=== PATIENT | male | born 1975 | race American Indian/Alaskan Native ===

== ENCOUNTER 2021-01-12 18:04 | Emergency (ER) | payer OTHER, SELFPAY ==
[2021-01-12 18:12] VITALS: BP 150/101; PULSE 81; RESP 16; TEMP 37.2; BMI 26.7
--- NOTE | 2021-01-12 18:26 | ED.GENADULT ---
HPI - General Adult General Chief complaint: Psychiatric Symptoms Stated complaint: crisis Time Seen by Provider: 01/12/21 18:09 Source: patient Mode of arrival: ambulatory Limitations: no limitations History of Present Illness HPI narrative: Patient presents to ED for alcohol intoxication and acting aggressive toward family. Patient brought in under police custody. Family called because of a concern because patient self become erratic and makes being homicidal statements toward staff. deck officer and behavior health network evaluation also states this morning patient told his mother that he want to kill himself and also last Tuesday he was found wandering in the street. Patient himself presently denies any homicidal or suicidal ideation. Related Data Allergies Allergy/AdvReac Type Severity Reaction Status Date / Time duloxetine [From CYMBALTA] Allergy Unknown RASH Verified 01/12/21 18:21 SEAFOOD Allergy Unknown ANAPHYLAXIS Uncoded 08/07/20 15:05 Review of Systems Review of Systems: Yes all other systems are reviewed and are negative Constitutional: Constitutional: Reports as per HPI and Reports no additional constitutional complaints Eyes: Eyes: Reports as per HPI and Reports no additional eye complaints ENT: Reports system reviewed and no additional complaints, except as documented and Reports as per HPI Cardiovascular: Cardiovascular: Reports as per HPI and Reports no additional cardiovascular complaints Respiratory: Respiratory: Reports as per HPI and Reports no additional respiratory complaints Gastrointestinal: Gastrointestinal: Reports as per HPI and Reports no additional gastrointestinal complaints Genitourinary: Genitourinary: Reports as per HPI Musculoskeletal: Musculoskeletal: Reports no additional musculoskeletal complaints and Reports as per HPI Neurologic: Reports system reviewed and no additional complaints, except as documented and Reports as per HPI Psychiatric: Psychiatric: Reports no additional psychiatric complaints and Reports as per HPI [facility] Past Medical History Medical History (Updated 01/12/21 @ 18:15 by Nancy Mathis) Anxiety Depression Social History Social History Advance Directives: No Advance Directives Information Provided: Yes Physical Exam Vital Signs: Vital Signs: Last Vital Signs Temp 98.9 F 01/12/21 22:29 Pulse 66 01/12/21 22:29 Resp 16 01/12/21 22:29 BP 155/93 H 01/12/21 22:29 Pulse Ox 98 01/12/21 22:29 Body Mass Index 26.7 Const: Other: Alcohol on breath General: cooperative, healthy appearing, comfortable, no acute distress, well developed, alert, awake and Physically active Orientation/consciousness: patient oriented x3 HENMT: Head: Yes normal to inspection, Yes No palpable skull fracture present, Yes normocephalic, Yes atraumatic, No abrasion, No Holder's sign, No contusion, No cranial bruits, No hematoma, No laceration, No occipital foramen tenderness, No palpable skull fracture, No raccoon eyes, No scalp tenderness, No Temporal artery tenderness present and No periorbital ecchymosis Eyes: General: appearance normal, both eyes and all related structures Neck: Neck: Yes normal visual inspection, Yes full ROM, Yes no lymphadenopathy, Yes no meningeal signs, Yes trachea midline, Yes supple and No tender Chest: Chest palpation & inspection: normal inspection of the chest and normal palpation of entire chest wall Resp: Effort & Inspection: normal respiratory effort and able to speak in complete sentences Auscultation: clear to auscultation bilaterally Cardio: Jugular venous distension: no JVD Heart sounds: S1 normal heart sound present and S2 normal heart sound present GI: Inspection: Yes normal to inspection and No abdominal wall ecchymosis Palpation (GI): Soft to palpation, not firm, nontender, no guarding and not rigid : General: No CVA tenderness and Yes no CVA tenderness Back/Spine/Pelvis: Back: no CVA tenderness, No CVA tenderness and No back tenderness Skin: General skin exam: no rashes or lesions noted and elasticity normal Neuro: General: patient oriented x3, no meningeal signs and CN's II-XI intact bilaterally Cranial nerves: Yes CN's II-XII intact bilaterally Extrem: General: Yes normal to inspection and Yes full ROM Psych: Appearance: grossly normal, well kempt and not disheveled Course Course Course Narrative: Patient will have lab work done and S evaluation. Reevaluation(s) Reevaluation #1: Pending N evaluation. cASE SIGNED OUT TO kavon Braden Time: 22:10 Medical Decision Making Lab Data Result diagrams: 01/12/21 19:32 01/12/21 19:32 Labs: Lab Results 01/12/21 01/12/21 01/12/21 Range/Units 19:30 19:32 19:32 WBC 12.0 H (4.8-10.8) X10*3/uL RBC 4.66 (4.60-5.80) X10*6/uL Hgb 14.4 (14.0-18.0) g/dl Hct 43.3 (42-52) % MCV 92.9 (80-98) fL MCH 30.9 (27.0-33.0) pg MCHC 33.3 (31.0-36.0) g/dl RDW 12.5 (11.0-16.0) % Plt Count 308 (160-400) X10*3/uL MPV 9.0 L (9.4-12.4) fL Immature Gran % (Auto) 0.3 (0.0-0.4) % Neut % (Auto) 55.5 (45-73) % Lymph % (Auto) 36.2 (20-40) % [place] % (Auto) 5.3 (2-11) % Eos % (Auto) 2.2 (0-4) % Baso % (Auto) 0.5 (0-2) % Lymph # (Auto) 4.3 (1.2-4.9) X10*3/uL [place] # (Auto) 0.6 (0.1-1.2) X10*3/uL Eos # (Auto) 0.3 (0.0-0.4) X10*3/uL Baso # (Auto) 0.1 (0.0-0.2) X10*3/uL Abs Immat Gran (auto) 0.04 H (0.00-0.03) X10*3/uL Absolute Neuts (auto) 6.6 (2.0-8.3) X10*3/uL Absolute Nucleated RBC 0.000 (0.0-0.012) X10*3/uL Nucleated RBC % (auto) 0.0 (0.0-0.2) /100WBC Sodium 139 (135-145) mmol/L Potassium 3.9 (3.3-5.1) mmol/L Chloride 106 (96-108) mmol/L Carbon Dioxide 25 (22-29) mmol/L Anion Gap 12 (12-20) BUN 11 (9-16) mg/dL Creatinine 0.85 (0.5-1.4) mg/dL Estim Creat Clear Calc 116.8 Estimated GFR > 60 Random Glucose 83 (60-115) mg/dL Calcium 8.9 (8.4-10.2) mg/dL Total Bilirubin 0.6 (0.0-1.0) mg/dL Direct Bilirubin 0.3 (0.0-0.5) mg/dL AST 23 (5-37) U/L ALT 26 (0-40) U/L Alkaline Phosphatase 77 (39-117) U/L Total Protein 7.0 (6.5-8.0) g/dL Albumin 4.0 (3.5-5.0) g/dL Urine Opiates Screen Not Detected (Not Detect) Ur Barbiturates Screen Not Detected (Not Detect) Ur Phencyclidine Scrn Not Detected (Not Detect) Ur Amphetamines Screen Not Detected (Not Detect) U Benzodiazepines Scrn Not Detected (Not Detect) Urine Cocaine Screen Not Detected (Not Detect) U Marijuana (THC) Screen POSITIVE H (Not Detect) Ethyl Alcohol mg/dL COVID-19 (RAF) (Negative) COVID-19 Clin Com 01/12/21 01/12/21 Range/Units 19:32 20:16 WBC (4.8-10.8) X10*3/uL RBC (4.60-5.80) X10*6/uL Hgb (14.0-18.0) g/dl Hct (42-52) % MCV (80-98) fL MCH (27.0-33.0) pg MCHC (31.0-36.0) g/dl RDW (11.0-16.0) % Plt Count (160-400) X10*3/uL MPV (9.4-12.4) fL Immature Gran % (Auto) (0.0-0.4) % Neut % (Auto) (45-73) % Lymph % (Auto) (20-40) % [place] % (Auto) (2-11) % Eos % (Auto) (0-4) % Baso % (Auto) (0-2) % Lymph # (Auto) (1.2-4.9) X10*3/uL [place] # (Auto) (0.1-1.2) X10*3/uL Eos # (Auto) (0.0-0.4) X10*3/uL Baso # (Auto) (0.0-0.2) X10*3/uL Abs Immat Gran (auto) (0.00-0.03) X10*3/uL Absolute Neuts (auto) (2.0-8.3) X10*3/uL Absolute Nucleated RBC (0.0-0.012) X10*3/uL Nucleated RBC % (auto) (0.0-0.2) /100WBC Sodium (135-145) mmol/L Potassium (3.3-5.1) mmol/L Chloride (96-108) mmol/L Carbon Dioxide (22-29) mmol/L Anion Gap (12-20) BUN (9-16) mg/dL Creatinine (0.5-1.4) mg/dL Estim Creat Clear Calc Estimated GFR Random Glucose (60-115) mg/dL Calcium (8.4-10.2) mg/dL Total Bilirubin (0.0-1.0) mg/dL Direct Bilirubin (0.0-0.5) mg/dL AST (5-37) U/L ALT (0-40) U/L Alkaline Phosphatase (39-117) U/L Total Protein (6.5-8.0) g/dL Albumin (3.5-5.0) g/dL Urine Opiates Screen (Not Detect) Ur Barbiturates Screen (Not Detect) Ur Phencyclidine Scrn (Not Detect) Ur Amphetamines Screen (Not Detect) U Benzodiazepines Scrn (Not Detect) Urine Cocaine Screen (Not Detect) U Marijuana (THC) Screen (Not Detect) Ethyl Alcohol 170 mg/dL COVID-19 (RAF) Negative (Negative) COVID-19 Clin Com See Note
[2021-01-12 19:46] LABS: MANUAL DIFF FLAG NO
[2021-01-12 19:48] LABS: Basophils Absolute Auto 0.1 X10*3/uL (0.0-0.2); Basophils Percent Auto 0.5 % (0-2); Eosinophils Absolute Auto 0.3 X10*3/uL (0.0-0.4); Eosinophils Percent Auto 2.2 % (0-4); Hematocrit 43.3 % (42-52); Hemoglobin 14.4 g/dl (14.0-18.0); Imm Gran Abs Auto 0.04 X10*3/uL (0.00-0.03); Imm Gran Pct Auto 0.3 % (0.0-0.4); Lymphocytes Absolute Auto 4.3 X10*3/uL (1.2-4.9); Lymphocytes Percent Auto 36.2 % (20-40); Mean Corpuscular HGB Conc 33.3 g/dl (31.0-36.0); Mean Corpuscular Hemoglobin 30.9 pg (27.0-33.0); Mean Corpuscular Volume 92.9 fL (80-98); Monocytes Absolute Auto 0.6 X10*3/uL (0.1-1.2); Monocytes Percent Auto 5.3 % (2-11); Neutrophils Absolute Auto 6.6 X10*3/uL (2.0-8.3); Neutrophils Percent Auto 55.5 % (45-73); Platelet Count 308 X10*3/uL (160-400); Red Blood Count 4.66 X10*6/uL (4.60-5.80); Red Cell Distribution Width 12.5 % (11.0-16.0)
[2021-01-12 20:03] LABS: Amphetamine Screen Urine Not Detected (Not Detect); Barbiturates, Urine Not Detected (Not Detect); Cannabinoid Screen Urine POSITIVE (Not Detect); Cocaine Screen Urine Not Detected (Not Detect); Opiate Screen Urine Not Detected (Not Detect); Phencyclidine Screen Urine Not Detected (Not Detect)
--- NOTE | 2021-01-12 20:03 | PC.NURSE ---
Pt resting on recliner in NAD, breathing with ease on RA. Pt aaox4, calm cooperative at this time, agreeable and pleasant to pt care at this time. Pt offers no immediate concerns. Sitter at recliner's side.
[2021-01-12 20:11] LABS: Benzodiazepines Screen Urine Not Detected (Not Detect)
[2021-01-12 20:12] LABS: Ethanol 170 mg/dL
[2021-01-12 20:15] LABS: Alanine Aminotransferase 26 U/L (0-40); Alkaline Phosphatase 77 U/L (39-117); Anion Gap 12 (12-20); Aspartate Amino Transferase 23 U/L (5-37); Bilirubin Direct 0.3 mg/dL (0.0-0.5); Bilirubin Total 0.6 mg/dL (0.0-1.0); Blood Urea Nitrogen 11 mg/dL (9-16); Calcium 8.9 mg/dL (8.4-10.2); Carbon Dioxide 25 mmol/L (22-29); Chloride 106 mmol/L (96-108); Creatinine Clr Calc Pharmacy 116.8; Estimated Glomerular Filt Rate > 60; Glucose Random 83 mg/dL (60-115); Potassium 3.9 mmol/L (3.3-5.1); Sodium 139 mmol/L (135-145)
[2021-01-12 20:39] LABS: COVID-19 Test Negative (Negative)
[2021-01-12 22:29] VITALS: BP 155/93; PULSE 66; RESP 16; TEMP 37.2; O2SAT 98
--- NOTE | 2021-01-12 22:53 | MHC.CARE ---
Late entry-- referral faxed to [facility] for crisis evaluation, called to confirm, ETA after 11:30pm
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
[2021-01-13] VITALS (9 sets, daily range): BP systolic 143–155; BP diastolic 84–94; PULSE 59–78; RESP 14–20; TEMP 36.5–37.1; O2SAT 97–99
--- NOTE | 2021-01-13 00:13 | PC.NURSE ---
Pt awaiting crisis eval, is aware of plan. Pt is agreeable to plan but states they need to hurry up or I'm leaving. Pt refusing nighttime meds. Pt is calm in conversation. Sitter at recliner's side.
--- NOTE | 2021-01-13 01:54 | PC.NURSE ---
Pt resting in recliner in NAD, breathing with ease on RA. Pt quiet, minimally conversational with staff. Pt compliant with pt care but easily agitated with questioning. Sitter at recliner's side.
--- NOTE | 2021-01-13 02:57 | PC.NURSE ---
Per Jackie, pt is bedsearch for inpatient psych care
--- NOTE | 2021-01-13 04:57 | PC.NURSE ---
PT EVALUATED BY N, AWARE THAT HE WILL NEED TO STAY AND WILL BE CONSIDERED A BED SEARCH. PT REMAINS A SECTION 12.
[2021-01-13] MEDS: LORazepam 1 MG TABLET 2 MG PO ×2 (09:23→21:41)
[2021-01-13] MEDS: FLUoxetine HCl 20 MG CAPSULE 40 MG PO (09:23)
[2021-01-13] MEDS: Lithium Carbonate 300 MG CAPSULE 600 MG PO ×2 (09:23→21:05)
--- NOTE | 2021-01-13 09:25 | PC.NURSE ---
Pt calm/cooperative. Accepted AM meds and given PRN ativan for c/o increased anxiety. Pt denies SI/HI at this time but reports being upset over family calling police and sending him to ED. Pt observer in place for safety. Vitals stable.
--- NOTE | 2021-01-13 09:27 | PC.NURSE ---
Section 12 bedsearch
--- NOTE | 2021-01-13 14:01 | PC.NURSE ---
S/P Ativan pt slept most of morning. Calm/cooperative. Spoke with Socorro (childcare director from [facility]-contact [phone]) and updated with verbal permission of pt. Pt observer at bedside for monitoring/safety
--- NOTE | 2021-01-13 14:50 | PC.NURSE ---
Pt requesting to use phone, per report pt threatening to family members on phone last night. This RN informing pt he will be unable to use phone d/t threats made. Pt agreeable to not make any further threatening statements and wants to apologize. Pt spoke to brothraad Du on phone and remained calm/cooperative. Pt ate lunch, pt observer remains by side
--- NOTE | 2021-01-13 18:13 | PC.NURSE ---
Pt transferred from main ED- pt cooperative, affect even- pt familiar w/ pod and w/ psych inpatient process. states he has been to [facility] and hopes to be able to go again. pt denies si, reports only anxiety at this time.
--- NOTE | 2021-01-13 19:45 | PC.NURSE ---
Patient in bed appears sleeping, no distress observed/reported at this time, will continue to monitor.
[2021-01-13] MEDS: traZODone HCL 50 MG TABLET 150 MG PO (21:05)
--- NOTE | 2021-01-14 07:17 | PC.NURSE ---
REPORT FROM TAI, PT PROVIDED BREAKFAST TRAY, SLEEPING AT THIS TIME
[2021-01-14 09:36] VITALS: BP 117/76; PULSE 66; RESP 16; TEMP 37.2; O2SAT 98
[2021-01-14] MEDS: Lithium Carbonate 300 MG CAPSULE 600 MG PO ×2 (09:39→20:20)
[2021-01-14] MEDS: FLUoxetine HCl 20 MG CAPSULE 40 MG PO (09:39)
[2021-01-14] MEDS: LORazepam 1 MG TABLET 2 MG PO ×2 (09:40→21:45)
--- NOTE | 2021-01-14 15:41 | PC.NURSE ---
Patient in no distress. Patient resting.
[2021-01-14 17:05] VITALS: BP 147/83; PULSE 60; RESP 16; TEMP 37.2; O2SAT 99
--- NOTE | 2021-01-14 19:36 | PC.NURSE ---
Patient is on phone talking to family member and is being supervised due to homicidal statements that he makes when he gets agitated. Patient presents with irritable behavior. No distress reported, will continue to monitor.
[2021-01-14] MEDS: traZODone HCL 50 MG TABLET 150 MG PO (20:20)
[2021-01-14 21:04] VITALS: BP 154/110; PULSE 57; RESP 18; TEMP 37.2; O2SAT 99
[2021-01-15 06:00] VITALS: BP 125/78; PULSE 60; RESP 16; TEMP 36.7; O2SAT 99
--- NOTE | 2021-01-15 06:59 | PC.NURSE ---
Report recieved Pt currently sleeping, respirations even and unlabored, in no apparent distress. Pt is inpatient bedsearch.
[2021-01-15] MEDS: FLUoxetine HCl 20 MG CAPSULE 40 MG PO (09:03)
[2021-01-15] MEDS: Lithium Carbonate 300 MG CAPSULE 600 MG PO (09:04)
[2021-01-15] MEDS: LORazepam 1 MG TABLET 2 MG PO ×2 (09:07→16:07)
[2021-01-15 09:17] VITALS: BP 136/76; PULSE 59; RESP 16; TEMP 37.2; O2SAT 99
--- NOTE | 2021-01-15 10:07 | PC.NURSE ---
PT sleeping, wakes easily to verbal stimuli. PT calm and cooperative, denies complaints.
== END 2021-01-15 16:23 ==
PROVIDERS: Physician Assistant; Emergency Provider Emergency Medicine
DX: F31.9 Bipolar disorder, unspecified (principal); F10.920 Alcohol use, unspecified with intoxication, uncomplicated; Y90.6 Blood alcohol level of 120-199 mg/100 ml; F12.90 Cannabis use, unspecified, uncomplicated; R45.850 Homicidal ideations; F41.9 Anxiety disorder, unspecified; F32.9 Major depressive disorder, single episode, unspecified; Z20.822 Contact with and (suspected) exposure to COVID-19
CPT/HCPCS: 36415; 80053; 80076; 80307; 80320; 82248; 85025; 87635; 99285

== ENCOUNTER 2021-01-29 15:19 | Emergency (ER) | payer OTHER, SELFPAY ==
[2021-01-29 15:30] VITALS: BP 141/74; PULSE 66; RESP 16; TEMP 36.7; O2SAT 97; BMI 27.8
[2021-01-29 15:50] LABS: Glucose Urine UA NEG (NEG); Leukocyte Esterase Urine NEG (NEG); Nitrite Urine NEG (NEG); PH 6.5 (5.0-8.0); Specific Gravity - Urine <= 1.005 (1.005-1.025); Urine Blood NEG (NEG); Urine Ketones NEG (NEG); Urine Protein NEG (NEG-TRACE)
[2021-01-29 15:53] LABS: Appearance Urine CLEAR; Color Urine YELLOW
[2021-01-29 16:18] LABS: Amphetamine Screen Urine Not Detected (Not Detect); Barbiturates, Urine Not Detected (Not Detect); Benzodiazepines Screen Urine Not Detected (Not Detect); Cannabinoid Screen Urine POSITIVE (Not Detect); Cocaine Screen Urine POSITIVE (Not Detect); Opiate Screen Urine Not Detected (Not Detect); Phencyclidine Screen Urine Not Detected (Not Detect)
--- NOTE | 2021-01-29 17:40 | ED_ITS ---
HPI - Psych General Chief Complaint: Psychiatric Symptoms Stated Complaint: SI Time Seen by Provider: 01/29/21 17:40 Source: patient Mode of arrival: ambulatory Limitations: no limitations History of Present Illness HPI Narrative: 45-year-old male with psych history, patient under lot of stress because he is taking care of his mother and his brother who both sick with COVID-19, patient fear anxious under lot of stress feeling depressed and feeling suicidal. Patient had a recent psych admission last week for similar presentation. Patient had a history of suicidal attempt in the past. Related Data Home Medications Medication Instructions Recorded Confirmed fluoxetine 1 cap PO QAM 01/12/21 01/12/21 lithium carbonate 2 cap PO BID 01/12/21 01/12/21 lorazepam 1 tab PO BID PRN 01/12/21 01/12/21 trazodone 1 tab PO BEDTIME 01/12/21 01/12/21 Allergies Allergy/AdvReac Type Severity Reaction Status Date / Time duloxetine [From CYMBALTA] Allergy Unknown RASH Verified 01/12/21 18:21 SEAFOOD Allergy Unknown ANAPHYLAXIS Uncoded 08/07/20 15:05 Review of Systems 2 Review of Systems: Yes all other systems are reviewed and are negative [facility] Past Medical History Medical History Anxiety Depression Social History Social History Advance Directives: No Advance Directives Information Provided: No Physical Exam Vital Signs: Vital Signs: Last Vital Signs Temp 98.1 F 01/29/21 15:30 Pulse 66 01/29/21 15:30 Resp 16 01/29/21 15:30 BP 141/74 H 01/29/21 15:30 Pulse Ox 97 01/29/21 15:30 Body Mass Index 27.8 MDM - Psych Lab Data Labs: Lab Results 01/29/21 01/29/21 Range/Units 15:37 15:37 Urine Color YELLOW Urine Appearance CLEAR Urine pH 6.5 (5.0-8.0) Ur Specific [place] <= 1.005 (1.005-1.025) Urine Protein NEG (NEG-TRACE) MG/DL Urine Glucose (UA) NEG (NEG) MG/DL Urine Ketones NEG (NEG) MG/DL Urine Blood NEG (NEG) Urine Nitrite NEG (NEG) Ur Leukocyte Esterase NEG (NEG) Urine Opiates Screen Not Detected (Not Detect) Ur Barbiturates Screen Not Detected (Not Detect) Ur Phencyclidine Scrn Not Detected (Not Detect) Ur Amphetamines Screen Not Detected (Not Detect) U Benzodiazepines Scrn Not Detected (Not Detect) Urine Cocaine Screen POSITIVE H (Not Detect) U Marijuana (THC) Screen POSITIVE H (Not Detect) Discharge Plan Discharge Prescriptions: No Action fluoxetine 40 mg capsule 1 cap PO QAM RF: 0 lorazepam 2 mg tablet 1 tab PO BID PRN (Reason: Anxiety) RF: 0 lithium carbonate 300 mg capsule 2 cap PO BID RF: 0 trazodone 150 mg tablet 1 tab PO BEDTIME RF: 0
[2021-01-29 18:00] VITALS: BP 139/77; PULSE 65; RESP 18; TEMP 37.1; O2SAT 97
--- NOTE | 2021-01-29 18:42 | PC.NURSE ---
[facility] faxed and called. Confirmed with Jasbir
[2021-01-29 21:26] VITALS: BP 140/87; PULSE 55; RESP 18; TEMP 36.8; O2SAT 99
--- NOTE | 2021-01-29 21:49 | PC.NURSE ---
pharmacy present and pt med reconciliation is being done at this time. pt states he has been weaned off of his lithium and now is on a new mood stabalizer unknown at this time.
[2021-01-29 22:00] VITALS: BP 119/68; RESP 18; TEMP 36.8; O2SAT 97
[2021-01-30] MEDS: LORazepam 1 MG TABLET PO ×3 (01:28→15:43)
[2021-01-30] MEDS: traZODone HCL 100 MG TABLET PO (01:28)
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
--- NOTE | 2021-01-30 07:04 | PC.NURSE ---
Report received. PT currently sleeping, respirations even and unlabored, in no apparent distress. Pt waiting to be seen by N.
--- NOTE | 2021-01-30 08:55 | ECG_ITS ---
Test Reason : [employer] Blood Pressure : / mmHG Vent. Rate : 045 BPM Atrial Rate : 045 BPM P-R Int : 142 ms QRS Dur : 086 ms QT Int : 454 ms P-R-T Axes : 040 049 047 degrees QTc Int : 392 ms Sinus bradycardia with sinus arrhythmia Voltage criteria for left ventricular hypertrophy ST elevation, consider early repolarization Abnormal ECG When compared with ECG of 27-MAY-2020 17:28, QT has shortened Referred By: Mumtaz Ambrosio Electronically Signed By:CLOVIS MONCADA MD
[2021-01-30 09:56] VITALS: BP 114/68; PULSE 55; RESP 16; TEMP 36.6; O2SAT 98
[2021-01-30 13:13] LABS: MANUAL DIFF FLAG NO
[2021-01-30 13:15] LABS: Basophils Percent Auto 0.6 % (0-2); Eosinophils Absolute Auto 0.4 X10*3/uL (0.0-0.4); Eosinophils Percent Auto 5.5 % (0-4); Hematocrit 45.6 % (42-52); Imm Gran Abs Auto 0.01 X10*3/uL (0.00-0.03); Imm Gran Pct Auto 0.1 % (0.0-0.4); Lymphocytes Absolute Auto 2.6 X10*3/uL (1.2-4.9); Lymphocytes Percent Auto 39.1 % (20-40); Mean Corpuscular HGB Conc 32.9 g/dl (31.0-36.0); Mean Corpuscular Hemoglobin 30.8 pg (27.0-33.0); Mean Corpuscular Volume 93.6 fL (80-98); Mean Platelet Volume 8.8 fL (9.4-12.4); Monocytes Absolute Auto 0.4 X10*3/uL (0.1-1.2); Monocytes Percent Auto 5.9 % (2-11); Neutrophils Absolute Auto 3.3 X10*3/uL (2.0-8.3); Neutrophils Percent Auto 48.8 % (45-73); Platelet Count 299 X10*3/uL (160-400); Red Blood Count 4.87 X10*6/uL (4.60-5.80); Red Cell Distribution Width 11.8 % (11.0-16.0); White Blood Count 6.7 X10*3/uL (4.8-10.8)
[2021-01-30 13:20] VITALS: BP 152/82; PULSE 43; RESP 18; TEMP 37; O2SAT 98
[2021-01-30 13:37] LABS: COVID-19 Test Negative (Negative)
[2021-01-30 13:56] LABS: Alanine Aminotransferase 24 U/L (0-40); Alkaline Phosphatase 81 U/L (39-117); Anion Gap 9 (12-20); Aspartate Amino Transferase 20 U/L (5-37); Bilirubin Total 0.5 mg/dL (0.0-1.0); Blood Urea Nitrogen 15 mg/dL (9-16); Calcium 8.8 mg/dL (8.4-10.2); Carbon Dioxide 33 mmol/L (22-29); Chloride 102 mmol/L (96-108); Creatinine Clr Calc Pharmacy 115.5; Estimated Glomerular Filt Rate > 60; Glucose Random 101 mg/dL (60-115); Potassium 4.6 mmol/L (3.3-5.1); Sodium 139 mmol/L (135-145); Total Protein 6.7 g/dL (6.5-8.0)
--- NOTE | 2021-01-30 17:42 | PC.NURSE ---
Pt resting, calm and cooperative. PT waiting to be seen by [facility]. Pt continues to endorse increased depression with SI, no plan or intent at this time.
[2021-01-30 17:56] VITALS: BP 131/70; PULSE 58; RESP 18; TEMP 37
--- NOTE | 2021-01-30 17:59 | PC.NURSE ---
[facility] at bedside for eval.
--- NOTE | 2021-01-30 19:22 | PC.NURSE ---
Patient in bed resting, no distress reported, N assessed the patient disposition updated, section 12 inpatient bed search, will continue to monitor.
[2021-01-30 22:01] VITALS: BP 144/93; PULSE 54; RESP 16; TEMP 37.1; O2SAT 98
[2021-01-30 22:03] VITALS: BP 144/93; PULSE 54
[2021-01-30] MEDS: Propranolol HCL 20 MG TABLET PO (22:03)
[2021-01-30] MEDS: traZODone HCL 100 MG TABLET 200 MG PO (22:03)
[2021-01-30] MEDS: carBAMazepine 200 MG TABLET PO (22:03)
[2021-01-30] MEDS: LORazepam 1 MG TABLET 2 MG PO (22:03)
--- NOTE | 2021-01-30 22:09 | PC.NURSE ---
Patient got agitated and anxious due to unit commotion, med rec completed, medication administered patient compliant, no distress reported at this time, will continue to monitor.
[2021-01-31 02:39] VITALS: BP 104/50; PULSE 52; RESP 17; TEMP 36.6; O2SAT 99
--- NOTE | 2021-01-31 07:40 | PC.NURSE ---
Report received from JOHN Goode. Pt resting, resp unlabored.
[2021-01-31] MEDS: carBAMazepine 200 MG TABLET PO ×2 (08:54→20:28)
[2021-01-31] MEDS: LORazepam 1 MG TABLET 2 MG PO ×2 (08:54→21:14)
[2021-01-31] MEDS: FLUoxetine HCl 20 MG CAPSULE 60 MG PO (08:54)
[2021-01-31 08:59] VITALS: BP 141/78; PULSE 61
[2021-01-31] MEDS: Propranolol HCL 20 MG TABLET PO ×3 (08:59→20:26)
[2021-01-31 09:00] VITALS: BP 141/78; PULSE 61; RESP 20; TEMP 36.8; O2SAT 99
--- NOTE | 2021-01-31 09:16 | PC.NURSE ---
Pt awoke, reported some anxiety, requesting ativan. Pt aware that he is awaiting inpatient bed, states that he continues to be very depressed.
--- NOTE | 2021-01-31 10:47 | PC.NURSE ---
Pt awake, showered, no concerns reported at this time.
--- NOTE | 2021-01-31 11:12 | PC.NURSE ---
Report received from JOHN العراقي. Pt asleep at current. No signs of distress. Respirations even and unlabored. Continues to be an inpatient bed search.
--- NOTE | 2021-01-31 11:25 | PC.NURSE ---
[facility] called to confirm psychiatry consult
--- NOTE | 2021-01-31 11:43 | PC.NURSE ---
Dr. Cardenas meeting with pt at bedside.
--- NOTE | 2021-01-31 12:02 | PM.PSYCN ---
History of Present Illness Date of Service: 01/31/2021 Chief Complaint: SI Reason for Consult: medication management Discussed with referring provider: Yes Sources of Information: patient interviewed and chart reviewed Additional Sources of Information: past medical records. Patient known to this technical writer HPI Narrative: patient presented to the emergency room with worsening depression and stress. Also relapsed on cocaine and marijuana. Patient has a well-known history of bipolar disorder and often presents similarly. Relapse on cocaine is usually a trigger. On this occasion patient states that he has been stressed by taking care of his mother and older brother who have COVID. Also lithium was discontinued at a recent hospitalization in the [facility]. Patient is now on Tegretol but has only been on that for 2 weeks. Patient now presents with helplessness hopelessness and Madelyn and profound depression. he also reports suicidality but no specific plan Past Psychiatric History: Extensively documented in H&P records. Patient had recent hospitalization in the [facility]. He does not remember where. Prior to that he was a [facility]. Medical Evaluation Reviewed: No Personal & Social History: no change. Patient lives with his mother and older brother [facility] Medical History Anxiety Depression Family History: none Social History: patient lives with brother and mother. patient is disabled. He is single and . He is estranged from his daughter was not spoken to him as his ex- does not allow her to speak to him Substance History: . Regular use of cocaine and marijuana. Patient minimizes use Trauma History: patient states he was traumatized by his divorce and inability to see his daughter. Diagnostics Vital Signs (24Hr): Vital Signs - 24 hr 01/30/21 13:20 01/30/21 17:56 01/30/21 22:01 Temperature 98.6 F 98.6 F 98.8 F Pulse Rate 43 L 58 54 Respiratory Rate 18 18 16 Blood Pressure 152/82 H 131/70 144/93 H Pulse Oximetry 98 98 01/30/21 22:03 01/31/21 02:39 01/31/21 08:59 Temperature 97.9 F Pulse Rate 54 52 61 Respiratory Rate 17 Blood Pressure 144/93 H 104/50 L 141/78 H Pulse Oximetry 99 Body Mass Index 27.8 Labs Results: 01/30/21 13:07 01/30/21 13:07 Labs: Laboratory Results - last 48 hr 01/29/21 01/29/21 01/30/21 15:37 15:37 13:07 WBC 6.7 RBC 4.87 Hgb 15.0 Hct 45.6 MCV 93.6 MCH 30.8 MCHC 32.9 RDW 11.8 Plt Count 299 MPV 8.8 L Immature Gran % (Auto) 0.1 Neut % (Auto) 48.8 Lymph % (Auto) 39.1 Wells % (Auto) 5.9 Eos % (Auto) 5.5 H Baso % (Auto) 0.6 Lymph # (Auto) 2.6 Wells # (Auto) 0.4 Eos # (Auto) 0.4 Baso # (Auto) 0.0 Abs Immat Gran (auto) 0.01 Absolute Neuts (auto) 3.3 Absolute Nucleated RBC 0.000 Nucleated RBC % (auto) 0.0 Sodium Potassium Chloride Carbon Dioxide Anion Gap BUN Creatinine Estim Creat Clear Calc Estimated GFR Random Glucose Calcium Total Bilirubin AST ALT Alkaline Phosphatase Total Protein Albumin Urine Color YELLOW Urine Appearance CLEAR Urine pH 6.5 Ur Specific Brownell <= 1.005 Urine Protein NEG Urine Glucose (UA) NEG Urine Ketones NEG Urine Blood NEG Urine Nitrite NEG Ur Leukocyte Esterase NEG Urine Opiates Screen Not Detected Ur Barbiturates Screen Not Detected Ur Phencyclidine Scrn Not Detected Ur Amphetamines Screen Not Detected U Benzodiazepines Scrn Not Detected Urine Cocaine Screen POSITIVE H U Marijuana (THC) Screen POSITIVE H COVID-19 (RAF) COVID-19 Clin Com 01/30/21 01/30/21 13:07 13:07 WBC RBC Hgb Hct MCV MCH MCHC RDW Plt Count MPV Immature Gran % (Auto) Neut % (Auto) Lymph % (Auto) Wells % (Auto) Eos % (Auto) Baso % (Auto) Lymph # (Auto) Wells # (Auto) Eos # (Auto) Baso # (Auto) Abs Immat Gran (auto) Absolute Neuts (auto) Absolute Nucleated RBC Nucleated RBC % (auto) Sodium 139 Potassium 4.6 Chloride 102 Carbon Dioxide 33 H Anion Gap 9 L BUN 15 Creatinine 0.93 Estim Creat Clear Calc 115.5 Estimated GFR > 60 Random Glucose 101 Calcium 8.8 Total Bilirubin 0.5 AST 20 ALT 24 Alkaline Phosphatase 81 Total Protein 6.7 Albumin 4.0 Urine Color Urine Appearance Urine pH Ur Specific Brownell Urine Protein Urine Glucose (UA) Urine Ketones Urine Blood Urine Nitrite Ur Leukocyte Esterase Urine Opiates Screen Ur Barbiturates Screen Ur Phencyclidine Scrn Ur Amphetamines Screen U Benzodiazepines Scrn Urine Cocaine Screen U Marijuana (THC) Screen COVID-19 (RAF) Negative COVID-19 Clin Com See Note Mental Status Exam Mental Status Exam Patient Appearance: Fatigued Patient Orientation: Person, Place, Time and Situation Level of Consciousness: Awake Patient Behavior: Cooperative, Passive, Fatigued and Poor Eye Contact Mood Description: Depressed Patient Cognition Impaired: No Ability to Follow Directions: Excellent Speech Pattern: Clear and Mumbled Memory Description: Intact Hallucinations: None Delusions: Not Present Thought Process: Intact Thought Content: positive for Suicidal Ideation Depressive Symptoms: Increased Anxiety, Crying Spells, Hopelessness and Thoughts of /Suicide Judgement: Poor Medications Medications Current Medications Generic Name Dose Route Start Last Admin Trade Name Freq PRN Reason Stop Dose Admin Carbamazepine 200 mg 01/30/21 22:00 01/31/21 08:54 Carbamazepine 200 Mg Tablet PO 200 mg BID YOBANI Administration Fluoxetine HCl 60 mg 01/31/21 09:00 01/31/21 08:54 Fluoxetine Hcl 20 Mg Capsule PO 60 mg DAILY YOBANI Administration Lorazepam 2 mg 01/30/21 21:45 01/31/21 08:54 Lorazepam 1 Mg Tablet PO 2 mg BID PRN Administration Anxiety Propranolol HCl 20 mg 01/30/21 22:00 01/31/21 08:59 Propranolol Hcl 20 Mg Tablet PO 20 mg TID YOBANI Administration Protocol Trazodone HCl 200 mg 01/30/21 21:45 01/30/21 22:03 Trazodone Hcl 100 Mg Tablet PO 200 mg BEDTIME PRN Administration Anxiety Allergies Allergies Allergy/AdvReac Type Severity Reaction Status Date / Time duloxetine [From CYMBALTA] Allergy Unknown RASH Verified 01/12/21 18:21 SEAFOOD Allergy Unknown ANAPHYLAXIS Uncoded 08/07/20 15:05 Assessment & Plan Assessment & Plan (1) Bipolar disorder, now depressed: Status: Acute Code(s): F31.30 - Bipolar disorder, current episode depressed, mild or moderate severity, unspecified (2) Cocaine use disorder, moderate, dependence: Status: Acute Code(s): F14.20 - Cocaine dependence, uncomplicated (3) Suicidal ideation: Status: Acute Code(s): R45.168 - Suicidal ideations Recommendations: we had a discussion about medication choices. Continue current medications. Patient should give new medications longer time before deciding they were not effective. Patient has a tendency to prematurely state medication failure. Patient is a bed search Greater than 50% of the session was spent on counseling and/or coordination of care
--- NOTE | 2021-01-31 13:08 | PC.NURSE ---
Pt sleeping at current. No signs of distress. Respirations even and unlabored.
--- NOTE | 2021-01-31 13:25 | PC.NURSE ---
[facility] at bedside for MHU. Remains a section 12 bed search
[2021-01-31 15:28] VITALS: BP 133/72; PULSE 62
[2021-01-31] MEDS: HaloperidoL 1 MG TABLET 2 MG PO (15:29)
--- NOTE | 2021-01-31 15:34 | PC.NURSE ---
Pt reporting increasing anxiety. Requesting ativan. RN explained to pt that this would be the last dose pt could receive today (ordered as BID PRN, first dose administered at 0854). Became agitated, You don't want to see what I can do if I don't have ativan , offered several other PRN mediation options, pt declined them all, I don't want to fall asleep, I am withdrawing from alcohol . Pt not endorsing or displaying any ETOH withdrawal symptoms other than anxiety. Continuing to escalate, security called. RN spoke with PHOENIX Tolbert. Haldol 5 MG PO x1 ordered. Pt took haldol and scheduled propanolol with much encouragement. Went to his room on his own without further issue. Pt currently laying in bed at current, calm. Will continue to monitor for needs.
--- NOTE | 2021-01-31 16:36 | PC.NURSE ---
Pt asleep at current. No signs of distress. Respirations even and unlabored.
[2021-01-31 19:38] VITALS: BP 153/88; PULSE 49; RESP 17; TEMP 36.9; O2SAT 99
--- NOTE | 2021-01-31 19:58 | PC.NURSE ---
Patient in bed resting quietly, no distress reported at this time, compliant VS assessment, will continue to monitor.
[2021-01-31 20:26] VITALS: BP 153/88; PULSE 54
[2021-01-31] MEDS: traZODone HCL 100 MG TABLET 200 MG PO (20:26)
--- NOTE | 2021-02-01 07:09 | PC.NURSE ---
Report received from JOHN Goode. Pt awake, affect even, no concerns reported.
[2021-02-01 07:30] VITALS: BP 130/73; PULSE 45; RESP 20; TEMP 36.6; O2SAT 98
--- NOTE | 2021-02-01 08:48 | PC.NURSE ---
pt resting- provider aware of current heart rate- AM propranolol to be held.
[2021-02-01] MEDS: carBAMazepine 200 MG TABLET PO ×2 (09:45→20:49)
[2021-02-01] MEDS: FLUoxetine HCl 20 MG CAPSULE 60 MG PO (09:45)
[2021-02-01] MEDS: LORazepam 1 MG TABLET 2 MG PO ×2 (09:48→21:51)
[2021-02-01 09:50] VITALS: BP 130/73; PULSE 45
--- NOTE | 2021-02-01 10:19 | PC.NURSE ---
Pt awoken for mewdications. Continues to be highly focused on receiving ativan, but aware that he can receive BID only. No other concerns reported, affect even. Prpranolol held per discussion w/ A Daniel.
--- NOTE | 2021-02-01 12:32 | PC.NURSE ---
Pt resting, resp unlabored.
[2021-02-01 14:00] VITALS: RESP 20
--- NOTE | 2021-02-01 14:23 | PC.NURSE ---
Pt resting, resp unlabored
[2021-02-01] MEDS: QUEtiapine Fumarate 50 MG TABLET PO (15:39)
--- NOTE | 2021-02-01 17:06 | PC.NURSE ---
Late entry: pt approached RN, stating that he was feeling 'agitated' as if 'I might punch the TV.' Pt states he is willing to take seroquel at this time for agitation. Reviewed w/ A Daniel, pt medicated as ordered, currently resting, resp unlabored.
[2021-02-01 17:30] VITALS: BP 127/79; PULSE 64; RESP 20; TEMP 36.7; O2SAT 98
--- NOTE | 2021-02-01 17:37 | PC.NURSE ---
pt repoorts good effect from seroquel given- reduced agitation, pt was able to rest.
--- NOTE | 2021-02-01 18:44 | PC.NURSE ---
pt restying, resp unlabored
--- NOTE | 2021-02-01 19:09 | PC.NURSE ---
Patient in bed appears sleeping, no distress observed/reported, per report patient continuos to present medication seeking behavior, will continue to monitor.
[2021-02-01 20:49] VITALS: BP 131/74; PULSE 56
[2021-02-01] MEDS: traZODone HCL 100 MG TABLET 200 MG PO (20:49)
[2021-02-01] MEDS: Propranolol HCL 20 MG TABLET 10 MG PO (20:49)
[2021-02-01 20:54] VITALS: BP 131/74; PULSE 56; RESP 16; TEMP 36.3; O2SAT 96
--- NOTE | 2021-02-01 21:13 | PC.NURSE ---
Patient just woke up, out of room for bathroom use and back, spoke with his brother Florian briefly, compliant with HS PO medication, will continue to monitor.
[2021-02-02 06:00] VITALS: BP 129/77; PULSE 52; RESP 16; TEMP 36.7; O2SAT 100
--- NOTE | 2021-02-02 06:57 | PC.NURSE ---
Report recieved. PT currently resting, calm and cooperative. Pt is inpatient bedsearch.
[2021-02-02 09:50] VITALS: BP 122/81; PULSE 50; RESP 18; TEMP 36.6; O2SAT 99
[2021-02-02 10:13] VITALS: BP 122/81; PULSE 50
[2021-02-02] MEDS: Propranolol HCL 10 MG TABLET PO (10:13)
[2021-02-02] MEDS: FLUoxetine HCl 20 MG CAPSULE 60 MG PO (10:13)
[2021-02-02] MEDS: carBAMazepine 200 MG TABLET PO (10:13)
[2021-02-02] MEDS: LORazepam 1 MG TABLET 2 MG PO (10:13)
--- NOTE | 2021-02-02 14:28 | PC.NURSE ---
Per provider, okay to discontinue CIWA
--- NOTE | 2021-02-02 15:17 | PC.NURSE ---
PT reports frustration over long wait for placement. PT states he is getting agitated, can be seen pacing in his room. Offered PRN medication, PT declined at this time.
[2021-02-02 16:58] VITALS: BP 124/92; PULSE 54; RESP 16; TEMP 37.2; O2SAT 97
[2021-02-02 19:35] VITALS: BP 170/100; PULSE 61; RESP 18; TEMP 36.9; O2SAT 97
--- NOTE | 2021-02-02 19:54 | PC.NURSE ---
per lost charge card clerk and [facility] called cab for patietn. patient had no questions regarding d/c intruction.
== END 2021-02-02 20:02 | disposition home or self-care (01) ==
PROVIDERS: Nurse Practitioner Primary Care; Emergency Provider Emergency Medicine
DX: F31.30 Bipolar disorder, current episode depressed, mild or moderate severity, unspecified (principal); F41.9 Anxiety disorder, unspecified; R45.851 Suicidal ideations; F14.20 Cocaine dependence, uncomplicated; Z20.822 Contact with and (suspected) exposure to COVID-19; Z91.5 Personal history of self-harm; Z76.5 Malingerer [conscious simulation]
CPT/HCPCS: 36415; 80053; 80307; 81003; 85025; 87635; 93005; 99285

== ENCOUNTER 2021-03-20 13:01 | Emergency (ER) | payer OTHER, SELFPAY ==
[2021-03-20] VITALS (7 sets, daily range): BP systolic 133–137; BP diastolic 76–79; PULSE 61–72; RESP 16–20; TEMP 36.7–36.8; O2SAT 97–98; BMI 25.7
--- NOTE | 2021-03-20 14:11 | ECG_ITS ---
Test Reason : MEDICAL CLEARANCE Blood Pressure : / mmHG Vent. Rate : 048 BPM Atrial Rate : 048 BPM P-R Int : 000 ms QRS Dur : 088 ms QT Int : 466 ms P-R-T Axes : 040 048 031 degrees QTc Int : 416 ms Sinus bradycardia Voltage criteria for left ventricular hypertrophy Early repolarization Abnormal ECG When compared with ECG of 30-JAN-2021 13:12, No significant changes seen Referred By: Radha Braswell Electronically Signed By:CLOVIS MONCADA MD
--- NOTE | 2021-03-20 14:30 | PC.NURSE ---
Pt resting, resp unlabored. Cooperative w/ changeover on arrival, familiar with unit and crisis process. Reviewed PRN medications w/ pt w/ provider.
[2021-03-20 15:10] LABS: MANUAL DIFF FLAG NO
[2021-03-20 15:15] LABS: Glucose Urine UA NEG (NEG); Leukocyte Esterase Urine NEG (NEG); Nitrite Urine NEG (NEG); PH 6.5 (5.0-8.0); Urine Blood NEG (NEG); Urine Ketones NEG (NEG); Urine Protein NEG (NEG-TRACE)
[2021-03-20 15:17] LABS: Appearance Urine CLEAR; Color Urine YELLOW
[2021-03-20 15:20] LABS: INTERNATIONAL NORM RATIO 1.1 (0.9-1.1); Prothrombin Time 13.1 SEC (10.8-13.0)
[2021-03-20 15:21] LABS: Basophils Percent Auto 0.3 % (0-2); Eosinophils Absolute Auto 0.2 X10*3/uL (0.0-0.4); Eosinophils Percent Auto 3.4 % (0-4); Hematocrit 42.1 % (42-52); Hemoglobin 14.2 g/dl (14.0-18.0); Imm Gran Abs Auto 0.01 X10*3/uL (0.00-0.03); Imm Gran Pct Auto 0.1 % (0.0-0.4); Lymphocytes Absolute Auto 2.5 X10*3/uL (1.2-4.9); Lymphocytes Percent Auto 35.5 % (20-40); Mean Corpuscular HGB Conc 33.7 g/dl (31.0-36.0); Mean Corpuscular Hemoglobin 30.5 pg (27.0-33.0); Mean Corpuscular Volume 90.5 fL (80-98); Mean Platelet Volume 9.3 fL (9.4-12.4); Monocytes Absolute Auto 0.6 X10*3/uL (0.1-1.2); Neutrophils Absolute Auto 3.7 X10*3/uL (2.0-8.3); Neutrophils Percent Auto 52.7 % (45-73); Platelet Count 270 X10*3/uL (160-400); Red Blood Count 4.65 X10*6/uL (4.60-5.80)
[2021-03-20 15:31] LABS: COVID-19 Test Negative (Negative); IDNOW Serial# 9DD0AD1C
[2021-03-20 15:39] LABS: Magnesium 1.8 mg/dL (1.6-2.6)
[2021-03-20 15:40] LABS: Ethanol < 10 mg/dL
[2021-03-20 15:42] LABS: Alanine Aminotransferase 14 U/L (0-40); Alkaline Phosphatase 96 U/L (39-117); Anion Gap 11 (12-20); Aspartate Amino Transferase 13 U/L (5-37); Bilirubin Direct 0.2 mg/dL (0.0-0.5); Bilirubin Total 0.4 mg/dL (0.0-1.0); Blood Urea Nitrogen 16 mg/dL (9-16); Calcium 9.5 mg/dL (8.4-10.2); Carbon Dioxide 30 mmol/L (22-29); Chloride 104 mmol/L (96-108); Creatinine Clr Calc Pharmacy 112.9; Estimated Glomerular Filt Rate > 60; Glucose Random 116 mg/dL (60-115); Lipase 16 U/L (8-78); Potassium 4.6 mmol/L (3.3-5.1); Sodium 140 mmol/L (135-145)
[2021-03-20 15:43] LABS: Amphetamine Screen Urine Not Detected (Not Detect); Barbiturates, Urine Not Detected (Not Detect); Benzodiazepines Screen Urine Not Detected (Not Detect); Cannabinoid Screen Urine POSITIVE (Not Detect); Cocaine Screen Urine Not Detected (Not Detect); Opiate Screen Urine Not Detected (Not Detect); Phencyclidine Screen Urine Not Detected (Not Detect)
[2021-03-20] MEDS: LORazepam 1 MG TABLET PO (15:46)
--- NOTE | 2021-03-20 16:06 | PC.NURSE ---
Pt requesting Ativan for anxiety. Pt states that during last hospitalization, providers did not prescribe Ativan- pt states Vistaril is not helpful for anxiety and that he is hopeful that a medication change will alleviate the depression and anxiety he experiences.
--- NOTE | 2021-03-20 16:36 | ED_ITS ---
HPI - Psych General Chief Complaint: Psychiatric Symptoms Stated Complaint: crisis, si Time Seen by Provider: 03/20/21 13:54 Source: patient Mode of arrival: ambulatory Limitations: no limitations History of Present Illness HPI Narrative: 45-year-old male with a past medical history of hypertension, anxiety disorder, depression, bipolar disorder and past use use of cocaine currently drinks alcohol occasionally every other day and smokes marijuana daily presenting to the ED with complaints of increased anxiety/ depression with SI thoughts to overdose on pills. patient reports that he was recently admitted at [facility] approximately a month ago and was discontinued from his lithium and was started on Carbamezapine and since then he has had increased depression and SI thoughts. He reports that he is currently renting a room although he has been helping his mother due to she was recently diagnosed with COVID. He also reports that his nephew name Ed Leong was also just found in his apartment after a possible overdose and he had to carry his casket due to his brother was unable to carry his own son's casket. He reports that this is when heavy on him. He denies any homicidal ideation/auditory or visual hallucinations. He reports he smokes marijuana daily otherwise he denies any other recent drug usage. Reports that he drank vodka approximately 2 days ago. MD complaint: suicidal ideation, feels depressed, anxiety and alcohol abuse Onset (ago): day(s) Duration: constant and getting worse History of same: Yes Relieving factors: none Exacerbating factors: medication, alcohol and other ( social issues) Context: recent alcohol abuse, new medication(s) and significant life stressor Associated psychiatric symptoms: depression, suicidal ideation and racing thoughts Associated symptoms: denies other symptoms Treatments prior to arrival: none If self harm: admits thoughts of self harm and has plan Related Data Home Medications Medication Instructions Recorded Confirmed propranolol 20 mg PO TID 01/29/21 03/20/21 trazodone 2 tab PO BEDTIME PRN 01/29/21 03/20/21 benztropine 0.5 mg PO BID 03/20/21 03/20/21 carbamazepine 400 mg PO BID 03/20/21 03/20/21 cholecalciferol (vitamin D3) 1 tab PO DAILY 03/20/21 03/20/21 [Vitamin D3] fluoxetine 40 mg PO DAILY 03/20/21 03/20/21 nicotine 1 patch TRANSDERMAL DAILY 03/20/21 03/20/21 olanzapine 5 mg PO BID PRN 03/20/21 03/20/21 olanzapine 10 mg PO BID 03/20/21 03/20/21 pantoprazole 20 mg PO DAILY@0630 03/20/21 03/20/21 Allergies Allergy/AdvReac Type Severity Reaction Status Date / Time duloxetine [From CYMBALTA] Allergy Unknown RASH Verified 01/12/21 18:21 SEAFOOD Allergy Unknown ANAPHYLAXIS Uncoded 08/07/20 15:05 Review of Systems Review of Systems: Constitutional : No Fever, No Chills ENT/Mouth : No Ear Pain, No Nasal Congestion, No sore throat Eyes: No Eye Pain, No Swelling, No Redness Cardiovascular : No Chest Pain, No SOB Respiratory : No Cough, No Sputum, No Dyspnea Gastrointestinal : No ingestions, No Nausea, No Vomiting, No Diarrhea, No Hematochezia, No Melena Genitourinary : No Dysuria, No Urinary Frequency, No Hematuria Musculoskeletal : No Myalgias Skin : No Skin Lesions, No rash Neuro : No Weakness, No Numbness, No Paresthesias, No Dizziness, No Headache Psych : + Anxiety, + Depression, + SI, + No thoughts of self injury, No HI, No AVH, Heme/Lymph: No Lymphadenopathy Endocrine : No Polyuria, No Polydipsia Yes all other systems are reviewed and are negative [facility] Past Medical History Attestation statement: The following information was validated with the patient. Medical History Anxiety Depression Hypertension Social History Social History Alcohol intake: current Smoking Status: Current every day smoker Use of substances other than those prescribed or required for medical reasons: Yes Substance Use Type: Marijuana Advance Directives: No Advance Directives Information Provided: Yes Physical Exam Vital Signs: Vital Signs: Last Vital Signs Temp 98.0 F 03/20/21 13:46 Pulse 72 03/20/21 13:46 Resp 20 03/20/21 16:00 BP 137/79 03/20/21 13:46 Pulse Ox 97 03/20/21 13:46 Body Mass Index 25.7 vital signs have been reviewed as normal and appeared to be correct. Blood pressure normal. Heart rate normal. Respiration rate normal. Temperature normal. Oxygen saturation normal. Appearance: Alert. Oriented X3. No acute distress. Head: Normal external exam. Normocephalic. Atraumatic. No Holder signs noted. No raccoon eyes noted Eyes: PERRLA. EOMI. Conjunctiva and sclera normal. Eyelids normal. ENT: EAC normal. TM's Normal. Pharynx normal. Uvula midline. Moist mucous membranes. No trismus noted. No drooling noted. No muffled voice noted. Neck: Normal inspection. Neck supple. FROM. No adenopathy. Thyroid Normal. No meningeal signs. No neck mass noted. CVS: Normal heart rate and rhythm. Heart sound normal. No murmurs noted. Pulses normal throughout. Respiratory: No respiratory distress. Painless inspiration. Breath sounds normal. No wheezes/rales/rhonchi noted. Chest nontender. No accessory muscle usage noted or decreased air movement noted. Abdomen: Soft and nontender. Bowel sounds normal in all 4 quadrants. No distention noted. No organomegaly noted. No visible injury noted. Back: No CVA tenderness. Full range of motion noted. Skin: Skin warm and dry. Normal skin color. Normal skin turgor. No rashes/lesions/lacerations noted. Extremities: No lower extremity edema. Extremities exhibit normal range of motion. Extremities nontender. Neuro: Oriented X 3. No motor deficit. No sensory deficit. Reflexes normal. Psych: Appearance grossly normal, well-kept, mental status normal, speech and movement normal, speech clear, patient appears very sad and anxious along with depressed. Is cooperative. Normal thought process. Normal thought content. Normal good insight. Judgment good. Course Course Course Narrative: 15:50pm - Labs reviewed and patient with mild elevation and random glucose at 116 otherwise all other labs are within normal limits. Patient negative for UTI. Drugs abuse screen is positive only for marijuana negative for all other drugs. Patient negative for EtOH. Negative for COVID. - Patient medically cleared at this time. Patient was placed in position observation at this time. Patient is placed in physician observation because th e patient needs more time to be evaluated by N for the need for psychiatric admission. At the time of the patient was started the patient's vitals remained stable within normal limits. He is alert and oriented x3. Not in any acute distress. No focal neuro deficits are noted. Lungs clear to auscultation. CV RRR. Abdomen is soft nontender. Will continue to monitor as patient is waiting [facility] evaluation. MDM - Psych MDM Narrative Medical decision making narrative: 45-year-old male with a past medical history of hypertension, anxiety disorder, depression, bipolar disorder and past use use of cocaine currently drinks alcohol occasionally every other day and smokes marijuana daily presenting to the ED with complaints of increased anxiety/ depression with SI thoughts to overdose on pills. Recent admission at [facility] and was started on Carbamezapine and discontinued on lithium. Since then has had increased depression/ SI thoughts to overdose on pills. Also social issues. - Plan: Labs, CXR, EKG for medical clearance, drugs of abuse screen, COVID swab. Provide 1 mg of Ativan every 4 hours/p.r.n. then re-evaluate. Medical Records Attestation: I reviewed the patient's medical records. Lab Data Attestation: I reviewed the patient's lab results. Result diagrams: 03/20/21 15:04 03/20/21 15:04 Labs: Lab Results 03/20/21 03/20/21 03/20/21 Range/Units 15:01 15:01 15:01 WBC (4.8-10.8) X10*3/uL RBC (4.60-5.80) X10*6/uL Hgb (14.0-18.0) g/dl Hct (42-52) % MCV (80-98) fL MCH (27.0-33.0) pg MCHC (31.0-36.0) g/dl RDW (11.0-16.0) % Plt Count (160-400) X10*3/uL MPV (9.4-12.4) fL Immature Gran % (Auto) (0.0-0.4) % Neut % (Auto) (45-73) % Lymph % (Auto) (20-40) % Dane % (Auto) (2-11) % Eos % (Auto) (0-4) % Baso % (Auto) (0-2) % Lymph # (Auto) (1.2-4.9) X10*3/uL Dane # (Auto) (0.1-1.2) X10*3/uL Eos # (Auto) (0.0-0.4) X10*3/uL Baso # (Auto) (0.0-0.2) X10*3/uL Abs Immat Gran (auto) (0.00-0.03) X10*3/uL Absolute Neuts (auto) (2.0-8.3) X10*3/uL Absolute Nucleated RBC (0.0-0.012) X10*3/uL Nucleated RBC % (auto) (0.0-0.2) /100WBC Hold Purple Top PT (10.8-13.0) SEC INR (0.9-1.1) Sodium (135-145) mmol/L Potassium (3.3-5.1) mmol/L Chloride (96-108) mmol/L Carbon Dioxide (22-29) mmol/L Anion Gap (12-20) BUN (9-16) mg/dL Creatinine (0.5-1.4) mg/dL Estim Creat Clear Calc Estimated GFR Random Glucose (60-115) mg/dL Calcium (8.4-10.2) mg/dL Magnesium (1.6-2.6) mg/dL Total Bilirubin (0.0-1.0) mg/dL Direct Bilirubin (0.0-0.5) mg/dL AST (5-37) U/L ALT (0-40) U/L Alkaline Phosphatase (39-117) U/L Total Protein (6.5-8.0) g/dL Albumin (3.5-5.0) g/dL Lipase (8-78) U/L Urine Color YELLOW Urine Appearance CLEAR Urine pH 6.5 (5.0-8.0) Ur Specific [place] 1.020 (1.005-1.025) Urine Protein NEG (NEG-TRACE) MG/DL Urine Glucose (UA) NEG (NEG) MG/DL Urine Ketones NEG (NEG) MG/DL Urine Blood NEG (NEG) Urine Nitrite NEG (NEG) Ur Leukocyte Esterase NEG (NEG) Urine Opiates Screen Not Detected (Not Detect) Ur Barbiturates Screen Not Detected (Not Detect) Ur Phencyclidine Scrn Not Detected (Not Detect) Ur Amphetamines Screen Not Detected (Not Detect) U Benzodiazepines Scrn Not Detected (Not Detect) Urine Cocaine Screen Not Detected (Not Detect) U Marijuana (THC) Screen POSITIVE H (Not Detect) Ethyl Alcohol mg/dL COVID-19 (RAF) Negative (Negative) COVID-19 Clin Com See Note 03/20/21 03/20/21 03/20/21 Range/Units 15:04 15:04 15:04 WBC 7.0 (4.8-10.8) X10*3/uL RBC 4.65 (4.60-5.80) X10*6/uL Hgb 14.2 (14.0-18.0) g/dl Hct 42.1 (42-52) % MCV 90.5 (80-98) fL MCH 30.5 (27.0-33.0) pg MCHC 33.7 (31.0-36.0) g/dl RDW 12.0 (11.0-16.0) % Plt Count 270 (160-400) X10*3/uL MPV 9.3 L (9.4-12.4) fL Immature Gran % (Auto) 0.1 (0.0-0.4) % Neut % (Auto) 52.7 (45-73) % Lymph % (Auto) 35.5 (20-40) % Dane % (Auto) 8.0 (2-11) % Eos % (Auto) 3.4 (0-4) % Baso % (Auto) 0.3 (0-2) % Lymph # (Auto) 2.5 (1.2-4.9) X10*3/uL Dane # (Auto) 0.6 (0.1-1.2) X10*3/uL Eos # (Auto) 0.2 (0.0-0.4) X10*3/uL Baso # (Auto) 0.0 (0.0-0.2) X10*3/uL Abs Immat Gran (auto) 0.01 (0.00-0.03) X10*3/uL Absolute Neuts (auto) 3.7 (2.0-8.3) X10*3/uL Absolute Nucleated RBC 0.000 (0.0-0.012) X10*3/uL Nucleated RBC % (auto) 0.0 (0.0-0.2) /100WBC Hold Purple Top SEE NOTE PT (10.8-13.0) SEC INR (0.9-1.1) Sodium (135-145) mmol/L Potassium (3.3-5.1) mmol/L Chloride (96-108) mmol/L Carbon Dioxide (22-29) mmol/L Anion Gap (12-20) BUN (9-16) mg/dL Creatinine (0.5-1.4) mg/dL Estim Creat Clear Calc Estimated GFR Random Glucose (60-115) mg/dL Calcium (8.4-10.2) mg/dL Magnesium 1.8 (1.6-2.6) mg/dL Total Bilirubin (0.0-1.0) mg/dL Direct Bilirubin (0.0-0.5) mg/dL AST (5-37) U/L ALT (0-40) U/L Alkaline Phosphatase (39-117) U/L Total Protein (6.5-8.0) g/dL Albumin (3.5-5.0) g/dL Lipase (8-78) U/L Urine Color Urine Appearance Urine pH (5.0-8.0) Ur Specific [place] (1.005-1.025) Urine Protein (NEG-TRACE) MG/DL Urine Glucose (UA) (NEG) MG/DL Urine Ketones (NEG) MG/DL Urine Blood (NEG) Urine Nitrite (NEG) Ur Leukocyte Esterase (NEG) Urine Opiates Screen (Not Detect) Ur Barbiturates Screen (Not Detect) Ur Phencyclidine Scrn (Not Detect) Ur Amphetamines Screen (Not Detect) U Benzodiazepines Scrn (Not Detect) Urine Cocaine Screen (Not Detect) U Marijuana (THC) Screen (Not Detect) Ethyl Alcohol mg/dL COVID-19 (RAF) (Negative) COVID-19 Clin Com 03/20/21 03/20/21 03/20/21 Range/Units 15:04 15:04 15:04 WBC (4.8-10.8) X10*3/uL RBC (4.60-5.80) X10*6/uL Hgb (14.0-18.0) g/dl Hct (42-52) % MCV (80-98) fL MCH (27.0-33.0) pg MCHC (31.0-36.0) g/dl RDW (11.0-16.0) % Plt Count (160-400) X10*3/uL MPV (9.4-12.4) fL Immature Gran % (Auto) (0.0-0.4) % Neut % (Auto) (45-73) % Lymph % (Auto) (20-40) % Dane % (Auto) (2-11) % Eos % (Auto) (0-4) % Baso % (Auto) (0-2) % Lymph # (Auto) (1.2-4.9) X10*3/uL Dane # (Auto) (0.1-1.2) X10*3/uL Eos # (Auto) (0.0-0.4) X10*3/uL Baso # (Auto) (0.0-0.2) X10*3/uL Abs Immat Gran (auto) (0.00-0.03) X10*3/uL Absolute Neuts (auto) (2.0-8.3) X10*3/uL Absolute Nucleated RBC (0.0-0.012) X10*3/uL Nucleated RBC % (auto) (0.0-0.2) /100WBC Hold Purple Top PT 13.1 H (10.8-13.0) SEC INR 1.1 (0.9-1.1) Sodium 140 (135-145) mmol/L Potassium 4.6 (3.3-5.1) mmol/L Chloride 104 (96-108) mmol/L Carbon Dioxide 30 H (22-29) mmol/L Anion Gap 11 L (12-20) BUN 16 (9-16) mg/dL Creatinine 0.88 (0.5-1.4) mg/dL Estim Creat Clear Calc 112.9 Estimated GFR > 60 Random Glucose 116 H (60-115) mg/dL Calcium 9.5 D (8.4-10.2) mg/dL Magnesium (1.6-2.6) mg/dL Total Bilirubin 0.4 (0.0-1.0) mg/dL Direct Bilirubin 0.2 (0.0-0.5) mg/dL AST 13 (5-37) U/L ALT 14 (0-40) U/L Alkaline Phosphatase 96 (39-117) U/L Total Protein 7.0 (6.5-8.0) g/dL Albumin 4.0 (3.5-5.0) g/dL Lipase 16 (8-78) U/L Urine Color Urine Appearance Urine pH (5.0-8.0) Ur Specific [place] (1.005-1.025) Urine Protein (NEG-TRACE) MG/DL Urine Glucose (UA) (NEG) MG/DL Urine Ketones (NEG) MG/DL Urine Blood (NEG) Urine Nitrite (NEG) Ur Leukocyte Esterase (NEG) Urine Opiates Screen (Not Detect) Ur Barbiturates Screen (Not Detect) Ur Phencyclidine Scrn (Not Detect) Ur Amphetamines Screen (Not Detect) U Benzodiazepines Scrn (Not Detect) Urine Cocaine Screen (Not Detect) U Marijuana (THC) Screen (Not Detect) Ethyl Alcohol < 10 mg/dL COVID-19 (RAF) (Negative) COVID-19 Clin Com Discharge Plan Discharge Clinical Impression: Anxiety, Depression, Suicidal ideation Prescriptions: No Action benztropine 0.5 mg tablet 0.5 mg PO BID RF: 0 olanzapine 5 mg tablet 5 mg PO BID PRN (Reason: Agitation) RF: 0 olanzapine 10 mg tablet 10 mg PO BID RF: 0 pantoprazole 20 mg tablet,delayed release (DR/EC) 20 mg PO DAILY@0630 RF: 0 cholecalciferol (vitamin D3) [Vitamin D3] 10 mcg (400 unit) tablet 1 tab PO DAILY RF: 0 carbamazepine 400 mg Tablet Extended Release 12 Hr 400 mg PO BID RF: 0 fluoxetine 40 mg Capsule 40 mg PO DAILY RF: 0 nicotine 21 mg/24 hr Patch 24 Hour 1 patch TRANSDERMAL DAILY RF: 0 trazodone 100 mg tablet 2 tab PO BEDTIME PRN (Reason: Anxiety) RF: 0 propranolol 20 mg tablet 20 mg PO TID RF: 0
--- NOTE | 2021-03-20 17:10 | PC.NURSE ---
Pt resting, resp unlabored.
--- NOTE | 2021-03-20 18:02 | PC.NURSE ---
Pt ate dinner, up briefly to use the telephone.
--- NOTE | 2021-03-20 19:16 | PC.NURSE ---
Report received. PT is sleeping in bed. Respirations even and unlabored. PT is waiting to be seen.
--- NOTE | 2021-03-20 19:55 | PC.NURSE ---
Zoya faxed and called.
--- NOTE | 2021-03-20 21:37 | PC.NURSE ---
[facility]N at bed side.
[2021-03-20] MEDS: Propranolol HCL 20 MG TABLET PO (21:53)
[2021-03-20] MEDS: Benztropine Mesylate 0.5 MG TABLET PO (21:54)
[2021-03-20] MEDS: OLANZapine 10 MG TABLET PO (21:54)
[2021-03-20] MEDS: carBAMazepine ER 200 MG TAB.ER.12H 400 MG PO (21:55)
[2021-03-20] MEDS: traZODone HCL 100 MG TABLET 200 MG PO (22:03)
[2021-03-21 06:00] VITALS: BP 102/63; PULSE 54; RESP 18; TEMP 36.7; O2SAT 98
--- NOTE | 2021-03-21 07:11 | PC.NURSE ---
report received from night RN, patient remains asleep at present, patient presents with even unlabored respirations patient has inpatient bed search
[2021-03-21] MEDS: Nicotine 21 MG PATCH.TD24 TRANSDERMA (09:12)
[2021-03-21] MEDS: carBAMazepine ER 200 MG TAB.ER.12H 400 MG PO ×2 (09:13→21:06)
[2021-03-21] MEDS: Cholecalciferol (Vitamin D3) 10 MCG TABLET PO (09:13)
[2021-03-21] MEDS: OLANZapine 10 MG TABLET PO ×2 (09:14→21:05)
[2021-03-21] MEDS: FLUoxetine HCl 20 MG CAPSULE 40 MG PO (09:15)
[2021-03-21] MEDS: Benztropine Mesylate 0.5 MG TABLET PO ×2 (09:15→21:06)
[2021-03-21] MEDS: Omeprazole 20 MG CAPSULE.DR PO (09:16)
[2021-03-21 09:20] VITALS: BP 135/70; PULSE 49; RESP 14; TEMP 36.6; O2SAT 100
[2021-03-21] MEDS: LORazepam 1 MG TABLET PO ×2 (09:23→17:44)
[2021-03-21 09:48] VITALS: PULSE 49
[2021-03-21 15:10] VITALS: BP 139/73; PULSE 53; RESP 14; TEMP 36.8; O2SAT 98
[2021-03-21 15:14] VITALS: PULSE 53
--- NOTE | 2021-03-21 19:03 | PC.NURSE ---
Report received. PT is sleeping in bed. Respirations even and unlabored. PT is inpatient bed search.
[2021-03-21] MEDS: traZODone HCL 100 MG TABLET 200 MG PO (21:05)
[2021-03-21 21:11] VITALS: BP 138/89; PULSE 51
[2021-03-22] VITALS (7 sets, daily range): BP systolic 117–142; BP diastolic 73–87; PULSE 44–64; RESP 16–20; TEMP 36.3–36.8; O2SAT 96–99
--- NOTE | 2021-03-22 06:58 | PC.NURSE ---
report received from previous shift nurse, patient appears to be sleeping with even unlabored breaths. patient appears in no distress.
[2021-03-22] MEDS: carBAMazepine ER 200 MG TAB.ER.12H 400 MG PO ×2 (08:38→20:55)
[2021-03-22] MEDS: OLANZapine 10 MG TABLET PO ×2 (08:38→20:55)
[2021-03-22] MEDS: Cholecalciferol (Vitamin D3) 10 MCG TABLET PO (08:38)
[2021-03-22] MEDS: FLUoxetine HCl 20 MG CAPSULE 40 MG PO (08:38)
[2021-03-22] MEDS: Omeprazole 20 MG CAPSULE.DR PO (08:38)
[2021-03-22] MEDS: Benztropine Mesylate 0.5 MG TABLET PO ×2 (08:38→20:55)
[2021-03-22] MEDS: Nicotine 21 MG PATCH.TD24 TRANSDERMA (08:39)
[2021-03-22] MEDS: LORazepam 1 MG TABLET PO ×2 (08:47→18:05)
[2021-03-22] MEDS: Propranolol HCL 20 MG TABLET PO ×2 (16:13→20:55)
--- NOTE | 2021-03-22 19:07 | PC.NURSE ---
Report received. PT is using the bathroom. Calm and cooperative. PT is inpatient bed search.
[2021-03-22] MEDS: traZODone HCL 100 MG TABLET 200 MG PO (20:54)
[2021-03-23] VITALS (8 sets, daily range): BP systolic 112–150; BP diastolic 64–93; PULSE 58–65; RESP 17–20; TEMP 36.4–36.9; O2SAT 96–99
--- NOTE | 2021-03-23 07:15 | PC.NURSE ---
Report received from JOHN Sorenson. Pt awake, affect even, resp unlabored, eating breakfast. No concerns reported.
[2021-03-23] MEDS: Omeprazole 20 MG CAPSULE.DR PO (08:07)
[2021-03-23] MEDS: carBAMazepine ER 200 MG TAB.ER.12H 400 MG PO ×2 (08:47→20:46)
[2021-03-23] MEDS: Cholecalciferol (Vitamin D3) 10 MCG TABLET PO (08:47)
[2021-03-23] MEDS: FLUoxetine HCl 20 MG CAPSULE 40 MG PO (08:47)
[2021-03-23] MEDS: Nicotine 21 MG PATCH.TD24 TRANSDERMA (08:48)
[2021-03-23] MEDS: Benztropine Mesylate 0.5 MG TABLET PO ×2 (08:48→20:46)
[2021-03-23] MEDS: OLANZapine 10 MG TABLET PO ×2 (08:48→20:46)
--- NOTE | 2021-03-23 10:30 | PC.NURSE ---
Pt resting in room, reported wishing to go to [facility] today. Pt aware that bed search is ongoing, will update as information arrives.
[2021-03-23] MEDS: LORazepam 1 MG TABLET PO ×2 (10:44→20:46)
--- NOTE | 2021-03-23 14:36 | PC.NURSE ---
Pt resting, resp unlabored
[2021-03-23] MEDS: Propranolol HCL 20 MG TABLET PO ×2 (15:01→20:48)
--- NOTE | 2021-03-23 18:22 | PC.NURSE ---
Pt ate dinner, currently resting in room, no concerns reported.
[2021-03-23] MEDS: traZODone HCL 100 MG TABLET 200 MG PO (20:46)
--- NOTE | 2021-03-23 21:15 | PC.NURSE ---
Patient calm and quiet, denied distress at this time, compliant with HS PO medication, VSS, will continue to monitor.
[2021-03-24 04:22] VITALS: BP 108/62; PULSE 55; RESP 17; TEMP 36.6; O2SAT 95
[2021-03-24] MEDS: LORazepam 1 MG TABLET PO ×2 (05:40→17:50)
[2021-03-24] MEDS: Omeprazole 20 MG CAPSULE.DR PO (05:40)
--- NOTE | 2021-03-24 07:30 | PC.NURSE ---
PATIENT AWAKE. ASKED STAFF TO SHOWER. CALM AND COOPERATIVE AT THIS TIME.
[2021-03-24 08:30] VITALS: BP 145/95; PULSE 66; RESP 16; TEMP 36.4; O2SAT 98
[2021-03-24] MEDS: Nicotine 21 MG PATCH.TD24 TRANSDERMA (08:39)
[2021-03-24] MEDS: Cholecalciferol (Vitamin D3) 10 MCG TABLET PO (08:40)
[2021-03-24] MEDS: carBAMazepine ER 200 MG TAB.ER.12H 400 MG PO ×2 (08:40→20:45)
[2021-03-24] MEDS: Propranolol HCL 20 MG TABLET PO ×3 (08:40→20:46)
[2021-03-24] MEDS: FLUoxetine HCl 20 MG CAPSULE 40 MG PO (08:40)
[2021-03-24] MEDS: Benztropine Mesylate 0.5 MG TABLET PO ×2 (08:40→20:45)
[2021-03-24] MEDS: OLANZapine 10 MG TABLET PO ×2 (08:40→20:46)
[2021-03-24 16:30] VITALS: BP 139/94; PULSE 70; RESP 16; TEMP 36.6; O2SAT 96
[2021-03-24 16:33] VITALS: BP 139/94; PULSE 70
--- NOTE | 2021-03-24 17:29 | PC.NURSE ---
Addendum entered by Marissa Han 03/24/21 17:57: ELECT[employer]CH[employer] INSPECTOR in to speak with patient regarding DC plan. pt on section 12, has to go to bed at [facility]. patient not happy about decision. medicated with PO ativan. transport to be set up for midnight tonight per n. will pass on number for nurse to nurse to oncoming RN, to be done at 1130pm tonight. Original Note: pt came to RN at nurses station. patient expressing concern because another patient told him that [facility] facility he may be dc too is like a intermediate and has a lot of fights . patient concerned about this because he wants to be sure he goes to a facility that helps him get better and feels he will have to be aggressive in that type of environment. called to [facility] and informed them of patients concerns and possible unsafe dc for patient. [facility] stated they would relay information to supervisor [employer] and get back to rn. patient does not have definite plan for dc as of this time.
[2021-03-24 20:46] VITALS: BP 154/93; PULSE 68
== END 2021-03-24 23:13 | disposition short-term general hospital (02) ==
PROVIDERS: Physician Assistant Medical; Emergency Provider Emergency Medicine
DX: F32.9 Major depressive disorder, single episode, unspecified (principal); R45.851 Suicidal ideations; F41.9 Anxiety disorder, unspecified; F10.10 Alcohol abuse, uncomplicated; Y90.0 Blood alcohol level of less than 20 mg/100 ml; F12.90 Cannabis use, unspecified, uncomplicated; F17.200 Nicotine dependence, unspecified, uncomplicated; I10 Essential (primary) hypertension; Z20.822 Contact with and (suspected) exposure to COVID-19; Z72.89 Other problems related to lifestyle; Z63.4 Disappearance and death of family member
CPT/HCPCS: 36415; 80053; 80076; 80307; 80320; 81003; 82248; 83690; 83735; 85025; 85610; 87635; 93005; 99285

== ENCOUNTER 2021-06-29 11:58 | Emergency (ER) | payer OTHER, SELFPAY ==
--- NOTE | 2021-06-29 12:29 | PC.NURSE ---
Pt called from waiting room again at this time. No response.
== END 2021-06-29 13:20 | disposition left against medical advice (07) ==
PROVIDERS: Emergency Provider Emergency Medicine
DX: Z91.14 Patient's other noncompliance with medication regimen (principal)

== ENCOUNTER 2021-06-29 14:48 | Emergency (ER) | payer OTHER, SELFPAY | END 2021-06-29 16:25 | disposition left against medical advice (07) | PROVIDERS: Emergency Provider Emergency Medicine | DX: Z04.9 Encounter for examination and observation for unspecified reason (principal) ==

== ENCOUNTER 2021-07-06 01:53 | Emergency (ER) | payer OTHER, SELFPAY ==
[2021-07-06 02:27] VITALS: BP 153/95; PULSE 82; RESP 18; TEMP 36.7; O2SAT 99; BMI 25.7
--- NOTE | 2021-07-06 03:28 | ED_ITS ---
HPI - General Adult General Chief complaint: General Medical Stated complaint: swollen hand and foot Time Seen by Provider: 07/06/21 03:28 Source: patient Mode of arrival: ambulatory History of Present Illness HPI narrative: 45-year-old male presents with complaints of hand and foot swelling/pain without associated fever, chills and states that he has been walking ?quite a bit today? and denies any shortness of breath/chest pain/palpitations. 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 Patient states he has received the [facility] COVID-19 vaccine. Related Data Home Medications Medication Instructions Recorded Confirmed propranolol 20 mg tablet 20 mg PO TID 01/29/21 03/20/21 trazodone 100 mg tablet 2 tab PO BEDTIME PRN 01/29/21 03/20/21 benztropine 0.5 mg tablet 0.5 mg PO BID 03/20/21 03/20/21 carbamazepine 400 mg 400 mg PO BID 03/20/21 03/20/21 tablet,extended release,12 hr cholecalciferol (vitamin D3) 10 1 tab PO DAILY 03/20/21 03/20/21 mcg (400 unit) tablet (Vitamin D3) fluoxetine 40 mg capsule 40 mg PO DAILY 03/20/21 03/20/21 nicotine 21 mg/24 hr daily 1 patch TRANSDERMAL DAILY 03/20/21 03/20/21 transdermal patch olanzapine 10 mg tablet 10 mg PO BID 03/20/21 03/20/21 olanzapine 5 mg tablet 5 mg PO BID PRN 03/20/21 03/20/21 pantoprazole 20 mg tablet,delayed 20 mg PO DAILY@0630 03/20/21 03/20/21 release Allergies Allergy/AdvReac Type Severity Reaction Status Date / Time duloxetine [From CYMBALTA] Allergy Unknown RASH Verified 01/12/21 18:21 SEAFOOD Allergy Unknown ANAPHYLAXIS Uncoded 08/07/20 15:05 Review of Systems Review of Systems: Pertinent positives and negatives as stated in HPI 10 point review of systems is otherwise negative. [facility] Past Medical History Source: nursing notes reviewed Medical History Anxiety Depression Hypertension Social History Social History Alcohol intake: current Substance Use Type: Marijuana Advance Directives: No Advance Directives Information Provided: Yes Physical Exam Vital Signs: Vital Signs: Last Vital Signs Temp 98.0 F 07/06/21 02:27 Pulse 82 07/06/21 02:27 Resp 18 07/06/21 02:27 BP 153/95 H 07/06/21 02:27 Pulse Ox 99 07/06/21 02:27 Body Mass Index 25.7 VITAL SIGNS: Reviewed. GENERAL: Well developed, well nourished, in no acute distress. HEAD: Normocephalic/atraumatic EYES: PERRLA, EOMI LUNGS: Normal breath sounds. SpO2<99> CARDIOVASCULAR: Regular rate and rhythm without noted murmurs ABDOMEN: Soft, non-tender, non-distended with bowel sounds. MUSCULOSKELETAL: No tenderness, deformities, or effusions noted on gross inspection. EXTREMITIES: No cyanosis, clubbing or edema, bilateral feet without swelling/erythema and symmetrical bilateral-palpable DP/PT with sensation intact and capillary refill less than 3 seconds, no deformities noted SKIN: Inspection of the skin reveals no rashes NEUROLOGIC: Alert and oriented x 4. Strength and sensation to light touch were grossly intact x 4. Course Course Course Narrative: 45-year-old male with history and clinical presentation consistent with arthritis type pain without evidence of infection, trauma. Patient was provided with combination analgesics and on re-evaluation was noted to be asymptomatic and was discharged in stable condition. All prior records were reviewed and although lab work was most recently completed 03/20 there is no evidence of underlying electrolyte/protein dysfunction. Discharge Plan Discharge Clinical Impression: Hand and foot pain, Arthritis Patient Disposition: Home, Self-Care Instructions: Arthritis (ED) Additional Instructions: 1. Tylenol 1000 mg, orally, every 6 hours as needed for pain control. Do not exceed 4000 mg within 24 hours. 2. Ibuprofen 400 mg, orally with milk or food, every 6 hours as needed for pain control. Return to the ER for acute worsening of your symptoms. Prescriptions: No Action benztropine 0.5 mg tablet 0.5 mg PO BID RF: 0 olanzapine 5 mg tablet 5 mg PO BID PRN (Reason: Agitation) RF: 0 olanzapine 10 mg tablet 10 mg PO BID RF: 0 pantoprazole 20 mg tablet,delayed release (DR/EC) 20 mg PO DAILY@0630 RF: 0 cholecalciferol (vitamin D3) [Vitamin D3] 10 mcg (400 unit) tablet 1 tab PO DAILY RF: 0 carbamazepine 400 mg Tablet Extended Release 12 Hr 400 mg PO BID RF: 0 fluoxetine 40 mg Capsule 40 mg PO DAILY RF: 0 nicotine 21 mg/24 hr Patch 24 Hour 1 patch TRANSDERMAL DAILY RF: 0 trazodone 100 mg tablet 2 tab PO BEDTIME PRN (Reason: Anxiety) RF: 0 propranolol 20 mg tablet 20 mg PO TID RF: 0 Referrals: [facility] [Primary Care Provider] - 2 days
[2021-07-06] MEDS: Acetaminophen 325 MG TABLET 975 MG PO (03:29)
[2021-07-06] MEDS: Ibuprofen 400 MG TABLET PO (03:29)
== END 2021-07-06 03:46 | disposition home or self-care (01) ==
PROVIDERS: Emergency Provider Student in an Organized Health Care Education/Training Program
DX: M19.072 Primary osteoarthritis, left ankle and foot (principal); M19.071 Primary osteoarthritis, right ankle and foot; M19.042 Primary osteoarthritis, left hand; M19.041 Primary osteoarthritis, right hand; M79.642 Pain in left hand; M79.641 Pain in right hand; M79.672 Pain in left foot; M79.671 Pain in right foot; I10 Essential (primary) hypertension; F41.9 Anxiety disorder, unspecified; F12.90 Cannabis use, unspecified, uncomplicated; Z79.899 Other long term (current) drug therapy
CPT/HCPCS: 99283

== ENCOUNTER 2021-07-08 02:17 | Emergency (ER) | payer OTHER, SELFPAY ==
[2021-07-08 02:23] VITALS: BP 138/94; PULSE 63; O2SAT 98
== END 2021-07-08 03:34 | disposition left against medical advice (07) ==
LOC: HO.ED 03:33
PROVIDERS: Emergency Provider Emergency Medicine
DX: M79.673 Pain in unspecified foot (principal)

== ENCOUNTER 2021-07-16 00:25 | Emergency (ER) | payer OTHER, SELFPAY ==
[2021-07-16 00:48] VITALS: BP 132/77; PULSE 80; RESP 18; TEMP 36.6; O2SAT 99; BMI 27.8
--- NOTE | 2021-07-16 01:16 | ED.GENADULT ---
HPI - General Adult General Chief complaint: General Medical Stated complaint: refill meds Time Seen by Provider: 07/16/21 01:00 Source: patient Mode of arrival: EMS Limitations: no limitations History of Present Illness HPI narrative: Patient is a 45-year-old male with a past medical history of insomnia disorder, bipolar disorder, HTN, depression anxiety and cocaine use disorder was brought in by ambulance for refills on his bipolar medication per EMS. The patient states he would like a 90 day prescription for trazodone because it helps him sleep. He states he is unable to go to his primary care doctor because he is homeless however he does state he can sleep at his mother's house. He states he did see a doctor at [facility] for a while but he has not seen him lately so he ran out of his medication. He states he would also need a refill on his bipolar meds. Related Data Home Medications Medication Instructions Recorded Confirmed propranolol 20 mg tablet 20 mg PO TID 01/29/21 03/20/21 trazodone 100 mg tablet 2 tab PO BEDTIME PRN 01/29/21 03/20/21 benztropine 0.5 mg tablet 0.5 mg PO BID 03/20/21 03/20/21 carbamazepine 400 mg 400 mg PO BID 03/20/21 03/20/21 tablet,extended release,12 hr cholecalciferol (vitamin D3) 10 1 tab PO DAILY 03/20/21 03/20/21 mcg (400 unit) tablet (Vitamin D3) fluoxetine 40 mg capsule 40 mg PO DAILY 03/20/21 03/20/21 nicotine 21 mg/24 hr daily 1 patch TRANSDERMAL DAILY 03/20/21 03/20/21 transdermal patch olanzapine 10 mg tablet 10 mg PO BID 03/20/21 03/20/21 olanzapine 5 mg tablet 5 mg PO BID PRN 03/20/21 03/20/21 pantoprazole 20 mg tablet,delayed 20 mg PO DAILY@0630 03/20/21 03/20/21 release Previous Rx's Medication Instructions Recorded carbamazepine 200 mg tablet 400 mg PO DAILY #14 tab 07/16/21 trazodone 100 mg tablet 100 mg PO BEDTIME PRN #7 tab 07/16/21 Allergies Allergy/AdvReac Type Severity Reaction Status Date / Time duloxetine [From CYMBALTA] Allergy Unknown RASH Verified 01/12/21 18:21 SEAFOOD Allergy Unknown ANAPHYLAXIS Uncoded 08/07/20 15:05 Review of Systems Review of Systems: Yes all other systems are reviewed and are negative [facility] Past Medical History Medical History Anxiety Depression Hypertension Social History Social History Alcohol intake: current Substance Use Type: Marijuana Physical Exam Vital Signs: Vital Signs: Last Vital Signs Temp 98 F 07/16/21 00:48 Pulse 80 07/16/21 00:48 Resp 18 07/16/21 00:48 BP 132/77 07/16/21 00:48 Pulse Ox 99 07/16/21 00:48 Body Mass Index 27.8 Const: Other: Patient was sleeping upon my arrival for the physical exam, woke up easily. General: cooperative, healthy appearing, comfortable, no acute distress and well developed Nutritional Appearance: average body habitus Orientation/consciousness: patient oriented x3 Limitations: no limitations HENMT: Head: Yes normal to inspection Eyes: General: appearance normal, both eyes and all related structures Neck: Neck: Yes normal visual inspection and Yes full ROM Resp: Effort & Inspection: normal respiratory effort and able to speak in complete sentences Skin: General skin exam: no rashes or lesions noted Neuro: General: patient oriented x3 Extrem: General: Yes normal to inspection Psych: Appearance: grossly normal and well kempt Speech and movement: Normal speech and movement present Affect: normal affect Attitude: cooperative Thought process: Normal thought process present Thought content: suicidality, no homicidality, no hallucinations and No Depressive thoughts present Insight: Good insight present (Psych) Judgement: Good judgement present (Psych) Course Course Course Narrative: Smashed fat only shows to prescriptions for lorazepam, both short-term courses. Records indicate patient went to [facility] and was given a 7 day prescription for trazodone. I explained this to patient and explained that I can give him the same but this would be the 1 and only time we were able to do this for him and that he needs to follow up with his primary care doctor for further prescriptions of this medication. I also told him I would be happy to refill his carbamazepine. Both prescription sent to pharmacy. Discharge Plan Discharge Clinical Impression: Insomnia disorder Qualifiers: Insomnia type: unspecified Qualified Code(s): G47.00 - Insomnia, unspecified Bipolar disorder, now depressed Qualifiers: Current episode severity: unspecified Qualified Code(s): F31.30 - Bipolar disorder, current episode depressed, mild or moderate severity, unspecified Patient Disposition: Home, Self-Care Additional Instructions: As discussed, it is imperative he follow-up with your primary care doctor to get your chronic medications refilled. As a courtesy, I am refilling your trazodone for you for 1 week, we are unable to keep refilling this medication for you. Only your primary care doctor should be filling this medication for you. I have also refilled your bipolar medication for you for 2 weeks, please see her primary care doctor about future refills on this as well. Prescriptions: New carbamazepine 200 mg tablet 400 mg PO DAILY Qty: 14 RF: 0 trazodone 100 mg tablet 100 mg PO BEDTIME PRN (Reason: insomnia) Qty: 7 RF: 0 No Action benztropine 0.5 mg tablet 0.5 mg PO BID RF: 0 olanzapine 5 mg tablet 5 mg PO BID PRN (Reason: Agitation) RF: 0 olanzapine 10 mg tablet 10 mg PO BID RF: 0 pantoprazole 20 mg tablet,delayed release (DR/EC) 20 mg PO DAILY@0630 RF: 0 cholecalciferol (vitamin D3) [Vitamin D3] 10 mcg (400 unit) tablet 1 tab PO DAILY RF: 0 carbamazepine 400 mg Tablet Extended Release 12 Hr 400 mg PO BID RF: 0 fluoxetine 40 mg Capsule 40 mg PO DAILY RF: 0 nicotine 21 mg/24 hr Patch 24 Hour 1 patch TRANSDERMAL DAILY RF: 0 trazodone 100 mg tablet 2 tab PO BEDTIME PRN (Reason: Anxiety) RF: 0 propranolol 20 mg tablet 20 mg PO TID RF: 0 Referrals: Clement Dorsey MD [Physician] - 2 days (Patient needs appointment so he can get refills for his medications)
== END 2021-07-16 01:57 | disposition home or self-care (01) ==
PROVIDERS: Emergency Provider Student in an Organized Health Care Education/Training Program
DX: G47.00 Insomnia, unspecified (principal); F31.30 Bipolar disorder, current episode depressed, mild or moderate severity, unspecified; I10 Essential (primary) hypertension; F14.20 Cocaine dependence, uncomplicated
CPT/HCPCS: 99282; 99283; 99284

== ENCOUNTER 2022-01-26 12:04 | Outpatient (REF) | payer OTHER, SELFPAY ==
[2022-01-26 12:56] LABS: Lithium 0.99 mmol/L (0.60-1.20)
[2022-01-26 13:06] LABS: Alanine Aminotransferase 28 U/L (0-40); Albumin Level 4.4 g/dL (3.5-5.0); Alkaline Phosphatase 83 U/L (39-117); Anion Gap 8 (12-20); Aspartate Amino Transferase 18 U/L (5-37); Blood Urea Nitrogen 16 mg/dL (9-16); Calcium 10.4 mg/dL (8.4-10.2); Carbon Dioxide 28 mmol/L (22-29); Chloride 108 mmol/L (96-108); Estimated Glomerular Filt Rate > 60; Glucose Fasting 105 mg/dL (60-99); Potassium 4.9 mmol/L (3.3-5.1); Sodium 139 mmol/L (135-145); Total Protein 7.6 g/dL (6.5-8.0)
[2022-01-26 13:26] LABS: Vitamin D 25-OH Total 26.8 ng/mL (>30)
== END 2022-01-26 12:05 | disposition home or self-care (01) ==
LOC: HO.LAB 12:04
PROVIDERS: Visit Provider Nurse Practitioner Psychiatric/Mental Health
DX: F31.9 Bipolar disorder, unspecified (principal); Z79.899 Other long term (current) drug therapy
CPT/HCPCS: 36415; 80053; 80178; 82306

== ENCOUNTER 2022-03-17 11:14 | Outpatient (REF) | payer OTHER, SELFPAY ==
[2022-03-17 13:40] LABS: Lithium 0.79 mmol/L (0.60-1.20)
== END 2022-03-17 11:15 | disposition home or self-care (01) ==
LOC: HO.LAB 11:14
PROVIDERS: Visit Provider Nurse Practitioner Psychiatric/Mental Health
DX: Z51.81 Encounter for therapeutic drug level monitoring (principal); Z79.899 Other long term (current) drug therapy
CPT/HCPCS: 36415; 80178

== ENCOUNTER 2023-10-27 08:06 | Emergency (ER) | payer MEDICARE, MEDICAID, SELFPAY ==
--- NOTE | ~2023-10-27 | XR_ITS ---
EXAMINATION: XR SHOULDER, RIGHT CLINICAL INFORMATION: Right shoulder pain. COMPARISON: 07/14/2019 TECHNIQUE: AP external rotation, Grashey, scapular Y views of the right shoulder. FINDINGS: Glenohumeral alignment is anatomic with normal joint space. Hypertrophic changes of the acromioclavicular joint. The acromioclavicular joint space measures up to 5 mm. No displaced fracture or dislocation. No abnormal soft tissue calcifications. XR/XR shoulder RT min 2V IMPRESSION: No acute abnormality.
--- NOTE | ~2023-10-27 | XR_ITS ---
EXAMINATION: XR LUMBOSACRAL SPINE CLINICAL INFORMATION: Low back pain. COMPARISON: None available. TECHNIQUE: Three views of the lumbosacral spine. FINDINGS: There are 5 nonrib-bearing lumbar vertebral bodies. 2 mm retrolisthesis of L5 on S1. Vertebral body heights and intervertebral disc spaces are maintained. There are syndesmophytes at T12-L1 and at L3-L4. Facet hypertrophy at L5-S1. Sacroiliac joints are intact. XR/XR lumbar spine 2-3V IMPRESSION: Facet osteoarthritis at L5-S1.
[2023-10-27 08:17] VITALS: BP 142/86; PULSE 88; RESP 16; TEMP 36.5; O2SAT 99; BMI 30.7
--- NOTE | 2023-10-27 09:23 | ED_ITS ---
HPI - Extremity Problem General Chief complaint: Extremity Injury, Upper Stated complaint: Right shoulder injury Time Seen by Provider: 10/27/23 09:23 Source: patient, RN notes reviewed and old records reviewed Mode of arrival: ambulatory History of Present Illness HPI Narrative: 48-year-old male with past medical history of hypertension, anxiety, depression, presenting to the ED complaining of right shoulder and right-sided low back pain s/p mechanical slip and fall on wet floor 3 months ago. Patient states he was incarcerated and slipped and fell on wet/waxed floor landing on head/shoulder. States was briefly evaluated after incident. Reports decreased shoulder ROM secondary to pain. Denies numbness, tingling, weakness, urinary incontinence/retention, fever, abdominal pain, more recent injury/trauma or fall. MD Complaint: extremity pain Related Data Home Medications Medication Instructions Recorded Confirmed propranolol 20 mg tablet 20 mg PO TID 01/29/21 03/20/21 trazodone 100 mg tablet 2 tab PO BEDTIME PRN Anxiety 01/29/21 03/20/21 benztropine 0.5 mg tablet 0.5 mg PO BID 03/20/21 03/20/21 carbamazepine 400 mg 400 mg PO BID 03/20/21 03/20/21 tablet,extended release,12 hr cholecalciferol (vitamin D3) 10 1 tab PO DAILY 03/20/21 03/20/21 mcg (400 unit) tablet (Vitamin D3) fluoxetine 40 mg capsule 40 mg PO DAILY 03/20/21 03/20/21 nicotine 21 mg/24 hr daily 1 patch transdermal DAILY 03/20/21 03/20/21 transdermal patch olanzapine 10 mg tablet 10 mg PO BID 03/20/21 03/20/21 olanzapine 5 mg tablet 5 mg PO BID PRN Agitation 03/20/21 03/20/21 pantoprazole 20 mg tablet,delayed 20 mg PO DAILY@0630 03/20/21 03/20/21 release Previous Rx's Medication Instructions Recorded carbamazepine 200 mg tablet 400 mg (2 x 200 mg) PO DAILY #14 07/16/21 tabs trazodone 100 mg tablet 100 mg PO BEDTIME PRN insomnia #7 07/16/21 tabs acetaminophen 500 mg tablet 500 mg PO Q6H PRN fever or pain 10/27/23 (Tylenol Extra Strength) #14 tabs cyclobenzaprine 5 mg tablet 5 mg PO Q8H PRN pain (scale score 10/27/23 7-10) 5 days #14 tabs lidocaine 5 % topical patch 1 patch topical DAILY PRN pain #30 10/27/23 (Lidoderm) ea naproxen 500 mg tablet 500 mg PO BID PRN pain 10 days #20 10/27/23 tabs Allergies Allergy/AdvReac Type Severity Reaction Status Date / Time duloxetine [From CYMBALTA] Allergy Unknown RASH Verified 10/27/23 08:20 shrimp Allergy Anaphylaxis Verified 10/27/23 08:20 Review of Systems Review of Systems: Constitutional: No Fever, No Chills ENT/Mouth: No Ear Pain, No Nasal Congestion, No sore throat, No Rhinorrhea, No Swallowing Difficulty Cardiovascular: No Chest Pain, No SOB Respiratory: No Cough Gastrointestinal: No Nausea, No Vomiting, No Abdominal pain Genitourinary: No Dysuria, No Urinary Frequency, No Hematuria, No Urinary Incontinence/retention, No Flank Pain Musculoskeletal: +joint pain, No Myalgias, No Joint Swelling Skin: No Skin Lesions, No rash Neuro: No Weakness, No Numbness, No Paresthesias Yes all other systems are reviewed and are negative Constitutional: Constitutional: Reports as per HPI Neurologic: Denies Sensory deficit (Neuro) [facility] Past Medical History Attestation statement: The following information was validated with the patient. Source: old records reviewed Medical History Hypertension Anxiety Depression Social History Social History Alcohol intake: current Comment: sleeping Substance Use Type: Marijuana Advance Directives: No Physical Exam Vital Signs: Vital Signs: Last Vital Signs Temp 97.7 F 10/27/23 08:17 Pulse 88 10/27/23 08:17 Resp 16 10/27/23 08:17 BP 142/86 H 10/27/23 08:17 Pulse Ox 99 10/27/23 08:17 O2 Del Method Room Air 10/27/23 08:17 BMI result Body Mass Index 30.7 Const: General: cooperative, healthy appearing and no acute distress Orientation/consciousness: patient oriented x3 Limitations: no limitations HEENT: Head: Yes normal to inspection and Yes atraumatic Ears: hearing grossly normal bilaterally General nose exam: Normal external nose present Face and sinus: Yes normal facial exam Eyes: General: appearance normal, both eyes and all related structures EOM: EOMs intact bilaterally Neck: Neck: Yes normal visual inspection and Yes no meningeal signs Resp: Effort & Inspection: normal respiratory effort and no respiratory distress Auscultation: clear to auscultation bilaterally Cardio: Rate: regular rate Heart sounds: S1 normal heart sound present and S2 normal heart sound present GI: Inspection: Yes normal to inspection Palpation (GI): Soft to palpation, nontender, no guarding and not rigid : General: Yes no CVA tenderness Back/Spine/Pelvis: Other: No midline cervical/thoracic/lumbar spinous tenderness/step-off or deformity. + right-sided lower lumbar MSK tenderness to palpation reproducing subjective complaint. No erythema/rash Back: no CVA tenderness Skin: Rashes: no rashes Wounds: no wounds Neuro: Other: Strength intact throughout. No saddle anesthesia. Sensation intact to light touch. Neurovascular intact distally General: patient oriented x3, gait normal, tone normal, moves all extremities and no meningeal signs Cranial nerves: Yes CN's II-XII intact bilaterally Gait exam (Neuro): Normal gait present Sensory Exam: No Sensory deficit (Neuro) Extrem: Other: Right shoulder without noted deformity. + tenderness greatest to AC joint/anterior aspect. Limited ROM secondary to pain. Neurovascular intact distally. General: Yes normal to inspection Course Course Course Narrative: XR shoulder RT min 2V IMPRESSION: No acute abnormality. XR lumbar spine 2-3V IMPRESSION: Facet osteoarthritis at L5-S1. Results discussed with patient including worrisome signs and symptoms and strict return precautions, and when to return to the emergency department. They verbalized understanding and feel safe for discharge at this time. Medications Administered Discontinued Medications Generic Name Dose Route Start Last Admin Trade Name Freq PRN Reason Stop Dose Admin Ketorolac Tromethamine 30 mg 10/27/23 09:43 10/27/23 10:02 Ketorolac Tromethamine 30 Mg/Ml Vial IM 10/27/23 09:44 30 mg ONCE ONE Administration Lidocaine 1 patch 10/27/23 09:43 10/27/23 10:03 Lidocaine 4 % Patch Adh..Patch TRANSDERMA 10/27/23 09:44 1 patch ONCE ONE Administration Protocol Medical Decision Making Medical Decision Making MDM Narrative: 48-year-old male with past medical history of hypertension, anxiety, depression, presenting to the ED complaining of right shoulder and right-sided low back pain s/p mechanical slip and fall on wet floor 3 months ago. On exam vital signs stable, NAD, nontoxic appearing, physical exam as noted above. No midline spinous tenderness throughout or red flag symptoms. Concerned for MSK pain/str ain vs soft tissue/tendon/ligamental or rotator cuff injury. Low suspicion for cauda equina/cord compression, epidural abscess, fracture, or renal stone Plan: X-rays, pain control, orthopedic/PCP follow-up Please refer to course for remaining clinical decision making, interpretation of labs/imaging results, and discussions with consultants and/or family members. Differential Diagnosis Differential Diagnoses: The differential diagnosis associated with the presentation includes As above Independent Interpretation I performed an independent interpretation of an: Plain X-Ray Radiology Impression Discussion of test interpretation with radiology: I have reviewed the radiologist's reading. External Record Review External record reviewed: Inpatient record, Office record, Outpatient record, Prior outpatient labs, Prior outpatient radiology, Primary care record and Outside ED record Tests considered The following testing was considered but not selected: As above Prescription Management I considered prescription management with: Pain Medication Discharge Plan Discharge Clinical Impression: Pain in right shoulder, Low back pain Patient Disposition: Home, Self-Care Instructions: Acute Low Back Pain (ED), Shoulder Pain (ED) Additional Instructions: Your x-rays are unremarkable You need to follow-up with orthopedics in your doctor. He may need an MRI of your shoulder Flexeril is a muscle relaxer, take at night as it makes you drowsy, do not drive, drink alcohol, or operate machinery while taking it Naproxen as an anti-inflammatory / pain medication, take with food Lidoderm patches are numbing patches, apply to painful area In addition take Tylenol at home If symptoms persist or worsen, pain becomes unbearable, you developed urinary retention or incontinence, or weakness return to the ED Prescriptions: New acetaminophen [Tylenol Extra Strength] 500 mg tablet 500 mg PO Q6H PRN (Reason: fever or pain) Qty: 14 0RF lidocaine [Lidoderm] 5 % adhesive patch,medicated 1 patch topical DAILY MDD remove after 12 hours PRN (Reason: pain) Qty: 30 0RF Rx Instructions: leave on most painful area for up to 12 hrs naproxen 500 mg tablet 500 mg PO BID PRN (Reason: pain) 10 Days Qty: 20 0RF cyclobenzaprine 5 mg tablet 5 mg PO Q8H PRN (Reason: pain (scale score 7-10)) 5 Days Qty: 14 0RF No Action benztropine 0.5 mg tablet 0.5 mg PO BID olanzapine 5 mg tablet 5 mg PO BID PRN (Reason: Agitation) olanzapine 10 mg tablet 10 mg PO BID pantoprazole 20 mg tablet,delayed release (DR/EC) 20 mg PO DAILY@0630 cholecalciferol (vitamin D3) [Vitamin D3] 10 mcg (400 unit) tablet 1 tab PO DAILY carbamazepine 400 mg Tablet Extended Release 12 Hr 400 mg PO BID fluoxetine 40 mg Capsule 40 mg PO DAILY nicotine 21 mg/24 hr Patch 24 Hour 1 patch TRANSDERMAL DAILY carbamazepine 200 mg tablet 400 mg PO DAILY Qty: 14 0RF trazodone 100 mg tablet 100 mg PO BEDTIME PRN (Reason: insomnia) Qty: 7 0RF trazodone 100 mg tablet 2 tab PO BEDTIME PRN (Reason: Anxiety) propranolol 20 mg tablet 20 mg PO TID Referrals: [facility] [Provider Group]
[2023-10-27] MEDS: Ketorolac Tromethamine 30 MG/ML VIAL IM (10:02)
[2023-10-27] MEDS: Lidocaine 4 % Patch ADH..PATCH 1 PATCH TRANSDERMA (10:03)
== END 2023-10-27 12:06 | disposition home or self-care (01) ==
PROVIDERS: Emergency Provider Emergency Medicine Emergency Medical Services
DX: M25.511 Pain in right shoulder (principal); M54.50 Low back pain, unspecified
CPT/HCPCS: 72100; 73030; 96372; 99283; 99284; J1885

== ENCOUNTER 2023-11-10 09:42 | Emergency (ER) | payer MEDICARE, MEDICAID, SELFPAY ==
--- NOTE | ~2023-11-10 | XR_ITS ---
EXAMINATION: XR SHOULDER, RIGHT CLINICAL INFORMATION: Fall, pain COMPARISON: 10/27/2023 TECHNIQUE: Three views of the right shoulder. FINDINGS: No acute fracture or malalignment. Mild acromioclavicular and glenohumeral osteoarthritis. Laterally downsloping acromion with small subacromial spur. XR/XR shoulder RT min 2V IMPRESSION: No acute fracture or malalignment. Mild acromioclavicular and glenohumeral osteoarthritis.
--- NOTE | ~2023-11-10 | XR_ITS ---
EXAMINATION: XR LUMBOSACRAL SPINE CLINICAL INFORMATION: Fall with pain COMPARISON: 10/27/2023 TECHNIQUE: Three views of the lumbosacral spine. FINDINGS: Normal alignment and lumbar lordosis. No fracture. Mild multilevel degenerative disc disease with anterior endplate osteophytes, unchanged. No new abnormality. XR/XR lumbar spine 2-3V IMPRESSION: Mild multilevel degenerative disc disease. No fracture or malalignment.
[2023-11-10 09:52] VITALS: BP 150/96; PULSE 83; RESP 18; TEMP 37.2; O2SAT 98; BMI 30.9
--- NOTE | 2023-11-10 10:27 | ED.BACK ---
HPI - Back Pain/Injury General Chief Complaint: Back Pain/Injury Stated Complaint: Back pain Time Seen by Provider: 11/10/23 10:08 Source: patient Mode of arrival: ambulatory Limitations: no limitations History of Present Illness HPI Narrative: 48 yr old male with a history of anxiety, depression, hypertension, bipolar disorder presents the ER with complaints right lower back pain and right shoulder pain for the last 4-5 months. Patient reports while he was incarcerated he had a slip and fall on waxy floors year landing backwards hitting his lower back. At that point there was no head injury or loss of consciousness. He is unsure if he hit his shoulder during that fall as well. He was seen by the nurse [facility] he was in [facility] and he had x-rays which the patient tells me he believes were normal. He has had intermittent pain since then. Patient reports today he found out that his nephew had . He tells me that he ran a distance and since the run he has had increasing pain in his lower back and his right shoulder. He reports the pain radiates from his right lower back down his right leg. There is no associated weakness, numbness or tingling of the extremity. No associated numbness in the groin. No associated bowel or bladder incontinence. No associated fevers or chills. He is right-hand dominant. He does report pain in his right shoulder with no associated weakness, numbness or tingling of the extremity. Related Data Home Medications Medication Instructions Recorded Confirmed propranolol 20 mg tablet 20 mg PO TID 01/29/21 03/20/21 trazodone 100 mg tablet 2 tab PO BEDTIME PRN Anxiety 01/29/21 03/20/21 benztropine 0.5 mg tablet 0.5 mg PO BID 03/20/21 03/20/21 carbamazepine 400 mg 400 mg PO BID 03/20/21 03/20/21 tablet,extended release,12 hr cholecalciferol (vitamin D3) 10 1 tab PO DAILY 03/20/21 03/20/21 mcg (400 unit) tablet (Vitamin D3) fluoxetine 40 mg capsule 40 mg PO DAILY 03/20/21 03/20/21 nicotine 21 mg/24 hr daily 1 patch transdermal DAILY 03/20/21 03/20/21 transdermal patch olanzapine 10 mg tablet 10 mg PO BID 03/20/21 03/20/21 olanzapine 5 mg tablet 5 mg PO BID PRN Agitation 03/20/21 03/20/21 pantoprazole 20 mg tablet,delayed 20 mg PO DAILY@0630 03/20/21 03/20/21 release Previous Rx's Medication Instructions Recorded carbamazepine 200 mg tablet 400 mg (2 x 200 mg) PO DAILY #14 07/16/21 tabs trazodone 100 mg tablet 100 mg PO BEDTIME PRN insomnia #7 07/16/21 tabs acetaminophen 500 mg tablet 500 mg PO Q6H PRN fever or pain 10/27/23 (Tylenol Extra Strength) #14 tabs cyclobenzaprine 5 mg tablet 5 mg PO Q8H PRN pain (scale score 10/27/23 7-10) 5 days #14 tabs lidocaine 5 % topical patch 1 patch topical DAILY PRN pain #30 10/27/23 (Lidoderm) ea naproxen 500 mg tablet 500 mg PO BID PRN pain 10 days #20 10/27/23 tabs Allergies Allergy/AdvReac Type Severity Reaction Status Date / Time duloxetine [From CYMBALTA] Allergy Unknown RASH Verified 11/10/23 09:54 shrimp Allergy Anaphylaxis Verified 11/10/23 09:54 Review of Systems Review of Systems: Yes all other systems are reviewed and are negative Constitutional: Constitutional: Reports no additional constitutional complaints, Denies body ache(s), Denies chills, Denies fever(s), Denies headache(s) and Denies weakness Eyes: Eyes: Reports no additional eye complaints and Denies change in vision ENT: Reports system reviewed and no additional complaints, except as documented, Denies dizziness, Denies headache(s), Denies nasal congestion, Denies nasal discharge and Denies neck pain Cardiovascular: Cardiovascular: Reports no additional cardiovascular complaints, Denies chest pain, Denies leg edema and Denies dyspnea Respiratory: Respiratory: Reports no additional respiratory complaints, Denies cough and Denies dyspnea Gastrointestinal: Gastrointestinal: Reports no additional gastrointestinal complaints, Denies abdominal pain, Denies diarrhea, Denies nausea and Denies vomiting Genitourinary: Genitourinary: Denies urinary incontinence Musculoskeletal: Musculoskeletal: Reports no additional musculoskeletal complaints, Reports back pain, Reports arthralgias, Denies joint swelling, Denies limited range of motion, Denies neck pain, Denies numbness, Reports radiating pain into limb and Denies tingling Integumentary/Breasts: Skin/Breast: Reports system reviewed and no additional complaints, except as docu and Denies rash Neurologic: Reports system reviewed and no additional complaints, except as documented, Denies Abnormal speech present, Denies dizziness, Denies headache(s), Denies numbness, Denies tingling and Denies weakness PMFSH Past Medical History Attestation statement: The following information was validated with the patient. Source: old records reviewed and nursing notes reviewed Medical History Hypertension Anxiety Depression Social History Social History Alcohol intake: current Comment: sleeping Substance Use Type: Marijuana Advance Directives: No Physical Exam Vital Signs: Vital Signs: Last Vital Signs Temp 98.9 F 11/10/23 09:52 Pulse 83 11/10/23 09:52 Resp 18 11/10/23 09:52 BP 150/96 H 11/10/23 09:52 Pulse Ox 98 11/10/23 09:52 O2 Del Method Room Air 11/10/23 09:52 BMI result Body Mass Index 30.9 Const: General: cooperative, healthy appearing, comfortable and no acute distress Orientation/consciousness: patient oriented x3 Limitations: no limitations HEENT: Head: Yes normal to inspection Ears: hearing grossly normal bilaterally General nose exam: Normal external nose present Face and sinus: Yes normal facial exam Mouth: Normal oral and palatal mucosa present Throat: Yes posterior oropharynx normal Eyes: General: appearance normal, both eyes and all related structures Pupils: Equal, round and reactive pupils present Neck: Neck: Yes normal visual inspection Chest: Chest palpation & inspection: normal inspection of the chest Resp: Effort & Inspection: normal respiratory effort Auscultation: clear to auscultation bilaterally Cardio: Rate: regular rate Rhythm: regular rhythm Peripheral pulses: Peripheral pulses 2+ throughout GI: Inspection: Yes normal to inspection Palpation (GI): Soft to palpation and nontender Auscultation: normal bowel sounds Back/Spine/Pelvis: Other: Pain on palpation to the right lumbar soft tissue with no midline tenderness, step-offs deformities. Pain is worsened with right straight leg raise. Thoracic/Lumbar Spine: thoracic and lumbar spine normal to inspection Skin: General skin exam: no rashes or lesions noted Neuro: General: patient oriented x3, no focal motor deficits and normal sensation to monofilament Cranial nerves: Yes Equal, round and reactive pupils present Cognition (Neuro): normal cognition Speech: No Abnormal speech present Gait exam (Neuro): Normal gait present Motor exam (neuro): 5/5 motor strength present throughout Sensory Exam: Normal double simultaneous stimulation for sensation Deep tendon reflexes (DTR's): Right patellar reflex intensity grade: 2+ and Left patellar reflex intensity grade: 2+ Extrem: Other: Pain on palpation to the anterior right shoulder which is worsened with abduction of the extremity. No weakness. Normal sensation distally. Normal radial normal pulses. General: Yes normal to inspection Course Course Course Narrative: 1250-could not wait for x-rays, walked out of the ER department Medications Administered Discontinued Medications Generic Name Dose Route Start Last Admin Trade Name Freq PRN Reason Stop Dose Admin Ketorolac Tromethamine 30 mg 11/10/23 10:26 11/10/23 10:34 Ketorolac Tromethamine 30 Mg/Ml Vial IM 11/10/23 10:27 30 mg ONCE ONE Administration Medical Decision Making Medical Decision Making [facility] Narrative: 48 yr old male with a history of anxiety, depression, hypertension, bipolar disorder presents the ER with complaints right lower back pain and right shoulder pain for the last 4-5 months. Patient reports while he was incarcerated he had a slip and fall on [place]axy floors year landing backwards hitting his lower back. At that point there was no head injury or loss of consciousness. He is unsure if he hit his shoulder during that fall as well. He was seen by the nurse [facility] he was in [facility] and he had x-rays which the patient tells me he believes were normal. He has had intermittent pain since then. Patient reports today he found out that his nephew had . He tells me that he ran a distance and since the run he has had increasing pain in his lower back and his right shoulder. He reports the pain radiates from his right lower back down his right leg. There is no associated weakness, numbness or tingling of the extremity. No associated numbness in the groin. No associated bowel or bladder incontinence. No associated fevers or chills. He is right-hand dominant. He does report pain in his right shoulder with no associated weakness, numbness or tingling of the extremity. Pain on palpation to the right lumbar soft tissue with no focal neurological deficits or red flag symptoms. Will check x-rays. Tenderness on palpation to the right anterior shoulder which is worsened with abduction of the extremity. Will check x-rays. Will provide analgesia. Differential Diagnosis Differential Diagnoses: The differential diagnosis associated with the presentation includes Contusion, sprain, strain, lumbar radiculopathy, sciatic low concern for cord compression, cauda equina, epidural abscess, AAA, renal colic, pyelonephritis, ACS- gradual onset of symptoms, no neurological deficits or red flag symptoms. No history of immunocompromise state. No history of IV drug abuse. No reports of fevers or chills. Admission/Observation Consideration of admission/observation: Escalation of care including admission/observation considered no neurological deficits or red flag symptoms suggest need for emergent MRI, neurosurgery consultation or transfer to tertiary care center. Independent Interpretation I performed an independent interpretation of an: Plain X-Ray Radiology Impression Discussion of test interpretation with radiology: I have reviewed the radiologist's reading. Tests considered The following testing was considered but not selected: No neurological deficits or red flag symptoms suggest need for emergent MRI Prescription Management I considered prescription management with: Pain Medication Discharge Plan Discharge Clinical Impression: Back pain, Shoulder pain Patient Disposition: Left W/O Completing Treatment Prescriptions: No Action benztropine 0.5 mg tablet 0.5 mg PO BID olanzapine 5 mg tablet 5 mg PO BID PRN (Reason: Agitation) olanzapine 10 mg tablet 10 mg PO BID pantoprazole 20 mg tablet,delayed release (DR/EC) 20 mg PO DAILY@0630 cholecalciferol (vitamin D3) [Vitamin D3] 10 mcg (400 unit) tablet 1 tab PO DAILY carbamazepine 400 mg Tablet Extended Release 12 Hr 400 mg PO BID fluoxetine 40 mg Capsule 40 mg PO DAILY nicotine 21 mg/24 hr Patch 24 Hour 1 patch TRANSDERMAL DAILY carbamazepine 200 mg tablet 400 mg PO DAILY Qty: 14 0RF trazodone 100 mg tablet 100 mg PO BEDTIME PRN (Reason: insomnia) Qty: 7 0RF trazodone 100 mg tablet 2 tab PO BEDTIME PRN (Reason: Anxiety) propranolol 20 mg tablet 20 mg PO TID acetaminophen [Tylenol Extra Strength] 500 mg tablet 500 mg PO Q6H PRN (Reason: fever or pain) Qty: 14 0RF lidocaine [Lidoderm] 5 % adhesive patch,medicated 1 patch topical DAILY MDD remove after 12 hours PRN (Reason: pain) Qty: 30 0RF Rx Instructions: leave on most painful area for up to 12 hrs naproxen 500 mg tablet 500 mg PO BID PRN (Reason: pain) 10 Days Qty: 20 0RF cyclobenzaprine 5 mg tablet 5 mg PO Q8H PRN (Reason: pain (scale score 7-10)) 5 Days Qty: 14 0RF Discharge Date/Time: 11/10/23 12:50
[2023-11-10] MEDS: Ketorolac Tromethamine 30 MG/ML VIAL IM (10:34)
--- NOTE | 2023-11-10 12:47 | PC.NURSE ---
Patient ambulatory to nursing station with a steady gait, patient states I have to elope, I can't stay any longer. I've been here forever waiting on my xrays. Patient made aware by KRISH Cunningham that we do not have any control over how quickly the xrays are read, as they are read by a radiologist. Patient verbalized understanding, patient stated he still would like to leave. Patient A&Ox3, shown the exit per request.
== END 2023-11-10 12:50 | disposition left against medical advice (07) ==
PROVIDERS: Emergency Provider Emergency Medicine Emergency Medical Services
DX: M54.50 Low back pain, unspecified (principal); M25.511 Pain in right shoulder; Z79.899 Other long term (current) drug therapy
CPT/HCPCS: 72100; 73030; 96372; 99282; 99284; J1885

== ENCOUNTER 2023-12-18 09:27 | Emergency (ER) | payer MEDICARE, MEDICAID, SELFPAY ==
[2023-12-18 09:34] VITALS: BP 162/100; PULSE 99; RESP 18; TEMP 36; O2SAT 98; BMI 29.4
--- NOTE | 2023-12-18 10:01 | ED.BACK ---
HPI - Back Pain/Injury General Chief Complaint: Back Pain/Injury Stated Complaint: Bilateral foot/knee pain/lower back pain Time Seen by Provider: 12/18/23 09:57 Source: patient Mode of arrival: ambulatory Limitations: no limitations History of Present Illness HPI Narrative: patient is a 48-year-old male who presents to the emergency department for evaluation of diffuse lower back pain and right shoulder pain, these both began approximately 5 months ago after a fall while incarcerated. He states that he was seen by a doctor, had x-rays already was advised that they were normal in referred for physical therapy which he states has overall not been helpful. Also he states he is having pain to the soles of his bilateral feet and knees, this has been going on for 2 months. 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 He does endorse a mild cough as well with rhinorrhea. Denies fevers, chills, Chest pain, shortness of breath, difficulty breathing, nausea vomiting, abdominal pain, burning with micturition, urinary frequency/urgency/hesitancy, bladder or bowel dysfunction, numbness or tingling of the perineum or bilateral legs. Denies any recent surgical procedures, any known immune compromising conditions, personal history of cancer, or IV drug usage. MD elicited complaint: back pain Related Data Home Medications Medication Instructions Recorded Confirmed propranolol 20 mg tablet 20 mg PO TID 01/29/21 03/20/21 trazodone 100 mg tablet 2 tab PO BEDTIME PRN Anxiety 01/29/21 03/20/21 benztropine 0.5 mg tablet 0.5 mg PO BID 03/20/21 03/20/21 carbamazepine 400 mg 400 mg PO BID 03/20/21 03/20/21 tablet,extended release,12 hr cholecalciferol (vitamin D3) 10 1 tab PO DAILY 03/20/21 03/20/21 mcg (400 unit) tablet (Vitamin D3) fluoxetine 40 mg capsule 40 mg PO DAILY 03/20/21 03/20/21 nicotine 21 mg/24 hr daily 1 patch transdermal DAILY 03/20/21 03/20/21 transdermal patch olanzapine 10 mg tablet 10 mg PO BID 03/20/21 03/20/21 olanzapine 5 mg tablet 5 mg PO BID PRN Agitation 03/20/21 03/20/21 pantoprazole 20 mg tablet,delayed 20 mg PO DAILY@0630 03/20/21 03/20/21 release Previous Rx's Medication Instructions Recorded carbamazepine 200 mg tablet 400 mg (2 x 200 mg) PO DAILY #14 07/16/21 tabs trazodone 100 mg tablet 100 mg PO BEDTIME PRN insomnia #7 07/16/21 tabs acetaminophen 500 mg tablet 500 mg PO Q6H PRN fever or pain 10/27/23 (Tylenol Extra Strength) #14 tabs cyclobenzaprine 5 mg tablet 5 mg PO Q8H PRN pain (scale score 10/27/23 7-10) 5 days #14 tabs lidocaine 5 % topical patch 1 patch topical DAILY PRN pain #30 10/27/23 (Lidoderm) ea naproxen 500 mg tablet 500 mg PO BID PRN pain 10 days #20 10/27/23 tabs Allergies Allergy/AdvReac Type Severity Reaction Status Date / Time duloxetine [From CYMBALTA] Allergy Unknown RASH Verified 12/18/23 09:35 shrimp Allergy Anaphylaxis Verified 12/18/23 09:35 Review of Systems Review of Systems: Yes all other systems are reviewed and are negative PMFSH Past Medical History Attestation statement: The following information was validated with the patient. Source: old records reviewed Medical History Hypertension Anxiety Depression Social History Social History Alcohol intake: current Comment: sleeping Substance Use Type: Marijuana Advance Directives: Yes Advance Directives on File: Yes Advance Directives Date on File: 01/13/21 Physical Exam Vital Signs: Vital Signs: Last Vital Signs Temp 96.8 F 12/18/23 09:34 Pulse 99 12/18/23 09:34 Resp 18 12/18/23 09:34 BP 162/100 H 12/18/23 09:34 Pulse Ox 98 12/18/23 09:34 O2 Del Method Room Air 12/18/23 09:34 BMI result Body Mass Index 29.4 Appearance: Alert.?Oriented to person, place and time. No acute distress.?Normal affect. Eyes: Pupils equal, round and reactive to light.? ENT: Pharynx normal.?? TM normal bilaterally. Neck: Normal inspection.? Neck supple.?? No cervical lymphadenopathy CVS: Heart sounds normal. Normal heart rate and rhythm.? Pulses normal; bilateral radial pulses 2+, bilateral posterior tibial/dorsalis pedis pulses 2+.? Respiratory: No respiratory distress.? Lung sounds clear to auscultation bilaterally?? Abdomen: Soft and non-tender. Normoactive bowel sounds. No pulsatile mass.?? Skin: Skin warm and dry.? Normal skin color.? Normal skin turgor.?? Extremities: No lower extremity edema.? No calf ttp? Back: + mild diffuse lumbar soft tissue and muscular tenderness upon palpation.No CVA tenderness. No midline spinal tenderness, step-off's, or deformity. Full ROM intact in bilateral lower extremities. Straight leg test Negative on right; Straight leg test negative on left. No rashes, lesions, areas of induration or fluctuance, or signs of infection noted., Neuro: Moves all extremities spontaneously. 5/5 strength in hip extension/flexion, abduction, adduction. Sensation to light touch intact bilaterally. Patellar and Achilles reflex 2+ bilaterally. No ataxia, gait normal and steady.. No focal neuro deficits. Medications Administered Discontinued Medications Generic Name Dose Route Start Last Admin Trade Name Freq PRN Reason Stop Dose Admin Ketorolac Tromethamine 30 mg 12/18/23 10:08 12/18/23 10:15 Ketorolac Tromethamine 30 Mg/Ml Vial IM 12/18/23 10:09 30 mg ONCE ONE Administration Medical Decision Making Medical Decision Making [facility] Narrative: patient is a 48-year-old male with past medical history hypertension, depression, anxiety, bipolar, substance use disorder who presents to the emergency department for evaluation of chronic shoulder and low back pain in addition to bilateral knee and bilateral foot pain for the past 2 months. Upon inquiring shoulder and back or no worse than usual but he states just not getting better. When asked whether he has followed up with his primary care doctor he states that he needs to schedule an appointment to do so. I suspect that the pain to his feet and knees are due to overuse with extensive walking as he reports daily. However given he is also having mild cough and rhinorrhea tested for COVID- 19/influenza Negative. Improvement in pain with Toradol IM. discussed with patient differential including muscular strain, arthritis, conservative treatment including rest, ice, compression, acetaminophen/NSAID. Examination is not consistent with any septic joint, no lesions or wounds to the bilateral feet, back pain appears most consistent with muscular etiology, no focal neurological deficits. Lower suspicion for spinal infection, epidural abscess, AAA, dissection, no high-risk past medical history, No evidence of cauda equina syndrome no indication for emergent MRI/ CT. No genitourinary symptoms less likely UTI/pyelonephritis. Differential Diagnosis Differential Diagnoses: The differential diagnosis associated with the presentation includes ( see narrative above) Admission/Observation Consideration of admission/observation: Escalation of care including admission/observation considered ( see narrative above) Lab Data MDM Lab Attestation statement: I reviewed the patient's lab results. ( see narrative above) Labs: Lab Results 12/18/23 Range/Units 10:17 COVID-19 (RAF) Negative (Negative) COVID-19 Clin Com See Note Influenza Type A (BRIGITTE) Negative (Negative) Influenza Type B (BRIGITTE) Negative (Negative) Influenza A & B Note See Note External Record Review External record reviewed: Outpatient record Tests considered The following testing was considered but not selected: see narrative above, CT / MRI deferred. Prescription Management I considered prescription management with: Pain Medication ( acetaminophen/ibuprofen) Discharge Plan Discharge Clinical Impression: Arthralgia, Strain of lumbar region Patient Disposition: Home, Self-Care Instructions: Back Pain (ED), R.I.C.E. Treatment (ED), Lower Back Exercises (ED) Additional Instructions: As discussed, you will need to follow-up with your primary care provider for further management of your chronic pain. Testing for COVID and flu were negative today. You can take ibuprofen 200 mg, 3 tablets (600mg) every 6-8 hours as needed for pain, in addition to Tylenol 500 mg, 2 tablets (1,000mg) every 4-6 hours as needed for pain, but not to exceed 3 doses daily (3,000mg).? Prescriptions: No Action benztropine 0.5 mg tablet 0.5 mg PO BID olanzapine 5 mg tablet 5 mg PO BID PRN (Reason: Agitation) olanzapine 10 mg tablet 10 mg PO BID pantoprazole 20 mg tablet,delayed release (DR/EC) 20 mg PO DAILY@0630 cholecalciferol (vitamin D3) [Vitamin D3] 10 mcg (400 unit) tablet 1 tab PO DAILY carbamazepine 400 mg Tablet Extended Release 12 Hr 400 mg PO BID fluoxetine 40 mg Capsule 40 mg PO DAILY nicotine 21 mg/24 hr Patch 24 Hour 1 patch TRANSDERMAL DAILY carbamazepine 200 mg tablet 400 mg PO DAILY Qty: 14 0RF trazodone 100 mg tablet 100 mg PO BEDTIME PRN (Reason: insomnia) Qty: 7 0RF trazodone 100 mg tablet 2 tab PO BEDTIME PRN (Reason: Anxiety) propranolol 20 mg tablet 20 mg PO TID acetaminophen [Tylenol Extra Strength] 500 mg tablet 500 mg PO Q6H PRN (Reason: fever or pain) Qty: 14 0RF lidocaine [Lidoderm] 5 % adhesive patch,medicated 1 patch topical DAILY MDD remove after 12 hours PRN (Reason: pain) Qty: 30 0RF Rx Instructions: leave on most painful area for up to 12 hrs naproxen 500 mg tablet 500 mg PO BID PRN (Reason: pain) 10 Days Qty: 20 0RF cyclobenzaprine 5 mg tablet 5 mg PO Q8H PRN (Reason: pain (scale score 7-10)) 5 Days Qty: 14 0RF Referrals: Physician,None [Primary Care Provider] -
[2023-12-18] MEDS: Ketorolac Tromethamine 30 MG/ML VIAL IM (10:15)
[2023-12-18 10:59] LABS: COVID-19 Test Negative (Negative); IDNOW Serial# 58CA691E
[2023-12-18 11:00] LABS: IDNOW Serial# 9DB6401D; Influenza A Negative (Negative); Influenza B2 Negative (Negative)
== END 2023-12-18 11:29 | disposition home or self-care (01) ==
PROVIDERS: Nurse Practitioner Family; Emergency Provider Emergency Medicine
DX: S39.012A Strain of muscle, fascia and tendon of lower back, initial encounter (principal); M79.672 Pain in left foot; M79.671 Pain in right foot; W19.XXXA Unspecified fall, initial encounter; Y93.9 Activity, unspecified; Y92.9 Unspecified place or not applicable; Y99.8 Other external cause status; Z11.52 Encounter for screening for COVID-19; Z79.899 Other long term (current) drug therapy
CPT/HCPCS: 87502; 87635; 96372; 99283; 99284; J1885

== ENCOUNTER 2024-05-16 06:23 | Emergency (ER) | payer MEDICARE, MEDICAID, SELFPAY ==
[2024-05-16 06:29] VITALS: BP 145/101; PULSE 77; RESP 20; TEMP 36.6; O2SAT 97; BMI 29.4
--- NOTE | 2024-05-16 07:58 | ED_ITS ---
HPI - General Adult General Chief complaint: General Medical Stated complaint: knee pain, foot inj Time Seen by Provider: 05/16/24 07:30 Source: patient and RN notes reviewed Mode of arrival: ambulatory Limitations: no limitations History of Present Illness ED Provider: Fallon Wong PA-C HPI narrative: This is a 48-year-old male, with a history of hypertension, who presents emergency department with multiple complaints. Patient reports that he has been suffering with constipation for several weeks, last bowel movement was this morning. Coarse he also states ongoing right shoulder pain after a fall which occurred 1 year ago that was originally assessed in the past still persistent have saw him. He does have bilateral knee pain as well as bilateral he denies any recent injury, trauma. He states that initially your worsens with standing worsens in his knees with movement. He also states that pain in the bottom of his feet is worse in the morning and especially worsens with prolonged standing. He denies any fevers, chills, chest pain, shortness of breath, nausea, vomiting. He denies taking any medications for his symptoms. No other complaints or concerns at this time. MD complaint: Multiple complaints Onset (ago): month(s) Relieving factors: none Exacerbating factors: none Associated symptoms: denies other symptoms Treatments prior to arrival: none Related Data Home Medications ?Medication ?Instructions ?Recorded ?Confirmed propranolol 20 mg tablet 20 mg PO TID 01/29/21 03/20/21 trazodone 100 mg tablet 2 tab PO BEDTIME PRN Anxiety 01/29/21 03/20/21 benztropine 0.5 mg tablet 0.5 mg PO BID 03/20/21 03/20/21 carbamazepine 400 mg 400 mg PO BID 03/20/21 03/20/21 tablet,extended release,12 hr cholecalciferol (vitamin D3) 10 1 tab PO DAILY 03/20/21 03/20/21 mcg (400 unit) tablet (Vitamin D3) fluoxetine 40 mg capsule 40 mg PO DAILY 03/20/21 03/20/21 nicotine 21 mg/24 hr daily 1 patch transdermal DAILY 03/20/21 03/20/21 transdermal patch olanzapine 10 mg tablet 10 mg PO BID 03/20/21 03/20/21 olanzapine 5 mg tablet 5 mg PO BID PRN Agitation 03/20/21 03/20/21 pantoprazole 20 mg tablet,delayed 20 mg PO DAILY@0630 03/20/21 03/20/21 release Previous Rx's ?Medication ?Instructions ?Recorded carbamazepine 200 mg tablet 400 mg (2 x 200 mg) PO DAILY #14 07/16/21 tabs trazodone 100 mg tablet 100 mg PO BEDTIME PRN insomnia #7 07/16/21 tabs acetaminophen 500 mg tablet 500 mg PO Q6H PRN fever or pain 10/27/23 (Tylenol Extra Strength) #14 tabs cyclobenzaprine 5 mg tablet 5 mg PO Q8H PRN pain (scale score 10/27/23 7-10) 5 days #14 tabs lidocaine 5 % topical patch 1 patch topical DAILY PRN pain #30 10/27/23 (Lidoderm) ea naproxen 500 mg tablet 500 mg PO BID PRN pain 10 days #20 10/27/23 tabs docusate calcium 240 mg capsule 240 mg PO DAILY #30 caps 05/16/24 naproxen 500 mg tablet 500 mg PO BID #60 tabs 05/16/24 polyethylene glycol 3350 17 17 g PO DAILY #119 grams 05/16/24 gram/dose oral powder (Miralax) Allergies Allergy/AdvReac Type Severity Reaction Status Date / Time duloxetine [From CYMBALTA] Allergy Unknown RASH Verified 05/16/24 06:39 shrimp Allergy Anaphylaxis Verified 05/16/24 06:39 Review of Systems Review of Systems: Yes all other systems are reviewed and are negative Constitutional: Constitutional: Reports as per [facility] Past Medical History Attestation statement: The following information was validated with the patient. Medical History Hypertension Anxiety Depression Social History Social History Alcohol intake: current Comment: sleeping Substance Use Type: Marijuana Advance Directives: Yes Advance Directives on File: Yes Advance Directives Date on File: 01/13/21 Do you have a plan to hurt others: No Plan Physical Exam ED Vital Signs: Vital Signs - 24 hr 05/16/24 06:29 05/16/24 08:18 Temperature 97.8 F 97.7 F Pulse Rate 77 62 Respiratory Rate 20 18 Blood Pressure 145/101 H 158/105 H Pulse Oximetry 97 98 Oxygen Delivery Method Room Air Room Air BMI result Body Mass Index 29.4 Const General: cooperative, comfortable and no acute distress Orientation/consciousness: patient oriented x3 Limitations: no limitations HENMT Head: Yes normal to inspection, Yes normocephalic and Yes atraumatic Ears: hearing grossly normal bilaterally General nose exam: Normal external nose present Face and sinus: Yes normal facial exam Mouth: Normal oral and palatal mucosa present, oropharynx normal and moist mucous membranes Throat: Yes posterior oropharynx normal Eyes General: appearance normal, both eyes and all related structures Eyelids: Yes eyelids normal Conjunctivae: conjunctivae normal Sclerae: sclerae normal Pupils: Equal, round and reactive pupils present EOM: EOMs intact bilaterally Neck Neck: Yes normal visual inspection, Yes full ROM and Yes no lymphadenopathy Lymphatic: no lymphadenopathy noted Chest Chest palpation & inspection: normal inspection of the chest Resp Effort & Inspection: normal respiratory effort and able to speak in complete sentences Auscultation: clear to auscultation bilaterally, no crackles, no rales, no rhonchi and no wheezes Cardio Rate: regular rate Rhythm: regular rhythm Heart sounds: S1 normal heart sound present and S2 normal heart sound present GI Other: Abdomen is soft and nontender. Normoactive bowel sounds present in all 4 quadrants. Inspection: Yes normal to inspection Skin General skin exam: no rashes or lesions noted Trauma: no lacerations or abrasions Wounds: no wounds Neuro General: patient oriented x3 and moves all extremities Cranial nerves: Yes Equal, round and reactive pupils present Extrem Other: Bilateral plantar feet with mild tenderness palpation, no overlying erythema, or fluctuant. Strong DP pulse. Distal sensation circulation intact. Full range of motion of the ankle and focal Bilateral knees, with diffuse tenderness throughout, no overlying skin changes, full range of motion. Right shoulder with mild tenderness throughout the joint, with worsening pain with movement. Distal sensation circulation intact. General: Yes normal to inspection Right upper extremity: normal to inspection Left upper extremity: normal to inspection Right lower extremity: normal to inspection Left lower extremity: normal to inspection Medical Decision Making Medical Decision Making MDM Narrative: This is a 48-year-old male who presents to the emergency department with complaints of multiple complaints. Patient has had chronic constipation has not been taking any medications for this. No bloody or black stool, no abdominal tenderness. Will treat with MiraLax and docusate. He is also having bilateral chronic knee pain, without any injury. Examination with no acute findings, will refer to orthopedics for further management. Bilateral feet with tenderness palpation along the plantar aspect, he does have flat feet, he has no evidence of infection at this time. Symptoms likely plantar fasciitis in nature. Discussed workup with patient today. Will treat with docusate, MiraLax, anti- inflammatories, also given referral to Orthopedics and Podiatry. Given return precautions as well as referral to [facility] for primary care. He understands and agrees with plan. His vital signs are stable, he is nontoxic appearing, well-appearing, ambulatory with steady gait. Further assessment with x-rays, not indicated at this time. No evidence of infection therefore labs are not warranted. Patient stable for discharge. Differential Diagnosis Differential Diagnoses: The differential diagnosis associated with the presentation includes Chronic pain, constipation, SBO-unlikely, osteoarthritis, plantar fasciitis, gout Discharge Plan Discharge Clinical Impression: Bilateral plantar fasciitis Constipation Qualifiers: Constipation type: unspecified constipation type Qualified Code(s): K59.00 - Constipation, unspecified Chronic knee pain Qualifiers: Laterality: bilateral Qualified Code(s): M25.561 - Pain in right knee Chronic shoulder pain Qualifiers: Laterality: right Qualified Code(s): M25.511 - Pain in right shoulder Patient Disposition: Home, Self-Care Instructions: Constipation (ED), High Fiber Diet (ED), Plantar Fasciitis (ED), Knee Pain (ED), Shoulder Pain (ED), Plantar Fasciitis Exercises (ED) Additional Instructions: You were seen in the emergency department for multiple complaints. You have had constipation for several months, please take stool softener and MiraLax as needed. If you develop diarrhea, you may discontinue this medication. Please follow attached diet plan for recommendations on how to increase fiber daily. You also have evidence of plantar fasciitis, this is an inflammatory process that causes pain to the bottoms of your feet. Please rest, ice, use supportive shoes, and elevate your feet. Also refer to plantar fasciitis stretches on the discharge paperwork. I am also giving you a referral to Podiatry, call to make an appointment. You also have chronic bilateral knee pain as well as right shoulder pain. Please follow-up with orthopedics for further management of your symptoms. If you develop any new or worsening symptoms including but not limited to fevers, chills, chest pain, shortness of breath, please return for re- evaluation. All your medications as well as further medical problems can be better managed through primary care office, call the [facility] today to set up an appointment. Prescriptions: New naproxen 500 mg tablet 500 mg PO BID Qty: 60 0RF docusate calcium 240 mg capsule 240 mg PO DAILY Qty: 30 0RF polyethylene glycol 3350 [Miralax] 17 gram/dose powder 17 g PO DAILY Qty: 119 0RF No Action benztropine 0.5 mg tablet 0.5 mg PO BID olanzapine 5 mg tablet 5 mg PO BID PRN (Reason: Agitation) olanzapine 10 mg tablet 10 mg PO BID pantoprazole 20 mg tablet,delayed release (DR/EC) 20 mg PO DAILY@0630 cholecalciferol (vitamin D3) [Vitamin D3] 10 mcg (400 unit) tablet 1 tab PO DAILY carbamazepine 400 mg Tablet Extended Release 12 Hr 400 mg PO BID fluoxetine 40 mg Capsule 40 mg PO DAILY nicotine 21 mg/24 hr Patch 24 Hour 1 patch TRANSDERMAL DAILY carbamazepine 200 mg tablet 400 mg PO DAILY Qty: 14 0RF trazodone 100 mg tablet 100 mg PO BEDTIME PRN (Reason: insomnia) Qty: 7 0RF trazodone 100 mg tablet 2 tab PO BEDTIME PRN (Reason: Anxiety) propranolol 20 mg tablet 20 mg PO TID acetaminophen [Tylenol Extra Strength] 500 mg tablet 500 mg PO Q6H PRN (Reason: fever or pain) Qty: 14 0RF lidocaine [Lidoderm] 5 % adhesive patch,medicated 1 patch topical DAILY MDD remove after 12 hours PRN (Reason: pain) Qty: 30 0RF Rx Instructions: leave on most painful area for up to 12 hrs naproxen 500 mg tablet 500 mg PO BID PRN (Reason: pain) 10 Days Qty: 20 0RF cyclobenzaprine 5 mg tablet 5 mg PO Q8H PRN (Reason: pain (scale score 7-10)) 5 Days Qty: 14 0RF Referrals: [facility] [Provider Group] Rema Colldao DPM [Physician] - Center,[facility] [Physician] - Interventions: ED Discharge Assessment Last Done: 05/16/24 08:18 Discharge Date/Time: 05/16/24 08:18 Print Language: Jamaican
[2024-05-16 08:18] VITALS: BP 158/105; PULSE 62; RESP 18; TEMP 36.5; O2SAT 98
== END 2024-05-16 08:18 | disposition home or self-care (01) ==
PROVIDERS: Emergency Provider Emergency Medicine
DX: M72.2 Plantar fascial fibromatosis (principal); K59.00 Constipation, unspecified; M25.511 Pain in right shoulder; M25.561 Pain in right knee; I10 Essential (primary) hypertension; F41.9 Anxiety disorder, unspecified
CPT/HCPCS: 99282; 99283

== ENCOUNTER 2024-06-04 10:01 | Emergency (ER) | payer MEDICARE, MEDICAID, SELFPAY ==
[2024-06-04 10:08] VITALS: BP 139/86; PULSE 60; RESP 16; TEMP 37; O2SAT 98; BMI 29.3
--- NOTE | 2024-06-04 10:53 | ED.GENADULT ---
HPI - General Adult General Chief complaint: Extremity Problem Stated complaint: gout in both feet Time Seen by Provider: 06/04/24 10:53 Source: patient Mode of arrival: ambulatory Limitations: no limitations History of Present Illness ED Provider: Abhishek RUDOLPH narrative: Patient is a 48-year-old male with history of HTN, bipolar disorder, cocaine use disorder presenting to the emergency department with complaint of bilateral foot pain. Was seen in this emergency department on 05/16 and prescribed naproxen which he has since run out of. States he is still running and exercising regularly, boxing and the pain is severe and interfering with his exercises. Patient is wearing Crocs but states that he does have sneakers at home to wear. Has not been icing his feet. Reports difficulty obtaining appointment at [facility] but states that he did recently have his blood pressure medication and Depakote filled and has an adequate supply of these medications. MD complaint: foot pain Onset (ago): day(s) Severity: severe Quality: burning Pain Consistency: constant Relieving factors: rest Exacerbating factors: movement Associated symptoms: denies other symptoms Related Data Home Medications ?Medication ?Instructions ?Recorded ?Confirmed propranolol 20 mg tablet 20 mg PO TID 01/29/21 03/20/21 trazodone 100 mg tablet 2 tab PO BEDTIME PRN Anxiety 01/29/21 03/20/21 benztropine 0.5 mg tablet 0.5 mg PO BID 03/20/21 03/20/21 carbamazepine 400 mg 400 mg PO BID 03/20/21 03/20/21 tablet,extended release,12 hr cholecalciferol (vitamin D3) 10 1 tab PO DAILY 03/20/21 03/20/21 mcg (400 unit) tablet (Vitamin D3) fluoxetine 40 mg capsule 40 mg PO DAILY 03/20/21 03/20/21 nicotine 21 mg/24 hr daily 1 patch transdermal DAILY 03/20/21 03/20/21 transdermal patch olanzapine 10 mg tablet 10 mg PO BID 03/20/21 03/20/21 olanzapine 5 mg tablet 5 mg PO BID PRN Agitation 03/20/21 03/20/21 pantoprazole 20 mg tablet,delayed 20 mg PO DAILY@0630 03/20/21 03/20/21 release Previous Rx's ?Medication ?Instructions ?Recorded carbamazepine 200 mg tablet 400 mg (2 x 200 mg) PO DAILY #14 07/16/21 tabs trazodone 100 mg tablet 100 mg PO BEDTIME PRN insomnia #7 07/16/21 tabs acetaminophen 500 mg tablet 500 mg PO Q6H PRN fever or pain 10/27/23 (Tylenol Extra Strength) #14 tabs cyclobenzaprine 5 mg tablet 5 mg PO Q8H PRN pain (scale score 10/27/23 7-10) 5 days #14 tabs lidocaine 5 % topical patch 1 patch topical DAILY PRN pain #30 10/27/23 (Lidoderm) ea naproxen 500 mg tablet 500 mg PO BID PRN pain 10 days #20 10/27/23 tabs docusate calcium 240 mg capsule 240 mg PO DAILY #30 caps 05/16/24 naproxen 500 mg tablet 500 mg PO BID #60 tabs 05/16/24 polyethylene glycol 3350 17 17 g PO DAILY #119 grams 05/16/24 gram/dose oral powder (Miralax) Allergies Allergy/AdvReac Type Severity Reaction Status Date / Time duloxetine [From CYMBALTA] Allergy Unknown RASH Verified 06/04/24 10:11 shrimp Allergy Anaphylaxis Verified 06/04/24 10:11 Review of Systems Review of Systems: As per HPI. Yes all other systems are reviewed and are negative Constitutional: Constitutional: Reports as per HPI [facility] Past Medical History Medical History Hypertension Anxiety Depression Social History Social History Alcohol intake: current Comment: sleeping Substance Use Type: Marijuana Advance Directives: Yes Advance Directives on File: Yes Advance Directives Date on File: 01/13/21 Physical Exam ED Vital Signs: Vital Signs - 24 hr 06/04/24 10:08 Temperature 98.6 F Pulse Rate 60 Respiratory Rate 16 Blood Pressure 139/86 Pulse Oximetry 98 Oxygen Delivery Method Room Air BMI result Body Mass Index 29.3 Vital signs have been reviewed and appear to be correct. Blood pressure normal. Heart rate normal. Respiratory rate normal. Temperature normal. Oxygen saturation normal. Const General: cooperative, healthy appearing and no acute distress Orientation/consciousness: oriented to person, oriented to place, oriented to time and patient oriented x3 Limitations: no limitations HENMT Head: Yes normocephalic and Yes atraumatic Ears: external ears normal General nose exam: Normal external nose present Face and sinus: Yes face symmetric Mouth: oropharynx normal and moist mucous membranes Throat: Yes uvula midline Eyes Pupils: Equal, round and reactive pupils present Neck Neck: Yes normal visual inspection and Yes supple Resp Effort & Inspection: normal respiratory effort and able to speak in complete sentences Auscultation: clear to auscultation bilaterally Cardio Rate: regular rate Rhythm: regular rhythm Heart sounds: S1 normal heart sound present and S2 normal heart sound present GI Palpation (GI): Soft to palpation and nontender Auscultation: normoactive bowel sounds General: Yes no CVA tenderness Back/Spine/Pelvis Back: no CVA tenderness Skin General skin exam: elasticity normal and turgor normal Neuro General: oriented to person, oriented to place, oriented to time, patient oriented x3, moves all extremities, no focal motor deficits and CN's II-XI intact bilaterally Cranial nerves: Yes Equal, round and reactive pupils present Cognition (Neuro): normal cognition Extrem General: Yes full ROM, Yes no pedal edema and Yes no calf tenderness Right lower extremity: foot Details: normal capillary refill, normal to inspection, tenderness Location: of the plantar foot (over plantar fascia), toes with normal ROM and vascular exam Details: dorsalis pedis pulse present and posterior tibial pulse present Left lower extremity: foot Details: normal capillary refill, normal to inspection, tenderness Location: of the plantar foot (over plantar fascia) and toes with normal ROM Psych Mental Status: mental status grossly normal Affect: normal affect Thought process: Normal thought process present Medical Decision Making Medical Decision Making MDM Narrative: Patient is a 48-year-old male with history of HTN, bipolar disorder, cocaine use disorder presenting to the emergency department with complaint of bilateral foot pain. On exam patient is awake, A+Ox3, VS WNL, afebrile, normal neurological exam without focal deficits, physical exam findings as above. Given reported symptoms and physical exam findings, initial differential includes plantar fasciitis, osteoarthritis, muscle strain. Patient specifically requesting prescription for naproxen and prednisone. Discussed with patient the importance of icing feet to decrease inflammation, wearing supportive shoes such as sneakers, and following up with PCP for PT referral. Return precautions discussed. Patient verbalized understanding of and agreement with plan. Differential Diagnosis Differential Diagnoses: The differential diagnosis associated with the presentation includes As per [facility] External Record Review External record reviewed: Inpatient record, Office record and Outpatient record Prescription Management I considered prescription management with: Pain Medication and Other Discharge Plan Discharge Clinical Impression: Bilateral plantar fasciitis Patient Disposition: Home, Self-Care Instructions: Plantar Fasciitis (ED), Plantar Fasciitis Exercises (ED), R.I.C.E. Treatment (ED) Additional Instructions: You were evaluated in the emergency department today for foot pain which is due to plantar fasciitis. You are being prescribed naproxen to decrease inflammation as well as prednisone which is a steroid. As discussed, you should apply ice to the bottoms of your feet for 10-15 minutes at a time several times daily using caution not to apply ice directly to the skin. We recommend putting water bottles in the freezer and then rolling her foot over the water bottles. You should wear supportive shoes such as sneakers with orthotic support and avoid wearing shoes such as flip-flops or Crocs. Follow-up with your primary care provider to obtain referral to physical therapy. Return to the emergency department new or worsening symptoms. Prescriptions: No Action benztropine 0.5 mg tablet 0.5 mg PO BID olanzapine 5 mg tablet 5 mg PO BID PRN (Reason: Agitation) olanzapine 10 mg tablet 10 mg PO BID pantoprazole 20 mg tablet,delayed release (DR/EC) 20 mg PO DAILY@0630 cholecalciferol (vitamin D3) [Vitamin D3] 10 mcg (400 unit) tablet 1 tab PO DAILY carbamazepine 400 mg Tablet Extended Release 12 Hr 400 mg PO BID fluoxetine 40 mg Capsule 40 mg PO DAILY nicotine 21 mg/24 hr Patch 24 Hour 1 patch TRANSDERMAL DAILY carbamazepine 200 mg tablet 400 mg PO DAILY Qty: 14 0RF trazodone 100 mg tablet 100 mg PO BEDTIME PRN (Reason: insomnia) Qty: 7 0RF trazodone 100 mg tablet 2 tab PO BEDTIME PRN (Reason: Anxiety) propranolol 20 mg tablet 20 mg PO TID acetaminophen [Tylenol Extra Strength] 500 mg tablet 500 mg PO Q6H PRN (Reason: fever or pain) Qty: 14 0RF lidocaine [Lidoderm] 5 % adhesive patch,medicated 1 patch topical DAILY MDD remove after 12 hours PRN (Reason: pain) Qty: 30 0RF Rx Instructions: leave on most painful area for up to 12 hrs naproxen 500 mg tablet 500 mg PO BID PRN (Reason: pain) 10 Days Qty: 20 0RF cyclobenzaprine 5 mg tablet 5 mg PO Q8H PRN (Reason: pain (scale score 7-10)) 5 Days Qty: 14 0RF naproxen 500 mg tablet 500 mg PO BID Qty: 60 0RF docusate calcium 240 mg capsule 240 mg PO DAILY Qty: 30 0RF polyethylene glycol 3350 [Miralax] 17 gram/dose powder 17 g PO DAILY Qty: 119 0RF Print Language: Maltese
[2024-06-04 12:12] VITALS: BP 139/86; PULSE 60; RESP 16; TEMP 37; O2SAT 98
== END 2024-06-04 11:50 | disposition home or self-care (01) ==
PROVIDERS: Emergency Provider Emergency Medicine
DX: M10.071 Idiopathic gout, right ankle and foot (principal); M10.072 Idiopathic gout, left ankle and foot; M72.2 Plantar fascial fibromatosis; F14.10 Cocaine abuse, uncomplicated
CPT/HCPCS: 99282

== ENCOUNTER 2024-06-28 12:49 | Emergency (ER) | payer MEDICARE, MEDICAID, SELFPAY ==
--- NOTE | ~2024-06-28 | XR_ITS ---
EXAMINATION: XR FOOT, RIGHT XR FOOT, LEFT CLINICAL INFORMATION: Atraumatic foot pain. Question gout COMPARISON: None TECHNIQUE: AP, lateral, and oblique views of each foot. FINDINGS: RIGHT FOOT: No fracture or malalignment. Mild to moderate osteoarthritis of the first MTP joint with marginal osteophytes and joint. Mild osteoarthritis in the midfoot and interphalangeal joints. No erosions. No soft tissue calcifications. Small enthesopathic spur is present at the plantar fascial origin on the calcaneus. No erosions. LEFT FOOT: No fracture or malalignment. Mild osteoarthritis 2 moderate osteoarthritis in the first MTP joint. Minimal osteoarthritis in other joints of the forefoot and midfoot. Bone mineralization is normal. No soft tissue calcifications. Small enthesopathic spur is present at the plantar fascial origin on the calcaneus. No erosions. XR/XR foot RT min 3V IMPRESSION: 1. No specific radiographic findings of gout in the feet. 2. 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 Mild osteoarthritis in other joints of the forefoot and midfoot.
--- NOTE | ~2024-06-28 | XR_ITS ---
EXAMINATION: XR FOOT, RIGHT XR FOOT, LEFT CLINICAL INFORMATION: Atraumatic foot pain. Question gout COMPARISON: None TECHNIQUE: AP, lateral, and oblique views of each foot. FINDINGS: RIGHT FOOT: No fracture or malalignment. Mild to moderate osteoarthritis of the first MTP joint with marginal osteophytes and joint. Mild osteoarthritis in the midfoot and interphalangeal joints. No erosions. No soft tissue calcifications. Small enthesopathic spur is present at the plantar fascial origin on the calcaneus. No erosions. LEFT FOOT: No fracture or malalignment. Mild osteoarthritis 2 moderate osteoarthritis in the first MTP joint. Minimal osteoarthritis in other joints of the forefoot and midfoot. Bone mineralization is normal. No soft tissue calcifications. Small enthesopathic spur is present at the plantar fascial origin on the calcaneus. No erosions. XR/XR foot LT min 3V IMPRESSION: 1. No specific radiographic findings of gout in the feet. 2. 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 Mild osteoarthritis in other joints of the forefoot and midfoot.
[2024-06-28 13:05] VITALS: BP 173/102; PULSE 72; RESP 18; TEMP 37.4; O2SAT 97; BMI 29.8
--- NOTE | 2024-06-28 13:05 | ED_ITS ---
HPI - General Adult General Chief complaint: Extremity Injury, Lower Stated complaint: gout in both feet Time Seen by Provider: 06/28/24 15:03 Source: patient Mode of arrival: ambulatory Limitations: no limitations History of Present Illness ED Provider: Og Sanchez PA-C HPI narrative: 48-year-old male with history of depression, anxiety, bipolar disorder, plantar fasciitis who presents to the ER for evaluation of ongoing bilateral feet pain. Patient was seen here twice in the ER in the last couple of months for similar pain. He reports that the pain is located on the bottom of his feet bilaterally, radiates to his 1st MTP and up his legs. It is worse in the mornings and then tends to be better throughout the day. He reports the anti- inflammatories that were previously prescribed to him helped with pain. He denies any recent injury or trauma. Denies any redness or swelling of his feet. He also reports having chronic constipation issues, only having 1 bowel movement per day with intermittent cramping. He relaxed with minimal relief. No nausea or vomiting. He would like prescription for constipation. He also would like a refill of his propranolol. He is not due to see his PCP until August. MD complaint: Bilateral feet pain Onset (ago): month(s) Location: left, right and lower extremity Radiation: proximal Severity: severe Severity scale (1-10): 10 Quality: aching Pain Consistency: constant Treatments prior to arrival: none Related Data Home Medications ?Medication ?Instructions ?Recorded ?Confirmed propranolol 20 mg tablet 20 mg PO TID 01/29/21 03/20/21 trazodone 100 mg tablet 2 tab PO BEDTIME PRN Anxiety 01/29/21 03/20/21 benztropine 0.5 mg tablet 0.5 mg PO BID 03/20/21 03/20/21 carbamazepine 400 mg 400 mg PO BID 03/20/21 03/20/21 tablet,extended release,12 hr cholecalciferol (vitamin D3) 10 1 tab PO DAILY 03/20/21 03/20/21 mcg (400 unit) tablet (Vitamin D3) fluoxetine 40 mg capsule 40 mg PO DAILY 03/20/21 03/20/21 nicotine 21 mg/24 hr daily 1 patch transdermal DAILY 03/20/21 03/20/21 transdermal patch olanzapine 10 mg tablet 10 mg PO BID 03/20/21 03/20/21 olanzapine 5 mg tablet 5 mg PO BID PRN Agitation 03/20/21 03/20/21 pantoprazole 20 mg tablet,delayed 20 mg PO DAILY@0630 03/20/21 03/20/21 release Previous Rx's ?Medication ?Instructions ?Recorded carbamazepine 200 mg tablet 400 mg (2 x 200 mg) PO DAILY #14 07/16/21 tabs trazodone 100 mg tablet 100 mg PO BEDTIME PRN insomnia #7 07/16/21 tabs acetaminophen 500 mg tablet 500 mg PO Q6H PRN fever or pain 10/27/23 (Tylenol Extra Strength) #14 tabs cyclobenzaprine 5 mg tablet 5 mg PO Q8H PRN pain (scale score 10/27/23 7-10) 5 days #14 tabs lidocaine 5 % topical patch 1 patch topical DAILY PRN pain #30 10/27/23 (Lidoderm) ea naproxen 500 mg tablet 500 mg PO BID PRN pain 10 days #20 10/27/23 tabs docusate calcium 240 mg capsule 240 mg PO DAILY #30 caps 05/16/24 naproxen 500 mg tablet 500 mg PO BID #60 tabs 05/16/24 polyethylene glycol 3350 17 17 g PO DAILY #119 grams 05/16/24 gram/dose oral powder (Miralax) naproxen 500 mg tablet 500 mg PO BID PRN pain #14 tabs 06/12/24 magnesium hydroxide 400 mg/5 mL 5 ml PO BID PRN constipation #355 06/28/24 oral suspension (Milk of Magnesia) mL naproxen 500 mg tablet 500 mg PO BID PRN pain #20 tabs 06/28/24 propranolol 10 mg tablet 10 mg PO BID #60 tabs 06/28/24 Allergies Allergy/AdvReac Type Severity Reaction Status Date / Time duloxetine [From CYMBALTA] Allergy Unknown RASH Verified 06/28/24 13:07 shrimp Allergy Anaphylaxis Verified 06/28/24 13:07 Review of Systems 2 Review of Systems: Yes all other systems are reviewed and are negative FOR[facility]LY [facility] Past Medical History Medical History Hypertension Anxiety Depression Social History Social History Alcohol intake: current Comment: sleeping Substance Use Type: Marijuana Advance Directives: Yes Advance Directives on File: Yes Advance Directives Date on File: 01/13/21 Physical Exam ED Vital Signs: Vital Signs - 24 hr 06/28/24 13:05 06/28/24 16:03 Temperature 99.3 F 99.3 F Pulse Rate 72 72 Respiratory Rate 18 18 Blood Pressure 173/102 H 173/102 H Pulse Oximetry 97 97 Oxygen Delivery Method Room Air Room Air BMI result Body Mass Index 29.8 Appearance: Alert. Oriented X3. No acute distress. HEENT: normal external inspection Neck: Normal inspection. Neck supple. CVS: Normal heart rate and rhythm. Pulses normal. Respiratory: No respiratory distress. Breath sounds normal. Abdomen: Soft and nontender. +BS x4 Skin: Skin warm and dry. Normal skin color. Normal skin turgor. No rashes. Extremities: No lower extremity edema. bilateral feet with prominence and tenderness of 1st MTP, no erythema or warmth. FROM of the toes. nontender metatarsalas and ankles. plantar aspects of the feet are normal to inspection, low arches bilaterally. Neuro/psych: Oriented X 3. No motor deficit. No sensory deficit. CN II-XII intact. Normal speech and cognition. steady gait Course Course Course Narrative: This is a Rapid Medical Examination (RME) performed by Shelley Clinton PA-C in triage. Full HPI, ROS, assessment and treatment plan per primary provider in the Main ED. 48 yo male hx of HTN, bipolar disorder, cocaine use disorder here for eval of bilateral foot pain. believes it's a gout flare. not on meds for this at present. seen here on 06/04, diagnosed w/ plantar facsiitis. doing the prescribed exercises at home w/o relief. Plan: labs, xrs ordered Medical Decision Making Medical Decision Making MDM Narrative: 48-year-old male presents the ER for the 3rd time for evaluation of bilateral feet pain. Pain is located on the bottom of his feet as well as the 1st MTPs. He has bilateral bunions with tenderness. No evidence of gout or septic joint. He reports the pain is located on the bottom of his feet, worse in the mornings and tends to get better throughout the day. This is consistent with plantar fasciitis. He improved in the past with NSAIDs. Will encourage NSAIDs again. We discussed the importance of following up with outpatient providers including PCP, possible plating and point assembly supervisor, orthopedics or pain management. He expressed understanding. Will prescribe refill of his propranolol, last dose was yesterday. We also discussed [id number] options for chronic constipation. His abdomen is soft and nontender today. No need for abdominal imaging. He is stable for discharge home with outpatient follow-up. Differential Diagnosis Differential Diagnoses: The differential diagnosis associated with the presentation includes Plantar fasciitis, gout, osteoarthritis, rheumatoid arthritis, inflammatory arthritis, no evidence of septic joint Lab Data MDM Lab Attestation statement: I reviewed the patient's lab results. Mild leukocytosis, no major metabolic derangement 06/28/24 14:02 06/28/24 14:02 Labs: Lab Results 06/28/24 06/28/24 Range/Units 14:01 14:02 WBC 11.4 H (4.8-10.8) X10*3/uL RBC 4.36 L (4.60-5.80) X10*6/uL Hgb 14.0 (14.0-18.0) g/dl Hct 40.7 L (42.0-52.0) % MCV 93.3 (80.0-98.0) fL MCH 32.1 (27.0-33.0) pg MCHC 34.4 (31.0-36.0) g/dl RDW 12.5 (11.0-16.0) % Plt Count 303 (160-400) X10*3/uL MPV 9.1 L (9.4-12.4) fL Immature Gran % (Auto) 0.3 (0.0-0.4) % Neut % (Auto) 59.4 (45-73) % Lymph % (Auto) 32.3 (20-40) % [place] % (Auto) 5.9 (2-11) % Eos % (Auto) 1.5 (0-4) % Baso % (Auto) 0.6 (0-2) % Lymph # (Auto) 3.7 (1.2-4.9) X10*3/uL [place] # (Auto) 0.7 (0.1-1.2) X10*3/uL Eos # (Auto) 0.2 (0.0-0.4) X10*3/uL Baso # (Auto) 0.1 (0.0-0.2) X10*3/uL Abs Immat Gran (auto) 0.03 (0.00-0.03) X10*3/uL Absolute Neuts (auto) 6.8 (2.0-8.3) x10*3/uL Absolute Nucleated RBC 0.000 (0.0-0.012) X10*3/uL Nucleated RBC % (auto) 0.0 (0.0-0.2) /100WBC Sodium 140 (135-145) mmol/L Potassium 4.3 (3.3-5.1) mmol/L Chloride 104 (96-108) mmol/L Carbon Dioxide 28 (22-29) mmol/L Anion Gap 12 (12-20) BUN 17 H (9-16) mg/dL Creatinine 1.03 (0.5-1.4) mg/dL Estim Creat Clear Calc 104.1 Estimated GFR > 60 Random Glucose 92 (60-115) mg/dL Uric Acid 6.1 (3.4-7.0) mg/dL Calcium 10.2 (8.4-10.2) mg/dL Total Bilirubin 0.6 (0.0-1.0) mg/dL AST 37 (5-37) U/L ALT 37 (0-40) U/L Alkaline Phosphatase 66 (39-117) U/L Total Protein 7.0 (6.5-8.0) g/dL Albumin 3.9 (3.5-5.0) g/dL Hold Yellow Top See Note Independent Interpretation I performed an independent interpretation of an: Plain X-Ray Interpretation: No evidence of acute fracture, agree with radiology read Radiology Impression Discussion of test interpretation with radiology: I have reviewed the radiologist's reading. Radiologist Impression: EXAMINATION: XR FOOT, RIGHT XR FOOT, LEFT CLINICAL INFORMATION: Atraumatic foot pain. Question gout COMPARISON: None TECHNIQUE: AP, lateral, and oblique views of each foot. FINDINGS: RIGHT FOOT: No fracture or malalignment. Mild to moderate osteoarthritis of the first MTP joint with marginal osteophytes and joint. Mild osteoarthritis in the midfoot and interphalangeal joints. No erosions. No soft tissue calcifications. Small enthesopathic spur is present at the plantar fascial origin on the calcaneus. No erosions. LEFT FOOT: No fracture or malalignment. Mild osteoarthritis 2 moderate osteoarthritis in the first MTP joint. Minimal osteoarthritis in other joints of the forefoot and midfoot. Bone mineralization is normal. No soft tissue calcifications. Small enthesopathic spur is present at the plantar fascial origin on the calcaneus. No erosions. XR/XR foot LT min 3V IMPRESSION: 1. No specific radiographic findings of gout in the feet. 2. 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 Mild osteoarthritis in other joints of the forefoot and midfoot. External Record Review External record reviewed: Outpatient record, Prior outpatient labs and Prior outpatient radiology Prescription Management I considered prescription management with: Pain Medication Social Determinants Patient?s care significantly limited by Social Determinants of Health including: Other Social Determinant of Health (No access to primary care provider in a timely fashion) Critical Care Time Critical Care Time Critical Care Time: No Discharge Plan Discharge Clinical Impression: Bilateral plantar fasciitis Patient Disposition: Home, Self-Care Instructions: Plantar Fasciitis (ED), Plantar Fasciitis Exercises (ED) Additional Instructions: Your x-ray today showed mild to moderate osteoarthritis of the 1st MTP joints in your feet. Take the prescribed anti-inflammatory for this. Also recommend taking Tylenol 1000 mg every 6-8 hours around the clock. Recommend getting Dr. Parish's inserts for your feet to help with plantar fasciitis. Recommend following up with a plating and point assembly supervisor, pain management as well as Orthopedics for further evaluation and treatment of your pain. Name and numbers below. Call for an appointment. Refill of your propranolol has been sent to your pharmacy. Milk of magnesia is a laxative that you can use as needed for constipation. You can also use [id number] MiraLax, senna, Colace as needed. Increase your fiber intake and drink plenty of water. Follow-up with primary care doctor for these issues. If you develop new or worsening symptoms call 911 or come back to the ER for further evaluation. Prescriptions: New propranolol 10 mg tablet 10 mg PO BID Qty: 60 1RF magnesium hydroxide [Milk of Magnesia] 400 mg/5 mL suspension 5 ml PO BID PRN (Reason: constipation) Qty: 355 0RF naproxen 500 mg tablet 500 mg PO BID PRN (Reason: pain) Qty: 20 0RF No Action benztropine 0.5 mg tablet 0.5 mg PO BID olanzapine 5 mg tablet 5 mg PO BID PRN (Reason: Agitation) olanzapine 10 mg tablet 10 mg PO BID pantoprazole 20 mg tablet,delayed release (DR/EC) 20 mg PO DAILY@0630 cholecalciferol (vitamin D3) [Vitamin D3] 10 mcg (400 unit) tablet 1 tab PO DAILY carbamazepine 400 mg Tablet Extended Release 12 Hr 400 mg PO BID fluoxetine 40 mg Capsule 40 mg PO DAILY nicotine 21 mg/24 hr Patch 24 Hour 1 patch TRANSDERMAL DAILY carbamazepine 200 mg tablet 400 mg PO DAILY Qty: 14 0RF trazodone 100 mg tablet 100 mg PO BEDTIME PRN (Reason: insomnia) Qty: 7 0RF trazodone 100 mg tablet 2 tab PO BEDTIME PRN (Reason: Anxiety) propranolol 20 mg tablet 20 mg PO TID acetaminophen [Tylenol Extra Strength] 500 mg tablet 500 mg PO Q6H PRN (Reason: fever or pain) Qty: 14 0RF lidocaine [Lidoderm] 5 % adhesive patch,medicated 1 patch topical DAILY MDD remove after 12 hours PRN (Reason: pain) Qty: 30 0RF Rx Instructions: leave on most painful area for up to 12 hrs naproxen 500 mg tablet 500 mg PO BID PRN (Reason: pain) 10 Days Qty: 20 0RF cyclobenzaprine 5 mg tablet 5 mg PO Q8H PRN (Reason: pain (scale score 7-10)) 5 Days Qty: 14 0RF naproxen 500 mg tablet 500 mg PO BID Qty: 60 0RF docusate calcium 240 mg capsule 240 mg PO DAILY Qty: 30 0RF polyethylene glycol 3350 [Miralax] 17 gram/dose powder 17 g PO DAILY Qty: 119 0RF naproxen 500 mg tablet 500 mg PO BID PRN (Reason: pain) Qty: 14 0RF Referrals: [facility] Surgeons [Provider Group] [facility] Pain [facility] [Provider Group] Jonnie Paige MD [Physician] - Interventions: ED Discharge Assessment Last Done: 06/28/24 16:03 Discharge Date/Time: 06/28/24 16:04 Print Language: Upper Sorbian
[2024-06-28 14:06] LABS: MANUAL DIFF FLAG NO
[2024-06-28 14:11] LABS: Basophils Absolute Auto 0.1 X10*3/uL (0.0-0.2); Basophils Percent Auto 0.6 % (0-2); Eosinophils Absolute Auto 0.2 X10*3/uL (0.0-0.4); Eosinophils Percent Auto 1.5 % (0-4); Hematocrit 40.7 % (42.0-52.0); Imm Gran Abs Auto 0.03 X10*3/uL (0.00-0.03); Imm Gran Pct Auto 0.3 % (0.0-0.4); Lymphocytes Absolute Auto 3.7 X10*3/uL (1.2-4.9); Lymphocytes Percent Auto 32.3 % (20-40); Mean Corpuscular HGB Conc 34.4 g/dl (31.0-36.0); Mean Corpuscular Hemoglobin 32.1 pg (27.0-33.0); Mean Corpuscular Volume 93.3 fL (80.0-98.0); Mean Platelet Volume 9.1 fL (9.4-12.4); Monocytes Absolute Auto 0.7 X10*3/uL (0.1-1.2); Monocytes Percent Auto 5.9 % (2-11); Neutrophils Absolute Auto 6.8 x10*3/uL (2.0-8.3); Neutrophils Percent Auto 59.4 % (45-73); Platelet Count 303 X10*3/uL (160-400); Red Blood Count 4.36 X10*6/uL (4.60-5.80); Red Cell Distribution Width 12.5 % (11.0-16.0); White Blood Count 11.4 X10*3/uL (4.8-10.8)
[2024-06-28 14:27] LABS: Alanine Aminotransferase 37 U/L (0-40); Albumin Level 3.9 g/dL (3.5-5.0); Alkaline Phosphatase 66 U/L (39-117); Anion Gap 12 (12-20); Aspartate Amino Transferase 37 U/L (5-37); Bilirubin Total 0.6 mg/dL (0.0-1.0); Blood Urea Nitrogen 17 mg/dL (9-16); Calcium 10.2 mg/dL (8.4-10.2); Carbon Dioxide 28 mmol/L (22-29); Chloride 104 mmol/L (96-108); Creatinine Clr Calc Pharmacy 104.1; Estimated Glomerular Filt Rate > 60; Glucose Random 92 mg/dL (60-115); Potassium 4.3 mmol/L (3.3-5.1); Sodium 140 mmol/L (135-145); Uric Acid 6.1 mg/dL (3.4-7.0)
[2024-06-28 16:03] VITALS: BP 173/102; PULSE 72; RESP 18; TEMP 37.4; O2SAT 97
== END 2024-06-28 16:04 | disposition home or self-care (01) ==
PROVIDERS: Physician Assistant Medical; Emergency Provider Student in an Organized Health Care Education/Training Program
DX: M72.2 Plantar fascial fibromatosis (principal); M79.671 Pain in right foot; M79.672 Pain in left foot; I10 Essential (primary) hypertension; Z79.899 Other long term (current) drug therapy
CPT/HCPCS: 36415; 73630; 80053; 84550; 85025; 99282; 99283

== ENCOUNTER 2024-06-30 16:56 | Emergency (ER) | payer MEDICARE, MEDICAID, SELFPAY ==
[2024-06-30 17:07] VITALS: BP 182/95; BP 210/00; PULSE 114; PULSE 122; RESP 18; O2SAT 98; BMI 29.0
--- NOTE | 2024-06-30 17:07 | ED.OVERDOSE ---
HPI - Overdose General Stated Complaint: suspected OD, 4mg narcan given Time Seen by Provider: 06/30/24 17:02 Source: patient Mode of arrival: EMS Limitations: no limitations History of Present Illness ED Provider: Dr. Carlos Acosta HPI Narrative: 48-year-old male with a history of hypertension, depression, anxiety, bipolar disorder, cocaine use disorder, opiate use disorder who presents emergency department for evaluation of unintentional overdose. According to EMS the patient was found unresponsive on a sidewalk by a bystander. The bystander called 911 and administered intranasal Narcan to the patient. When the EMS crew arrived on the scene the patient was waking up, he was diaphoretic, he was placed on a stretcher and transported to the emergency department. On arrival to the emergency department the patient was awake and alert and does not want to stay for further treatment. The patient told me that he did use intranasal heroin 1 bag. He does not remember what happened after using. He currently has no complaints. He was upset because his bag and his phone were left at the scene. Related Data Home Medications ?Medication ?Instructions ?Recorded ?Confirmed propranolol 20 mg tablet 20 mg PO TID 01/29/21 03/20/21 trazodone 100 mg tablet 2 tab PO BEDTIME PRN Anxiety 01/29/21 03/20/21 benztropine 0.5 mg tablet 0.5 mg PO BID 03/20/21 03/20/21 carbamazepine 400 mg 400 mg PO BID 03/20/21 03/20/21 tablet,extended release,12 hr cholecalciferol (vitamin D3) 10 1 tab PO DAILY 03/20/21 03/20/21 mcg (400 unit) tablet (Vitamin D3) fluoxetine 40 mg capsule 40 mg PO DAILY 03/20/21 03/20/21 nicotine 21 mg/24 hr daily 1 patch transdermal DAILY 03/20/21 03/20/21 transdermal patch olanzapine 10 mg tablet 10 mg PO BID 03/20/21 03/20/21 olanzapine 5 mg tablet 5 mg PO BID PRN Agitation 03/20/21 03/20/21 pantoprazole 20 mg tablet,delayed 20 mg PO DAILY@0630 03/20/21 03/20/21 release Previous Rx's ?Medication ?Instructions ?Recorded carbamazepine 200 mg tablet 400 mg (2 x 200 mg) PO DAILY #14 07/16/21 tabs trazodone 100 mg tablet 100 mg PO BEDTIME PRN insomnia #7 07/16/21 tabs acetaminophen 500 mg tablet 500 mg PO Q6H PRN fever or pain 10/27/23 (Tylenol Extra Strength) #14 tabs cyclobenzaprine 5 mg tablet 5 mg PO Q8H PRN pain (scale score 10/27/23 7-10) 5 days #14 tabs lidocaine 5 % topical patch 1 patch topical DAILY PRN pain #30 10/27/23 (Lidoderm) ea naproxen 500 mg tablet 500 mg PO BID PRN pain 10 days #20 10/27/23 tabs docusate calcium 240 mg capsule 240 mg PO DAILY #30 caps 05/16/24 naproxen 500 mg tablet 500 mg PO BID #60 tabs 05/16/24 polyethylene glycol 3350 17 17 g PO DAILY #119 grams 05/16/24 gram/dose oral powder (Miralax) naproxen 500 mg tablet 500 mg PO BID PRN pain #14 tabs 06/12/24 magnesium hydroxide 400 mg/5 mL 5 ml PO BID PRN constipation #355 06/28/24 oral suspension (Milk of Magnesia) mL naproxen 500 mg tablet 500 mg PO BID PRN pain #20 tabs 06/28/24 propranolol 10 mg tablet 10 mg PO BID #60 tabs 06/28/24 Allergies Allergy/AdvReac Type Severity Reaction Status Date / Time duloxetine [From CYMBALTA] Allergy Unknown RASH Verified 06/30/24 17:09 shrimp Allergy Anaphylaxis Verified 06/30/24 17:09 Review of Systems Review of Systems: Yes all other systems are reviewed and are negative [facility] Past Medical History Medical History Hypertension Anxiety Depression Social History Social History Alcohol intake: current Comment: sleeping Substance Use Type: Marijuana Advance Directives Date on File: 01/13/21 Physical Exam Vital Signs: Exam: General: Awake, alert in no distress. The patient's shirt is wet secondary to diaphoresis Head: Normocephalic, atraumatic EENT: PERRL, Lids normal, sclera normal, conjunctiva normal, nose normal , ears normal, throat without erythema or exudates Neck: Supple, no adenopathy Lung: breath sounds symmetric, no wheezing, rales or rhonchi Chest: symmetric movement, nontender Heart: regular rate and rhythm, normal S1, S2 no murmurs or rubs Abdomen: soft, non-tender, nondistended, normal bowel sounds Back: no vertebral tenderness, no CVAT Extremities: no deformities, moves all extremities symmetrically Neuro: Awake, alert, oriented, normal speech, cranial nerves intact, moves all extremities symmetrically Psych: Patient was upset and anxious about his belongings which were left at the scene, he denied suicidal, homicidal ideation. Medical Decision Making Medical Decision Making MDM Narrative: 48-year-old male with a history of hypertension, depression, anxiety, bipolar disorder, cocaine use disorder, opiate use disorder who presents emergency department for evaluation of unintentional overdose, patient received intranasal Narcan by a bystander and when EMS arrived on the scene he was waking up but diaphoretic. On arrival to the emergency department he is awake and alert and states he does not want stay in the emergency department in his anxious about his belongings that were left at the scene. Physical examination was unremarkable. Differential diagnosis: ?Includes but is not limited to heroin overdose, fentanyl overdose, methadone overdose, electrolyte abnormalities, anemia Course: 17:14 Patient was awake and alert and able to answer questions appropriately. His physical examination was unremarkable and there was no evidence for head trauma. Patient is capable of understanding consequences of refusing observation here in the emergency department and the fact that he may have repeat narcosis due to a long-acting narcotic that he may have an used intranasally. The patient was discharged to home. I did offer him a consult with our recovery team however he refused. The patient was discharged home with intranasal Narcan and instructions on how to use it. He was also told that he could return to the emergency department and we can get him help with his addiction if he changed his mind. Admission/Observation Consideration of admission/observation: Escalation of care including admission/observation considered Independent Historian Clinical information obtained from an independent historian. History obtained from or confirmed by: EMS Prescription Management I considered prescription management with: Other (Discharged home with intranasal Narcan) Discharge Plan Discharge Clinical Impression: Narcotic overdose Qualifiers: Encounter type: initial encounter Injury intent: accidental or unintentional Qualified Code(s): T40.601A - Poisoning by unspecified narcotics, accidental (unintentional), initial encounter Patient Disposition: Home, Self-Care Additional Instructions: You accidentally overdosed on a narcotic. You were found on the street and the person that found you gave you a dose of intranasal Narcan. By the time the parking assistant arrived on the scene you were awake. Your are being discharged home with intranasal Narcan. If you are going to continue to use heroin, you should make sure that there is a sober person with you that is not using drugs and that this person can administer intranasal Narcan in the event that you stop breathing. Follow-up with your doctor in 2 days. Please return to the emergency department if your symptoms get worse or if you develop any symptoms that are concerning to you. If you change your mind and want to get some help with your narcotic addiction, please return to the emergency department and we can get you some help. You can also follow-up with our [facility]. Prescriptions: No Action benztropine 0.5 mg tablet 0.5 mg PO BID olanzapine 5 mg tablet 5 mg PO BID PRN (Reason: Agitation) olanzapine 10 mg tablet 10 mg PO BID pantoprazole 20 mg tablet,delayed release (DR/EC) 20 mg PO DAILY@0630 cholecalciferol (vitamin D3) [Vitamin D3] 10 mcg (400 unit) tablet 1 tab PO DAILY carbamazepine 400 mg Tablet Extended Release 12 Hr 400 mg PO BID fluoxetine 40 mg Capsule 40 mg PO DAILY nicotine 21 mg/24 hr Patch 24 Hour 1 patch TRANSDERMAL DAILY carbamazepine 200 mg tablet 400 mg PO DAILY Qty: 14 0RF trazodone 100 mg tablet 100 mg PO BEDTIME PRN (Reason: insomnia) Qty: 7 0RF trazodone 100 mg tablet 2 tab PO BEDTIME PRN (Reason: Anxiety) propranolol 20 mg tablet 20 mg PO TID acetaminophen [Tylenol Extra Strength] 500 mg tablet 500 mg PO Q6H PRN (Reason: fever or pain) Qty: 14 0RF lidocaine [Lidoderm] 5 % adhesive patch,medicated 1 patch topical DAILY MDD remove after 12 hours PRN (Reason: pain) Qty: 30 0RF Rx Instructions: leave on most painful area for up to 12 hrs naproxen 500 mg tablet 500 mg PO BID PRN (Reason: pain) 10 Days Qty: 20 0RF cyclobenzaprine 5 mg tablet 5 mg PO Q8H PRN (Reason: pain (scale score 7-10)) 5 Days Qty: 14 0RF naproxen 500 mg tablet 500 mg PO BID Qty: 60 0RF docusate calcium 240 mg capsule 240 mg PO DAILY Qty: 30 0RF polyethylene glycol 3350 [Miralax] 17 gram/dose powder 17 g PO DAILY Qty: 119 0RF naproxen 500 mg tablet 500 mg PO BID PRN (Reason: pain) Qty: 14 0RF propranolol 10 mg tablet 10 mg PO BID Qty: 60 1RF magnesium hydroxide [Milk of Magnesia] 400 mg/5 mL suspension 5 ml PO BID PRN (Reason: constipation) Qty: 355 0RF naproxen 500 mg tablet 500 mg PO BID PRN (Reason: pain) Qty: 20 0RF Interventions: ED Discharge Assessment Last Done: 06/30/24 17:13 Print Language: [place]ill[place]
--- NOTE | 2024-06-30 17:11 | PC.NURSE ---
Pt presents to ED via EMS after being found the in community on the sidewalk. Pt is agitated upon arrival demanding he is in need of his personal belongings--not present with Pt and EMS reports they did not see any belongings. Pts agitations increases, Pt uses foul language, refuses to get off EMS stretcher and is refusing care. Dr. Acosta at bedside for eval and clears Pt for d/c and given Narcan to keep on person. Pt is A&Ox3, VSS.
[2024-06-30 17:13] VITALS: BP 182/95; PULSE 114; RESP 18; TEMP -17.7; TEMP 0; O2SAT 98
[2024-06-30] MEDS: Naloxone HCl Nasal TAKE HOME 4 MG SPRAY 8 MG NOSTRILALT (17:17)
== END 2024-06-30 17:19 | disposition home or self-care (01) ==
LOC: HO.ED 17:12
PROVIDERS: Emergency Provider Emergency Medicine Emergency Medical Services
DX: T40.1X1A Poisoning by heroin, accidental (unintentional), initial encounter (principal); R40.4 Transient alteration of awareness; Y92.480 Sidewalk as the place of occurrence of the external cause; Z79.899 Other long term (current) drug therapy; I10 Essential (primary) hypertension; F41.9 Anxiety disorder, unspecified; F31.9 Bipolar disorder, unspecified; F14.20 Cocaine dependence, uncomplicated
CPT/HCPCS: 99282

== ENCOUNTER 2024-07-14 21:28 | Emergency (ER) | payer MEDICARE, MEDICAID, SELFPAY ==
[2024-07-14 21:39] VITALS: BP 124/68; PULSE 46; RESP 18; TEMP 36.6; O2SAT 98; BMI 29.0
--- NOTE | 2024-07-14 22:59 | ED_ITS ---
HPI - General Adult General Chief complaint: Extremity Injury, Lower Stated complaint: both feet pain Time Seen by Provider: 07/14/24 22:59 Source: patient Mode of arrival: ambulatory Limitations: no limitations History of Present Illness ED Provider: Kayla Jennings PA-C HPI narrative: Patient is a 48 year old assigned male at with a history of HTN, bilateral plantar fasciitis, depression, and bipolar disorder presenting to the emergency department today with bilateral foot pain and requesting medication refills. Patient states that over the last couple weeks he has had bilateral foot pain and has been out of his medications due to an insurance issue. Patient denies any dizziness, lightheadedness, abdominal pain, nausea, vomiting, fever, chills, blurry vision, double vision, loss of vision, chest pain, difficulty breathing, shortness of breath, back pain, night sweats, pain with urination, increased urinary frequency, increased urinary urgency, blood in his urine or stool, syncope or a near syncopal episode, recent trauma or falls, bowel incontinence, bladder incontinence, or any other complaints at this time. Onset (ago): week(s) Location: left, right and lower extremity Relieving factors: none Exacerbating factors: none Associated symptoms: denies other symptoms Treatments prior to arrival: none Related Data Home Medications ?Medication ?Instructions ?Recorded ?Confirmed propranolol 20 mg tablet 20 mg PO TID 01/29/21 03/20/21 trazodone 100 mg tablet 2 tab PO BEDTIME PRN Anxiety 01/29/21 03/20/21 benztropine 0.5 mg tablet 0.5 mg PO BID 03/20/21 03/20/21 carbamazepine 400 mg 400 mg PO BID 03/20/21 03/20/21 tablet,extended release,12 hr cholecalciferol (vitamin D3) 10 1 tab PO DAILY 03/20/21 03/20/21 mcg (400 unit) tablet (Vitamin D3) fluoxetine 40 mg capsule 40 mg PO DAILY 03/20/21 03/20/21 nicotine 21 mg/24 hr daily 1 patch transdermal DAILY 03/20/21 03/20/21 transdermal patch olanzapine 10 mg tablet 10 mg PO BID 03/20/21 03/20/21 olanzapine 5 mg tablet 5 mg PO BID PRN Agitation 03/20/21 03/20/21 pantoprazole 20 mg tablet,delayed 20 mg PO DAILY@0630 03/20/21 03/20/21 release Previous Rx's ?Medication ?Instructions ?Recorded carbamazepine 200 mg tablet 400 mg (2 x 200 mg) PO DAILY #14 07/16/21 tabs trazodone 100 mg tablet 100 mg PO BEDTIME PRN insomnia #7 07/16/21 tabs acetaminophen 500 mg tablet 500 mg PO Q6H PRN fever or pain 10/27/23 (Tylenol Extra Strength) #14 tabs cyclobenzaprine 5 mg tablet 5 mg PO Q8H PRN pain (scale score 10/27/23 7-10) 5 days #14 tabs lidocaine 5 % topical patch 1 patch topical DAILY PRN pain #30 10/27/23 (Lidoderm) ea naproxen 500 mg tablet 500 mg PO BID PRN pain 10 days #20 10/27/23 tabs docusate calcium 240 mg capsule 240 mg PO DAILY #30 caps 05/16/24 naproxen 500 mg tablet 500 mg PO BID #60 tabs 05/16/24 polyethylene glycol 3350 17 17 g PO DAILY #119 grams 05/16/24 gram/dose oral powder (Miralax) naproxen 500 mg tablet 500 mg PO BID PRN pain #14 tabs 06/12/24 magnesium hydroxide 400 mg/5 mL 5 ml PO BID PRN constipation #355 06/28/24 oral suspension (Milk of Magnesia) mL naproxen 500 mg tablet 500 mg PO BID PRN pain #20 tabs 06/28/24 propranolol 10 mg tablet 10 mg PO BID #60 tabs 06/28/24 naproxen 500 mg tablet 500 mg PO BID 7 days #14 tabs 07/14/24 pantoprazole 20 mg tablet,delayed 20 mg PO DAILY #14 tabs 07/14/24 release propranolol 20 mg tablet 20 mg PO TID #30 tabs 07/14/24 Allergies Allergy/AdvReac Type Severity Reaction Status Date / Time duloxetine [From CYMBALTA] Allergy Unknown RASH Verified 07/14/24 21:40 shrimp Allergy Anaphylaxis Verified 07/14/24 21:40 Review of Systems Constitutional: Constitutional: Reports no additional constitutional complaints, Denies chills, Denies fever(s) and Denies night sweats Eyes: Eyes: Reports no additional eye complaints, Denies blurry vision, Denies change in vision, Denies diplopia, Denies eye discharge, Denies loss of vision and Denies eye pain ENT: Denies dizziness Cardiovascular: Cardiovascular: Reports no additional cardiovascular complaints, Denies chest pain, Denies lightheadedness, Denies Loss of Consciousness and Denies dyspnea Respiratory: Respiratory: Reports no additional respiratory complaints and Denies dyspnea Gastrointestinal: Gastrointestinal: Reports no additional gastrointestinal complaints, Denies abdominal pain, Denies melena, Denies hematochezia, Denies change in bowel habits and Denies change in stool character Genitourinary: Genitourinary: Reports no additional male genitourinary complaints, Denies hematuria, Denies oliguria, Denies difficulty urinating, Denies dysuria, Denies urinary frequency, Denies urinary hesitancy, Denies urinary incontinence and Denies urinary urgency Musculoskeletal: Musculoskeletal: Reports no additional musculoskeletal complaints, Denies numbness and Denies tingling Comments: bilateral foot pain Neurologic: Denies dizziness, Denies loss of vision, Denies numbness and Denies tingling Psychiatric: Psychiatric: Reports no additional psychiatric complaints Endocrine: Endocrine: Reports no additional endocrine complaints Hematologic/Lymphatic: Hematologic/Lymphatic: Reports no additional hematologic/lymphatic complaints Allergic/Immunologic: Allergic/Immunologic: Reports no additional allergic/immunologic complaints PMFSH Past Medical History Attestation statement: The following information was validated with the patient. Source: old records reviewed and nursing notes reviewed Medical History Hypertension Anxiety Depression Social History Social History Alcohol intake: current Comment: sleeping Substance Use Type: Marijuana Advance Directives: Yes Advance Directives on File: Yes Advance Directives Date on File: 01/13/21 Do you have a plan to hurt others: No Plan Physical Exam ED Vital Signs: Vital Signs - 24 hr 07/14/24 21:39 Temperature 98 F Pulse Rate 46 L Respiratory Rate 18 Blood Pressure 124/68 Pulse Oximetry 98 Oxygen Delivery Method Room Air BMI result Body Mass Index 29.0 Const General: cooperative, no acute distress, alert and awake Nutritional Appearance: well nourished Orientation/consciousness: patient oriented x3 Limitations: no limitations HENMT Head: Yes normal to inspection and Yes atraumatic Ears: hearing grossly normal bilaterally and external ears normal General nose exam: Normal external nose present, no nasal discharge noted and no epistaxis Face and sinus: Yes normal facial exam, No abrasion and No laceration Mouth: Normal oral and palatal mucosa present, no drooling and no muffled voice Eyes General: appearance normal, both eyes and all related structures Periorbital: periorbital findings normal Eyelids: Yes eyelids normal Conjunctivae: conjunctivae normal Pupils: Equal, round and reactive pupils present EOM: EOMs intact bilaterally Neck Neck: Yes normal visual inspection, Yes full ROM and Yes no lymphadenopathy Chest Chest palpation & inspection: normal inspection of the chest Resp Effort & Inspection: normal respiratory effort and able to speak in complete sentences GI Inspection: Yes normal to inspection Neuro General: patient oriented x3 and moves all extremities Cranial nerves: Yes Equal, round and reactive pupils present Cognition (Neuro): normal cognition Extrem General: Yes normal to inspection, Yes full ROM and Yes capillary refill normal Psych Appearance: grossly normal Mental Status: mental status grossly normal Affect: normal affect Attitude: cooperative Thought process: Normal thought process present Thought content: Normal thought content present Insight: Good insight present (Psych) Medications Administered Discontinued Medications Generic Name Dose Route Start Last Admin Trade Name Freq PRN Reason Stop Dose Admin Ketorolac Tromethamine 15 mg 07/14/24 23:01 07/14/24 23:12 Ketorolac Tromethamine 15 Mg/Ml Vial IM 07/14/24 23:02 15 mg ONCE ONE Administration Medical Decision Making Medical Decision Making [facility] Narrative: Patient is a 48 year old assigned male at with a history of HTN, bilateral plantar fasciitis, depression, and bipolar disorder presenting to the emergency department today with bilateral foot pain and requesting medication refills. Patient's physical exam was unremarkable. I explained my physical exam findings to the patient. I answered all questions asked by the patient. I stressed the importance of the patient taking his medication as directed (either prescribed or as the over the counter packaging recommends). I stressed the importance of the patient following up with his primary care provider. I stressed the importance of the patient returning to the emergency department immediately if his symptoms were to worsen or if he were to develop any dizziness, shortness of breath, difficulty breathing, chest pain, blurry vision, loss of vision, nausea, vomiting, abdominal pain, fever, chills, back pain, or any other complaints. Patient verbalized agreement and understanding with this treatment plan and discharge. Differential Diagnosis Differential Diagnoses: The differential diagnosis associated with the presentation includes Plantar fasciitis Medication refill Admission/Observation Consideration of admission/observation: Escalation of care including admission/observation considered Patient would have been admitted to the hospital had his clinical presentation warranted hospital admission. Prescription Management I considered prescription management with: Pain Medication (patient prescribed pain medication) Chronic Conditions Patient?s care impacted by: Hypertension Discharge Plan Discharge Clinical Impression: Bilateral plantar fasciitis, Hypertension Patient Disposition: Home, Self-Care Instructions: Plantar Fasciitis (ED), Hypertension (ED), Plantar Fasciitis Exercises (ED) Additional Instructions: Follow up with your primary care provider. Return to the emergency department immediately if your symptoms worsen or if you develop any dizziness, shortness of breath, difficulty breathing, chest pain, blurry vision, loss of vision, nausea, vomiting, abdominal pain, fever, chills, back pain, or any other complaints. Prescriptions: New naproxen 500 mg tablet 500 mg PO BID 7 Days Qty: 14 0RF propranolol 20 mg tablet 20 mg PO TID Qty: 30 0RF pantoprazole 20 mg tablet,delayed release (DR/EC) 20 mg PO DAILY Qty: 14 0RF No Action benztropine 0.5 mg tablet 0.5 mg PO BID olanzapine 5 mg tablet 5 mg PO BID PRN (Reason: Agitation) olanzapine 10 mg tablet 10 mg PO BID pantoprazole 20 mg tablet,delayed release (DR/EC) 20 mg PO DAILY@0630 cholecalciferol (vitamin D3) [Vitamin D3] 10 mcg (400 unit) tablet 1 tab PO DAILY carbamazepine 400 mg Tablet Extended Release 12 Hr 400 mg PO BID fluoxetine 40 mg Capsule 40 mg PO DAILY nicotine 21 mg/24 hr Patch 24 Hour 1 patch TRANSDERMAL DAILY carbamazepine 200 mg tablet 400 mg PO DAILY Qty: 14 0RF trazodone 100 mg tablet 100 mg PO BEDTIME PRN (Reason: insomnia) Qty: 7 0RF trazodone 100 mg tablet 2 tab PO BEDTIME PRN (Reason: Anxiety) propranolol 20 mg tablet 20 mg PO TID acetaminophen [Tylenol Extra Strength] 500 mg tablet 500 mg PO Q6H PRN (Reason: fever or pain) Qty: 14 0RF lidocaine [Lidoderm] 5 % adhesive patch,medicated 1 patch topical DAILY MDD remove after 12 hours PRN (Reason: pain) Qty: 30 0RF Rx Instructions: leave on most painful area for up to 12 hrs naproxen 500 mg tablet 500 mg PO BID PRN (Reason: pain) 10 Days Qty: 20 0RF cyclobenzaprine 5 mg tablet 5 mg PO Q8H PRN (Reason: pain (scale score 7-10)) 5 Days Qty: 14 0RF naproxen 500 mg tablet 500 mg PO BID Qty: 60 0RF docusate calcium 240 mg capsule 240 mg PO DAILY Qty: 30 0RF polyethylene glycol 3350 [Miralax] 17 gram/dose powder 17 g PO DAILY Qty: 119 0RF naproxen 500 mg tablet 500 mg PO BID PRN (Reason: pain) Qty: 14 0RF propranolol 10 mg tablet 10 mg PO BID Qty: 60 1RF magnesium hydroxide [Milk of Magnesia] 400 mg/5 mL suspension 5 ml PO BID PRN (Reason: constipation) Qty: 355 0RF naproxen 500 mg tablet 500 mg PO BID PRN (Reason: pain) Qty: 20 0RF Referrals: [facility] [place] Family [facility] [Provider Group] (Call to establish and follow up with a primary care provider. If you already have a primary care provider, please follow up with them.) [facility], [place] [Provider Group] (Call to establish and follow up with a primary care provider. If you already have a primary care provider, please follow up with them.) [facility] [place] [facility],[place] [Provider Group] (Call to establish and follow up with a primary care provider. If you already have a primary care provider, please fo llow up with them.) Interventions: ED Discharge Assessment Last Done: 07/15/24 01:53 Print Language: [place]an
[2024-07-14] MEDS: Ketorolac Tromethamine 15 MG/ML VIAL IM (23:12)
--- NOTE | 2024-07-15 01:40 | PC.NURSE ---
Late Entry This RN assumed care for [facility] at 2330, I saw the patient still on the tracker and that his dc paperwork had been printed at 2323 by Sherine RAYMOND. Seeing the patient still on the board this RN Reprinted the discharge paperwork at 2353. When I presented to bedside the room was empty, fully flipped and had been cleaned by environmental. This RN at no point was able to visualize this patient.
[2024-07-15 01:53] VITALS: BP 00/00; PULSE 0; RESP 0; TEMP -17.7; TEMP 0; O2SAT 0
== END 2024-07-14 23:53 | disposition home or self-care (01) ==
PROVIDERS: Emergency Provider Emergency Medicine Emergency Medical Services
DX: M72.2 Plantar fascial fibromatosis (principal); I10 Essential (primary) hypertension; M79.672 Pain in left foot; M79.671 Pain in right foot; Z79.899 Other long term (current) drug therapy
CPT/HCPCS: 96372; 99283; 99284; J1885

== ENCOUNTER 2024-09-14 09:48 | Outpatient (REF) | payer OTHER, SELFPAY | END 2024-09-14 09:49 | disposition home or self-care (01) | LOC: HO.HOSX 09:48 | PROVIDERS: Visit Provider Physician Assistant | DX: Z13.89 Encounter for screening for other disorder (principal) ==

== ENCOUNTER 2024-09-25 12:30 | Inpatient (IN) | payer OTHER, SELFPAY ==
[2024-09-25 12:34] VITALS: BP 134/87; PULSE 50; RESP 18; TEMP 36.8; O2SAT 97; BMI 29.1
--- NOTE | 2024-09-25 12:35 | ED.PSYCH ---
HPI - Psych General Chief Complaint: Psychiatric Symptoms Stated Complaint: SI Time Seen by Provider: 09/25/24 12:42 Source: patient Mode of arrival: ambulatory Limitations: no limitations History of Present Illness HPI Narrative: This is a 49-year-old man with a past medical history of hypertension, depression, anxiety, bipolar disorder, cocaine use disorder, opiate use disorder who presents by EMS for evaluation of suicidal ideation. The patient states that he recently got discharged from a program for his alcohol and substance use. Patient is that he feels like his ?medications are messed up ?. He states for this reason he feels as if he is experiencing suicidal ideations. Patient reports having plan to overdose on his medications. Patient states that he did not in fact overdose and states that his mother took his medications away from him. He states that he last used alcohol and smoked crack/marijuana about a week and a half ago. Patient reports feeling depressed due to of several family members over the recent years. Patient states no recent fevers. Patient states no trauma or head strike. Patient states no chest pain, dyspnea, loss of consciousness. Patient states no abdominal pain or back pain. He states no nausea or vomiting. He states no GI or symptoms. He states he has had pain underneath his bilateral toes and feet for the last 8 months. He states no trauma. He states no swelling. He states that he was previously told that he had tendinitis in both of his feet. Related Data Home Medications ?Medication ?Instructions ?Recorded ?Confirmed buspirone 15 mg tablet 15 mg PO TID 09/25/24 09/25/24 divalproex 250 mg tablet,delayed 750 mg PO BEDTIME 09/25/24 09/25/24 release propranolol 10 mg tablet 10 mg PO BID 09/25/24 09/25/24 trazodone 150 mg tablet 150 mg PO BEDTIME 09/25/24 09/25/24 Allergies Allergy/AdvReac Type Severity Reaction Status Date / Time duloxetine [From CYMBALTA] Allergy Unknown RASH Verified 09/25/24 12:39 shrimp Allergy Anaphylaxis Verified 09/25/24 12:39 Review of Systems Review of Systems: ROS as per HPI PMFSH Past Medical History Medical History Hypertension Anxiety Depression Social History Social History Alcohol intake: former Comment: sleeping Smoked in Last 30 Days: Yes Use of substances other than those prescribed or required for medical reasons: Yes Substance Use Type: Crack/Cocaine and Marijuana Last Used Substance: Days (ago) Advance Directives: Yes Advance Directives on File: Yes Advance Directives Date on File: 01/13/21 Physical Exam Vital Signs: Vital Signs: Last Vital Signs Temp 98.3 F 09/25/24 12:34 Pulse 50 09/25/24 12:34 Resp 18 09/25/24 12:34 BP 134/87 09/25/24 12:34 Pulse Ox 97 09/25/24 12:34 O2 Del Method Room Air 09/25/24 12:34 BMI result Body Mass Index 29.1 Gen: NAD, AOx3 HEENT: NCAT, EOMI, normal conjunctiva CV: RRR Pulm: CTAB, no increased work of breathing GI: Soft, NTND, no rebound, guarding or rigidity MSK: Bilateral upper and lower extremity compartments are soft, bilateral lower extremities without deformity, no erythema/edema/rash/point tenderness to bilateral feet/toes Neuro: Grossly non focal Course Course Course Narrative: This is a rapid medical exam performed by Ruth Weiss NP: Additional HPI, ROS, PE not included below will be deferred to primary provider. Patient is a 49-year-old male presenting with complaint of depression and suicidal ideation for the past few days. Does not currently have a psychiatrist, has not been able to get his medications recently. Has foot pain r/t gout. Plan: med clearance, then care team eval Medications Administered Discontinued Medications Generic Name Dose Route Start Last Admin Trade Name Liz PRN Reason Stop Dose Admin Hydroxyzine HCl 10 mg 09/25/24 14:55 09/25/24 15:02 Hydroxyzine Hcl 10 Mg Tablet PO 09/25/24 14:56 10 mg ONCE ONE Administration Lorazepam 1 mg 09/25/24 15:39 09/25/24 15:45 Lorazepam 1 Mg Tablet PO 09/25/24 15:40 1 mg ONCE ONE Administration Medical Decision Making Medical Decision Making MDM Narrative: Differential diagnosis includes, but is not limited to substance abuse, anxiety/depression, suicidal ideation. Patient is afebrile and hemodynamically stable on room air. Exam is benign and reassuring. I reviewed and interpreted labs as below. Patient is provided supportive care here for anxiety with hydroxyzine and Ativan. I discussed this patient's case and management with nutrition consultant care team. Patient is placed on a section 12 due to suicidal ideation and is admitted for further workup and management. Admission/Observation Consideration of admission/observation: Escalation of care including admission/observation considered Consult Healthcare Provider Management of the patient was discussed with: Digital Media Planner Lab Data MDM Lab Attestation statement: I reviewed the patient's lab results. I reviewed and interpreted the patient's labs including CBC, metabolic panel, urinalysis, urine drug screen, acetaminophen level, salicylate level, valproic acid and ethanol level. These are notable for Depakote level within reference range of 51.5. Urine drug screen is positive for benzodiazepines. Patient has tested negative for COVID-19, influenza and RSV 09/25/24 13:13 09/25/24 13:13 Labs: Lab Results 09/25/24 09/25/24 Range/Units 13:13 13:14 WBC 11.9 H (4.8-10.8) X10*3/uL RBC 5.08 (4.60-5.80) X10*6/uL Hgb 15.9 (14.0-18.0) g/dl Hct 45.0 (42.0-52.0) % MCV 88.6 (80.0-98.0) fL MCH 31.3 (27.0-33.0) pg MCHC 35.3 (31.0-36.0) g/dl RDW 11.7 (11.0-16.0) % Plt Count 325 (160-400) X10*3/uL MPV 8.9 L (9.4-12.4) fL Immature Gran % (Auto) 0.3 (0.0-0.4) % Neut % (Auto) 51.0 (45-73) % Lymph % (Auto) 39.8 (20-40) % [place] % (Auto) 6.1 (2-11) % Eos % (Auto) 2.4 (0-4) % Baso % (Auto) 0.4 (0-2) % Lymph # (Auto) 4.7 (1.2-4.9) X10*3/uL [place] # (Auto) 0.7 (0.1-1.2) X10*3/uL Eos # (Auto) 0.3 (0.0-0.4) X10*3/uL Baso # (Auto) 0.1 (0.0-0.2) X10*3/uL Abs Immat Gran (auto) 0.04 H (0.00-0.03) X10*3/uL Absolute Neuts (auto) 6.1 (2.0-8.3) x10*3/uL Absolute Nucleated RBC 0.000 (0.0-0.012) X10*3/uL Nucleated RBC % (auto) 0.0 (0.0-0.2) /100WBC Sodium 138 (135-145) mmol/L Potassium 4.5 (3.3-5.1) mmol/L Chloride 102 (96-108) mmol/L Carbon Dioxide 27 (22-29) mmol/L Anion Gap 14 (12-20) BUN 11 (9-16) mg/dL Creatinine 0.89 (0.5-1.4) mg/dL Estim Creat Clear Calc 117.8 Estimated GFR > 60 Random Glucose 92 (60-115) mg/dL Calcium 10.2 (8.4-10.2) mg/dL Total Bilirubin 0.6 (0.0-1.0) mg/dL AST 23 (5-37) U/L ALT 24 (0-40) U/L Alkaline Phosphatase 89 (39-117) U/L Total Protein 7.9 (6.5-8.0) g/dL Albumin 4.2 (3.5-5.0) g/dL Urine Color Yellow Urine Appearance Clear Urine pH 7.0 (5.0-9.0) Ur Specific [place] <= 1.005 (1.005-1.025) Urine Protein Negative (Neg-Trace) mg/dL Urine Glucose (UA) Negative (Negative) mg/dL Urine Ketones Negative (Negative) mg/dL Urine Blood Negative (Negative) Urine Nitrite Negative (Negative) Ur Leukocyte Esterase Negative (Negative) Salicylates < 5.0 L (15-30) mg/dL Urine Opiates Screen Not Detected (Not Detect) Ur Buprenorphine Scrn Not Detected (Not Detect) ng/mL Ur Oxycodone Screen Not Detected (Not Detect) ng/mL Urine Methadone Screen Not Detected (Not Detect) ng/mL Urine Fentanyl Screen Not Detected (Not Detect) Acetaminophen < 3 (<30) mcg/mL Ur Barbiturates Screen Not Detected (Not Detect) Valproic Acid 51.5 (50.0-100.0) mcg/mL Ur Phencyclidine Scrn Not Detected (Not Detect) Ur Amphetamines Screen Not Detected (Not Detect) U Benzodiazepines Scrn POSITIVE H (Not Detect) Urine Cocaine Screen Not Detected (Not Detect) U Marijuana (THC) Screen Not Detected (Not Detect) Ethyl Alcohol < 10 mg/dL Influenza Type A (PCR) NEGATIVE (Negative) Influenza Type B (PCR) NEGATIVE (Negative) RSV RNA Qual (PCR) NEGATIVE (Negative) SARS-CoV-2 RNA (RT-PCR) NEGATIVE (Negative) Independent Interpretation I performed an independent interpretation of an: EKG Interpretation: I independently reviewed and interpreted the patient's EKG, which demonstrates sinus bradycardia at 47 beats per minute, WI 150, QRS 96, QTC 380, no STEMI Discharge Plan Discharge Clinical Impression: Suicidal ideation Patient Disposition: Admitted As Inpatient Interventions: [place]-Suicide Risk Severity Scale Last Done: 09/25/24 13:01
[2024-09-25 13:22] LABS: MANUAL DIFF FLAG NO
[2024-09-25 13:24] LABS: Basophils Absolute Auto 0.1 X10*3/uL (0.0-0.2); Basophils Percent Auto 0.4 % (0-2); Eosinophils Absolute Auto 0.3 X10*3/uL (0.0-0.4); Eosinophils Percent Auto 2.4 % (0-4); Hemoglobin 15.9 g/dl (14.0-18.0); Imm Gran Abs Auto 0.04 X10*3/uL (0.00-0.03); Imm Gran Pct Auto 0.3 % (0.0-0.4); Lymphocytes Absolute Auto 4.7 X10*3/uL (1.2-4.9); Lymphocytes Percent Auto 39.8 % (20-40); Mean Corpuscular HGB Conc 35.3 g/dl (31.0-36.0); Mean Corpuscular Hemoglobin 31.3 pg (27.0-33.0); Mean Corpuscular Volume 88.6 fL (80.0-98.0); Mean Platelet Volume 8.9 fL (9.4-12.4); Monocytes Absolute Auto 0.7 X10*3/uL (0.1-1.2); Monocytes Percent Auto 6.1 % (2-11); Neutrophils Absolute Auto 6.1 x10*3/uL (2.0-8.3); Platelet Count 325 X10*3/uL (160-400); Red Blood Count 5.08 X10*6/uL (4.60-5.80); Red Cell Distribution Width 11.7 % (11.0-16.0); White Blood Count 11.9 X10*3/uL (4.8-10.8)
[2024-09-25 13:25] LABS: Appearance Urine Clear; Color Urine Yellow; Glucose Urine UA Negative (Negative); Leukocyte Esterase Urine Negative (Negative); Nitrite Urine Negative (Negative); Specific Gravity - Urine <= 1.005 (1.005-1.025); Urine Blood Negative (Negative); Urine Ketones Negative (Negative); Urine Protein Negative (Neg-Trace)
[2024-09-25 13:45] LABS: Valproate 51.5 mcg/mL (50.0-100.0)
[2024-09-25 13:46] LABS: Amphetamine Screen Urine Not Detected (Not Detect); Barbiturates, Urine Not Detected (Not Detect); Benzodiazepines Screen Urine POSITIVE (Not Detect); Buprenorphine Scr Not Detected (Not Detect); Cannabinoid Screen Urine Not Detected (Not Detect); Cocaine Screen Urine Not Detected (Not Detect); Fentanyl, urine Not Detected (Not Detect); Methadone Screen, Urine Not Detected (Not Detect); Opiate Screen Urine Not Detected (Not Detect); Oxycodone Screen Urine Not Detected (Not Detect); Phencyclidine Screen Urine Not Detected (Not Detect)
[2024-09-25 13:47] LABS: Acetaminophen LAB < 3 mcg/mL (<30); Salicylate < 5.0 mg/dL (15-30)
[2024-09-25 13:48] LABS: Alanine Aminotransferase 24 U/L (0-40); Albumin Level 4.2 g/dL (3.5-5.0); Alkaline Phosphatase 89 U/L (39-117); Anion Gap 14 (12-20); Aspartate Amino Transferase 23 U/L (5-37); Bilirubin Total 0.6 mg/dL (0.0-1.0); Blood Urea Nitrogen 11 mg/dL (9-16); Calcium 10.2 mg/dL (8.4-10.2); Carbon Dioxide 27 mmol/L (22-29); Chloride 102 mmol/L (96-108); Creatinine Clr Calc Pharmacy 117.8; Estimated Glomerular Filt Rate > 60; Ethanol < 10 mg/dL; Glucose Random 92 mg/dL (60-115); Potassium 4.5 mmol/L (3.3-5.1); Sodium 138 mmol/L (135-145); Total Protein 7.9 g/dL (6.5-8.0)
[2024-09-25 14:00] LABS: Influenza A PCR NEGATIVE (Negative); Influenza B PCR NEGATIVE (Negative); Resp Syncy Virus RNA Qual PCR NEGATIVE (Negative); SARS COV2 PCR INHOUSE NEGATIVE (Negative)
[2024-09-25] MEDS: hydrOXYzine HCL 10 MG TABLET PO (15:02)
[2024-09-25] MEDS: LORazepam 1 MG TABLET PO ×2 (15:45→22:07)
--- NOTE | 2024-09-25 16:16 | ECG_ITS ---
Test Reason : QT CHECK Blood Pressure : / mmHG Vent. Rate : 047 BPM Atrial Rate : 047 BPM P-R Int : 150 ms QRS Dur : 096 ms QT Int : 430 ms P-R-T Axes : 039 039 037 degrees QTc Int : 380 ms Sinus bradycardia Minimal voltage criteria for LVH, may be normal variant ( Sokolow-Shay ) Anterior infarct , age undetermined Abnormal ECG When compared with ECG of 21-MAR-2021 06:29, Anterior infarct is now Present ST no longer elevated in Anterior leads Referred By: Generic ED Physician Electronically Signed By:CLOVIS MONCADA MD
[2024-09-25] MEDS: Nicotine 21 MG PATCH.TD24 TRANSDERMA (18:25)
--- NOTE | 2024-09-25 18:29 | PHA.MEDREC ---
Pharmacy Consult ? Medication Reconciliation Pharmacy has reviewed the medication reconciliation. Spoke to nurse Emanuel Rai, nurse said patient told him those meds are what he takes.
[2024-09-25 21:25] VITALS: BP 143/69; PULSE 62; TEMP 36.9; O2SAT 96
[2024-09-25 21:42] VITALS: BP 143/69; PULSE 62
[2024-09-25] MEDS: Propranolol HCL 10 MG TABLET PO (21:42)
[2024-09-25] MEDS: Acetaminophen 325 MG TABLET 650 MG PO (21:43)
[2024-09-25] MEDS: traZODone HCL 50 MG TABLET PO (21:44)
[2024-09-25] MEDS: busPIRone HCl 5 MG TABLET 15 MG PO (21:44)
[2024-09-25] MEDS: Divalproex Sodium 250 MG TABLET.DR 750 MG PO (21:44)
[2024-09-26] VITALS: BP 139/74; PULSE 56; TEMP 37.1
--- NOTE | 2024-09-26 02:56 | PC.ADMIT ---
A [place]-speaking, single, male, aged 49 years was admitted to the [facility] as a CV at 205 from [facility] pod. Skin check done upon arrival. Pt self-presented to [facility] ED on 09/25/24 at 12:30 with symptoms of increased depression with a plan to O/D. Pt reports recent losses including his aunt. Pt reports recent binge drinking and consumption of Etoh, cocaine and marijuana 14 days ago after discharge from other facility. Pt reports quitting smoking cigarettes at that time. Pt is utilizing ordered nicotine patch, but declines nicotine gum. Pt was calm and cooperative in ED pod sleeping most of time. Pt reports no sleep for four days. Pt was calm and cooperative upon admission to unit, but was focused on getting scheduled medication and going bed. Pt rated anxiety and depression at 8-9/10. Pt denied current SI/HI and says can seek out staff if needed. Pt c/o bilateral knee pain and bilateral foot pain for 8 months he attributes to gout. Pt requested/given PRN Tylenol with some good effect. Pt reports no falls during previous six months. CIWA Q4H ordered; pt denies W/D symptoms. Pt does not have PCP, therapist or psychiatric medication providers and is interested in being connected to providers. Pt reports he has been homeless for 3 weeks, but a friend is helping him find a room. Pt declines a flu shot at this time. Pt appeared to sleep during night with medications.
[2024-09-26 04:30] VITALS: BP 158/80; PULSE 51; TEMP 36.2
[2024-09-26] MEDS: Propranolol HCL 10 MG TABLET PO (08:07)
[2024-09-26] MEDS: busPIRone HCl 5 MG TABLET 15 MG PO ×3 (08:07→20:39)
[2024-09-26 08:12] VITALS: BP 154/90; PULSE 73; RESP 18; TEMP 36.7; O2SAT 96
[2024-09-26 08:46] LABS: Estimated Average Glucose 111 mg/dL; Hemoglobin A1c % 5.5 % (<6.0); Total Hemoglobin (HGBA1C) 4158.7961 umol/L
--- NOTE | 2024-09-26 09:05 | P.HPPS_ITS ---
HPI Date of Service: 09/26/24 Chief Complaint: depression Sources of Information: patient interviewed, chart reviewed and crisis/core team assessment reviewed HPI Subjective Notes: Gonzalez Warning, Conditional Voluntary and 3 Day Narrative: I s?a?49-year-old?male?with?history?of?bipolar?disorder,?PTSD,?alcohol?cocaine?abu se?who?presents?for?worsening?depression?and?SI I n?the?face?of?what?seems?to?be?medications?changes.??Patient?reports?that?for?th e?past?several?months?he?was?drinking A t?least?a?pt?today?and?doing?crack?cocaine;?he?would?spend?his?entire?disability ?check?in?2?days?on?drugs?alcohol?and?then B orrow?money?for?the?rest?of?the?month.??This?past?August?he?went?to?add?care?an d?got?sober;?was?taking?medications.??He?was?step-down?to [facility].??He?was?there?for?14?days?however?there?was?some?mix?up?and?he?was?wit hout?medications?and?started?to D ecompensate.??For?the?past?2?weeks?he?has?been?in?his?mother's.??He?has?been?sob er?but?he?has?been?getting?more?depressed Started?getting?suicidal?so?he?came?to?the?unit. ?Patient?vaguely?endorses?history?of?manic?episodes?asking?for?5?days.??Denies?A VH. pt seen at 12pm on 09/26 Past Psychiatric History: -recently?at?[facility]?and?then?[facility] (fall 2023) -treatment?trials: L ithium;?cause?sexual?side?effects?so?switch?to?Depakote?which?he?says?works?well Reports?ECT?in?the?past,?3?independent?times Otherwise?history?Extensively documented in H&P records. ?Past?psychiatric?hospitalizations; He does not remember where. Prior to that he was a [facility]. Medical Evaluation Reviewed: Yes [facility] Medical History (Updated 09/27/24 @ 10:49 by Christos Real MD) Alcohol use disorder Cocaine use disorder Hypertension Anxiety Depression Family History: none Social History: patient lives with brother and mother. patient is disabled. He is single and . He is estranged from his daughter was not spoken to him as his ex- does not allow her to speak to him Substance History: Alcohol?and?crack?cocaine?abuse;?sober?for?the?past?month Trauma History: patient states he was traumatized by his divorce and inability to see his daughter. Diagnostics Vital Signs (24Hr): Vital Signs - 24 hr 09/25/24 12:34 09/25/24 21:25 09/25/24 21:42 Temperature 98.3 F 98.4 F Pulse Rate 50 62 62 Respiratory Rate 18 Blood Pressure 134/87 143/69 H 143/69 H Pulse Oximetry 97 96 Oxygen Delivery Method Room Air Room Air 09/26/24 00:00 09/26/24 04:30 09/26/24 08:12 Temperature 98.7 F 97.2 F 98.0 F Pulse Rate 56 51 73 Respiratory Rate 18 Blood Pressure 139/74 158/80 H 154/90 H Pulse Oximetry 96 Oxygen Delivery Method Room Air BMI result Body Mass Index 29.1 Labs 09/25/24 13:13 09/25/24 13:13 Labs: Laboratory Results - last 48 hr 09/25/24 09/25/24 09/26/24 13:13 13:14 08:06 WBC 11.9 H RBC 5.08 Hgb 15.9 Hct 45.0 MCV 88.6 MCH 31.3 MCHC 35.3 RDW 11.7 Plt Count 325 MPV 8.9 L Immature Gran % (Auto) 0.3 Neut % (Auto) 51.0 Lymph % (Auto) 39.8 [place] % (Auto) 6.1 Eos % (Auto) 2.4 Baso % (Auto) 0.4 Lymph # (Auto) 4.7 [place] # (Auto) 0.7 Eos # (Auto) 0.3 Baso # (Auto) 0.1 Abs Immat Gran (auto) 0.04 H Absolute Neuts (auto) 6.1 Absolute Nucleated RBC 0.000 Nucleated RBC % (auto) 0.0 Sodium 138 Potassium 4.5 Chloride 102 Carbon Dioxide 27 Anion Gap 14 BUN 11 Creatinine 0.89 Estim Creat Clear Calc 117.8 Estimated GFR > 60 Random Glucose 92 Estimat Average Glucose 111 Hemoglobin A1c % 5.5 Calcium 10.2 Total Bilirubin 0.6 AST 23 ALT 24 Alkaline Phosphatase 89 Total Protein 7.9 Albumin 4.2 Urine Color Yellow Urine Appearance Clear Urine pH 7.0 Ur Specific [place] <= 1.005 Urine Protein Negative Urine Glucose (UA) Negative Urine Ketones Negative Urine Blood Negative Urine Nitrite Negative Ur Leukocyte Esterase Negative Salicylates < 5.0 L Urine Opiates Screen Not Detected Ur Buprenorphine Scrn Not Detected Ur Oxycodone Screen Not Detected Urine Methadone Screen Not Detected Urine Fentanyl Screen Not Detected Acetaminophen < 3 Ur Barbiturates Screen Not Detected Valproic Acid 51.5 Ur Phencyclidine Scrn Not Detected Ur Amphetamines Screen Not Detected U Benzodiazepines Scrn POSITIVE H Urine Cocaine Screen Not Detected U Marijuana (THC) Screen Not Detected Ethyl Alcohol < 10 Influenza Type A (PCR) NEGATIVE Influenza Type B (PCR) NEGATIVE RSV RNA Qual (PCR) NEGATIVE SARS-CoV-2 RNA (RT-PCR) NEGATIVE Meds/Allergies Meds Home Medications ?Medication ?Instructions ?Recorded ?Confirmed ?Type benztropine 1 mg tablet 1 mg PO DAILY 09/25/24 09/25/24 History buspirone 15 mg tablet 15 mg PO TID 09/25/24 09/25/24 History clonidine HCl 0.1 mg tablet 0.1 mg PO TID 09/25/24 09/25/24 History divalproex 250 mg tablet,delayed 750 mg PO BEDTIME 09/25/24 09/25/24 History release propranolol 10 mg tablet 10 mg PO BID 09/25/24 09/25/24 History trazodone 150 mg tablet 150 mg PO BEDTIME 09/25/24 09/25/24 History Allergies Allergies Allergy/AdvReac Type Severity Reaction Status Date / Time duloxetine [From CYMBALTA] Allergy Unknown RASH Verified 09/25/24 12:39 shrimp Allergy Anaphylaxis Verified 09/25/24 12:39 Mental Status Exam Mental Status Exam Narrative: Pt is alert and oriented; behavior is cooperative,?irritable?edge; patient is not in distress; dressed in casual attire with unkempt hair but adequate hygiene; mood is described as depressed and affect congruent,?constricted; eye contact appropriate; Speech is normal rate, volume and prosody and not pressured; my psychomotor agitation present; thought process is goal directed,?logical,?though?concrete; Thought content is on tx; otherwise pertinent to relevant topics and without any delusional content, paranoid ideations or grandiosity; intermittent?passive?SI;?no?HI. There is no evidence of perceptual disturbance. Patients insight and judgment?impaired. Assessment & Plan Assessment & Plan (1) Bipolar disorder: Status: Inactive Code(s): F31.9 - Bipolar disorder, unspecified (2) Post traumatic stress disorder: Status: Inactive Code(s): F43.10 - Post-traumatic stress disorder, unspecified (3) Cocaine use disorder: Status: Acute Code(s): F14.10 - Cocaine abuse, uncomplicated (4) Alcohol use disorder: Status: Acute Code(s): F10.90 - Alcohol use, unspecified, uncomplicated Plan I s?a?49-year-old?male?with?history?of?bipolar?disorder,?PTSD,?alcohol?cocaine?abu se?who?presents?for?worsening?depression?and?SI I n?the?face?of?what?seems?to?be?medications?changes.??Patient?reports?that?for?th e?past?several?months?he?was?drinking A t?least?a?pt?today?and?doing?crack?cocaine;?he?would?spend?his?entire?disability ?check?in?2?days?on?drugs?alcohol?and?then B orrow?money?for?the?rest?of?the?month.??This?past?August?he?went?to?add?care?an d?got?sober;?was?taking?medications.??He?was?step-down?to [facility].??He?was?there?for?14?days?however?there?was?some?mix?up?and?he?was?wit hout?medications?and?started?to D ecompensate.??For?the?past?2?weeks?he?has?been?in?his?mother's.??He?has?been?sob er?but?he?has?been?getting?more?depressed Started?getting?suicidal?so?he?came?to?the?unit. ?Patient?vaguely?endorses?history?of?manic?episodes?asking?for?5?days.??Denies?A VH. Formulation/clinical?reasoning:? P atient?reports?history?of?bipolar?disorder;?review?of?chart?seems?to?point?to?MD D?with high expressed emotion however?he?has?also?been?on?mood?stabilizersIn?the?past (including LIthium, Abilify). He?struggles?to?explain?himself?regarding?history?of?manic?episodes?but?able?to? put?together?enough?criteria?that?provisionally W ill?diagnose?him?with?bipolar?disorder,?unspecified.??He?reports?he?does?well?on ?Depakote?so?will?continue.??However?will?change To?long-acting and?increase as?his?current?level?is?subtherapeutic; will schedule for bedtime. ?Patient?has?much?anxiety.??Says?propranolol?not?that?helpful?and?would?like?to? switch?to?clonidine?which?he?said?helped?in?the?past. Also?has?some?neuropathic?pain?and?so?will?add?gabapentin?for?anxiety. Plan: CV Q?15?minute?checks? Change?Depakote?to?1000?mg?ER?q.h.s.; (was?on?DR)?and?level?subtherapeutic -will?get?labs?again Start?clonidine?0.1?mg?t.i.d. (says?has?helped?in?the?past) S tart?gabapentin?300?mg?t.i.d.;?history?of?neuropathic?leg?pain,?needs?help?with? anxiety;?could?possibly?curb?alcohol?craving DC?propranolol;?patient?says?only?limited?helpl Continue?other?home?meds? Get?collateral Patient educated on: diagnosis, medication risk/benefits, substance abuse, therapeutic strategies and medical condition Informed Consent: understands and further education needed Reason for continued inpatient stay Substantial Risk for: rapid decompensation Statement Statement: I have reviewed the history and physical and performed a pertinent examination on my patient. No changes have occurred unless specified. If the History and Physical was not performed prior to admission, the Hospitalist's service will be consulted for completing the admission physical. Time Spent With Patient Time: Total time managing care of this patient today ____ minutes.
[2024-09-26 09:47] LABS: Cholesterol 127 mg/dL (<200); HDL Cholesterol 35 mg/dL (>40); LDL Cholesterol Calculated 67 mg/dL (<100); Triglycerides 128 mg/dL (<150)
[2024-09-26 10:00] LABS: TSH reflex Free T4 0.62 uIU/mL (0.32-4.0)
[2024-09-26] MEDS: hydrOXYzine HCL 25 MG TABLET PO ×3 (10:37→23:37)
[2024-09-26] MEDS: cloNIDine HCL 0.1 MG TABLET PO ×2 (14:13→20:49)
[2024-09-26] MEDS: Gabapentin 300 MG CAPSULE PO ×2 (14:14→20:40)
[2024-09-26 14:15] VITALS: BP 122/66; PULSE 63
[2024-09-26] MEDS: Nicotine 21 MG PATCH.TD24 TRANSDERMA (17:12)
[2024-09-26 19:44] VITALS: BP 112/57; PULSE 57; TEMP 36.5; O2SAT 97
[2024-09-26] MEDS: Divalproex Sodium ER 500 MG TAB.ER.24H 1000 MG PO (20:39)
[2024-09-26] MEDS: traZODone HCL 50 MG TABLET 150 MG PO (20:41)
[2024-09-26 20:49] VITALS: BP 141/87
[2024-09-26] MEDS: traZODone HCL 50 MG TABLET PO (23:37)
[2024-09-27] MEDS: hydrOXYzine HCL 25 MG TABLET PO ×2 (06:09→12:40)
[2024-09-27] MEDS: Acetaminophen 325 MG TABLET 650 MG PO (06:09)
--- NOTE | 2024-09-27 08:26 | HO.PSYCHPN ---
Subjective Subjective Date of Service: 09/27/24 Reason For Visit: depression Subjective Notes: Conditional Voluntary Interim History: Pt reports feeling very anxious still, even with medications for anxiety. He reports propanolol may be more effective than clonidine and reports clonidine does lower BP. He worries if BP low he won't be able to take clonidine. He also reports vivid dreams, which we discussed could be related to trazodone. He asks if he can try seroquel at night instead. He reports he wants to continue working on sobriety because he wants to build back relationship with loved ones, mainly his daughter. He denies SI/HI. He reports last drink was 16 days, n risk at this point for withdrawal. will dc ciwa. Medication Compliance: Yes Review of Systems Review of Systems ROS as per HPI Mental Status Exam Mental Status Exam Narrative: Pt is alert and oriented; behavior is cooperative,?irritable?edge; patient is not in distress; dressed in casual attire with unkempt hair but adequate hygiene; mood is described as depressed and affect congruent,?constricted; eye contact appropriate; Speech is normal rate, volume and prosody and not pressured; my psychomotor agitation present; thought process is goal directed,?logical,?though?concrete; Thought content is on tx; otherwise pertinent to relevant topics and without any delusional content, paranoid ideations or grandiosity; intermittent?passive?SI;?no?HI. There is no evidence of perceptual disturbance. Patients insight and judgment?impaired. Diagnostics Vital Signs (24Hr): Vital Signs - 24 hr 09/26/24 14:15 09/26/24 19:44 09/26/24 20:49 Temperature 97.7 F Pulse Rate 63 57 Blood Pressure 122/66 112/57 L 141/87 H Pulse Oximetry 97 Oxygen Delivery Method Room Air BMI result Body Mass Index 29.1 Labs 09/25/24 13:13 09/25/24 13:13 Labs: Laboratory Results - last 48 hr 09/25/24 09/25/24 09/26/24 13:13 13:14 08:06 WBC 11.9 H RBC 5.08 Hgb 15.9 Hct 45.0 MCV 88.6 MCH 31.3 MCHC 35.3 RDW 11.7 Plt Count 325 MPV 8.9 L Immature Gran % (Auto) 0.3 Neut % (Auto) 51.0 Lymph % (Auto) 39.8 Richardson % (Auto) 6.1 Eos % (Auto) 2.4 Baso % (Auto) 0.4 Lymph # (Auto) 4.7 Richardson # (Auto) 0.7 Eos # (Auto) 0.3 Baso # (Auto) 0.1 Abs Immat Gran (auto) 0.04 H Absolute Neuts (auto) 6.1 Absolute Nucleated RBC 0.000 Nucleated RBC % (auto) 0.0 Sodium 138 Potassium 4.5 Chloride 102 Carbon Dioxide 27 Anion Gap 14 BUN 11 Creatinine 0.89 Estim Creat Clear Calc 117.8 Estimated GFR > 60 Random Glucose 92 Estimat Average Glucose 111 Hemoglobin A1c % 5.5 Calcium 10.2 Total Bilirubin 0.6 AST 23 ALT 24 Alkaline Phosphatase 89 Total Protein 7.9 Albumin 4.2 Triglycerides 128 Cholesterol 127 LDL Cholesterol, Calc 67 HDL Cholesterol 35 L TSH 0.62 Urine Color Yellow Urine Appearance Clear Urine pH 7.0 Ur Specific [place] <= 1.005 Urine Protein Negative Urine Glucose (UA) Negative Urine Ketones Negative Urine Blood Negative Urine Nitrite Negative Ur Leukocyte Esterase Negative Salicylates < 5.0 L Urine Opiates Screen Not Detected Ur Buprenorphine Scrn Not Detected Ur Oxycodone Screen Not Detected Urine Methadone Screen Not Detected Urine Fentanyl Screen Not Detected Acetaminophen < 3 Ur Barbiturates Screen Not Detected Valproic Acid 51.5 Ur Phencyclidine Scrn Not Detected Ur Amphetamines Screen Not Detected U Benzodiazepines Scrn POSITIVE H Urine Cocaine Screen Not Detected U Marijuana (THC) Screen Not Detected Ethyl Alcohol < 10 Influenza Type A (PCR) NEGATIVE Influenza Type B (PCR) NEGATIVE RSV RNA Qual (PCR) NEGATIVE SARS-CoV-2 RNA (RT-PCR) NEGATIVE Medications Medications Current Medications Acetaminophen (Acetaminophen 325 Mg Tablet) 650 mg PO Q6H PRN PRN Reason: Headache/Pain Mild Scale (1-3) Last Admin: 09/27/24 06:09 Dose: 650 mg Al Hydroxide/Mg Hydroxide (Magnesium Hydrox/Alum Hydrox 30 Ml Oral.Susp) 30 ml PO Q6H PRN PRN Reason: Heartburn/Nausea Buspirone HCl (Buspirone Hcl 5 Mg Tablet) 15 mg PO TID [facility] Last Admin: 09/26/24 20:39 Dose: 15 mg Clonidine HCl (Clonidine Hcl 0.1 Mg Tablet) 0.1 mg PO TID [facility]; Protocol Last Admin: 09/26/24 20:49 Dose: 0.1 mg Divalproex Sodium (Divalproex Sodium Er 500 Mg Tab.Er.24h) 1,000 mg PO BEDTIME [facility] Last Admin: 09/26/24 20:39 Dose: 1,000 mg Gabapentin (Gabapentin 300 Mg Capsule) 300 mg PO TID [facility] Last Admin: 09/26/24 20:40 Dose: 300 mg Hydroxyzine HCl (Hydroxyzine Hcl 25 Mg Tablet) 25 mg PO Q6H PRN PRN Reason: Anxiety Last Admin: 09/27/24 06:09 Dose: 25 mg Magnesium Hydroxide (Milk Of Magnesia 30 Ml Oral.Susp) 30 ml PO DAILY PRN PRN Reason: Constipation Nicotine (Nicotine 21 Mg Patch.Td24) 21 mg TRANSDERMA DAILY PRN PRN Reason: smoking cessation Last Admin: 09/26/24 17:12 Dose: 21 mg Nicotine Polacrilex (Nicotine Polacrilex 2 Mg Gum) 4 mg BUCCAL Q2H PRN PRN Reason: Nicotine Cravings Trazodone HCl (Trazodone Hcl 50 Mg Tablet) 50 mg PO BEDTIME MRX1 PRN PRN Reason: Insomnia Last Admin: 09/26/24 23:37 Dose: 50 mg Trazodone HCl (Trazodone Hcl 50 Mg Tablet) 150 mg PO BEDTIME [facility] Last Admin: 09/26/24 20:41 Dose: 150 mg Allergies Allergies Allergy/AdvReac Type Severity Reaction Status Date / Time duloxetine [From CYMBALTA] Allergy Unknown RASH Verified 09/25/24 12:39 shrimp Allergy Anaphylaxis Verified 09/25/24 12:39 Assessment & Plan Assessment & Plan (1) Bipolar disorder, now depressed: Qualifiers: Current episode severity: unspecified Qualified Code(s): F31.30 - Bipolar disorder, current episode depressed, mild or moderate severity, unspecified Status: Acute Code(s): F31.30 - Bipolar disorder, current episode depressed, mild or moderate severity, unspecified (2) Cocaine use disorder: Status: Acute Code(s): F14.10 - Cocaine abuse, uncomplicated (3) Alcohol use disorder: Status: Acute Code(s): F10.90 - Alcohol use, unspecified, uncomplicated Plan 09/27 lowered clonidine 0.1mg po BID, scheduled propanolol 5mg po TID. d/c trazodone 150mg po qhs, start seroquel 100mg po qhs.continue depakote. Reason for continued inpatient stay Substantial Risk for: inability to function Time Spent With Patient Time: Total time managing care of this patient today ____ minutes.
[2024-09-27] MEDS: cloNIDine HCL 0.1 MG TABLET PO ×2 (08:27→21:29)
[2024-09-27] MEDS: busPIRone HCl 5 MG TABLET 15 MG PO ×3 (08:27→21:29)
[2024-09-27] MEDS: Gabapentin 300 MG CAPSULE PO ×3 (08:27→21:28)
[2024-09-27 08:29] VITALS: BP 122/73; PULSE 60; RESP 16; TEMP 36.4; O2SAT 96
[2024-09-27 14:40] VITALS: BP 122/72; PULSE 66
[2024-09-27] MEDS: Propranolol HCL 10 MG TABLET 5 MG PO ×2 (14:40→21:29)
[2024-09-27 15:47] VITALS: BMI 29.3
[2024-09-27] MEDS: hydrOXYzine HCL 50 MG TABLET PO (16:00)
[2024-09-27 19:12] VITALS: BMI 29.1
[2024-09-27 20:00] VITALS: BP 130/70; PULSE 114; RESP 16; TEMP 36.4; O2SAT 99
[2024-09-27] MEDS: traZODone HCL 50 MG TABLET PO (21:28)
[2024-09-27] MEDS: Divalproex Sodium ER 500 MG TAB.ER.24H 1000 MG PO (21:28)
[2024-09-27] MEDS: QUEtiapine Fumarate 100 MG TABLET PO (21:28)
[2024-09-27 21:29] VITALS: BP 140/95; PULSE 86
[2024-09-28] MEDS: hydrOXYzine HCL 50 MG TABLET PO ×3 (00:46→23:37)
[2024-09-28] MEDS: traZODone HCL 50 MG TABLET PO ×3 (00:46→23:37)
[2024-09-28] MEDS: Magnesium Hydrox/Alum Hydrox 30 ML ORAL.SUSP PO (02:38)
[2024-09-28 08:00] VITALS: BP 116/53; PULSE 55; RESP 16; TEMP 36.8; O2SAT 99
[2024-09-28] MEDS: Propranolol HCL 10 MG TABLET 5 MG PO ×3 (09:00→20:46)
[2024-09-28] MEDS: busPIRone HCl 5 MG TABLET 15 MG PO ×3 (09:01→20:45)
[2024-09-28] MEDS: cloNIDine HCL 0.1 MG TABLET PO ×2 (09:01→20:46)
[2024-09-28] MEDS: Gabapentin 300 MG CAPSULE PO (09:01)
[2024-09-28] MEDS: QUEtiapine Fumarate 100 MG TABLET PO ×2 (14:22→20:46)
[2024-09-28] MEDS: Gabapentin 300 MG CAPSULE 600 MG PO ×2 (14:22→20:47)
[2024-09-28 14:35] VITALS: BP 132/83; PULSE 65
--- NOTE | 2024-09-28 18:45 | HO.PSYCHPN ---
Subjective Subjective Date of Service: 09/28/24 Reason For Visit: depression Subjective Notes: Conditional Voluntary Interim History: Pt slept total of 6hrs, broken sleep. Pt presents as very restless, somewhat irritable, reporting he is very anxious and only think it may work is clonazepam or ativan. we discussed trial of other medications as he continues working on his recovery. He denies craving alcohol and has denied MAT such as naltrexon, stating I don't needed but discussed how need for benzo is related to craving alcohol. encouraged to think about getting naltrexon. He had reported to RN seeing heads, he states this only happens when he closes his eyes, not while eyes open. somewhat irritable and edgy when discussing medications, feeling they don't work, and he has tried them all, knows clonazepam will work... again discussed his motivation to continue alcohol use disorder treatment, his insight as to how alcohol has affected his relationship with his daughter and how he wants to get closer to her. Medication Compliance: Yes Side effects from medications: No Attending Groups: Intermittent Review of Systems Review of Systems ROS as per [facility] Mental Status Exam Mental Status Exam Narrative: Pt is alert and oriented; behavior is cooperative,?irritable?edge; patient is not in distress; dressed in casual attire with unkempt hair but adequate hygiene; mood is described as depressed and affect congruent,?constricted; eye contact appropriate; Speech is normal rate, volume and prosody and not pressured; my psychomotor agitation present; thought process is goal directed,?logical,?though?concrete; Thought content is on tx; otherwise pertinent to relevant topics and without any delusional content, paranoid ideations or grandiosity; intermittent?passive?SI;?no?HI. There is no evidence of perceptual disturbance. Patients insight and judgment?impaired. Diagnostics Vital Signs (24Hr): Vital Signs - 24 hr 09/27/24 20:00 09/27/24 21:29 09/27/24 21:29 Temperature 97.6 F Pulse Rate 114 H 86 Respiratory Rate 16 Blood Pressure 130/70 140/95 H 140/95 H Pulse Oximetry 99 Oxygen Delivery Method Room Air 09/28/24 08:00 09/28/24 14:35 Temperature 98.3 F Pulse Rate 55 65 Respiratory Rate 16 Blood Pressure 116/53 L 132/83 Pulse Oximetry 99 Oxygen Delivery Method Room Air BMI result Body Mass Index 29.1 Labs 09/25/24 13:13 09/25/24 13:13 Medications Medications Current Medications Acetaminophen (Acetaminophen 325 Mg Tablet) 650 mg PO Q6H PRN PRN Reason: Headache/Pain Mild Scale (1-3) Last Admin: 09/27/24 06:09 Dose: 650 mg Al Hydroxide/Mg Hydroxide (Magnesium Hydrox/Alum Hydrox 30 Ml Oral.Susp) 30 ml PO Q6H PRN PRN Reason: Heartburn/Nausea Last Admin: 09/28/24 02:38 Dose: 30 ml Buspirone HCl (Buspirone Hcl 5 Mg Tablet) 15 mg PO TID [facility] Last Admin: 09/28/24 14:22 Dose: 15 mg Clonidine HCl (Clonidine Hcl 0.1 Mg Tablet) 0.1 mg PO BID [facility]; Protocol Last Admin: 09/28/24 09:01 Dose: 0.1 mg Divalproex Sodium (Divalproex Sodium Er 500 Mg Tab.Er.24h) 1,000 mg PO BEDTIME [facility] Last Admin: 09/27/24 21:28 Dose: 1,000 mg Gabapentin (Gabapentin 300 Mg Capsule) 600 mg PO TID [facility] Last Admin: 09/28/24 14:22 Dose: 600 mg Hydroxyzine HCl (Hydroxyzine Hcl 50 Mg Tablet) 50 mg PO Q6H PRN PRN Reason: Anxiety Last Admin: 09/28/24 11:46 Dose: 50 mg Magnesium Hydroxide (Milk Of Magnesia 30 Ml Oral.Susp) 30 ml PO DAILY PRN PRN Reason: Constipation Nicotine (Nicotine 21 Mg Patch.Td24) 21 mg TRANSDERMA DAILY PRN PRN Reason: smoking cessation Last Admin: 09/26/24 17:12 Dose: 21 mg Nicotine Polacrilex (Nicotine Polacrilex 2 Mg Gum) 4 mg BUCCAL Q2H PRN PRN Reason: Nicotine Cravings Propranolol HCl (Propranolol Hcl 10 Mg Tablet) 5 mg PO TID [facility]; Protocol Last Admin: 09/28/24 14:35 Dose: 5 mg Quetiapine Fumarate (Quetiapine Fumarate 100 Mg Tablet) 100 mg PO BEDTIME [facility] Last Admin: 09/27/24 21:28 Dose: 100 mg Trazodone HCl (Trazodone Hcl 50 Mg Tablet) 250 mg PO BEDTIME [facility] Trazodone HCl (Trazodone Hcl 50 Mg Tablet) 50 mg PO BEDTIME PRN PRN Reason: Insomnia Allergies Allergies Allergy/AdvReac Type Severity Reaction Status Date / Time duloxetine [From CYMBALTA] Allergy Unknown RASH Verified 09/25/24 12:39 shrimp Allergy Anaphylaxis Verified 09/25/24 12:39 Assessment & Plan Assessment & Plan (1) Bipolar disorder, now depressed: Qualifiers: Current episode severity: unspecified Qualified Code(s): F31.30 - Bipolar disorder, current episode depressed, mild or moderate severity, unspecified Status: Acute Code(s): F31.30 - Bipolar disorder, current episode depressed, mild or moderate severity, unspecified (2) Cocaine use disorder: Status: Acute Code(s): F14.10 - Cocaine abuse, uncomplicated (3) Alcohol use disorder: Status: Acute Code(s): F10.90 - Alcohol use, unspecified, uncomplicated Plan 09/27 lowered clonidine 0.1mg po BID, scheduled propanolol 5mg po TID. d/c trazodone 150mg po qhs, start seroquel 100mg po qhs.continue depakote. 09/28 increase gabapentin to 600mg po TID. seroquel 100mg po TID. propanolol 20mg po TID, wants trazodone back 200mg po qhs. will check depakote and ammonia close to nighttime dose. consider naltrexon, may help with cravings Reason for continued inpatient stay Substantial Risk for: inability to function Time Spent With Patient Time: Total time managing care of this patient today ____ minutes.
[2024-09-28 20:00] VITALS: BP 126/73; PULSE 80; RESP 16; TEMP 36.5; O2SAT 98
[2024-09-28] MEDS: Acetaminophen 325 MG TABLET 650 MG PO (20:44)
[2024-09-28] MEDS: traZODone HCL 50 MG TABLET 250 MG PO (20:46)
[2024-09-28] MEDS: Divalproex Sodium ER 500 MG TAB.ER.24H 1000 MG PO (20:46)
[2024-09-29] MEDS: Magnesium Hydrox/Alum Hydrox 30 ML ORAL.SUSP PO (02:17)
[2024-09-29] MEDS: traZODone HCL 50 MG TABLET PO ×2 (02:17→23:26)
[2024-09-29] MEDS: Propranolol HCL 10 MG TABLET 5 MG PO ×3 (08:12→20:48)
[2024-09-29] MEDS: cloNIDine HCL 0.1 MG TABLET PO ×2 (08:12→20:48)
[2024-09-29] MEDS: busPIRone HCl 5 MG TABLET 15 MG PO ×3 (08:12→20:48)
[2024-09-29] MEDS: hydrOXYzine HCL 50 MG TABLET PO ×3 (08:12→23:25)
[2024-09-29] MEDS: Gabapentin 300 MG CAPSULE 600 MG PO ×3 (08:13→20:47)
[2024-09-29 08:21] VITALS: BP 125/79; PULSE 52; RESP 18; TEMP 36.5; O2SAT 97
[2024-09-29 09:03] LABS: Vitamin D 25-OH Total 35.4 ng/mL (>30)
--- NOTE | 2024-09-29 11:23 | P.PNPSI_ITS ---
Subjective Subjective Date of Service: 09/29/24 Reason For Visit: depression Interim History: Patient reports he is tolerating his medications. He say she has been having nightmares. He denies SI. Because he is feeling partial improvement in symptoms with the depakote wondering about an increase in dose. We discuss he has labs pending for the morning and we can reevaluate need for increasing the dose. Trazodone somewhat helpful for sleep. Vit D on the lower side of normal and he has had low vit D levels in the past. Denies SI. Review of Systems Review of Systems ROS as per HPI Mental Status Exam Mental Status Exam Narrative: Pt is alert and oriented; behavior is cooperative,?irritable?edge; patient is not in distress; dressed in casual attire with unkempt hair but adequate hygiene; mood is described as depressed and affect congruent,?constricted; eye contact appropriate; Speech is normal rate, volume and prosody and not pressured; my psychomotor agitation present; thought process is goal directed,?logical,?though?concrete; Thought content is on tx; otherwise pertinent to relevant topics and without any delusional content, paranoid ideations or grandiosity; intermittent?passive?SI;?no?HI. There is no evidence of perceptual disturbance. Patients insight and judgment?impaired. Diagnostics Vital Signs (24Hr): Vital Signs - 24 hr 09/28/24 14:35 09/28/24 20:00 09/29/24 08:21 Temperature 97.7 F 97.7 F Pulse Rate 65 80 52 Respiratory Rate 16 18 Blood Pressure 132/83 126/73 125/79 Pulse Oximetry 98 97 Oxygen Delivery Method Room Air Room Air BMI result Body Mass Index 29.1 Labs 09/25/24 13:13 09/25/24 13:13 Labs: Laboratory Results - last 48 hr 09/29/24 07:40 25-OH Vitamin D Total 35.4 Medications Medications Current Medications Acetaminophen (Acetaminophen 325 Mg Tablet) 650 mg PO Q6H PRN PRN Reason: Headache/Pain Mild Scale (1-3) Last Admin: 09/28/24 20:44 Dose: 650 mg Al Hydroxide/Mg Hydroxide (Magnesium Hydrox/Alum Hydrox 30 Ml Oral.Susp) 30 ml PO Q6H PRN PRN Reason: Heartburn/Nausea Last Admin: 09/29/24 02:17 Dose: 30 ml Buspirone HCl (Buspirone Hcl 5 Mg Tablet) 15 mg PO TID [facility] Last Admin: 09/29/24 08:12 Dose: 15 mg Clonidine HCl (Clonidine Hcl 0.1 Mg Tablet) 0.1 mg PO BID [facility]; Protocol Last Admin: 09/29/24 08:12 Dose: 0.1 mg Divalproex Sodium (Divalproex Sodium Er 500 Mg Tab.Er.24h) 1,000 mg PO BEDTIME [facility] Last Admin: 09/28/24 20:46 Dose: 1,000 mg Gabapentin (Gabapentin 300 Mg Capsule) 600 mg PO TID [facility] Last Admin: 09/29/24 08:13 Dose: 600 mg Hydroxyzine HCl (Hydroxyzine Hcl 50 Mg Tablet) 50 mg PO Q6H PRN PRN Reason: Anxiety Last Admin: 09/29/24 08:12 Dose: 50 mg Magnesium Hydroxide (Milk Of Magnesia 30 Ml Oral.Susp) 30 ml PO DAILY PRN PRN Reason: Constipation Nicotine (Nicotine 21 Mg Patch.Td24) 21 mg TRANSDERMA DAILY PRN PRN Reason: smoking cessation Last Admin: 09/26/24 17:12 Dose: 21 mg Nicotine Polacrilex (Nicotine Polacrilex 2 Mg Gum) 4 mg BUCCAL Q2H PRN PRN Reason: Nicotine Cravings Propranolol HCl (Propranolol Hcl 10 Mg Tablet) 5 mg PO TID [facility]; Protocol Last Admin: 09/29/24 08:12 Dose: 5 mg Quetiapine Fumarate (Quetiapine Fumarate 100 Mg Tablet) 100 mg PO BEDTIME [facility] Last Admin: 09/28/24 20:46 Dose: 100 mg Trazodone HCl (Trazodone Hcl 50 Mg Tablet) 250 mg PO BEDTIME [facility] Last Admin: 09/28/24 20:46 Dose: 250 mg Trazodone HCl (Trazodone Hcl 50 Mg Tablet) 50 mg PO BEDTIME PRN PRN Reason: Insomnia Last Admin: 09/29/24 02:17 Dose: 50 mg Allergies Allergies Allergy/AdvReac Type Severity Reaction Status Date / Time duloxetine [From CYMBALTA] Allergy Unknown RASH Verified 09/25/24 12:39 shrimp Allergy Anaphylaxis Verified 09/25/24 12:39 Assessment & Plan Assessment & Plan (1) Bipolar disorder, now depressed: Qualifiers: Current episode severity: unspecified Qualified Code(s): F31.30 - Bipolar disorder, current episode depressed, mild or moderate severity, unspecified Status: Acute Code(s): F31.30 - Bipolar disorder, current episode depressed, mild or moderate severity, unspecified (2) Cocaine use disorder: Status: Acute Code(s): F14.10 - Cocaine abuse, uncomplicated (3) Alcohol use disorder: Status: Acute Code(s): F10.90 - Alcohol use, unspecified, uncomplicated Plan 09/27 lowered clonidine 0.1mg po BID, scheduled propanolol 5mg po TID. d/c trazodone 150mg po qhs, start seroquel 100mg po qhs.continue depakote. 09/28 increase gabapentin to 600mg po TID. seroquel 100mg po TID. propanolol 20mg po TID, wants trazodone back 200mg po qhs. will check depakote and ammonia close to nighttime dose. consider naltrexon, may help with cravings 09/29: Depakote level tomorrow. Consider increase based on results. Increase Trazodone 300 mg HS. Start Vit D. Reason for continued inpatient stay Substantial Risk for: inability to function and rapid decompensation Time Spent With Patient Time: Total time managing care of this patient today ____ minutes.
[2024-09-29] MEDS: Acetaminophen 325 MG TABLET 650 MG PO ×2 (13:48→20:46)
[2024-09-29 14:19] VITALS: BP 157/67; PULSE 82
[2024-09-29 20:33] VITALS: BP 124/90; PULSE 89; RESP 16; TEMP 36.7; O2SAT 97
[2024-09-29] MEDS: Divalproex Sodium ER 500 MG TAB.ER.24H 1000 MG PO (20:48)
[2024-09-29] MEDS: QUEtiapine Fumarate 100 MG TABLET PO (20:49)
[2024-09-29] MEDS: traZODone HCL 50 MG TABLET 250 MG PO (20:49)
[2024-09-30 08:00] VITALS: BP 109/62; PULSE 67; RESP 16; TEMP 36.6; O2SAT 98
[2024-09-30] MEDS: Gabapentin 300 MG CAPSULE 600 MG PO ×3 (08:05→21:24)
[2024-09-30] MEDS: Cholecalciferol (Vitamin D3) 25 MCG TABLET 50 MCG PO (08:05)
[2024-09-30] MEDS: Propranolol HCL 10 MG TABLET 5 MG PO ×3 (08:06→21:25)
[2024-09-30] MEDS: cloNIDine HCL 0.1 MG TABLET PO ×2 (08:06→21:24)
[2024-09-30] MEDS: busPIRone HCl 5 MG TABLET 15 MG PO ×3 (08:06→21:26)
[2024-09-30 08:32] LABS: Ammonia 75 umol/L (13-55)
[2024-09-30 08:42] LABS: Valproate 50.9 mcg/mL (50.0-100.0)
[2024-09-30 08:44] LABS: Alanine Aminotransferase 20 U/L (0-40); Albumin Level 3.5 g/dL (3.5-5.0); Alkaline Phosphatase 70 U/L (39-117); Aspartate Amino Transferase 21 U/L (5-37); Bilirubin Direct 0.2 mg/dL (0.0-0.5); Bilirubin Total 0.4 mg/dL (0.0-1.0); Total Protein 6.5 g/dL (6.5-8.0)
[2024-09-30] MEDS: hydrOXYzine HCL 50 MG TABLET PO ×2 (10:53→17:33)
[2024-09-30] MEDS: Acetaminophen 325 MG TABLET 650 MG PO (10:53)
--- NOTE | 2024-09-30 11:04 | P.PNPSI_ITS ---
Subjective Subjective Date of Service: 09/30/24 Reason For Visit: depression Interim History: Patient reports he is tolerating his medications. Depakote level 50.9. Continues with insomnia and nightmares. Reports chronic shoulder pain that has responded well to Aleve in the past. He denies SI. Because he is feeling partial improvement in symptoms with the depakote. Denies SI. Review of Systems Review of Systems ROS as per HPI Mental Status Exam Mental Status Exam Narrative: Pt is alert and oriented; behavior is cooperative,?irritable?edge; patient is not in distress; dressed in casual attire with unkempt hair but adequate hygiene; mood is described as depressed and affect congruent,?constricted; eye contact appropriate; Speech is normal rate, volume and prosody and not pressured; my psychomotor agitation present; thought process is goal directed,?logical,?though?concrete; Thought content is on tx; otherwise pertinent to relevant topics and without any delusional content, paranoid ideations or grandiosity; intermittent?passive?SI;?no?HI. There is no evidence of perceptual disturbance. Patients insight and judgment?impaired. Diagnostics Vital Signs (24Hr): Vital Signs - 24 hr 09/29/24 14:19 09/29/24 20:33 09/30/24 08:00 Temperature 98.1 F 97.8 F Pulse Rate 82 89 67 Respiratory Rate 16 16 Blood Pressure 157/67 H 124/90 H 109/62 Pulse Oximetry 97 98 Oxygen Delivery Method Room Air Room Air BMI result Body Mass Index 29.1 Labs 09/25/24 13:13 09/25/24 13:13 Labs: Laboratory Results - last 48 hr 09/29/24 09/30/24 07:40 08:05 Total Bilirubin 0.4 Direct Bilirubin 0.2 AST 21 ALT 20 Alkaline Phosphatase 70 Ammonia 75 H Total Protein 6.5 Albumin 3.5 25-OH Vitamin D Total 35.4 Hold Yellow Top See Note Valproic Acid 50.9 Medications Medications Current Medications Acetaminophen (Acetaminophen 325 Mg Tablet) 650 mg PO Q6H PRN PRN Reason: Headache/Pain Mild Scale (1-3) Last Admin: 09/30/24 10:53 Dose: 650 mg Al Hydroxide/Mg Hydroxide (Magnesium Hydrox/Alum Hydrox 30 Ml Oral.Susp) 30 ml PO Q6H PRN PRN Reason: Heartburn/Nausea Last Admin: 09/29/24 02:17 Dose: 30 ml Buspirone HCl (Buspirone Hcl 5 Mg Tablet) 15 mg PO TID [facility] Last Admin: 09/30/24 08:06 Dose: 15 mg Clonidine HCl (Clonidine Hcl 0.1 Mg Tablet) 0.1 mg PO BID [facility]; Protocol Last Admin: 09/30/24 08:06 Dose: 0.1 mg Divalproex Sodium (Divalproex Sodium Er 500 Mg Tab.Er.24h) 1,000 mg PO BEDTIME [facility] Last Admin: 09/29/24 20:48 Dose: 1,000 mg Gabapentin (Gabapentin 300 Mg Capsule) 600 mg PO TID [facility] Last Admin: 09/30/24 08:05 Dose: 600 mg Hydroxyzine HCl (Hydroxyzine Hcl 50 Mg Tablet) 50 mg PO Q6H PRN PRN Reason: Anxiety Last Admin: 09/30/24 10:53 Dose: 50 mg Magnesium Hydroxide (Milk Of Magnesia 30 Ml Oral.Susp) 30 ml PO DAILY PRN PRN Reason: Constipation Nicotine (Nicotine 21 Mg Patch.Td24) 21 mg TRANSDERMA DAILY PRN PRN Reason: smoking cessation Last Admin: 09/26/24 17:12 Dose: 21 mg Nicotine Polacrilex (Nicotine Polacrilex 2 Mg Gum) 4 mg BUCCAL Q2H PRN PRN Reason: Nicotine Cravings Propranolol HCl (Propranolol Hcl 10 Mg Tablet) 5 mg PO TID [facility]; Protocol Last Admin: 09/30/24 08:06 Dose: 5 mg Quetiapine Fumarate (Quetiapine Fumarate 100 Mg Tablet) 100 mg PO BEDTIME [facility] Last Admin: 09/29/24 20:49 Dose: 100 mg Trazodone HCl (Trazodone Hcl 50 Mg Tablet) 250 mg PO BEDTIME [facility] Last Admin: 09/29/24 20:49 Dose: 250 mg Trazodone HCl (Trazodone Hcl 50 Mg Tablet) 50 mg PO BEDTIME PRN PRN Reason: Insomnia Last Admin: 09/29/24 23:26 Dose: 50 mg Vitamin D (Cholecalciferol (Vitamin D3) 25 Mcg Tablet) 50 mcg PO DAILY [facility] Last Admin: 09/30/24 08:05 Dose: 50 mcg Allergies Allergies Allergy/AdvReac Type Severity Reaction Status Date / Time duloxetine [From CYMBALTA] Allergy Unknown RASH Verified 09/25/24 12:39 shrimp Allergy Anaphylaxis Verified 09/25/24 12:39 Assessment & Plan Assessment & Plan (1) Bipolar disorder, now depressed: Qualifiers: Current episode severity: unspecified Qualified Code(s): F31.30 - Bipolar disorder, current episode depressed, mild or moderate severity, unspecified Status: Acute Code(s): F31.30 - Bipolar disorder, current episode depressed, mild or moderate severity, unspecified (2) Cocaine use disorder: Status: Acute Code(s): F14.10 - Cocaine abuse, uncomplicated (3) Alcohol use disorder: Status: Acute Code(s): F10.90 - Alcohol use, unspecified, uncomplicated Plan 09/27 lowered clonidine 0.1mg po BID, scheduled propanolol 5mg po TID. d/c trazodone 150mg po qhs, start seroquel 100mg po qhs.continue depakote. 09/28 increase gabapentin to 600mg po TID. seroquel 100mg po TID. propanolol 20mg po TID, wants trazodone back 200mg po qhs. will check depakote and ammonia close to nighttime dose. consider naltrexon, may help with cravings 09/29: Depakote level tomorrow. Consider increase based on results. Increase Trazodone 300 mg HS. Start Vit D. 08/30: Increase Depakote to 1,250 mg HS. Start Aleve. Start Prazossin 2 mg HS. Reason for continued inpatient stay Substantial Risk for: inability to function and rapid decompensation Time Spent With Patient Time: Total time managing care of this patient today ____ minutes.
[2024-09-30] MEDS: Nicotine 21 MG PATCH.TD24 TRANSDERMA (13:11)
[2024-09-30] MEDS: NaPROXEN 500 MG TABLET PO (13:43)
[2024-09-30 14:02] VITALS: BP 136/62; PULSE 77
[2024-09-30] MEDS: Magnesium Hydrox/Alum Hydrox 30 ML ORAL.SUSP PO (18:19)
[2024-09-30 20:00] VITALS: BP 133/75; PULSE 69; TEMP 36.6; O2SAT 98
[2024-09-30] MEDS: traZODone HCL 100 MG TABLET 300 MG PO (21:22)
[2024-09-30] MEDS: QUEtiapine Fumarate 100 MG TABLET PO (21:23)
[2024-09-30 21:24] VITALS: BP 133/75; BP 135/70
[2024-09-30] MEDS: Prazosin HCL 1 MG CAPSULE 2 MG PO (21:24)
[2024-09-30 21:25] VITALS: BP 135/70; PULSE 84
[2024-09-30] MEDS: Divalproex Sodium ER 250 MG TAB.ER.24H 1250 MG PO (21:27)
[2024-10-01] MEDS: hydrOXYzine HCL 50 MG TABLET PO ×3 (01:10→21:02)
[2024-10-01] MEDS: traZODone HCL 50 MG TABLET PO (01:10)
[2024-10-01 08:00] VITALS: BP 115/56; PULSE 65; TEMP 36.6; O2SAT 95
[2024-10-01] MEDS: cloNIDine HCL 0.1 MG TABLET PO ×3 (08:35→21:02)
[2024-10-01] MEDS: Gabapentin 300 MG CAPSULE 600 MG PO ×3 (08:35→21:01)
[2024-10-01] MEDS: busPIRone HCl 5 MG TABLET 15 MG PO ×3 (08:35→21:02)
[2024-10-01] MEDS: Propranolol HCL 10 MG TABLET 5 MG PO (08:36)
[2024-10-01] MEDS: Cholecalciferol (Vitamin D3) 25 MCG TABLET 50 MCG PO (08:36)
--- NOTE | 2024-10-01 09:42 | P.PNPSI_ITS ---
Subjective Subjective Date of Service: 10/01/24 Reason For Visit: depression Interim History: met with pt; discussed with team; reviewed chart pt says he's feeling a little better; still depressed but less so and more hopeful. Pt feels medications are helping; depakote recently increased; discussed trying clonidine instead of propranol. He also wants off Seorquel and agrees to make it a prn Mental Status Exam Mental Status Exam Narrative: Pt is alert and oriented; behavior is cooperative,?more friendly, calm; patient is not in distress; dressed in casual attire adequate hygiene; mood is described as better and affect congruent,?calmer; eye contact appropriate; Speech is normal rate, volume and prosody and not pressured; no psychomotor agitation present; thought process is goal directed,?logical,?though?concrete; Thought content is on tx; otherwise pertinent to relevant topics and without any delusional content, paranoid ideations or grandiosity; no SI;?no?HI. There is no evidence of perceptual disturbance. Patients insight and judgment?impaired, but improving. Diagnostics Vital Signs (24Hr): Vital Signs - 24 hr 09/30/24 14:02 09/30/24 20:00 09/30/24 21:24 Temperature 97.8 F Pulse Rate 77 69 Blood Pressure 136/62 133/75 135/70 Pulse Oximetry 98 Oxygen Delivery Method Room Air 09/30/24 21:24 09/30/24 21:25 10/01/24 08:00 Temperature 97.9 F Pulse Rate 84 65 Blood Pressure 133/75 135/70 115/56 L Pulse Oximetry 95 Oxygen Delivery Method Room Air BMI result Body Mass Index 29.1 Labs 09/25/24 13:13 09/25/24 13:13 Labs: Laboratory Results - last 48 hr 09/30/24 08:05 Total Bilirubin 0.4 Direct Bilirubin 0.2 AST 21 ALT 20 Alkaline Phosphatase 70 Ammonia 75 H Total Protein 6.5 Albumin 3.5 Hold Yellow Top See Note Valproic Acid 50.9 Medications Medications Current Medications Acetaminophen (Acetaminophen 325 Mg Tablet) 650 mg PO Q6H PRN PRN Reason: Headache/Pain Mild Scale (1-3) Last Admin: 09/30/24 10:53 Dose: 650 mg Al Hydroxide/Mg Hydroxide (Magnesium Hydrox/Alum Hydrox 30 Ml Oral.Susp) 30 ml PO Q6H PRN PRN Reason: Heartburn/Nausea Last Admin: 09/30/24 18:19 Dose: 30 ml Buspirone HCl (Buspirone Hcl 5 Mg Tablet) 15 mg PO TID YOBANI Last Admin: 10/01/24 08:35 Dose: 15 mg Clonidine HCl (Clonidine Hcl 0.1 Mg Tablet) 0.1 mg PO BID YOBANI; Protocol Last Admin: 10/01/24 08:35 Dose: 0.1 mg Divalproex Sodium (Divalproex Sodium Er 250 Mg Tab.Er.24h) 1,250 mg PO BEDTIME YOBANI Last Admin: 09/30/24 21:27 Dose: 1,250 mg Gabapentin (Gabapentin 300 Mg Capsule) 600 mg PO TID YOBANI Last Admin: 10/01/24 08:35 Dose: 600 mg Hydroxyzine HCl (Hydroxyzine Hcl 50 Mg Tablet) 50 mg PO Q6H PRN PRN Reason: Anxiety Last Admin: 10/01/24 01:10 Dose: 50 mg Magnesium Hydroxide (Milk Of Magnesia 30 Ml Oral.Susp) 30 ml PO DAILY PRN PRN Reason: Constipation Naproxen (Naproxen 500 Mg Tablet) 500 mg PO BID PRN PRN Reason: shoulder pain Last Admin: 09/30/24 13:43 Dose: 500 mg Nicotine (Nicotine 21 Mg Patch.Td24) 21 mg TRANSDERMA DAILY PRN PRN Reason: smoking cessation Last Admin: 09/30/24 13:11 Dose: 21 mg Nicotine Polacrilex (Nicotine Polacrilex 2 Mg Gum) 4 mg BUCCAL Q2H PRN PRN Reason: Nicotine Cravings Prazosin HCl (Prazosin Hcl 1 Mg Capsule) 2 mg PO BEDTIME YOBANI; Protocol Last Admin: 09/30/24 21:24 Dose: 2 mg Propranolol HCl (Propranolol Hcl 10 Mg Tablet) 5 mg PO TID YOBANI; Protocol Last Admin: 10/01/24 08:36 Dose: 5 mg Quetiapine Fumarate (Quetiapine Fumarate 100 Mg Tablet) 100 mg PO BEDTIME YOBANI Last Admin: 09/30/24 21:23 Dose: 100 mg Trazodone HCl (Trazodone Hcl 50 Mg Tablet) 50 mg PO BEDTIME PRN PRN Reason: Insomnia Last Admin: 10/01/24 01:10 Dose: 50 mg Trazodone HCl (Trazodone Hcl 100 Mg Tablet) 300 mg PO BEDTIME YOBANI Last Admin: 09/30/24 21:22 Dose: 300 mg Vitamin D (Cholecalciferol (Vitamin D3) 25 Mcg Tablet) 50 mcg PO DAILY [facility] Last Admin: 10/01/24 08:36 Dose: 50 mcg Allergies Allergies Allergy/AdvReac Type Severity Reaction Status Date / Time duloxetine [From CYMBALTA] Allergy Unknown RASH Verified 09/25/24 12:39 shrimp Allergy Anaphylaxis Verified 09/25/24 12:39 Assessment & Plan Assessment & Plan (1) Bipolar disorder, now depressed: Qualifiers: Current episode severity: unspecified Qualified Code(s): F31.30 - Bipolar disorder, current episode depressed, mild or moderate severity, unspecified Status: Acute Code(s): F31.30 - Bipolar disorder, current episode depressed, mild or moderate severity, unspecified (2) Cocaine use disorder: Status: Acute Code(s): F14.10 - Cocaine abuse, uncomplicated (3) Alcohol use disorder: Status: Acute Code(s): F10.90 - Alcohol use, unspecified, uncomplicated Plan 09/27 lowered clonidine 0.1mg po BID, scheduled propanolol 5mg po TID. d/c trazodone 150mg po qhs, start seroquel 100mg po qhs.continue depakote. 09/28 increase gabapentin to 600mg po TID. seroquel 100mg po TID. propanolol 20mg po TID, wants trazodone back 200mg po qhs. will check depakote and ammonia close to nighttime dose. consider naltrexon, may help with cravings 09/29: Depakote level tomorrow. Consider increase based on results. Increase Trazodone 300 mg HS. Start Vit D. 08/31: Increase Depakote to 1,250 mg HS. Start Aleve. Start Prazossin 2 mg HS. 10/01pt says he's feeling a little better; still depressed but less so and more hopeful. Pt feels medications are helping; depakote recently increased; discussed trying clonidine instead of propranol. He also wants off Seorquel and agrees to make it a prn -ordered labs Patient educated on: diagnosis, medication risk/benefits and substance abuse Informed Consent: understands Reason for continued inpatient stay Substantial Risk for: rapid decompensation Time Spent With Patient Time: Total time managing care of this patient today ____ minutes.
[2024-10-01 10:13] VITALS: BP 128/80
[2024-10-01] MEDS: NaPROXEN 500 MG TABLET PO ×2 (10:25→16:00)
[2024-10-01] MEDS: Nicotine 21 MG PATCH.TD24 TRANSDERMA (11:54)
[2024-10-01] MEDS: Magnesium Hydrox/Alum Hydrox 30 ML ORAL.SUSP PO (12:37)
[2024-10-01 15:40] VITALS: BP 136/69
[2024-10-01 20:00] VITALS: BP 136/78; PULSE 76; RESP 16; TEMP 36.8; O2SAT 99
[2024-10-01 21:02] VITALS: BP 153/95
[2024-10-01] MEDS: traZODone HCL 100 MG TABLET 300 MG PO (21:02)
[2024-10-01] MEDS: Divalproex Sodium ER 250 MG TAB.ER.24H 1250 MG PO (21:02)
[2024-10-02] MEDS: traZODone HCL 50 MG TABLET PO (01:50)
[2024-10-02 08:00] VITALS: BP 116/69; PULSE 57; RESP 18; TEMP 36.7; O2SAT 97
[2024-10-02] MEDS: NaPROXEN 500 MG TABLET PO ×2 (08:39→14:41)
[2024-10-02] MEDS: Cholecalciferol (Vitamin D3) 25 MCG TABLET 50 MCG PO (08:39)
[2024-10-02] MEDS: busPIRone HCl 5 MG TABLET 15 MG PO ×3 (08:39→20:48)
[2024-10-02] MEDS: Gabapentin 300 MG CAPSULE 600 MG PO ×3 (08:40→20:48)
[2024-10-02] MEDS: cloNIDine HCL 0.1 MG TABLET PO ×3 (08:40→20:46)
--- NOTE | 2024-10-02 08:55 | P.PNPSI_ITS ---
Subjective Subjective Date of Service: 10/02/24 Reason For Visit: depression Interim History: Met with patient; discussed with team very anxious; pt thought group underwriter was not going to see him today and convinced himself that group underwriter did not care about him; pt said he got so angry he could not eat and cancelled his visitor. Pt able to discuss this however and realized it's been a life long misunderstanding of interactions which he agrees originated with childhood trauma. Pt says he wants to learn how to stop doing this. discussed meds; agrees to increase depakote; also agrees to start Vraylar. Mental Status Exam Mental Status Exam Narrative: Pt is alert and oriented; behavior is cooperative,?more friendly, calm; patient is not in distress; dressed in casual attire adequate hygiene; mood is described as better and affect congruent,?calmer; eye contact appropriate; Speech is normal rate, volume and prosody and not pressured; no psychomotor agitation present; thought process is goal directed,?logical,?though?concrete; Thought content is on tx; otherwise pertinent to relevant topics and without any delusional content, paranoid ideations or grandiosity; no SI;?no?HI. There is no evidence of perceptual disturbance. Patients insight and judgment?impaired, but improving. Diagnostics Vital Signs (24Hr): Vital Signs - 24 hr 10/01/24 10:13 10/01/24 15:40 10/01/24 20:00 Temperature 98.3 F Pulse Rate 76 Respiratory Rate 16 Blood Pressure 128/80 136/69 136/78 Pulse Oximetry 99 Oxygen Delivery Method Room Air 10/01/24 21:02 10/02/24 08:00 Temperature 98.0 F Pulse Rate 57 Respiratory Rate 18 Blood Pressure 153/95 H 116/69 Pulse Oximetry 97 Oxygen Delivery Method Room Air BMI result Body Mass Index 29.1 Labs 09/25/24 13:13 09/25/24 13:13 Medications Medications Current Medications Acetaminophen (Acetaminophen 325 Mg Tablet) 650 mg PO Q6H PRN PRN Reason: Headache/Pain Mild Scale (1-3) Last Admin: 09/30/24 10:53 Dose: 650 mg Al Hydroxide/Mg Hydroxide (Magnesium Hydrox/Alum Hydrox 30 Ml Oral.Susp) 30 ml PO Q6H PRN PRN Reason: Heartburn/Nausea Last Admin: 10/01/24 12:37 Dose: 30 ml Buspirone HCl (Buspirone Hcl 5 Mg Tablet) 15 mg PO TID YOBANI Last Admin: 10/02/24 08:39 Dose: 15 mg Clonidine HCl (Clonidine Hcl 0.1 Mg Tablet) 0.1 mg PO TID [facility]; Protocol Last Admin: 10/02/24 08:40 Dose: 0.1 mg Divalproex Sodium (Divalproex Sodium Er 250 Mg Tab.Er.24h) 1,250 mg PO BEDTIME YOBANI Last Admin: 10/01/24 21:02 Dose: 1,250 mg Gabapentin (Gabapentin 300 Mg Capsule) 600 mg PO TID YOBANI Last Admin: 10/02/24 08:40 Dose: 600 mg Hydroxyzine HCl (Hydroxyzine Hcl 50 Mg Tablet) 50 mg PO Q6H PRN PRN Reason: Anxiety Last Admin: 10/01/24 21:02 Dose: 50 mg Loperamide HCl (Loperamide Hcl 2 Mg Capsule) 2 mg PO Q6H PRN PRN Reason: Loose Stool Magnesium Hydroxide (Milk Of Magnesia 30 Ml Oral.Susp) 30 ml PO DAILY PRN PRN Reason: Constipation Naproxen (Naproxen 500 Mg Tablet) 500 mg PO BID PRN PRN Reason: shoulder pain Last Admin: 10/02/24 08:39 Dose: 500 mg Nicotine (Nicotine 21 Mg Patch.Td24) 21 mg TRANSDERMA DAILY PRN PRN Reason: smoking cessation Last Admin: 10/01/24 11:54 Dose: 21 mg Nicotine Polacrilex (Nicotine Polacrilex 2 Mg Gum) 4 mg BUCCAL Q2H PRN PRN Reason: Nicotine Cravings Prazosin HCl (Prazosin Hcl 1 Mg Capsule) 2 mg PO BEDTIME YOBANI; Protocol Last Admin: 10/01/24 21:38 Dose: Not Given Quetiapine Fumarate (Quetiapine Fumarate 100 Mg Tablet) 100 mg PO BEDTIME PRN PRN Reason: for continued insomnia Trazodone HCl (Trazodone Hcl 50 Mg Tablet) 50 mg PO BEDTIME PRN PRN Reason: Insomnia Last Admin: 10/02/24 01:50 Dose: 50 mg Trazodone HCl (Trazodone Hcl 100 Mg Tablet) 300 mg PO BEDTIME YOBANI Last Admin: 10/01/24 21:02 Dose: 300 mg Vitamin D (Cholecalciferol (Vitamin D3) 25 Mcg Tablet) 50 mcg PO DAILY YOBANI Last Admin: 10/02/24 08:39 Dose: 50 mcg Allergies Allergies Allergy/AdvReac Type Severity Reaction Status Date / Time duloxetine [From CYMBALTA] Allergy Unknown RASH Verified 09/25/24 12:39 shrimp Allergy Anaphylaxis Verified 09/25/24 12:39 Assessment & Plan Assessment & Plan (1) Bipolar disorder, now depressed: Qualifiers: Current episode severity: unspecified Qualified Code(s): F31.30 - Bipolar disorder, current episode depressed, mild or moderate severity, unspecified Status: Acute Code(s): F31.30 - Bipolar disorder, current episode depressed, mild or moderate severity, unspecified (2) Cocaine use disorder: Status: Acute Code(s): F14.10 - Cocaine abuse, uncomplicated (3) Alcohol use disorder: Status: Acute Code(s): F10.90 - Alcohol use, unspecified, uncomplicated Plan 09/27 lowered clonidine 0.1mg po BID, scheduled propanolol 5mg po TID. d/c trazodone 150mg po qhs, start seroquel 100mg po qhs.continue depakote. 09/28 increase gabapentin to 600mg po TID. seroquel 100mg po TID. propanolol 20mg po TID, wants trazodone back 200mg po qhs. will check depakote and ammonia close to nighttime dose. consider naltrexon, may help with cravings 09/29: Depakote level tomorrow. Consider increase based on results. Increase Trazodone 300 mg HS. Start Vit D. 08/31: Increase Depakote to 1,250 mg HS. Start Aleve. Start Prazossin 2 mg HS. 10/01pt says he's feeling a little better; still depressed but less so and more hopeful. Pt feels medications are helping; depakote recently increased; discussed trying clonidine instead of propranol. He also wants off Seorquel and agrees to make it a prn -ordered labs 10/02 self-reflecting; realizing hx of trauma affecting relationships; agrees to increase depakote, start vraylar Plan: increase depakote er to 1500mg start vraylar to augment depakote for bipolar Patient educated on: diagnosis, medication risk/benefits and therapeutic strategies Informed Consent: understands Reason for continued inpatient stay Substantial Risk for: stable for discharge, rapid decompensation and med/psych decompensation Time Spent With Patient Time: Total time managing care of this patient today ____ minutes.
[2024-10-02] MEDS: hydrOXYzine HCL 50 MG TABLET PO ×3 (11:21→23:38)
[2024-10-02 14:15] VITALS: BP 114/68
[2024-10-02] MEDS: Nicotine 21 MG PATCH.TD24 TRANSDERMA (14:22)
[2024-10-02] MEDS: Sodium Chloride 0.65 % Nasal 44 ML SPRBTL 1 SPRAY NOSTRIL-B (14:39)
[2024-10-02 20:00] VITALS: BP 124/72; PULSE 67; RESP 16; TEMP 36.8; O2SAT 97
[2024-10-02] MEDS: Cariprazine HCl 1.5 MG CAPSULE PO (20:03)
[2024-10-02] MEDS: Acetaminophen 325 MG TABLET 650 MG PO (20:04)
[2024-10-02 20:46] VITALS: BP 127/73
[2024-10-02] MEDS: traZODone HCL 100 MG TABLET 300 MG PO (20:46)
[2024-10-02] MEDS: Divalproex Sodium ER 500 MG TAB.ER.24H 1500 MG PO (20:48)
[2024-10-02] MEDS: Loperamide HCl 2 MG CAPSULE PO (23:38)
[2024-10-02] MEDS: QUEtiapine Fumarate 100 MG TABLET PO (23:41)
[2024-10-03] MEDS: Magnesium Hydrox/Alum Hydrox 30 ML ORAL.SUSP PO ×2 (02:35→16:47)
[2024-10-03] MEDS: Sodium Chloride 0.65 % Nasal 44 ML SPRBTL 1 SPRAY NOSTRIL-B ×4 (02:37→15:31)
[2024-10-03] MEDS: traZODone HCL 50 MG TABLET PO (02:40)
--- NOTE | 2024-10-03 05:39 | PC.NURSE ---
Patient requested medication for one episode of diarrhea. Imodium given with positive effect. Patient said he thinks the hospital food might be the cause.
[2024-10-03] MEDS: cloNIDine HCL 0.1 MG TABLET PO ×3 (08:12→21:00)
[2024-10-03] MEDS: busPIRone HCl 5 MG TABLET 15 MG PO ×3 (08:12→20:53)
[2024-10-03] MEDS: Cariprazine HCl 1.5 MG CAPSULE PO (08:12)
[2024-10-03] MEDS: Cholecalciferol (Vitamin D3) 25 MCG TABLET 50 MCG PO (08:13)
[2024-10-03] MEDS: Gabapentin 300 MG CAPSULE 600 MG PO ×3 (08:13→20:57)
[2024-10-03 08:23] VITALS: BP 110/65; PULSE 78; RESP 18; TEMP 36.4; O2SAT 99
[2024-10-03] MEDS: NaPROXEN 500 MG TABLET PO ×2 (08:32→21:00)
--- NOTE | 2024-10-03 09:13 | HO.PSYCHPN ---
Subjective Subjective Date of Service: 10/03/24 Reason For Visit: depression Interim History: Met with patient; discussed with team Patient shared that he thought quite a bit about yesterday's and realizes that he has misconceptions daily and with all different people, misinterpreting their behaviors as negative towards himself when really they are not. Patient shared that he has constant negative self-deprecating thoughts that he struggles with. Patient very much wanted to continue with medication management and wanted to add a medication to help with depression anxiety; given that he is having trouble sleeping, keno writer reviewed risks/side effects and patient agreed to start mirtazapine. Did not want to continue with Seroquel since it caused weight gain. Reviewed risks/side effects of regimen including antipsychotics and patient agrees to remain on Vraylar -discussed going to groups; patient says he is very anxious at groups and so has typically avoided. He says however that he will push himself to go Mental Status Exam Mental Status Exam Narrative: Pt is alert and oriented; behavior is cooperative,?more friendly, calm; patient is not in distress; dressed in casual attire adequate hygiene; mood is described as better...anxious and affect congruent,?calmer; eye contact appropriate; Speech is normal rate, volume and prosody and not pressured; no psychomotor agitation present; thought process is goal directed,?logical,?though?concrete; Thought content is on tx, hx of trauma and its effects; otherwise pertinent to relevant topics and without any delusional content, paranoid ideations or grandiosity; no SI;?no?HI. There is no evidence of perceptual disturbance. Patients insight and judgment?impaired, but improving. Diagnostics Vital Signs (24Hr): Vital Signs - 24 hr 10/02/24 14:15 10/02/24 20:00 10/02/24 20:46 Temperature 98.2 F Pulse Rate 67 Respiratory Rate 16 Blood Pressure 114/68 124/72 127/73 Pulse Oximetry 97 Oxygen Delivery Method Room Air 10/03/24 08:23 Temperature 97.5 F Pulse Rate 78 Respiratory Rate 18 Blood Pressure 110/65 Pulse Oximetry 99 Oxygen Delivery Method Room Air BMI result Body Mass Index 29.1 Labs 09/25/24 13:13 09/25/24 13:13 Medications Medications Current Medications Acetaminophen (Acetaminophen 325 Mg Tablet) 650 mg PO Q6H PRN PRN Reason: Headache/Pain Mild Scale (1-3) Last Admin: 10/02/24 20:04 Dose: 650 mg Al Hydroxide/Mg Hydroxide (Magnesium Hydrox/Alum Hydrox 30 Ml Oral.Susp) 30 ml PO Q6H PRN PRN Reason: Heartburn/Nausea Last Admin: 10/03/24 02:35 Dose: 30 ml Buspirone HCl (Buspirone Hcl 5 Mg Tablet) 15 mg PO TID [facility] Last Admin: 10/03/24 08:12 Dose: 15 mg Cariprazine (Cariprazine Hcl 1.5 Mg Capsule) 1.5 mg PO DAILY [facility] Last Admin: 10/03/24 08:12 Dose: 1.5 mg Clonidine HCl (Clonidine Hcl 0.1 Mg Tablet) 0.1 mg PO TID [facility]; Protocol Last Admin: 10/03/24 08:12 Dose: 0.1 mg Divalproex Sodium (Divalproex Sodium Er 500 Mg Tab.Er.24h) 1,500 mg PO BEDTIME [facility] Last Admin: 10/02/24 20:48 Dose: 1,500 mg Gabapentin (Gabapentin 300 Mg Capsule) 600 mg PO TID [facility] Last Admin: 10/03/24 08:13 Dose: 600 mg Hydroxyzine HCl (Hydroxyzine Hcl 50 Mg Tablet) 50 mg PO Q6H PRN PRN Reason: Anxiety Last Admin: 10/02/24 23:38 Dose: 50 mg Loperamide HCl (Loperamide Hcl 2 Mg Capsule) 2 mg PO Q6H PRN PRN Reason: Loose Stool Last Admin: 10/02/24 23:38 Dose: 2 mg Magnesium Hydroxide (Milk Of Magnesia 30 Ml Oral.Susp) 30 ml PO DAILY PRN PRN Reason: Constipation Naproxen (Naproxen 500 Mg Tablet) 500 mg PO BID PRN PRN Reason: shoulder pain Last Admin: 10/03/24 08:32 Dose: 500 mg Nicotine (Nicotine 21 Mg Patch.Td24) 21 mg TRANSDERMA DAILY PRN PRN Reason: smoking cessation Last Admin: 10/02/24 14:22 Dose: 21 mg Nicotine Polacrilex (Nicotine Polacrilex 2 Mg Gum) 4 mg BUCCAL Q2H PRN PRN Reason: Nicotine Cravings Quetiapine Fumarate (Quetiapine Fumarate 100 Mg Tablet) 100 mg PO BEDTIME PRN PRN Reason: for continued insomnia Last Admin: 10/02/24 23:41 Dose: 100 mg Sodium Chloride (Sodium Chloride 0.65 % Nasal 44 Ml Sprbtl) 1 spray NOSTRIL-B Q1H PRN PRN Reason: dry nares Last Admin: 10/03/24 08:16 Dose: 1 spray Trazodone HCl (Trazodone Hcl 50 Mg Tablet) 50 mg PO BEDTIME PRN PRN Reason: Insomnia Last Admin: 10/03/24 02:40 Dose: 50 mg Trazodone HCl (Trazodone Hcl 100 Mg Tablet) 300 mg PO BEDTIME [facility] Last Admin: 10/02/24 20:46 Dose: 300 mg Vitamin D (Cholecalciferol (Vitamin D3) 25 Mcg Tablet) 50 mcg PO DAILY [facility] Last Admin: 10/03/24 08:13 Dose: 50 mcg Allergies Allergies Allergy/AdvReac Type Severity Reaction Status Date / Time duloxetine [From CYMBALTA] Allergy Unknown RASH Verified 09/25/24 12:39 shrimp Allergy Anaphylaxis Verified 09/25/24 12:39 Assessment & Plan Assessment & Plan (1) Bipolar disorder, now depressed: Qualifiers: Current episode severity: unspecified Qualified Code(s): F31.30 - Bipolar disorder, current episode depressed, mild or moderate severity, unspecified Status: Acute Code(s): F31.30 - Bipolar disorder, current episode depressed, mild or moderate severity, unspecified (2) Cocaine use disorder: Status: Acute Code(s): F14.10 - Cocaine abuse, uncomplicated (3) Alcohol use disorder: Status: Acute Code(s): F10.90 - Alcohol use, unspecified, uncomplicated Plan 09/27 lowered clonidine 0.1mg po BID, scheduled propanolol 5mg po TID. d/c trazodone 150mg po qhs, start seroquel 100mg po qhs.continue depakote. 09/28 increase gabapentin to 600mg po TID. seroquel 100mg po TID. propanolol 20mg po TID, wants trazodone back 200mg po qhs. will check depakote and ammonia close to nighttime dose. consider naltrexon, may help with cravings 09/29: Depakote level tomorrow. Consider increase based on results. Increase Trazodone 300 mg HS. Start Vit D. 10/11: Increase Depakote to 1,250 mg HS. Start Aleve. Start Prazossin 2 mg HS. 10/01pt says he's feeling a little better; still depressed but less so and more hopeful. Pt feels medications are helping; depakote recently increased; discussed trying clonidine instead of propranol. He also wants off Seorquel and agrees to make it a prn -ordered labs 10/02 self-reflecting; realizing hx of trauma affecting relationships; agrees to increase depakote, start vraylar 10/03 Patient shared that he thought quite a bit about yesterday's and realizes that he has misconceptions daily and with all different people, misinterpreting their behaviors as negative towards himself when really they are not. Patient shared that he has constant negative self-deprecating thoughts that he struggles with. Patient very much wanted to continue with medication management and wanted to add a medication to help with depression anxiety; given that he is having trouble sleeping, keno writer reviewed risks/side effects and patient agreed to start mirtazapine. Did not want to continue with Seroquel since it caused weight gain. Reviewed risks/side effects of regimen including antipsychotics and patient agrees to remain on Vraylar Plan: Continue increased dose of depakote er to 1500mg Continue Vraylar 1.5 mg to augment Depakote for bipolar depression Start mirtazapine 7.5 mg q.h.s. for help with depression/anxiety and also insomnia DC Seroquel; patient concern for weight gain Patient educated on: diagnosis, medication risk/benefits and therapeutic strategies Informed Consent: understands Reason for continued inpatient stay Substantial Risk for: stable for discharge and rapid decompensation Time Spent With Patient Time: Total time managing care of this patient today ____ minutes.
[2024-10-03] MEDS: Lidocaine 4 % Patch ADH..PATCH 2 PATCH TRANSDERMA (10:38)
[2024-10-03] MEDS: hydrOXYzine HCL 50 MG TABLET PO (12:16)
[2024-10-03 15:13] VITALS: BP 125/67
[2024-10-03] MEDS: Loperamide HCl 2 MG CAPSULE PO (17:59)
[2024-10-03 20:00] VITALS: BP 113/59; PULSE 66; TEMP 36.8; O2SAT 97
[2024-10-03] MEDS: traZODone HCL 100 MG TABLET 300 MG PO (20:54)
[2024-10-03] MEDS: Divalproex Sodium ER 500 MG TAB.ER.24H 1500 MG PO (20:55)
[2024-10-03] MEDS: Mirtazapine 7.5 MG TABLET PO (20:55)
[2024-10-03 21:00] VITALS: BP 113/59
[2024-10-04] MEDS: traZODone HCL 50 MG TABLET PO (02:38)
[2024-10-04] MEDS: hydrOXYzine HCL 50 MG TABLET PO ×3 (02:38→18:57)
[2024-10-04] MEDS: Sodium Chloride 0.65 % Nasal 44 ML SPRBTL 1 SPRAY NOSTRIL-B ×3 (02:39→21:51)
[2024-10-04] MEDS: busPIRone HCl 5 MG TABLET 15 MG PO ×3 (08:09→21:50)
[2024-10-04] MEDS: Cariprazine HCl 1.5 MG CAPSULE PO (08:09)
[2024-10-04] MEDS: cloNIDine HCL 0.1 MG TABLET PO ×4 (08:10→21:50)
[2024-10-04] MEDS: Cholecalciferol (Vitamin D3) 25 MCG TABLET 50 MCG PO (08:10)
[2024-10-04] MEDS: Gabapentin 300 MG CAPSULE 600 MG PO ×3 (08:10→21:49)
[2024-10-04] MEDS: Lidocaine 4 % Patch ADH..PATCH 2 PATCH TRANSDERMA (08:10)
[2024-10-04 09:01] VITALS: BP 126/78; PULSE 57; RESP 18; TEMP 36.3; O2SAT 97
[2024-10-04] MEDS: NaPROXEN 500 MG TABLET PO (11:01)
[2024-10-04] MEDS: Nicotine 21 MG PATCH.TD24 TRANSDERMA (11:02)
[2024-10-04 11:19] VITALS: BMI 30.3
[2024-10-04] MEDS: Magnesium Hydrox/Alum Hydrox 30 ML ORAL.SUSP PO (13:18)
[2024-10-04 13:20] VITALS: BP 128/70
[2024-10-04 14:48] VITALS: BP 111/63; PULSE 76
[2024-10-04] MEDS: Loperamide HCl 2 MG CAPSULE PO ×2 (15:00→21:52)
[2024-10-04 20:00] VITALS: BP 129/81; PULSE 70; O2SAT 97
[2024-10-04 21:50] VITALS: BP 129/81
[2024-10-04] MEDS: Mirtazapine 15 MG TABLET PO (21:50)
[2024-10-04] MEDS: traZODone HCL 100 MG TABLET 300 MG PO (21:50)
[2024-10-04] MEDS: Divalproex Sodium ER 500 MG TAB.ER.24H 1500 MG PO (21:51)
--- NOTE | 2024-10-04 22:56 | P.PNPSI_ITS ---
Subjective Subjective Date of Service: 10/04/24 Reason For Visit: depression Interim History: Met with patient; discussed with team Patient said he slept a little better with mirtazapine but wonders if it could be increased. Patient discussed that he has chronic insomnia and understands he will be difficult to treat; also wonders if insomnia has been worse since he quit smoking cannabis which was chronic. Says trazodone has helped in the past and only causes bad dreams for little while. Says last night no nightmares. Denies any SI and reports has had no attempt for years. Mental Status Exam Mental Status Exam Narrative: Pt is alert and oriented; behavior is cooperative,?more friendly, calm; patient is not in distress; dressed in casual attire adequate hygiene; mood is described as ok...anxious and affect congruent,?overall calmer; eye contact appropriate; Speech is normal rate, volume and prosody and not pressured; no psychomotor agitation present; thought process is goal directed,?logical,?though?concrete; Thought content is on tx, hx of trauma and its effects; otherwise pertinent to relevant topics and without any delusional content, paranoid ideations or grandiosity; no SI;?no?HI. There is no evidence of perceptual disturbance. Patients insight and judgment?fair Diagnostics Vital Signs (24Hr): Vital Signs - 24 hr 10/04/24 09:01 10/04/24 13:20 10/04/24 14:48 Temperature 97.4 F Pulse Rate 57 76 Respiratory Rate 18 Blood Pressure 126/78 128/70 111/63 Pulse Oximetry 97 Oxygen Delivery Method Room Air 10/04/24 21:50 Temperature Pulse Rate Respiratory Rate Blood Pressure 129/81 Pulse Oximetry Oxygen Delivery Method BMI result Body Mass Index 30.3 Labs 09/25/24 13:13 09/25/24 13:13 Medications Medications Current Medications Acetaminophen (Acetaminophen 325 Mg Tablet) 650 mg PO Q6H PRN PRN Reason: Headache/Pain Mild Scale (1-3) Last Admin: 10/02/24 20:04 Dose: 650 mg Al Hydroxide/Mg Hydroxide (Magnesium Hydrox/Alum Hydrox 30 Ml Oral.Susp) 30 ml PO Q6H PRN PRN Reason: Heartburn/Nausea Last Admin: 10/04/24 13:18 Dose: 30 ml Buspirone HCl (Buspirone Hcl 5 Mg Tablet) 15 mg PO TID [facility] Last Admin: 10/04/24 21:50 Dose: 15 mg Cariprazine (Cariprazine Hcl 1.5 Mg Capsule) 1.5 mg PO DAILY [facility] Last Admin: 10/04/24 08:09 Dose: 1.5 mg Clonidine HCl (Clonidine Hcl 0.1 Mg Tablet) 0.1 mg PO TID [facility]; Protocol Last Admin: 10/04/24 21:50 Dose: 0.1 mg Clonidine HCl (Clonidine Hcl 0.1 Mg Tablet) 0.1 mg PO Q4H PRN; Protocol PRN Reason: anxiety Divalproex Sodium (Divalproex Sodium Er 500 Mg Tab.Er.24h) 1,500 mg PO BEDTIME [facility] Last Admin: 10/04/24 21:51 Dose: 1,500 mg Gabapentin (Gabapentin 300 Mg Capsule) 600 mg PO TID [facility] Last Admin: 10/04/24 21:49 Dose: 600 mg Hydroxyzine HCl (Hydroxyzine Hcl 50 Mg Tablet) 50 mg PO Q6H PRN PRN Reason: Anxiety Last Admin: 10/04/24 18:57 Dose: 50 mg Lidocaine (Lidocaine 4 % Patch Adh..Patch) 2 patch TRANSDERMA DAILY [facility]; Protocol Last Admin: 10/04/24 08:10 Dose: 2 patch Loperamide HCl (Loperamide Hcl 2 Mg Capsule) 2 mg PO Q6H PRN PRN Reason: Loose Stool Last Admin: 10/04/24 21:52 Dose: 2 mg Magnesium Hydroxide (Milk Of Magnesia 30 Ml Oral.Susp) 30 ml PO DAILY PRN PRN Reason: Constipation Mirtazapine (Mirtazapine 15 Mg Tablet) 15 mg PO BEDTIME [facility] Last Admin: 10/04/24 21:50 Dose: 15 mg Naproxen (Naproxen 500 Mg Tablet) 500 mg PO BID PRN PRN Reason: shoulder pain Last Admin: 10/04/24 11:01 Dose: 500 mg Nicotine (Nicotine 21 Mg Patch.Td24) 21 mg TRANSDERMA DAILY PRN PRN Reason: smoking cessation Last Admin: 10/04/24 11:02 Dose: 21 mg Nicotine Polacrilex (Nicotine Polacrilex 2 Mg Gum) 4 mg BUCCAL Q2H PRN PRN Reason: Nicotine Cravings Sodium Chloride (Sodium Chloride 0.65 % Nasal 44 Ml Sprbtl) 1 spray NOSTRIL-B Q1H PRN PRN Reason: dry nares Last Admin: 10/04/24 21:51 Dose: 1 spray Trazodone HCl (Trazodone Hcl 50 Mg Tablet) 50 mg PO BEDTIME PRN PRN Reason: Insomnia Last Admin: 10/04/24 02:38 Dose: 50 mg Trazodone HCl (Trazodone Hcl 100 Mg Tablet) 300 mg PO BEDTIME [facility] Last Admin: 10/04/24 21:50 Dose: 300 mg Vitamin D (Cholecalciferol (Vitamin D3) 25 Mcg Tablet) 50 mcg PO DAILY [facility] Last Admin: 10/04/24 08:10 Dose: 50 mcg Allergies Allergies Allergy/AdvReac Type Severity Reaction Status Date / Time duloxetine [From CYMBALTA] Allergy Unknown RASH Verified 09/25/24 12:39 shrimp Allergy Anaphylaxis Verified 09/25/24 12:39 Assessment & Plan Assessment & Plan (1) Bipolar disorder, now depressed: Qualifiers: Current episode severity: unspecified Qualified Code(s): F31.30 - Bipolar disorder, current episode depressed, mild or moderate severity, unspecified Status: Acute Code(s): F31.30 - Bipolar disorder, current episode depressed, mild or moderate severity, unspecified (2) Cocaine use disorder: Status: Acute Code(s): F14.10 - Cocaine abuse, uncomplicated (3) Alcohol use disorder: Status: Acute Code(s): F10.90 - Alcohol use, unspecified, uncomplicated Plan 09/27 lowered clonidine 0.1mg po BID, scheduled propanolol 5mg po TID. d/c trazodone 150mg po qhs, start seroquel 100mg po qhs.continue depakote. 09/28 increase gabapentin to 600mg po TID. seroquel 100mg po TID. propanolol 20mg po TID, wants trazodone back 200mg po qhs. will check depakote and ammonia close to nighttime dose. consider naltrexon, may help with cravings 09/29: Depakote level tomorrow. Consider increase based on results. Increase Trazodone 300 mg HS. Start Vit D. 08/31: Increase Depakote to 1,250 mg HS. Start Aleve. Start Prazossin 2 mg HS. 10/01pt says he's feeling a little better; still depressed but less so and more hopeful. Pt feels medications are helping; depakote recently increased; discussed trying clonidine instead of propranol. He also wants off Seorquel and agrees to make it a prn -ordered labs 10/02 self-reflecting; realizing hx of trauma affecting relationships; agrees to increase depakote, start vraylar 10/03 Patient shared that he thought quite a bit about yesterday's and realizes that he has misconceptions daily and with all different people, misinterpreting their behaviors as negative towards himself when really they are not. Patient shared that he has constant negative self-deprecating thoughts that he struggles with. Patient very much wanted to continue with medication management and wanted to add a medication to help with depression anxiety; given that he is having trouble sleeping, ad writer reviewed risks/side effects and patient agreed to start mirtazapine. Did not want to continue with Seroquel since it caused weight gain. Reviewed risks/side effects of regimen including antipsychotics and patient agrees to remain on Vraylar 09/24 Patient said he slept a little better with mirtazapine but wonders if it could be increased. Patient discussed that he has chronic insomnia and understands he will be difficult to treat; also wonders if insomnia has been worse since he quit smoking cannabis which was chronic. Says trazodone has helped in the past and only causes bad dreams for little while. Says last night no nightmares. Denies any SI and reports has had no attempt for years. Plan: Continue increased dose of depakote er to 1500mg Continue Vraylar 1.5 mg to augment Depakote for bipolar depression Increase to mirtazapine 15 mg q.h.s. for help with depression/anxiety and also insomnia DC Seroquel; patient concern for weight gain Patient educated on: diagnosis, medication risk/benefits and therapeutic strategies Informed Consent: understands Reason for continued inpatient stay Substantial Risk for: stable for discharge and rapid decompensation Time Spent With Patient Time: Total time managing care of this patient today ____ minutes.
[2024-10-05] MEDS: traZODone HCL 50 MG TABLET PO (02:26)
[2024-10-05] MEDS: hydrOXYzine HCL 50 MG TABLET PO ×3 (02:27→19:16)
[2024-10-05 08:00] VITALS: BP 107/60; PULSE 70; RESP 17; TEMP 36.4; O2SAT 97
[2024-10-05] MEDS: busPIRone HCl 5 MG TABLET 15 MG PO ×3 (08:28→20:16)
[2024-10-05] MEDS: Sodium Chloride 0.65 % Nasal 44 ML SPRBTL 1 SPRAY NOSTRIL-B ×3 (08:28→20:27)
[2024-10-05] MEDS: Gabapentin 300 MG CAPSULE 600 MG PO ×3 (08:29→20:15)
[2024-10-05] MEDS: NaPROXEN 500 MG TABLET PO (08:29)
[2024-10-05] MEDS: Cholecalciferol (Vitamin D3) 25 MCG TABLET 50 MCG PO (08:30)
[2024-10-05] MEDS: cloNIDine HCL 0.1 MG TABLET PO ×4 (08:30→20:15)
[2024-10-05] MEDS: Cariprazine HCl 1.5 MG CAPSULE PO (08:31)
[2024-10-05] MEDS: Nicotine 21 MG PATCH.TD24 TRANSDERMA (08:31)
[2024-10-05] MEDS: Lidocaine 4 % Patch ADH..PATCH 2 PATCH TRANSDERMA (08:32)
--- NOTE | 2024-10-05 09:43 | HO.PSYCHPN ---
Subjective Subjective Date of Service: 10/05/24 Reason For Visit: depression Interim History: Met with patient; discussed with team Library Cataloging Technician reviewed labs and ammonia elevated; discussed with patient who agrees to lower Depakote back to a 1000 mg and instead increase Vraylar. Patient remains quite anxious and continues to struggle with insomnia. Reviewed options and patient decided that even though Seroquel causes weight gain, it is something that has always helped him sleep and he agrees to have it restarted with p.r.n. available. Mental Status Exam Mental Status Exam Narrative: Pt is alert and oriented; behavior is cooperative,?more friendly, calm; patient is not in distress; dressed in casual attire adequate hygiene; mood is described as ok...better...anxious affect congruent and overall calmer, brighter; eye contact appropriate; Speech is normal rate, volume and prosody and not pressured; no psychomotor agitation present; thought process is goal directed,?logical,?though?concrete; Thought content is on tx, hx of trauma and its effects; otherwise pertinent to relevant topics and without any delusional content, paranoid ideations or grandiosity; no SI;?no?HI. There is no evidence of perceptual disturbance. Patients insight and judgment?fair Diagnostics Vital Signs (24Hr): Vital Signs - 24 hr 10/04/24 13:20 10/04/24 14:48 10/04/24 20:00 Temperature Pulse Rate 76 70 Respiratory Rate Blood Pressure 128/70 111/63 129/81 Pulse Oximetry 97 Oxygen Delivery Method Room Air 10/04/24 21:50 10/05/24 08:00 Temperature 97.5 F Pulse Rate 70 Respiratory Rate 17 Blood Pressure 129/81 107/60 Pulse Oximetry 97 Oxygen Delivery Method Room Air BMI result Body Mass Index 30.3 Labs 09/25/24 13:13 09/25/24 13:13 Medications Medications Current Medications Acetaminophen (Acetaminophen 325 Mg Tablet) 650 mg PO Q6H PRN PRN Reason: Headache/Pain Mild Scale (1-3) Last Admin: 10/02/24 20:04 Dose: 650 mg Al Hydroxide/Mg Hydroxide (Magnesium Hydrox/Alum Hydrox 30 Ml Oral.Susp) 30 ml PO Q6H PRN PRN Reason: Heartburn/Nausea Last Admin: 10/04/24 13:18 Dose: 30 ml Buspirone HCl (Buspirone Hcl 5 Mg Tablet) 15 mg PO TID [facility] Last Admin: 10/05/24 08:28 Dose: 15 mg Cariprazine (Cariprazine Hcl 1.5 Mg Capsule) 1.5 mg PO DAILY [facility] Last Admin: 10/05/24 08:31 Dose: 1.5 mg Clonidine HCl (Clonidine Hcl 0.1 Mg Tablet) 0.1 mg PO TID [facility]; Protocol Last Admin: 10/05/24 08:30 Dose: 0.1 mg Clonidine HCl (Clonidine Hcl 0.1 Mg Tablet) 0.1 mg PO Q4H PRN; Protocol PRN Reason: anxiety Divalproex Sodium (Divalproex Sodium Er 500 Mg Tab.Er.24h) 1,500 mg PO BEDTIME [facility] Last Admin: 10/04/24 21:51 Dose: 1,500 mg Gabapentin (Gabapentin 300 Mg Capsule) 600 mg PO TID [facility] Last Admin: 10/05/24 08:29 Dose: 600 mg Hydroxyzine HCl (Hydroxyzine Hcl 50 Mg Tablet) 50 mg PO Q6H PRN PRN Reason: Anxiety Last Admin: 10/05/24 02:27 Dose: 50 mg Lidocaine (Lidocaine 4 % Patch Adh..Patch) 2 patch TRANSDERMA DAILY [facility]; Protocol Last Admin: 10/05/24 08:32 Dose: 2 patch Loperamide HCl (Loperamide Hcl 2 Mg Capsule) 2 mg PO Q6H PRN PRN Reason: Loose Stool Last Admin: 10/04/24 21:52 Dose: 2 mg Magnesium Hydroxide (Milk Of Magnesia 30 Ml Oral.Susp) 30 ml PO DAILY PRN PRN Reason: Constipation Mirtazapine (Mirtazapine 15 Mg Tablet) 15 mg PO BEDTIME [facility] Last Admin: 10/04/24 21:50 Dose: 15 mg Naproxen (Naproxen 500 Mg Tablet) 500 mg PO BID PRN PRN Reason: shoulder pain Last Admin: 10/05/24 08:29 Dose: 500 mg Nicotine (Nicotine 21 Mg Patch.Td24) 21 mg TRANSDERMA DAILY PRN PRN Reason: smoking cessation Last Admin: 10/05/24 08:31 Dose: 21 mg Nicotine Polacrilex (Nicotine Polacrilex 2 Mg Gum) 4 mg BUCCAL Q2H PRN PRN Reason: Nicotine Cravings Sodium Chloride (Sodium Chloride 0.65 % Nasal 44 Ml Sprbtl) 1 spray NOSTRIL-B Q1H PRN PRN Reason: dry nares Last Admin: 10/05/24 08:28 Dose: 1 spray Trazodone HCl (Trazodone Hcl 50 Mg Tablet) 50 mg PO BEDTIME PRN PRN Reason: Insomnia Last Admin: 10/05/24 02:26 Dose: 50 mg Trazodone HCl (Trazodone Hcl 100 Mg Tablet) 300 mg PO BEDTIME [facility] Last Admin: 10/04/24 21:50 Dose: 300 mg Vitamin D (Cholecalciferol (Vitamin D3) 25 Mcg Tablet) 50 mcg PO DAILY [facility] Last Admin: 10/05/24 08:30 Dose: 50 mcg Allergies Allergies Allergy/AdvReac Type Severity Reaction Status Date / Time duloxetine [From CYMBALTA] Allergy Unknown RASH Verified 09/25/24 12:39 shrimp Allergy Anaphylaxis Verified 09/25/24 12:39 Assessment & Plan Assessment & Plan (1) Bipolar disorder, now depressed: Qualifiers: Current episode severity: unspecified Qualified Code(s): F31.30 - Bipolar disorder, current episode depressed, mild or moderate severity, unspecified Status: Acute Code(s): F31.30 - Bipolar disorder, current episode depressed, mild or moderate severity, unspecified (2) Cocaine use disorder: Status: Acute Code(s): F14.10 - Cocaine abuse, uncomplicated (3) Alcohol use disorder: Status: Acute Code(s): F10.90 - Alcohol use, unspecified, uncomplicated Plan 09/27 lowered clonidine 0.1mg po BID, scheduled propanolol 5mg po TID. d/c trazodone 150mg po qhs, start seroquel 100mg po qhs.continue depakote. 09/28 increase gabapentin to 600mg po TID. seroquel 100mg po TID. propanolol 20mg po TID, wants trazodone back 200mg po qhs. will check depakote and ammonia close to nighttime dose. consider naltrexon, may help with cravings 09/29: Depakote level tomorrow. Consider increase based on results. Increase Trazodone 300 mg HS. Start Vit D. 08/31: Increase Depakote to 1,250 mg HS. Start Aleve. Start Prazossin 2 mg HS. 10/01pt says he's feeling a little better; still depressed but less so and more hopeful. Pt feels medications are helping; depakote recently increased; discussed trying clonidine instead of propranol. He also wants off Seorquel and agrees to make it a prn -ordered labs 10/02 self-reflecting; realizing hx of trauma affecting relationships; agrees to increase depakote, start [id number] Patient shared that he thought quite a bit about yesterday's and realizes that he has misconceptions daily and with all different people, misinterpreting their behaviors as negative towards himself when really they are not. Patient shared that he has constant negative self-deprecating thoughts that he struggles with. Patient very much wanted to continue with medication management and wanted to add a medication to help with depression anxiety; given that he is having trouble sleeping, automobile service writer reviewed risks/side effects and patient agreed to start mirtazapine. Did not want to continue with Seroquel since it caused weight gain. Reviewed risks/side effects of regimen including antipsychotics and patient agrees to remain on Vraylar 09/24 Patient said he slept a little better with mirtazapine but wonders if it could be increased. Patient discussed that he has chronic insomnia and understands he will be difficult to treat; also wonders if insomnia has been worse since he quit smoking cannabis which was chronic. Says trazodone has helped in the past and only causes bad dreams for little while. Says last night no nightmares. Denies any SI and reports has had no attempt for years. 10/05 Library Cataloging Technician reviewed labs and ammonia elevated; discussed with patient who agrees to lower Depakote back to a 1000 mg and instead increase Vraylar. Patient remains quite anxious and continues to struggle with insomnia. Reviewed options and patient decided that even though Seroquel causes weight gain, it is something that has always helped him sleep and he agrees to have it restarted with p.r.n. available. Plan: Lower back to depakote er 1000 mg; patient developed hyperammonemia Lactulose 20 mg 1 time dose Increase Vraylar to 3 mg since Depakote lowered Restart Seroquel 100 mg q.h.s. with p.r.n. available for continued insomnia Continue mirtazapine 15 mg q.h.s. for help with depression/anxiety and also insomnia Patient educated on: diagnosis, medication risk/benefits and therapeutic strategies Informed Consent: understands Reason for continued inpatient stay Substantial Risk for: stable for discharge and rapid decompensation Time Spent With Patient Time: Total time managing care of this patient today ____ minutes.
[2024-10-05 10:22] LABS: Valproate 67.8 mcg/mL (50.0-100.0)
[2024-10-05 10:25] LABS: Alanine Aminotransferase 28 U/L (0-40); Albumin Level 3.8 g/dL (3.5-5.0); Alkaline Phosphatase 74 U/L (39-117); Aspartate Amino Transferase 28 U/L (5-37); Bilirubin Direct 0.2 mg/dL (0.0-0.5); Bilirubin Total 0.4 mg/dL (0.0-1.0)
[2024-10-05 10:33] LABS: Ammonia 41 umol/L (13-55)
[2024-10-05] MEDS: Lactulose 20 GM/30 ML SOLUTION PO (11:13)
[2024-10-05 14:02] VITALS: BP 141/88
[2024-10-05 15:06] VITALS: BP 133/85
[2024-10-05] MEDS: Milk of Magnesia 30 ML ORAL.SUSP PO (17:56)
[2024-10-05 20:00] VITALS: BP 116/62; PULSE 100; RESP 16; TEMP 36.3; O2SAT 94
[2024-10-05] MEDS: QUEtiapine Fumarate 100 MG TABLET PO ×2 (20:15)
[2024-10-05] MEDS: Simethicone 80 MG TAB.CHEW PO (20:15)
[2024-10-05] MEDS: Divalproex Sodium ER 500 MG TAB.ER.24H 1000 MG PO (20:16)
[2024-10-05] MEDS: Mirtazapine 15 MG TABLET PO (20:16)
[2024-10-05] MEDS: traZODone HCL 100 MG TABLET 300 MG PO (22:42)
[2024-10-06] VITALS (8 sets, daily range): BP systolic 112–136; BP diastolic 59–82; PULSE 57–59; RESP 16–18; TEMP 36.3–36.4; O2SAT 97–98
[2024-10-06] MEDS: hydrOXYzine HCL 50 MG TABLET PO ×3 (02:07→20:55)
[2024-10-06] MEDS: cloNIDine HCL 0.1 MG TABLET PO ×8 (02:07→23:03)
[2024-10-06] MEDS: NaPROXEN 500 MG TABLET PO (06:42)
[2024-10-06] MEDS: Cholecalciferol (Vitamin D3) 25 MCG TABLET 50 MCG PO (08:23)
[2024-10-06] MEDS: Gabapentin 300 MG CAPSULE 600 MG PO ×3 (08:23→20:56)
[2024-10-06] MEDS: Cariprazine HCl 3 MG CAPSULE PO (08:23)
[2024-10-06] MEDS: busPIRone HCl 5 MG TABLET 15 MG PO ×3 (08:24→20:57)
[2024-10-06] MEDS: Sodium Chloride 0.65 % Nasal 44 ML SPRBTL 1 SPRAY NOSTRIL-B ×2 (08:48→13:26)
--- NOTE | 2024-10-06 08:49 | HO.PSYCHPN ---
Subjective Subjective Date of Service: 10/06/24 Reason For Visit: depression Subjective Notes: Conditional Voluntary Interim History: Patient was seen and discussed in rounds today. Records and plans were reviewed. He has been stable but had a poor night sleep last night. He was restarted on trazodone 300 mg and Seroquel 100 mg but did not want to increase it or change it to see what happens tonight. He asked some questions about his elevated ammonia. His liver enzymes are within range. He does have history of treated hep C. He is on lactulose. No SI. No changes were made today Review of Systems Review of Systems Yes all other systems are reviewed and are negative Mental Status Exam Mental Status Exam Narrative: In today's visit he is alert, oriented and pleasant. Normal speech. Good eye contact. Affect is appropriate and varied. No signs of psychosis. Cognitively is grossly intact. No SI. Judgment intact Diagnostics Vital Signs (24Hr): Vital Signs - 24 hr 10/05/24 14:02 10/05/24 15:06 10/05/24 20:00 Temperature 97.4 F Pulse Rate 100 Respiratory Rate 16 Blood Pressure 141/88 H 133/85 116/62 Pulse Oximetry 94 Oxygen Delivery Method Room Air 10/06/24 02:07 10/06/24 06:40 10/06/24 08:05 Temperature 97.6 F Pulse Rate 59 Respiratory Rate 18 Blood Pressure 136/82 112/66 119/59 L Pulse Oximetry 98 Oxygen Delivery Method Room Air BMI result Body Mass Index 30.3 Labs 09/25/24 13:13 09/25/24 13:13 Labs: Laboratory Results - last 48 hr 10/05/24 09:38 Total Bilirubin 0.4 Direct Bilirubin 0.2 AST 28 ALT 28 Alkaline Phosphatase 74 Ammonia 41 Total Protein 7.0 Albumin 3.8 Valproic Acid 67.8 Medications Medications Current Medications Acetaminophen (Acetaminophen 325 Mg Tablet) 650 mg PO Q6H PRN PRN Reason: Headache/Pain Mild Scale (1-3) Last Admin: 10/02/24 20:04 Dose: 650 mg Al Hydroxide/Mg Hydroxide (Magnesium Hydrox/Alum Hydrox 30 Ml Oral.Susp) 30 ml PO Q6H PRN PRN Reason: Heartburn/Nausea Last Admin: 10/04/24 13:18 Dose: 30 ml Buspirone HCl (Buspirone Hcl 5 Mg Tablet) 15 mg PO TID YOBANI Last Admin: 10/06/24 08:24 Dose: 15 mg Cariprazine (Cariprazine Hcl 3 Mg Capsule) 3 mg PO DAILY [facility] Last Admin: 10/06/24 08:23 Dose: 3 mg Clonidine HCl (Clonidine Hcl 0.1 Mg Tablet) 0.1 mg PO TID YOBANI; Protocol Last Admin: 10/06/24 08:23 Dose: 0.1 mg Clonidine HCl (Clonidine Hcl 0.1 Mg Tablet) 0.1 mg PO Q4H PRN; Protocol PRN Reason: anxiety Last Admin: 10/06/24 06:40 Dose: 0.1 mg Divalproex Sodium (Divalproex Sodium Er 500 Mg Tab.Er.24h) 1,000 mg PO BEDTIME YOBANI Last Admin: 10/05/24 20:16 Dose: 1,000 mg Gabapentin (Gabapentin 300 Mg Capsule) 600 mg PO TID YOBANI Last Admin: 10/06/24 08:23 Dose: 600 mg Hydroxyzine HCl (Hydroxyzine Hcl 50 Mg Tablet) 50 mg PO Q6H PRN PRN Reason: Anxiety Last Admin: 10/06/24 02:07 Dose: 50 mg Lidocaine (Lidocaine 4 % Patch Adh..Patch) 2 patch TRANSDERMA DAILY [facility]; Protocol Last Admin: 10/06/24 08:29 Dose: Not Given Loperamide HCl (Loperamide Hcl 2 Mg Capsule) 2 mg PO Q6H PRN PRN Reason: Loose Stool Last Admin: 10/04/24 21:52 Dose: 2 mg Magnesium Hydroxide (Milk Of Magnesia 30 Ml Oral.Susp) 30 ml PO DAILY PRN PRN Reason: Constipation Last Admin: 10/05/24 17:56 Dose: 30 ml Mirtazapine (Mirtazapine 15 Mg Tablet) 15 mg PO BEDTIME YOBANI Last Admin: 10/05/24 20:16 Dose: 15 mg Naproxen (Naproxen 500 Mg Tablet) 500 mg PO BID PRN PRN Reason: shoulder pain Last Admin: 10/06/24 06:42 Dose: 500 mg Nicotine (Nicotine 21 Mg Patch.Td24) 21 mg TRANSDERMA DAILY PRN PRN Reason: smoking cessation Last Admin: 10/05/24 08:31 Dose: 21 mg Nicotine Polacrilex (Nicotine Polacrilex 2 Mg Gum) 4 mg BUCCAL Q2H PRN PRN Reason: Nicotine Cravings Quetiapine Fumarate (Quetiapine Fumarate 100 Mg Tablet) 100 mg PO BEDTIME PRN PRN Reason: continued insomnia Last Admin: 10/05/24 20:15 Dose: 100 mg Quetiapine Fumarate (Quetiapine Fumarate 100 Mg Tablet) 100 mg PO BEDTIME [facility] Last Admin: 10/05/24 20:15 Dose: 100 mg Simethicone (Simethicone 80 Mg Tab.Chew) 80 mg PO BEDTIME [facility] Last Admin: 10/05/24 20:15 Dose: 80 mg Sodium Chloride (Sodium Chloride 0.65 % Nasal 44 Ml Sprbtl) 1 spray NOSTRIL-B Q1H PRN PRN Reason: dry nares Last Admin: 10/06/24 08:48 Dose: 1 spray Trazodone HCl (Trazodone Hcl 100 Mg Tablet) 300 mg PO BEDTIME [facility] Last Admin: 10/05/24 22:42 Dose: 300 mg Vitamin D (Cholecalciferol (Vitamin D3) 25 Mcg Tablet) 50 mcg PO DAILY [facility] Last Admin: 10/06/24 08:23 Dose: 50 mcg Allergies Allergies Allergy/AdvReac Type Severity Reaction Status Date / Time duloxetine [From CYMBALTA] Allergy Unknown RASH Verified 09/25/24 12:39 shrimp Allergy Anaphylaxis Verified 09/25/24 12:39 Assessment & Plan Assessment & Plan (1) Bipolar disorder, now depressed: Qualifiers: Current episode severity: unspecified Qualified Code(s): F31.30 - Bipolar disorder, current episode depressed, mild or moderate severity, unspecified Status: Acute Code(s): F31.30 - Bipolar disorder, current episode depressed, mild or moderate severity, unspecified (2) Cocaine use disorder: Status: Acute Code(s): F14.10 - Cocaine abuse, uncomplicated (3) Alcohol use disorder: Status: Acute Code(s): F10.90 - Alcohol use, unspecified, uncomplicated Plan 09/27 lowered clonidine 0.1mg po BID, scheduled propanolol 5mg po TID. d/c trazodone 150mg po qhs, start seroquel 100mg po qhs.continue depakote. 09/28 increase gabapentin to 600mg po TID. seroquel 100mg po TID. propanolol 20mg po TID, wants trazodone back 200mg po qhs. will check depakote and ammonia close to nighttime dose. consider naltrexon, may help with cravings 09/29: Depakote level tomorrow. Consider increase based on results. Increase Trazodone 300 mg HS. Start Vit D. 08/31: Increase Depakote to 1,250 mg HS. Start Aleve. Start Prazossin 2 mg HS. 10/01pt says he's feeling a little better; still depressed but less so and more hopeful. Pt feels medications are helping; depakote recently increased; discussed trying clonidine instead of propranol. He also wants off Seorquel and agrees to make it a prn -ordered labs 10/02 self-reflecting; realizing hx of trauma affecting relationships; agrees to increase depakote, start [id number] Patient shared that he thought quite a bit about yesterday's and realizes that he has misconceptions daily and with all different people, misinterpreting their behaviors as negative towards himself when really they are not. Patient shared that he has constant negative self-deprecating thoughts that he struggles with. Patient very much wanted to continue with medication management and wanted to add a medication to help with depression anxiety; given that he is having trouble sleeping, rewriter reviewed risks/side effects and patient agreed to start mirtazapine. Did not want to continue with Seroquel since it caused weight gain. Reviewed risks/side effects of regimen including antipsychotics and patient agrees to remain on Vraylar 09/24 Patient said he slept a little better with mirtazapine but wonders if it could be increased. Patient discussed that he has chronic insomnia and understands he will be difficult to treat; also wonders if insomnia has been worse since he quit smoking cannabis which was chronic. Says trazodone has helped in the past and only causes bad dreams for little while. Says last night no nightmares. Denies any SI and reports has had no attempt for years. 10/05 Hat Lacer reviewed labs and ammonia elevated; discussed with patient who agrees to lower Depakote back to a 1000 mg and instead increase Vraylar. Patient remains quite anxious and continues to struggle with insomnia. Reviewed options and patient decided that even though Seroquel causes weight gain, it is something that has always helped him sleep and he agrees to have it restarted with p.r.n. available. 10/06: Continue current regimen and plans try to stabilize sleep and if tonight he sleeps poorly I may switch him to low-dose Thorazine. Plan: Lower back to depakote er 1000 mg; patient developed hyperammonemia Lactulose 20 mg 1 time dose Increase Vraylar to 3 mg since Depakote lowered Restart Seroquel 100 mg q.h.s. with p.r.n. available for continued insomnia Continue mirtazapine 15 mg q.h.s. for help with depression/anxiety and also insomnia Reason for continued inpatient stay Substantial Risk for: med/psych decompensation Time Spent With Patient Time: Total time managing care of this patient today ____ minutes.
[2024-10-06] MEDS: Lidocaine 4 % Patch ADH..PATCH 2 PATCH TRANSDERMA (12:46)
[2024-10-06] MEDS: Acetaminophen 325 MG TABLET 650 MG PO (12:49)
[2024-10-06] MEDS: Milk of Magnesia 30 ML ORAL.SUSP PO (17:42)
[2024-10-06] MEDS: Mirtazapine 15 MG TABLET PO (20:55)
[2024-10-06] MEDS: Simethicone 80 MG TAB.CHEW PO (20:55)
[2024-10-06] MEDS: Divalproex Sodium ER 500 MG TAB.ER.24H 1000 MG PO (20:56)
[2024-10-06] MEDS: traZODone HCL 100 MG TABLET 300 MG PO (20:57)
[2024-10-06] MEDS: QUEtiapine Fumarate 100 MG TABLET PO (23:03)
[2024-10-07 04:25] VITALS: BP 108/69
[2024-10-07] MEDS: hydrOXYzine HCL 50 MG TABLET PO ×3 (04:25→18:53)
[2024-10-07] MEDS: cloNIDine HCL 0.1 MG TABLET PO ×5 (04:25→22:12)
[2024-10-07] MEDS: Sodium Chloride 0.65 % Nasal 44 ML SPRBTL 1 SPRAY NOSTRIL-B ×4 (04:25→20:19)
[2024-10-07 08:00] VITALS: BP 133/58; PULSE 57; RESP 16; TEMP 36.4; O2SAT 98
[2024-10-07] MEDS: busPIRone HCl 5 MG TABLET 15 MG PO ×3 (08:17→20:11)
[2024-10-07] MEDS: Cariprazine HCl 3 MG CAPSULE PO (08:17)
[2024-10-07] MEDS: Cholecalciferol (Vitamin D3) 25 MCG TABLET 50 MCG PO (08:17)
[2024-10-07] MEDS: Gabapentin 300 MG CAPSULE 600 MG PO ×3 (08:17→20:12)
[2024-10-07] MEDS: Lidocaine 4 % Patch ADH..PATCH 2 PATCH TRANSDERMA (08:37)
[2024-10-07 09:00] LABS: Ammonia 64 umol/L (13-55)
--- NOTE | 2024-10-07 09:13 | HO.PSYCHPN ---
Subjective Subjective Date of Service: 10/07/24 Reason For Visit: depression Subjective Notes: Conditional Voluntary Interim History: Patient was seen and discussed in rounds today. Records and plans were reviewed. He states that last night he had trouble sleeping again with a lot of interruptions. He also is overeating on the Seroquel. I discontinued the Seroquel, decrease the trazodone to 200 mg and added chlorpromazine 50 mg q.h.s.. Side effects including issues of orthostasis discussed. Also his ammonia level is going up and I put him back on lactulose 30 mg daily and he has been constipated. No SI. No other complaints. Review of Systems Review of Systems Constipation, sleep Yes all other systems are reviewed and are negative Mental Status Exam Mental Status Exam Narrative: In today's visit he is alert, oriented and pleasant. Normal speech. Good eye contact. Affect is appropriate and varied. No signs of psychosis. Able to move all limbs. No abnormalities of gait Cognitively is grossly intact. No SI. Judgment intact Diagnostics Vital Signs (24Hr): Vital Signs - 24 hr 10/06/24 12:19 10/06/24 15:47 10/06/24 16:46 Temperature Pulse Rate Respiratory Rate Blood Pressure 115/65 129/74 122/73 Pulse Oximetry Oxygen Delivery Method 10/06/24 19:54 10/06/24 23:03 10/07/24 04:25 Temperature 97.4 F Pulse Rate 57 Respiratory Rate 16 Blood Pressure 129/80 130/72 108/69 Pulse Oximetry 97 Oxygen Delivery Method Room Air 10/07/24 08:00 Temperature 97.5 F Pulse Rate 57 Respiratory Rate 16 Blood Pressure 133/58 L Pulse Oximetry 98 Oxygen Delivery Method Room Air BMI result Body Mass Index 30.3 Labs 09/25/24 13:13 09/25/24 13:13 Labs: Laboratory Results - last 48 hr 10/05/24 10/07/24 09:38 07:58 Total Bilirubin 0.4 Direct Bilirubin 0.2 AST 28 ALT 28 Alkaline Phosphatase 74 Ammonia 41 64 H Total Protein 7.0 Albumin 3.8 Valproic Acid 67.8 Medications Medications Current Medications Acetaminophen (Acetaminophen 325 Mg Tablet) 650 mg PO Q6H PRN PRN Reason: Headache/Pain Mild Scale (1-3) Last Admin: 10/06/24 12:49 Dose: 650 mg Al Hydroxide/Mg Hydroxide (Magnesium Hydrox/Alum Hydrox 30 Ml Oral.Susp) 30 ml PO Q6H PRN PRN Reason: Heartburn/Nausea Last Admin: 10/04/24 13:18 Dose: 30 ml Buspirone HCl (Buspirone Hcl 5 Mg Tablet) 15 mg PO TID [facility] Last Admin: 10/07/24 08:17 Dose: 15 mg Cariprazine (Cariprazine Hcl 3 Mg Capsule) 3 mg PO DAILY [facility] Last Admin: 10/07/24 08:17 Dose: 3 mg Clonidine HCl (Clonidine Hcl 0.1 Mg Tablet) 0.1 mg PO TID YOBANI; Protocol Last Admin: 10/07/24 08:17 Dose: 0.1 mg Clonidine HCl (Clonidine Hcl 0.1 Mg Tablet) 0.1 mg PO Q4H PRN; Protocol PRN Reason: anxiety Last Admin: 10/07/24 04:25 Dose: 0.1 mg Divalproex Sodium (Divalproex Sodium Er 500 Mg Tab.Er.24h) 1,000 mg PO BEDTIME [facility] Last Admin: 10/06/24 20:56 Dose: 1,000 mg Gabapentin (Gabapentin 300 Mg Capsule) 600 mg PO TID YOBANI Last Admin: 10/07/24 08:17 Dose: 600 mg Hydroxyzine HCl (Hydroxyzine Hcl 50 Mg Tablet) 50 mg PO Q6H PRN PRN Reason: Anxiety Last Admin: 10/07/24 04:25 Dose: 50 mg Lactulose (Lactulose 20 Gm/30 Ml Solution) 30 gm PO DAILY [facility] Lidocaine (Lidocaine 4 % Patch Adh..Patch) 2 patch TRANSDERMA DAILY [facility]; Protocol Last Admin: 10/07/24 08:37 Dose: 2 patch Loperamide HCl (Loperamide Hcl 2 Mg Capsule) 2 mg PO Q6H PRN PRN Reason: Loose Stool Last Admin: 10/04/24 21:52 Dose: 2 mg Magnesium Hydroxide (Milk Of Magnesia 30 Ml Oral.Susp) 30 ml PO DAILY PRN PRN Reason: Constipation Last Admin: 10/06/24 17:42 Dose: 30 ml Mirtazapine (Mirtazapine 15 Mg Tablet) 15 mg PO BEDTIME [facility] Last Admin: 10/06/24 20:55 Dose: 15 mg Naproxen (Naproxen 500 Mg Tablet) 500 mg PO BID PRN PRN Reason: shoulder pain Last Admin: 10/06/24 06:42 Dose: 500 mg Nicotine (Nicotine 21 Mg Patch.Td24) 21 mg TRANSDERMA DAILY PRN PRN Reason: smoking cessation Last Admin: 10/05/24 08:31 Dose: 21 mg Nicotine Polacrilex (Nicotine Polacrilex 2 Mg Gum) 4 mg BUCCAL Q2H PRN PRN Reason: Nicotine Cravings Quetiapine Fumarate (Quetiapine Fumarate 100 Mg Tablet) 100 mg PO BEDTIME PRN PRN Reason: continued insomnia Last Admin: 10/06/24 23:03 Dose: 100 mg Quetiapine Fumarate (Quetiapine Fumarate 100 Mg Tablet) 100 mg PO BEDTIME [facility]OB[facility] Last Admin: 10/06/24 20:58 Dose: Not Given Simethicone (Simethicone 80 Mg Tab.Chew) 80 mg PO BEDTIME [facility] Last Admin: 10/06/24 20:55 Dose: 80 mg Sodium Chloride (Sodium Chloride 0.65 % Nasal 44 Ml Sprbtl) 1 spray NOSTRIL-B Q1H PRN PRN Reason: dry nares Last Admin: 10/07/24 04:25 Dose: 1 spray Trazodone HCl (Trazodone Hcl 100 Mg Tablet) 300 mg PO BEDTIME [facility] Last Admin: 10/06/24 20:57 Dose: 200 mg Vitamin D (Cholecalciferol (Vitamin D3) 25 Mcg Tablet) 50 mcg PO DAILY [facility] Last Admin: 10/07/24 08:17 Dose: 50 mcg Allergies Allergies Allergy/AdvReac Type Severity Reaction Status Date / Time duloxetine [From CYMBALTA] Allergy Unknown RASH Verified 09/25/24 12:39 shrimp Allergy Anaphylaxis Verified 09/25/24 12:39 Assessment & Plan Assessment & Plan (1) Bipolar disorder, now depressed: Qualifiers: Current episode severity: unspecified Qualified Code(s): F31.30 - Bipolar disorder, current episode depressed, mild or moderate severity, unspecified Status: Acute Code(s): F31.30 - Bipolar disorder, current episode depressed, mild or moderate severity, unspecified (2) Cocaine use disorder: Status: Acute Code(s): F14.10 - Cocaine abuse, uncomplicated (3) Alcohol use disorder: Status: Acute Code(s): F10.90 - Alcohol use, unspecified, uncomplicated Plan 09/27 lowered clonidine 0.1mg po BID, scheduled propanolol 5mg po TID. d/c trazodone 150mg po qhs, start seroquel 100mg po qhs.continue depakote. 09/28 increase gabapentin to 600mg po TID. seroquel 100mg po TID. propanolol 20mg po TID, wants trazodone back 200mg po qhs. will check depakote and ammonia close to nighttime dose. consider naltrexon, may help with cravings 09/29: Depakote level tomorrow. Consider increase based on results. Increase Trazodone 300 mg HS. Start Vit D. 08/31: Increase Depakote to 1,250 mg HS. Start Aleve. Start Prazossin 2 mg HS. 10/01pt says he's feeling a little better; still depressed but less so and more hopeful. Pt feels medications are helping; depakote recently increased; discussed trying clonidine instead of propranol. He also wants off Seorquel and agrees to make it a prn -ordered labs 10/02 self-reflecting; realizing hx of trauma affecting relationships; agrees to increase depakote, start [id number] Patient shared that he thought quite a bit about yesterday's and realizes that he has misconceptions daily and with all different people, misinterpreting their behaviors as negative towards himself when really they are not. Patient shared that he has constant negative self-deprecating thoughts that he struggles with. Patient very much wanted to continue with medication management and wanted to add a medication to help with depression anxiety; given that he is having trouble sleeping, auto service writer reviewed risks/side effects and patient agreed to start mirtazapine. Did not want to continue with Seroquel since it caused weight gain. Reviewed risks/side effects of regimen including antipsychotics and patient agrees to remain on Vraylar 09/24 Patient said he slept a little better with mirtazapine but wonders if it could be increased. Patient discussed that he has chronic insomnia and understands he will be difficult to treat; also wonders if insomnia has been worse since he quit smoking cannabis which was chronic. Says trazodone has helped in the past and only causes bad dreams for little while. Says last night no nightmares. Denies any SI and reports has had no attempt for years. 10/05 Quality Control Representative reviewed labs and ammonia elevated; discussed with patient who agrees to lower Depakote back to a 1000 mg and instead increase Vraylar. Patient remains quite anxious and continues to struggle with insomnia. Reviewed options and patient decided that even though Seroquel causes weight gain, it is something that has always helped him sleep and he agrees to have it restarted with p.r.n. available. 10/06: Continue current regimen and plans try to stabilize sleep and if tonight he sleeps poorly I may switch him to low-dose Thorazine. 10/07: Continue current regimen and plans for stabilization and medication management. Discontinued Seroquel, decreased trazodone to 200 mg and added chlorpromazine 50 mg. Put him back on lactulose Plan: Lower back to depakote er 1000 mg; patient developed hyperammonemia Lactulose 20 mg 1 time dose Increase Vraylar to 3 mg since Depakote lowered Restart Seroquel 100 mg q.h.s. with p.r.n. available for continued insomnia Continue mirtazapine 15 mg q.h.s. for help with depression/anxiety and also insomnia Reason for continued inpatient stay Substantial Risk for: med/psych decompensation Time Spent With Patient Time: Total time managing care of this patient today ____ minutes.
[2024-10-07] MEDS: Lactulose 20 GM/30 ML SOLUTION 30 GM PO (09:37)
[2024-10-07] MEDS: Nicotine 21 MG PATCH.TD24 TRANSDERMA (13:29)
[2024-10-07 15:39] VITALS: BP 130/72
[2024-10-07 20:00] VITALS: BP 134/73; PULSE 62; TEMP 36.3; O2SAT 97
[2024-10-07] MEDS: traZODone HCL 100 MG TABLET 200 MG PO (20:12)
[2024-10-07] MEDS: Divalproex Sodium ER 500 MG TAB.ER.24H 1000 MG PO (20:12)
[2024-10-07 20:13] VITALS: BP 134/73
[2024-10-07] MEDS: Simethicone 80 MG TAB.CHEW PO (20:13)
[2024-10-07] MEDS: Mirtazapine 15 MG TABLET PO (20:13)
[2024-10-07] MEDS: chlorproMAZINE HCl 25 MG TABLET 50 MG PO (20:13)
[2024-10-07 22:12] VITALS: BP 136/86
[2024-10-08 02:28] VITALS: BP 130/84
[2024-10-08] MEDS: cloNIDine HCL 0.1 MG TABLET PO ×6 (02:28→22:14)
[2024-10-08] MEDS: Sodium Chloride 0.65 % Nasal 44 ML SPRBTL 1 SPRAY NOSTRIL-B ×2 (02:30→13:40)
[2024-10-08] MEDS: hydrOXYzine HCL 50 MG TABLET PO ×2 (07:21→22:14)
[2024-10-08 07:59] VITALS: BP 142/102; PULSE 75; RESP 20; TEMP 36.4; O2SAT 98
[2024-10-08] MEDS: busPIRone HCl 5 MG TABLET 15 MG PO (08:40)
[2024-10-08] MEDS: Gabapentin 300 MG CAPSULE 600 MG PO ×3 (08:40→20:37)
[2024-10-08] MEDS: Cholecalciferol (Vitamin D3) 25 MCG TABLET 50 MCG PO (08:41)
[2024-10-08] MEDS: Cariprazine HCl 3 MG CAPSULE PO (08:41)
[2024-10-08] MEDS: Lactulose 20 GM/30 ML SOLUTION 30 GM PO (08:42)
[2024-10-08] MEDS: Lidocaine 4 % Patch ADH..PATCH 2 PATCH TRANSDERMA (08:45)
[2024-10-08 10:49] VITALS: BP 128/73; PULSE 85
[2024-10-08 12:00] VITALS: BP 134/90
[2024-10-08] MEDS: OLANZapine 5 MG TABLET PO ×2 (12:17→16:42)
[2024-10-08 14:28] VITALS: BP 126/71
[2024-10-08] MEDS: busPIRone HCl 10 MG TABLET PO ×2 (14:28→20:36)
[2024-10-08] MEDS: Milk of Magnesia 30 ML ORAL.SUSP PO (16:42)
--- NOTE | 2024-10-08 16:53 | HO.PSYCHPN ---
Subjective Subjective Date of Service: 10/08/24 Reason For Visit: depression Interim History: Met with patient; discussed with team Patient reports overall doing better though he still struggles with depression and significant anxiety. Discussed medication management at length. He said Paxil has helped in the past for anxiety; does not think BuSpar is helping much in wonders about getting off of it... Hoping that he will tolerate Depakote since he feels that was very helpful and is concerned about continued elevated ammonia level. He agrees to continue monitoring and also that lactulose does help with chronic constipation. Patient does not want to take Seroquel due to it causing weight gain and overall not being that effective; Thorazine minimally effective for sleep; mirtazapine not helpful for sleep. Agrees to switch to Zyprexa at bedtime for insomnia and as a help for mood stabilization; also to be used as a p.r.n.. Agrees to taper/DC Seroquel, Thorazine, BuSpar, mirtazapine which have not been that helpful. Mental Status Exam Mental Status Exam Narrative: Pt is alert and oriented; behavior is cooperative, friendly, calm, often isolative; patient is not in distress; dressed in casual attire adequate hygiene; mood is described as ok...better...anxious...still depressed affect congruent though overall calmer, brighter; eye contact appropriate; Speech is normal rate, volume and prosody and not pressured; no psychomotor agitation present; thought process is goal directed,?logical,?though?concrete; Thought content is on tx, hx of trauma and its effects; otherwise pertinent to relevant topics and without any delusional content, paranoid ideations or grandiosity; no SI;?no?HI. There is no evidence of perceptual disturbance. Patients insight and judgment?fair Diagnostics Vital Signs (24Hr): Vital Signs - 24 hr 10/07/24 20:00 10/07/24 20:13 10/07/24 22:12 Temperature 97.3 F Pulse Rate 62 Respiratory Rate Blood Pressure 134/73 134/73 136/86 Pulse Oximetry 97 Oxygen Delivery Method Room Air 10/08/24 02:28 10/08/24 07:59 10/08/24 10:49 Temperature 97.5 F Pulse Rate 75 85 Respiratory Rate 20 Blood Pressure 130/84 142/102 H 128/73 Pulse Oximetry 98 Oxygen Delivery Method Room Air 10/08/24 12:00 10/08/24 14:28 Temperature Pulse Rate Respiratory Rate Blood Pressure 134/90 H 126/71 Pulse Oximetry Oxygen Delivery Method BMI result Body Mass Index 30.3 Labs 09/25/24 13:13 09/25/24 13:13 Labs: Laboratory Results - last 48 hr 10/07/24 07:58 Ammonia 64 H Medications Medications Current Medications Acetaminophen (Acetaminophen 325 Mg Tablet) 650 mg PO Q6H PRN PRN Reason: Headache/Pain Mild Scale (1-3) Last Admin: 10/06/24 12:49 Dose: 650 mg Al Hydroxide/Mg Hydroxide (Magnesium Hydrox/Alum Hydrox 30 Ml Oral.Susp) 30 ml PO Q6H PRN PRN Reason: Heartburn/Nausea Last Admin: 10/04/24 13:18 Dose: 30 ml Buspirone HCl (Buspirone Hcl 10 Mg Tablet) 10 mg PO TID [facility] Last Admin: 10/08/24 14:28 Dose: 10 mg Cariprazine (Cariprazine Hcl 3 Mg Capsule) 3 mg PO DAILY [facility] Last Admin: 10/08/24 08:41 Dose: 3 mg Chlorpromazine HCl (Chlorpromazine Hcl 25 Mg Tablet) 50 mg PO BEDTIME PRN PRN Reason: insomnia Clonidine HCl (Clonidine Hcl 0.1 Mg Tablet) 0.1 mg PO TID [facility]; Protocol Last Admin: 10/08/24 14:28 Dose: 0.1 mg Clonidine HCl (Clonidine Hcl 0.1 Mg Tablet) 0.1 mg PO Q4H PRN; Protocol PRN Reason: anxiety Last Admin: 10/08/24 12:00 Dose: 0.1 mg Divalproex Sodium (Divalproex Sodium Er 500 Mg Tab.Er.24h) 1,000 mg PO BEDTIME [facility] Last Admin: 10/07/24 20:12 Dose: 1,000 mg Gabapentin (Gabapentin 300 Mg Capsule) 600 mg PO TID [facility] Last Admin: 10/08/24 14:29 Dose: 600 mg Hydroxyzine HCl (Hydroxyzine Hcl 50 Mg Tablet) 50 mg PO Q6H PRN PRN Reason: Anxiety Last Admin: 10/08/24 07:21 Dose: 50 mg Lactulose (Lactulose 20 Gm/30 Ml Solution) 30 gm PO DAILY [facility] Last Admin: 10/08/24 08:42 Dose: 30 gm Lidocaine (Lidocaine 4 % Patch Adh..Patch) 2 patch TRANSDERMA DAILY [facility]; Protocol Last Admin: 10/08/24 08:45 Dose: 2 patch Loperamide HCl (Loperamide Hcl 2 Mg Capsule) 2 mg PO Q6H PRN PRN Reason: Loose Stool Last Admin: 10/04/24 21:52 Dose: 2 mg Magnesium Hydroxide (Milk Of Magnesia 30 Ml Oral.Susp) 30 ml PO DAILY PRN PRN Reason: Constipation Last Admin: 10/08/24 16:42 Dose: 30 ml Naproxen (Naproxen 500 Mg Tablet) 500 mg PO BID PRN PRN Reason: shoulder pain Last Admin: 10/06/24 06:42 Dose: 500 mg Nicotine (Nicotine 21 Mg Patch.Td24) 21 mg TRANSDERMA DAILY PRN PRN Reason: smoking cessation Last Admin: 10/07/24 13:29 Dose: 21 mg Nicotine Polacrilex (Nicotine Polacrilex 2 Mg Gum) 4 mg BUCCAL Q2H PRN PRN Reason: Nicotine Cravings Olanzapine (Olanzapine 10 Mg Tablet) 10 mg PO BEDTIME [facility] Olanzapine (Olanzapine 5 Mg Tablet) 5 mg PO TID PRN PRN Reason: agitation Last Admin: 10/08/24 16:42 Dose: 5 mg Simethicone (Simethicone 80 Mg Tab.Chew) 80 mg PO BEDTIME [facility] Last Admin: 10/07/24 20:13 Dose: 80 mg Sodium Chloride (Sodium Chloride 0.65 % Nasal 44 Ml Sprbtl) 1 spray NOSTRIL-B Q1H PRN PRN Reason: dry nares Last Admin: 10/08/24 13:40 Dose: 1 spray Trazodone HCl (Trazodone Hcl 100 Mg Tablet) 200 mg PO BEDTIME [facility] Last Admin: 10/07/24 20:12 Dose: 200 mg Vitamin D (Cholecalciferol (Vitamin D3) 25 Mcg Tablet) 50 mcg PO DAILY [facility] Last Admin: 10/08/24 08:41 Dose: 50 mcg Allergies Allergies Allergy/AdvReac Type Severity Reaction Status Date / Time duloxetine [From CYMBALTA] Allergy Unknown RASH Verified 09/25/24 12:39 shrimp Allergy Anaphylaxis Verified 09/25/24 12:39 Assessment & Plan Assessment & Plan (1) Bipolar disorder, now depressed: Qualifiers: Current episode severity: unspecified Qualified Code(s): F31.30 - Bipolar disorder, current episode depressed, mild or moderate severity, unspecified Status: Acute Code(s): F31.30 - Bipolar disorder, current episode depressed, mild or moderate severity, unspecified (2) Cocaine use disorder: Status: Acute Code(s): F14.10 - Cocaine abuse, uncomplicated (3) Alcohol use disorder: Status: Acute Code(s): F10.90 - Alcohol use, unspecified, uncomplicated Plan 09/27 lowered clonidine 0.1mg po BID, scheduled propanolol 5mg po TID. d/c trazodone 150mg po qhs, start seroquel 100mg po qhs.continue depakote. 09/28 increase gabapentin to 600mg po TID. seroquel 100mg po TID. propanolol 20mg po TID, wants trazodone back 200mg po qhs. will check depakote and ammonia close to nighttime dose. consider naltrexon, may help with cravings 09/29: Depakote level tomorrow. Consider increase based on results. Increase Trazodone 300 mg HS. Start Vit D. 08/31: Increase Depakote to 1,250 mg HS. Start Aleve. Start Prazossin 2 mg HS. 10/01pt says he's feeling a little better; still depressed but less so and more hopeful. Pt feels medications are helping; depakote recently increased; discussed trying clonidine instead of propranol. He also wants off Seorquel and agrees to make it a prn -ordered labs 10/02 self-reflecting; realizing hx of trauma affecting relationships; agrees to increase depakote, start [id number] Patient shared that he thought quite a bit about yesterday's and realizes that he has misconceptions daily and with all different people, misinterpreting their behaviors as negative towards himself when really they are not. Patient shared that he has constant negative self-deprecating thoughts that he struggles with. Patient very much wanted to continue with medication management and wanted to add a medication to help with depression anxiety; given that he is having trouble sleeping, caption writer reviewed risks/side effects and patient agreed to start mirtazapine. Did not want to continue with Seroquel since it caused weight gain. Reviewed risks/side effects of regimen including antipsychotics and patient agrees to remain on Vraylar 09/24 Patient said he slept a little better with mirtazapine but wonders if it could be increased. Patient discussed that he has chronic insomnia and understands he will be difficult to treat; also wonders if insomnia has been worse since he quit smoking cannabis which was chronic. Says trazodone has helped in the past and only causes bad dreams for little while. Says last night no nightmares. Denies any SI and reports has had no attempt for years. 10/05 Structural Steel Fitter reviewed labs and ammonia elevated; discussed with patient who agrees to lower Depakote back to a 1000 mg and instead increase Vraylar. Patient remains quite anxious and continues to struggle with insomnia. Reviewed options and patient decided that even though Seroquel causes weight gain, it is something that has always helped him sleep and he agrees to have it restarted with p.r.n. available. 10/06: Continue current regimen and plans try to stabilize sleep and if tonight he sleeps poorly I may switch him to low-dose Thorazine. 10/07: Continue current regimen and plans for stabilization and medication management. Discontinued Seroquel, decreased trazodone to 200 mg and added chlorpromazine 50 mg. Put him back on lactulose 10/08 Patient reports overall doing better though he still struggles with depression and significant anxiety. Discussed medication management at length. He said Paxil has helped in the past for anxiety; does not think BuSpar is helping much in wonders about getting off of it... Hoping that he will tolerate Depakote since he feels that was very helpful and is concerned about continued elevated ammonia level. He agrees to continue monitoring and also that lactulose does help with chronic constipation. Patient does not want to take Seroquel due to it causing weight gain and overall not being that effective; Thorazine minimally effective for sleep; mirtazapine not helpful for sleep. Agrees to switch to Zyprexa at bedtime for insomnia and as a help for mood stabilization; also to be used as a p.r.n.. Agrees to taper/DC Seroquel, Thorazine, BuSpar, mirtazapine which have not been that helpful. -long history of alcoholism making benzodiazepines a challenging choice to help with anxiety -continue to monitor ammonia level -Hx of hep c need continued admission Plan: Lower back to depakote er 1000 mg; patient developed hyperammonemia; will continue to monitor -consider lactulose scheduled Increased Vraylar to 3 mg since Depakote lowered Start Zyprexa 10 mg q.h.s. Add Zyprexa PRN for anxiety since patient is exceedingly anxious taper/DC: Seroquel, Thorazine, BuSpar, mirtazapine which have not been that helpful. Patient educated on: diagnosis, medication risk/benefits, therapeutic strategies and medical condition Informed Consent: understands Reason for continued inpatient stay Substantial Risk for: stable for discharge and rapid decompensation Time Spent With Patient Time: Total time managing care of this patient today ____ minutes.
[2024-10-08 20:00] VITALS: BP 134/75; PULSE 70; RESP 16; TEMP 36.2; O2SAT 99
[2024-10-08] MEDS: Simethicone 80 MG TAB.CHEW PO (20:36)
[2024-10-08] MEDS: Divalproex Sodium ER 500 MG TAB.ER.24H 1000 MG PO (20:37)
[2024-10-08] MEDS: OLANZapine 10 MG TABLET PO (20:37)
[2024-10-08] MEDS: traZODone HCL 100 MG TABLET 200 MG PO (20:37)
[2024-10-08] MEDS: chlorproMAZINE HCl 25 MG TABLET 50 MG PO (20:38)
[2024-10-09] VITALS (7 sets, daily range): BP systolic 134–174; BP diastolic 68–93; PULSE 60–91; RESP 20; TEMP 36.4–37.5; O2SAT 97–99
[2024-10-09] MEDS: Sodium Chloride 0.65 % Nasal 44 ML SPRBTL 1 SPRAY NOSTRIL-B ×3 (04:43→22:50)
[2024-10-09] MEDS: hydrOXYzine HCL 50 MG TABLET PO ×2 (04:45→12:58)
[2024-10-09] MEDS: OLANZapine 5 MG TABLET PO ×3 (07:46→22:36)
[2024-10-09] MEDS: cloNIDine HCL 0.1 MG TABLET PO ×4 (07:46→22:35)
[2024-10-09] MEDS: Nicotine 21 MG PATCH.TD24 TRANSDERMA (07:48)
[2024-10-09] MEDS: Gabapentin 300 MG CAPSULE 600 MG PO ×3 (08:35→20:41)
[2024-10-09] MEDS: busPIRone HCl 10 MG TABLET PO ×2 (08:35→15:44)
[2024-10-09] MEDS: Cholecalciferol (Vitamin D3) 25 MCG TABLET 50 MCG PO (08:36)
[2024-10-09] MEDS: Cariprazine HCl 3 MG CAPSULE PO (08:36)
[2024-10-09] MEDS: Lactulose 20 GM/30 ML SOLUTION 30 GM PO (08:38)
[2024-10-09 09:18] LABS: Ammonia 40 umol/L (13-55)
--- NOTE | 2024-10-09 09:28 | HO.PSYCHPN ---
Subjective Subjective Date of Service: 10/09/24 Reason For Visit: depression Interim History: Met with patient; discussed with team Patient continues to vacillate between feeling better and still feeling anxious and depressed. He slept better with Zyprexa at bedtime but still reports it was not enough and that anxiety is bothersome. Again reviewed medications and patient agrees to increase Zyprexa dose at bedtime. Also discussed ammonia returning to normal although patient has remained on lactulose; he says it is helping with constipation and will continue. Other options also discussed but agrees to Zyprexa increase for now Mental Status Exam Mental Status Exam Narrative: Pt is alert and oriented; behavior is cooperative, friendly, calm, often isolative; patient is not in distress; dressed in casual attire adequate hygiene; mood is described as ok...[better]...anxious...still depressed affect congruent though overall calmer, brighter; eye contact appropriate; Speech is normal rate, volume and prosody and not pressured; no psychomotor agitation present; thought process is goal directed,?logical,?though?concrete; Thought content is on tx, hx of trauma and its effects; otherwise pertinent to relevant topics and without any delusional content, paranoid ideations or grandiosity; no SI;?no?HI. There is no evidence of perceptual disturbance. Patients insight and judgment?fair Diagnostics Vital Signs (24Hr): Vital Signs - 24 hr 10/08/24 10:49 10/08/24 12:00 10/08/24 14:28 Temperature Pulse Rate 85 Respiratory Rate Blood Pressure 128/73 134/90 H 126/71 Pulse Oximetry Oxygen Delivery Method 10/08/24 20:00 10/09/24 07:46 10/09/24 08:00 Temperature 97.2 F 97.6 F Pulse Rate 70 60 Respiratory Rate 16 20 Blood Pressure 134/75 174/93 H 174/93 H Pulse Oximetry 99 99 Oxygen Delivery Method Room Air Room Air BMI result Body Mass Index 30.3 Labs 09/25/24 13:13 09/25/24 13:13 Labs: Laboratory Results - last 48 hr 10/09/24 08:38 Ammonia 40 Medications Medications Current Medications Acetaminophen (Acetaminophen 325 Mg Tablet) 650 mg PO Q6H PRN PRN Reason: Headache/Pain Mild Scale (1-3) Last Admin: 10/06/24 12:49 Dose: 650 mg Al Hydroxide/Mg Hydroxide (Magnesium Hydrox/Alum Hydrox 30 Ml Oral.Susp) 30 ml PO Q6H PRN PRN Reason: Heartburn/Nausea Last Admin: 10/04/24 13:18 Dose: 30 ml Buspirone HCl (Buspirone Hcl 10 Mg Tablet) 10 mg PO TID [facility] Last Admin: 10/09/24 08:35 Dose: 10 mg Cariprazine (Cariprazine Hcl 3 Mg Capsule) 3 mg PO DAILY [facility] Last Admin: 10/09/24 08:36 Dose: 3 mg Chlorpromazine HCl (Chlorpromazine Hcl 25 Mg Tablet) 50 mg PO BEDTIME PRN PRN Reason: insomnia Last Admin: 10/08/24 20:38 Dose: 50 mg Clonidine HCl (Clonidine Hcl 0.1 Mg Tablet) 0.1 mg PO TID [facility]; Protocol Last Admin: 10/08/24 20:37 Dose: 0.1 mg Clonidine HCl (Clonidine Hcl 0.1 Mg Tablet) 0.1 mg PO Q4H PRN; Protocol PRN Reason: anxiety Last Admin: 10/09/24 07:46 Dose: 0.1 mg Divalproex Sodium (Divalproex Sodium Er 500 Mg Tab.Er.24h) 1,000 mg PO BEDTIME [facility] Last Admin: 10/08/24 20:37 Dose: 1,000 mg Gabapentin (Gabapentin 300 Mg Capsule) 600 mg PO TID [facility] Last Admin: 10/09/24 08:35 Dose: 600 mg Hydroxyzine HCl (Hydroxyzine Hcl 50 Mg Tablet) 50 mg PO Q6H PRN PRN Reason: Anxiety Last Admin: 10/09/24 04:45 Dose: 50 mg Lactulose (Lactulose 20 Gm/30 Ml Solution) 30 gm PO DAILY [facility] Last Admin: 10/09/24 08:38 Dose: 30 gm Lidocaine (Lidocaine 4 % Patch Adh..Patch) 2 patch TRANSDERMA DAILY [facility]; Protocol Last Admin: 10/09/24 08:37 Dose: 2 patch Loperamide HCl (Loperamide Hcl 2 Mg Capsule) 2 mg PO Q6H PRN PRN Reason: Loose Stool Last Admin: 10/04/24 21:52 Dose: 2 mg Magnesium Hydroxide (Milk Of Magnesia 30 Ml Oral.Susp) 30 ml PO DAILY PRN PRN Reason: Constipation Last Admin: 10/08/24 16:42 Dose: 30 ml Naproxen (Naproxen 500 Mg Tablet) 500 mg PO BID PRN PRN Reason: shoulder pain Last Admin: 10/06/24 06:42 Dose: 500 mg Nicotine (Nicotine 21 Mg Patch.Td24) 21 mg TRANSDERMA DAILY PRN PRN Reason: smoking cessation Last Admin: 10/09/24 07:48 Dose: 21 mg Nicotine Polacrilex (Nicotine Polacrilex 2 Mg Gum) 4 mg BUCCAL Q2H PRN PRN Reason: Nicotine Cravings Olanzapine (Olanzapine 10 Mg Tablet) 10 mg PO BEDTIME [facility] Last Admin: 10/08/24 20:37 Dose: 10 mg Olanzapine (Olanzapine 5 Mg Tablet) 5 mg PO TID PRN PRN Reason: agitation Last Admin: 10/09/24 07:46 Dose: 5 mg Simethicone (Simethicone 80 Mg Tab.Chew) 80 mg PO BEDTIME [facility] Last Admin: 10/08/24 20:36 Dose: 80 mg Sodium Chloride (Sodium Chloride 0.65 % Nasal 44 Ml Sprbtl) 1 spray NOSTRIL-B Q1H PRN PRN Reason: dry nares Last Admin: 10/09/24 04:43 Dose: 1 spray Trazodone HCl (Trazodone Hcl 100 Mg Tablet) 200 mg PO BEDTIME [facility] Last Admin: 10/08/24 20:37 Dose: 200 mg Vitamin D (Cholecalciferol (Vitamin D3) 25 Mcg Tablet) 50 mcg PO DAILY [facility] Last Admin: 10/09/24 08:36 Dose: 50 mcg Allergies Allergies Allergy/AdvReac Type Severity Reaction Status Date / Time duloxetine [From CYMBALTA] Allergy Unknown RASH Verified 09/25/24 12:39 shrimp Allergy Anaphylaxis Verified 09/25/24 12:39 Assessment & Plan Assessment & Plan (1) Bipolar disorder, now depressed: Qualifiers: Current episode severity: unspecified Qualified Code(s): F31.30 - Bipolar disorder, current episode depressed, mild or moderate severity, unspecified Status: Acute Code(s): F31.30 - Bipolar disorder, current episode depressed, mild or moderate severity, unspecified (2) Cocaine use disorder: Status: Acute Code(s): F14.10 - Cocaine abuse, uncomplicated (3) Alcohol use disorder: Status: Acute Code(s): F10.90 - Alcohol use, unspecified, uncomplicated Plan 09/27 lowered clonidine 0.1mg po BID, scheduled propanolol 5mg po TID. d/c trazodone 150mg po qhs, start seroquel 100mg po qhs.continue depakote. 09/28 increase gabapentin to 600mg po TID. seroquel 100mg po TID. propanolol 20mg po TID, wants trazodone back 200mg po qhs. will check depakote and ammonia close to nighttime dose. consider naltrexon, may help with cravings 09/29: Depakote level tomorrow. Consider increase based on results. Increase Trazodone 300 mg HS. Start Vit D. 08/31: Increase Depakote to 1,250 mg HS. Start Aleve. Start Prazossin 2 mg HS. 10/01pt says he's feeling a little better; still depressed but less so and more hopeful. Pt feels medications are helping; depakote recently increased; discussed trying clonidine instead of propranol. He also wants off Seorquel and agrees to make it a prn -ordered labs 10/02 self-reflecting; realizing hx of trauma affecting relationships; agrees to increase depakote, start [id number] Patient shared that he thought quite a bit about yesterday's and realizes that he has misconceptions daily and with all different people, misinterpreting their behaviors as negative towards himself when really they are not. Patient shared that he has constant negative self-deprecating thoughts that he struggles with. Patient very much wanted to continue with medication management and wanted to add a medication to help with depression anxiety; given that he is having trouble sleeping, contract writer reviewed risks/side effects and patient agreed to start mirtazapine. Did not want to continue with Seroquel since it caused weight gain. Reviewed risks/side effects of regimen including antipsychotics and patient agrees to remain on Vraylar 09/24 Patient said he slept a little better with mirtazapine but wonders if it could be increased. Patient discussed that he has chronic insomnia and understands he will be difficult to treat; also wonders if insomnia has been worse since he quit smoking cannabis which was chronic. Says trazodone has helped in the past and only causes bad dreams for little while. Says last night no nightmares. Denies any SI and reports has had no attempt for years. 10/05 Renal Case Manager reviewed labs and ammonia elevated; discussed with patient who agrees to lower Depakote back to a 1000 mg and instead increase Vraylar. Patient remains quite anxious and continues to struggle with insomnia. Reviewed options and patient decided that even though Seroquel causes weight gain, it is something that has always helped him sleep and he agrees to have it restarted with p.r.n. available. 10/06: Continue current regimen and plans try to stabilize sleep and if tonight he sleeps poorly I may switch him to low-dose Thorazine. 10/07: Continue current regimen and plans for stabilization and medication management. Discontinued Seroquel, decreased trazodone to 200 mg and added chlorpromazine 50 mg. Put him back on lactulose 10/08 Patient reports overall doing better though he still struggles with depression and significant anxiety. Discussed medication management at length. He said Paxil has helped in the past for anxiety; does not think BuSpar is helping much in wonders about getting off of it... Hoping that he will tolerate Depakote since he feels that was very helpful and is concerned about continued elevated ammonia level. He agrees to continue monitoring and also that lactulose does help with chronic constipation. Patient does not want to take Seroquel due to it causing weight gain and overall not being that effective; Thorazine minimally effective for sleep; mirtazapine not helpful for sleep. Agrees to switch to Zyprexa at bedtime for insomnia and as a help for mood stabilization; also to be used as a p.r.n.. Agrees to taper/DC Seroquel, Thorazine, BuSpar, mirtazapine which have not been that helpful. -long history of alcoholism making benzodiazepines a challenging choice to help with anxiety -continue to monitor ammonia level -Hx of hep c 10/09 Patient continues to vacillate between feeling better and still feeling anxious and depressed. He slept better with Zyprexa at bedtime but still reports it was not enough and that anxiety is bothersome. Again reviewed medications and patient agrees to increase Zyprexa dose at bedtime. Also discussed ammonia returning to normal although patient has remained on lactulose; he says it is helping with constipation and will continue. Other options also discussed but agrees to Zyprexa increase for now need continued admission to ensure that ammonia remains stable and hyperammonemia stays resolved Plan: continue depakote er 1000 mg; patient developed hyperammonemia; will continue to monitor -lactulose scheduled Increased Vraylar to 3 mg since Depakote lowered Increased to Zyprexa 20 mg q.h.s. Add Zyprexa PRN for anxiety since patient is exceedingly anxious taper/DC: Seroquel, Thorazine, BuSpar, mirtazapine which have not been that helpful. Patient educated on: diagnosis, medication risk/benefits and therapeutic strategies Informed Consent: understands Reason for continued inpatient stay Substantial Risk for: stable for discharge and rapid decompensation Time Spent With Patient Time: Total time managing care of this patient today ____ minutes.
[2024-10-09] MEDS: NaPROXEN 500 MG TABLET PO (16:10)
[2024-10-09] MEDS: Milk of Magnesia 30 ML ORAL.SUSP PO (17:31)
[2024-10-09] MEDS: traZODone HCL 100 MG TABLET 200 MG PO (20:40)
[2024-10-09] MEDS: Divalproex Sodium ER 500 MG TAB.ER.24H 1000 MG PO (20:40)
[2024-10-09] MEDS: busPIRone HCl 5 MG TABLET PO (20:40)
[2024-10-09] MEDS: Simethicone 80 MG TAB.CHEW PO (20:42)
[2024-10-09] MEDS: OLANZapine 10 MG TABLET 20 MG PO (20:42)
[2024-10-09] MEDS: Acetaminophen 325 MG TABLET 650 MG PO (20:46)
[2024-10-10] MEDS: hydrOXYzine HCL 50 MG TABLET PO ×3 (01:24→22:48)
[2024-10-10] MEDS: NaPROXEN 500 MG TABLET PO (01:25)
[2024-10-10 03:33] VITALS: BP 125/78
[2024-10-10] MEDS: cloNIDine HCL 0.1 MG TABLET PO ×4 (03:33→22:48)
[2024-10-10] MEDS: Sodium Chloride 0.65 % Nasal 44 ML SPRBTL 1 SPRAY NOSTRIL-B ×3 (03:33→22:48)
[2024-10-10] MEDS: OLANZapine 5 MG TABLET PO (06:29)
[2024-10-10] MEDS: Cholecalciferol (Vitamin D3) 25 MCG TABLET 50 MCG PO (08:34)
[2024-10-10] MEDS: busPIRone HCl 5 MG TABLET PO ×3 (08:34→21:05)
[2024-10-10] MEDS: Gabapentin 300 MG CAPSULE 600 MG PO ×3 (08:34→21:06)
[2024-10-10] MEDS: Cariprazine HCl 3 MG CAPSULE PO (08:34)
[2024-10-10] MEDS: Lidocaine 4 % Patch ADH..PATCH 2 PATCH TRANSDERMA (08:35)
[2024-10-10] MEDS: Lactulose 20 GM/30 ML SOLUTION 30 GM PO (08:36)
[2024-10-10] MEDS: Nicotine 21 MG PATCH.TD24 TRANSDERMA (08:41)
[2024-10-10 09:28] VITALS: BP 124/71; PULSE 56; RESP 18; TEMP 36.3; O2SAT 98
--- NOTE | 2024-10-10 09:45 | HO.PSYCHPN ---
Subjective Subjective Date of Service: 10/10/24 Reason For Visit: depression Interim History: Met with patient; discussed with team Yesterday patient was complaining that he felt like he was stuttering though technical writer and editor did not observe this. Today he reports he feels his tongue is swelling and it is harder to talk; experiences intermittent. Fitness Worker could not visualize tongue swelling however Patient responded well to Benadryl p.o. and then Cogentin and he reported tongue swelling decreased. Patient's Zyprexa has been increasing in last night was increased to 20 mg; will discontinue out of concern for dystonic reaction. Discussed this and patient agrees. Discussed further medication management, patient agrees to increase Vraylar and clonidine at bedtime dc zyprexa due to dystonia increase Vraylar to 4.5 increase clonidine to 0.2mg qhs for continued insomnia Mental Status Exam Mental Status Exam Narrative: Pt is alert and oriented; behavior is cooperative, anxious, often isolative; patient is not in distress; dressed in casual attire adequate hygiene; mood is described as anxious... affect congruent though overall calmer, brighter; eye contact appropriate; Speech is intermittently little garbled; but overall normal rate, volume and prosody and not pressured; no psychomotor agitation present; thought process is goal directed,?logical,?though?concrete; Thought content is on tx, hx of trauma and its effects; otherwise pertinent to relevant topics and without any delusional content, paranoid ideations or grandiosity; no SI;?no?HI. There is no evidence of perceptual disturbance. Patients insight and judgment?fair Diagnostics Vital Signs (24Hr): Vital Signs - 24 hr 10/09/24 15:47 10/09/24 20:00 10/09/24 20:41 Temperature 99.5 F Pulse Rate 91 Respiratory Rate Blood Pressure 136/73 134/68 134/68 Pulse Oximetry 97 Oxygen Delivery Method Room Air 10/09/24 22:30 10/09/24 22:35 10/10/24 03:33 Temperature 98.2 F Pulse Rate 80 Respiratory Rate Blood Pressure 140/72 H 140/72 H 125/78 Pulse Oximetry Oxygen Delivery Method 10/10/24 09:28 Temperature 97.3 F Pulse Rate 56 Respiratory Rate 18 Blood Pressure 124/71 Pulse Oximetry 98 Oxygen Delivery Method Room Air BMI result Body Mass Index 30.3 Labs 09/25/24 13:13 09/25/24 13:13 Labs: Laboratory Results - last 48 hr 10/09/24 08:38 Ammonia 40 Medications Medications Current Medications Acetaminophen (Acetaminophen 325 Mg Tablet) 650 mg PO Q6H PRN PRN Reason: Headache/Pain Mild Scale (1-3) Last Admin: 10/09/24 20:46 Dose: 650 mg Al Hydroxide/Mg Hydroxide (Magnesium Hydrox/Alum Hydrox 30 Ml Oral.Susp) 30 ml PO Q6H PRN PRN Reason: Heartburn/Nausea Last Admin: 10/04/24 13:18 Dose: 30 ml Buspirone HCl (Buspirone Hcl 5 Mg Tablet) 5 mg PO TID YOBANI Last Admin: 10/10/24 08:34 Dose: 5 mg Cariprazine (Cariprazine Hcl 3 Mg Capsule) 3 mg PO DAILY YOBANI Last Admin: 10/10/24 08:34 Dose: 3 mg Chlorpromazine HCl (Chlorpromazine Hcl 25 Mg Tablet) 50 mg PO BEDTIME PRN PRN Reason: insomnia Last Admin: 10/08/24 20:38 Dose: 50 mg Clonidine HCl (Clonidine Hcl 0.1 Mg Tablet) 0.1 mg PO TID YOBANI; Protocol Last Admin: 10/10/24 08:34 Dose: 0.1 mg Clonidine HCl (Clonidine Hcl 0.1 Mg Tablet) 0.1 mg PO Q4H PRN; Protocol PRN Reason: anxiety Last Admin: 10/10/24 03:33 Dose: 0.1 mg Divalproex Sodium (Divalproex Sodium Er 500 Mg Tab.Er.24h) 1,000 mg PO BEDTIME YOBANI Last Admin: 10/09/24 20:40 Dose: 1,000 mg Gabapentin (Gabapentin 300 Mg Capsule) 600 mg PO TID YOBANI Last Admin: 10/10/24 08:34 Dose: 600 mg Hydroxyzine HCl (Hydroxyzine Hcl 50 Mg Tablet) 50 mg PO Q6H PRN PRN Reason: Anxiety Last Admin: 10/10/24 01:24 Dose: 50 mg Lactulose (Lactulose 20 Gm/30 Ml Solution) 30 gm PO DAILY YOBANI Last Admin: 10/10/24 08:36 Dose: 30 gm Lidocaine (Lidocaine 4 % Patch Adh..Patch) 2 patch TRANSDERMA DAILY YOBANI; Protocol Last Admin: 10/10/24 08:35 Dose: 2 patch Loperamide HCl (Loperamide Hcl 2 Mg Capsule) 2 mg PO Q6H PRN PRN Reason: Loose Stool Last Admin: 10/04/24 21:52 Dose: 2 mg Magnesium Hydroxide (Milk Of Magnesia 30 Ml Oral.Susp) 30 ml PO DAILY PRN PRN Reason: Constipation Last Admin: 10/09/24 17:31 Dose: 30 ml Naproxen (Naproxen 500 Mg Tablet) 500 mg PO BID PRN PRN Reason: shoulder pain Last Admin: 10/10/24 01:25 Dose: 500 mg Nicotine (Nicotine 21 Mg Patch.Td24) 21 mg TRANSDERMA DAILY PRN PRN Reason: smoking cessation Last Admin: 10/10/24 08:41 Dose: 21 mg Nicotine Polacrilex (Nicotine Polacrilex 2 Mg Gum) 4 mg BUCCAL Q2H PRN PRN Reason: Nicotine Cravings Olanzapine (Olanzapine 5 Mg Tablet) 5 mg PO TID PRN PRN Reason: agitation Last Admin: 10/10/24 06:29 Dose: 5 mg Olanzapine (Olanzapine 10 Mg Tablet) 20 mg PO BEDTIME YOBANI Last Admin: 10/09/24 20:42 Dose: 20 mg Simethicone (Simethicone 80 Mg Tab.Chew) 80 mg PO BEDTIME YOBANI Last Admin: 10/09/24 20:42 Dose: 80 mg Sodium Chloride (Sodium Chloride 0.65 % Nasal 44 Ml Sprbtl) 1 spray NOSTRIL-B Q1H PRN PRN Reason: dry nares Last Admin: 10/10/24 03:33 Dose: 1 spray Trazodone HCl (Trazodone Hcl 100 Mg Tablet) 200 mg PO BEDTIME YOBANI Last Admin: 10/09/24 20:40 Dose: 200 mg Vitamin D (Cholecalciferol (Vitamin D3) 25 Mcg Tablet) 50 mcg PO DAILY YOBANI Last Admin: 10/10/24 08:34 Dose: 50 mcg Allergies Allergies Allergy/AdvReac Type Severity Reaction Status Date / Time duloxetine [From CYMBALTA] Allergy Unknown RASH Verified 09/25/24 12:39 shrimp Allergy Anaphylaxis Verified 09/25/24 12:39 Assessment & Plan Assessment & Plan (1) Bipolar disorder, now depressed: Qualifiers: Current episode severity: unspecified Qualified Code(s): F31.30 - Bipolar disorder, current episode depressed, mild or moderate severity, unspecified Status: Acute Code(s): F31.30 - Bipolar disorder, current episode depressed, mild or moderate severity, unspecified (2) Cocaine use disorder: Status: Acute Code(s): F14.10 - Cocaine abuse, uncomplicated (3) Alcohol use disorder: Status: Acute Code(s): F10.90 - Alcohol use, unspecified, uncomplicated Plan 09/27 lowered clonidine 0.1mg po BID, scheduled propanolol 5mg po TID. d/c trazodone 150mg po qhs, start seroquel 100mg po qhs.continue depakote. 09/28 increase gabapentin to 600mg po TID. seroquel 100mg po TID. propanolol 20mg po TID, wants trazodone back 200mg po qhs. will check depakote and ammonia close to nighttime dose. consider naltrexon, may help with cravings 09/29: Depakote level tomorrow. Consider increase based on results. Increase Trazodone 300 mg HS. Start Vit D. 08/31: Increase Depakote to 1,250 mg HS. Start Aleve. Start Prazossin 2 mg HS. 10/01pt says he's feeling a little better; still depressed but less so and more hopeful. Pt feels medications are helping; depakote recently increased; discussed trying clonidine instead of propranol. He also wants off Seorquel and agrees to make it a prn -ordered labs 10/02 self-reflecting; realizing hx of trauma affecting relationships; agrees to increase depakote, start [id number]/13 Patient shared that he thought quite a bit about yesterday's and realizes that he has misconceptions daily and with all different people, misinterpreting their behaviors as negative towards himself when really they are not. Patient shared that he has constant negative self-deprecating thoughts that he struggles with. Patient very much wanted to continue with medication management and wanted to add a medication to help with depression anxiety; given that he is having trouble sleeping, technical writer and editor reviewed risks/side effects and patient agreed to start mirtazapine. Did not want to continue with Seroquel since it caused weight gain. Reviewed risks/side effects of regimen including antipsychotics and patient agrees to remain on Vraylar 11/4 Patient said he slept a little better with mirtazapine but wonders if it could be increased. Patient discussed that he has chronic insomnia and understands he will be difficult to treat; also wonders if insomnia has been worse since he quit smoking cannabis which was chronic. Says trazodone has helped in the past and only causes bad dreams for little while. Says last night no nightmares. Denies any SI and reports has had no attempt for years. 10/05 Fitness Worker reviewed labs and ammonia elevated; discussed with patient who agrees to lower Depakote back to a 1000 mg and instead increase Vraylar. Patient remains quite anxious and continues to struggle with insomnia. Reviewed options and patient decided that even though Seroquel causes weight gain, it is something that has always helped him sleep and he agrees to have it restarted with p.r.n. available. 10/06: Continue current regimen and plans try to stabilize sleep and if tonight he sleeps poorly I may switch him to low-dose Thorazine. 10/07: Continue current regimen and plans for stabilization and medication management. Discontinued Seroquel, decreased trazodone to 200 mg and added chlorpromazine 50 mg. Put him back on lactulose 10/08 Patient reports overall doing better though he still struggles with depression and significant anxiety. Discussed medication management at length. He said Paxil has helped in the past for anxiety; does not think BuSpar is helping much in wonders about getting off of it... Hoping that he will tolerate Depakote since he feels that was very helpful and is concerned about continued elevated ammonia level. He agrees to continue monitoring and also that lactulose does help with chronic constipation. Patient does not want to take Seroquel due to it causing weight gain and overall not being that effective; Thorazine minimally effective for sleep; mirtazapine not helpful for sleep. Agrees to switch to Zyprexa at bedtime for insomnia and as a help for mood stabilization; also to be used as a p.r.n.. Agrees to taper/DC Seroquel, Thorazine, BuSpar, mirtazapine which have not been that helpful. -long history of alcoholism making benzodiazepines a challenging choice to help with anxiety -continue to monitor ammonia level -Hx of hep c 10/09 Patient continues to vacillate between feeling better and still feeling anxious and depressed. He slept better with Zyprexa at bedtime but still reports it was not enough and that anxiety is bothersome. Again reviewed medications and patient agrees to increase Zyprexa dose at bedtime. Also discussed ammonia returning to normal although patient has remained on lactulose; he says it is helping with constipation and will continue. Other options also discussed but agrees to Zyprexa increase for now need continued admission to ensure that ammonia remains stable and hyperammonemia stays resolved 10/10 Yesterday patient was complaining that he felt like he was stuttering though technical writer and editor did not observe this. Today he reports he feels his tongue is swelling and it is harder to talk; experiences intermittent. Fitness Worker could not visualize tongue swelling however Patient responded well to Benadryl p.o. and then Cogentin and he reported tongue swelling decreased. Patient's Zyprexa has been increasing in last night was increased to 20 mg; will discontinue out of concern for dystonic reaction. Discussed this and patient agrees. Discussed further medication management, patient agrees to increase Vraylar and clonidine at bedtime dc zyprexa due to dystonia increase Vraylar to 4.5 increase clonidine to 0.2mg qhs for continued insomnia Plan: continue depakote er 1000 mg; patient developed hyperammonemia; will continue to monitor -lactulose scheduled Increased Vraylar to 4.5 mg since Depakote lowered increase clonidine to 0.2mg qhs for continued insomnia DC zyprexa; concern for dystonic reaction taper/DC: Seroquel, Thorazine, BuSpar, mirtazapine which have not been that helpful. Patient educated on: diagnosis, medication risk/benefits, therapeutic strategies and medical condition Informed Consent: understands Reason for continued inpatient stay Substantial Risk for: stable for discharge and rapid decompensation Time Spent With Patient Time: Total time managing care of this patient today ____ minutes.
[2024-10-10 14:18] VITALS: BP 141/73
[2024-10-10] MEDS: diphenhydrAMINE HCL 25 MG CAPSULE 50 MG PO (14:18)
[2024-10-10] MEDS: Benztropine Mesylate 1 MG TABLET PO (16:14)
[2024-10-10] MEDS: Cariprazine HCl 1.5 MG CAPSULE PO (16:14)
[2024-10-10 19:49] VITALS: BP 137/81; PULSE 74; RESP 16; TEMP 36.5; O2SAT 99
[2024-10-10] MEDS: Simethicone 80 MG TAB.CHEW PO (21:05)
[2024-10-10] MEDS: traZODone HCL 100 MG TABLET 200 MG PO (21:05)
[2024-10-10] MEDS: Divalproex Sodium ER 500 MG TAB.ER.24H 1000 MG PO (21:05)
[2024-10-10] MEDS: cloNIDine HCL 0.2 MG TABLET PO (21:06)
[2024-10-10] MEDS: chlorproMAZINE HCl 25 MG TABLET 50 MG PO (21:06)
[2024-10-10 22:48] VITALS: BP 123/72
[2024-10-11] VITALS (7 sets, daily range): BP systolic 119–155; BP diastolic 68–96; PULSE 56–86; RESP 16; TEMP 36.4–36.7; O2SAT 97; BMI 30.4
[2024-10-11] MEDS: cloNIDine HCL 0.1 MG TABLET PO ×5 (02:57→17:28)
[2024-10-11] MEDS: Lactulose 20 GM/30 ML SOLUTION 30 GM PO (08:31)
[2024-10-11] MEDS: Cholecalciferol (Vitamin D3) 25 MCG TABLET 50 MCG PO (08:31)
[2024-10-11] MEDS: Gabapentin 300 MG CAPSULE 600 MG PO ×3 (08:31→20:26)
[2024-10-11] MEDS: busPIRone HCl 5 MG TABLET PO ×2 (08:31→20:31)
[2024-10-11] MEDS: Cariprazine HCl 1.5 MG CAPSULE 4.5 MG PO (08:31)
[2024-10-11] MEDS: Sodium Chloride 0.65 % Nasal 44 ML SPRBTL 1 SPRAY NOSTRIL-B (08:42)
[2024-10-11] MEDS: hydrOXYzine HCL 50 MG TABLET PO (13:33)
[2024-10-11] MEDS: Nicotine 21 MG PATCH.TD24 TRANSDERMA (15:21)
--- NOTE | 2024-10-11 19:13 | P.PNPSI_ITS ---
Subjective Subjective Date of Service: 10/11/24 Reason For Visit: depression Interim History: Met with patient; discussed with team Tongue swelling remains fully resolved. Patient remains very anxious reports much trouble sleeping. Folder And Notcher reviewed chart, looking it history of medication management during past admissions dating back to 2013. For over a decade, patient has been prescribed benzodiazepines to deal with his anxiety, sometimes clonazepam, Ativan or Valium. Folder And Notcher discussed this with patient who who agreed to trial given his ongoing, extensive anxiety Mental Status Exam Mental Status Exam Narrative: Pt is alert and oriented; behavior is cooperative, anxious, often isolative; patient is not in distress; dressed in casual attire adequate hygiene; mood is described as anxious... affect congruent though overall calmer, brighter; eye contact appropriate; Speech is normal rate, volume and prosody and not pressured; no psychomotor agitation present; thought process is goal directed,?logical,?though?concrete; Thought content is on tx, hx of trauma and its effects; otherwise pertinent to relevant topics and without any delusional content, paranoid ideations or grandiosity; no SI;?no?HI. There is no evidence of perceptual disturbance. Patients insight and judgment?fair Diagnostics Vital Signs (24Hr): Vital Signs - 24 hr 10/10/24 19:49 10/10/24 22:48 10/11/24 02:57 Temperature 97.7 F Pulse Rate 74 Respiratory Rate 16 Blood Pressure 137/81 123/72 133/78 Pulse Oximetry 99 Oxygen Delivery Method Room Air 10/11/24 08:03 10/11/24 11:07 10/11/24 13:33 Temperature 97.6 F Pulse Rate 56 Respiratory Rate 16 Blood Pressure 126/68 122/81 119/77 Pulse Oximetry 97 Oxygen Delivery Method Room Air 10/11/24 17:28 Temperature Pulse Rate Respiratory Rate Blood Pressure 155/96 H Pulse Oximetry Oxygen Delivery Method BMI result Body Mass Index 30.4 Labs 09/25/24 13:13 09/25/24 13:13 Medications Medications Current Medications Acetaminophen (Acetaminophen 325 Mg Tablet) 650 mg PO Q6H PRN PRN Reason: Headache/Pain Mild Scale (1-3) Last Admin: 10/09/24 20:46 Dose: 650 mg Al Hydroxide/Mg Hydroxide (Magnesium Hydrox/Alum Hydrox 30 Ml Oral.Susp) 30 ml PO Q6H PRN PRN Reason: Heartburn/Nausea Last Admin: 10/04/24 13:18 Dose: 30 ml Buspirone HCl (Buspirone Hcl 5 Mg Tablet) 5 mg PO BID YOBANI Last Admin: 10/11/24 08:31 Dose: 5 mg Cariprazine (Cariprazine Hcl 1.5 Mg Capsule) 4.5 mg PO DAILY YOBANI Last Admin: 10/11/24 08:31 Dose: 4.5 mg Chlorpromazine HCl (Chlorpromazine Hcl 25 Mg Tablet) 50 mg PO BEDTIME PRN PRN Reason: insomnia Last Admin: 10/10/24 21:06 Dose: 50 mg Clonazepam (Clonazepam 1 Mg Tablet) 1 mg PO BID YOBANI Clonidine HCl (Clonidine Hcl 0.1 Mg Tablet) 0.1 mg PO Q4H PRN; Protocol PRN Reason: anxiety Last Admin: 10/11/24 17:28 Dose: 0.1 mg Clonidine HCl (Clonidine Hcl 0.1 Mg Tablet) 0.1 mg PO BID@0900,1300 [facility]; Protocol Last Admin: 10/11/24 13:33 Dose: 0.1 mg Clonidine HCl (Clonidine Hcl 0.2 Mg Tablet) 0.2 mg PO BEDTIME YOBANI; Protocol Last Admin: 10/10/24 21:06 Dose: 0.2 mg Divalproex Sodium (Divalproex Sodium Er 500 Mg Tab.Er.24h) 1,000 mg PO BEDTIME YOBANI Last Admin: 10/10/24 21:05 Dose: 1,000 mg Gabapentin (Gabapentin 300 Mg Capsule) 600 mg PO TID YOBANI Last Admin: 10/11/24 15:20 Dose: 600 mg Hydroxyzine HCl (Hydroxyzine Hcl 50 Mg Tablet) 50 mg PO Q6H PRN PRN Reason: Anxiety Last Admin: 10/11/24 13:33 Dose: 50 mg Lactulose (Lactulose 20 Gm/30 Ml Solution) 30 gm PO DAILY YOBANI Last Admin: 10/11/24 08:31 Dose: 30 gm Lidocaine (Lidocaine 4 % Patch Adh..Patch) 2 patch TRANSDERMA DAILY [facility]; Protocol Last Admin: 10/11/24 09:15 Dose: Not Given Loperamide HCl (Loperamide Hcl 2 Mg Capsule) 2 mg PO Q6H PRN PRN Reason: Loose Stool Last Admin: 10/04/24 21:52 Dose: 2 mg Magnesium Hydroxide (Milk Of Magnesia 30 Ml Oral.Susp) 30 ml PO DAILY PRN PRN Reason: Constipation Last Admin: 10/09/24 17:31 Dose: 30 ml Naproxen (Naproxen 500 Mg Tablet) 500 mg PO BID PRN PRN Reason: shoulder pain Last Admin: 10/10/24 01:25 Dose: 500 mg Nicotine (Nicotine 21 Mg Patch.Td24) 21 mg TRANSDERMA DAILY PRN PRN Reason: smoking cessation Last Admin: 10/11/24 15:21 Dose: 21 mg Nicotine Polacrilex (Nicotine Polacrilex 2 Mg Gum) 4 mg BUCCAL Q2H PRN PRN Reason: Nicotine Cravings Simethicone (Simethicone 80 Mg Tab.Chew) 80 mg PO BEDTIME [facility] Last Admin: 10/10/24 21:05 Dose: 80 mg Sodium Chloride (Sodium Chloride 0.65 % Nasal 44 Ml Sprbtl) 1 spray NOSTRIL-B Q1H PRN PRN Reason: dry nares Last Admin: 10/11/24 08:42 Dose: 1 spray Trazodone HCl (Trazodone Hcl 100 Mg Tablet) 200 mg PO BEDTIME [facility] Last Admin: 10/10/24 21:05 Dose: 200 mg Vitamin D (Cholecalciferol (Vitamin D3) 25 Mcg Tablet) 50 mcg PO DAILY [facility] Last Admin: 10/11/24 08:31 Dose: 50 mcg Allergies Allergies Allergy/AdvReac Type Severity Reaction Status Date / Time duloxetine [From CYMBALTA] Allergy Unknown RASH Verified 09/25/24 12:39 shrimp Allergy Anaphylaxis Verified 09/25/24 12:39 Assessment & Plan Assessment & Plan (1) Bipolar disorder, now depressed: Qualifiers: Current episode severity: unspecified Qualified Code(s): F31.30 - Bipolar disorder, current episode depressed, mild or moderate severity, unspecified Status: Acute Code(s): F31.30 - Bipolar disorder, current episode depressed, mild or moderate severity, unspecified (2) Cocaine use disorder: Status: Acute Code(s): F14.10 - Cocaine abuse, uncomplicated (3) Alcohol use disorder: Status: Acute Code(s): F10.90 - Alcohol use, unspecified, uncomplicated Plan 09/27 lowered clonidine 0.1mg po BID, scheduled propanolol 5mg po TID. d/c trazodone 150mg po qhs, start seroquel 100mg po qhs.continue depakote. 09/28 increase gabapentin to 600mg po TID. seroquel 100mg po TID. propanolol 20mg po TID, wants trazodone back 200mg po qhs. will check depakote and ammonia close to nighttime dose. consider naltrexon, may help with cravings 09/29: Depakote level tomorrow. Consider increase based on results. Increase Trazodone 300 mg HS. Start Vit D. 08/31: Increase Depakote to 1,250 mg HS. Start Aleve. Start Prazossin 2 mg HS. 10/01pt says he's feeling a little better; still depressed but less so and more hopeful. Pt feels medications are helping; depakote recently increased; discussed trying clonidine instead of propranol. He also wants off Seorquel and agrees to make it a prn -ordered labs 10/02 self-reflecting; realizing hx of trauma affecting relationships; agrees to increase depakote, start [id number] Patient shared that he thought quite a bit about yesterday's and realizes that he has misconceptions daily and with all different people, misinterpreting their behaviors as negative towards himself when really they are not. Patient shared that he has constant negative self- deprecating thoughts that he struggles with. Patient very much wanted to continue with medication management and wanted to add a medication to help with depression anxiety; given that he is having trouble sleeping, sports book writer reviewed risks/side effects and patient agreed to start mirtazapine. Did not want to continue with Seroquel since it caused weight gain. Reviewed risks/side effects of regimen including antipsychotics and patient agrees to remain on Vraylar 09/24 Patient said he slept a little better with mirtazapine but wonders if it could be increased. Patient discussed that he has chronic insomnia and understands he will be difficult to treat; also wonders if insomnia has been worse since he quit smoking cannabis which was chronic. Says trazodone has helped in the past and only causes bad dreams for little while. Says last night no nightmares. Denies any SI and reports has had no attempt for years. 11/15 Folder And Notcher reviewed labs and ammonia elevated; discussed with patient who agrees to lower Depakote back to a 1000 mg and instead increase Vraylar. Patient remains quite anxious and continues to struggle with insomnia. Reviewed options and patient decided that even though Seroquel causes weight gain, it is something that has always helped him sleep and he agrees to have it restarted with p.r.n. available. 10/06: Continue current regimen and plans try to stabilize sleep and if tonight he sleeps poorly I may switch him to low-dose Thorazine. 10/07: Continue current regimen and plans for stabilization and medication management. Discontinued Seroquel, decreased trazodone to 200 mg and added chlorpromazine 50 mg. Put him back on lactulose 10/08 Patient reports overall doing better though he still struggles with depression and significant anxiety. Discussed medication management at length. He said Paxil has helped in the past for anxiety; does not think BuSpar is helping much in wonders about getting off of it... Hoping that he will tolerate Depakote since he feels that was very helpful and is concerned about continued elevated ammonia level. He agrees to continue monitoring and also that lactulose does help with chronic constipation. Patient does not want to take Seroquel due to it causing weight gain and overall not being that effective; Thorazine minimally effective for sleep; mirtazapine not helpful for sleep. Agrees to switch to Zyprexa at bedtime for insomnia and as a help for mood stabilization; also to be used as a p.r.n.. Agrees to taper/DC Seroquel, Thorazine, BuSpar, mirtazapine which have not been that helpful. -long history of alcoholism making benzodiazepines a challenging choice to help with anxiety -continue to monitor ammonia level -Hx of hep c 10/09 Patient continues to vacillate between feeling better and still feeling anxious and depressed. He slept better with Zyprexa at bedtime but still reports it was not enough and that anxiety is bothersome. Again reviewed medications and patient agrees to increase Zyprexa dose at bedtime. Also discussed ammonia returning to normal although patient has remained on lactulose; he says it is helping with constipation and will continue. Other options also discussed but agrees to Zyprexa increase for now need continued admission to ensure that ammonia remains stable and hyperammonemia stays resolved 10/10 Yesterday patient was complaining that he felt like he was stuttering though sports book writer did not observe this. Today he reports he feels his tongue is swelling and it is harder to talk; experiences intermittent. Folder And Notcher could not visualize tongue swelling however Patient responded well to Benadryl p.o. and then Cogentin and he reported tongue swelling decreased. Patient's Zyprexa has been increasing in last night was increased to 20 mg; will discontinue out of concern for dystonic reaction. Discussed this and patient agrees. Discussed further medication management, patient agrees to increase Vraylar and clonidine at bedtime dc zyprexa due to dystonia increase Vraylar to 4.5 increase clonidine to 0.2mg qhs for continued insomnia 10/11 Tongue swelling remains fully resolved. Patient remains very anxious reports much trouble sleeping. Folder And Notcher reviewed chart, looking it history of medication management during past admissions dating back to 2013. For over a decade, patient has been prescribed benzodiazepines to deal with his anxiety, despite his chronic struggles with substance abuse. Folder And Notcher discussed this with patient who who agreed to trial given his ongoing, extensive anxiety -patient has severe anxiety that does not seem to resolve with extension medication management trials; while prescribing clonazepam has its risks, especially given patient's struggles with substance abuse, it is sports book writer's opinion that his level of anxiety requires treatment and that the potential benefit from treating with a benzodiazepine outweighs the potential risk. Patient will likely always struggles substance abuse to varying degrees. And His unrelenting anxiety will likely always be a significant trigger to relapse. Patient is miserable due to his anxiety and this misery also prompts relapse. Treating his anxiety with a benzodiazepine has the potential to significantly reduce the symptoms and help him to better function in life; conversely benzodiazepines could be abused. However given the longevity of his substance abuse history (and the longevity of being treated with benzodiazepines) it is unlikely that this clonazepam will significantly worsened his chronic substance abuse struggles. Plan: continue depakote er 1000 mg; patient developed hyperammonemia; will continue to monitor -lactulose scheduled Start clonazepam 0.5 mg b.i.d. Continue Vraylar to 4.5 mg since Depakote lowered Continue clonidine to 0.2mg qhs for continued insomnia DC zyprexa; concern for dystonic reaction taper/DC: Mega Ordonezazine, BuSpar, mirtazapine which have not been that helpful. Patient educated on: diagnosis, medication risk/benefits and substance abuse Informed Consent: understands Reason for continued inpatient stay Substantial Risk for: stable for discharge and rapid decompensation Time Spent With Patient Time: Total time managing care of this patient today ____ minutes.
[2024-10-11] MEDS: Simethicone 80 MG TAB.CHEW PO (20:29)
[2024-10-11] MEDS: Divalproex Sodium ER 500 MG TAB.ER.24H 1000 MG PO (20:29)
[2024-10-11] MEDS: cloNIDine HCL 0.2 MG TABLET PO (20:30)
[2024-10-11] MEDS: traZODone HCL 100 MG TABLET 200 MG PO (20:30)
[2024-10-11] MEDS: clonazePAM 1 MG TABLET PO (20:31)
[2024-10-11] MEDS: NaPROXEN 500 MG TABLET PO (20:38)
[2024-10-12 08:14] VITALS: BP 108/53; PULSE 56; RESP 16; TEMP 36.4; O2SAT 98
[2024-10-12] MEDS: Cholecalciferol (Vitamin D3) 25 MCG TABLET 50 MCG PO (08:22)
[2024-10-12] MEDS: cloNIDine HCL 0.1 MG TABLET PO ×3 (08:22→18:28)
[2024-10-12] MEDS: busPIRone HCl 5 MG TABLET PO ×2 (08:22→20:38)
[2024-10-12] MEDS: Cariprazine HCl 1.5 MG CAPSULE 4.5 MG PO (08:22)
[2024-10-12] MEDS: clonazePAM 1 MG TABLET PO ×2 (08:22→20:38)
[2024-10-12] MEDS: Gabapentin 300 MG CAPSULE 600 MG PO ×3 (08:22→20:37)
[2024-10-12] MEDS: Lactulose 20 GM/30 ML SOLUTION 30 GM PO (08:22)
[2024-10-12] MEDS: NaPROXEN 500 MG TABLET PO (11:25)
[2024-10-12 12:13] VITALS: BP 120/63
[2024-10-12] MEDS: Nicotine 21 MG PATCH.TD24 TRANSDERMA (12:13)
[2024-10-12] MEDS: Lidocaine 4 % Patch ADH..PATCH 2 PATCH TRANSDERMA (12:13)
[2024-10-12 12:14] VITALS: BP 120/63
[2024-10-12] MEDS: Acetaminophen 325 MG TABLET 650 MG PO ×2 (15:09→20:36)
[2024-10-12] MEDS: Milk of Magnesia 30 ML ORAL.SUSP PO (16:25)
[2024-10-12 18:28] VITALS: BP 139/80
--- NOTE | 2024-10-12 18:31 | HO.PSYCHPN ---
Subjective Subjective Date of Service: 10/12/24 Reason For Visit: depression Interim History: Met with patient; discussed with team patient reports that for the 1st time in a long time he slept through the night and is feeling much better. He said his anxiety is much lower and he is feeling really good. Patient thankful for being started on clonazepam. Mental Status Exam Mental Status Exam Narrative: Pt is alert and oriented; behavior is cooperative, calm, friendly, more social; patient is not in distress; dressed in casual attire adequate hygiene; mood is described as good affect congruent calmer, brighter; eye contact appropriate; Speech is normal rate, volume and prosody and not pressured; no psychomotor agitation present; thought process is goal directed,?logical,?though?concrete; Thought content is on tx, hx of trauma and its effects; otherwise pertinent to relevant topics and without any delusional content, paranoid ideations or grandiosity; no SI;?no?HI. There is no evidence of perceptual disturbance. Patients insight and judgment?fair Diagnostics Vital Signs (24Hr): Vital Signs - 24 hr 10/11/24 20:00 10/11/24 20:30 10/12/24 08:14 Temperature 98.1 F 97.5 F Pulse Rate 86 56 Respiratory Rate 16 Blood Pressure 126/71 126/71 108/53 L Pulse Oximetry 97 98 Oxygen Delivery Method Room Air Room Air 10/12/24 12:13 10/12/24 12:14 10/12/24 18:28 Temperature Pulse Rate Respiratory Rate Blood Pressure 120/63 120/63 139/80 Pulse Oximetry Oxygen Delivery Method BMI result Body Mass Index 30.4 Labs 09/25/24 13:13 09/25/24 13:13 Medications Medications Current Medications Acetaminophen (Acetaminophen 325 Mg Tablet) 650 mg PO Q6H PRN PRN Reason: Headache/Pain Mild Scale (1-3) Last Admin: 10/12/24 15:09 Dose: 650 mg Al Hydroxide/Mg Hydroxide (Magnesium Hydrox/Alum Hydrox 30 Ml Oral.Susp) 30 ml PO Q6H PRN PRN Reason: Heartburn/Nausea Last Admin: 10/04/24 13:18 Dose: 30 ml Buspirone HCl (Buspirone Hcl 5 Mg Tablet) 5 mg PO BID YOBANI Last Admin: 10/12/24 08:22 Dose: 5 mg Cariprazine (Cariprazine Hcl 1.5 Mg Capsule) 4.5 mg PO DAILY [facility] Last Admin: 10/12/24 08:22 Dose: 4.5 mg Chlorpromazine HCl (Chlorpromazine Hcl 25 Mg Tablet) 50 mg PO BEDTIME PRN PRN Reason: insomnia Last Admin: 10/10/24 21:06 Dose: 50 mg Clonazepam (Clonazepam 1 Mg Tablet) 1 mg PO BID YOBANI Last Admin: 10/12/24 08:22 Dose: 1 mg Clonidine HCl (Clonidine Hcl 0.1 Mg Tablet) 0.1 mg PO Q4H PRN; Protocol PRN Reason: anxiety Last Admin: 10/12/24 18:28 Dose: 0.1 mg Clonidine HCl (Clonidine Hcl 0.1 Mg Tablet) 0.1 mg PO BID@0900,1300 [facility]; Protocol Last Admin: 10/12/24 12:13 Dose: 0.1 mg Clonidine HCl (Clonidine Hcl 0.2 Mg Tablet) 0.2 mg PO BEDTIME [facility]; Protocol Last Admin: 10/11/24 20:30 Dose: 0.2 mg Divalproex Sodium (Divalproex Sodium Er 500 Mg Tab.Er.24h) 1,000 mg PO BEDTIME YOBANI Last Admin: 10/11/24 20:29 Dose: 1,000 mg Gabapentin (Gabapentin 300 Mg Capsule) 600 mg PO TID [facility] Last Admin: 10/12/24 15:08 Dose: 300 mg Hydroxyzine HCl (Hydroxyzine Hcl 50 Mg Tablet) 50 mg PO Q6H PRN PRN Reason: Anxiety Last Admin: 10/11/24 13:33 Dose: 50 mg Lactulose (Lactulose 20 Gm/30 Ml Solution) 30 gm PO DAILY [facility] Last Admin: 10/12/24 08:22 Dose: 30 gm Lidocaine (Lidocaine 4 % Patch Adh..Patch) 2 patch TRANSDERMA DAILY [facility]; Protocol Last Admin: 10/12/24 12:13 Dose: 2 patch Loperamide HCl (Loperamide Hcl 2 Mg Capsule) 2 mg PO Q6H PRN PRN Reason: Loose Stool Last Admin: 10/04/24 21:52 Dose: 2 mg Magnesium Hydroxide (Milk Of Magnesia 30 Ml Oral.Susp) 30 ml PO DAILY PRN PRN Reason: Constipation Last Admin: 10/12/24 16:25 Dose: 30 ml Naproxen (Naproxen 500 Mg Tablet) 500 mg PO BID PRN PRN Reason: shoulder pain Last Admin: 10/12/24 11:25 Dose: 500 mg Nicotine (Nicotine 21 Mg Patch.Td24) 21 mg TRANSDERMA DAILY PRN PRN Reason: smoking cessation Last Admin: 10/12/24 12:13 Dose: 21 mg Nicotine Polacrilex (Nicotine Polacrilex 2 Mg Gum) 4 mg BUCCAL Q2H PRN PRN Reason: Nicotine Cravings Simethicone (Simethicone 80 Mg Tab.Chew) 80 mg PO BEDTIME [facility] Last Admin: 10/11/24 20:29 Dose: 80 mg Sodium Chloride (Sodium Chloride 0.65 % Nasal 44 Ml Sprbtl) 1 spray NOSTRIL-B Q1H PRN PRN Reason: dry nares Last Admin: 10/11/24 08:42 Dose: 1 spray Trazodone HCl (Trazodone Hcl 100 Mg Tablet) 200 mg PO BEDTIME [facility] Last Admin: 10/11/24 20:30 Dose: 200 mg Vitamin D (Cholecalciferol (Vitamin D3) 25 Mcg Tablet) 50 mcg PO DAILY [facility] Last Admin: 10/12/24 08:22 Dose: 50 mcg Allergies Allergies Allergy/AdvReac Type Severity Reaction Status Date / Time duloxetine [From CYMBALTA] Allergy Unknown RASH Verified 09/25/24 12:39 shrimp Allergy Anaphylaxis Verified 09/25/24 12:39 Assessment & Plan Assessment & Plan (1) Bipolar disorder, now depressed: Qualifiers: Current episode severity: unspecified Qualified Code(s): F31.30 - Bipolar disorder, current episode depressed, mild or moderate severity, unspecified Status: Acute Code(s): F31.30 - Bipolar disorder, current episode depressed, mild or moderate severity, unspecified (2) Cocaine use disorder: Status: Acute Code(s): F14.10 - Cocaine abuse, uncomplicated (3) Alcohol use disorder: Status: Acute Code(s): F10.90 - Alcohol use, unspecified, uncomplicated Plan 09/27 lowered clonidine 0.1mg po BID, scheduled propanolol 5mg po TID. d/c trazodone 150mg po qhs, start seroquel 100mg po qhs.continue depakote. 09/28 increase gabapentin to 600mg po TID. seroquel 100mg po TID. propanolol 20mg po TID, wants trazodone back 200mg po qhs. will check depakote and ammonia close to nighttime dose. consider naltrexon, may help with cravings 09/29: Depakote level tomorrow. Consider increase based on results. Increase Trazodone 300 mg HS. Start Vit D. 08/31: Increase Depakote to 1,250 mg HS. Start Aleve. Start Prazossin 2 mg HS. 10/01pt says he's feeling a little better; still depressed but less so and more hopeful. Pt feels medications are helping; depakote recently increased; discussed trying clonidine instead of propranol. He also wants off Seorquel and agrees to make it a prn -ordered labs 10/02 self-reflecting; realizing hx of trauma affecting relationships; agrees to increase depakote, start [id number] Patient shared that he thought quite a bit about yesterday's and realizes that he has misconceptions daily and with all different people, misinterpreting their behaviors as negative towards himself when really they are not. Patient shared that he has constant negative self-deprecating thoughts that he struggles with. Patient very much wanted to continue with medication management and wanted to add a medication to help with depression anxiety; given that he is having trouble sleeping, public relations writer reviewed risks/side effects and patient agreed to start mirtazapine. Did not want to continue with Seroquel since it caused weight gain. Reviewed risks/side effects of regimen including antipsychotics and patient agrees to remain on Vraylar 09/24 Patient said he slept a little better with mirtazapine but wonders if it could be increased. Patient discussed that he has chronic insomnia and understands he will be difficult to treat; also wonders if insomnia has been worse since he quit smoking cannabis which was chronic. Says trazodone has helped in the past and only causes bad dreams for little while. Says last night no nightmares. Denies any SI and reports has had no attempt for years. 10/05 Human Resources Admin reviewed labs and ammonia elevated; discussed with patient who agrees to lower Depakote back to a 1000 mg and instead increase Vraylar. Patient remains quite anxious and continues to struggle with insomnia. Reviewed options and patient decided that even though Seroquel causes weight gain, it is something that has always helped him sleep and he agrees to have it restarted with p.r.n. available. 10/06: Continue current regimen and plans try to stabilize sleep and if tonight he sleeps poorly I may switch him to low-dose Thorazine. 10/07: Continue current regimen and plans for stabilization and medication management. Discontinued Seroquel, decreased trazodone to 200 mg and added chlorpromazine 50 mg. Put him back on lactulose 10/08 Patient reports overall doing better though he still struggles with depression and significant anxiety. Discussed medication management at length. He said Paxil has helped in the past for anxiety; does not think BuSpar is helping much in wonders about getting off of it... Hoping that he will tolerate Depakote since he feels that was very helpful and is concerned about continued elevated ammonia level. He agrees to continue monitoring and also that lactulose does help with chronic constipation. Patient does not want to take Seroquel due to it causing weight gain and overall not being that effective; Thorazine minimally effective for sleep; mirtazapine not helpful for sleep. Agrees to switch to Zyprexa at bedtime for insomnia and as a help for mood stabilization; also to be used as a p.r.n.. Agrees to taper/DC Seroquel, Thorazine, BuSpar, mirtazapine which have not been that helpful. -long history of alcoholism making benzodiazepines a challenging choice to help with anxiety -continue to monitor ammonia level -Hx of hep c 10/09 Patient continues to vacillate between feeling better and still feeling anxious and depressed. He slept better with Zyprexa at bedtime but still reports it was not enough and that anxiety is bothersome. Again reviewed medications and patient agrees to increase Zyprexa dose at bedtime. Also discussed ammonia returning to normal although patient has remained on lactulose; he says it is helping with constipation and will continue. Other options also discussed but agrees to Zyprexa increase for now need continued admission to ensure that ammonia remains stable and hyperammonemia stays resolved 10/10 Yesterday patient was complaining that he felt like he was stuttering though public relations writer did not observe this. Today he reports he feels his tongue is swelling and it is harder to talk; experiences intermittent. Human Resources Admin could not visualize tongue swelling however Patient responded well to Benadryl p.o. and then Cogentin and he reported tongue swelling decreased. Patient's Zyprexa has been increasing in last night was increased to 20 mg; will discontinue out of concern for dystonic reaction. Discussed this and patient agrees. Discussed further medication management, patient agrees to increase Vraylar and clonidine at bedtime dc zyprexa due to dystonia increase Vraylar to 4.5 increase clonidine to 0.2mg qhs for continued insomnia 10/11 Tongue swelling remains fully resolved. Patient remains very anxious reports much trouble sleeping. Human Resources Admin reviewed chart, looking it history of medication management during past admissions dating back to 2013. For over a decade, patient has been prescribed benzodiazepines to deal with his anxiety, despite his chronic struggles with substance abuse. Human Resources Admin discussed this with patient who who agreed to trial given his ongoing, extensive anxiety -patient has severe anxiety that does not seem to resolve with extension medication management trials; while prescribing clonazepam has its risks, especially given patient's struggles with substance abuse, it is public relations writer's opinion that his level of anxiety requires treatment and that the potential benefit from treating with a benzodiazepine outweighs the potential risk. Patient will likely always struggles substance abuse to varying degrees. And His unrelenting anxiety will likely always be a significant trigger to relapse. Patient is miserable due to his anxiety and this misery also prompts relapse. Treating his anxiety with a benzodiazepine has the potential to significantly reduce the symptoms and help him to better function in life; conversely benzodiazepines could be abused. However given the longevity of his substance abuse history (and the longevity of being treated with benzodiazepines) it is unlikely that this clonazepam will significantly worsened his chronic substance abuse struggles. 10/12 patient reports that for the 1st time in a long time he slept through the night and is feeling much better. He said his anxiety is much lower and he is feeling really good. Patient thankful for being started on clonazepam. Plan: continue depakote er 1000 mg; patient developed hyperammonemia; will continue to monitor -lactulose scheduled Start clonazepam 0.5 mg b.i.d. Continue Vraylar to 4.5 mg since Depakote lowered Continue clonidine to 0.2mg qhs for continued insomnia DC zyprexa; concern for dystonic reaction taper/DC: Seroquel, Thorazine, BuSpar, mirtazapine which have not been that helpful. Patient educated on: diagnosis, medication risk/benefits and therapeutic strategies Informed Consent: understands Reason for continued inpatient stay Substantial Risk for: stable for discharge Time Spent With Patient Time: Total time managing care of this patient today ____ minutes.
[2024-10-12 20:00] VITALS: BP 139/79; PULSE 86; RESP 15; TEMP 37.2; O2SAT 98
[2024-10-12] MEDS: Simethicone 80 MG TAB.CHEW PO (20:37)
[2024-10-12] MEDS: cloNIDine HCL 0.2 MG TABLET PO (20:37)
[2024-10-12] MEDS: Divalproex Sodium ER 500 MG TAB.ER.24H 1000 MG PO (20:37)
[2024-10-12] MEDS: traZODone HCL 100 MG TABLET 200 MG PO (20:37)
[2024-10-13 08:00] VITALS: BP 129/72; PULSE 64; RESP 16; TEMP 36.4; O2SAT 97
[2024-10-13 08:44] VITALS: BP 129/72
[2024-10-13] MEDS: Cariprazine HCl 1.5 MG CAPSULE 4.5 MG PO (08:44)
[2024-10-13] MEDS: Gabapentin 300 MG CAPSULE 600 MG PO ×3 (08:44→20:58)
[2024-10-13] MEDS: cloNIDine HCL 0.1 MG TABLET PO ×2 (08:44→12:50)
[2024-10-13] MEDS: Cholecalciferol (Vitamin D3) 25 MCG TABLET 50 MCG PO (08:44)
[2024-10-13] MEDS: busPIRone HCl 5 MG TABLET PO ×2 (08:44→20:58)
[2024-10-13] MEDS: clonazePAM 1 MG TABLET PO ×2 (08:45→20:59)
[2024-10-13] MEDS: NaPROXEN 500 MG TABLET PO (09:16)
[2024-10-13] MEDS: Lidocaine 4 % Patch ADH..PATCH 2 PATCH TRANSDERMA (12:48)
[2024-10-13 12:50] VITALS: BP 137/80
[2024-10-13] MEDS: Nicotine 21 MG PATCH.TD24 TRANSDERMA (16:07)
[2024-10-13] MEDS: hydrOXYzine HCL 50 MG TABLET PO (17:30)
[2024-10-13 20:00] VITALS: BP 143/89; PULSE 76; TEMP 36.8; O2SAT 99
[2024-10-13] MEDS: Divalproex Sodium ER 500 MG TAB.ER.24H 1000 MG PO (20:57)
[2024-10-13 20:59] VITALS: BP 143/89
[2024-10-13] MEDS: cloNIDine HCL 0.2 MG TABLET PO (20:59)
[2024-10-13] MEDS: traZODone HCL 100 MG TABLET 200 MG PO (20:59)
[2024-10-13] MEDS: Simethicone 80 MG TAB.CHEW PO (21:01)
[2024-10-13] MEDS: Magnesium Hydrox/Alum Hydrox 30 ML ORAL.SUSP PO (21:06)
[2024-10-14 08:00] VITALS: BP 124/60; PULSE 89; RESP 16; TEMP 36.4; O2SAT 98
[2024-10-14] MEDS: Cholecalciferol (Vitamin D3) 25 MCG TABLET 50 MCG PO (08:25)
[2024-10-14] MEDS: NaPROXEN 500 MG TABLET PO (08:25)
[2024-10-14] MEDS: Cariprazine HCl 1.5 MG CAPSULE 4.5 MG PO (08:25)
[2024-10-14] MEDS: Gabapentin 300 MG CAPSULE 600 MG PO (08:26)
[2024-10-14] MEDS: busPIRone HCl 5 MG TABLET PO ×2 (08:26→20:08)
[2024-10-14] MEDS: clonazePAM 1 MG TABLET PO ×2 (08:26→20:08)
--- NOTE | 2024-10-14 09:02 | HO.PSYCHPN ---
Subjective Subjective Date of Service: 10/13/24 Reason For Visit: depression Subjective Notes: Conditional Voluntary Healthcare Proxy: No Guardianship: No Medical Problems Affecting Mental Status: No Interim History: 49 yo with hx of substance abuse , depression (hx bipolar) who has been pushing for clonazepam restart for years- now back on clonazepam after episodes of dystonia with thickened tongue- he is doing ok - sleeping today due to upset on unit last pm could not sleep - Denies current si - Medication Compliance: Yes Side effects from medications: Yes (recent report of thickened tongue- inconsistent- ) Attending Groups: Intermittent Review of Systems Acute medical concerns: No Medical Review of Systems: unchanged Mental Status Exam Mental Status Exam Patient Appearance: Unkempt Patient Orientation: Person, Place, Time and Situation Level of Consciousness: Drowsy Patient Behavior: Appropriate Mood Description: Calm Affect Description: Blunted Patient Cognition Impaired: No Ability to Follow Directions: Fair Speech Pattern: Clear Hallucinations: None Delusions: Not Present Thought Process: Intact and Goal Oriented Thought Content: positive for Intact Judgement: Fair Diagnostics Vital Signs (24Hr): Vital Signs - 24 hr 10/13/24 12:50 10/13/24 20:00 10/13/24 20:59 Temperature 98.2 F Pulse Rate 76 Blood Pressure 137/80 143/89 H 143/89 H Pulse Oximetry 99 Oxygen Delivery Method Room Air BMI result Body Mass Index 30.4 Labs 09/25/24 13:13 09/25/24 13:13 Medications Medications Current Medications Acetaminophen (Acetaminophen 325 Mg Tablet) 650 mg PO Q6H PRN PRN Reason: Headache/Pain Mild Scale (1-3) Last Admin: 10/12/24 20:36 Dose: 650 mg Al Hydroxide/Mg Hydroxide (Magnesium Hydrox/Alum Hydrox 30 Ml Oral.Susp) 30 ml PO Q6H PRN PRN Reason: Heartburn/Nausea Last Admin: 10/13/24 21:06 Dose: 30 ml Buspirone HCl (Buspirone Hcl 5 Mg Tablet) 5 mg PO BID [facility] Last Admin: 10/14/24 08:26 Dose: 5 mg Cariprazine (Cariprazine Hcl 1.5 Mg Capsule) 4.5 mg PO DAILY [facility] Last Admin: 10/14/24 08:25 Dose: 4.5 mg Chlorpromazine HCl (Chlorpromazine Hcl 25 Mg Tablet) 50 mg PO BEDTIME PRN PRN Reason: insomnia Last Admin: 10/10/24 21:06 Dose: 50 mg Clonazepam (Clonazepam 1 Mg Tablet) 1 mg PO BID [facility] Last Admin: 10/14/24 08:26 Dose: 1 mg Clonidine HCl (Clonidine Hcl 0.1 Mg Tablet) 0.1 mg PO Q4H PRN; Protocol PRN Reason: anxiety Last Admin: 10/12/24 18:28 Dose: 0.1 mg Clonidine HCl (Clonidine Hcl 0.1 Mg Tablet) 0.1 mg PO BID@0900,1300 [facility]; Protocol Last Admin: 10/13/24 12:50 Dose: 0.1 mg Clonidine HCl (Clonidine Hcl 0.2 Mg Tablet) 0.2 mg PO BEDTIME [facility]; Protocol Last Admin: 10/13/24 20:59 Dose: 0.2 mg Divalproex Sodium (Divalproex Sodium Er 500 Mg Tab.Er.24h) 1,000 mg PO BEDTIME [facility] Last Admin: 10/13/24 20:57 Dose: 1,000 mg Gabapentin (Gabapentin 300 Mg Capsule) 600 mg PO TID [facility] Last Admin: 10/14/24 08:26 Dose: 600 mg Hydroxyzine HCl (Hydroxyzine Hcl 50 Mg Tablet) 50 mg PO Q6H PRN PRN Reason: Anxiety Last Admin: 10/13/24 17:30 Dose: 50 mg Lactulose (Lactulose 20 Gm/30 Ml Solution) 30 gm PO DAILY [facility] Last Admin: 10/13/24 08:47 Dose: Not Given Lidocaine (Lidocaine 4 % Patch Adh..Patch) 2 patch TRANSDERMA DAILY [facility]; Protocol Last Admin: 10/13/24 12:48 Dose: 2 patch Loperamide HCl (Loperamide Hcl 2 Mg Capsule) 2 mg PO Q6H PRN PRN Reason: Loose Stool Last Admin: 10/04/24 21:52 Dose: 2 mg Magnesium Hydroxide (Milk Of Magnesia 30 Ml Oral.Susp) 30 ml PO DAILY PRN PRN Reason: Constipation Last Admin: 10/12/24 16:25 Dose: 30 ml Naproxen (Naproxen 500 Mg Tablet) 500 mg PO BID PRN PRN Reason: shoulder pain Last Admin: 10/14/24 08:25 Dose: 500 mg Nicotine (Nicotine 21 Mg Patch.Td24) 21 mg TRANSDERMA DAILY PRN PRN Reason: smoking cessation Last Admin: 10/13/24 16:07 Dose: 21 mg Nicotine Polacrilex (Nicotine Polacrilex 2 Mg Gum) 4 mg BUCCAL Q2H PRN PRN Reason: Nicotine Cravings Simethicone (Simethicone 80 Mg Tab.Chew) 80 mg PO BEDTIME [facility] Last Admin: 10/13/24 21:01 Dose: 80 mg Sodium Chloride (Sodium Chloride 0.65 % Nasal 44 Ml Sprbtl) 1 spray NOSTRIL-B Q1H PRN PRN Reason: dry nares Last Admin: 10/11/24 08:42 Dose: 1 spray Trazodone HCl (Trazodone Hcl 100 Mg Tablet) 200 mg PO BEDTIME [facility] Last Admin: 10/13/24 20:59 Dose: 200 mg Vitamin D (Cholecalciferol (Vitamin D3) 25 Mcg Tablet) 50 mcg PO DAILY [facility] Last Admin: 10/14/24 08:25 Dose: 50 mcg Allergies Allergies Allergy/AdvReac Type Severity Reaction Status Date / Time duloxetine [From CYMBALTA] Allergy Unknown RASH Verified 09/25/24 12:39 shrimp Allergy Anaphylaxis Verified 09/25/24 12:39 Assessment & Plan Assessment & Plan (1) Bipolar disorder, now depressed: Qualifiers: Current episode severity: unspecified Qualified Code(s): F31.30 - Bipolar disorder, current episode depressed, mild or moderate severity, unspecified Status: Acute Code(s): F31.30 - Bipolar disorder, current episode depressed, mild or moderate severity, unspecified (2) Cocaine use disorder: Status: Acute Code(s): F14.10 - Cocaine abuse, uncomplicated (3) Alcohol use disorder: Status: Acute Code(s): F10.90 - Alcohol use, unspecified, uncomplicated Plan 09/27 lowered clonidine 0.1mg po BID, scheduled propanolol 5mg po TID. d/c trazodone 150mg po qhs, start seroquel 100mg po qhs.continue depakote. 09/28 increase gabapentin to 600mg po TID. seroquel 100mg po TID. propanolol 20mg po TID, wants trazodone back 200mg po qhs. will check depakote and ammonia close to nighttime dose. consider naltrexon, may help with cravings 09/29: Depakote level tomorrow. Consider increase based on results. Increase Trazodone 300 mg HS. Start Vit D. 08/31: Increase Depakote to 1,250 mg HS. Start Aleve. Start Prazossin 2 mg HS. 10/01pt says he's feeling a little better; still depressed but less so and more hopeful. Pt feels medications are helping; depakote recently increased; discussed trying clonidine instead of propranol. He also wants off Seorquel and agrees to make it a prn -ordered labs 10/02 self-reflecting; realizing hx of trauma affecting relationships; agrees to increase depakote, start [id number] Patient shared that he thought quite a bit about yesterday's and realizes that he has misconceptions daily and with all different people, misinterpreting their behaviors as negative towards himself when really they are not. Patient shared that he has constant negative self-deprecating thoughts that he struggles with. Patient very much wanted to continue with medication management and wanted to add a medication to help with depression anxiety; given that he is having trouble sleeping, specification writer reviewed risks/side effects and patient agreed to start mirtazapine. Did not want to continue with Seroquel since it caused weight gain. Reviewed risks/side effects of regimen including antipsychotics and patient agrees to remain on Vraylar 09/24 Patient said he slept a little better with mirtazapine but wonders if it could be increased. Patient discussed that he has chronic insomnia and understands he will be difficult to treat; also wonders if insomnia has been worse since he quit smoking cannabis which was chronic. Says trazodone has helped in the past and only causes bad dreams for little while. Says last night no nightmares. Denies any SI and reports has had no attempt for years. 10/05 Gastroenterology Nurse Practitioner reviewed labs and ammonia elevated; discussed with patient who agrees to lower Depakote back to a 1000 mg and instead increase Vraylar. Patient remains quite anxious and continues to struggle with insomnia. Reviewed options and patient decided that even though Seroquel causes weight gain, it is something that has always helped him sleep and he agrees to have it restarted with p.r.n. available. 10/06: Continue current regimen and plans try to stabilize sleep and if tonight he sleeps poorly I may switch him to low-dose Thorazine. 10/07: Continue current regimen and plans for stabilization and medication management. Discontinued Seroquel, decreased trazodone to 200 mg and added chlorpromazine 50 mg. Put him back on lactulose 10/08 Patient reports overall doing better though he still struggles with depression and significant anxiety. Discussed medication management at length. He said Paxil has helped in the past for anxiety; does not think BuSpar is helping much in wonders about getting off of it... Hoping that he will tolerate Depakote since he feels that was very helpful and is concerned about continued elevated ammonia level. He agrees to continue monitoring and also that lactulose does help with chronic constipation. Patient does not want to take Seroquel due to it causing weight gain and overall not being that effective; Thorazine minimally effective for sleep; mirtazapine not helpful for sleep. Agrees to switch to Zyprexa at bedtime for insomnia and as a help for mood stabilization; also to be used as a p.r.n.. Agrees to taper/DC Seroquel, Thorazine, BuSpar, mirtazapine which have not been that helpful. -long history of alcoholism making benzodiazepines a challenging choice to help with anxiety -continue to monitor ammonia level -Hx of hep c 10/09 Patient continues to vacillate between feeling better and still feeling anxious and depressed. He slept better with Zyprexa at bedtime but still reports it was not enough and that anxiety is bothersome. Again reviewed medications and patient agrees to increase Zyprexa dose at bedtime. Also discussed ammonia returning to normal although patient has remained on lactulose; he says it is helping with constipation and will continue. Other options also discussed but agrees to Zyprexa increase for now need continued admission to ensure that ammonia remains stable and hyperammonemia stays resolved 10/10 Yesterday patient was complaining that he felt like he was stuttering though specification writer did not observe this. Today he reports he feels his tongue is swelling and it is harder to talk; experiences intermittent. Gastroenterology Nurse Practitioner could not visualize tongue swelling however Patient responded well to Benadryl p.o. and then Cogentin and he reported tongue swelling decreased. Patient's Zyprexa has been increasing in last night was increased to 20 mg; will discontinue out of concern for dystonic reaction. Discussed this and patient agrees. Discussed further medication management, patient agrees to increase Vraylar and clonidine at bedtime dc zyprexa due to dystonia increase Vraylar to 4.5 increase clonidine to 0.2mg qhs for continued insomnia 10/11 Tongue swelling remains fully resolved. Patient remains very anxious reports much trouble sleeping. Gastroenterology Nurse Practitioner reviewed chart, looking it history of medication management during past admissions dating back to 2013. For over a decade, patient has been prescribed benzodiazepines to deal with his anxiety, despite his chronic struggles with substance abuse. Gastroenterology Nurse Practitioner discussed this with patient who who agreed to trial given his ongoing, extensive anxiety -patient has severe anxiety that does not seem to resolve with extension medication management trials; while prescribing clonazepam has its risks, especially given patient's struggles with substance abuse, it is specification writer's opinion that his level of anxiety requires treatment and that the potential benefit from treating with a benzodiazepine outweighs the potential risk. Patient will likely always struggles substance abuse to varying degrees. And His unrelenting anxiety will likely always be a significant trigger to relapse. Patient is miserable due to his anxiety and this misery also prompts relapse. Treating his anxiety with a benzodiazepine has the potential to significantly reduce the symptoms and help him to better function in life; conversely benzodiazepines could be abused. However given the longevity of his substance abuse history (and the longevity of being treated with benzodiazepines) it is unlikely that this clonazepam will significantly worsened his chronic substance abuse struggles. 10/12 patient reports that for the 1st time in a long time he slept through the night and is feeling much better. He said his anxiety is much lower and he is feeling really good. Patient thankful for being started on clonazepam. 10/13- patient feeling better back on clonazepam- will likely be looking for dc - whether he can manage clonazepam with hx etoh/cocaine use- is the question- he does seem more stable than he has been in years with clonazepam and structure of unit- suggest short week at a time rxs with refills on time only for clonazepam on dc Plan: continue depakote er 1000 mg; patient developed hyperammonemia; will continue to monitor -lactulose scheduled Start clonazepam 0.5 mg b.i.d. Continue Vraylar to 4.5 mg since Depakote lowered Continue clonidine to 0.2mg qhs for continued insomnia DC zyprexa; concern for dystonic reaction taper/DC: Seroquel, Thorazine, BuSpar, mirtazapine which have not been that helpful. Patient educated on: other Informed Consent: understands Reason for continued inpatient stay Substantial Risk for: rapid decompensation Time Spent With Patient Time: Total time managing care of this patient today ____ minutes.
[2024-10-14 09:14] VITALS: BP 124/60
[2024-10-14] MEDS: cloNIDine HCL 0.1 MG TABLET PO ×3 (09:14→16:37)
[2024-10-14] MEDS: Nicotine 21 MG PATCH.TD24 TRANSDERMA (12:03)
--- NOTE | 2024-10-14 12:04 | P.PNPSI_ITS ---
Subjective Subjective Date of Service: 10/14/24 Reason For Visit: depression Subjective Notes: Conditional Voluntary Healthcare Proxy: No Guardianship: No Medical Problems Affecting Mental Status: No Interim History: 49 yo HM reports he is doing much better on clonazepam, would like gabapentin lowered as it was not helpful with anxiety and he is getting tingling in his fingers- denies current si/hi/psychosis- denies current craving to use- Medication Compliance: Yes Side effects from medications: No Attending Groups: Intermittent Review of Systems Acute medical concerns: No Medical Review of Systems: changed Review of Systems: apparently tingling in fingers Mental Status Exam Mental Status Exam Patient Appearance: Well Grooomed Patient Orientation: Person, Place, Time and Situation Level of Consciousness: Awake Patient Behavior: Appropriate, Cooperative and Good Eye Contact Mood Description: Calm Affect Description: Blunted Patient Cognition Impaired: No Ability to Follow Directions: Good Speech Pattern: Clear Hallucinations: None Delusions: Not Present Thought Process: Intact and Goal Oriented Judgement: Fair Diagnostics Vital Signs (24Hr): Vital Signs - 24 hr 10/13/24 12:50 10/13/24 20:00 10/13/24 20:59 Temperature 98.2 F Pulse Rate 76 Respiratory Rate Blood Pressure 137/80 143/89 H 143/89 H Pulse Oximetry 99 Oxygen Delivery Method Room Air 10/14/24 08:00 10/14/24 09:14 Temperature 97.6 F Pulse Rate 89 Respiratory Rate 16 Blood Pressure 124/60 124/60 Pulse Oximetry 98 Oxygen Delivery Method Room Air BMI result Body Mass Index 30.4 Labs 09/25/24 13:13 09/25/24 13:13 Medications Medications Current Medications Acetaminophen (Acetaminophen 325 Mg Tablet) 650 mg PO Q6H PRN PRN Reason: Headache/Pain Mild Scale (1-3) Last Admin: 10/12/24 20:36 Dose: 650 mg Al Hydroxide/Mg Hydroxide (Magnesium Hydrox/Alum Hydrox 30 Ml Oral.Susp) 30 ml PO Q6H PRN PRN Reason: Heartburn/Nausea Last Admin: 10/13/24 21:06 Dose: 30 ml Buspirone HCl (Buspirone Hcl 5 Mg Tablet) 5 mg PO BID [facility] Last Admin: 10/14/24 08:26 Dose: 5 mg Cariprazine (Cariprazine Hcl 1.5 Mg Capsule) 4.5 mg PO DAILY [facility] Last Admin: 10/14/24 08:25 Dose: 4.5 mg Chlorpromazine HCl (Chlorpromazine Hcl 25 Mg Tablet) 50 mg PO BEDTIME PRN PRN Reason: insomnia Last Admin: 10/10/24 21:06 Dose: 50 mg Clonazepam (Clonazepam 1 Mg Tablet) 1 mg PO BID [facility] Last Admin: 10/14/24 08:26 Dose: 1 mg Clonidine HCl (Clonidine Hcl 0.1 Mg Tablet) 0.1 mg PO Q4H PRN; Protocol PRN Reason: anxiety Last Admin: 10/12/24 18:28 Dose: 0.1 mg Clonidine HCl (Clonidine Hcl 0.1 Mg Tablet) 0.1 mg PO BID@0900,1300 [facility]; Protocol Last Admin: 10/14/24 09:14 Dose: 0.1 mg Clonidine HCl (Clonidine Hcl 0.2 Mg Tablet) 0.2 mg PO BEDTIME [facility]; Protocol Last Admin: 10/13/24 20:59 Dose: 0.2 mg Divalproex Sodium (Divalproex Sodium Er 500 Mg Tab.Er.24h) 1,000 mg PO BEDTIME [facility] Last Admin: 10/13/24 20:57 Dose: 1,000 mg Gabapentin (Gabapentin 300 Mg Capsule) 600 mg PO TID [facility] Last Admin: 10/14/24 08:26 Dose: 600 mg Hydroxyzine HCl (Hydroxyzine Hcl 50 Mg Tablet) 50 mg PO Q6H PRN PRN Reason: Anxiety Last Admin: 10/13/24 17:30 Dose: 50 mg Lactulose (Lactulose 20 Gm/30 Ml Solution) 30 gm PO DAILY [facility] Last Admin: 10/14/24 09:15 Dose: Not Given Lidocaine (Lidocaine 4 % Patch Adh..Patch) 2 patch TRANSDERMA DAILY [facility]; Protocol Last Admin: 10/13/24 12:48 Dose: 2 patch Loperamide HCl (Loperamide Hcl 2 Mg Capsule) 2 mg PO Q6H PRN PRN Reason: Loose Stool Last Admin: 10/04/24 21:52 Dose: 2 mg Magnesium Hydroxide (Milk Of Magnesia 30 Ml Oral.Susp) 30 ml PO DAILY PRN PRN Reason: Constipation Last Admin: 10/12/24 16:25 Dose: 30 ml Naproxen (Naproxen 500 Mg Tablet) 500 mg PO BID PRN PRN Reason: shoulder pain Last Admin: 10/14/24 08:25 Dose: 500 mg Nicotine (Nicotine 21 Mg Patch.Td24) 21 mg TRANSDERMA DAILY PRN PRN Reason: smoking cessation Last Admin: 10/13/24 16:07 Dose: 21 mg Nicotine Polacrilex (Nicotine Polacrilex 2 Mg Gum) 4 mg BUCCAL Q2H PRN PRN Reason: Nicotine Cravings Simethicone (Simethicone 80 Mg Tab.Chew) 80 mg PO BEDTIME [facility] Last Admin: 10/13/24 21:01 Dose: 80 mg Sodium Chloride (Sodium Chloride 0.65 % Nasal 44 Ml Sprbtl) 1 spray NOSTRIL-B Q1H PRN PRN Reason: dry nares Last Admin: 10/11/24 08:42 Dose: 1 spray Trazodone HCl (Trazodone Hcl 100 Mg Tablet) 200 mg PO BEDTIME [facility] Last Admin: 10/13/24 20:59 Dose: 200 mg Vitamin D (Cholecalciferol (Vitamin D3) 25 Mcg Tablet) 50 mcg PO DAILY [facility] Last Admin: 10/14/24 08:25 Dose: 50 mcg Allergies Allergies Allergy/AdvReac Type Severity Reaction Status Date / Time duloxetine [From CYMBALTA] Allergy Unknown RASH Verified 09/25/24 12:39 shrimp Allergy Anaphylaxis Verified 09/25/24 12:39 Assessment & Plan Assessment & Plan (1) Bipolar disorder, now depressed: Qualifiers: Current episode severity: unspecified Qualified Code(s): F31.30 - Bipolar disorder, current episode depressed, mild or moderate severity, unspecified Status: Acute Code(s): F31.30 - Bipolar disorder, current episode depressed, mild or moderate severity, unspecified (2) Cocaine use disorder: Status: Acute Code(s): F14.10 - Cocaine abuse, uncomplicated (3) Alcohol use disorder: Status: Acute Code(s): F10.90 - Alcohol use, unspecified, uncomplicated Plan 09/27 lowered clonidine 0.1mg po BID, scheduled propanolol 5mg po TID. d/c trazodone 150mg po qhs, start seroquel 100mg po qhs.continue depakote. 09/28 increase gabapentin to 600mg po TID. seroquel 100mg po TID. propanolol 20mg po TID, wants trazodone back 200mg po qhs. will check depakote and ammonia close to nighttime dose. consider naltrexon, may help with cravings 09/29: Depakote level tomorrow. Consider increase based on results. Increase Trazodone 300 mg HS. Start Vit D. 08/31: Increase Depakote to 1,250 mg HS. Start Aleve. Start Prazossin 2 mg HS. 10/01pt says he's feeling a little better; still depressed but less so and more hopeful. Pt feels medications are helping; depakote recently increased; discussed trying clonidine instead of propranol. He also wants off Seorquel and agrees to make it a prn -ordered labs 10/02 self-reflecting; realizing hx of trauma affecting relationships; agrees to increase depakote, start [id number] Patient shared that he thought quite a bit about yesterday's and realizes that he has misconceptions daily and with all different people, misinterpreting their behaviors as negative towards himself when really they are not. Patient shared that he has constant negative self- deprecating thoughts that he struggles with. Patient very much wanted to continue with medication management and wanted to add a medication to help with depression anxiety; given that he is having trouble sleeping, medical writer reviewed risks/side effects and patient agreed to start mirtazapine. Did not want to continue with Seroquel since it caused weight gain. Reviewed risks/side effects of regimen including antipsychotics and patient agrees to remain on Vraylar 09/24 Patient said he slept a little better with mirtazapine but wonders if it could be increased. Patient discussed that he has chronic insomnia and understands he will be difficult to treat; also wonders if insomnia has been worse since he quit smoking cannabis which was chronic. Says trazodone has helped in the past and only causes bad dreams for little while. Says last night no nightmares. Denies any SI and reports has had no attempt for years. 10/05 Informatics Nurse reviewed labs and ammonia elevated; discussed with patient who agrees to lower Depakote back to a 1000 mg and instead increase Vraylar. Patient remains quite anxious and continues to struggle with insomnia. Reviewed options and patient decided that even though Seroquel causes weight gain, it is something that has always helped him sleep and he agrees to have it restarted with p.r.n. available. 10/06: Continue current regimen and plans try to stabilize sleep and if tonight he sleeps poorly I may switch him to low-dose Thorazine. 10/07: Continue current regimen and plans for stabilization and medication management. Discontinued Seroquel, decreased trazodone to 200 mg and added chlorpromazine 50 mg. Put him back on lactulose 10/08 Patient reports overall doing better though he still struggles with depression and significant anxiety. Discussed medication management at length. He said Paxil has helped in the past for anxiety; does not think BuSpar is helping much in wonders about getting off of it... Hoping that he will tolerate Depakote since he feels that was very helpful and is concerned about continued elevated ammonia level. He agrees to continue monitoring and also that lactulose does help with chronic constipation. Patient does not want to take Seroquel due to it causing weight gain and overall not being that effective; Thorazine minimally effective for sleep; mirtazapine not helpful for sleep. Agrees to switch to Zyprexa at bedtime for insomnia and as a help for mood stabilization; also to be used as a p.r.n.. Agrees to taper/DC Seroquel, Thorazine, BuSpar, mirtazapine which have not been that helpful. -long history of alcoholism making benzodiazepines a challenging choice to help with anxiety -continue to monitor ammonia level -Hx of hep c 10/09 Patient continues to vacillate between feeling better and still feeling anxious and depressed. He slept better with Zyprexa at bedtime but still reports it was not enough and that anxiety is bothersome. Again reviewed medications and patient agrees to increase Zyprexa dose at bedtime. Also discussed ammonia returning to normal although patient has remained on lactulose; he says it is helping with constipation and will continue. Other options also discussed but agrees to Zyprexa increase for now need continued admission to ensure that ammonia remains stable and hyperammonemia stays resolved 10/10 Yesterday patient was complaining that he felt like he was stuttering though medical writer did not observe this. Today he reports he feels his tongue is swelling and it is harder to talk; experiences intermittent. Informatics Nurse could not visualize tongue swelling however Patient responded well to Benadryl p.o. and then Cogentin and he reported tongue swelling decreased. Patient's Zyprexa has been increasing in last night was increased to 20 mg; will discontinue out of concern for dystonic reaction. Discussed this and patient agrees. Discussed further medication management, patient agrees to increase Vraylar and clonidine at bedtime dc zyprexa due to dystonia increase Vraylar to 4.5 increase clonidine to 0.2mg qhs for continued insomnia 10/11 Tongue swelling remains fully resolved. Patient remains very anxious reports much trouble sleeping. Informatics Nurse reviewed chart, looking it history of medication management during past admissions dating back to 2013. For over a decade, patient has been prescribed benzodiazepines to deal with his anxiety, despite his chronic struggles with substance abuse. Informatics Nurse discussed this with patient who who agreed to trial given his ongoing, extensive anxiety -patient has severe anxiety that does not seem to resolve with extension medication management trials; while prescribing clonazepam has its risks, especially given patient's struggles with substance abuse, it is medical writer's opinion that his level of anxiety requires treatment and that the potential benefit from treating with a benzodiazepine outweighs the potential risk. Patient will likely always struggles substance abuse to varying degrees. And His unrelenting anxiety will likely always be a significant trigger to relapse. Patient is miserable due to his anxiety and this misery also prompts relapse. Treating his anxiety with a benzodiazepine has the potential to significantly reduce the symptoms and help him to better function in life; conversely benzodiazepines could be abused. However given the longevity of his substance abuse history (and the longevity of being treated with benzodiazepines) it is unlikely that this clonazepam will significantly worsened his chronic substance abuse struggles. 10/12 patient reports that for the 1st time in a long time he slept through the night and is feeling much better. He said his anxiety is much lower and he is feeling really good. Patient thankful for being started on clonazepam. 10/13- patient feeling better back on clonazepam- will likely be looking for dc - whether he can manage clonazepam with hx etoh/cocaine use- is the question- he does seem more stable than he has been in years with clonazepam and structure of unit- suggest short week at a time rxs with refills on time only for clonazepam on dc 10/14 due to feeling relief from clonazepam, from anxiety - would like lower gabapentin- which he feels hasn't been as helpful and he feels is resulting in some tingling of fingers/hand- (not sure how he can say it is that medication) given not great idea of combining them lower dose does make sense so dec from 600mg tid to 400mg tid for now- again advise on dc to only give weekly benzo refills Plan: continue depakote er 1000 mg; patient developed hyperammonemia; will continue to monitor -lactulose scheduled Start clonazepam 0.5 mg b.i.d. Continue Vraylar to 4.5 mg since Depakote lowered Continue clonidine to 0.2mg qhs for continued insomnia DC zyprexa; concern for dystonic reaction taper/DC: Seroquel, Thorazine, BuSpar, mirtazapine which have not been that helpful. Patient educated on: medication risk/benefits Informed Consent: understands Reason for continued inpatient stay Substantial Risk for: rapid decompensation Time Spent With Patient Time: Total time managing care of this patient today ____ minutes.
[2024-10-14 12:07] VITALS: BP 132/70
[2024-10-14] MEDS: Lidocaine 4 % Patch ADH..PATCH 2 PATCH TRANSDERMA (12:08)
[2024-10-14] MEDS: Gabapentin 400 MG CAPSULE PO ×2 (15:38→20:08)
[2024-10-14] MEDS: Sodium Chloride 0.65 % Nasal 44 ML SPRBTL 1 SPRAY NOSTRIL-B ×2 (16:36→18:01)
[2024-10-14] MEDS: Lactulose 20 GM/30 ML SOLUTION 30 GM PO (16:36)
[2024-10-14 16:37] VITALS: BP 149/92
[2024-10-14 19:54] VITALS: BP 131/80; PULSE 76; RESP 15; TEMP 37.2; O2SAT 99
[2024-10-14] MEDS: traZODone HCL 100 MG TABLET 200 MG PO (20:07)
[2024-10-14] MEDS: Divalproex Sodium ER 500 MG TAB.ER.24H 1000 MG PO (20:07)
[2024-10-14] MEDS: cloNIDine HCL 0.2 MG TABLET PO (20:08)
[2024-10-14] MEDS: Simethicone 80 MG TAB.CHEW PO (20:08)
[2024-10-15 08:00] VITALS: BP 111/65; PULSE 65; RESP 16; TEMP 37.1; O2SAT 98
[2024-10-15] MEDS: cloNIDine HCL 0.1 MG TABLET PO ×2 (08:31→12:06)
[2024-10-15] MEDS: Gabapentin 400 MG CAPSULE PO (08:31)
[2024-10-15] MEDS: Cariprazine HCl 1.5 MG CAPSULE 4.5 MG PO (08:31)
[2024-10-15] MEDS: Cholecalciferol (Vitamin D3) 25 MCG TABLET 50 MCG PO (08:31)
[2024-10-15] MEDS: busPIRone HCl 5 MG TABLET PO (08:32)
[2024-10-15] MEDS: Lactulose 20 GM/30 ML SOLUTION 30 GM PO (08:32)
[2024-10-15] MEDS: NaPROXEN 500 MG TABLET PO (08:32)
--- NOTE | 2024-10-15 08:53 | PM.PSYDC ---
DS: Providers Provider Date of Service: 10/15/24 Date of admission: 09/25/24 17:56 Date of discharge: 10/15/24 Primary care physician: None Physician Attending physician on admission: Christos Real Consults: 09/25/24 12:36 Consult to Care Team Routine Comment: Reason for consultation: depression, SI Attending physician on discharge: Christos Real DS: Diagnosis Discharge Diagnosis (1) Bipolar disorder, now depressed: Status: Acute (2) Cocaine use disorder: Status: Acute (3) Alcohol use disorder: Status: Acute DS: Medications Discharge Medications Home Medications: Home Medications ?Medication ?Instructions ?Recorded ?Confirmed benztropine 1 mg tablet 1 mg PO DAILY 09/25/24 09/25/24 buspirone 15 mg tablet 15 mg PO TID 09/25/24 09/25/24 clonidine HCl 0.1 mg tablet 0.1 mg PO TID 09/25/24 09/25/24 divalproex 250 mg tablet,delayed 750 mg PO BEDTIME 09/25/24 09/25/24 release propranolol 10 mg tablet 10 mg PO BID 09/25/24 09/25/24 trazodone 150 mg tablet 150 mg PO BEDTIME 09/25/24 09/25/24 Data Data Completed and Pending Completed studies during hospitalization [Text1]: 10/09/24 08:38 Ammonia 40 DS: Summary Hospital Course Hospital Course: 09/27 lowered clonidine 0.1mg po BID, scheduled propanolol 5mg po TID. d/c trazodone 150mg po qhs, start seroquel 100mg po qhs.continue depakote. 09/28 increase gabapentin to 600mg po TID. seroquel 100mg po TID. propanolol 20mg po TID, wants trazodone back 200mg po qhs. will check depakote and ammonia close to nighttime dose. consider naltrexon, may help with cravings 09/29: Depakote level tomorrow. Consider increase based on results. Increase Trazodone 300 mg HS. Start Vit D. 08/31: Increase Depakote to 1,250 mg HS. Start Aleve. Start Prazossin 2 mg HS. 10/01pt says he's feeling a little better; still depressed but less so and more hopeful. Pt feels medications are helping; depakote recently increased; discussed trying clonidine instead of propranol. He also wants off Seorquel and agrees to make it a prn -ordered labs 10/02 self-reflecting; realizing hx of trauma affecting relationships; agrees to increase depakote, start /13 Patient shared that he thought quite a bit about yesterday's and realizes that he has misconceptions daily and with all different people, misinterpreting their behaviors as negative towards himself when really they are not. Patient shared that he has constant negative self-deprecating thoughts that he struggles with. Patient very much wanted to continue with medication management and wanted to add a medication to help with depression anxiety; given that he is having trouble sleeping, show card writer reviewed risks/side effects and patient agreed to start mirtazapine. Did not want to continue with Seroquel since it caused weight gain. Reviewed risks/side effects of regimen including antipsychotics and patient agrees to remain on Vraylar 09/24 Patient said he slept a little better with mirtazapine but wonders if it could be increased. Patient discussed that he has chronic insomnia and understands he will be difficult to treat; also wonders if insomnia has been worse since he quit smoking cannabis which was chronic. Says trazodone has helped in the past and only causes bad dreams for little while. Says last night no nightmares. Denies any SI and reports has had no attempt for years. 10/05 Electrical Prospecting Observer reviewed labs and ammonia elevated; discussed with patient who agrees to lower Depakote back to a 1000 mg and instead increase Vraylar. Patient remains quite anxious and continues to struggle with insomnia. Reviewed options and patient decided that even though Seroquel causes weight gain, it is something that has always helped him sleep and he agrees to have it restarted with p.r.n. available. 10/06: Continue current regimen and plans try to stabilize sleep and if tonight he sleeps poorly I may switch him to low-dose Thorazine. 10/07: Continue current regimen and plans for stabilization and medication management. Discontinued Seroquel, decreased trazodone to 200 mg and added chlorpromazine 50 mg. Put him back on lactulose 10/08 Patient reports overall doing better though he still struggles with depression and significant anxiety. Discussed medication management at length. He said Paxil has helped in the past for anxiety; does not think BuSpar is helping much in wonders about getting off of it... Hoping that he will tolerate Depakote since he feels that was very helpful and is concerned about continued elevated ammonia level. He agrees to continue monitoring and also that lactulose does help with chronic constipation. Patient does not want to take Seroquel due to it causing weight gain and overall not being that effective; Thorazine minimally effective for sleep; mirtazapine not helpful for sleep. Agrees to switch to Zyprexa at bedtime for insomnia and as a help for mood stabilization; also to be used as a p.r.n.. Agrees to taper/DC Seroquel, Thorazine, BuSpar, mirtazapine which have not been that helpful. -long history of alcoholism making benzodiazepines a challenging choice to help with anxiety -continue to monitor ammonia level -Hx of hep c 10/09 Patient continues to vacillate between feeling better and still feeling anxious and depressed. He slept better with Zyprexa at bedtime but still reports it was not enough and that anxiety is bothersome. Again reviewed medications and patient agrees to increase Zyprexa dose at bedtime. Also discussed ammonia returning to normal although patient has remained on lactulose; he says it is helping with constipation and will continue. Other options also discussed but agrees to Zyprexa increase for now need continued admission to ensure that ammonia remains stable and hyperammonemia stays resolved 10/10 Yesterday patient was complaining that he felt like he was stuttering though show card writer did not observe this. Today he reports he feels his tongue is swelling and it is harder to talk; experiences intermittent. Electrical Prospecting Observer could not visualize tongue swelling however Patient responded well to Benadryl p.o. and then Cogentin and he reported tongue swelling decreased. Patient's Zyprexa has been increasing in last night was increased to 20 mg; will discontinue out of concern for dystonic reaction. Discussed this and patient agrees. Discussed further medication management, patient agrees to increase Vraylar and clonidine at bedtime dc zyprexa due to dystonia increase Vraylar to 4.5 increase clonidine to 0.2mg qhs for continued insomnia 10/11 Tongue swelling remains fully resolved. Patient remains very anxious reports much trouble sleeping. Electrical Prospecting Observer reviewed chart, looking it history of medication management during past admissions dating back to 2013. For over a decade, patient has been prescribed benzodiazepines to deal with his anxiety, despite his chronic struggles with substance abuse. Electrical Prospecting Observer discussed this with patient who who agreed to trial given his ongoing, extensive anxiety -patient has severe anxiety that does not seem to resolve with extension medication management trials; while prescribing clonazepam has its risks, especially given patient's struggles with substance abuse, it is show card writer's opinion that his level of anxiety requires treatment and that the potential benefit from treating with a benzodiazepine outweighs the potential risk. Patient will likely always struggles substance abuse to varying degrees. And His unrelenting anxiety will likely always be a significant trigger to relapse. Patient is miserable due to his anxiety and this misery also prompts relapse. Treating his anxiety with a benzodiazepine has the potential to significantly reduce the symptoms and help him to better function in life; conversely benzodiazepines could be abused. However given the longevity of his substance abuse history (and the longevity of being treated with benzodiazepines) it is unlikely that this clonazepam will significantly worsened his chronic substance abuse struggles. 10/12 patient reports that for the 1st time in a long time he slept through the night and is feeling much better. He said his anxiety is much lower and he is feeling really good. Patient thankful for being started on clonazepam. 10/13- patient feeling better back on clonazepam- will likely be looking for dc - whether he can manage clonazepam with hx etoh/cocaine use- is the question- he does seem more stable than he has been in years with clonazepam and structure of unit- suggest short week at a time rxs with refills on time only for clonazepam on dc 10/14 due to feeling relief from clonazepam, from anxiety - would like lower gabapentin- which he feels hasn't been as helpful and he feels is resulting in some tingling of fingers/hand- (not sure how he can say it is that medication) given not great idea of combining them lower dose does make sense so dec from 600mg tid to 400mg tid for now- again advise on dc to only give weekly benzo refills Plan: continue depakote er 1000 mg; patient developed hyperammonemia; will continue to monitor -lactulose scheduled Start clonazepam 0.5 mg b.i.d. Continue Vraylar to 4.5 mg since Depakote lowered Continue clonidine to 0.2mg qhs for continued insomnia DC zyprexa; concern for dystonic reaction taper/DC: Seroquel, Thorazine, BuSpar, mirtazapine which have not been that helpful. Time Spent with Patient Time attestation: Total time managing care of this patient today ____ minutes. Discharge Plan Discharge Patient Disposition: Prison Discharge Diagnosis: Bipolar I disorder, recurrent, moderate most recent episode mixed, in full remission Referrals: [facility] [Other] - 1 Week (Patient referred per his request to [facility] (so[facility] living) Patient will need to follow-up on referral and provide admissions staff copy of photo identification and social security card ) [facility] [Other] - 1 Week (Patient referred per his request to [facility] (sober living) Patient will need to follow-up on referral and provide admissions staff copy of photo identification and social security card ) [facility] ([facility]) [Other] - 1 Week (Patient referred to [facility] for fpc placement. Patient should call daily to determine if fpc placement is available.) [facility] (fpc) [Other] - 1 Week (Prison resources Patient declined referral to fpc placement.) [facility] ([place] [facility] [Other] - 1 Week (Patient declined referral to fpc ) Emanuel Avila: [facility] ([facility]) [Other] - 11/15/24 12:00 pm (Initial Appointment for psychiatric evaluation by provider for psychiatric medication management services Appointment in person at [facility] in [place] ) Iva Coreas: [facility] [Other] - 10/19/24 11:00 am (Initial Diagnostic evaluation for therapy services Appointment in person at [facility] You will need to ask clinician about referral for case management services at initial appointment.) Physician,None [Primary Care Provider] - 1 Week Discharge Medications: No Action divalproex 250 mg tablet,delayed release (DR/EC) 750 mg PO BEDTIME propranolol 10 mg tablet 10 mg PO BID trazodone 150 mg tablet 150 mg PO BEDTIME buspirone [BuSpar] 15 mg Tablet 15 mg PO TID clonidine HCl 0.1 mg tablet 0.1 mg PO TID benztropine 1 mg tablet 1 mg PO DAILY Discharge Orders: Discharge Order (Routine); Ordered 10/15/24 Ordered By: Christos Real Diet: Regular diet Activity on Discharge: As tolerated Stand Alone Forms: Patient Portal Discharge page Print Language: Romanian Care Plan Goals: Maintain mood and safe behaviors Take medications as prescribed Continue to pursue sobriety Practice coping skills Continue with outpatient providers and reach out to them as needed Health Concerns: Mood stability and behaviors Sobriety Hyperstension Plan of Treatment: Follow up with your PCP, psychiatric provider and other outpatient providers regarding above concerns Take medications as prescribed Assessment: Risk assessment at time of discharge:? Patient was interviewed prior to discharge and found to be fully oriented and without any SI or HI. Patient has improved insight and judgment and wants to continue treatment. Patient is not in imminent risk of harm to self or others and has a safety plan that includes presenting to the closest ER or calling 911 if feeling unsafe.? Patient has been observed closely by nursing and unit staff throughout admission; patient has not engaged in any behaviors that suggest dangerousness to self or others and has demonstrated appropriate behaviors and impulse control
[2024-10-15] MEDS: Naloxone HCl Nasal TAKE HOME 4 MG SPRAY 8 MG NOSTRILALT (09:23)
[2024-10-15] MEDS: clonazePAM 1 MG TABLET PO (09:23)
[2024-10-15] MEDS: Lidocaine 4 % Patch ADH..PATCH 2 PATCH TRANSDERMA (12:05)
[2024-10-15 12:06] VITALS: BP 128/74
== END 2024-10-15 13:30 | disposition home or self-care (01) | DRG 885 ==
LOC: HO.ED 13:48 → HO.PM5 18:07
PROVIDERS: Clinical Nurse Specialist Psychiatric/Mental Health, Adult; Registered Nurse Emergency; Admitting Provider Psychiatry & Neurology Psychiatry; Emergency Provider Emergency Medicine; Visit Provider Psychiatry & Neurology Psychiatry
DX: F31.62 Bipolar disorder, current episode mixed, moderate (principal); R45.851 Suicidal ideations; Z59.02 Unsheltered homelessness; F43.10 Post-traumatic stress disorder, unspecified; F14.10 Cocaine abuse, uncomplicated; F10.10 Alcohol abuse, uncomplicated; Z87.891 Personal history of nicotine dependence; Z20.822 Contact with and (suspected) exposure to COVID-19; Z79.899 Other long term (current) drug therapy
CPT/HCPCS: 0241U; 36415; 80053; 80061; 80076; 80143; 80164; 80179; 80307; 81003; 82140; 82306; 83036; 84443; 85025; 93005; 99285; S9485

== ENCOUNTER → 2024-09-25 16:16 | Outpatient (BNV) | payer OTHER, SELFPAY | PROVIDERS: Admitting Provider Psychiatry & Neurology Psychiatry; Emergency Provider Emergency Medicine; Visit Provider Internal Medicine Cardiovascular Disease | DX: R94.31 Abnormal electrocardiogram [ECG] [EKG] (principal) | CPT/HCPCS: 93010 ==

== ENCOUNTER → 2024-09-25 17:56 | Outpatient (BNV) | payer OTHER, SELFPAY | PROVIDERS: Admitting Provider Psychiatry & Neurology Psychiatry; Emergency Provider Emergency Medicine; Visit Provider Psychiatry & Neurology Psychiatry | DX: F31.32 Bipolar disorder, current episode depressed, moderate (principal); F14.10 Cocaine abuse, uncomplicated; F10.90 Alcohol use, unspecified, uncomplicated | CPT/HCPCS: 90792; 99231; 99232 ==

== ENCOUNTER 2025-05-11 08:57 | Inpatient (IN) | payer OTHER, SELFPAY ==
[2025-05-11 09:04] VITALS: PULSE 68; RESP 16; TEMP 36.4; O2SAT 99; BMI 27.9
--- NOTE | 2025-05-11 09:08 | ED.GENADULT ---
HPI - General Adult General Chief complaint: Psychiatric Symptoms Stated complaint: having side effects from medication Time Seen by Provider: 05/11/25 09:07 Source: patient Mode of arrival: ambulatory Limitations: no limitations History of Present Illness ED Provider: Erica Sigala NP HPI narrative: Patient is a 49-year-old male with past medical history of Hypertension, anxiety, depression, alcohol use disorder, cocaine use disorder who presents emergency department for evaluation of increasing depression with suicidal ideations. Endorsing recent medication adjustments does not feel as though this is helping. He states about 1.5 months ago he was released from inpatient at [facility] where he has been started on Prozac 40 mg he was feeling very well with this. However after a few weeks he felt as though his symptoms were increasing with depression and anxiety. He spoke with his prescriber about 3 weeks ago and asked to have his Prozac dose increased to 50 mg, and again subsequently about 1 week ago was increased to 60 mg. He states that he then began feeling ?off? brain fog, shaky at times, anxious, increasingly depressed, occasionally sweaty. Three days ago he decided to decrease his Prozac dose back to 40 mg and states that he lives additionally newly prescribed Wellbutrin at that time. However, over the past few days he continues to experience suicidal ideations he does not endorse any specific plan to myself. He denies any homicidal ideations. He denies any recreational drug or alcohol usage. Denies any hallucination Related Data Home Medications ?Medication ?Instructions ?Recorded ?Confirmed hydroxyzine pamoate 50 mg capsule 50 mg PO Q4H PRN Anxiety 05/11/25 05/11/25 lorazepam 1 mg tablet 1 mg PO DAILY PRN Anxiety 05/11/25 05/11/25 losartan 25 mg tablet 25 mg PO DAILY 05/11/25 05/11/25 melatonin 3 mg tablet 6 mg PO BEDTIME insomnia 05/11/25 05/11/25 multivitamin with minerals 1 cap PO DAILY 05/11/25 05/11/25 propranolol 20 mg tablet 20 mg PO BID PRN Anxiety 05/11/25 05/11/25 bupropion HCl 150 mg 24 hr tablet, 150 mg PO QAM 05/12/25 05/12/25 extended release divalproex 500 mg tablet,delayed 1,000 mg PO BEDTIME depressive 05/12/25 05/12/25 release disorder fluoxetine 40 mg capsule 40 mg PO QAM 05/12/25 05/12/25 Previous Rx's ?Medication ?Instructions ?Recorded cholecalciferol (vitamin D3) 50 50 mcg PO DAILY 30 days #30 caps 10/15/24 mcg (2,000 unit) capsule trazodone 100 mg tablet 200 mg (2 x 100 mg) PO BEDTIME 30 10/15/24 days #60 tabs Allergies Allergy/AdvReac Type Severity Reaction Status Date / Time duloxetine (From CYMBALTA) Allergy Unknown RASH Verified 05/11/25 09:05 shrimp Allergy Anaphylaxis Verified 05/11/25 09:05 Review of Systems Review of Systems: Yes all other systems are reviewed and are negative PMFSH Past Medical History Attestation statement: The following information was validated with the patient. Source: old records reviewed Medical History (Updated 05/13/25 @ 16:20 by Sue Finch NP) Post traumatic stress disorder Alcohol use disorder Cocaine use disorder Hypertension Anxiety Depression Social History Social History Household Members: None Housing: Other Do you presently have visiting nurse or other home services: No ( [facility] ) Alcohol intake: former Comment: sleeping Patient Tobacco Use Status: Former Tobacco user Tobacco use type: Cigarette Smoked in Last 30 Days: No e-Cigarette/Vaping Use: Never Used Use of substances other than those prescribed or required for medical reasons: No Substance Use Type: Crack/Cocaine and Marijuana Advance Directives: Yes Advance Directives on File: Yes Advance Directives Date on File: 01/13/21 Do you have a plan to hurt others: No Plan Recently lost weight without trying: No Eating poorly because of decreased appetite: No Nutrition Risks: No Nutritional Risk Poor oral hygiene: No service: No Sexual orientation: Straight/Heterosexual Physical Exam ED Vital Signs: Vital Signs - 24 hr 05/13/25 05:55 05/13/25 10:06 Temperature 97.5 F Pulse Rate 78 Respiratory Rate 18 Blood Pressure 102/61 102/61 Pulse Oximetry 97 Oxygen Delivery Method Room Air BMI result Body Mass Index 27.9 Appearance: Alert.?Oriented to person, place and time. No acute distress.?Normal affect. Eyes: Pupils equal, round and reactive to light.? ENT: Pharynx normal.?? Neck: Normal inspection.? Neck supple.?? CVS: Heart sounds normal. Normal heart rate and rhythm.? Pulses normal.?? Respiratory: No respiratory distress.? Lung sounds clear to auscultation bilaterally?? Abdomen: Soft and non-tender. Normoactive bowel sounds. Skin: Skin warm and dry.? Normal skin color.? ?? Extremities: No lower extremity edema.? No calf ttp? Neuro: Moves all extremities spontaneously. Sensation intact bilaterally. CN II-XII intact. No focal neuro deficits. Ambulates with normal steady gait. Course Reevaluation(s) Reevaluation #1: Patient has been evaluated by care team, deemed inpatient bed search placed on a section 12. Time: 17:52 Reevaluation #2: Time: 14:00 Date: 05/13/25 Provider: Charanjit Ellington MD Patient in physician observation for psychiatric evaluation.? No acute events reported overnight. No current complaints. VS stable.? Patient is in bed search status. Will continue to monitor. Reevaluation #3: Time: 16:25 Date: 05/13/25 Provider: Charanjit Ellington MD Patient in physician observation for psychiatric evaluation.? The patient was accepted for admission on M3 for psychiatric hospitalization. The patient was admitted without incident.. Medications Administered Generic Name Dose Route Start Last Admin Trade Name Freq PRN Reason Stop Dose Admin Hydroxyzine HCl 50 mg 05/11/25 22:14 05/13/25 15:13 Hydroxyzine Hcl 50 Mg Tablet PO 50 mg Q4H PRN Administration Anxiety Lorazepam 1 mg 05/11/25 22:14 05/13/25 09:49 Lorazepam 1 Mg Tablet PO 1 mg DAILY PRN Administration Anxiety Losartan Potassium 25 mg 05/12/25 09:00 05/13/25 10:06 Losartan Potassium 25 Mg Tablet PO 25 mg DAILY YOBANI Administration Protocol Lurasidone HCl 20 mg 05/13/25 17:00 05/13/25 17:26 Lurasidone Hcl 20 Mg Tablet PO 20 mg DAILY@1700 YOBANI Administration Melatonin 6 mg 05/11/25 22:15 05/12/25 20:33 Melatonin 3 Mg Tablet PO 6 mg BEDTIME YOBANI Administration Multivitamins/Vitamin C 1 tab 05/12/25 09:00 05/13/25 09:54 Multivitamin Tablet PO Not Given DAILY YOBANI Trazodone HCl 200 mg 05/11/25 22:15 05/12/25 20:33 Trazodone Hcl 100 Mg Tablet PO 200 mg BEDTIME YOBANI Administration Vitamin D 50 mcg 05/12/25 09:00 05/13/25 09:49 Cholecalciferol (Vitamin D3) 25 Mcg Tablet PO 50 mcg DAILY YOBANI Administration Discontinued Medications Generic Name Dose Route Start Last Admin Trade Name Freq PRN Reason Stop Dose Admin Divalproex Sodium 1,000 mg 05/11/25 22:15 05/12/25 20:32 Divalproex Sodium Er 500 Mg Tab.Er.24h PO 1,000 mg BEDTIME YOBANI Administration Fluoxetine HCl 60 mg 05/12/25 09:00 05/13/25 09:50 Fluoxetine Hcl 20 Mg Capsule PO 40 mg DAILY YOBANI Administration Lorazepam 1 mg 05/11/25 14:24 05/11/25 14:38 Lorazepam 1 Mg Tablet PO 05/11/25 14:25 1 mg ONCE ONE Administration Lorazepam 2 mg 05/11/25 22:14 05/12/25 18:13 Lorazepam 1 Mg Tablet PO 2 mg TID PRN Administration Anxiety Non-Formulary Medication 1 mg 05/11/25 22:15 05/11/25 22:50 Guanfacine PO Not Given BEDTIME YOBANI Propranolol HCl 10 mg 05/11/25 22:15 05/11/25 22:50 Propranolol Hcl 10 Mg Tablet PO Not Given BID [facility] Protocol Venlafaxine HCl 225 mg 05/12/25 09:00 05/13/25 09:52 Venlafaxine Hcl Er 75 Mg Cap.Er.24h PO Not Given DAILY YOBANI Medical Decision Making Medical Decision Making MDM Narrative: Patient is a 49-year-old male with past medical history of Hypertension, anxiety, depression, alcohol use disorder, cocaine use disorder who presents emergency department for evaluation of increasing depression with suicidal ideations, and concern about his recent medication adjustments that have not been of benefit form as per HPI. Overall he is well-appearing, nontoxic, afebrile. He offers no physical complaints at this time this physical examination is benign. Plan to obtain screening labs for medical clearance. Differential Diagnosis Differential Diagnoses: The differential diagnosis associated with the presentation includes (See narrative above and below for further detail) Admission/Observation Consideration of admission/observation: Escalation of care including admission/observation considered Patient is being observed in the Emergency Department for depression and suicidal ideation. Observation time was started at 09:47 on 05/11/2025.?The patient is currently stable and non-toxic appearing. Observation is being initiated in the Emergency Department to allow time to help differentiate if the patient's depression and suicidal ideation is due to Substance Induced Mood Disorder and Anxiety versus Major Depressive Disorder, Bipolar Bailey, Bipolar Depression, and Schizophrenia. The patient will receive frequent psychiatric assessments from the provider as well as from nursing staff. The patient will also be monitored for the need of PRN agitation medications such as Haldol, Ativan, and Benadryl. Consult Healthcare Provider Management of the patient was discussed with: Behavioral Health Provider (CARE team) Lab Data MDM Lab Attestation statement: I reviewed the patient's lab results. Urinalysis without evidence of infection or microscopic hematuria. CBC is without leukocytosis in the or thrombocytopenia. No significant electrolyte derangement. No SILVIA. LFTs unremarkable. 05/13/25 15:18 05/13/25 15:18 Labs: Lab Results 05/11/25 05/11/25 Range/Units 10:01 10:39 WBC 7.2 (4.8-10.8) X10*3/uL RBC 4.72 (4.60-5.80) X10*6/uL Hgb 14.6 (14.0-18.0) g/dl Hct 40.5 L (42.0-52.0) % MCV 85.8 (80.0-98.0) fL MCH 30.9 (27.0-33.0) pg MCHC 36.0 (31.0-36.0) g/dl RDW 11.6 (11.0-16.0) % Plt Count 237 D (160-400) X10*3/uL MPV 8.9 L (9.4-12.4) fL Immature Gran % (Auto) 0.1 (0.0-0.4) % Neut % (Auto) 41.6 L (45-73) % Lymph % (Auto) 48.1 H (20-40) % Coke % (Auto) 7.3 (2-11) % Eos % (Auto) 2.5 (0-4) % Baso % (Auto) 0.4 (0-2) % Lymph # (Auto) 3.4 (1.2-4.9) X10*3/uL Coke # (Auto) 0.5 (0.1-1.2) X10*3/uL Eos # (Auto) 0.2 (0.0-0.4) X10*3/uL Baso # (Auto) 0.0 (0.0-0.2) X10*3/uL Abs Immat Gran (auto) 0.01 (0.00-0.03) X10*3/uL Absolute Neuts (auto) 3.0 (2.0-8.3) x10*3/uL Absolute Nucleated RBC 0.000 (0.0-0.012) X10*3/uL Nucleated RBC % (auto) 0.0 (0.0-0.2) /100WBC Sodium 140 (135-145) mmol/L Potassium 4.2 (3.3-5.1) mmol/L Chloride 107 (96-108) mmol/L Carbon Dioxide 26 (22-29) mmol/L Anion Gap 11 L (12-20) BUN 21 H (9-16) mg/dL Creatinine 1.12 (0.5-1.4) mg/dL Estim Creat Clear Calc 91.9 Estimated GFR > 60 Random Glucose 115 (60-115) mg/dL Calcium 9.1 D (8.4-10.2) mg/dL Total Bilirubin 0.4 (0.0-1.0) mg/dL AST 24 (5-37) U/L ALT 20 (0-40) U/L Alkaline Phosphatase 60 (39-117) U/L Total Protein 7.1 (6.5-8.0) g/dL Albumin 4.0 (3.5-5.0) g/dL Urine Color Dark Yellow Urine Appearance Clear Urine pH 5.5 (5.0-9.0) Ur Specific [place] >= 1.030 H (1.005-1.025) Urine Protein Negative (Neg-Trace) mg/dL Urine Glucose (UA) Negative (Negative) mg/dL Urine Ketones Trace (Negative) mg/dL Urine Blood Negative (Negative) Urine Nitrite Negative (Negative) Ur Leukocyte Esterase Negative (Negative) Salicylates < 5.0 L (15-30) mg/dL Urine Opiates Screen Not Detected (Not Detect) Ur Buprenorphine Scrn Not Detected (Not Detect) ng/mL Ur Oxycodone Screen Not Detected (Not Detect) ng/mL Urine Methadone Screen Not Detected (Not Detect) ng/mL Urine Fentanyl Screen Not Detected (Not Detect) Acetaminophen < 3 (<30) mcg/mL Ur Barbiturates Screen Not Detected (Not Detect) Ur Phencyclidine Scrn Not Detected (Not Detect) Ur Amphetamines Screen POSITIVE H (Not Detect) U Benzodiazepines Scrn Not Detected (Not Detect) Urine Cocaine Screen Not Detected (Not Detect) U Marijuana (THC) Screen Not Detected (Not Detect) Ethyl Alcohol < 10 mg/dL Independent Interpretation I performed an independent interpretation of an: EKG (ECG reveals sinus bradycardia with a ventricular rate of 57, normal ISAIAH, QTC 414, no ST-elevation) Radiology Impression Discussion of test interpretation with radiology: I have reviewed the radiologist's reading. Independent Historian Clinical information obtained from an independent historian. History obtained from or confirmed by: EMS External Record Review External record reviewed: Outpatient record (from [facility]) Chronic Conditions Patient?s care impacted by: Other (See narrative above) Social Determinants Patient?s care significantly limited by Social Determinants of Health including: Problems related to primary support group Discharge Plan Discharge Clinical Impression: Depression, Suicidal ideation Patient Disposition: Admitted As Inpatient Interventions: Admission Worksheet (ED) Last Done: 05/13/25 13:33 Discharge Date/Time: 05/13/25 13:43
--- NOTE | 2025-05-11 09:23 | MHC.EDTECH ---
Patient changed over in family room with security and tech. Pt calm and cooperative. Security secured belongings in LOCKER 1 in pod. Belongings list completed.
--- NOTE | 2025-05-11 09:35 | ECG_ITS ---
Test Reason : R/O PROLONGED QT Blood Pressure : */* mmHG Vent. Rate : 57 BPM Atrial Rate : 57 BPM P-R Int : 170 ms QRS Dur : 92 ms QT Int : 426 ms P-R-T Axes : 48 44 33 degrees QTcB Int : 414 ms Sinus bradycardia Minimal voltage criteria for LVH, may be normal variant ( Sokolow-Shay ) Borderline ECG When compared with ECG of 25-Sep-2024 16:18, Criteria for Anterior infarct are no longer Present Referred By: Generic ED Physician Electronically Signed By: Cricket Zarco
[2025-05-11 10:12] LABS: Appearance Urine Clear; Glucose Urine UA Negative (Negative); PH 5.5 (5.0-9.0); Specific Gravity - Urine >= 1.030 (1.005-1.025)
[2025-05-11 10:19] LABS: Cannabinoid Screen Urine Not Detected (Not Detect)
[2025-05-11 10:44] LABS: MANUAL DIFF FLAG NO
--- OUTSIDE RECORDS SUMMARY | 2025-05-11 10:45 | XMS_ITS | Encounter Summary ---
Author Organization [employer] Address [address] [place] [address] Care Team Providers Care Customer Training Specialist Name Role Phone Russel Weinstein MD Primary Care Prov ider Encounter Details Date Type Department Care Team (Late st Contact Info) Description 04/09/2025 Orders Only [facility] [address] [place] [address] Hansa Martinez MA Social History Tobacco Use Types Packs/Day Years Used Date Smoking Tobacco: Every Day Cigarettes 0.5 30.5 Started: 1994 Smokeless Tobacco: Never Alcohol Use Standard Drinks/Week Comments Not Currently 0 (1 standard drink = 0.6 oz pur e alcohol) Depression Answer Date Recorded Patient Health Questionnaire-9 Score 17 08/15/2024 Patient Health Questionnaire-9 Score 17 08/15/2024 Last PHQ-9: Questionnaire Data Not on file 0 08/15/2024 Housing Stability Answer Date Recorded What is your housing situation today? I do not have housing (Staying with others, in a hotel, in a skilled nursing, living outside on the street, on a beach, in a car, or in a park 08/15/[address] you li ve. Do you have problems with any of the following? None of the above 08/15/2024 Food Insecurity Answer Date Recorded Within the past 12 months, y ou worried that your food would run out before you got money to buy more: Often true 08/15/2024 Within the past 12 months,th e food you bought just didn't last and you didn't have enough money to get more: Often true Transportation Answer Date Recorded In the past 12 months, has l ack of transportation kept you from medical appts, meetings, work or from getting things needed for daily living? Yes, it has kept me from non-medical meetings, work, or getting things that I need 08/15/2024 Utilities Answer Date Recorded In the past 12 months, has t he electric, gas, oil or water company threatened to shut off services in your home? No 08/15/2024 Depression Answer Date Recorded Patient Health Questionnaire-2 Score 2 02/15/2025 Internet Access Answer Date Recorded Internet Access Q1 Yes 08/15/2024 Internet Access Q2 Not on file 08/15/2024 Sex and Gender Information Value Date Recorded Sex Assigned at Male 09/20/2022 10:14 AM EDT Legal Sex Male 10:14 AM EDT Gender Identity Male 09/20/2022 10:14 AM EDT Sexual Orientation Straight 09/20/2022 10 :14 AM EDT documented as of this encounter Functional Status * Over the last 2 weeks, how often have you been bothered by any of the following problems? Question Answer Date of Assessment Author Feeling nervous, anxious, or on edge 3 03/22 3:40 PM EDT Hansa Martinez MA Not being able to stop or co ntrol worrying 0 04/09/2025 3:40 PM EDT Hansa Martinez MA Worrying too much about diff erent things 3 04/09/2025 3:40 PM EDT Hansa Martinez MA Trouble relaxing 3 04/09/2025 3:40 PM EDT Hansa Flynn MA Being so restless that it is hard to sit still 3 04/09/2025 3:40 PM EDT Hansa Martinez MA Becoming easily annoyed or irritable 2 03/22 3:40 PM EDT Hansa Martinez MA Feeling afraid as if somethi ng awful might happen 3 04/09/2025 3:40 PM EDT Hansa Martinez MA RENEE-7 Total Score 17 04/09/2025 3:40 PM EDT Hansa Martinez MA documented as of this encounter Plan of Treatment Not on file documented as of this encounter Visit Diagnoses Not on filedocumented in this encounter Additional Health Concerns Assessment Noted Time PHQ-9 Depression Total Score: 17 024 11:52 AM EDT documented as of this encounter Care Teams Customer Training Specialist Relationship Specialty Start Date End Date Russel Weinstein MD [address] [place] [id number] PCP - General Internal Medicine 02/15/25 documented as of this encounter
[2025-05-11 10:46] LABS: Hematocrit 40.5 % (42.0-52.0); Hemoglobin 14.6 g/dl (14.0-18.0); Imm Gran Abs Auto 0.01 X10*3/uL (0.00-0.03); Imm Gran Pct Auto 0.1 % (0.0-0.4); Lymphocytes Absolute Auto 3.4 X10*3/uL (1.2-4.9); Mean Corpuscular HGB Conc 36.0 g/dl (31.0-36.0); Mean Corpuscular Hemoglobin 30.9 pg (27.0-33.0); Mean Corpuscular Volume 85.8 fL (80.0-98.0); NRBC Abs Auto 0.000 X10*3/uL (0.0-0.012); NRBC Pct Auto 0.0 /100WBC (0.0-0.2); Platelet Count 237 X10*3/uL (160-400); Red Blood Count 4.72 X10*6/uL (4.60-5.80); White Blood Count 7.2 X10*3/uL (4.8-10.8)
[2025-05-11 10:59] LABS: Acetaminophen LAB < 3 mcg/mL (<30); Alanine Aminotransferase 20 U/L (0-40); Albumin Level 4.0 g/dL (3.5-5.0); Alkaline Phosphatase 60 U/L (39-117); Anion Gap 11 (12-20); Aspartate Amino Transferase 24 U/L (5-37); Blood Urea Nitrogen 21 mg/dL (9-16); Calcium 9.1 mg/dL (8.4-10.2); Carbon Dioxide 26 mmol/L (22-29); Chloride 107 mmol/L (96-108); Creatinine Clr Calc Pharmacy 91.9; Estimated Glomerular Filt Rate > 60; Potassium 4.2 mmol/L (3.3-5.1); Salicylate < 5.0 mg/dL (15-30); Sodium 140 mmol/L (135-145); Total Protein 7.1 g/dL (6.5-8.0)
--- NOTE | 2025-05-11 11:05 | PC.NURSE ---
medication reconciliation complete with [facility] [id number] [place] [address] pharmacist Bonifacio Kapoor Provider LAURENCE acevedo notified.
--- NOTE | 2025-05-11 11:53 | PC.NURSE ---
per kristina ohara scientist propagator, there were discrepancies in what patient reported to her the medications he was taking and what pharmacist reported to this RN. [facility] pharmacy looked at external controlled medications and verified the ativan rx was for 1mg instead of 2mg. The buproprion rx was never filled, and prozac rx to be verified by [facility] pharmacy. This RN spoke with Alejandra yan supervisor at [phone]. loading supervisor to look into patient records and reports she will call back with prescription information
[2025-05-11 15:28] VITALS: BP 156/85; PULSE 60; RESP 13; TEMP 37.2; O2SAT 97
--- NOTE | 2025-05-11 19:43 | PC.NURSE ---
Phone call to [facility] and spoke with record press supervisor who states that she will fax over the most recent medication list.
--- NOTE | 2025-05-12 00:52 | PC.NURSE ---
Phone call made to [facility] and obtained medication list. Spoke with Dr. Acosta who will order medications. Talked with pharmacy about medication rec. Pt currently asleep on bed in room.
[2025-05-12 08:02] VITALS: BP 134/87; PULSE 70; RESP 18; TEMP 36.8; O2SAT 99
[2025-05-12 08:23] VITALS: BP 134/87
--- NOTE | 2025-05-12 08:32 | PC.NURSE ---
pt reports he self-tapered his Prozac to 40mg from 60mg. Dose adjusted in MAR, pharmacy aware
--- NOTE | 2025-05-12 09:08 | PHA.MEDREC ---
Addendum entered by Isabel Hobbs [facility] 05/12/25 09:25: Reviewed Original Note: Pharmacy Consult ? Medication Reconciliation Pharmacy has completed the medication reconciliation. Per Nurse Irma Enamorado, patient reports he is no longer taking venlafaxine or quetiapine. He only takes fluoxetine 40 mg, and lorazepam 1 mg daily prn. Used claims to confirm the rest of medications.
--- NOTE | 2025-05-12 11:52 | PC.NURSE ---
Pt resting on couch, sleeping, respirations even and unlabored
[2025-05-12 18:02] VITALS: BP 155/95; PULSE 95; RESP 16; TEMP 36.6; O2SAT 96
--- NOTE | 2025-05-12 20:25 | PC.NURSE ---
pt awake at this time, calm and cooperative, out of bed to use the phone
[2025-05-13 05:55] VITALS: BP 102/61; PULSE 78; RESP 18; TEMP 36.4; O2SAT 97
--- NOTE | 2025-05-13 09:55 | PC.NURSE ---
Pt reports he has not been on effexor for a few months, order discontinued. Pt also reports he takes 40mg prozac not 60mg.
[2025-05-13 10:06] VITALS: BP 102/61
--- NOTE | 2025-05-13 13:33 | PC.NURSE ---
RN to RN report given to Admitting to room 324-1.
[2025-05-13 13:51] VITALS: BP 135/91; PULSE 88; RESP 20; TEMP 36.4; O2SAT 99
[2025-05-13 14:05] VITALS: BMI 29.8
--- NOTE | 2025-05-13 14:12 | P.HPPS_ITS ---
HPI Date of Service: 05/13/25 Chief Complaint: SI Sources of Information: patient interviewed, chart reviewed and crisis/core team assessment reviewed HPI Subjective Notes: Gonzalez Warning and Conditional Voluntary Narrative: Patient is a 49 year old male with hx of Bipolar d/o, PTSD, cocaine use d/o and alcohol use d/o who self presented to ER d/t suicidal ideation secondary to increased depression. Per crisis report, patient self presented to ED due to increased depressive symptoms, recent changes to his psychiatric medications and suicidal ideation. He reports his most recent inpatient psychiatric hospitalization was at [facility] in February 2025. Patient describes feeling off for the past couple of weeks. Over the past week, he reports frequent bouts of crying, social withdrawal, and mood lability. Patient reports having thoughts of jumping out of his window or urges to jump from a bridge [place]. Denies HI/VH/AH. History of multiple inpatient psychiatric hospitalizations. Patient reports having an outpatient psychiatrist in [place] however can not recall the name of the provider or the name of the agency. He does not have an outpatient therapist. Currently residing in a sober home. Utox positive for amphetamines During admission assessment, pt presents alert and oriented x3. Calm and cooperative. Pt reports feeling anxious and depressed ; pt stated, I was at [facility] 2 months ago and they started me on Prozac. I was having a lot of anxiety. My doctor increased it to 60mg and I felt like I wanted to jump out a window . Patient reports suicidal ideation with no plan. Pt stated, I've been feeling this way for the last two days. I don't know why. My daughter told me on Fathers Day that she doesn't want to see me. It hit me hard. That and my meds probably have something to do with my mood . Patient denies any substance use; pt reports he has not used substance in 7 months. He currently resides in a sober house. denies HI/VH/AH. Past Psychiatric History: History of multiple inpatient psychiatric hospitalizations. treatment?trials: L ithium;?cause?sexual?side?effects?so?switch?to?Depakote?which?he?says?works?well . Seroquel, Thorazine, Buspar, Abilify, Wellbutrin, Mirtazepine, Gabapentin, Zyprexa: have not been that helpful. Reports?ECT?in?the?past,?3?independent?times Prescriber: Ryne ([place]) Therapist: does not have one at this time. hx of SIB: denies Medical Evaluation Reviewed: Yes [facility] Medical History (Updated 05/13/25 @ 16:20 by Sue Finhc NP) Post traumatic stress disorder Alcohol use disorder Cocaine use disorder Hypertension Anxiety Depression Family History: Brother: Depression Sister: Anxiety Social History: Lives in a sober home. single and . One adult daughter who he does not speak to. Disability. Highest level of education completed high school diploma. Substance History: History of alcohol and cocaine use. Utox positive for amphetamines. Trauma History: patient states he was traumatized by his divorce and inability to see his daughter. Diagnostics Vital Signs (24Hr): Vital Signs - 24 hr 05/12/25 18:02 05/13/25 05:55 05/13/25 10:06 Temperature 97.9 F 97.5 F Pulse Rate 95 78 Respiratory Rate 16 18 Blood Pressure 155/95 H 102/61 102/61 Pulse Oximetry 96 97 Oxygen Delivery Method Room Air Room Air 05/13/25 13:51 Temperature 97.5 F Pulse Rate 88 Respiratory Rate 20 Blood Pressure 135/91 H Pulse Oximetry 99 Oxygen Delivery Method Room Air BMI result Body Mass Index 29.8 Labs 05/13/25 15:18 05/13/25 15:18 Meds/Allergies Meds Home Medications ?Medication ?Instructions ?Recorded ?Confirmed ?Type hydroxyzine pamoate 50 mg capsule 50 mg PO Q4H PRN Anx iety 05/11/25 05/11/25 History lorazepam 1 mg tablet 1 mg PO DAILY PRN Anxiety 05/11/25 History losartan 25 mg tablet 25 mg PO DAILY 05/11/25 06/12/15 History melatonin 3 mg tablet 6 mg PO BEDTIME insomnia 05/11/25 History multivitamin with minerals 1 cap PO DAILY 05/11/25 History propranolol 20 mg tablet 20 mg PO BID PRN Anxiety 05/11/25 History bupropion HCl 150 mg 24 hr tablet, 150 mg PO QAM 05/1205/12/25 History extended release divalproex 500 mg tablet,delayed 1,000 mg PO BEDTIME d epressive 05/12/25 05/12/25 History release disorder fluoxetine 40 mg capsule 40 mg PO QAM 05/12/25 History Allergies Allergies Allergy/AdvReac Type Severity Reaction Status Date / Time duloxetine (From CYMBALTA) Allergy Unknown RASH Verified 05/11/25 09:05 shrimp Allergy Anaphylaxis Verified 05/11/25 09:05 Mental Status Exam Mental Status Exam Narrative: Pt is alert and oriented; behavior is cooperative and calm; dressed in casual attire; mood is described as anxious and depressed ; eye contact appropriate; Speech is normal rate, volume and not pressured; thought process is organized and goal directed; Thought content is on tx; denies HI/VH/AH. Patient reports suicidal ideation. Assessment & Plan Assessment & Plan (1) Bipolar disorder, now depressed: Status: Acute Qualifiers: Current episode severity: unspecified Qualified Code(s): F31.30 - Bipolar disorder, current episode depressed, mild or moderate severity, unspecified Code(s): F31.30 - Bipolar disorder, current episode depressed, mild or moderate severity, unspecified (2) PTSD (post-traumatic stress disorder): Status: Acute Code(s): F43.10 - Post-traumatic stress disorder, unspecified Plan Patient is a 49 year old male with hx of Bipolar d/o, PTSD, cocaine use d/o and alcohol use d/o who self presented to ER d/t suicidal ideation secondary to increased depression. Plan: CV 15 minute safety checks Continue home medications Start: Clonidine 0.1 mg PO bedtime Latuda 20mg PO daily@1700 DC Prozac Obtain collateral Encourage groups Discharge planning Patient educated on: diagnosis and medication risk/benefits Reason for continued inpatient stay Substantial Risk for: harm to self and med/psych decompensation Statement Statement: I have reviewed the history and physical and performed a pertinent examination on my patient. No changes have occurred unless specified. If the History and Physical was not performed prior to admission, the Hospitalist's service will be consulted for completing the admission physical. Time Spent With Patient Time: Total time managing care of this patient today _60___ minutes.
[2025-05-13 15:25] LABS: MANUAL DIFF FLAG NO
[2025-05-13 15:29] LABS: Hematocrit 46.0 % (42.0-52.0); Hemoglobin 16.2 g/dl (14.0-18.0); Imm Gran Abs Auto 0.02 X10*3/uL (0.00-0.03); Imm Gran Pct Auto 0.2 % (0.0-0.4); Lymphocytes Absolute Auto 4.1 X10*3/uL (1.2-4.9); Mean Corpuscular HGB Conc 35.2 g/dl (31.0-36.0); Mean Corpuscular Hemoglobin 30.5 pg (27.0-33.0); Mean Corpuscular Volume 86.5 fL (80.0-98.0); NRBC Abs Auto 0.000 X10*3/uL (0.0-0.012); NRBC Pct Auto 0.0 /100WBC (0.0-0.2); Platelet Count 281 X10*3/uL (160-400); Red Blood Count 5.32 X10*6/uL (4.60-5.80); White Blood Count 8.7 X10*3/uL (4.8-10.8)
[2025-05-13 15:33] LABS: Ammonia 52 umol/L (13-55)
[2025-05-13 15:41] LABS: Alanine Aminotransferase 28 U/L (0-40); Albumin Level 4.5 g/dL (3.5-5.0); Alkaline Phosphatase 70 U/L (39-117); Anion Gap 14 (12-20); Aspartate Amino Transferase 24 U/L (5-37); Blood Urea Nitrogen 17 mg/dL (9-16); Calcium 10.1 mg/dL (8.4-10.2); Carbon Dioxide 26 mmol/L (22-29); Chloride 103 mmol/L (96-108); Creatinine Clr Calc Pharmacy 110.6; Estimated Glomerular Filt Rate > 60; Potassium 4.4 mmol/L (3.3-5.1); Sodium 139 mmol/L (135-145); Total Protein 7.9 g/dL (6.5-8.0)
--- NOTE | 2025-05-13 16:47 | PC.NURSE ---
Jeff Leong was admitted to [facility] at 13:45 from Pod on [address]? for treatment of depression and SI.? Precipitants of admission include ?thinking about jumping off bridge [place],? tapering off of medications being taken, and ?wanting to change the medications I?m on.? Pt is alert and oriented x3. Pt is cooperative with staff, but did give inconsistent reports between nurse and LENS MARKER. ? Mood confirms feeling depressed and anxious. Affect presents as anxious and guarded.? Pt denies HI and AVH, does not appear internally occupied or responding to internal stimuli.? Pt denies experiencing paranoia and delusions.? Thought process is linear.? Pt admits to SI with no intent of following through with plan of going to a bridge to jump from and [place].? Pt also admitted to SI regarding jumping from a window on [address].? Appetite is present and no significant weight loss.? Pt expresses no difficulty sleeping and denies difficulty concentrating on tasks.? Pt denies taking substances and states no known history of seizure disorders.? Pt mentions a history of alcohol, cocaine, and heroin use and is sober.? Tox screen tested positive for amphetamines, pt denies taking any substances containing amphetamine.? Existing medical issues include hypertension, depression, and anxiety.? Denies physical complaints. Safety checks set for 15 minutes.??
[2025-05-13 19:23] VITALS: BP 135/90; PULSE 93
[2025-05-13 21:19] VITALS: BP 140/80; PULSE 89; RESP 16; TEMP 36.6; O2SAT 98
[2025-05-14 08:00] VITALS: BP 114/68; PULSE 64; RESP 14; TEMP 36.6; O2SAT 98
--- NOTE | 2025-05-14 09:56 | P.PNPSI_ITS ---
Subjective Subjective Date of Service: 05/14/25 Reason For Visit: SI Subjective Notes: Conditional Voluntary Interim History: Patient continues to report feeling anxious and depressed. He reports sleeping improved last evening. denies any side effects from medications; pt reports he is glad to be taken off Prozac. denies SI/HI/VH/AH. showered. pt reports he will try to attend groups today. Continue current tx plan. Medication Compliance: Yes Side effects from medications: No Mental Status Exam Mental Status Exam Narrative: Pt is alert and oriented; behavior is cooperative and calm; dressed in casual attire; mood is described as anxious and depressed ; eye contact appropriate; Speech is normal rate, volume and not pressured; thought process is organized and goal directed; Thought content is on tx; denies SI/HI/VH/AH. Diagnostics Vital Signs (24Hr): Vital Signs - 24 hr 05/13/25 10:06 05/13/25 13:51 05/13/25 19:23 Temperature 97.5 F Pulse Rate 88 93 Respiratory Rate 20 Blood Pressure 102/61 135/91 H 135/90 H Pulse Oximetry 99 Oxygen Delivery Method Room Air 05/13/25 21:19 05/14/25 08:00 Temperature 97.8 F 97.8 F Pulse Rate 89 64 Respiratory Rate 16 14 Blood Pressure 140/80 H 114/68 Pulse Oximetry 98 98 Oxygen Delivery Method Room Air Room Air BMI result Body Mass Index 29.8 Labs 05/13/25 15:18 05/13/25 15:18 Labs: Laboratory Results - last 48 hr 05/13/25 15:18 WBC 8.7 RBC 5.32 Hgb 16.2 Hct 46.0 MCV 86.5 MCH 30.5 MCHC 35.2 RDW 11.9 Plt Count 281 MPV 9.1 L Immature Gran % (Auto) 0.2 Neut % (Auto) 41.9 L Lymph % (Auto) 47.2 H [place] % (Auto) 6.7 Eos % (Auto) 3.4 Baso % (Auto) 0.6 Lymph # (Auto) 4.1 [place] # (Auto) 0.6 Eos # (Auto) 0.3 Baso # (Auto) 0.1 Abs Immat Gran (auto) 0.02 Absolute Neuts (auto) 3.6 Absolute Nucleated RBC 0.000 Nucleated RBC % (auto) 0.0 Sodium 139 Potassium 4.4 Chloride 103 Carbon Dioxide 26 Anion Gap 14 BUN 17 H Creatinine 0.96 Estim Creat Clear Calc 110.6 Estimated GFR > 60 Random Glucose 124 H Calcium 10.1 D Total Bilirubin 0.4 Direct Bilirubin 0.1 AST 24 ALT 28 Alkaline Phosphatase 70 Ammonia 52 Total Protein 7.9 Albumin 4.5 Valproic Acid 55.8 Medications Medications Current Medications Acetaminophen (Acetaminophen 325 Mg Tablet) 650 mg PO Q6H PRN PRN Reason: Headache/Pain, Scale 1-10 Al Hydroxide/Mg Hydroxide (Magnesium Hydrox/Alum Hydrox 30 Ml Oral.Susp) 30 ml PO Q6H PRN PRN Reason: Heartburn/Nausea Clonidine HCl (Clonidine Hcl 0.1 Mg Tablet) 0.1 mg PO BEDTIME YOBANI; Protocol Last Admin: 05/13/25 21:23 Dose: 0.1 mg Divalproex Sodium (Divalproex Sodium 500 Mg Tablet.Dr) 1,000 mg PO BEDTIME YOBANI Last Admin: 05/13/25 21:23 Dose: 1,000 mg Hydroxyzine HCl (Hydroxyzine Hcl 50 Mg Tablet) 50 mg PO Q4H PRN PRN Reason: Anxiety Last Admin: 05/13/25 15:13 Dose: 50 mg Lorazepam (Lorazepam 1 Mg Tablet) 1 mg PO DAILY PRN PRN Reason: Anxiety Last Admin: 05/14/25 08:52 Dose: 1 mg Losartan Potassium (Losartan Potassium 25 Mg Tablet) 25 mg PO DAILY YOBANI; Protocol Last Admin: 05/14/25 08:43 Dose: 25 mg Lurasidone HCl (Lurasidone Hcl 20 Mg Tablet) 20 mg PO DAILY@1700 [facility] Last Admin: 05/13/25 17:26 Dose: 20 mg Magnesium Hydroxide (Milk Of Magnesia 30 Ml Oral.Susp) 30 ml PO DAILY PRN PRN Reason: Constipation Melatonin (Melatonin 3 Mg Tablet) 6 mg PO BEDTIME YOBANI Last Admin: 05/13/25 21:23 Dose: 6 mg Multivitamins/Vitamin C (Multivitamin Tablet) 1 tab PO DAILY YOBANI Last Admin: 05/14/25 08:42 Dose: 1 tab Nicotine Polacrilex (Nicotine Polacrilex 2 Mg Gum) 4 mg BUCCAL Q2H PRN PRN Reason: Nicotine Cravings Propranolol HCl (Propranolol Hcl 20 Mg Tablet) 20 mg PO BID PRN; Protocol PRN Reason: Anxiety Last Admin: 05/13/25 19:23 Dose: 20 mg Quetiapine Fumarate (Quetiapine Fumarate 50 Mg Tablet) 50 mg PO TID PRN PRN Reason: Anxiety Trazodone HCl (Trazodone Hcl 100 Mg Tablet) 200 mg PO BEDTIME YOBANI Last Admin: 05/13/25 21:23 Dose: 200 mg Vitamin D (Cholecalciferol (Vitamin D3) 25 Mcg Tablet) 50 mcg PO DAILY YOBANI Last Admin: 05/14/25 08:41 Dose: 50 mcg Allergies Allergies Allergy/AdvReac Type Severity Reaction Status Date / Time duloxetine (From CYMBALTA) Allergy Unknown RASH Verified 05/11/25 09:05 shrimp Allergy Anaphylaxis Verified 05/11/25 09:05 Assessment & Plan Assessment & Plan (1) Bipolar disorder, now depressed: Qualifiers: Current episode severity: unspecified Qualified Code(s): F31.30 - Bipolar disorder, current episode depressed, mild or moderate severity, unspecified Status: Acute Code(s): F31.30 - Bipolar disorder, current episode depressed, mild or moderate severity, unspecified (2) PTSD (post-traumatic stress disorder): Status: Acute Code(s): F43.10 - Post-traumatic stress disorder, unspecified Plan Patient is a 49 year old male with hx of Bipolar d/o, PTSD, cocaine use d/o and alcohol use d/o who self presented to ER d/t suicidal ideation secondary to increased depression. Plan: CV 15 minute safety checks Continue home medications Start: Clonidine 0.1 mg PO bedtime Latuda 20mg PO daily@1700 DC Prozac Obtain collateral Encourage groups Discharge planning 05/14: Patient continues to report feeling anxious and depressed. He reports sleeping improved last evening. denies any side effects from medications; pt reports he is glad to be taken off Prozac. denies SI/HI/VH/AH. showered. pt reports he will try to attend groups today. Continue current tx plan. Patient educated on: diagnosis, medication risk/benefits and therapeutic strategies Reason for continued inpatient stay Substantial Risk for: med/psych decompensation Time Spent With Patient Time: Total time managing care of this patient today _20___ minutes.
[2025-05-14 13:03] VITALS: BP 124/73; PULSE 77
[2025-05-14 21:00] VITALS: BP 99/53; PULSE 75; RESP 16; TEMP 36.3; O2SAT 95
[2025-05-15 07:56] VITALS: BP 120/63; PULSE 61; RESP 16; TEMP 36.5; O2SAT 98
--- NOTE | 2025-05-15 10:44 | P.PNPSI_ITS ---
Subjective Subjective Date of Service: 05/15/25 Reason For Visit: SI Subjective Notes: Conditional Voluntary Interim History: Keeping to self. encouraged to leave room. pt reports feeling anxious; pt stated, I can't tell if I feel good or bad. I feel down . denies SI/HI/VH/AH. per nursing, slept 8 hours last night. Continue current tx plan. Medication Compliance: Yes Side effects from medications: No Attending Groups: No Mental Status Exam Mental Status Exam Narrative: Pt is alert and oriented; behavior is cooperative and calm; dressed in casual attire; mood is described as anxious and depressed ; eye contact appropriate; Speech is normal rate, volume and not pressured; thought process is organized; Thought content is on tx; denies SI/HI/VH/AH. Diagnostics Vital Signs (24Hr): Vital Signs - 24 hr 05/14/25 13:03 05/14/25 21:00 05/15/25 07:56 Temperature 97.4 F 97.7 F Pulse Rate 77 75 61 Respiratory Rate 16 16 Blood Pressure 124/73 99/53 L 120/63 Pulse Oximetry 95 98 Oxygen Delivery Method Room Air Room Air BMI result Body Mass Index 29.8 Labs 05/13/25 15:18 05/13/25 15:18 Labs: Laboratory Results - last 48 hr 05/13/25 15:18 WBC 8.7 RBC 5.32 Hgb 16.2 Hct 46.0 MCV 86.5 MCH 30.5 MCHC 35.2 RDW 11.9 Plt Count 281 MPV 9.1 L Immature Gran % (Auto) 0.2 Neut % (Auto) 41.9 L Lymph % (Auto) 47.2 H [place] % (Auto) 6.7 Eos % (Auto) 3.4 Baso % (Auto) 0.6 Lymph # (Auto) 4.1 [place] # (Auto) 0.6 Eos # (Auto) 0.3 Baso # (Auto) 0.1 Abs Immat Gran (auto) 0.02 Absolute Neuts (auto) 3.6 Absolute Nucleated RBC 0.000 Nucleated RBC % (auto) 0.0 Sodium 139 Potassium 4.4 Chloride 103 Carbon Dioxide 26 Anion Gap 14 BUN 17 H Creatinine 0.96 Estim Creat Clear Calc 110.6 Estimated GFR > 60 Random Glucose 124 H Calcium 10.1 D Total Bilirubin 0.4 Direct Bilirubin 0.1 AST 24 ALT 28 Alkaline Phosphatase 70 Ammonia 52 Total Protein 7.9 Albumin 4.5 Valproic Acid 55.8 Medications Medications Current Medications Acetaminophen (Acetaminophen 325 Mg Tablet) 650 mg PO Q6H PRN PRN Reason: Headache/Pain, Scale 1-10 Al Hydroxide/Mg Hydroxide (Magnesium Hydrox/Alum Hydrox 30 Ml Oral.Susp) 30 ml PO Q6H PRN PRN Reason: Heartburn/Nausea Clonidine HCl (Clonidine Hcl 0.1 Mg Tablet) 0.1 mg PO BEDTIME YOBANI; Protocol Last Admin: 05/14/25 21:04 Dose: 0.1 mg Divalproex Sodium (Divalproex Sodium 500 Mg Tablet.Dr) 1,000 mg PO BEDTIME YOBANI Last Admin: 05/14/25 21:03 Dose: 1,000 mg Hydroxyzine HCl (Hydroxyzine Hcl 50 Mg Tablet) 50 mg PO Q4H PRN PRN Reason: Anxiety Last Admin: 05/15/25 08:57 Dose: 50 mg Lorazepam (Lorazepam 1 Mg Tablet) 1 mg PO DAILY PRN PRN Reason: Anxiety Last Admin: 05/14/25 08:52 Dose: 1 mg Losartan Potassium (Losartan Potassium 25 Mg Tablet) 25 mg PO DAILY YOBANI; Protocol Last Admin: 05/15/25 08:26 Dose: 25 mg Lurasidone HCl (Lurasidone Hcl 20 Mg Tablet) 20 mg PO DAILY@1700 [facility] Last Admin: 05/14/25 17:10 Dose: 20 mg Magnesium Hydroxide (Milk Of Magnesia 30 Ml Oral.Susp) 30 ml PO DAILY PRN PRN Reason: Constipation Melatonin (Melatonin 3 Mg Tablet) 6 mg PO BEDTIME YOBANI Last Admin: 05/14/25 21:03 Dose: 6 mg Multivitamins/Vitamin C (Multivitamin Tablet) 1 tab PO DAILY YOBANI Last Admin: 05/15/25 08:28 Dose: 1 tab Nicotine Polacrilex (Nicotine Polacrilex 2 Mg Gum) 4 mg BUCCAL Q2H PRN PRN Reason: Nicotine Cravings Propranolol HCl (Propranolol Hcl 20 Mg Tablet) 20 mg PO BID PRN; Protocol PRN Reason: Anxiety Last Admin: 05/14/25 13:03 Dose: 20 mg Quetiapine Fumarate (Quetiapine Fumarate 50 Mg Tablet) 50 mg PO TID PRN PRN Reason: Anxiety Trazodone HCl (Trazodone Hcl 100 Mg Tablet) 200 mg PO BEDTIME YOBANI Last Admin: 05/14/25 21:03 Dose: 200 mg Vitamin D (Cholecalciferol (Vitamin D3) 25 Mcg Tablet) 50 mcg PO DAILY [facility] Last Admin: 05/15/25 08:27 Dose: 50 mcg Allergies Allergies Allergy/AdvReac Type Severity Reaction Status Date / Time duloxetine (From CYMBALTA) Allergy Unknown RASH Verified 05/11/25 09:05 shrimp Allergy Anaphylaxis Verified 05/11/25 09:05 Assessment & Plan Assessment & Plan (1) Bipolar disorder, now depressed: Qualifiers: Current episode severity: unspecified Qualified Code(s): F31.30 - Bipolar disorder, current episode depressed, mild or moderate severity, unspecified Status: Acute Code(s): F31.30 - Bipolar disorder, current episode depressed, mild or moderate severity, unspecified (2) PTSD (post-traumatic stress disorder): Status: Acute Code(s): F43.10 - Post-traumatic stress disorder, unspecified Plan Patient is a 49 year old male with hx of Bipolar d/o, PTSD, cocaine use d/o and alcohol use d/o who self presented to ER d/t suicidal ideation secondary to increased depression. Plan: CV 15 minute safety checks Continue home medications Start: Clonidine 0.1 mg PO bedtime Latuda 20mg PO daily@1700 DC Prozac Obtain collateral Encourage groups Discharge planning 05/14: Patient continues to report feeling anxious and depressed. He reports sleeping improved last evening. denies any side effects from medications; pt reports he is glad to be taken off Prozac. denies SI/HI/VH/AH. showered. pt reports he will try to attend groups today. Continue current tx plan. 05/15: Keeping to self. encouraged to leave room. pt reports feeling anxious; pt stated, I can't tell if I feel good or bad. I feel down . denies SI/HI/VH/AH. per nursing, slept 8 hours last night. Continue current tx plan. Patient educated on: diagnosis, medication risk/benefits and therapeutic strategies Reason for continued inpatient stay Substantial Risk for: med/psych decompensation Time Spent With Patient Time: Total time managing care of this patient today _20___ minutes.
[2025-05-15 20:00] VITALS: BP 128/78; PULSE 79; RESP 16; TEMP 36.9; O2SAT 98
[2025-05-15 20:32] VITALS: BP 128/78; PULSE 79
[2025-05-15 20:34] VITALS: BP 128/78
[2025-05-16 07:57] VITALS: BP 118/69; PULSE 60; RESP 16; TEMP 36.6; O2SAT 96
[2025-05-16 07:58] VITALS: BP 118/69; PULSE 60; RESP 16; TEMP 36.6; O2SAT 96
[2025-05-16 09:16] VITALS: BP 118/69
--- NOTE | 2025-05-16 15:45 | P.PNPSI_ITS ---
Subjective Subjective Date of Service: 05/16/25 Reason For Visit: SI Interim History: discussion held re medication side effects, prozac taper/withdrawal, use of atypical neuroleptics as antidepressants in bipolar depression, etc. pt agrees to increase latuda to 40 mg QHS as of tonight for Tx of depression. per staff, worried about stopping prozac and mental confusion (with MD pt identified onset of mental confusion to the start of prozac rather than its cessation). slept 8 hours. concerned he has 5-HT syndrome. Mental Status Exam Mental Status Exam Narrative: Pt is alert and oriented; behavior is cooperative and calm; dressed in casual attire; mood is described as anxious and depressed ; eye contact appropriate; Speech is normal rate, volume and not pressured; thought process is organized; Thought content is on tx; denies SI/HI/VH/AH. Diagnostics Vital Signs (24Hr): Vital Signs - 24 hr 05/15/25 20:00 05/15/25 20:32 05/15/25 20:34 Temperature 98.5 F Pulse Rate 79 79 Respiratory Rate 16 Blood Pressure 128/78 128/78 128/78 Pulse Oximetry 98 Oxygen Delivery Method Room Air 05/16/25 07:57 05/16/25 07:58 05/16/25 09:16 Temperature 97.8 F 97.8 F Pulse Rate 60 60 Respiratory Rate 16 16 Blood Pressure 118/69 118/69 118/69 Pulse Oximetry 96 96 Oxygen Delivery Method Room Air Room Air BMI result Body Mass Index 29.8 Labs 05/13/25 15:18 05/13/25 15:18 Medications Medications Current Medications Acetaminophen (Acetaminophen 325 Mg Tablet) 650 mg PO Q6H PRN PRN Reason: Headache/Pain, Scale 1-10 Al Hydroxide/Mg Hydroxide (Magnesium Hydrox/Alum Hydrox 30 Ml Oral.Susp) 30 ml PO Q6H PRN PRN Reason: Heartburn/Nausea Clonidine HCl (Clonidine Hcl 0.1 Mg Tablet) 0.1 mg PO BEDTIME [facility]; Protocol Last Admin: 05/15/25 20:34 Dose: 0.1 mg Divalproex Sodium (Divalproex Sodium 500 Mg Tablet.) 1,000 mg PO BEDTIME [facility] Last Admin: 05/15/25 20:34 Dose: 1,000 mg Hydroxyzine HCl (Hydroxyzine Hcl 50 Mg Tablet) 50 mg PO Q4H PRN PRN Reason: Anxiety Last Admin: 05/16/25 14:49 Dose: 50 mg Lorazepam (Lorazepam 1 Mg Tablet) 1 mg PO DAILY PRN PRN Reason: Anxiety Last Admin: 05/16/25 10:50 Dose: 1 mg Losartan Potassium (Losartan Potassium 25 Mg Tablet) 25 mg PO DAILY [facility]; Protocol Last Admin: 05/16/25 09:16 Dose: 25 mg Lurasidone HCl (Lurasidone Hcl 40 Mg Tablet) 40 mg PO DAILY@1700 [facility] Magnesium Hydroxide (Milk Of Magnesia 30 Ml Oral.Susp) 30 ml PO DAILY PRN PRN Reason: Constipation Melatonin (Melatonin 3 Mg Tablet) 6 mg PO BEDTIME [facility] Last Admin: 05/15/25 20:33 Dose: 6 mg Multivitamins/Vitamin C (Multivitamin Tablet) 1 tab PO DAILY [facility] Last Admin: 05/16/25 09:17 Dose: 1 tab Nicotine Polacrilex (Nicotine Polacrilex 2 Mg Gum) 4 mg BUCCAL Q2H PRN PRN Reason: Nicotine Cravings Propranolol HCl (Propranolol Hcl 20 Mg Tablet) 20 mg PO BID PRN; Protocol PRN Reason: Anxiety Last Admin: 05/15/25 20:32 Dose: 20 mg Quetiapine Fumarate (Quetiapine Fumarate 50 Mg Tablet) 50 mg PO TID PRN PRN Reason: Anxiety Trazodone HCl (Trazodone Hcl 100 Mg Tablet) 200 mg PO BEDTIME [facility] Last Admin: 05/15/25 20:35 Dose: 200 mg Vitamin D (Cholecalciferol (Vitamin D3) 25 Mcg Tablet) 50 mcg PO DAILY [facility] Last Admin: 05/16/25 09:16 Dose: 50 mcg Allergies Allergies Allergy/AdvReac Type Severity Reaction Status Date / Time duloxetine (From CYMBALTA) Allergy Unknown RASH Verified 05/11/25 09:05 shrimp Allergy Anaphylaxis Verified 05/11/25 09:05 Assessment & Plan Assessment & Plan (1) Bipolar disorder, now depressed: Qualifiers: Current episode severity: unspecified Qualified Code(s): F31.30 - Bipolar disorder, current episode depressed, mild or moderate severity, unspecified Status: Acute Code(s): F31.30 - Bipolar disorder, current episode depressed, mild or moderate severity, unspecified (2) PTSD (post-traumatic stress disorder): Status: Acute Code(s): F43.10 - Post-traumatic stress disorder, unspecified Plan Patient is a 49 year old male with hx of Bipolar d/o, PTSD, cocaine use d/o and alcohol use d/o who self presented to ER d/t suicidal ideation secondary to increased depression. Plan: CV 15 minute safety checks Continue home medications Start: Clonidine 0.1 mg PO bedtime Latuda 20mg PO daily@1700 DC Prozac Obtain collateral Encourage groups Discharge planning 05/14: Patient continues to report feeling anxious and depressed. He reports sleeping improved last evening. denies any side effects from medications; pt reports he is glad to be taken off Prozac. denies SI/HI/VH/AH. showered. pt reports he will try to attend groups today. Continue current tx plan. 05/15: Keeping to self. encouraged to leave room. pt reports feeling anxious; pt stated, I can't tell if I feel good or bad. I feel down . denies SI/HI/VH/AH. per nursing, slept 8 hours last night. Continue current tx plan. 05/16: anxious, depressed. slept 8 hours. agrees to increase latuda to 40 mg daily for depression. otherwise continue current mgmt. Reason for continued inpatient stay Substantial Risk for: inability to function Time Spent With Patient Time: Total time managing care of this patient today __35__ minutes.
[2025-05-16 20:00] VITALS: BP 139/82; PULSE 83; RESP 18; TEMP 37.2; O2SAT 97
[2025-05-16 20:06] VITALS: BP 139/82
[2025-05-16 20:08] VITALS: BP 139/82; PULSE 83
[2025-05-17 07:58] VITALS: BP 130/73; PULSE 55; RESP 16; TEMP 37.1; O2SAT 99
[2025-05-17 08:54] VITALS: BP 130/73
[2025-05-17 12:45] VITALS: BP 138/69; PULSE 85
--- NOTE | 2025-05-17 16:08 | HO.PSYCHPN ---
Subjective Subjective Date of Service: 05/17/25 Reason For Visit: SI Interim History: c/o nightmares. agreeable to start prazosin. R/B discussed, including hypotension. otherwise feeling reasonably well. per staff, taking meds. quiet. polite. dep/anx 8. slept 8 hours. Mental Status Exam Mental Status Exam Narrative: Pt is alert and oriented; behavior is cooperative and calm; dressed in casual attire; mood is improved; eye contact appropriate; Speech is normal rate, volume and not pressured; thought process is organized; Thought content is on tx; denies SI/HI/VH/AH. Diagnostics Vital Signs (24Hr): Vital Signs - 24 hr 05/16/25 20:00 05/16/25 20:06 05/16/25 20:08 Temperature 98.9 F Pulse Rate 83 83 Respiratory Rate 18 Blood Pressure 139/82 139/82 139/82 Pulse Oximetry 97 Oxygen Delivery Method Room Air 05/17/25 07:58 05/17/25 08:54 05/17/25 12:45 Temperature 98.7 F Pulse Rate 55 85 Respiratory Rate 16 Blood Pressure 130/73 130/73 138/69 Pulse Oximetry 99 Oxygen Delivery Method Room Air BMI result Body Mass Index 29.8 Labs 05/13/25 15:18 05/13/25 15:18 Medications Medications Current Medications Acetaminophen (Acetaminophen 325 Mg Tablet) 650 mg PO Q6H PRN PRN Reason: Headache/Pain, Scale 1-10 Al Hydroxide/Mg Hydroxide (Magnesium Hydrox/Alum Hydrox 30 Ml Oral.Susp) 30 ml PO Q6H PRN PRN Reason: Heartburn/Nausea Clonidine HCl (Clonidine Hcl 0.1 Mg Tablet) 0.1 mg PO BEDTIME [facility]; Protocol Last Admin: 05/16/25 20:06 Dose: 0.1 mg Divalproex Sodium (Divalproex Sodium 500 Mg Tablet.Dr) 1,000 mg PO BEDTIME [facility] Last Admin: 05/16/25 20:08 Dose: 1,000 mg Hydroxyzine HCl (Hydroxyzine Hcl 50 Mg Tablet) 50 mg PO Q4H PRN PRN Reason: Anxiety Last Admin: 05/16/25 14:49 Dose: 50 mg Lorazepam (Lorazepam 1 Mg Tablet) 1 mg PO DAILY PRN PRN Reason: Anxiety Last Admin: 05/17/25 08:54 Dose: 1 mg Losartan Potassium (Losartan Potassium 25 Mg Tablet) 25 mg PO DAILY [facility]; Protocol Last Admin: 05/17/25 08:54 Dose: 25 mg Lurasidone HCl (Lurasidone Hcl 40 Mg Tablet) 40 mg PO DAILY@1700 [facility] Last Admin: 05/16/25 17:21 Dose: 40 mg Magnesium Hydroxide (Milk Of Magnesia 30 Ml Oral.Susp) 30 ml PO DAILY PRN PRN Reason: Constipation Melatonin (Melatonin 3 Mg Tablet) 6 mg PO BEDTIME [facility] Last Admin: 05/16/25 20:07 Dose: 6 mg Multivitamins/Vitamin C (Multivitamin Tablet) 1 tab PO DAILY [facility] Last Admin: 05/17/25 08:54 Dose: 1 tab Nicotine Polacrilex (Nicotine Polacrilex 2 Mg Gum) 4 mg BUCCAL Q2H PRN PRN Reason: Nicotine Cravings Prazosin HCl (Prazosin Hcl 1 Mg Capsule) 1 mg PO BEDTIME [facility]; Protocol Propranolol HCl (Propranolol Hcl 20 Mg Tablet) 20 mg PO BID PRN; Protocol PRN Reason: Anxiety Last Admin: 05/17/25 12:45 Dose: 20 mg Quetiapine Fumarate (Quetiapine Fumarate 50 Mg Tablet) 50 mg PO TID PRN PRN Reason: Anxiety Trazodone HCl (Trazodone Hcl 100 Mg Tablet) 200 mg PO BEDTIME [facility] Last Admin: 05/16/25 20:06 Dose: 200 mg Vitamin D (Cholecalciferol (Vitamin D3) 25 Mcg Tablet) 50 mcg PO DAILY [facility] Last Admin: 05/17/25 08:54 Dose: 50 mcg Allergies Allergies Allergy/AdvReac Type Severity Reaction Status Date / Time duloxetine (From CYMBALTA) Allergy Unknown RASH Verified 05/11/25 09:05 shrimp Allergy Anaphylaxis Verified 05/11/25 09:05 Assessment & Plan Assessment & Plan (1) Bipolar disorder, now depressed: Qualifiers: Current episode severity: unspecified Qualified Code(s): F31.30 - Bipolar disorder, current episode depressed, mild or moderate severity, unspecified Status: Acute Code(s): F31.30 - Bipolar disorder, current episode depressed, mild or moderate severity, unspecified (2) PTSD (post-traumatic stress disorder): Status: Acute Code(s): F43.10 - Post-traumatic stress disorder, unspecified Plan Patient is a 49 year old male with hx of Bipolar d/o, PTSD, cocaine use d/o and alcohol use d/o who self presented to ER d/t suicidal ideation secondary to increased depression. Plan: CV 15 minute safety checks Continue home medications Start: Clonidine 0.1 mg PO bedtime Latuda 20mg PO daily@1700 DC Prozac Obtain collateral Encourage groups Discharge planning 05/14: Patient continues to report feeling anxious and depressed. He reports sleeping improved last evening. denies any side effects from medications; pt reports he is glad to be taken off Prozac. denies SI/HI/VH/AH. showered. pt reports he will try to attend groups today. Continue current tx plan. 05/15: Keeping to self. encouraged to leave room. pt reports feeling anxious; pt stated, I can't tell if I feel good or bad. I feel down . denies SI/HI/VH/AH. per nursing, slept 8 hours last night. Continue current tx plan. 05/16: anxious, depressed. slept 8 hours. agrees to increase latuda to 40 mg daily for depression. otherwise continue current mgmt. 05/17: start prazosin 1 mg QHS for nightmares, titrate as indicated. otherwise continue current mgmt. Reason for continued inpatient stay Substantial Risk for: inability to function Time Spent With Patient Time: Total time managing care of this patient today __25__ minutes.
[2025-05-17 20:45] VITALS: BP 131/71; PULSE 68; RESP 16; TEMP 37.3; O2SAT 97
[2025-05-18 07:45] VITALS: BP 115/63; PULSE 58; RESP 14; TEMP 36.4; O2SAT 97
[2025-05-18 08:57] VITALS: BP 116/60
--- NOTE | 2025-05-18 17:14 | P.PNPSI_ITS ---
Subjective Subjective Date of Service: 05/18/25 Reason For Visit: SI Interim History: Feels Prazosin didn't help and he had nightmares again last night. Taking medications and feels very slightly better . Denies active SI. Denies hallucinations. [place] anxious after he took Latuda first time but not yesterday. . Review of Systems Review of Systems Yes all other systems are reviewed and are negative Mental Status Exam Mental Status Exam Narrative: Pt is alert and oriented; behavior is cooperative and calm; dressed in casual attire; mood is improved; eye contact appropriate; Speech is normal rate, volume and not pressured; thought process is organized; Thought content is on tx; denies SI/HI/VH/AH. Diagnostics Vital Signs (24Hr): Vital Signs - 24 hr 05/17/25 20:45 05/18/25 07:45 05/18/25 08:57 Temperature 99.1 F 97.6 F Pulse Rate 68 58 Respiratory Rate 16 14 Blood Pressure 131/71 115/63 116/60 Pulse Oximetry 97 97 Oxygen Delivery Method Room Air Room Air BMI result Body Mass Index 29.8 Labs 05/13/25 15:18 05/13/25 15:18 Medications Medications Current Medications Acetaminophen (Acetaminophen 325 Mg Tablet) 650 mg PO Q6H PRN PRN Reason: Headache/Pain, Scale 1-10 Last Admin: 05/17/25 20:50 Dose: 650 mg Al Hydroxide/Mg Hydroxide (Magnesium Hydrox/Alum Hydrox 30 Ml Oral.Susp) 30 ml PO Q6H PRN PRN Reason: Heartburn/Nausea Clonidine HCl (Clonidine Hcl 0.1 Mg Tablet) 0.1 mg PO BEDTIME [facility]; Protocol Last Admin: 05/17/25 20:51 Dose: 0.1 mg Divalproex Sodium (Divalproex Sodium 500 Mg Tablet.Dr) 1,000 mg PO BEDTIME [facility] Last Admin: 05/17/25 20:51 Dose: 1,000 mg Hydroxyzine HCl (Hydroxyzine Hcl 50 Mg Tablet) 50 mg PO Q4H PRN PRN Reason: Anxiety Last Admin: 05/18/25 16:35 Dose: 50 mg Lorazepam (Lorazepam 1 Mg Tablet) 1 mg PO DAILY PRN PRN Reason: Anxiety Last Admin: 05/18/25 12:01 Dose: 1 mg Losartan Potassium (Losartan Potassium 25 Mg Tablet) 25 mg PO DAILY [facility]; Protocol Last Admin: 05/18/25 08:57 Dose: 25 mg Lurasidone HCl (Lurasidone Hcl 40 Mg Tablet) 40 mg PO DAILY@1700 [facility] Last Admin: 05/18/25 17:03 Dose: 40 mg Magnesium Hydroxide (Milk Of Magnesia 30 Ml Oral.Susp) 30 ml PO DAILY PRN PRN Reason: Constipation Melatonin (Melatonin 3 Mg Tablet) 6 mg PO BEDTIME [facility] Last Admin: 05/17/25 20:52 Dose: 6 mg Multivitamins/Vitamin C (Multivitamin Tablet) 1 tab PO DAILY [facility] Last Admin: 05/18/25 08:57 Dose: 1 tab Naproxen (Naproxen 250 Mg Tablet) 250 mg PO BID PRN PRN Reason: Pain, Moderate(Pain Scale 4-6) Nicotine Polacrilex (Nicotine Polacrilex 2 Mg Gum) 4 mg BUCCAL Q2H PRN PRN Reason: Nicotine Cravings Prazosin HCl (Prazosin Hcl 1 Mg Capsule) 1 mg PO BEDTIME [facility]; Protocol Last Admin: 05/17/25 20:53 Dose: Not Given Propranolol HCl (Propranolol Hcl 20 Mg Tablet) 20 mg PO BID PRN; Protocol PRN Reason: Anxiety Last Admin: 05/17/25 12:45 Dose: 20 mg Quetiapine Fumarate (Quetiapine Fumarate 50 Mg Tablet) 50 mg PO TID PRN PRN Reason: Anxiety Trazodone HCl (Trazodone Hcl 100 Mg Tablet) 200 mg PO BEDTIME [facility] Last Admin: 05/17/25 20:51 Dose: 200 mg Vitamin D (Cholecalciferol (Vitamin D3) 25 Mcg Tablet) 50 mcg PO DAILY [facility] Last Admin: 05/18/25 08:57 Dose: 50 mcg Allergies Allergies Allergy/AdvReac Type Severity Reaction Status Date / Time duloxetine (From CYMBALTA) Allergy Unknown RASH Verified 05/11/25 09:05 shrimp Allergy Anaphylaxis Verified 05/11/25 09:05 Assessment & Plan Assessment & Plan (1) Bipolar disorder, now depressed: Qualifiers: Current episode severity: unspecified Qualified Code(s): F31.30 - Bipolar disorder, current episode depressed, mild or moderate severity, unspecified Status: Acute Code(s): F31.30 - Bipolar disorder, current episode depressed, mild or moderate severity, unspecified (2) PTSD (post-traumatic stress disorder): Status: Acute Code(s): F43.10 - Post-traumatic stress disorder, unspecified Plan Patient is a 49 year old male with hx of Bipolar d/o, PTSD, cocaine use d/o and alcohol use d/o who self presented to ER d/t suicidal ideation secondary to increased depression. Plan: CV 15 minute safety checks Continue home medications Start: Clonidine 0.1 mg PO bedtime Latuda 20mg PO daily@1700 DC Prozac Obtain collateral Encourage groups Discharge planning 05/14: Patient continues to report feeling anxious and depressed. He reports sleeping improved last evening. denies any side effects from medications; pt reports he is glad to be taken off Prozac. denies SI/HI/VH/AH. showered. pt reports he will try to attend groups today. Continue current tx plan. 05/15: Keeping to self. encouraged to leave room. pt reports feeling anxious; pt stated, I can't tell if I feel good or bad. I feel down . denies SI/HI/VH/AH. per nursing, slept 8 hours last night. Continue current tx plan. 05/16: anxious, depressed. slept 8 hours. agrees to increase latuda to 40 mg daily for depression. otherwise continue current mgmt. 05/17: start prazosin 1 mg QHS for nightmares, titrate as indicated. otherwise continue current mgmt. 05/18: DC Prazosin. Otherwise continue current management and treatment plan. Reason for continued inpatient stay Substantial Risk for: harm to self and rapid decompensation Time Spent With Patient Time: Total time managing care of this patient today ____ minutes.
[2025-05-18 20:00] VITALS: BP 140/79; PULSE 89; RESP 16; TEMP 36.6; O2SAT 96
[2025-05-18 20:01] VITALS: BP 140/79
[2025-05-19 08:00] VITALS: BP 124/68; PULSE 59; RESP 18; TEMP 2.5; TEMP 36.5; O2SAT 96
[2025-05-19 09:18] VITALS: BP 130/70
--- NOTE | 2025-05-19 09:48 | HO.PSYCHPN ---
Subjective Subjective Date of Service: 05/19/25 Reason For Visit: SI Interim History: Reports little but noticeable improvement. He is still complaining of insomnia and nightmares. Discussed Remeron as an option for depression/anxiety/insomnia and patient willing to try it. Isolates in his room most of the day. Denies active SI> Review of Systems Review of Systems Yes all other systems are reviewed and are negative Mental Status Exam Mental Status Exam Narrative: Pt is alert and oriented; behavior is cooperative and calm; dressed in casual attire; mood is improved; eye contact appropriate; Speech is normal rate, volume and not pressured; thought process is organized; Thought content is on tx; denies SI/HI/VH/AH. Diagnostics Vital Signs (24Hr): Vital Signs - 24 hr 05/18/25 20:00 05/18/25 20:01 05/19/25 08:00 Temperature 98 F 36.5 F L Pulse Rate 89 59 Respiratory Rate 16 18 Blood Pressure 140/79 H 140/79 H 124/68 Pulse Oximetry 96 96 Oxygen Delivery Method Room Air Room Air 05/19/25 09:18 Temperature Pulse Rate Respiratory Rate Blood Pressure 130/70 Pulse Oximetry Oxygen Delivery Method BMI result Body Mass Index 29.8 Labs 05/13/25 15:18 05/13/25 15:18 Medications Medications Current Medications Acetaminophen (Acetaminophen 325 Mg Tablet) 650 mg PO Q6H PRN PRN Reason: Headache/Pain, Scale 1-10 Last Admin: 05/17/25 20:50 Dose: 650 mg Al Hydroxide/Mg Hydroxide (Magnesium Hydrox/Alum Hydrox 30 Ml Oral.Susp) 30 ml PO Q6H PRN PRN Reason: Heartburn/Nausea Clonidine HCl (Clonidine Hcl 0.1 Mg Tablet) 0.1 mg PO BEDTIME [facility]; Protocol Last Admin: 05/18/25 20:01 Dose: 0.1 mg Divalproex Sodium (Divalproex Sodium 500 Mg Tablet.Dr) 1,000 mg PO BEDTIME [facility] Last Admin: 05/18/25 20:01 Dose: 1,000 mg Hydroxyzine HCl (Hydroxyzine Hcl 50 Mg Tablet) 50 mg PO Q4H PRN PRN Reason: Anxiety Last Admin: 05/18/25 16:35 Dose: 50 mg Lorazepam (Lorazepam 1 Mg Tablet) 1 mg PO DAILY PRN PRN Reason: Anxiety Last Admin: 05/19/25 09:21 Dose: 1 mg Losartan Potassium (Losartan Potassium 25 Mg Tablet) 25 mg PO DAILY [facility]; Protocol Last Admin: 05/19/25 09:18 Dose: 25 mg Lurasidone HCl (Lurasidone Hcl 40 Mg Tablet) 40 mg PO DAILY@1700 [facility] Last Admin: 05/18/25 17:03 Dose: 40 mg Magnesium Hydroxide (Milk Of Magnesia 30 Ml Oral.Susp) 30 ml PO DAILY PRN PRN Reason: Constipation Melatonin (Melatonin 3 Mg Tablet) 6 mg PO BEDTIME [facility] Last Admin: 05/18/25 20:01 Dose: 6 mg Multivitamins/Vitamin C (Multivitamin Tablet) 1 tab PO DAILY [facility] Last Admin: 05/19/25 09:19 Dose: 1 tab Naproxen (Naproxen 250 Mg Tablet) 250 mg PO BID PRN PRN Reason: Pain, Moderate(Pain Scale 4-6) Last Admin: 05/18/25 20:01 Dose: 250 mg Nicotine Polacrilex (Nicotine Polacrilex 2 Mg Gum) 4 mg BUCCAL Q2H PRN PRN Reason: Nicotine Cravings Prazosin HCl (Prazosin Hcl 1 Mg Capsule) 1 mg PO BEDTIME [facility]; Protocol On Hold: 05/18/25 17:35 Last Admin: 05/17/25 20:53 Dose: Not Given Propranolol HCl (Propranolol Hcl 20 Mg Tablet) 20 mg PO BID PRN; Protocol PRN Reason: Anxiety Last Admin: 05/17/25 12:45 Dose: 20 mg Quetiapine Fumarate (Quetiapine Fumarate 50 Mg Tablet) 50 mg PO TID PRN PRN Reason: Anxiety Trazodone HCl (Trazodone Hcl 100 Mg Tablet) 200 mg PO BEDTIME [facility] Last Admin: 05/18/25 20:00 Dose: 200 mg Vitamin D (Cholecalciferol (Vitamin D3) 25 Mcg Tablet) 50 mcg PO DAILY [facility] Last Admin: 05/19/25 09:18 Dose: 50 mcg Allergies Allergies Allergy/AdvReac Type Severity Reaction Status Date / Time duloxetine (From CYMBALTA) Allergy Unknown RASH Verified 05/11/25 09:05 shrimp Allergy Anaphylaxis Verified 05/11/25 09:05 Assessment & Plan Assessment & Plan (1) Bipolar disorder, now depressed: Qualifiers: Current episode severity: unspecified Qualified Code(s): F31.30 - Bipolar disorder, current episode depressed, mild or moderate severity, unspecified Status: Acute Code(s): F31.30 - Bipolar disorder, current episode depressed, mild or moderate severity, unspecified (2) PTSD (post-traumatic stress disorder): Status: Acute Code(s): F43.10 - Post-traumatic stress disorder, unspecified Plan Patient is a 49 year old male with hx of Bipolar d/o, PTSD, cocaine use d/o and alcohol use d/o who self presented to ER d/t suicidal ideation secondary to increased depression. Plan: CV 15 minute safety checks Continue home medications Start: Clonidine 0.1 mg PO bedtime Latuda 20mg PO daily@1700 DC Prozac Obtain collateral Encourage groups Discharge planning 05/14: Patient continues to report feeling anxious and depressed. He reports sleeping improved last evening. denies any side effects from medications; pt reports he is glad to be taken off Prozac. denies SI/HI/VH/AH. showered. pt reports he will try to attend groups today. Continue current tx plan. 05/15: Keeping to self. encouraged to leave room. pt reports feeling anxious; pt stated, I can't tell if I feel good or bad. I feel down . denies SI/HI/VH/AH. per nursing, slept 8 hours last night. Continue current tx plan. 05/16: anxious, depressed. slept 8 hours. agrees to increase latuda to 40 mg daily for depression. otherwise continue current mgmt. 05/17: start prazosin 1 mg QHS for nightmares, titrate as indicated. otherwise continue current mgmt. 05/18: DC Prazosin. Otherwise continue current management and treatment plan. 05/19: Start Remeron 15 mg HS. Order entered after 9PM and may not have gotten a dose tonight. Reason for continued inpatient stay Substantial Risk for: harm to self and rapid decompensation Time Spent With Patient Time: Total time managing care of this patient today ____ minutes.
[2025-05-19 14:17] VITALS: BP 138/69; PULSE 80
[2025-05-19 20:25] VITALS: BP 140/79; PULSE 77; RESP 16; TEMP 36.4; O2SAT 97
[2025-05-19 20:30] VITALS: BP 140/79
[2025-05-20 07:15] VITALS: BP 123/67; PULSE 57; RESP 16; TEMP 36.9; O2SAT 95
[2025-05-20 08:43] VITALS: BP 123/67
--- NOTE | 2025-05-20 09:31 | HO.PSYCHPN ---
Subjective Subjective Date of Service: 05/20/25 Reason For Visit: SI Subjective Notes: Conditional Voluntary Interim History: Keeping to self. Pt reports feeling not bad today; anxious about discharging home. denies SI/HI/VH/AH. per nursing, slept 8 hours last night. Plan to discharge home if continues to improve. Valproic acid labs ordered for today; awaiting results. Continue current tx plan. Medication Compliance: Yes Side effects from medications: No Attending Groups: No Mental Status Exam Mental Status Exam Narrative: Pt is alert and oriented; behavior is cooperative and calm; dressed in casual attire; mood is described as not bad ; eye contact appropriate; Speech is normal rate, volume and not pressured; thought process is organized; Thought content is on tx; denies SI/HI/VH/AH. Diagnostics Vital Signs (24Hr): Vital Signs - 24 hr 05/19/25 14:17 05/19/25 20:25 05/19/25 20:30 Temperature 97.5 F Pulse Rate 80 77 Respiratory Rate 16 Blood Pressure 138/69 140/79 H 140/79 H Pulse Oximetry 97 Oxygen Delivery Method Room Air 05/20/25 07:15 05/20/25 08:43 Temperature 98.4 F Pulse Rate 57 Respiratory Rate 16 Blood Pressure 123/67 123/67 Pulse Oximetry 95 Oxygen Delivery Method Room Air BMI result Body Mass Index 29.8 Labs 05/13/25 15:18 05/13/25 15:18 Medications Medications Current Medications Acetaminophen (Acetaminophen 325 Mg Tablet) 650 mg PO Q6H PRN PRN Reason: Headache/Pain, Scale 1-10 Last Admin: 05/17/25 20:50 Dose: 650 mg Al Hydroxide/Mg Hydroxide (Magnesium Hydrox/Alum Hydrox 30 Ml Oral.Susp) 30 ml PO Q6H PRN PRN Reason: Heartburn/Nausea Clonidine HCl (Clonidine Hcl 0.1 Mg Tablet) 0.1 mg PO BEDTIME YOBANI; Protocol Last Admin: 05/19/25 20:30 Dose: 0.1 mg Divalproex Sodium (Divalproex Sodium 500 Mg Tablet.Dr) 1,000 mg PO BEDTIME YOBANI Last Admin: 05/19/25 20:25 Dose: 1,000 mg Hydroxyzine HCl (Hydroxyzine Hcl 50 Mg Tablet) 50 mg PO Q4H PRN PRN Reason: Anxiety Last Admin: 05/19/25 20:25 Dose: 50 mg Lorazepam (Lorazepam 1 Mg Tablet) 1 mg PO DAILY PRN PRN Reason: Anxiety Last Admin: 05/20/25 08:53 Dose: 1 mg Losartan Potassium (Losartan Potassium 25 Mg Tablet) 25 mg PO DAILY YOBANI; Protocol Last Admin: 05/20/25 08:43 Dose: 25 mg Lurasidone HCl (Lurasidone Hcl 40 Mg Tablet) 40 mg PO DAILY@1700 YOBANI Last Admin: 05/19/25 18:00 Dose: 40 mg Magnesium Hydroxide (Milk Of Magnesia 30 Ml Oral.Susp) 30 ml PO DAILY PRN PRN Reason: Constipation Melatonin (Melatonin 3 Mg Tablet) 6 mg PO BEDTIME YOBANI Last Admin: 05/19/25 20:30 Dose: 6 mg Mirtazapine (Mirtazapine 15 Mg Tablet) 15 mg PO BEDTIME YOBANI Last Admin: 05/20/25 01:54 Dose: Not Given Multivitamins/Vitamin C (Multivitamin Tablet) 1 tab PO DAILY YOBANI Last Admin: 05/20/25 08:44 Dose: 1 tab Naproxen (Naproxen 250 Mg Tablet) 250 mg PO BID PRN PRN Reason: Pain, Moderate(Pain Scale 4-6) Last Admin: 05/19/25 20:29 Dose: 250 mg Nicotine Polacrilex (Nicotine Polacrilex 2 Mg Gum) 4 mg BUCCAL Q2H PRN PRN Reason: Nicotine Cravings Prazosin HCl (Prazosin Hcl 1 Mg Capsule) 1 mg PO BEDTIME YOBANI; Protocol On Hold: 05/18/25 17:35 Last Admin: 05/17/25 20:53 Dose: Not Given Propranolol HCl (Propranolol Hcl 20 Mg Tablet) 20 mg PO BID PRN; Protocol PRN Reason: Anxiety Last Admin: 05/19/25 14:17 Dose: 20 mg Quetiapine Fumarate (Quetiapine Fumarate 50 Mg Tablet) 50 mg PO TID PRN PRN Reason: Anxiety Trazodone HCl (Trazodone Hcl 100 Mg Tablet) 200 mg PO BEDTIME YOBANI Last Admin: 05/19/25 20:30 Dose: 200 mg Vitamin D (Cholecalciferol (Vitamin D3) 25 Mcg Tablet) 50 mcg PO DAILY YOBANI Last Admin: 05/20/25 08:44 Dose: 50 mcg Allergies Allergies Allergy/AdvReac Type Severity Reaction Status Date / Time duloxetine (From CYMBALTA) Allergy Unknown RASH Verified 05/11/25 09:05 shrimp Allergy Anaphylaxis Verified 05/11/25 09:05 Assessment & Plan Assessment & Plan (1) Bipolar disorder, now depressed: Qualifiers: Current episode severity: unspecified Qualified Code(s): F31.30 - Bipolar disorder, current episode depressed, mild or moderate severity, unspecified Status: Acute Code(s): F31.30 - Bipolar disorder, current episode depressed, mild or moderate severity, unspecified (2) PTSD (post-traumatic stress disorder): Status: Acute Code(s): F43.10 - Post-traumatic stress disorder, unspecified Plan Patient is a 49 year old male with hx of Bipolar d/o, PTSD, cocaine use d/o and alcohol use d/o who self presented to ER d/t suicidal ideation secondary to increased depression. Plan: CV 15 minute safety checks Continue home medications Start: Clonidine 0.1 mg PO bedtime Latuda 20mg PO daily@1700 DC Prozac Obtain collateral Encourage groups Discharge planning 05/14: Patient continues to report feeling anxious and depressed. He reports sleeping improved last evening. denies any side effects from medications; pt reports he is glad to be taken off Prozac. denies SI/HI/VH/AH. showered. pt reports he will try to attend groups today. Continue current tx plan. 05/15: Keeping to self. encouraged to leave room. pt reports feeling anxious; pt stated, I can't tell if I feel good or bad. I feel down . denies SI/HI/VH/AH. per nursing, slept 8 hours last night. Continue current tx plan. 05/16: anxious, depressed. slept 8 hours. agrees to increase latuda to 40 mg daily for depression. otherwise continue current mgmt. 05/17: start prazosin 1 mg QHS for nightmares, titrate as indicated. otherwise continue current mgmt. 05/18: DC Prazosin. Otherwise continue current management and treatment plan. 05/19: Start Remeron 15 mg HS. Order entered after 9PM and may not have gotten a dose tonight. 05/20: Keeping to self. Pt reports feeling not bad today; anxious about discharging home. denies SI/HI/VH/AH. per nursing, slept 8 hours last night. Plan to discharge home if continues to improve. Valproic acid labs ordered for today; awaiting results. Continue current tx plan. Patient educated on: diagnosis, medication risk/benefits and therapeutic strategies Reason for continued inpatient stay Substantial Risk for: med/psych decompensation Time Spent With Patient Time: Total time managing care of this patient today _20___ minutes.
[2025-05-20 20:00] VITALS: BP 150/94; PULSE 84; RESP 16; TEMP 36.8; O2SAT 98
[2025-05-21 08:00] VITALS: BP 118/75; PULSE 57; RESP 16; TEMP 36.6; O2SAT 97
[2025-05-21 08:07] LABS: Ammonia 42 umol/L (13-55)
[2025-05-21 08:13] LABS: Alanine Aminotransferase 29 U/L (0-40); Albumin Level 3.8 g/dL (3.5-5.0); Alkaline Phosphatase 64 U/L (39-117); Aspartate Amino Transferase 25 U/L (5-37); Total Protein 6.5 g/dL (6.5-8.0)
[2025-05-21 09:37] VITALS: BP 122/68
[2025-05-21 12:20] VITALS: BP 124/92; PULSE 91
--- NOTE | 2025-05-21 13:38 | HO.PSYCHPN ---
Subjective Subjective Date of Service: 05/21/25 Reason For Visit: SI Subjective Notes: Conditional Voluntary Interim History: Pt reports feeling better but still depressed ; continues anxious about discharging home. Focused on medications. Encouraged to utilize coping skills and PRN medications. denies SI/HI/VH/AH. per nursing, slept 8 hours last night. Valproic acid level 55.8 on 05/21/25. Continue current tx plan. Medication Compliance: Yes Side effects from medications: No Attending Groups: No Mental Status Exam Mental Status Exam Narrative: Pt is alert and oriented; behavior is cooperative and calm; dressed in casual attire; mood is described as better but still depressed ; eye contact appropriate; Speech is normal rate, volume and not pressured; thought process is organized; Thought content is on tx; denies SI/HI/VH/AH. Diagnostics Vital Signs (24Hr): Vital Signs - 24 hr 05/20/25 20:00 05/21/25 08:00 05/21/25 09:37 Temperature 98.3 F 97.8 F Pulse Rate 84 57 Respiratory Rate 16 16 Blood Pressure 150/94 H 118/75 122/68 Pulse Oximetry 98 97 Oxygen Delivery Method Room Air Room Air 05/21/25 12:20 Temperature Pulse Rate 91 Respiratory Rate Blood Pressure 124/92 H Pulse Oximetry Oxygen Delivery Method BMI result Body Mass Index 29.8 Labs 05/13/25 15:18 05/13/25 15:18 Labs: Laboratory Results - last 48 hr 05/21/25 07:45 Total Bilirubin 0.4 Direct Bilirubin 0.2 AST 25 ALT 29 Alkaline Phosphatase 64 Ammonia 42 Total Protein 6.5 Albumin 3.8 Valproic Acid 55.8 Medications Medications Current Medications Acetaminophen (Acetaminophen 325 Mg Tablet) 650 mg PO Q6H PRN PRN Reason: Headache/Pain, Scale 1-10 Last Admin: 05/17/25 20:50 Dose: 650 mg Al Hydroxide/Mg Hydroxide (Magnesium Hydrox/Alum Hydrox 30 Ml Oral.Susp) 30 ml PO Q6H PRN PRN Reason: Heartburn/Nausea Clonidine HCl (Clonidine Hcl 0.1 Mg Tablet) 0.1 mg PO BEDTIME YOBANI; Protocol Last Admin: 05/20/25 20:37 Dose: 0.1 mg Divalproex Sodium (Divalproex Sodium 500 Mg Tablet.) 1,000 mg PO BEDTIME YOBANI Last Admin: 05/20/25 20:35 Dose: 1,000 mg Hydroxyzine HCl (Hydroxyzine Hcl 50 Mg Tablet) 50 mg PO Q4H PRN PRN Reason: Anxiety Last Admin: 05/20/25 14:29 Dose: 50 mg Lorazepam (Lorazepam 1 Mg Tablet) 1 mg PO DAILY PRN PRN Reason: Anxiety Last Admin: 05/21/25 09:37 Dose: 1 mg Losartan Potassium (Losartan Potassium 25 Mg Tablet) 25 mg PO DAILY YOBANI; Protocol Last Admin: 05/21/25 09:37 Dose: 25 mg Lurasidone HCl (Lurasidone Hcl 40 Mg Tablet) 40 mg PO DAILY@1700 YOBANI Last Admin: 05/20/25 17:05 Dose: 40 mg Magnesium Hydroxide (Milk Of Magnesia 30 Ml Oral.Susp) 30 ml PO DAILY PRN PRN Reason: Constipation Melatonin (Melatonin 3 Mg Tablet) 6 mg PO BEDTIME YOBANI Last Admin: 05/20/25 20:36 Dose: 6 mg Mirtazapine (Mirtazapine 15 Mg Tablet) 15 mg PO BEDTIME YOBANI Last Admin: 05/20/25 20:35 Dose: 15 mg Multivitamins/Vitamin C (Multivitamin Tablet) 1 tab PO DAILY YOBANI Last Admin: 05/21/25 09:37 Dose: 1 tab Naproxen (Naproxen 250 Mg Tablet) 250 mg PO BID PRN PRN Reason: Pain, Moderate(Pain Scale 4-6) Last Admin: 05/20/25 16:20 Dose: 250 mg Nicotine Polacrilex (Nicotine Polacrilex 2 Mg Gum) 4 mg BUCCAL Q2H PRN PRN Reason: Nicotine Cravings Prazosin HCl (Prazosin Hcl 1 Mg Capsule) 1 mg PO BEDTIME YOBANI; Protocol On Hold: 05/18/25 17:35 Last Admin: 05/17/25 20:53 Dose: Not Given Propranolol HCl (Propranolol Hcl 20 Mg Tablet) 20 mg PO BID PRN; Protocol PRN Reason: Anxiety Last Admin: 05/21/25 12:20 Dose: 20 mg Quetiapine Fumarate (Quetiapine Fumarate 50 Mg Tablet) 50 mg PO TID PRN PRN Reason: Anxiety Trazodone HCl (Trazodone Hcl 100 Mg Tablet) 200 mg PO BEDTIME YOBANI Last Admin: 05/20/25 20:36 Dose: 200 mg Vitamin D (Cholecalciferol (Vitamin D3) 25 Mcg Tablet) 50 mcg PO DAILY YOBANI Last Admin: 05/21/25 09:37 Dose: 50 mcg Allergies Allergies Allergy/AdvReac Type Severity Reaction Status Date / Time duloxetine (From CYMBALTA) Allergy Unknown RASH Verified 05/11/25 09:05 shrimp Allergy Anaphylaxis Verified 05/11/25 09:05 Assessment & Plan Assessment & Plan (1) Bipolar disorder, now depressed: Qualifiers: Current episode severity: unspecified Qualified Code(s): F31.30 - Bipolar disorder, current episode depressed, mild or moderate severity, unspecified Status: Acute Code(s): F31.30 - Bipolar disorder, current episode depressed, mild or moderate severity, unspecified (2) PTSD (post-traumatic stress disorder): Status: Acute Code(s): F43.10 - Post-traumatic stress disorder, unspecified Plan Patient is a 49 year old male with hx of Bipolar d/o, PTSD, cocaine use d/o and alcohol use d/o who self presented to ER d/t suicidal ideation secondary to increased depression. Plan: CV 15 minute safety checks Continue home medications Start: Clonidine 0.1 mg PO bedtime Latuda 20mg PO daily@1700 DC Prozac Obtain collateral Encourage groups Discharge planning 05/14: Patient continues to report feeling anxious and depressed. He reports sleeping improved last evening. denies any side effects from medications; pt reports he is glad to be taken off Prozac. denies SI/HI/VH/AH. showered. pt reports he will try to attend groups today. Continue current tx plan. 05/15: Keeping to self. encouraged to leave room. pt reports feeling anxious; pt stated, I can't tell if I feel good or bad. I feel down . denies SI/HI/VH/AH. per nursing, slept 8 hours last night. Continue current tx plan. 05/16: anxious, depressed. slept 8 hours. agrees to increase latuda to 40 mg daily for depression. otherwise continue current mgmt. 05/17: start prazosin 1 mg QHS for nightmares, titrate as indicated. otherwise continue current mgmt. 05/18: DC Prazosin. Otherwise continue current management and treatment plan. 05/19: Start Remeron 15 mg HS. Order entered after 9PM and may not have gotten a dose tonight. 05/20: Keeping to self. Pt reports feeling not bad today; anxious about discharging home. denies SI/HI/VH/AH. per nursing, slept 8 hours last night. Plan to discharge home if continues to improve. Valproic acid labs ordered for today; awaiting results. Continue current tx plan. 05/21: Pt reports feeling better but still depressed ; continues anxious about discharging home. Focused on medications. Encouraged to utilize coping skills and PRN medications. denies SI/HI/VH/AH. per nursing, slept 8 hours last night. Valproic acid level 55.8 on 05/21/25. Continue current tx livan Patient educated on: diagnosis, medication risk/benefits and therapeutic strategies Reason for continued inpatient stay Substantial Risk for: med/psych decompensation Time Spent With Patient Time: Total time managing care of this patient today _20___ minutes.
[2025-05-21 20:00] VITALS: BP 127/60; PULSE 77; RESP 16; TEMP 36.5; O2SAT 98
--- NOTE | 2025-05-21 20:23 | PC.NURSE ---
HS melatonin-only wanted one tablet, 2 were ordered
[2025-05-22 07:47] VITALS: BP 132/74; PULSE 53; RESP 16; TEMP 36.3; O2SAT 97
[2025-05-22 08:19] VITALS: BP 132/74
[2025-05-22 12:21] VITALS: BP 136/85; PULSE 82
--- NOTE | 2025-05-22 12:46 | HO.PSYCHPN ---
Subjective Subjective Date of Service: 05/22/25 Reason For Visit: SI Subjective Notes: Conditional Voluntary Interim History: Active on unit. observed reading Bible. Patient reports feeling better today;pt stated, I feel like I'm improving everyday. I feel more positive. I'm thinking about getting a job. I feel good with these meds . denies SI/HI/VH/AH. Plan to discharge back to sober home tomorrow; pt aware. Medication Compliance: Yes Side effects from medications: No Mental Status Exam Mental Status Exam Narrative: Pt is alert and oriented; behavior is cooperative and calm; dressed in casual attire; mood is described as better ; eye contact appropriate; Speech is normal rate, volume and not pressured; thought process is organized; Thought content is on discharge; denies SI/HI/VH/AH. Diagnostics Vital Signs (24Hr): Vital Signs - 24 hr 05/21/25 20:00 05/22/25 07:47 05/22/25 08:19 Temperature 97.7 F 97.4 F Pulse Rate 77 53 Respiratory Rate 16 16 Blood Pressure 127/60 132/74 132/74 Pulse Oximetry 98 97 Oxygen Delivery Method Room Air Room Air 05/22/25 12:21 Temperature Pulse Rate 82 Respiratory Rate Blood Pressure 136/85 Pulse Oximetry Oxygen Delivery Method BMI result Body Mass Index 29.8 Labs 05/13/25 15:18 05/13/25 15:18 Labs: Laboratory Results - last 48 hr 05/21/25 07:45 Total Bilirubin 0.4 Direct Bilirubin 0.2 AST 25 ALT 29 Alkaline Phosphatase 64 Ammonia 42 Total Protein 6.5 Albumin 3.8 Valproic Acid 55.8 Medications Medications Current Medications Acetaminophen (Acetaminophen 325 Mg Tablet) 650 mg PO Q6H PRN PRN Reason: Headache/Pain, Scale 1-10 Last Admin: 05/17/25 20:50 Dose: 650 mg Al Hydroxide/Mg Hydroxide (Magnesium Hydrox/Alum Hydrox 30 Ml Oral.Susp) 30 ml PO Q6H PRN PRN Reason: Heartburn/Nausea Clonidine HCl (Clonidine Hcl 0.1 Mg Tablet) 0.1 mg PO BEDTIME YOBANI; Protocol Last Admin: 05/21/25 20:21 Dose: 0.1 mg Divalproex Sodium (Divalproex Sodium 500 Mg Tablet.) 1,000 mg PO BEDTIME YOBANI Last Admin: 05/21/25 20:22 Dose: 1,000 mg Hydroxyzine HCl (Hydroxyzine Hcl 50 Mg Tablet) 50 mg PO Q4H PRN PRN Reason: Anxiety Last Admin: 05/21/25 20:21 Dose: 50 mg Lorazepam (Lorazepam 1 Mg Tablet) 1 mg PO DAILY PRN PRN Reason: Anxiety Last Admin: 05/22/25 08:24 Dose: 1 mg Losartan Potassium (Losartan Potassium 25 Mg Tablet) 25 mg PO DAILY YOBANI; Protocol Last Admin: 05/22/25 08:19 Dose: 25 mg Lurasidone HCl (Lurasidone Hcl 40 Mg Tablet) 40 mg PO DAILY@1700 YOBANI Last Admin: 05/21/25 17:08 Dose: 40 mg Magnesium Hydroxide (Milk Of Magnesia 30 Ml Oral.Susp) 30 ml PO DAILY PRN PRN Reason: Constipation Melatonin (Melatonin 3 Mg Tablet) 6 mg PO BEDTIME YOBANI Last Admin: 05/21/25 20:23 Dose: 3 mg Mirtazapine (Mirtazapine 15 Mg Tablet) 15 mg PO BEDTIME YOBANI Last Admin: 05/21/25 20:22 Dose: 15 mg Multivitamins/Vitamin C (Multivitamin Tablet) 1 tab PO DAILY [facility] Last Admin: 05/22/25 08:19 Dose: 1 tab Naproxen (Naproxen 250 Mg Tablet) 250 mg PO BID PRN PRN Reason: Pain, Moderate(Pain Scale 4-6) Last Admin: 05/22/25 11:47 Dose: 250 mg Nicotine Polacrilex (Nicotine Polacrilex 2 Mg Gum) 4 mg BUCCAL Q2H PRN PRN Reason: Nicotine Cravings Prazosin HCl (Prazosin Hcl 1 Mg Capsule) 1 mg PO BEDTIME YOBANI; Protocol On Hold: 05/18/25 17:35 Last Admin: 05/17/25 20:53 Dose: Not Given Propranolol HCl (Propranolol Hcl 20 Mg Tablet) 20 mg PO BID PRN; Protocol PRN Reason: Anxiety Last Admin: 05/22/25 12:21 Dose: 20 mg Trazodone HCl (Trazodone Hcl 100 Mg Tablet) 200 mg PO BEDTIME YOBANI Last Admin: 05/21/25 20:22 Dose: 200 mg Vitamin D (Cholecalciferol (Vitamin D3) 25 Mcg Tablet) 50 mcg PO DAILY YOBANI Last Admin: 05/22/25 08:19 Dose: 50 mcg Allergies Allergies Allergy/AdvReac Type Severity Reaction Status Date / Time duloxetine (From CYMBALTA) Allergy Unknown RASH Verified 05/11/25 09:05 shrimp Allergy Anaphylaxis Verified 05/11/25 09:05 Assessment & Plan Assessment & Plan (1) Bipolar disorder, now depressed: Qualifiers: Current episode severity: unspecified Qualified Code(s): F31.30 - Bipolar disorder, current episode depressed, mild or moderate severity, unspecified Status: Acute Code(s): F31.30 - Bipolar disorder, current episode depressed, mild or moderate severity, unspecified (2) PTSD (post-traumatic stress disorder): Status: Acute Code(s): F43.10 - Post-traumatic stress disorder, unspecified Plan Patient is a 49 year old male with hx of Bipolar d/o, PTSD, cocaine use d/o and alcohol use d/o who self presented to ER d/t suicidal ideation secondary to increased depression. Plan: CV 15 minute safety checks Continue home medications Start: Clonidine 0.1 mg PO bedtime Latuda 20mg PO daily@1700 DC Prozac Obtain collateral Encourage groups Discharge planning 05/14: Patient continues to report feeling anxious and depressed. He reports sleeping improved last evening. denies any side effects from medications; pt reports he is glad to be taken off Prozac. denies SI/HI/VH/AH. showered. pt reports he will try to attend groups today. Continue current tx plan. 05/15: Keeping to self. encouraged to leave room. pt reports feeling anxious; pt stated, I can't tell if I feel good or bad. I feel down . denies SI/HI/VH/AH. per nursing, slept 8 hours last night. Continue current tx plan. 05/16: anxious, depressed. slept 8 hours. agrees to increase latuda to 40 mg daily for depression. otherwise continue current mgmt. 05/17: start prazosin 1 mg QHS for nightmares, titrate as indicated. otherwise continue current mgmt. 05/18: DC Prazosin. Otherwise continue current management and treatment plan. 05/19: Start Remeron 15 mg HS. Order entered after 9PM and may not have gotten a dose tonight. 05/20: Keeping to self. Pt reports feeling not bad today; anxious about discharging home. denies SI/HI/VH/AH. per nursing, slept 8 hours last night. Plan to discharge home if continues to improve. Valproic acid labs ordered for today; awaiting results. Continue current tx plan. 05/21: Pt reports feeling better but still depressed ; continues anxious about discharging home. Focused on medications. Encouraged to utilize coping skills and PRN medications. denies SI/HI/VH/AH. per nursing, slept 8 hours last night. Valproic acid level 55.8 on 05/21/25. Continue current tx plan. 05/22: Active on unit. observed reading Bible. Patient reports feeling better today;pt stated, I feel like I'm improving everyday. I feel more positive. I'm thinking about getting a job. I feel good with these meds . denies SI/HI/VH/AH. Plan to discharge back to sober home tomorrow; pt aware. Patient educated on: diagnosis and medication risk/benefits Reason for continued inpatient stay Substantial Risk for: stable for discharge Time Spent With Patient Time: Total time managing care of this patient today _20___ minutes.
[2025-05-22 20:00] VITALS: BP 134/75; PULSE 72; RESP 18; TEMP 36.9; O2SAT 98
[2025-05-22 20:27] VITALS: BP 134/75
[2025-05-23 07:00] VITALS: BMI 30.9
[2025-05-23 07:15] VITALS: BP 112/57; PULSE 80; RESP 16; TEMP 36.4; O2SAT 96
[2025-05-23 08:18] VITALS: BP 112/57
--- NOTE | 2025-05-23 09:12 | PM.PSYDC ---
DS: Providers Provider Date of Service: 05/23/25 Date of admission: 05/13/25 12:36 Date of discharge: 05/23/25 Primary care physician: Leonides Physician Admitting clinician: Sue Finch Attending physician on admission: Theodore Ocampo Attending physician on discharge: Theodore Ocampo Discharging clinician: Sue Finch DS: Diagnosis Discharge Diagnosis (1) Bipolar disorder, now depressed: Status: Acute (2) PTSD (post-traumatic stress disorder): Status: Acute DS: Medications Discharge Medications Home Medications: Home Medications ?Medication ?Instructions ?Recorded ?Confirmed hydroxyzine pamoate 50 mg capsule 50 mg PO Q4H PRN Anxiety 05/11/25 05/11/25 lorazepam 1 mg tablet 1 mg PO DAILY PRN Anxiety 05/11/25 05/11/25 losartan 25 mg tablet 25 mg PO DAILY 05/11/25 05/11/25 melatonin 3 mg tablet 6 mg PO BEDTIME insomnia 05/11/25 05/11/25 multivitamin with minerals 1 cap PO DAILY 05/11/25 05/11/25 propranolol 20 mg tablet 20 mg PO BID PRN Anxiety 05/11/25 05/11/25 Previous Rx's ?Medication ?Instructions ?Recorded cholecalciferol (vitamin D3) 50 50 mcg PO DAILY 30 days #30 caps 10/15/24 mcg (2,000 unit) capsule trazodone 100 mg tablet 200 mg (2 x 100 mg) PO BEDTIME 30 10/15/24 days #60 tabs clonidine HCl 0.1 mg tablet 0.1 mg PO BEDTIME 30 days #30 tabs 05/22/25 divalproex 500 mg tablet,delayed 1,000 mg (2 x 500 mg) PO BEDTIME 05/22/25 release depressive disorder 30 days #60 tabs lurasidone 40 mg tablet (Latuda) 40 mg PO DAILY@1700 30 days #30 05/22/25 tabs mirtazapine 15 mg tablet 15 mg PO BEDTIME 30 days #30 tabs 05/22/25 Mental Status Exam Mental Status Exam Narrative: Pt is alert and oriented; behavior is cooperative and calm; dressed in casual attire; mood is described as good ; eye contact appropriate; Speech is normal rate, volume and not pressured; thought process is organized; Thought content is on discharge; denies SI/HI/VH/AH. Data Data Completed and Pending Completed studies during hospitalization [Text1]: 05/21/25 07:45 Total Bilirubin 0.4 Direct Bilirubin 0.2 AST 25 ALT 29 Alkaline Phosphatase 64 Ammonia 42 Total Protein 6.5 Albumin 3.8 Valproic Acid 55.8 DS: Summary Hospital Course Hospital Course: Patient is a 49 year old male with hx of Bipolar d/o, PTSD, cocaine use d/o and alcohol use d/o who self presented to ER d/t suicidal ideation secondary to increased depression. Per crisis report, patient self presented to ED due to increased depressive symptoms, recent changes to his psychiatric medications and suicidal ideation. He reports his most recent inpatient psychiatric hospitalization was at [facility] in February 2025. Patient describes feeling off for the past couple of weeks. Over the past week, he reports frequent bouts of crying, social withdrawal, and mood lability. Patient reports having thoughts of jumping out of his window or urges to jump from a bridge into the [place] river. Denies HI/VH/AH. History of multiple inpatient psychiatric hospitalizations. Patient reports having an outpatient psychiatrist in [place] however can not recall the name of the provider or the name of the agency. He does not have an outpatient therapist. Currently residing in a sober home. Utox positive for amphetamines During admission assessment, pt presents alert and oriented x3. Calm and cooperative. Pt reports feeling anxious and depressed ; pt stated, I was at [facility] 2 months ago and they started me on Prozac. I was having a lot of anxiety. My doctor increased it to 60mg and I felt like I wanted to jump out a window . Patient reports suicidal ideation with no plan. Pt stated, I've been feeling this way for the last two days. I don't know why. My daughter told me on Fathers Day that she doesn't want to see me. It hit me hard. That and my meds probably have something to do with my mood . Patient denies any substance use; pt reports he has not used substance in 7 months. He currently resides in a sober house. denies HI/VH/AH. Plan: CV 15 minute safety checks Continue home medications Start: Clonidine 0.1 mg PO bedtime Latuda 20mg PO daily@1700 DC Prozac Obtain collateral Encourage groups Discharge planning Patient continues to report feeling anxious and depressed. He reports sleeping improved last evening. denies any side effects from medications; pt reports he is glad to be taken off Prozac. denies SI/HI/VH/AH. showered. pt reports he will try to attend groups today. Continue current tx plan. Keeping to self. encouraged to leave room. pt reports feeling anxious; pt stated, I can't tell if I feel good or bad. I feel down . denies SI/HI/VH/AH. per nursing, slept 8 hours last night. Continue current tx plan. anxious, depressed. slept 8 hours. agrees to increase latuda to 40 mg daily for depression. otherwise continue current mgmt. start prazosin 1 mg QHS for nightmares, titrate as indicated. otherwise continue current mgmt. DC Prazosin. Otherwise continue current management and treatment plan. Start Remeron 15 mg HS. Order entered after 9PM and may not have gotten a dose tonight. Keeping to self. Pt reports feeling not bad today; anxious about discharging home. denies SI/HI/VH/AH. per nursing, slept 8 hours last night. Plan to discharge home if continues to improve. Valproic acid labs ordered for today; awaiting results. Continue current tx plan. Pt reports feeling better but still depressed ; continues anxious about discharging home. Focused on medications. Encouraged to utilize coping skills and PRN medications. denies SI/HI/VH/AH. per nursing, slept 8 hours last night. Valproic acid level 55.8 on 05/21/25. Continue current tx plan. Active on unit. observed reading Bible. Patient reports feeling better today;pt stated, I feel like I'm improving everyday. I feel more positive. I'm thinking about getting a job. I feel good with these meds . denies SI/HI/VH/AH. Plan to discharge back to sober home tomorrow; pt aware. Patient reports feeling good and ready for discharge. denies SI/HI/VH/AH. Pt reports he plans on following up with his outpatient providers. Status at Discharge Cognitive/behavioral status at discharge: Patient has insight and demonstrates good judgment in terms of wanting to pursue treatment. Patient has a safety plan that includes presenting to the closest ER or calling 911 if feeling unsafe. Functional status at discharge: independent ambulation Overall status at discharge: patient is back to baseline Time Spent with Patient Time attestation: Total time managing care of this patient today _20___ minutes. Time spent: Less than 30 minutes Discharge Plan Discharge Anticipated Discharge Date/Time: 05/23/25 11:00 Patient Disposition: Home, Self-Care Discharge Diagnosis: Bipolar d/o, PTSD Referrals: Therapy [Other] - 1 Week Referral Note: *You can present to the clinic above, Tuesday through Tuesday during the hours of 8am and 8pm, in order to obtain an outpatient therapist. Psychiatrist [Other] - 1 Week Referral Note: Please reach out to your outpatient psychiatric prescriber to schedule a follow up appointment. [facility] [Provider Group] - 1 Week Referral Note: 05-21-25 [facility] was added to patients chart. Please call [phone] to schedule a follow up appt within 7-10 days of discharge. Discharge Medications: New clonidine HCl 0.1 mg Tablet 0.1 mg PO BEDTIME 30 Days Qty: 30 0RF Protocol: Hold for SBP< HOLD for SBP < : 90 mirtazapine 15 mg Tablet 15 mg PO BEDTIME 30 Days Qty: 30 0RF lurasidone [Latuda] 40 mg Tablet 40 mg PO DAILY@1700 30 Days Qty: 30 0RF Continued losartan 25 mg tablet 25 mg PO DAILY melatonin 3 mg tablet 6 mg PO BEDTIME multivitamin with minerals Capsule 1 cap PO DAILY lorazepam 1 mg Tablet 1 mg PO DAILY PRN (Reason: Anxiety) propranolol 20 mg Tablet 20 mg PO BID PRN (Reason: Anxiety) hydroxyzine pamoate 50 mg Capsule 50 mg PO Q4H PRN (Reason: Anxiety) divalproex 500 mg tablet,delayed release (DR/EC) 1,000 mg PO BEDTIME 30 Days Qty: 60 0RF trazodone 100 mg Tablet 200 mg PO BEDTIME 30 Days Qty: 60 0RF cholecalciferol (vitamin D3) 50 mcg (2,000 unit) capsule 50 mcg PO DAILY 30 Days Qty: 30 0RF Discontinued bupropion HCl 150 mg tablet extended release 24 hr 150 mg PO QAM fluoxetine 40 mg capsule 40 mg PO QAM Discharge Orders: Discharge Order (Routine); Ordered 05/23/25 Ordered By: Sue Finch Diet: Regular diet Activity on Discharge: As tolerated Stand Alone Forms: Patient Portal Discharge page, Community Support Print Language: Greek Care Plan Goals: Maintain mood and safe behaviors Take medications as prescribed Continue to pursue sobriety Practice coping skills Continue with outpatient providers and reach out to them as needed Health Concerns: Mood stability and behaviors Sobriety Plan of Treatment: Follow up with your PCP, psychiatric provider and other outpatient providers regarding above concerns Take medications as prescribed Assessment: Patient has insight and demonstrates good judgment in terms of wanting to pursue treatment. Patient has a safety plan that includes presenting to the closest ER or calling 911 if feeling unsafe.
== END 2025-05-23 11:28 | disposition home or self-care (01) | DRG 885 ==
LOC: HO.ED 10:42 → HO.PADLT16 05-13 12:57
PROVIDERS: Admitting Provider Psychiatry & Neurology Psychiatry; Emergency Provider Emergency Medicine; Responsible Provider Registered Nurse; Visit Provider Psychiatry & Neurology Psychiatry
DX: F31.30 Bipolar disorder, current episode depressed, mild or moderate severity, unspecified (principal); R45.851 Suicidal ideations; F43.10 Post-traumatic stress disorder, unspecified; F17.210 Nicotine dependence, cigarettes, uncomplicated; Z71.6 Tobacco abuse counseling; Z79.899 Other long term (current) drug therapy
CPT/HCPCS: 36415; 80048; 80053; 80076; 80143; 80164; 80179; 80307; 81003; 82140; 85025; 93005; 99285; S9485

== ENCOUNTER → 2025-05-11 09:35 | Outpatient (BNV) | payer OTHER, SELFPAY | PROVIDERS: Emergency Provider Emergency Medicine; Visit Provider Internal Medicine Cardiovascular Disease | DX: R00.1 Bradycardia, unspecified (principal) | CPT/HCPCS: 93010 ==

== ENCOUNTER → 2025-05-13 12:36 | Outpatient (BNV) | payer OTHER, SELFPAY | PROVIDERS: Admitting Provider Psychiatry & Neurology Psychiatry; Emergency Provider Emergency Medicine; Responsible Provider Registered Nurse; Visit Provider Registered Nurse | DX: F31.32 Bipolar disorder, current episode depressed, moderate (principal); F43.11 Post-traumatic stress disorder, acute | CPT/HCPCS: 90792; 99231; 99232 ==

== ENCOUNTER 2025-05-31 12:49 | Inpatient (IN) | payer OTHER, SELFPAY ==
[2025-05-31 12:51] VITALS: BP 147/85; PULSE 51; RESP 16; TEMP 36.2; O2SAT 100; BMI 25.1
--- NOTE | 2025-05-31 12:58 | ED_ITS ---
HPI - General Adult General Chief complaint: Psychiatric Symptoms Stated complaint: Anxiety Time Seen by Provider: 05/31/25 13:22 Source: patient and old records reviewed Mode of arrival: ambulatory Limitations: no limitations History of Present Illness ED Provider: FAHEEM RUDOLPH narrative: 49 yo male with PMH of ETOH use disorder, cocaine use disorder, bipolar d/o, HTN, anxiety who presents with c/o depression and passive SI that he blames on his ativan 1mg daily being taken off a few days ago by his prescriber as well as lack of sleep due to vivid dreams he attributes to his new latuda. He notes he is not feeling safe at all. He just left our inpatient unit 05/23. He is asking for ativan on arrival. MD complaint: anxiety, SI Onset (ago): day(s) (few) Radiation: non-radiation Severity: moderate Relieving factors: none Exacerbating factors: medication Associated symptoms: denies other symptoms Treatments prior to arrival: none Related Data Home Medications ?Medication ?Instructions ?Recorded ?Confirmed hydroxyzine pamoate 50 mg capsule 50 mg PO Q4H PRN Anx iety 05/11/25 05/31/25 lorazepam 1 mg tablet 1 mg PO DAILY PRN Anxiety 05/31/25 losartan 25 mg tablet 25 mg PO DAILY 05/11/2505/21 melatonin 3 mg tablet 6 mg PO BEDTIME insomnia 05/31/25 propranolol 20 mg tablet 20 mg PO BID PRN Anxiety 05/31/25 Previous Rx's ?Medication ?Instructions ?Recorded trazodone 100 mg tablet 200 mg (2 x 100 mg) PO BEDTI ME 30 10/15/24 days #60 tabs clonidine HCl 0.1 mg tablet 0.1 mg PO BEDTIME 30 days #30 tabs 05/22/25 divalproex 500 mg tablet,delayed 1,000 mg (2 x 500 mg) PO BEDTIME 05/22/25 release depressive disorder 30 days #60 tabs lurasidone 40 mg tablet (Latuda) 40 mg PO DAILY@1700 3 0 days #30 05/22/25 tabs mirtazapine 15 mg tablet 15 mg PO BEDTIME 30 days #30 tabs 05/22/25 Allergies Allergy/AdvReac Type Severity Reaction Status Date / Time duloxetine (From CYMBALTA) Allergy Unknown RASH Verified 05/31/25 12:59 shrimp Allergy Anaphylaxis Verified 05/31/25 12:59 Review of Systems 2 Review of Systems: Constitutional : No Fever, No Chills ENT/Mouth : No Ear Pain, No Nasal Congestion, No sore throat Eyes: No Eye Pain, No Swelling, No Redness Cardiovascular : No Chest Pain, No SOB Respiratory : No Cough, No Sputum, No Dyspnea Gastrointestinal : No Nausea, No Vomiting, No Diarrhea, No Hematochezia, No Melena Genitourinary : No Dysuria, No Urinary Frequency, No Hematuria Musculoskeletal : No Myalgias Skin : No Skin Lesions, No rash Neuro : No Weakness, No Numbness, No Paresthesias, No Dizziness, No Headache Psych : positive Anxiety, positive Depression, positive SI no HI All other systems reviewed and are negative [facility] Past Medical History Attestation statement: The following information was validated with the patient. Source: old records reviewed Medical History Suicidal ideation Post traumatic stress disorder Alcohol use disorder Cocaine use disorder Hypertension Anxiety Depression Social History Social History Household Members: None Housing: Other Do you presently have visiting nurse or other home services: No ( Sober House ) Alcohol intake: current Alcohol intake frequency: former alcohol drinker Comment: not a high fall risk patient Patient Tobacco Use Status: Former Tobacco user Tobacco use type: Cigarette Smoked in Last 30 Days: No e-Cigarette/Vaping Use: Never Used Use of substances other than those prescribed or required for medical reasons: No Substance Use Type: Crack/Cocaine and Marijuana Advance Directives: Yes Advance Directives on File: Yes Advance Directives Date on File: 01/13/21 Do you have a plan to hurt others: No Plan service: No Sexual orientation: Straight/Heterosexual Physical Exam ED Vital Signs: Vital Signs - 24 hr 06/02/25 18:28 06/02/25 18:30 06/03/25 00:18 Temperature 98.9 F Pulse Rate 76 76 Respiratory Rate 16 Blood Pressure 139/85 139/85 139/85 Pulse Oximetry 99 Oxygen Delivery Method Room Air 06/03/25 06:31 06/03/25 08:43 06/03/25 08:53 Temperature 97.8 F 97.4 F Pulse Rate 57 51 Respiratory Rate 17 16 Blood Pressure 116/66 138/72 138/72 Pulse Oximetry 97 99 Oxygen Delivery Method Room Air Room Air BMI result Body Mass Index 25.1 Appearance: Alert. Oriented X3. No acute distress. Eyes: Pupils equal, round and reactive to light. ENT: Pharynx normal. Neck: Normal inspection. Neck supple. CVS: Normal heart rate and rhythm. Pulses normal. Respiratory: No respiratory distress. Breath sounds normal. Abdomen: Soft and nontender. Skin: Skin warm and dry. Normal skin color. Normal skin turgor. Extremities: No lower extremity edema. No calf ttp Neuro: Oriented X 3. No motor deficit. No sensory deficit. CN2-12 intact Course Course Course Narrative: RME, this is a rapid medical exam performed by Veto Lezama please refer to primary provider for complete H&P- 49 year old male presents for evaluation of depression with passive SI. No Plan. He reports that he was told to stop his Ativan 1mg daily cold turkey 3 days ago. Plan for medical clearance and care team consult Reevaluation(s) Reevaluation #1: Time: 17:50 Date: 06/01/25 Provider: Charanjit Ellington MD Patient in physician observation for psychiatric evaluation.? No acute events reported overnight. No current complaints. VS stable.? The patient has been seen by the care team. Additionally the patient had a consult from psychiatry. Recommendation is for inpatient care. The patient will therefore be started on an inpatient psychiatric bed search. The patient seems stable and at this point at least is amenable to the plan. Will continue to monitor. Reevaluation #2: Time: 11:10 Date: 06/03/25 Provider: Rosibel Saldaña DO Patient in physician observation for psychiatric evaluation.? No acute events reported overnight. No current complaints. VS stable.? Patient is in bed search status. Will continue to monitor. Reevaluation #3: Time: 11:28 Date: 06/03/25 Provider: Rosibel Saldaña DO Physician observation ended at 1128am. Patient to be admitted as inpatient to psychiatry. Medications Administered Generic Name Dose Route Start Last Admin Trade Name Freq PRN Reason Stop Dose Admin Clonidine HCl 0.1 mg 05/31/25 21:00 06/03/25 00:18 Clonidine Hcl 0.1 Mg Tablet PO 0.1 mg BEDTIME YOBANI Administration Protocol Divalproex Sodium 1,000 mg 05/31/25 21:00 06/03/25 00:18 Divalproex Sodium 500 Mg Tablet.Dr PO 1,000 mg BEDTIME YOBANI Administration Hydroxyzine HCl 50 mg 05/31/25 18:09 06/03/25 08:53 Hydroxyzine Hcl 50 Mg Tablet PO 50 mg Q4H PRN Administration Anxiety Lorazepam 1 mg 05/31/25 18:09 06/02/25 12:58 Lorazepam 1 Mg Tablet PO 1 mg DAILY PRN Administration Anxiety Losartan Potassium 25 mg 06/01/25 09:00 06/03/25 08:53 Losartan Potassium 25 Mg Tablet PO 25 mg DAILY YOBANI Administration Protocol Lurasidone HCl 40 mg 06/01/25 17:00 06/02/25 17:20 Lurasidone Hcl 40 Mg Tablet PO Not Given DAILY@1700 YOBANI Melatonin 6 mg 05/31/25 21:00 06/03/25 00:18 Melatonin 3 Mg Tablet PO 6 mg BEDTIME YOBANI Administration Mirtazapine 15 mg 05/31/25 21:00 06/03/25 00:19 Mirtazapine 15 Mg Tablet PO 15 mg BEDTIME YOBANI Administration Propranolol HCl 20 mg 05/31/25 18:09 06/02/25 18:28 Propranolol Hcl 20 Mg Tablet PO 20 mg BID PRN Administration Anxiety Protocol Trazodone HCl 200 mg 05/31/25 21:00 06/03/25 00:18 Trazodone Hcl 100 Mg Tablet PO 200 mg BEDTIME YOBANI Administration Discontinued Medications Generic Name Dose Route Start Last Admin Trade Name Rajiq PRN Reason Stop Dose Admin Hydroxyzine HCl 50 mg 05/31/25 16:44 05/31/25 16:49 Hydroxyzine Hcl 50 Mg Tablet PO 05/31/25 16:45 50 mg ONCE ONE Administration Medical Decision Making Medical Decision Making MDM Narrative: 49 yo male with PMH of ETOH use disorder, cocaine use disorder, bipolar d/o, HTN, anxiety now here with concern for ativan withdrawal but no tremors, fasciculations and her VS is normal - at this time the patient will need clearance labs and I am going to hold benzo as he does not appear to be in withdrawal. Differential Diagnosis Differential Diagnoses: The differential diagnosis associated with the presentation includes anxiety, benzo misuse, depression Admission/Observation Consideration of admission/observation: Escalation of care including admission/observation considered physician observation started at 142pm pending CARE team Consult Healthcare Provider Management of the patient was discussed with: Behavioral Health Provider Lab Data [facility] Lab Attestation statement: I reviewed the patient's lab results. 05/31/25 13:29 05/31/25 13:29 Labs: Lab Results 05/31/25 05/31/25 Range/Units 13:29 13:33 WBC 9.0 (4.8-10.8) X10*3/uL RBC 4.90 (4.60-5.80) X10*6/uL Hgb 14.8 (14.0-18.0) g/dl Hct 42.4 (42.0-52.0) % MCV 86.5 (80.0-98.0) fL MCH 30.2 (27.0-33.0) pg MCHC 34.9 (31.0-36.0) g/dl RDW 11.9 (11.0-16.0) % Plt Count 269 (160-400) X10*3/uL MPV 8.8 L (9.4-12.4) fL Immature Gran % (Auto) 0.3 (0.0-0.4) % Neut % (Auto) 40.6 L (45-73) % Lymph % (Auto) 51.6 H (20-40) % [place] % (Auto) 4.7 (2-11) % Eos % (Auto) 2.5 (0-4) % Baso % (Auto) 0.3 (0-2) % Lymph # (Auto) 4.7 (1.2-4.9) X10*3/uL [place] # (Auto) 0.4 (0.1-1.2) X10*3/uL Eos # (Auto) 0.2 (0.0-0.4) X10*3/uL Baso # (Auto) 0.0 (0.0-0.2) X10*3/uL Abs Immat Gran (auto) 0.03 (0.00-0.03) X10*3/uL Absolute Neuts (auto) 3.7 (2.0-8.3) x10*3/uL Absolute Nucleated RBC 0.000 (0.0-0.012) X10*3/uL Nucleated RBC % (auto) 0.0 (0.0-0.2) /100WBC Sodium 139 (135-145) mmol/L Potassium 4.4 (3.3-5.1) mmol/L Chloride 103 (96-108) mmol/L Carbon Dioxide 27 (22-29) mmol/L Anion Gap 13 (12-20) BUN 22 H (9-16) mg/dL Creatinine 1.18 (0.5-1.4) mg/dL Estim Creat Clear Calc 80.6 Estimated GFR > 60 Random Glucose 108 (60-115) mg/dL Calcium 9.5 (8.4-10.2) mg/dL Total Bilirubin 0.5 (0.0-1.0) mg/dL AST 25 (5-37) U/L ALT 30 (0-40) U/L Alkaline Phosphatase 66 (39-117) U/L Total Protein 7.4 (6.5-8.0) g/dL Albumin 4.1 (3.5-5.0) g/dL Urine Color Yellow Urine Appearance Clear Urine pH 6.5 (5.0-9.0) Ur Specific [place] 1.020 (1.005-1.025) Urine Protein Negative (Neg-Trace) mg/dL Urine Glucose (UA) Negative (Negative) mg/dL Urine Ketones Trace (Negative) mg/dL Urine Blood Negative (Negative) Urine Nitrite Negative (Negative) Ur Leukocyte Esterase Negative (Negative) Salicylates < 5.0 L (15-30) mg/dL Urine Opiates Screen Not Detected (Not Detect) Ur Buprenorphine Scrn Not Detected (Not Detect) ng/mL Ur Oxycodone Screen Not Detected (Not Detect) ng/mL Urine Methadone Screen Not Detected (Not Detect) ng/mL Urine Fentanyl Screen Not Detected (Not Detect) Acetaminophen < 3 (<30) mcg/mL Ur Barbiturates Screen Not Detected (Not Detect) Ur Phencyclidine Scrn Not Detected (Not Detect) Ur Amphetamines Screen Not Detected (Not Detect) U Benzodiazepines Scrn Not Detected (Not Detect) Urine Cocaine Screen Not Detected (Not Detect) U Marijuana (THC) Screen Not Detected (Not Detect) Ethyl Alcohol 13 mg/dL External Record Review External record reviewed: Inpatient record and Outpatient record Discharge Plan Discharge Clinical Impression: Anxiety, Bipolar disorder Patient Disposition: Admitted As Inpatient Interventions: [place]-Suicide Risk Severity Scale Last Done: 06/02/25 20:00 Print Language: German
[2025-05-31 13:32] LABS: MANUAL DIFF FLAG NO
[2025-05-31 13:42] LABS: Hematocrit 42.4 % (42.0-52.0); Hemoglobin 14.8 g/dl (14.0-18.0); Imm Gran Abs Auto 0.03 X10*3/uL (0.00-0.03); Imm Gran Pct Auto 0.3 % (0.0-0.4); Lymphocytes Absolute Auto 4.7 X10*3/uL (1.2-4.9); Mean Corpuscular HGB Conc 34.9 g/dl (31.0-36.0); Mean Corpuscular Hemoglobin 30.2 pg (27.0-33.0); Mean Corpuscular Volume 86.5 fL (80.0-98.0); NRBC Abs Auto 0.000 X10*3/uL (0.0-0.012); NRBC Pct Auto 0.0 /100WBC (0.0-0.2); Platelet Count 269 X10*3/uL (160-400); Red Blood Count 4.90 X10*6/uL (4.60-5.80); White Blood Count 9.0 X10*3/uL (4.8-10.8)
[2025-05-31 13:47] LABS: Cannabinoid Screen Urine Not Detected (Not Detect)
[2025-05-31 13:50] LABS: Alanine Aminotransferase 30 U/L (0-40); Albumin Level 4.1 g/dL (3.5-5.0); Alkaline Phosphatase 66 U/L (39-117); Anion Gap 13 (12-20); Aspartate Amino Transferase 25 U/L (5-37); Blood Urea Nitrogen 22 mg/dL (9-16); Calcium 9.5 mg/dL (8.4-10.2); Carbon Dioxide 27 mmol/L (22-29); Chloride 103 mmol/L (96-108); Creatinine Clr Calc Pharmacy 80.6; Estimated Glomerular Filt Rate > 60; Potassium 4.4 mmol/L (3.3-5.1); Sodium 139 mmol/L (135-145); Total Protein 7.4 g/dL (6.5-8.0)
[2025-05-31 13:51] LABS: Acetaminophen LAB < 3 mcg/mL (<30); Salicylate < 5.0 mg/dL (15-30)
--- OUTSIDE RECORDS SUMMARY | 2025-05-31 13:52 | XMS_ITS | Encounter Summary ---
Author Organization [employer] Address [address] [place] [address] Care Team Providers Care Skid Adzer Name Role Phone Russel Weinstein MD Primary Care Prov ider Encounter Details Date Type Department Care Team (Late st Contact Info) Description 04/09/2025 Orders Only [facility] [address] [place] [address] Hansa Martinez MA Social History Tobacco Use [...] with others, in a hotel, in a penitentiary, living outside on the street, on a [...] documented as of this encounter Care Teams Skid Adzer Relationship Specialty Start Date End Date Russel Weinstein MD [address] [place] [id number] PCP - General Internal Medicine 02/15/25 documented as of this encounter
--- OUTSIDE RECORDS SUMMARY | 2025-05-31 13:52 | XMS_ITS | Encounter Summary ---
Author Organization [employer] Address [address] [place] [address] Care Team Providers Care Mortgage Banker Name Role Phone Anjali Uribe ANALYTICAL SCIENCES DIRECTOR Primary Care Provider [phone] Encounter Details Date Type Department Care Team (Late st Contact Info) Description 03/22/2025 Lab Requisition [facility] - Main Lab [address] [place] [id number] Sania Wing V, TOWER DIRECTOR [address] [place] [address] Other [facility] (current) drug therapy Social History Tobacco Use Types Packs/Day Years Used Date Smoking Tobacco: Every Day Cigarettes Smokeless Tobacco: Former Alcohol Use Standard Drinks/Week Comments Not Currently 0 (1 standard drink = 0.6 oz pur e alcohol) Sex and Gender Information Value Date Recorded Sex Assigned at Not on file Legal Sex Male 5:44 AM EST Gender Identity Not on file Sexual Orientation Not on file documented as of this encounter Functional Status * Are you deaf or do you have serious difficulty hearing? Answer Date of Assessment Author No 03/15/2025 11:40 PM EDT Andres Waldron RN * Are you blind or do you have serious difficulty seeing, even when wearing glasses? Answer Date of Assessment Author No 03/15/2025 11:40 PM JUAN PABLOT Andres Waldron RN * Do you have serious difficulty walking or climbing stairs? Answer Date of Assessment Author No 03/15/2025 11:40 PM JUAN PABLOT Andres Waldron RN * Do you have serious difficulty dressing or bathing? Answer Date of Assessment Author No 03/15/2025 11:40 PM EDT Andres Waldron RN * Because of a physical, mental, or emotional condition, do you have serious difficulty doing errandsalone such as visiting the doctor? Answer Date of Assessment Author No 03/15/2025 11:40 PM EDT Andres Waldron RN documented as of this encounter Mental Status * Because of a physical, mental, or emotional condition, do you have serious difficulty concentrating, remembering, or making decisions? (5 years old or older) Answer Entry Date Author No 03/15/2025 11:40 PM EDT Andres Waldron RN documented in this encounter Plan of Treatment Not on file documented as of this encounter Procedures Procedure Name Priority Date/Time Associated Diagnosis Comments VALPROIC ACID LEVEL, TOTAL Routine 03/22/2025 7:00 AM EDT Other rn long term care (current) drug therapy documented in this encounter Results * Valproic acid level, total (03/22/2025 7:00 AM EDT) Valproic Acid, Total 78 50 - 100 mcg/mL LAB CHEMISTRY METHOD 03/22/2025 10:44 AM EDT [facility] Comment:Results verified by repeat testing Blood Venous blood specimen / Unknown Venipuncture / Unknown 03/22/2025 7:00 AM EDT 03/22/2025 8:48 AM EDT us Sania Wing V, TOWER DIRECTOR LAB BLOOD ORDERABLES Final Re sult [facility] [address] [place] [address], documented in this encounter Visit Diagnoses Diagnosis Other [facility] (current) drug therapy documented in this encounter Care Teams Mortgage Banker Relationship Specialty Start Date End Date Anjali Uribe FNP [address] [place] [phone] PCP - General Family Medicine 03/23/25 documented as of this encounter
[2025-05-31 14:22] VITALS: BP 147/76; PULSE 56; RESP 16; TEMP 37; O2SAT 96
--- NOTE | 2025-05-31 14:33 | PC.NURSE ---
Assumed care of patient at 1430, patient reporting moderate anxiety, stating that he does not feel his meds are appropriate stating that he is having increased visual hallucinations since changing meds
[2025-05-31 15:36] LABS: Appearance Urine Clear; Glucose Urine UA Negative (Negative); PH 6.5 (5.0-9.0); Specific Gravity - Urine 1.020 (1.005-1.025)
[2025-05-31 20:43] VITALS: BP 153/90
--- NOTE | 2025-05-31 21:30 | PC.NURSE ---
assumed care of pt @1900, pt A+Ox4, expressing acute anxiety and believes he is withdrawing from benzo's and frustrated that his provider took him off. Repeatedly requesting ativan stated he is becoming agitated and requesting to speak with provider. Discussed PRN order in [facility] w/ Dr. Wang and Dr. Saldaña's note regarding holding benzo's at this time, Dr. Wang agreeable to holding PRN order at this time. Pt medicated per JAN, pt continuos to ask to speak with provider or care team regarding benzo use, denies SI, but confirms HI stating When I black out I don't remember what happens safety precautions in place, Q15 min checks remain, plan of care ongoing
[2025-06-01 06:39] VITALS: BP 111/60; PULSE 48; RESP 18; TEMP 37.2; O2SAT 99
--- NOTE | 2025-06-01 07:19 | PC.NURSE ---
Assumed care of patient at 0645, patient appears to be in no apparent distress this am, appears to be sleeping, respirations are even and unlabored. Continue plan of care for psych consult today
[2025-06-01 10:41] VITALS: BP 144/92
[2025-06-01 10:42] VITALS: BP 144/92; PULSE 58; RESP 16; TEMP 36.7; O2SAT 99
[2025-06-01 16:09] VITALS: BP 131/90; PULSE 62; RESP 16; TEMP 36.4; O2SAT 97
--- NOTE | 2025-06-01 17:34 | PC.NURSE ---
Patient has been resting in bed, no apparent distress is noted at this time. Plan is now for an inpatient bedsearch to occur after CARE team consulted with psychiatry
[2025-06-01 21:20] VITALS: BP 112/63; PULSE 78; RESP 18; TEMP 36.8; O2SAT 96
[2025-06-02 06:49] VITALS: BP 122/58; PULSE 50; RESP 17; TEMP 36.8; O2SAT 98
--- NOTE | 2025-06-02 07:04 | PC.NURSE ---
Assumed care of patient at 0645, patient appears to be sleeping at this time, respirations even and unlabored, no apparent distress is noted. Continue plan of care for IPLOC
--- NOTE | 2025-06-02 07:30 | PHA.MEDREC ---
Pharmacy Consult ? Medication Reconciliation Pharmacy has completed the medication reconciliation. REVIEWED MED REC DONE BY NURSING AND CONFIRMED THAT BUSPIRONE AND BUPROPION WERE DISCONTINUED PER DISCHARGE FROM THIS FACILITY ON 05/23/25.
--- NOTE | 2025-06-02 17:20 | PC.NURSE ---
patient refused 5pm Latuda dose stating Nope, it made me feel funny, i do not want to take it anymore
[2025-06-02 18:28] VITALS: BP 139/85; PULSE 76
[2025-06-02 18:30] VITALS: BP 139/85; PULSE 76; RESP 16; TEMP 37.2; O2SAT 99
--- NOTE | 2025-06-02 20:05 | PC.NURSE ---
patient appears in no distress at present respirations are even and unlabored patient appears in no distress.
[2025-06-03] VITALS (8 sets, daily range): BP systolic 105–139; BP diastolic 55–85; PULSE 51–69; RESP 16–18; TEMP 36.3–36.9; O2SAT 97–99; BMI 30.7
--- NOTE | 2025-06-03 08:18 | ECG_ITS ---
Test Reason : medical clearance Blood Pressure : */* mmHG Vent. Rate : 48 BPM Atrial Rate : 48 BPM P-R Int : 158 ms QRS Dur : 98 ms QT Int : 464 ms P-R-T Axes : 40 34 40 degrees QTcB Int : 414 ms Sinus bradycardia Otherwise normal ECG When compared with ECG of 11-May-2025 10:10, No significant change was found Referred By: Sabina Castro Electronically Signed By: LIBBY AVILA
--- NOTE | 2025-06-03 15:04 | HO.PSYADMNOT ---
HPI Date of Service: 06/03/25 Chief Complaint: SI Sources of Information: patient interviewed, chart reviewed and crisis/core team assessment reviewed HPI Subjective Notes: Gonzalez Warning and Conditional Voluntary Narrative: Patient is a 49 year old male with hx of Bipolar d/o, PTSD, cocaine use d/o and alcohol use d/o who self presented to ER d/t vague suicidal ideation with no plan secondary to increased depression and anxiety. Per crisis report, patient was recently discharged from on 05/23/2025. Patient self presented with similar complaints. Patient reports increased anxiety and depression, vague SI with no specific plan. Patient reports he has been prescribed Ativan 1 mg for the past 2 months but is outpatient prescriber abruptly discontinued it several days ago. He believes he is experiencing withdrawal symptoms. Patient reports feelings of hopelessness as well as increased anxiety and depression. Patient denies HI/VH/AH. He reports poor sleep due to vivid dreams. Denies any substance use, however U tox positive for alcohol. He reports being sober for the past 6 months. Patient reports being medication compliant. During admission assessment, patient presents alert and oriented x3. Calm and cooperative. Patient reports feeling anxious and depressed; patient stated, I don't know what happen. I went downhill. I was doing my exercises then my outpatient psychiatrist stopped my Ativan right away without doing it slow. My anxiety and panic got worse . Patient reports he would like new outpatient psychiatric providers and would like his Latuda increased. Patient denies SI/HI/VH/AH. Utox positive for alcohol. Past Psychiatric History: History of multiple inpatient psychiatric hospitalizations. treatment?trials: [facility];?cause?sexual?side?effects?so?switch?to?Depakote?which?he?says?works?well. Seroquel, Thorazine, Buspar, Abilify, Wellbutrin, Mirtazepine, Gabapentin, Zyprexa: have not been that helpful. Reports?ECT?in?the?past,?3?independent?times Prescriber: Ryne ([facility]) Therapist: does not have one at this time. hx of SIB: denies Medical Evaluation Reviewed: Yes [facility] Medical History Suicidal ideation Post traumatic stress disorder Alcohol use disorder Cocaine use disorder Hypertension Anxiety Depression Family History: Brother: Depression Sister: Anxiety Social History: Lives in a sober home. single and . One adult daughter who he does not speak to. Disability. Highest level of education completed high school diploma. Substance History: History of alcohol and cocaine use. Utox positive for alcohol. Trauma History: patient states he was traumatized by his divorce and inability to see his daughter. Diagnostics Vital Signs (24Hr): Vital Signs - 24 hr 06/02/25 18:28 06/02/25 18:30 06/03/25 00:18 Temperature 98.9 F Pulse Rate 76 76 Respiratory Rate 16 Blood Pressure 139/85 139/85 139/85 Pulse Oximetry 99 Oxygen Delivery Method Room Air 06/03/25 06:31 06/03/25 08:43 06/03/25 08:53 Temperature 97.8 F 97.4 F Pulse Rate 57 51 Respiratory Rate 17 16 Blood Pressure 116/66 138/72 138/72 Pulse Oximetry 97 99 Oxygen Delivery Method Room Air Room Air 06/03/25 13:20 Temperature 97.7 F Pulse Rate 60 Respiratory Rate 18 Blood Pressure 136/77 Pulse Oximetry 97 Oxygen Delivery Method Room Air BMI result Body Mass Index 25.1 Labs 05/31/25 13:29 05/31/25 13:29 Meds/Allergies Meds Home Medications ?Medication ?Instructions ?Recorded ?Confirmed ?Type hydroxyzine pamoate 50 mg capsule 50 mg PO Q4H PRN Anxiety 05/11/25 05/31/25 History lorazepam 1 mg tablet 1 mg PO DAILY PRN Anxiety 05/11/25 05/31/25 History losartan 25 mg tablet 25 mg PO DAILY 05/11/25 05/31/25 History melatonin 3 mg tablet 6 mg PO BEDTIME insomnia 05/11/25 05/31/25 History propranolol 20 mg tablet 20 mg PO BID PRN Anxiety 05/11/25 05/31/25 History Allergies Allergies Allergy/AdvReac Type Severity Reaction Status Date / Time duloxetine (From [facility]) Allergy Unknown RASH Verified 05/31/25 12:59 shrimp Allergy Anaphylaxis Verified 05/31/25 12:59 Mental Status Exam Mental Status Exam Narrative: Pt is alert and oriented; behavior is cooperative and calm; dressed in casual attire; mood is described as anxious and depressed ; eye contact appropriate; Speech is normal rate, volume and not pressured; thought process is organized and goal directed; Thought content is on tx; denies SI/HI/VH/AH. Assessment & Plan Assessment & Plan (1) Bipolar disorder: Status: Acute Code(s): F31.9 - Bipolar disorder, unspecified (2) PTSD (post-traumatic stress disorder): Status: Acute Code(s): F43.10 - Post-traumatic stress disorder, unspecified (3) Cocaine use disorder: Status: Acute Code(s): F14.10 - Cocaine abuse, uncomplicated (4) Alcohol use disorder: Status: Acute Code(s): F10.90 - Alcohol use, unspecified, uncomplicated Plan Patient is a 49 year old male with hx of Bipolar d/o, PTSD, cocaine use d/o and alcohol use d/o who self presented to ER d/t vague suicidal ideation with no plan secondary to increased depression and anxiety. Plan: CV 15 minute safety checks Continue home medications Obtain collateral Referral to outpatient psychiatric providers Encourage groups Discharge planning Patient educated on: diagnosis and medication risk/benefits Reason for continued inpatient stay Substantial Risk for: med/psych decompensation Statement Statement: I have reviewed the history and physical and performed a pertinent examination on my patient. No changes have occurred unless specified. If the History and Physical was not performed prior to admission, the Hospitalist's service will be consulted for completing the admission physical. Time Spent With Patient Time: Total time managing care of this patient today _60___ minutes.
--- NOTE | 2025-06-03 15:15 | PC.ADMIT ---
Nursing admission note: 49 year old male DX: Unspecified BiPolar Disorder. Signed conditional voluntary for admission. Self presented to [facility] due to increased depressive symptoms, recent change to medications and recurrent SI. Jeff engaged easily. Calm and cooperative with adission process. Reports mood continues real depressed with + SI. Denies plan or intent on unit, agrees to engage staff if feeling he will act on ideation. Reports feeling safe here. States I get real sad and depressed and ask God why? I am doing the best I can . States anxiety has been high , I get diggs, feel like I am going crazy . Patient reports discontinuation of Ativan a contributing factor to mood instability, states he feels like he is having withdrawal. States he feels like I want to jump out of my body . Affect is congruent. Presents with good eye contact, dressed in hospital attire, good attn to ADL. Speech is normal in rate, tone, prosody. Thoughts are clear, linear and organized. Denies perceptual disturbances, no overt psychosis or expressed delusions. Denies A/V hallucinations. Reports vivid dreams, I had a dream that my fan changed to a worm that wants to bite me , decreased sleep. Reports decreased appetite due to anxiety. Medical history includes HTN. Allergy to shrimp, Duloxetine. Denies substance use although states I was this close to drinking . TOX screen negative. Goal for admission is to adjust medication, and obtain new providers. See nursing assessment/crisis evaluation for further details. Oriented to unit. Placed on q 15 minute safety checks.
[2025-06-04 07:51] VITALS: BP 114/62; PULSE 58; RESP 18; TEMP 36.5; O2SAT 93
[2025-06-04 08:09] LABS: Alanine Aminotransferase 29 U/L (0-40); Albumin Level 3.9 g/dL (3.5-5.0); Alkaline Phosphatase 59 U/L (39-117); Anion Gap 13 (12-20); Aspartate Amino Transferase 22 U/L (5-37); Blood Urea Nitrogen 21 mg/dL (9-16); Calcium 9.4 mg/dL (8.4-10.2); Carbon Dioxide 31 mmol/L (22-29); Chloride 104 mmol/L (96-108); Cholesterol 151 mg/dL (<200); Creatinine Clr Calc Pharmacy 97.7; Estimated Glomerular Filt Rate > 60; HDL Cholesterol 31 mg/dL (>40); Potassium 4.6 mmol/L (3.3-5.1); Sodium 143 mmol/L (135-145); Total Protein 6.7 g/dL (6.5-8.0); Triglycerides 145 mg/dL (<150)
[2025-06-04 08:11] LABS: Hemoglobin A1C 136.8431 umol/L; Total Hemoglobin (HGBA1C) 3866.8715 umol/L
[2025-06-04 08:36] VITALS: BP 114/62
--- NOTE | 2025-06-04 09:31 | P.PNPSI_ITS ---
Subjective Subjective Date of Service: 06/04/25 Reason For Visit: SI Subjective Notes: Conditional Voluntary Interim History: Laying in bed. patient reports feeling the same as yesterday ; pt reports night dumont were not as intense . He is requesting to not be on multiple antihypertensives; DC clonidine. pt reports he plans on going to groups later today. denies SI/HI/VH/AH. Continue current tx plan. Medication Compliance: Yes Side effects from medications: No Attending Groups: No Mental Status Exam Mental Status Exam Narrative: Pt is alert and oriented; behavior is cooperative and calm; dressed in casual attire; mood is described as anxious and depressed ; eye contact appropriate; Speech is normal rate, volume and not pressured; thought process is organized and goal directed; Thought content is on tx; denies SI/HI/VH/AH. Diagnostics Vital Signs (24Hr): Vital Signs - 24 hr 06/03/25 13:20 06/03/25 20:00 06/03/25 20:16 Temperature 97.7 F 98.4 F Pulse Rate 60 69 Respiratory Rate 18 16 Blood Pressure 136/77 105/55 L 105/55 L Pulse Oximetry 97 98 Oxygen Delivery Method Room Air Room Air 06/03/25 20:17 06/04/25 07:51 06/04/25 08:36 Temperature 97.7 F Pulse Rate 58 Respiratory Rate 18 Blood Pressure 105/55 L 114/62 114/62 Pulse Oximetry 93 Oxygen Delivery Method Room Air BMI result Body Mass Index 30.7 Labs 05/31/25 13:29 06/04/25 07:32 Labs: Laboratory Results - last 48 hr 06/04/25 07:32 Sodium 143 Potassium 4.6 Chloride 104 Carbon Dioxide 31 H Anion Gap 13 BUN 21 H Creatinine 1.10 Estim Creat Clear Calc 97.7 Estimated GFR > 60 Random Glucose 102 Estimat Average Glucose 108 Hemoglobin A1c % 5.4 Calcium 9.4 Total Bilirubin 0.4 AST 22 ALT 29 Alkaline Phosphatase 59 Total Protein 6.7 Albumin 3.9 Triglycerides 145 Cholesterol 151 LDL Cholesterol, Calc 91 HDL Cholesterol 31 L Medications Medications Current Medications Acetaminophen (Acetaminophen 325 Mg Tablet) 650 mg PO Q6H PRN PRN Reason: Headache/Pain, Scale 1-10 Last Admin: 06/03/25 20:17 Dose: 650 mg Al Hydroxide/Mg Hydroxide (Magnesium Hydrox/Alum Hydrox 30 Ml Oral.Susp) 30 ml PO Q6H PRN PRN Reason: Heartburn/Nausea Clonidine HCl (Clonidine Hcl 0.1 Mg Tablet) 0.1 mg PO BEDTIME YOBANI; Protocol Last Admin: 06/03/25 20:16 Dose: 0.1 mg Divalproex Sodium (Divalproex Sodium 500 Mg Tablet.Dr) 1,000 mg PO BEDTIME YOBANI Last Admin: 06/03/25 20:16 Dose: 1,000 mg Hydroxyzine HCl (Hydroxyzine Hcl 50 Mg Tablet) 50 mg PO Q4H PRN PRN Reason: Anxiety Last Admin: 06/03/25 15:01 Dose: 50 mg Lorazepam (Lorazepam 1 Mg Tablet) 1 mg PO DAILY PRN PRN Reason: Anxiety Last Admin: 06/04/25 08:43 Dose: 1 mg Losartan Potassium (Losartan Potassium 25 Mg Tablet) 25 mg PO DAILY YOBANI; Protocol Last Admin: 06/04/25 08:36 Dose: 25 mg Lurasidone HCl (Lurasidone Hcl 40 Mg Tablet) 40 mg PO DAILY@1700 YOBANI Last Admin: 06/03/25 17:14 Dose: 40 mg Magnesium Hydroxide (Milk Of Magnesia 30 Ml Oral.Susp) 30 ml PO DAILY PRN PRN Reason: Constipation Melatonin (Melatonin 3 Mg Tablet) 6 mg PO BEDTIME YOBANI Last Admin: 06/03/25 20:16 Dose: 6 mg Mirtazapine (Mirtazapine 15 Mg Tablet) 15 mg PO BEDTIME YOBANI Last Admin: 06/03/25 20:17 Dose: 15 mg Nicotine Polacrilex (Nicotine Polacrilex 2 Mg Gum) 4 mg BUCCAL Q2H PRN PRN Reason: Nicotine Cravings Prazosin HCl (Prazosin Hcl 1 Mg Capsule) 1 mg PO BEDTIME YOBANI; Protocol Last Admin: 06/03/25 20:17 Dose: 1 mg Propranolol HCl (Propranolol Hcl 20 Mg Tablet) 20 mg PO BID PRN; Protocol PRN Reason: Anxiety Last Admin: 06/02/25 18:28 Dose: 20 mg Trazodone HCl (Trazodone Hcl 100 Mg Tablet) 200 mg PO BEDTIME YOBANI Last Admin: 06/03/25 20:17 Dose: 200 mg Allergies Allergies Allergy/AdvReac Type Severity Reaction Status Date / Time [facility] Allergy Unknown RASH Verified 05/31/25 12:59 shrimp Allergy Anaphylaxis Verified 05/31/25 12:59 Assessment & Plan Assessment & Plan (1) Bipolar disorder: Status: Acute Code(s): F31.9 - Bipolar disorder, unspecified (2) PTSD (post-traumatic stress disorder): Status: Acute Code(s): F43.10 - Post-traumatic stress disorder, unspecified (3) Cocaine use disorder: Status: Acute Code(s): F14.10 - Cocaine abuse, uncomplicated (4) Alcohol use disorder: Status: Acute Code(s): F10.90 - Alcohol use, unspecified, uncomplicated Plan Patient is a 49 year old male with hx of Bipolar d/o, PTSD, cocaine use d/o and alcohol use d/o who self presented to ER d/t vague suicidal ideation with no plan secondary to increased depression and anxiety. Plan: CV 15 minute safety checks Continue home medications Obtain collateral Referral to outpatient psychiatric providers Encourage groups Discharge planning 06/04: Laying in bed. patient reports feeling the same as yesterday ; pt reports night dumont were not as intense . He is requesting to not be on multiple antihypertensives; DC clonidine. pt reports he plans on going to groups later today. denies SI/HI/VH/AH. Continue current tx plan. Patient educated on: diagnosis, medication risk/benefits and therapeutic strategies Reason for continued inpatient stay Substantial Risk for: med/psych decompensation Time Spent With Patient Time: Total time managing care of this patient today _20___ minutes.
[2025-06-04 12:01] VITALS: BP 132/82; PULSE 81
[2025-06-04 20:00] VITALS: BP 122/70; PULSE 74; RESP 18; TEMP 37.5; O2SAT 98
[2025-06-04 20:22] VITALS: BP 122/70
[2025-06-05 07:43] VITALS: BP 113/58; PULSE 60; RESP 20; TEMP 37; O2SAT 98
--- NOTE | 2025-06-05 07:56 | HO.PSYCHPN ---
Documented by User: Sue Finch NP 06/05/25 08:56 Subjective Subjective Date of Service: 06/05/25 Reason For Visit: SI Subjective Notes: Conditional Voluntary Interim History: Patient reports he laid in bed all day yesterday d/t feeling depressed but will get up and shower today . patient reports feeling anxious and depressed ; pt stated, I'm worried if my medications are going to work or not . denies SI/HI/VH/AH. Remeron increased to 30mg PO bedtime; pt aware. Medication Compliance: Yes Side effects from medications: No Attending Groups: No Mental Status Exam Mental Status Exam Narrative: Pt is alert and oriented; behavior is cooperative and calm; dressed in casual attire; mood is described as anxious and depressed ; eye contact appropriate; Speech is normal rate, volume and not pressured; thought process is organized and goal directed; Thought content is on tx; denies SI/HI/VH/AH. Diagnostics Vital Signs (24Hr): Vital Signs - 24 hr 06/04/25 08:36 06/04/25 12:01 06/04/25 20:00 Temperature 99.5 F Pulse Rate 81 74 Respiratory Rate 18 Blood Pressure 114/62 132/82 122/70 Pulse Oximetry 98 Oxygen Delivery Method Room Air 06/04/25 20:22 06/05/25 07:43 Temperature 98.6 F Pulse Rate 60 Respiratory Rate 20 Blood Pressure 122/70 113/58 L Pulse Oximetry 98 Oxygen Delivery Method Room Air BMI result Body Mass Index 30.7 Labs 05/31/25 13:29 06/04/25 07:32 Labs: Laboratory Results - last 48 hr 06/04/25 07:32 Sodium 143 Potassium 4.6 Chloride 104 Carbon Dioxide 31 H Anion Gap 13 BUN 21 H Creatinine 1.10 Estim Creat Clear Calc 97.7 Estimated GFR > 60 Random Glucose 102 Estimat Average Glucose 108 Hemoglobin A1c % 5.4 Calcium 9.4 Total Bilirubin 0.4 AST 22 ALT 29 Alkaline Phosphatase 59 Total Protein 6.7 Albumin 3.9 Triglycerides 145 Cholesterol 151 LDL Cholesterol, Calc 91 HDL Cholesterol 31 L Medications Medications Current Medications Acetaminophen (Acetaminophen 325 Mg Tablet) 650 mg PO Q6H PRN PRN Reason: Headache/Pain, Scale 1-10 Last Admin: 06/03/25 20:17 Dose: 650 mg Al Hydroxide/Mg Hydroxide (Magnesium Hydrox/Alum Hydrox 30 Ml Oral.Susp) 30 ml PO Q6H PRN PRN Reason: Heartburn/Nausea Divalproex Sodium (Divalproex Sodium 500 Mg Tablet.Dr) 1,000 mg PO BEDTIME YOBANI Last Admin: 06/04/25 20:22 Dose: 1,000 mg Hydroxyzine HCl (Hydroxyzine Hcl 50 Mg Tablet) 50 mg PO Q4H PRN PRN Reason: Anxiety Last Admin: 06/04/25 16:31 Dose: 50 mg Lorazepam (Lorazepam 1 Mg Tablet) 1 mg PO DAILY PRN PRN Reason: Anxiety Last Admin: 06/04/25 08:43 Dose: 1 mg Losartan Potassium (Losartan Potassium 25 Mg Tablet) 25 mg PO DAILY YOBANI; Protocol Last Admin: 06/04/25 08:36 Dose: 25 mg Lurasidone HCl (Lurasidone Hcl 40 Mg Tablet) 40 mg PO DAILY@1700 YOBANI Last Admin: 06/04/25 17:10 Dose: 40 mg Magnesium Hydroxide (Milk Of Magnesia 30 Ml Oral.Susp) 30 ml PO DAILY PRN PRN Reason: Constipation Melatonin (Melatonin 3 Mg Tablet) 6 mg PO BEDTIME YOBANI Last Admin: 06/04/25 20:22 Dose: 6 mg Mirtazapine (Mirtazapine 15 Mg Tablet) 15 mg PO BEDTIME YOBANI Last Admin: 06/04/25 20:21 Dose: 15 mg Nicotine Polacrilex (Nicotine Polacrilex 2 Mg Gum) 4 mg BUCCAL Q2H PRN PRN Reason: Nicotine Cravings Prazosin HCl (Prazosin Hcl 1 Mg Capsule) 1 mg PO BEDTIME YOBANI; Protocol Last Admin: 06/04/25 20:22 Dose: 1 mg Propranolol HCl (Propranolol Hcl 20 Mg Tablet) 20 mg PO BID PRN; Protocol PRN Reason: Anxiety Last Admin: 06/04/25 12:01 Dose: 20 mg Trazodone HCl (Trazodone Hcl 100 Mg Tablet) 200 mg PO BEDTIME YOBANI Last Admin: 06/04/25 20:21 Dose: 200 mg Allergies Allergies Allergy/AdvReac Type Severity Reaction Status Date / Time duloxetine (From CYMBALTA) Allergy Unknown RASH Verified 05/31/25 12:59 shrimp Allergy Anaphylaxis Verified 05/31/25 12:59 Assessment & Plan Assessment & Plan (1) Bipolar disorder: Status: Acute Code(s): F31.9 - Bipolar disorder, unspecified (2) PTSD (post-traumatic stress disorder): Status: Acute Code(s): F43.10 - Post-traumatic stress disorder, unspecified (3) Cocaine use disorder: Status: Acute Code(s): F14.10 - Cocaine abuse, uncomplicated (4) Alcohol use disorder: Status: Acute Code(s): F10.90 - Alcohol use, unspecified, uncomplicated Plan Patient is a 49 year old male with hx of Bipolar d/o, PTSD, cocaine use d/o and alcohol use d/o who self presented to ER d/t vague suicidal ideation with no plan secondary to increased depression and anxiety. Plan: CV 15 minute safety checks Continue home medications Obtain collateral Referral to outpatient psychiatric providers Encourage groups Discharge planning 06/04: Laying in bed. patient reports feeling the same as yesterday ; pt reports night dumont were not as intense . He is requesting to not be on multiple antihypertensives; DC clonidine. pt reports he plans on going to groups later today. denies SI/HI/VH/AH. Continue current tx plan. 06/05: Patient reports he laid in bed all day yesterday d/t feeling depressed but will get up and shower today . patient reports feeling anxious and depressed ; pt stated, I'm worried if my medications are going to work or not . denies SI/HI/VH/AH. Remeron increased to 30mg PO bedtime; pt aware. Patient educated on: diagnosis, medication risk/benefits and therapeutic strategies Reason for continued inpatient stay Substantial Risk for: med/psych decompensation Time Spent With Patient Time: Total time managing care of this patient today _20___ minutes. Documented by User: Anton Luther MD 06/05/25 12:14 Subjective Subjective Reason For Visit: SI Diagnostics Labs 05/31/25 13:29 06/04/25 07:32 Assessment & Plan Assessment & Plan (1) Bipolar disorder: Status: Acute Code(s): F31.9 - Bipolar disorder, unspecified (2) PTSD (post-traumatic stress disorder): Status: Acute Code(s): F43.10 - Post-traumatic stress disorder, unspecified (3) Cocaine use disorder: Status: Acute Code(s): F14.10 - Cocaine abuse, uncomplicated (4) Alcohol use disorder: Status: Acute Code(s): F10.90 - Alcohol use, unspecified, uncomplicated Plan Patient is a 49 year old male with hx of Bipolar d/o, PTSD, cocaine use d/o and alcohol use d/o who self presented to ER d/t vague suicidal ideation with no plan secondary to increased depression and anxiety. Plan: CV 15 minute safety checks Continue home medications Obtain collateral Referral to outpatient psychiatric providers Encourage groups Discharge planning 06/04: Laying in bed. patient reports feeling the same as yesterday ; pt reports night dumont were not as intense . He is requesting to not be on multiple antihypertensives; DC clonidine. pt reports he plans on going to groups later today. denies SI/HI/VH/AH. Continue current tx plan. 06/05: Patient reports he laid in bed all day yesterday d/t feeling depressed but will get up and shower today . patient reports feeling anxious and depressed ; pt stated, I'm worried if my medications are going to work or not . denies SI/HI/VH/AH. Remeron increased to 30mg PO bedtime; pt aware. latuda increased to 60 mg @5pm per pt request.
[2025-06-05 16:17] VITALS: BP 126/82; PULSE 82; RESP 16; O2SAT 99
[2025-06-05 20:00] VITALS: BP 124/70; PULSE 70; RESP 16; TEMP 36.6; O2SAT 97
[2025-06-05 20:29] VITALS: BP 124/70
[2025-06-06 07:00] VITALS: BMI 31.1
[2025-06-06 08:00] VITALS: BP 131/70; PULSE 50; RESP 20; TEMP 36.8; O2SAT 99
[2025-06-06 08:11] VITALS: BP 131/70
[2025-06-06 16:22] VITALS: BP 123/81; PULSE 73
--- NOTE | 2025-06-06 16:50 | HO.PSYCHPN ---
Subjective Subjective Date of Service: 06/06/25 Reason For Visit: SI Subjective Notes: Conditional Voluntary Healthcare Proxy: No Guardianship: No Medical Problems Affecting Mental Status: No Interim History: Medical record and nursing notes reviewed; case discussed during rounds with team/nursing staff, and met with patient for supportive therapy/psychoeducation, as well as medication management. Patient slept for 7 hours last night, was medication compliant. Denies side effects. Reports that he has vivid dreams and PTSD symptoms last night. He shares a lot of stories related to family history, relationship issues, and many lost in the family in a short period of time. Reported that he still loves his ex- as she was his 1st love even though she got to his friend after divorce. Patient educate on how depression and anxiety affected by other factors and medication is just small part of solution. Therefore he needs more support in community and family, spiritism community, and motivated to getting better, learning coping skills from groups. He is encouraged to get up and be more visible on the unit. He is lying in bed and reading a book. Reports anxiety and depression 8-07/31. Denies suicidal thoughts or other safety concerns, denies hallucinations. Medication Compliance: Yes Side effects from medications: No Attending Groups: No Review of Systems Acute medical concerns: No Medical Review of Systems: unchanged Review of Systems Review of Systems Constitutional : No Fever, No Chills ENT/Mouth : No Ear Pain, No Nasal Congestion, No sore throat Eyes: No Eye Pain, No Swelling, No Redness Cardiovascular : No Chest Pain, No SOB Respiratory : No Cough, No Sputum, No Dyspnea Gastrointestinal : No Nausea, No Vomiting, No Diarrhea, No Hematochezia, No Melena Genitourinary : No Dysuria, No Urinary Frequency, No Hematuria Musculoskeletal : No Myalgias Skin : No Skin Lesions, No rash Neuro : No Weakness, No Numbness, No Paresthesias, No Dizziness, No Headache Psych : positive Anxiety, positive Depression. All other systems reviewed and are negative Mental Status Exam Mental Status Exam Narrative: Pt is alert and oriented; behavior is cooperative and calm; dressed in casual attire; no ADLs issues, mood is described as anxious and depressed , isolated himself in bed; eye contact appropriate; Speech is normal rate, volume and not pressured; thought process is organized and goal directed; Thought content is on tx; denies SI/HI/VH/AH. Insight and judgment fair Diagnostics Vital Signs (24Hr): Vital Signs - 24 hr 06/05/25 20:00 06/05/25 20:29 06/06/25 08:00 Temperature 97.8 F 98.3 F Pulse Rate 70 50 Respiratory Rate 16 20 Blood Pressure 124/70 124/70 131/70 Pulse Oximetry 97 99 Oxygen Delivery Method Room Air Room Air 06/06/25 08:11 06/06/25 16:22 Temperature Pulse Rate 73 Respiratory Rate Blood Pressure 131/70 123/81 Pulse Oximetry Oxygen Delivery Method BMI result Body Mass Index 31.1 Labs 05/31/25 13:29 06/04/25 07:32 Medications Medications Current Medications Acetaminophen (Acetaminophen 325 Mg Tablet) 650 mg PO Q6H PRN PRN Reason: Headache/Pain, Scale 1-10 Last Admin: 06/05/25 18:42 Dose: 650 mg Al Hydroxide/Mg Hydroxide (Magnesium Hydrox/Alum Hydrox 30 Ml Oral.Susp) 30 ml PO Q6H PRN PRN Reason: Heartburn/Nausea Divalproex Sodium (Divalproex Sodium 500 Mg Tablet.Dr) 1,000 mg PO BEDTIME YOBANI Last Admin: 06/05/25 20:29 Dose: 1,000 mg Hydroxyzine HCl (Hydroxyzine Hcl 50 Mg Tablet) 50 mg PO Q4H PRN PRN Reason: Anxiety Last Admin: 06/06/25 16:22 Dose: 50 mg Lorazepam (Lorazepam 1 Mg Tablet) 1 mg PO DAILY PRN PRN Reason: Anxiety Last Admin: 06/06/25 08:11 Dose: 1 mg Losartan Potassium (Losartan Potassium 25 Mg Tablet) 25 mg PO DAILY YOBANI; Protocol Last Admin: 06/06/25 08:11 Dose: 25 mg Lurasidone HCl (Lurasidone Hcl 20 Mg Tablet) 60 mg PO DAILY@1700 YOBANI Last Admin: 06/05/25 17:36 Dose: 60 mg Magnesium Hydroxide (Milk Of Magnesia 30 Ml Oral.Susp) 30 ml PO DAILY PRN PRN Reason: Constipation Melatonin (Melatonin 3 Mg Tablet) 6 mg PO BEDTIME YOBANI Last Admin: 06/05/25 20:28 Dose: 6 mg Mirtazapine (Mirtazapine 30 Mg Tablet) 30 mg PO BEDTIME YOBANI Last Admin: 06/05/25 20:29 Dose: 30 mg Nicotine Polacrilex (Nicotine Polacrilex 2 Mg Gum) 4 mg BUCCAL Q2H PRN PRN Reason: Nicotine Cravings Prazosin HCl (Prazosin Hcl 1 Mg Capsule) 1 mg PO BEDTIME YOBANI; Protocol Last Admin: 06/05/25 20:29 Dose: 1 mg Propranolol HCl (Propranolol Hcl 20 Mg Tablet) 20 mg PO BID PRN; Protocol PRN Reason: Anxiety Last Admin: 06/06/25 16:22 Dose: 20 mg Trazodone HCl (Trazodone Hcl 100 Mg Tablet) 200 mg PO BEDTIME YOBANI Last Admin: 06/05/25 20:28 Dose: 200 mg Allergies Allergies Allergy/AdvReac Type Severity Reaction Status Date / Time duloxetine (From CYMBALTA) Allergy Unknown RASH Verified 05/31/25 12:59 shrimp Allergy Anaphylaxis Verified 05/31/25 12:59 Assessment & Plan Assessment & Plan (1) Bipolar disorder: Status: Acute Code(s): F31.9 - Bipolar disorder, unspecified (2) PTSD (post-traumatic stress disorder): Status: Acute Code(s): F43.10 - Post-traumatic stress disorder, unspecified (3) Cocaine use disorder: Status: Acute Code(s): F14.10 - Cocaine abuse, uncomplicated (4) Alcohol use disorder: Status: Acute Code(s): F10.90 - Alcohol use, unspecified, uncomplicated Plan Patient is a 49 year old male with hx of Bipolar d/o, PTSD, cocaine use d/o and alcohol use d/o who self presented to ER d/t vague suicidal ideation with no plan secondary to increased depression and anxiety. Plan: CV 15 minute safety checks Continue home medications Obtain collateral Referral to outpatient psychiatric providers Encourage groups Discharge planning 06/04: Laying in bed. patient reports feeling the same as yesterday ; pt reports night dumont were not as intense . He is requesting to not be on multiple antihypertensives; DC clonidine. pt reports he plans on going to groups later today. denies SI/HI/VH/AH. Continue current tx plan. 06/05: Patient reports he laid in bed all day yesterday d/t feeling depressed but will get up and shower today . patient reports feeling anxious and depressed ; pt stated, I'm worried if my medications are going to work or not . denies SI/HI/VH/AH. Remeron increased to 30mg PO bedtime; pt aware. latuda increased to 60 mg @5pm per pt request. 06/06/25: Slept for 7 hours, medication and meals compliant. Isolated himself in bed, reading attempts. Appeared to be depressed and anxious. Educate patient on coping skills, and contributing factors to his depression. Medication is not the only solution for his anxiety and depression. He needs to motivate and engaged in community- attended groups and learn some more coping skills. We also discussed spiritual connection to his spiritism he find that helpful for his mental health as well. No suicidal thoughts homicidal thoughts. No hallucinations. Do not appear to be psychotic. Reason for continued inpatient stay Substantial Risk for: med/psych decompensation Time Spent With Patient Time: Total time managing care of this patient today ____ minutes.
[2025-06-06 20:00] VITALS: BP 132/81; PULSE 64; RESP 16; TEMP 36.9; O2SAT 97
--- NOTE | 2025-06-07 | ECG_ITS ---
Test Reason : Chest pain sometimes . On pschotropic meds Blood Pressure : */* mmHG Vent. Rate : 67 BPM Atrial Rate : 67 BPM P-R Int : 150 ms QRS Dur : 96 ms QT Int : 404 ms P-R-T Axes : 38 43 40 degrees QTcB Int : 426 ms Normal sinus rhythm Normal ECG When compared with ECG of 03-Jun-2025 08:32, No significant change was found Referred By: Syeda Bueno Electronically Signed By: LIBBY AVILA
[2025-06-07 08:00] VITALS: BP 123/58; PULSE 69; RESP 18; TEMP 36.4; O2SAT 94
[2025-06-07 08:40] VITALS: BP 123/58
--- NOTE | 2025-06-07 11:39 | HO.PSYCHPN ---
Subjective Subjective Date of Service: 06/07/25 Reason For Visit: SI Subjective Notes: Conditional Voluntary Healthcare Proxy: No Guardianship: No Medical Problems Affecting Mental Status: No Interim History: Medical record and nursing notes reviewed; case discussed during rounds with team/nursing staff, and met with patient for supportive therapy/psychoeducation, as well as medication management. Patient slept for 8 hours, was medication compliant. General denies side effects, over reports he feels so tired in the morning. Discussed with him for reduce some of the medication for sleep at night. He agreed to get melatonin off the schedule but put on as-needed. He also agreed to go up on Depakote another 250 mg as the level done at the beginning of the month on the low and and with symptomatic depression he would be benefit on dose increased to target the depressive symptoms. He also came to the nurse station asking for Ativan. Reported that he feels like pounding on his hard and sometimes feeling chest pain. EKG ordered. Patient is receptive to the plan. Continue to reports anxiety and depression same as yesterday. Continue to educate patient on coping skills, motivated to be out more on the unit and attended groups. Medication Compliance: Yes Side effects from medications: No (reports sometimes experience chest pain. Feel tired and sedated in AM) Attending Groups: Intermittent (With encouragement ) Review of Systems Acute medical concerns: No Medical Review of Systems: unchanged Review of Systems Review of Systems Constitutional : No Fever, No Chills ENT/Mouth : No Ear Pain, No Nasal Congestion, No sore throat Eyes: No Eye Pain, No Swelling, No Redness Cardiovascular : No Chest Pain, No SOB at this current time. However, report sometimes expereicne chest pain. EKG ordered on 06/07/25: Normal sinus rhythm. Normal EKG Respiratory : No Cough, No Sputum, No Dyspnea Gastrointestinal : No Nausea, No Vomiting, No Diarrhea, No Hematochezia, No Melena Genitourinary : No Dysuria, No Urinary Frequency, No Hematuria Musculoskeletal : No Myalgias Skin : No Skin Lesions, No rash Neuro : No Weakness, No Numbness, No Paresthesias, No Dizziness, No Headache Psych : positive Anxiety, positive Depression. All other systems reviewed and are negative Mental Status Exam Mental Status Exam Narrative: Pt is alert and oriented; behavior is cooperative and calm; dressed in casual attire; no ADLs issues, mood is described as anxious and depressed , isolated himself in bed; but more on the unit later on of the day, eye contact appropriate; Speech is normal rate, volume and not pressured; thought process is organized and goal directed; Thought content is on tx; denies SI/HI/VH/AH. Insight and judgment fair Diagnostics Vital Signs (24Hr): Vital Signs - 24 hr 06/06/25 16:22 06/06/25 20:00 06/07/25 08:00 Temperature 98.5 F 97.6 F Pulse Rate 73 64 69 Respiratory Rate 16 18 Blood Pressure 123/81 132/81 123/58 L Pulse Oximetry 97 94 Oxygen Delivery Method Room Air Room Air 06/07/25 08:40 Temperature Pulse Rate Respiratory Rate Blood Pressure 123/58 L Pulse Oximetry Oxygen Delivery Method BMI result Body Mass Index 31.1 Labs 05/31/25 13:29 06/04/25 07:32 EKG EKG: reviewed EKG Comment: Within normal limit. Normal sinus rhythm. Normal EKG Medications Medications Current Medications Acetaminophen (Acetaminophen 325 Mg Tablet) 650 mg PO Q6H PRN PRN Reason: Headache/Pain, Scale 1-10 Last Admin: 06/05/25 18:42 Dose: 650 mg Al Hydroxide/Mg Hydroxide (Magnesium Hydrox/Alum Hydrox 30 Ml Oral.Susp) 30 ml PO Q6H PRN PRN Reason: Heartburn/Nausea Divalproex Sodium (Divalproex Sodium 500 Mg Tablet.) 1,000 mg PO BEDTIME YOBANI Last Admin: 06/06/25 20:25 Dose: 1,000 mg Hydroxyzine HCl (Hydroxyzine Hcl 50 Mg Tablet) 50 mg PO Q4H PRN PRN Reason: Anxiety Last Admin: 06/06/25 16:22 Dose: 50 mg Lorazepam (Lorazepam 1 Mg Tablet) 1 mg PO DAILY PRN PRN Reason: Anxiety Last Admin: 06/06/25 08:11 Dose: 1 mg Losartan Potassium (Losartan Potassium 25 Mg Tablet) 25 mg PO DAILY [facility]; Protocol Last Admin: 06/07/25 08:40 Dose: 25 mg Lurasidone HCl (Lurasidone Hcl 20 Mg Tablet) 60 mg PO DAILY@1700 YOBANI Last Admin: 06/06/25 17:07 Dose: 60 mg Magnesium Hydroxide (Milk Of Magnesia 30 Ml Oral.Susp) 30 ml PO DAILY PRN PRN Reason: Constipation Melatonin (Melatonin 3 Mg Tablet) 6 mg PO BEDTIME PRN PRN Reason: insomnia Mirtazapine (Mirtazapine 30 Mg Tablet) 30 mg PO BEDTIME YOBANI Last Admin: 06/06/25 20:26 Dose: 30 mg Nicotine Polacrilex (Nicotine Polacrilex 2 Mg Gum) 4 mg BUCCAL Q2H PRN PRN Reason: Nicotine Cravings Prazosin HCl (Prazosin Hcl 1 Mg Capsule) 1 mg PO BEDTIME YOBANI; Protocol Last Admin: 06/06/25 20:26 Dose: 1 mg Propranolol HCl (Propranolol Hcl 20 Mg Tablet) 20 mg PO BID PRN; Protocol PRN Reason: Anxiety Last Admin: 06/06/25 16:22 Dose: 20 mg Trazodone HCl (Trazodone Hcl 100 Mg Tablet) 200 mg PO BEDTIME YOBANI Last Admin: 06/06/25 20:25 Dose: 200 mg Valproic Acid (Valproic Acid 250 Mg Capsule) 250 mg PO DAILY YOBANI Allergies Allergies Allergy/AdvReac Type Severity Reaction Status Date / Time duloxetine (From CYMBALTA) Allergy Unknown RASH Verified 05/31/25 12:59 shrimp Allergy Anaphylaxis Verified 05/31/25 12:59 Assessment & Plan Assessment & Plan (1) Bipolar disorder: Status: Acute Code(s): F31.9 - Bipolar disorder, unspecified (2) PTSD (post-traumatic stress disorder): Status: Acute Code(s): F43.10 - Post-traumatic stress disorder, unspecified (3) Cocaine use disorder: Status: Acute Code(s): F14.10 - Cocaine abuse, uncomplicated (4) Alcohol use disorder: Status: Acute Code(s): F10.90 - Alcohol use, unspecified, uncomplicated Plan Patient is a 49 year old male with hx of Bipolar d/o, PTSD, cocaine use d/o and alcohol use d/o who self presented to ER d/t vague suicidal ideation with no plan secondary to increased depression and anxiety. Plan: CV 15 minute safety checks Continue home medications Obtain collateral Referral to outpatient psychiatric providers Encourage groups Discharge planning 06/04: Laying in bed. patient reports feeling the same as yesterday ; pt reports night dumont were not as intense . He is requesting to not be on multiple antihypertensives; DC clonidine. pt reports he plans on going to groups later today. denies SI/HI/VH/AH. Continue current tx plan. 06/05: Patient reports he laid in bed all day yesterday d/t feeling depressed but will get up and shower today . patient reports feeling anxious and depressed ; pt stated, I'm worried if my medications are going to work or not . denies SI/HI/VH/AH. Remeron increased to 30mg PO bedtime; pt aware. latuda increased to 60 mg @5pm per pt request. 06/06/25: Slept for 7 hours, medication and meals compliant. Isolated himself in bed, reading attempts. Appeared to be depressed and anxious. Educate patient on coping skills, and contributing factors to his depression. Medication is not the only solution for his anxiety and depression. He needs to motivate and engaged in community- attended groups and learn some more coping skills. We also discussed spiritual connection to his orthodox he find that helpful for his mental health as well. No suicidal thoughts homicidal thoughts. No hallucinations. Do not appear to be psychotic. 06/07/25: Slept for 8 hours, self reports sleep was interrupted as roommate was coughing. Reports sometimes experienced chest pain. EKG done with normal sinus rhythm, normal EKG. Increase Depakote up to another 250 in the morning. We will recheck level in 5 days as he is still in severe depressed. Melatonin move to as needed. He appeared to be over medicated overnight. If continue to be sedated until late in the morning. Can reduce trazodone down to 150 instead of to 200mg over the weekends. Denies safety concerns, denies voices. Slightly more motivated to be out on the unit. He reports that he was reading the Bible in the sensory room and spent sometime in there yesterday. He agrees to go to at least one group today Patient educated on: diagnosis, medication risk/benefits and therapeutic strategies Informed Consent: understands and further education needed Reason for continued inpatient stay Substantial Risk for: med/psych decompensation Time Spent With Patient Time: Total time managing care of this patient today ____ minutes.
[2025-06-07 18:04] VITALS: BP 153/95; PULSE 93
[2025-06-07 20:04] VITALS: BP 128/77; PULSE 87; RESP 16; TEMP 36.2; O2SAT 97
[2025-06-08 07:32] VITALS: BP 139/77; PULSE 65; RESP 16; TEMP 36.2; O2SAT 97
--- NOTE | 2025-06-08 19:01 | HO.PSYCHPN ---
Subjective Subjective Date of Service: 06/08/25 Reason For Visit: SI Subjective Notes: Conditional Voluntary Interim History: Patient has been isolative to his room today. On approach, he states that he is feeling more depressed which he attributes to the Depakote. General frustrations about symptoms that seem to be targeted towards his care. Staff reporting that he has been requesting Ativan frequently, however, he did not do that with ticket writer today. Medication Compliance: Yes Side effects from medications: No Attending Groups: No Review of Systems Acute medical concerns: No Medical Review of Systems: unchanged Mental Status Exam Mental Status Exam Narrative: Appearance: hospital attire, disheveled Behavior: cooperative with encounter Orientation: alert, generally oriented to person, place, time Memory: grossly intact to recent/remote events Attention: able to attend to the encounter discussion Psychomotor Function: no agitation or slowing; no abnormal gestures or movements Speech: normal rate, tone, volume Mood: depressed Affect: irritable Thought Process: coherent Thought Content: denies SI/HI Hallucinations: denies AVH delusions: none evinced Insight: mild impairment Judgment: mild impairment Impulsivity: none noted Diagnostics Vital Signs (24Hr): Vital Signs - 24 hr 06/07/25 20:04 06/08/25 07:32 Temperature 97.1 F 97.2 F Pulse Rate 87 65 Respiratory Rate 16 16 Blood Pressure 128/77 139/77 Pulse Oximetry 97 97 Oxygen Delivery Method Room Air Room Air BMI result Body Mass Index 31.1 Labs 05/31/25 13:29 06/04/25 07:32 Medications Medications Current Medications Acetaminophen (Acetaminophen 325 Mg Tablet) 650 mg PO Q6H PRN PRN Reason: Headache/Pain, Scale 1-10 Last Admin: 06/05/25 18:42 Dose: 650 mg Al Hydroxide/Mg Hydroxide (Magnesium Hydrox/Alum Hydrox 30 Ml Oral.Susp) 30 ml PO Q6H PRN PRN Reason: Heartburn/Nausea Divalproex Sodium (Divalproex Sodium 500 Mg Tablet.) 1,000 mg PO BEDTIME YOBANI Last Admin: 06/07/25 20:48 Dose: 1,000 mg Hydroxyzine HCl (Hydroxyzine Hcl 50 Mg Tablet) 50 mg PO Q4H PRN PRN Reason: Anxiety Last Admin: 06/08/25 08:31 Dose: 50 mg Lorazepam (Lorazepam 1 Mg Tablet) 1 mg PO DAILY PRN PRN Reason: Anxiety Last Admin: 06/08/25 12:35 Dose: 1 mg Losartan Potassium (Losartan Potassium 25 Mg Tablet) 25 mg PO DAILY YOBANI; Protocol Last Admin: 06/08/25 08:28 Dose: 25 mg Lurasidone HCl (Lurasidone Hcl 20 Mg Tablet) 60 mg PO DAILY@1700 YOBANI Last Admin: 06/08/25 17:27 Dose: 60 mg Magnesium Hydroxide (Milk Of Magnesia 30 Ml Oral.Susp) 30 ml PO DAILY PRN PRN Reason: Constipation Melatonin (Melatonin 3 Mg Tablet) 6 mg PO BEDTIME PRN PRN Reason: insomnia Last Admin: 06/07/25 22:25 Dose: 6 mg Mirtazapine (Mirtazapine 30 Mg Tablet) 30 mg PO BEDTIME YOBANI Last Admin: 06/07/25 20:49 Dose: 30 mg Nicotine Polacrilex (Nicotine Polacrilex 2 Mg Gum) 4 mg BUCCAL Q2H PRN PRN Reason: Nicotine Cravings Prazosin HCl (Prazosin Hcl 1 Mg Capsule) 1 mg PO BEDTIME YOBANI; Protocol Last Admin: 06/07/25 20:48 Dose: 1 mg Propranolol HCl (Propranolol Hcl 20 Mg Tablet) 20 mg PO BID PRN; Protocol PRN Reason: Anxiety Last Admin: 06/07/25 18:04 Dose: 20 mg Trazodone HCl (Trazodone Hcl 100 Mg Tablet) 200 mg PO BEDTIME YOBANI Last Admin: 06/07/25 20:48 Dose: 200 mg Valproic Acid (Valproic Acid 250 Mg Capsule) 250 mg PO DAILY YOBANI Last Admin: 06/08/25 08:29 Dose: 250 mg Allergies Allergies Allergy/AdvReac Type Severity Reaction Status Date / Time duloxetine (From CYMBALTA) Allergy Unknown RASH Verified 05/31/25 12:59 shrimp Allergy Anaphylaxis Verified 05/31/25 12:59 Assessment & Plan Assessment & Plan (1) Bipolar disorder: Status: Acute Code(s): F31.9 - Bipolar disorder, unspecified (2) PTSD (post-traumatic stress disorder): Status: Acute Code(s): F43.10 - Post-traumatic stress disorder, unspecified (3) Cocaine use disorder: Status: Acute Code(s): F14.10 - Cocaine abuse, uncomplicated (4) Alcohol use disorder: Status: Acute Code(s): F10.90 - Alcohol use, unspecified, uncomplicated Plan Patient is a 49 year old male with hx of Bipolar d/o, PTSD, cocaine use d/o and alcohol use d/o who self presented to ER d/t vague suicidal ideation with no plan secondary to increased depression and anxiety. Plan: CV 15 minute safety checks Continue home medications Obtain collateral Referral to outpatient psychiatric providers Encourage groups Discharge planning 06/04: Laying in bed. patient reports feeling the same as yesterday ; pt reports night dumont were not as intense . He is requesting to not be on multiple antihypertensives; DC clonidine. pt reports he plans on going to groups later today. denies SI/HI/VH/AH. Continue current tx plan. 06/05: Patient reports he laid in bed all day yesterday d/t feeling depressed but will get up and shower today . patient reports feeling anxious and depressed ; pt stated, I'm worried if my medications are going to work or not . denies SI/HI/VH/AH. Remeron increased to 30mg PO bedtime; pt aware. latuda increased to 60 mg @5pm per pt request. 06/06/25: Slept for 7 hours, medication and meals compliant. Isolated himself in bed, reading attempts. Appeared to be depressed and anxious. Educate patient on coping skills, and contributing factors to his depression. Medication is not the only solution for his anxiety and depression. He needs to motivate and engaged in community- attended groups and learn some more coping skills. We also discussed spiritual connection to his anabaptist he find that helpful for his mental health as well. No suicidal thoughts homicidal thoughts. No hallucinations. Do not appear to be psychotic. 06/07/25: Slept for 8 hours, self reports sleep was interrupted as roommate was coughing. Reports sometimes experienced chest pain. EKG done with normal sinus rhythm, normal EKG. Increase Depakote up to another 250 in the morning. We will recheck level in 5 days as he is still in severe depressed. Melatonin move to as needed. He appeared to be over medicated overnight. If continue to be sedated until late in the morning. Can reduce trazodone down to 150 instead of to 200mg over the weekends. Denies safety concerns, denies voices. Slightly more motivated to be out on the unit. He reports that he was reading the Bible in the sensory room and spent sometime in there yesterday. He agrees to go to at least one group today 06/08: asking for ativan per staff; reports worsening depression. Reason for continued inpatient stay Substantial Risk for: harm to self and inability to function Time Spent With Patient Time: Total time managing care of this patient today ____ minutes.
[2025-06-08 19:48] VITALS: BP 133/77; PULSE 92; RESP 16; TEMP 37; O2SAT 95
[2025-06-09 08:00] VITALS: BP 141/83; PULSE 73; RESP 16; TEMP 36.8; O2SAT 98
--- NOTE | 2025-06-09 17:35 | P.PNPSI_ITS ---
Subjective Subjective Date of Service: 06/09/25 Reason For Visit: SI Subjective Notes: Conditional Voluntary Interim History: Patient again was found in his room today. This time he was more awake and alert. He stated that he was feeling better and was not experiencing the same level of depression that he perceived yesterday. He reported vivid dreams. He's currently on 1 mg of prazosin at bedtime. He hasn't been attending groups, and was encouraged in this regard. Medication Compliance: Yes Side effects from medications: No Attending Groups: No Review of Systems Acute medical concerns: No Medical Review of Systems: unchanged Mental Status Exam Mental Status Exam Narrative: Appearance: casual attire, disheveled Behavior: cooperative with encounter Orientation: alert, generally oriented to person, place, time Memory: grossly intact to recent/remote events Attention: able to attend to the encounter discussion Psychomotor Function: no agitation or slowing; no abnormal gestures or movements Speech: normal rate, tone, volume Mood: okay Affect: mild blunting Thought Process: coherent Thought Content: themes of external agency of medications; denies SI/HI Hallucinations: denies AVH delusions: none evinced Insight: mild impairment Judgment: mild impairment Impulsivity: none noted Diagnostics Vital Signs (24Hr): Vital Signs - 24 hr 06/08/25 19:48 06/09/25 08:00 Temperature 98.6 F 98.2 F Pulse Rate 92 73 Respiratory Rate 16 16 Blood Pressure 133/77 141/83 H Pulse Oximetry 95 98 Oxygen Delivery Method Room Air Room Air BMI result Body Mass Index 31.1 Labs 05/31/25 13:29 06/04/25 07:32 Medications Medications Current Medications Acetaminophen (Acetaminophen 325 Mg Tablet) 650 mg PO Q6H PRN PRN Reason: Headache/Pain, Scale 1-10 Last Admin: 06/09/25 08:50 Dose: 650 mg Al Hydroxide/Mg Hydroxide (Magnesium Hydrox/Alum Hydrox 30 Ml Oral.Susp) 30 ml PO Q6H PRN PRN Reason: Heartburn/Nausea Divalproex Sodium (Divalproex Sodium 500 Mg Tablet.Dr) 1,000 mg PO BEDTIME YOBANI Last Admin: 06/08/25 20:44 Dose: 1,000 mg Hydroxyzine HCl (Hydroxyzine Hcl 50 Mg Tablet) 50 mg PO Q4H PRN PRN Reason: Anxiety Last Admin: 06/09/25 14:12 Dose: 50 mg Lorazepam (Lorazepam 1 Mg Tablet) 1 mg PO DAILY PRN PRN Reason: Anxiety Last Admin: 06/09/25 08:50 Dose: 1 mg Losartan Potassium (Losartan Potassium 25 Mg Tablet) 25 mg PO DAILY YOBANI; Protocol Last Admin: 06/09/25 08:47 Dose: 25 mg Lurasidone HCl (Lurasidone Hcl 20 Mg Tablet) 60 mg PO DAILY@1700 YOBANI Last Admin: 06/09/25 17:19 Dose: 60 mg Magnesium Hydroxide (Milk Of Magnesia 30 Ml Oral.Susp) 30 ml PO DAILY PRN PRN Reason: Constipation Melatonin (Melatonin 3 Mg Tablet) 6 mg PO BEDTIME PRN PRN Reason: insomnia Last Admin: 06/08/25 20:44 Dose: 6 mg Mirtazapine (Mirtazapine 30 Mg Tablet) 30 mg PO BEDTIME YOBANI Last Admin: 06/08/25 20:44 Dose: 30 mg Nicotine Polacrilex (Nicotine Polacrilex 2 Mg Gum) 4 mg BUCCAL Q2H PRN PRN Reason: Nicotine Cravings Prazosin HCl (Prazosin Hcl 1 Mg Capsule) 1 mg PO BEDTIME YOBANI; Protocol Last Admin: 06/08/25 20:44 Dose: 1 mg Propranolol HCl (Propranolol Hcl 20 Mg Tablet) 20 mg PO BID PRN; Protocol PRN Reason: Anxiety Last Admin: 06/07/25 18:04 Dose: 20 mg Trazodone HCl (Trazodone Hcl 100 Mg Tablet) 200 mg PO BEDTIME YOBANI Last Admin: 06/08/25 20:44 Dose: 200 mg Valproic Acid (Valproic Acid 250 Mg Capsule) 250 mg PO DAILY COUNTS INCLUDE 234 BEDS AT THE [facility] Last Admin: 06/09/25 08:47 Dose: 250 mg Allergies Allergies Allergy/AdvReac Type Severity Reaction Status Date / Time duloxetine (From CYMBALTA) Allergy Unknown RASH Verified 05/31/25 12:59 shrimp Allergy Anaphylaxis Verified 05/31/25 12:59 Assessment & Plan Assessment & Plan (1) Bipolar disorder: Status: Acute Code(s): F31.9 - Bipolar disorder, unspecified (2) PTSD (post-traumatic stress disorder): Status: Acute Code(s): F43.10 - Post-traumatic stress disorder, unspecified (3) Cocaine use disorder: Status: Acute Code(s): F14.10 - Cocaine abuse, uncomplicated (4) Alcohol use disorder: Status: Acute Code(s): F10.90 - Alcohol use, unspecified, uncomplicated Plan Patient is a 49 year old male with hx of Bipolar d/o, PTSD, cocaine use d/o and alcohol use d/o who self presented to ER d/t vague suicidal ideation with no plan secondary to increased depression and anxiety. Plan: CV 15 minute safety checks Continue home medications Obtain collateral Referral to outpatient psychiatric providers Encourage groups Discharge planning 06/04: Laying in bed. patient reports feeling the same as yesterday ; pt reports night dumont were not as intense . He is requesting to not be on multiple antihypertensives; DC clonidine. pt reports he plans on going to groups later today. denies SI/HI/VH/AH. Continue current tx plan. 06/05: Patient reports he laid in bed all day yesterday d/t feeling depressed but will get up and shower today . patient reports feeling anxious and depressed ; pt stated, I'm worried if my medications are going to work or not . denies SI/HI/VH/AH. Remeron increased to 30mg PO bedtime; pt aware. latuda increased to 60 mg @5pm per pt request. 06/06/25: Slept for 7 hours, medication and meals compliant. Isolated himself in bed, reading attempts. Appeared to be depressed and anxious. Educate patient on coping skills, and contributing factors to his depression. Medication is not the only solution for his anxiety and depression. He needs to motivate and engaged in community- attended groups and learn some more coping skills. We also discussed spiritual connection to his denominational he find that helpful for his mental health as well. No suicidal thoughts homicidal thoughts. No hallucinations. Do not appear to be psychotic. 06/07/25: Slept for 8 hours, self reports sleep was interrupted as roommate was coughing. Reports sometimes experienced chest pain. EKG done with normal sinus rhythm, normal EKG. Increase Depakote up to another 250 in the morning. We will recheck level in 5 days as he is still in severe depressed. Melatonin move to as needed. He appeared to be over medicated overnight. If continue to be sedated until late in the morning. Can reduce trazodone down to 150 instead of to 200mg over the weekends. Denies safety concerns, denies voices. Slightly more motivated to be out on the unit. He reports that he was reading the Bible in the sensory room and spent sometime in there yesterday. He agrees to go to at least one group today 06/08: asking for ativan per staff; reports worsening depression. 06/09: looking better today; will titrate Prazosin to 2 mg QHS Patient educated on: diagnosis and medication risk/benefits Informed Consent: understands Reason for continued inpatient stay Substantial Risk for: harm to self and rapid decompensation Time Spent With Patient Time: Total time managing care of this patient today __25__ minutes.
[2025-06-09 20:00] VITALS: BP 134/87; PULSE 102; RESP 16; TEMP 36.4; O2SAT 97
[2025-06-10 07:10] VITALS: BP 124/76; PULSE 71; RESP 16; TEMP 37.4; O2SAT 100
[2025-06-10 08:51] VITALS: BP 120/72
--- NOTE | 2025-06-10 18:08 | P.PNPSI_ITS ---
Subjective Subjective Date of Service: 06/10/25 Reason For Visit: SI Subjective Notes: Conditional Voluntary Healthcare Proxy: No Guardianship: No Medical Problems Affecting Mental Status: No Interim History: Medical record and nursing notes reviewed; case discussed during rounds with team/nursing staff, and met with patient for supportive therapy/psychoeducation, as well as medication management. Patient slept for 9 hours, was medication compliant. Denies side effects but reports feeling groggy up to the morning, which he agreed to go down on trazodone. He also requests to get Latuda from 60 to 80 for depression. Reports pain on the shoulder and legs which I agreed to give him naproxen as needed twice a day. He does not want to split the dose for Ativan p.r.n.. Requests to get it increased. However, he is aware that I will not do it as it may not be helpful in the long-term use, in the meantime he can use hydroxyzine or propranolol as needed, and work with outpatient providers regarding benzos requests. Denies safety concerns but reports 8/10 for anxiety and depression. Medication Compliance: Yes Side effects from medications: Yes (Feeling groggy in the morning nighttime meds) Attending Groups: Intermittent Review of Systems Acute medical concerns: No Medical Review of Systems: unchanged Review of Systems Review of Systems Constitutional : No Fever, No Chills ENT/Mouth : No Ear Pain, No Nasal Congestion, No sore throat Eyes: No Eye Pain, No Swelling, No Redness Cardiovascular : No Chest Pain, No SOB at this current time. However, report sometimes expereicne chest pain. EKG ordered on 06/07/25: Normal sinus rhythm. Normal EKG Respiratory : No Cough, No Sputum, No Dyspnea Gastrointestinal : No Nausea, No Vomiting, No Diarrhea, No Hematochezia, No Melena Genitourinary : No Dysuria, No Urinary Frequency, No Hematuria Musculoskeletal : No Myalgias Skin : No Skin Lesions, No rash Neuro : No Weakness, No Numbness, No Paresthesias, No Dizziness, No Headache Psych : positive Anxiety, positive Depression. All other systems reviewed and are negative Mental Status Exam Mental Status Exam Narrative: Appearance: casual attire, disheveled Behavior: cooperative with encounter Orientation: alert, generally oriented to person, place, time Memory: grossly intact to recent/remote events Attention: able to attend to the encounter discussion Psychomotor Function: no agitation or slowing; no abnormal gestures or movements Speech: normal rate, tone, volume Mood: better in terms of depression and anxiety Affect: mild blunting but brighter Thought Process: coherent Thought Content: themes of external agency of medications; denies SI/HI Hallucinations: denies AVH delusions: none evinced Insight: mild impairment Judgment: mild impairment Impulsivity: none noted Diagnostics Vital Signs (24Hr): Vital Signs - 24 hr 06/09/25 20:00 06/10/25 07:10 06/10/25 08:51 Temperature 97.5 F 99.3 F Pulse Rate 102 H 71 Respiratory Rate 16 16 Blood Pressure 134/87 124/76 120/72 Pulse Oximetry 97 100 Oxygen Delivery Method Room Air Room Air BMI result Body Mass Index 31.1 Labs 05/31/25 13:29 06/04/25 07:32 Medications Medications Current Medications Acetaminophen (Acetaminophen 325 Mg Tablet) 650 mg PO Q6H PRN PRN Reason: Headache/Pain, Scale 1-10 Last Admin: 06/10/25 15:50 Dose: 650 mg Al Hydroxide/Mg Hydroxide (Magnesium Hydrox/Alum Hydrox 30 Ml Oral.Susp) 30 ml PO Q6H PRN PRN Reason: Heartburn/Nausea Divalproex Sodium (Divalproex Sodium 500 Mg Tablet.Dr) 1,000 mg PO BEDTIME YOBANI Last Admin: 06/09/25 20:54 Dose: 1,000 mg Hydroxyzine HCl (Hydroxyzine Hcl 50 Mg Tablet) 50 mg PO Q4H PRN PRN Reason: Anxiety Last Admin: 06/09/25 14:12 Dose: 50 mg Lorazepam (Lorazepam 1 Mg Tablet) 1 mg PO DAILY PRN PRN Reason: Anxiety Last Admin: 06/10/25 11:13 Dose: 1 mg Losartan Potassium (Losartan Potassium 25 Mg Tablet) 25 mg PO DAILY YOBANI; Protocol Last Admin: 06/10/25 08:50 Dose: 25 mg Lurasidone HCl (Lurasidone Hcl 80 Mg Tablet) 80 mg PO DAILY@1700 YOBANI Last Admin: 06/10/25 17:08 Dose: 80 mg Magnesium Hydroxide (Milk Of Magnesia 30 Ml Oral.Susp) 30 ml PO DAILY PRN PRN Reason: Constipation Melatonin (Melatonin 3 Mg Tablet) 6 mg PO BEDTIME PRN PRN Reason: insomnia Last Admin: 06/09/25 20:57 Dose: 6 mg Mirtazapine (Mirtazapine 30 Mg Tablet) 30 mg PO BEDTIME YOBANI Last Admin: 06/09/25 20:57 Dose: 30 mg Naproxen (Naproxen 500 Mg Tablet) 500 mg PO Q12H PRN PRN Reason: Knee and shoulder pain Last Admin: 06/10/25 17:10 Dose: 500 mg Nicotine Polacrilex (Nicotine Polacrilex 2 Mg Gum) 4 mg BUCCAL Q2H PRN PRN Reason: Nicotine Cravings Prazosin HCl (Prazosin Hcl 1 Mg Capsule) 2 mg PO BEDTIME YOBANI; Protocol Last Admin: 06/09/25 20:56 Dose: 2 mg Propranolol HCl (Propranolol Hcl 20 Mg Tablet) 20 mg PO BID PRN; Protocol PRN Reason: Anxiety Last Admin: 06/07/25 18:04 Dose: 20 mg Trazodone HCl (Trazodone Hcl 50 Mg Tablet) 150 mg PO BEDTIME YOBANI Valproic Acid (Valproic Acid 250 Mg Capsule) 250 mg PO DAILY YOBANI Last Admin: 06/10/25 08:50 Dose: 250 mg Allergies Allergies Allergy/AdvReac Type Severity Reaction Status Date / Time duloxetine (From CYMBALTA) Allergy Unknown RASH Verified 05/31/25 12:59 shrimp Allergy Anaphylaxis Verified 05/31/25 12:59 Assessment & Plan Assessment & Plan (1) Bipolar disorder: Status: Acute Code(s): F31.9 - Bipolar disorder, unspecified (2) PTSD (post-traumatic stress disorder): Status: Acute Code(s): F43.10 - Post-traumatic stress disorder, unspecified (3) Cocaine use disorder: Status: Acute Code(s): F14.10 - Cocaine abuse, uncomplicated (4) Alcohol use disorder: Status: Acute Code(s): F10.90 - Alcohol use, unspecified, uncomplicated Plan Patient is a 49 year old male with hx of Bipolar d/o, PTSD, cocaine use d/o and alcohol use d/o who self presented to ER d/t vague suicidal ideation with no plan secondary to increased depression and anxiety. Plan: CV 15 minute safety checks Continue home medications Obtain collateral Referral to outpatient psychiatric providers Encourage groups Discharge planning VPA level on 06/12. Possible discharge on 06/13 back to own apartment. 06/04: Laying in bed. patient reports feeling the same as yesterday ; pt reports night dumont were not as intense . He is requesting to not be on multiple antihypertensives; DC clonidine. pt reports he plans on going to groups later today. denies SI/HI/VH/AH. Continue current tx plan. 06/05: Patient reports he laid in bed all day yesterday d/t feeling depressed but will get up and shower today . patient reports feeling anxious and depressed ; pt stated, I'm worried if my medications are going to work or not . denies SI/HI/VH/AH. Remeron increased to 30mg PO bedtime; pt aware. latuda increased to 60 mg @5pm per pt request. 06/06/25: Slept for 7 hours, medication and meals compliant. Isolated himself in bed, reading attempts. Appeared to be depressed and anxious. Educate patient on coping skills, and contributing factors to his depression. Medication is not the only solution for his anxiety and depression. He needs to motivate and engaged in community- attended groups and learn some more coping skills. We also discussed spiritual connection to his uatsdin he find that helpful for his mental health as well. No suicidal thoughts homicidal thoughts. No hallucinations. Do not appear to be psychotic. 06/07/25: Slept for 8 hours, self reports sleep was interrupted as roommate was coughing. Reports sometimes experienced chest pain. EKG done with normal sinus rhythm, normal EKG. Increase Depakote up to another 250 in the morning. We will recheck level in 5 days as he is still in severe depressed. Melatonin move to as needed. He appeared to be over medicated overnight. If continue to be sedated until late in the morning. Can reduce trazodone down to 150 instead of to 200mg over the weekends. Denies safety concerns, denies voices. Slightly more motivated to be out on the unit. He reports that he was reading the Bible in the sensory room and spent sometime in there yesterday. He agrees to go to at least one group today 06/08: asking for ativan per staff; reports worsening depression. 06/09: looking better today; will titrate Prazosin to 2 mg QHS. 06/10/22: Reports groggy feeling in into the morning which could be from to heavy medication at bedtime. He agrees to down on trazodone from 200 to 150 mg. He also requests to increase Latuda for depression up to 80 mg. Educate patient the higher dose the possibility side effects he may experience. Reported that he can go some groups but not able to read or write in [place]. Therefore sometimes he feel embarrassed and isolated himself more. He also agreed to have Depakote level drawn on Tuesday with possible discharge on back home. Naproxen 500 b.i.d. PRN also given for shoulder and legs pain. Anxiety/depression slightly better as the last week 06/30. More visible, brighter affect, and attended groups. No safety concerns Patient educated on: medication risk/benefits and therapeutic strategies Reason for continued inpatient stay Substantial Risk for: med/psych decompensation Time Spent With Patient Time: Total time managing care of this patient today ____ minutes.
[2025-06-10 21:20] VITALS: BP 133/72; PULSE 84; RESP 16; TEMP 36.7; O2SAT 97
[2025-06-11 07:39] VITALS: BP 125/76; PULSE 85; RESP 16; TEMP 36.8; O2SAT 98
[2025-06-11 08:21] VITALS: BP 125/76
[2025-06-11 15:29] VITALS: BP 156/83; PULSE 101
[2025-06-11 20:00] VITALS: BP 139/77; PULSE 78; TEMP 36.6; O2SAT 99
--- NOTE | 2025-06-11 20:55 | HO.PSYCHPN ---
Subjective Subjective Date of Service: 06/11/25 Reason For Visit: SI Subjective Notes: Conditional Voluntary Healthcare Proxy: No Guardianship: No Medical Problems Affecting Mental Status: No Interim History: Medical record and nursing notes reviewed; case discussed during rounds with team/nursing staff, and met with patient for supportive therapy/psychoeducation, as well as medication management. Patient slept for 8 hours, was medication compliant. Reports Latuda eyes working well. Reports lots of decreased in terms of anxiety and depression. Denies other safety concerns. He denies side effects of medications however reports some groggy feeling in the morning which could be from trazodone and giving a vivid dream Medication Compliance: Yes Side effects from medications: Yes (Continue to poor groggy in the morning) Attending Groups: Intermittent Review of Systems Acute medical concerns: No Medical Review of Systems: unchanged Review of Systems Review of Systems Constitutional : No Fever, No Chills ENT/Mouth : No Ear Pain, No Nasal Congestion, No sore throat Eyes: No Eye Pain, No Swelling, No Redness Cardiovascular : No Chest Pain, No SOB at this current time. However, report sometimes expereicne chest pain. EKG ordered on 06/07/25: Normal sinus rhythm. Normal EKG Respiratory : No Cough, No Sputum, No Dyspnea Gastrointestinal : No Nausea, No Vomiting, No Diarrhea, No Hematochezia, No Melena Genitourinary : No Dysuria, No Urinary Frequency, No Hematuria Musculoskeletal : No Myalgias Skin : No Skin Lesions, No rash Neuro : No Weakness, No Numbness, No Paresthesias, No Dizziness, No Headache Psych : positive Anxiety, positive Depression but improved All other systems reviewed and are negative Mental Status Exam Mental Status Exam Narrative: Appearance: casual attire, disheveled Behavior: cooperative with encounter Orientation: alert, generally oriented to person, place, time Memory: grossly intact to recent/remote events Attention: able to attend to the encounter discussion Psychomotor Function: no agitation or slowing; no abnormal gestures or movements Speech: normal rate, tone, volume Mood: better in terms of depression and anxiety Affect: mild blunting but brighter Thought Process: coherent Thought Content: themes of external agency of medications; denies SI/HI Hallucinations: denies AVH delusions: none evinced Insight: mild impairment Judgment: mild impairment Impulsivity: none noted Diagnostics Vital Signs (24Hr): Vital Signs - 24 hr 06/10/25 21:20 06/11/25 07:39 06/11/25 08:21 Temperature 98.1 F 98.2 F Pulse Rate 84 85 Respiratory Rate 16 16 Blood Pressure 133/72 125/76 125/76 Pulse Oximetry 97 98 Oxygen Delivery Method Room Air Room Air 06/11/25 15:29 06/11/25 20:00 Temperature 97.8 F Pulse Rate 101 H 78 Respiratory Rate Blood Pressure 156/83 H 139/77 Pulse Oximetry 99 Oxygen Delivery Method Room Air BMI result Body Mass Index 31.1 Labs 05/31/25 13:29 06/04/25 07:32 Medications Medications Current Medications Acetaminophen (Acetaminophen 325 Mg Tablet) 650 mg PO Q6H PRN PRN Reason: Headache/Pain, Scale 1-10 Last Admin: 06/11/25 20:22 Dose: 650 mg Al Hydroxide/Mg Hydroxide (Magnesium Hydrox/Alum Hydrox 30 Ml Oral.Susp) 30 ml PO Q6H PRN PRN Reason: Heartburn/Nausea Divalproex Sodium (Divalproex Sodium 500 Mg Tablet.Dr) 1,000 mg PO BEDTIME YOBANI Last Admin: 06/11/25 20:17 Dose: 1,000 mg Hydroxyzine HCl (Hydroxyzine Hcl 50 Mg Tablet) 50 mg PO Q4H PRN PRN Reason: Anxiety Last Admin: 06/11/25 18:34 Dose: 50 mg Lorazepam (Lorazepam 1 Mg Tablet) 1 mg PO DAILY PRN PRN Reason: Anxiety Last Admin: 06/11/25 11:30 Dose: 1 mg Losartan Potassium (Losartan Potassium 25 Mg Tablet) 25 mg PO DAILY [facility]; Protocol Last Admin: 06/11/25 08:21 Dose: 25 mg Lurasidone HCl (Lurasidone Hcl 80 Mg Tablet) 80 mg PO DAILY@1700 [facility] Last Admin: 06/11/25 17:14 Dose: 80 mg Magnesium Hydroxide (Milk Of Magnesia 30 Ml Oral.Susp) 30 ml PO DAILY PRN PRN Reason: Constipation Melatonin (Melatonin 3 Mg Tablet) 6 mg PO BEDTIME PRN PRN Reason: insomnia Last Admin: 06/09/25 20:57 Dose: 6 mg Mirtazapine (Mirtazapine 30 Mg Tablet) 30 mg PO BEDTIME YOBANI Last Admin: 06/11/25 20:17 Dose: 30 mg Naproxen (Naproxen 500 Mg Tablet) 500 mg PO Q12H PRN PRN Reason: Knee and shoulder pain Last Admin: 06/11/25 11:31 Dose: 500 mg Nicotine Polacrilex (Nicotine Polacrilex 2 Mg Gum) 4 mg BUCCAL Q2H PRN PRN Reason: Nicotine Cravings Prazosin HCl (Prazosin Hcl 1 Mg Capsule) 2 mg PO BEDTIME [facility]OB[facility]; Protocol Last Admin: 06/11/25 20:17 Dose: 2 mg Propranolol HCl (Propranolol Hcl 20 Mg Tablet) 20 mg PO BID PRN; Protocol PRN Reason: Anxiety Last Admin: 06/11/25 15:29 Dose: 20 mg Trazodone HCl (Trazodone Hcl 100 Mg Tablet) 100 mg PO BEDTIME YOBANI Valproic Acid (Valproic Acid 250 Mg Capsule) 250 mg PO DAILY [facility] Last Admin: 06/11/25 08:21 Dose: 250 mg Allergies Allergies Allergy/AdvReac Type Severity Reaction Status Date / Time duloxetine (From CYMBALTA) Allergy Unknown RASH Verified 05/31/25 12:59 shrimp Allergy Anaphylaxis Verified 05/31/25 12:59 Assessment & Plan Assessment & Plan (1) Bipolar disorder: Status: Acute Code(s): F31.9 - Bipolar disorder, unspecified (2) PTSD (post-traumatic stress disorder): Status: Acute Code(s): F43.10 - Post-traumatic stress disorder, unspecified (3) Cocaine use disorder: Status: Acute Code(s): F14.10 - Cocaine abuse, uncomplicated (4) Alcohol use disorder: Status: Acute Code(s): F10.90 - Alcohol use, unspecified, uncomplicated Plan Patient is a 49 year old male with hx of Bipolar d/o, PTSD, cocaine use d/o and alcohol use d/o who self presented to ER d/t vague suicidal ideation with no plan secondary to increased depression and anxiety. Plan: CV 15 minute safety checks Continue home medications Obtain collateral Referral to outpatient psychiatric providers Encourage groups Discharge planning VPA level on 06/12. Possible discharge on 06/13 back to own apartment. Sister will pick him up 06/04: Laying in bed. patient reports feeling the same as yesterday ; pt reports night dumont were not as intense . He is requesting to not be on multiple antihypertensives; DC clonidine. pt reports he plans on going to groups later today. denies SI/HI/VH/AH. Continue current tx plan. 06/05: Patient reports he laid in bed all day yesterday d/t feeling depressed but will get up and shower today . patient reports feeling anxious and depressed ; pt stated, I'm worried if my medications are going to work or not . denies SI/HI/VH/AH. Remeron increased to 30mg PO bedtime; pt aware. latuda increased to 60 mg @5pm per pt request. 06/06/25: Slept for 7 hours, medication and meals compliant. Isolated himself in bed, reading attempts. Appeared to be depressed and anxious. Educate patient on coping skills, and contributing factors to his depression. Medication is not the only solution for his anxiety and depression. He needs to motivate and engaged in community- attended groups and learn some more coping skills. We also discussed spiritual connection to his mu-ism he find that helpful for his mental health as well. No suicidal thoughts homicidal thoughts. No hallucinations. Do not appear to be psychotic. 06/07/25: Slept for 8 hours, self reports sleep was interrupted as roommate was coughing. Reports sometimes experienced chest pain. EKG done with normal sinus rhythm, normal EKG. Increase Depakote up to another 250 in the morning. We will recheck level in 5 days as he is still in severe depressed. Melatonin move to as needed. He appeared to be over medicated overnight. If continue to be sedated until late in the morning. Can reduce trazodone down to 150 instead of to 200mg over the weekends. Denies safety concerns, denies voices. Slightly more motivated to be out on the unit. He reports that he was reading the Bible in the sensory room and spent sometime in there yesterday. He agrees to go to at least one group today 06/08: asking for ativan per staff; reports worsening depression. 06/09: looking better today; will titrate Prazosin to 2 mg QHS. 06/10/22: Reports groggy feeling in into the morning which could be from to heavy medication at bedtime. He agrees to down on trazodone from 200 to 150 mg. He also requests to increase Latuda for depression up to 80 mg. Educate patient the higher dose the possibility side effects he may experience. Reported that he can go some groups but not able to read or write in [place]. Therefore sometimes he feel embarrassed and isolated himself more. He also agreed to have Depakote level drawn on Tuesday with possible discharge on back home. Naproxen 500 b.i.d. PRN also given for shoulder and legs pain. Anxiety/depression slightly better as the last week 06/30. More visible, brighter affect, and attended groups. No safety concerns. 06/11/25: Continued to improve in mood in terms of depression and anxiety. Anxiety a 4/10 and depression a 3/10 a lot better . Reports groggy feeling and having vivid dream from trazodone. He agreed to going down a little bit more on trazodone. Agree with lab work tomorrow morning for Depakote level, denies other safety concerns. Educate patient on asking for none benzo 1st for anxiety, and Ativan should be the last recourse. Mom visible, happier affect, and attended groups Trazodone reduced from 150 to 100 mg at bedtime. We will have trazodone as needed does not case he is not able to sleep well. Patient educated on: diagnosis and medication risk/benefits Informed Consent: understands Reason for continued inpatient stay Substantial Risk for: med/psych decompensation Time Spent With Patient Time: Total time managing care of this patient today ____ minutes.
[2025-06-12 07:52] VITALS: BP 118/59; PULSE 62; RESP 18; TEMP 36.1; O2SAT 99
[2025-06-12 08:13] VITALS: BP 118/59
--- NOTE | 2025-06-12 09:48 | P.PNPSI_ITS ---
Subjective Subjective Date of Service: 06/12/25 Reason For Visit: SI Subjective Notes: Conditional Voluntary Healthcare Proxy: No Guardianship: No Medical Problems Affecting Mental Status: No Interim History: Medical record and nursing notes reviewed; case discussed during rounds with team/nursing staff, and met with patient for supportive therapy/psychoeducation, as well as medication management. Patient slept well however reports some vivid dreams which could be from trazodone, and feeling groggy in the morning. Reports improving much more in depression and anxiety. Medication compliant with no other side effects. Depakote level was not drawn until tomorrow morning. Patient is happy with current regiment. She is looking for family to see who can pick him up tomorrow. Denies other safety concerns. Review with medication that he will be sent home with. Medication Compliance: Yes Side effects from medications: No (Some vivid dreams and groggy in the morning. Continue to titrate trazodone) Attending Groups: Yes Review of Systems Acute medical concerns: No Medical Review of Systems: unchanged Review of Systems Review of Systems Constitutional : No Fever, No Chills ENT/Mouth : No Ear Pain, No Nasal Congestion, No sore throat Eyes: No Eye Pain, No Swelling, No Redness Cardiovascular : No Chest Pain, No SOB at this current time. However, report sometimes expereicne chest pain. EKG ordered on 06/07/25: Normal sinus rhythm. Normal EKG Respiratory : No Cough, No Sputum, No Dyspnea Gastrointestinal : No Nausea, No Vomiting, No Diarrhea, No Hematochezia, No Melena Genitourinary : No Dysuria, No Urinary Frequency, No Hematuria Musculoskeletal : No Myalgias Skin : No Skin Lesions, No rash Neuro : No Weakness, No Numbness, No Paresthesias, No Dizziness, No Headache Psych : Continued to improve in anxiety and depression with mild symptoms All other systems reviewed and are negative Yes all other systems are reviewed and are negative Mental Status Exam Mental Status Exam Narrative: Appearance: casual attire, disheveled Behavior: cooperative with encounter Orientation: alert, generally oriented to person, place, time Memory: grossly intact to recent/remote events Attention: able to attend to the encounter discussion Psychomotor Function: no agitation or slowing; no abnormal gestures or movements Speech: normal rate, tone, volume Mood: better in terms of depression and anxiety Affect: mild blunting but brighter Thought Process: coherent Thought Content: themes of external agency of medications; denies SI/HI Hallucinations: denies AVH delusions: none evinced Insight: mild impairment Judgment: mild impairment Impulsivity: none noted Diagnostics Vital Signs (24Hr): Vital Signs - 24 hr 06/11/25 15:29 06/11/25 20:00 06/12/25 07:52 Temperature 97.8 F 97.0 F Pulse Rate 101 H 78 62 Respiratory Rate 18 Blood Pressure 156/83 H 139/77 118/59 L Pulse Oximetry 99 99 Oxygen Delivery Method Room Air Room Air 06/12/25 08:13 Temperature Pulse Rate Respiratory Rate Blood Pressure 118/59 L Pulse Oximetry Oxygen Delivery Method BMI result Body Mass Index 31.1 Labs 05/31/25 13:29 06/04/25 07:32 Medications Medications Current Medications Acetaminophen (Acetaminophen 325 Mg Tablet) 650 mg PO Q6H PRN PRN Reason: Headache/Pain, Scale 1-10 Last Admin: 06/11/25 20:22 Dose: 650 mg Al Hydroxide/Mg Hydroxide (Magnesium Hydrox/Alum Hydrox 30 Ml Oral.Susp) 30 ml PO Q6H PRN PRN Reason: Heartburn/Nausea Divalproex Sodium (Divalproex Sodium 500 Mg Tablet.Dr) 1,000 mg PO BEDTIME YOBANI Last Admin: 06/11/25 20:17 Dose: 1,000 mg Hydroxyzine HCl (Hydroxyzine Hcl 50 Mg Tablet) 50 mg PO Q4H PRN PRN Reason: Anxiety Last Admin: 06/11/25 18:34 Dose: 50 mg Lorazepam (Lorazepam 1 Mg Tablet) 1 mg PO DAILY PRN PRN Reason: Anxiety Last Admin: 06/11/25 11:30 Dose: 1 mg Losartan Potassium (Losartan Potassium 25 Mg Tablet) 25 mg PO DAILY [facility]; Protocol Last Admin: 06/12/25 08:13 Dose: 25 mg Lurasidone HCl (Lurasidone Hcl 80 Mg Tablet) 80 mg PO DAILY@1700 [facility] Last Admin: 06/11/25 17:14 Dose: 80 mg Magnesium Hydroxide (Milk Of Magnesia 30 Ml Oral.Susp) 30 ml PO DAILY PRN PRN Reason: Constipation Melatonin (Melatonin 3 Mg Tablet) 6 mg PO BEDTIME PRN PRN Reason: insomnia Last Admin: 06/09/25 20:57 Dose: 6 mg Mirtazapine (Mirtazapine 30 Mg Tablet) 30 mg PO BEDTIME YOBANI Last Admin: 06/11/25 20:17 Dose: 30 mg Naproxen (Naproxen 500 Mg Tablet) 500 mg PO Q12H PRN PRN Reason: Knee and shoulder pain Last Admin: 06/11/25 11:31 Dose: 500 mg Nicotine Polacrilex (Nicotine Polacrilex 2 Mg Gum) 4 mg BUCCAL Q2H PRN PRN Reason: Nicotine Cravings Prazosin HCl (Prazosin Hcl 1 Mg Capsule) 2 mg PO BEDTIME [facility]; Protocol Last Admin: 06/11/25 20:17 Dose: 2 mg Propranolol HCl (Propranolol Hcl 20 Mg Tablet) 20 mg PO BID PRN; Protocol PRN Reason: Anxiety Last Admin: 06/11/25 15:29 Dose: 20 mg Trazodone HCl (Trazodone Hcl 100 Mg Tablet) 100 mg PO BEDTIME YOBANI Trazodone HCl (Trazodone Hcl 50 Mg Tablet) 50 mg PO BEDTIME PRN PRN Reason: insomnia Valproic Acid (Valproic Acid 250 Mg Capsule) 250 mg PO DAILY [facility]OB[facility] Last Admin: 06/12/25 08:13 Dose: 250 mg Allergies Allergies Allergy/AdvReac Type Severity Reaction Status Date / Time duloxetine (From CYMBALTA) Allergy Unknown RASH Verified 05/31/25 12:59 shrimp Allergy Anaphylaxis Verified 05/31/25 12:59 Assessment & Plan Assessment & Plan (1) Bipolar disorder: Status: Acute Code(s): F31.9 - Bipolar disorder, unspecified (2) PTSD (post-traumatic stress disorder): Status: Acute Code(s): F43.10 - Post-traumatic stress disorder, unspecified (3) Cocaine use disorder: Status: Acute Code(s): F14.10 - Cocaine abuse, uncomplicated (4) Alcohol use disorder: Status: Acute Code(s): F10.90 - Alcohol use, unspecified, uncomplicated Plan Patient is a 49 year old male with hx of Bipolar d/o, PTSD, cocaine use d/o and alcohol use d/o who self presented to ER d/t vague suicidal ideation with no plan secondary to increased depression and anxiety. Plan: CV 15 minute safety checks Continue home medications Obtain collateral Referral to outpatient psychiatric providers Encourage groups Discharge planning VPA level on 06/12. Possible discharge on 06/13 back to own apartment. Sister will pick him up 06/04: Laying in bed. patient reports feeling the same as yesterday ; pt reports night dumont were not as intense . He is requesting to not be on multiple antihypertensives; DC clonidine. pt reports he plans on going to groups later today. denies SI/HI/VH/AH. Continue current tx plan. 06/05: Patient reports he laid in bed all day yesterday d/t feeling depressed but will get up and shower today . patient reports feeling anxious and depressed ; pt stated, I'm worried if my medications are going to work or not . denies SI/HI/VH/AH. Remeron increased to 30mg PO bedtime; pt aware. latuda increased to 60 mg @5pm per pt request. 06/06/25: Slept for 7 hours, medication and meals compliant. Isolated himself in bed, reading attempts. Appeared to be depressed and anxious. Educate patient on coping skills, and contributing factors to his depression. Medication is not the only solution for his anxiety and depression. He needs to motivate and engaged in community- attended groups and learn some more coping skills. We also discussed spiritual connection to his denominational he find that helpful for his mental health as well. No suicidal thoughts homicidal thoughts. No hallucinations. Do not appear to be psychotic. 06/07/25: Slept for 8 hours, self reports sleep was interrupted as roommate was coughing. Reports sometimes experienced chest pain. EKG done with normal sinus rhythm, normal EKG. Increase Depakote up to another 250 in the morning. We will recheck level in 5 days as he is still in severe depressed. Melatonin move to as needed. He appeared to be over medicated overnight. If continue to be sedated until late in the morning. Can reduce trazodone down to 150 instead of to 200mg over the weekends. Denies safety concerns, denies voices. Slightly more motivated to be out on the unit. He reports that he was reading the Bible in the sensory room and spent sometime in there yesterday. He agrees to go to at least one group today 06/08: asking for ativan per staff; reports worsening depression. 06/09: looking better today; will titrate Prazosin to 2 mg QHS. 06/10/22: Reports groggy feeling in into the morning which could be from to heavy medication at bedtime. He agrees to down on trazodone from 200 to 150 mg. He also requests to increase Latuda for depression up to 80 mg. Educate patient the higher dose the possibility side effects he may experience. Reported that he can go some groups but not able to read or write in [place]. Therefore sometimes he feel embarrassed and isolated himself more. He also agreed to have Depakote level drawn on Tuesday with possible discharge on back home. Naproxen 500 b.i.d. PRN also given for shoulder and legs pain. Anxiety/depression slightly better as the last week 06/30. More visible, brighter affect, and attended groups. No safety concerns. 06/11/25: Continued to improve in mood in terms of depression and anxiety. Anxiety a 4/10 and depression a 3/10 a lot better . Reports groggy feeling and having vivid dream from trazodone. He agreed to going down a little bit more on trazodone. Agree with lab work tomorrow morning for Depakote level, denies other safety concerns. Educate patient on asking for none benzo 1st for anxiety, and Ativan should be the last recourse. Mom visible, happier affect, and attended groups Trazodone reduced from 150 to 100 mg at bedtime. We will have trazodone as needed does not case he is not able to sleep well. 06/12/25: Continued to improve in depression and anxiety, mild symptoms. Slept better. Continue to titrate down on trazodone as it could be causing him to have vivid dreams and groggy in the morning. He slept well with trazodone tapered down. More visible, attend his groups, happy and bright affect. No safety concerns. He is looking for family who can pick him up tomorrow. Review medication that he will send home with. This provider is working on sending medication to preferred pharmacy. Patient educated on: diagnosis, medication risk/benefits, substance abuse and therapeutic strategies Informed Consent: understands Reason for continued inpatient stay Substantial Risk for: med/psych decompensation Time Spent With Patient Time: Total time managing care of this patient today ____ minutes.
[2025-06-12 15:03] VITALS: BP 138/86; PULSE 83
[2025-06-12 19:36] VITALS: BP 145/95; PULSE 77; RESP 18; TEMP 36.4; O2SAT 97
[2025-06-13 07:40] VITALS: BP 123/64; PULSE 70; RESP 18; TEMP 36.9; O2SAT 97
[2025-06-13 08:57] VITALS: BP 123/64
--- NOTE | 2025-06-13 09:13 | PM.PSYDC ---
DS: Providers Provider Date of Service: 06/13/25 Date of admission: 06/03/25 11:17 Date of discharge: 06/13/25 Primary care physician: Suleman Pritchard MD Attending physician on admission: Sue Finch Attending physician on discharge: Syeda Bueno DS: Diagnosis Discharge Diagnosis (1) Bipolar disorder: Status: Acute (2) PTSD (post-traumatic stress disorder): Status: Acute (3) Cocaine use disorder: Status: Acute (4) Alcohol use disorder: Status: Acute DS: Medications Discharge Medications Home Medications: Home Medications ?Medication ?Instructions ?Recorded ?Confirmed propranolol 20 mg tablet 20 mg PO BID PRN Anxiety 05/11/25 05/31/25 Previous Rx's ?Medication ?Instructions ?Recorded divalproex 500 mg tablet,delayed 1,000 mg (2 x 500 mg) PO BEDTIME 06/12/25 release depressive disorder 30 days #60 tabs hydroxyzine pamoate 50 mg capsule 50 mg PO Q8H PRN Anxiety #30 caps 06/12/25 lorazepam 1 mg tablet 1 mg PO DAILY PRN Anxiety #14 tabs 06/12/25 losartan 25 mg tablet 25 mg PO DAILY #30 tabs 06/12/25 lurasidone 40 mg tablet (Latuda) 80 mg (2 x 40 mg) PO DAILY@1700 06/12/25 Mood 30 days #60 tabs mirtazapine 15 mg tablet 30 mg (2 x 15 mg) PO BEDTIME 30 06/12/25 days #60 tabs naproxen 500 mg tablet 500 mg PO Q12H PRN Knee and 06/12/25 shoulder pain #30 tabs prazosin 1 mg capsule 2 mg PO BEDTIME PTSD #60 caps 06/12/25 trazodone 100 mg tablet 100 mg PO BEDTIME Insomnia 30 06/12/25 days #30 tabs valproic acid 250 mg capsule 250 mg PO DAILY Mood-depression 06/12/25 #30 caps Mental Status Exam Mental Status Exam Narrative: Patient presents well-groomed, casually dressed. Affect is euthymic with full range. Speech is clear and coherent. Thought process is linear and logical. Thought content is appropriate and relevant. Patient denies suicidal or homicidal ideation intent or plan. No overt psychotic symptoms elicited. Insight is good. Judgment is good. Data Data Completed and Pending Completed studies during hospitalization [Text1]: 06/13/25 08:03 Valproic Acid 46.7 L DS: Summary Hospital Course Hospital Course: Plan Patient is a 49 year old male with hx of Bipolar d/o, PTSD, cocaine use d/o and alcohol use d/o who self presented to ER d/t vague suicidal ideation with no plan secondary to increased depression and anxiety. Plan: VPA level on 06/13: 46.7: subtherapeutic. Patient is make aware prior to discharge. Patient is aware. to address it with outpatient provider to see if those need to be increased to get to therapeutic level. 06/04: Laying in bed. patient reports feeling the same as yesterday ; pt reports night dumont were not as intense . He is requesting to not be on multiple antihypertensives; DC clonidine. pt reports he plans on going to groups later today. denies SI/HI/VH/AH. Continue current tx plan. 06/05: Patient reports he laid in bed all day yesterday d/t feeling depressed but will get up and shower today . patient reports feeling anxious and depressed ; pt stated, I'm worried if my medications are going to work or not . denies SI/HI/VH/AH. Remeron increased to 30mg PO bedtime; pt aware. latuda increased to 60 mg @5pm per pt request. 06/06/25: Slept for 7 hours, medication and meals compliant. Isolated himself in bed, reading attempts. Appeared to be depressed and anxious. Educate patient on coping skills, and contributing factors to his depression. Medication is not the only solution for his anxiety and depression. He needs to motivate and engaged in community- attended groups and learn some more coping skills. We also discussed spiritual connection to his yazdanism he find that helpful for his mental health as well. No suicidal thoughts homicidal thoughts. No hallucinations. Do not appear to be psychotic. 06/07/25: Slept for 8 hours, self reports sleep was interrupted as roommate was coughing. Reports sometimes experienced chest pain. EKG done with normal sinus rhythm, normal EKG. Increase Depakote up to another 250 in the morning. We will recheck level in 5 days as he is still in severe depressed. Melatonin move to as needed. He appeared to be over medicated overnight. If continue to be sedated until late in the morning. Can reduce trazodone down to 150 instead of to 200mg over the weekends. Denies safety concerns, denies voices. Slightly more motivated to be out on the unit. He reports that he was reading the Bible in the sensory room and spent sometime in there yesterday. He agrees to go to at least one group today 06/08: asking for ativan per staff; reports worsening depression. 06/09: looking better today; will titrate Prazosin to 2 mg QHS. 06/10/22: Reports groggy feeling in into the morning which could be from to heavy medication at bedtime. He agrees to down on trazodone from 200 to 150 mg. He also requests to increase Latuda for depression up to 80 mg. Educate patient the higher dose the possibility side effects he may experience. Reported that he can go some groups but not able to read or write in Vietnamese. Therefore sometimes he feel embarrassed and isolated himself more. He also agreed to have Depakote level drawn on Tuesday with possible discharge on back home. Naproxen 500 b.i.d. PRN also given for shoulder and legs pain. Anxiety/depression slightly better as the last week 06/30. More visible, brighter affect, and attended groups. No safety concerns. 06/11/25: Continued to improve in mood in terms of depression and anxiety. Anxiety a 4/10 and depression a 3/10 a lot better . Reports groggy feeling and having vivid dream from trazodone. He agreed to going down a little bit more on trazodone. Agree with lab work tomorrow morning for Depakote level, denies other safety concerns. Educate patient on asking for none benzo 1st for anxiety, and Ativan should be the last recourse. Mom visible, happier affect, and attended groups Trazodone reduced from 150 to 100 mg at bedtime. We will have trazodone as needed does not case he is not able to sleep well. 06/12/25: Continued to improve in depression and anxiety, mild symptoms. Slept better. Continue to titrate down on trazodone as it could be causing him to have vivid dreams and groggy in the morning. He slept well with trazodone tapered down. More visible, attend his groups, happy and bright affect. No safety concerns. He is looking for family who can pick him up tomorrow. Review medication that he will send home with. This provider is working on sending medication to preferred pharmacy. Time spent discussing smoking cessation with patient: 3 to 10 minutes Status at Discharge Cognitive/behavioral status at discharge: CONDITION ON DISCHARGE: CURRENT STATUS IT RELATES TO ADMISSION CRITERIA: Stable, improved. Improvements in depression, anxiety, and suicidal ideation. Improvements in sleep, energy, and appetite. and no hallucination or paranoia/delusional thought. Functional status at discharge: independent ambulation Overall status at discharge: patient is back to baseline Time Spent with Patient Time attestation: Total time managing care of this patient today ____ minutes. Time spent: Greater than 30 minutes Discharge Plan Discharge Anticipated Discharge Date/Time: 06/13/25 11:00 Patient Disposition: Home, Self-Care Discharge Diagnosis: Bipolar, Anxiety, PTSD, and Hypertension. Referrals: Marianna Flores (Therapy) [Other] - 06/21/25 10:00 am Referral Note: IN OFFICE APPOINTMENT Marga Saucedo (Psychiatry) [Other] - 07/17/25 11:00 am Referral Note: IN OFFICE APPOINTMENT Suleman Pritchard MD [Primary Care Provider, Internal Medicine] Referral Note: 06-12-25 Please contact your primary care provider to schedule a follow up appt within 7-10 days of discharge. No release on file. Discharge Medications: New prazosin 1 mg Capsule 2 mg PO BEDTIME Qty: 60 0RF Protocol: Hold for SBP< HOLD for SBP < : 90 valproic acid 250 mg Capsule 250 mg PO DAILY Qty: 30 0RF naproxen 500 mg Tablet 500 mg PO Q12H PRN (Reason: Knee and shoulder pain) Qty: 30 0RF Continued propranolol 20 mg Tablet 20 mg PO BID PRN (Reason: Anxiety) divalproex 500 mg tablet,delayed release (DR/EC) 1,000 mg PO BEDTIME 30 Days Qty: 60 0RF losartan 25 mg tablet 25 mg PO DAILY Qty: 30 0RF lorazepam 1 mg Tablet 1 mg PO DAILY PRN (Reason: Anxiety) Qty: 14 0RF Changed hydroxyzine pamoate 50 mg Capsule 50 mg PO Q8H PRN (Reason: Anxiety) Qty: 30 0RF trazodone 100 mg Tablet 100 mg PO BEDTIME 30 Days Qty: 30 0RF mirtazapine 15 mg Tablet 30 mg PO BEDTIME 30 Days Qty: 60 0RF lurasidone [Latuda] 40 mg Tablet 80 mg PO DAILY@1700 30 Days Qty: 60 0RF Discontinued melatonin 3 mg tablet 6 mg PO BEDTIME clonidine HCl 0.1 mg Tablet 0.1 mg PO BEDTIME 30 Days Qty: 30 0RF Protocol: Hold for SBP< HOLD for SBP < : 90 Discharge Orders: Discharge Order (Routine); Ordered 06/13/25 Ordered By: Syeda Bueno Diet: Regular diet Activity on Discharge: As tolerated Stand Alone Forms: Patient Portal Discharge page, Community Support Print Language: Vietnamese Care Plan Goals: Maintain mood and safe behaviors Take medications as prescribed Continue to pursue sobriety Practice coping skills Continue with outpatient providers and reach out to them as needed Health Concerns: Mood stability and behaviors Sobriety Plan of Treatment: Follow up with your PCP, psychiatric provider and other outpatient providers regarding above concerns Take medications as prescribed Assessment: Assessment: Risk assessment at time of discharge: Patient was interviewed prior to discharge and found to be fully oriented and without any SI or HI. Patient has improved insight and judgment and wants to continue treatment. Patient is not in imminent risk of harm to self or others and has a safety plan that includes presenting to the closest ER or calling 911 if feeling unsafe. Patient has been observed closely by nursing and unit staff throughout admission; patient has not engaged in any behaviors that suggest dangerousness to self or others and has demonstrated appropriate behaviors and impulse control Discharge Date/Time: 06/13/25 10:41
== END 2025-06-13 10:41 | disposition home or self-care (01) | DRG 885 ==
LOC: HO.ED 06-03 11:25 → HO.PADLT16 06-03 12:58
PROVIDERS: Nurse Practitioner Psychiatric/Mental Health; Physician Assistant; Admitting Provider Registered Nurse; Emergency Provider Emergency Medicine; PCP Internal Medicine; Responsible Provider Registered Nurse; Visit Provider Psychiatry & Neurology Psychiatry
DX: F31.9 Bipolar disorder, unspecified (principal); R45.851 Suicidal ideations; F17.210 Nicotine dependence, cigarettes, uncomplicated; F43.10 Post-traumatic stress disorder, unspecified; F14.10 Cocaine abuse, uncomplicated; F10.90 Alcohol use, unspecified, uncomplicated; I10 Essential (primary) hypertension; Z71.6 Tobacco abuse counseling; Z79.899 Other long term (current) drug therapy
CPT/HCPCS: 36415; 80053; 80061; 80143; 80164; 80179; 80307; 81003; 83036; 85025; 93005; 99285; S9485

== ENCOUNTER → 2025-06-03 08:18 | Outpatient (BNV) | payer OTHER, SELFPAY | PROVIDERS: Admitting Provider Registered Nurse; Emergency Provider Emergency Medicine; PCP Internal Medicine; Responsible Provider Registered Nurse; Visit Provider Internal Medicine | DX: R00.1 Bradycardia, unspecified (principal) | CPT/HCPCS: 93010 ==

== ENCOUNTER 2025-06-03 11:17 | Outpatient (BNV) | payer OTHER, SELFPAY | END 2025-06-07 11:50 | PROVIDERS: Admitting Provider Registered Nurse; Emergency Provider Emergency Medicine; PCP Internal Medicine; Responsible Provider Registered Nurse; Visit Provider Internal Medicine | DX: R07.9 Chest pain, unspecified (principal) | CPT/HCPCS: 93010 ==

== ENCOUNTER → 2025-06-03 11:17 | Outpatient (BNV) | payer OTHER, SELFPAY | PROVIDERS: Admitting Provider Registered Nurse; Emergency Provider Emergency Medicine; PCP Internal Medicine; Responsible Provider Registered Nurse; Visit Provider Registered Nurse | DX: F31.4 Bipolar disorder, current episode depressed, severe, without psychotic features (principal); F14.10 Cocaine abuse, uncomplicated; F10.90 Alcohol use, unspecified, uncomplicated; F43.11 Post-traumatic stress disorder, acute | CPT/HCPCS: 90792; 99231; 99232; 99238 ==

== ENCOUNTER 2025-07-10 16:17 | Inpatient (IN) | payer OTHER, SELFPAY ==
[2025-07-10 16:19] VITALS: BP 167/90; PULSE 75; RESP 16; TEMP 36.3; O2SAT 97; BMI 32.3
--- OUTSIDE RECORDS SUMMARY | 2025-07-10 16:45 | XMS_ITS | Encounter Summary ---
Author Organization [employer] Address [address] [place] [address] Care Team Providers Care Edge Roller Name Role Phone Anjali Uribe RESIDENT DIRECTOR Primary Care Provider [phone] Encounter Details Date Type Department Care Team (Late st Contact Info) Description 03/22/2025 Lab Requisition [facility] - Main Lab [address] [place] [id number] Sania Wing V, DECK ENGINE OPERATOR [address] [place] [address] Other group home (current) drug therapy Social History Tobacco Use [...] TOTAL Routine 03/22/2025 7:00 AM EDT Other watermelon harvesting supervisor (current) drug therapy documented in this encounter Results * Valproic acid level, total (03/22/2025 7:00 AM EDT) Valproic Acid, Total 78 50 - 100 mcg/mL LAB CHEMISTRY METHOD 03/22/2025 10:44 AM EDT [facility] Comment:Results verified by repeat testing Blood Venous blood specimen / Unknown Venipuncture / Unknown 03/22/2025 7:00 AM EDT 03/22/2025 8:48 AM EDT us Sania Wing V, DECK ENGINE OPERATOR LAB BLOOD ORDERABLES Final Re sult [facility] [address] [place] [address], documented in this encounter Visit Diagnoses Diagnosis Other watermelon harvesting supervisor (current) drug therapy documented in this encounter Care Teams Edge Roller Relationship Specialty Start Date End Date Anjali Uribe FNP [address] [place] [id number] PCP - General Family Medicine 03/23/25 documented as of this encounter
--- OUTSIDE RECORDS SUMMARY | 2025-07-10 16:45 | XMS_ITS | Encounter Summary ---
Author Organization [employer] Address [address] [place] [address] Care Team Providers Care Probation Agent Name Role Phone Russel Weinstein MD Primary Care Prov ider Encounter Details Date Type Department Care Team (Late st Contact Info) Description 04/09/2025 Orders Only [facility] [address] [place], [place] [id number] Hansa Martinez [place] Social History Tobacco Use Types Packs/Day Years Used Date Smoking Tobacco: Every Day Cigarettes 0.5 30.6 Started: 1994 Smokeless Tobacco: Never Alcohol Use [...] documented as of this encounter Care Teams Probation Agent Relationship Specialty Start Date End Date Russel Weinstein MD [address] [place] [id number] PCP - General Internal Medicine 02/15/25 documented as of this encounter
--- NOTE | 2025-07-10 16:57 | ED_ITS ---
HPI - Psych General Chief Complaint: Psychiatric Symptoms Stated Complaint: Suicidal Time Seen by Provider: 07/10/25 16:56 Source: patient, RN notes reviewed and old records reviewed Mode of arrival: ambulatory Limitations: no limitations History of Present Illness ED Provider: Abhishek HPI Narrative: Patient is a 49-year-old male with history of anxiety, bipolar disorder, PTSD, hypertension presenting to the emergency department with complaint of ongoing depression and suicidal ideation. States he has plan to overdose on his medications. Denies any homicidal ideation, auditory or visual hallucinations. States that his Latuda was recently increased but he is not feeling any better. He states that he is awake all night and then feels very drowsy throughout the day. Decreased appetite. Complains of chronic bilateral knee pain, denies any other physical complaints. States he has been taking Aleve for the knee pain at home. complaint: suicidal ideation and feels depressed Onset (ago): week(s) Duration: constant History of same: Yes Relieving factors: none Associated psychiatric symptoms: depression Related Data Home Medications ?Medication ?Instructions ?Recorded ?Confirmed propranolol 20 mg tablet 20 mg PO BID PRN Anxiety 07/10/25 lurasidone 20 mg tablet 100 mg PO DAILY@1700 5 07/11/25 trazodone 100 mg tablet 200 mg PO BEDTIME PRN Sleep 07/11/25 07/11/25 Previous Rx's ?Medication ?Instructions ?Recorded divalproex 500 mg tablet,delayed 1,000 mg (2 x 500 mg) PO BEDTIME 06/12/25 release depressive disorder 30 days #60 tabs hydroxyzine pamoate 50 mg capsule 50 mg PO Q8H PRN Anx iety #30 caps 06/12/25 lorazepam 1 mg tablet 1 mg PO DAILY PRN Anxiety #1 4 tabs 06/12/25 mirtazapine 15 mg tablet 30 mg (2 x 15 mg) PO BEDTIME 30 06/12/25 days #60 tabs naproxen 500 mg tablet 500 mg PO Q12H PRN Knee and 06/12/25 shoulder pain #30 tabs prazosin 1 mg capsule 2 mg PO BEDTIME PTSD #60 cap s 06/12/25 Allergies Allergy/AdvReac Type Severity Reaction Status Date / Time duloxetine (From CYMBALTA) Allergy Unknown RASH Verified 07/10/25 16:23 shrimp Allergy Anaphylaxis Verified 07/10/25 16:23 Review of Systems 2 Review of Systems: as per hpi Yes all other systems are reviewed and are negative Constitutional: Constitutional: Reports as per HPI [facility] Past Medical History Medical History Suicidal ideation Post traumatic stress disorder Alcohol use disorder Cocaine use disorder Hypertension Anxiety Depression Social History Social History Household Members: Other Household Members Other:: sober living Housing: Other Housing Other:: sober living Do you presently have visiting nurse or other home services: No Unable to assess alcohol history related to: Refusing to respond Alcohol intake: current Alcohol intake frequency: former alcohol drinker Comment: not a high fall risk patient Patient Tobacco Use Status: Former Tobacco user Tobacco use type: Cigarette Smoked in Last 30 Days: Yes e-Cigarette/Vaping Use: Never Used Patient Interested in Nicotine Replacement: No Patient Given Instructions on How to Stop Smoking: Yes Date Education Initiated: 07/11/25 Second Hand Smoke Exposure: No Use of substances other than those prescribed or required for medical reasons: Refusing to respond Substance Use Type: Crack/Cocaine and Marijuana Currently Displaying Signs/Symptoms of Drug Intoxication Withdrawal: No Have you been hit, kicked, punched, or otherwise hurt by someone within the past year? If so, by whom?: No Do you feel safe in your current relationship?: No Current Relationship Is there a partner from a previous relationship who is making you feel unsafe now?: No Are you made to feel afraid or neglected: No Advance Directives: Yes Advance Directives on File: Yes Advance Directives Date on File: 01/13/21 Do you have thoughts of harming others: None Do you have a plan to hurt others: No Plan Recently lost weight without trying: No How much weight loss: Not applicable Eating poorly because of decreased appetite: No Nutrition screen score: 0 Nutrition Risks: No Nutritional Risk Poor oral hygiene: No service: No Sexual orientation: Straight/Heterosexual Physical Exam 2 Vital Signs: Vital Signs: Last Vital Signs Temp 98.4 F 07/18/25 07:38 Pulse 63 07/18/25 07:38 Resp 20 07/18/25 07:38 BP 113/72 07/18/25 07:38 Pulse Ox 99 07/18/25 07:38 O2 Del Method Room Air 07/18/25 07:38 BMI result Body Mass Index 32.3 Vital signs have been reviewed and appear to be correct. Blood pressure elevated. Heart rate normal. Respiratory rate normal. Temperature normal. Oxygen saturation normal. Const: General: cooperative, healthy appearing and no acute distress O rientation/consciousness: oriented to person, oriented to place, oriented to time and patient oriented x3 Limitations: no limitations HEENT: Head: Yes normocephalic and Yes atraumatic Ears: external ears normal General nose exam: Normal external nose present Face and sinus: Yes face symmetric Mouth: oropharynx normal and moist mucous membranes Throat: Yes uvula midline Eyes: Pupils: Equal, round and reactive pupils present Neck: Neck: Yes normal visual inspection and Yes supple Resp: Effort & Inspection: normal respiratory effort and able to speak in complete sentences Auscultation: clear to auscultation bilaterally Cardio: Rate: regular rate Rhythm: regular rhythm Heart sounds: S1 normal heart sound present and S2 normal heart sound present GI: Palpation (GI): Soft to palpation and nontender Auscultation: n ormoactive bowel sounds : General: Yes no CVA tenderness Back/Spine/Pelvis: Back: no CVA tenderness Skin: General skin exam: elasticity normal and turgor normal Neuro: General: oriented to person, oriented to place, oriented to time, patient oriented x3, moves all extremities, no focal motor deficits and CN's II- XI intact bilaterally Cranial nerves: Yes Equal, round and reactive pupils present Cognition (Neuro): normal cognition Extrem: General: Yes full ROM, Yes no pedal edema and Yes no calf tenderness Psych: Appearance: grossly normal Mental Status: mental status grossly normal Speech and movement: Normal speech and movement present Affect: Sad affect present Attitude: cooperative Thought process: Normal thought process present Thought content: Suicidality present, no homicidality, no delusions, no hallucinations and Depressive thoughts present Insight: Good insight present (Psych) Judgement: Good judgement present (Psych) Course Reevaluation(s) Reevaluation #1: Time: 21:18 Date: 07/10/25 Provider: Carlos Acosta MD Patient in physician observation for psychiatric evaluation.? Patient was evaluated by the CARE team. I obtained the following information from the clinician. Patient has history of bipolar disorder and depression. Patient has suicidal ideation with a plan to overdose on medications. Therefore the patient was placed on a Section 12. The patient will be in in-patient bed search. Will continue to monitor. Reevaluation #2: DR. Yuen's progress note; 07/11/2025; 9;00 VSS, no issue reported by nursing overnight, no complaints, under section 12 until placement, continue with physician observation, bed search is underway. Time: 09:00 Reevaluation #3: Time: 14:58 hours, Date: 07/11/25 Provider: Carlos Acosta MD Physician observation ended at 14:50 hours. Patient to be admitted as inpatient to psychiatry. Medications Administered Generic Name Dose Route Start Last Admin Trade Name Freq PRN Reason Stop Dose Admin Brexpiprazole 2 mg 07/17/25 09:00 07/18/25 08:12 Brexpiprazole 2 Mg Tablet PO 2 mg DAILY YOBANI Administration Divalproex Sodium 1,000 mg 07/10/25 21:15 07/17/25 20:54 Divalproex Sodium 500 Mg Tablet. PO 1,000 mg BEDTIME YOBANI Administration Hydroxyzine HCl 50 mg 07/10/25 21:05 07/17/25 14:20 Hydroxyzine Hcl 50 Mg Tablet PO 50 mg Q8H PRN Administration Anxiety Quinlan Carbonate 600 mg 07/15/25 21:00 07/17/25 20:55 Quinlan Carbonate Er 300 Mg Tablet.Er PO 600 mg BEDTIME YOBANI Administration Lorazepam 1 mg 07/10/25 21:05 07/18/25 08:38 Lorazepam 1 Mg Tablet PO 1 mg DAILY PRN Administration Anxiety Lurasidone HCl 60 mg 07/15/25 21:00 07/17/25 20:54 Lurasidone Hcl 20 Mg Tablet PO 60 mg BEDTIME YOBANI Administration Melatonin 9 mg 07/11/25 20:55 07/17/25 20:59 Melatonin 3 Mg Tablet PO 9 mg BEDTIME PRN Administration Insomnia Mirtazapine 30 mg 07/10/25 21:15 07/17/25 21:06 Mirtazapine 30 Mg Tablet PO 30 mg BEDTIME YOBANI Administration Naproxen 500 mg 07/10/25 21:05 07/15/25 17:54 Naproxen 500 Mg Tablet PO 500 mg Q12H PRN Administration Knee and shoulder pain Nystatin 1 appl 07/13/25 21:00 07/18/25 08:12 Nystatin Powder 15 Gm Bottle TOPICAL Not Given BID YOBANI Protocol Prazosin HCl 5 mg/ Prazosin 6 mg 07/16/25 21:00 07/17/25 20:54 HCl 1 mg PO 6 mg BEDTIME YOBANI Administration Propranolol HCl 20 mg 07/10/25 21:05 07/17/25 17:14 Propranolol Hcl 20 Mg Tablet PO 20 mg BID PRN Administration Anxiety Protocol Pseudoephedrine HCl 30 mg 07/12/25 20:44 07/12/25 21:19 Pseudoephedrine Hcl 30 Mg Tablet PO 30 mg Q6H PRN Administration Congestion Trazodone HCl 200 mg 07/11/25 21:00 07/17/25 20:54 Trazodone Hcl 100 Mg Tablet PO 200 mg BEDTIME YOBANI Administration Trazodone HCl 50 mg 07/12/25 00:41 07/17/25 21:56 Trazodone Hcl 50 Mg Tablet PO 50 mg BEDTIME MRX1 PRN Administration Insomnia Discontinued Medications Generic Name Dose Route Start Last Admin Trade Name Rajiq PRN Reason Stop Dose Admin Brexpiprazole 1 mg 07/12/25 09:00 07/16/25 08:32 Brexpiprazole 1 Mg Tablet PO 1 mg DAILY YOBANI Administration Quinlan Carbonate 300 mg 07/11/25 21:00 07/14/25 20:32 Quinlan Carbonate Er 300 Mg Tablet.Er PO 300 mg BEDTIME YOBANI Administration Lorazepam 1 mg 07/10/25 17:55 07/10/25 17:58 Lorazepam 1 Mg Tablet PO 07/10/25 17:56 1 mg ONCE ONE Administration Losartan Potassium 25 mg 07/11/25 09:00 07/11/25 08:57 Losartan Potassium 25 Mg Tablet PO 25 mg DAILY YOBANI Administration Protocol Lurasidone HCl 80 mg 07/11/25 17:00 07/11/25 18:03 Lurasidone Hcl 80 Mg Tablet PO Not Given DAILY@1700 YOBANI Lurasidone HCl 20 mg 07/11/25 17:00 07/11/25 18:03 Lurasidone Hcl 20 Mg Tablet PO Not Given DAILY@1700 YOBANI Lurasidone HCl 80 mg 07/11/25 21:00 07/14/25 20:38 Lurasidone Hcl 80 Mg Tablet PO Not Given BEDTIME YOBANI Prazosin HCl 2 mg 07/10/25 21:15 07/12/25 20:34 Prazosin Hcl 1 Mg Capsule PO 2 mg BEDTIME YOBANI Administration Protocol Prazosin HCl 4 mg 07/13/25 21:00 07/13/25 20:47 Prazosin Hcl 1 Mg Capsule PO 4 mg BEDTIME YOBANI Administration Protocol Prazosin HCl 5 mg 07/14/25 21:00 07/15/25 21:01 Prazosin Hcl 5 Mg Capsule PO 5 mg BEDTIME YOBANI Administration Protocol Trazodone HCl 100 mg 07/10/25 21:15 07/10/25 21:22 Trazodone Hcl 100 Mg Tablet PO 100 mg BEDTIME YOBANI Administration Valproic Acid 250 mg 07/11/25 09:00 07/11/25 12:11 Valproic Acid 250 Mg Capsule PO 250 mg DAILY YOBANI Administration Medical Decision Making Medical Decision Making [facility] Narrative: Patient is a 49-year-old male with history of anxiety, bipolar disorder, PTSD, hypertension presenting to the emergency department with complaint of ongoing depression and suicidal ideation. On exam patient is awake, A+Ox3, VS WNL, afebrile, normal neurological exam without focal deficits, physical exam findings as above. Given reported symptoms and physical exam findings, initial differential includes but is not limited to depression, anxiety, suicidal ideation. Labs unremarkable. Urine drug screen and ethanol negative. Will medically clear patient at this time for care team evaluation. Patient requesting lorazepam for anxiety, will order as patient is prescribed this regularly. Differential Diagnosis Differential Diagnoses: The differential diagnosis associated with the presentation includes As per [facility] Admission/Observation Consideration of admission/observation: Escalation of care including admission/observation considered Consult Healthcare Provider Management of the patient was discussed with: Behavioral Health Provider Lab Data [facility] Lab Attestation statement: I reviewed the patient's lab results. as per [facility] 07/10/25 16:53 07/10/25 16:53 Labs: Lab Results 07/10/25 07/10/25 Range/Units 16:51 16:53 WBC 8.5 (4.8-10.8) X10*3/uL RBC 4.91 (4.60-5.80) X10*6/uL Hgb 14.9 (14.0-18.0) g/dl Hct 42.9 (42.0-52.0) % MCV 87.4 (80.0-98.0) fL MCH 30.3 (27.0-33.0) pg MCHC 34.7 (31.0-36.0) g/dl RDW 12.3 (11.0-16.0) % Plt Count 242 (160-400) X10*3/uL MPV 8.9 L (9.4-12.4) fL Immature Gran % (Auto) 0.5 H (0.0-0.4) % Neut % (Auto) 42.0 L (45-73) % Lymph % (Auto) 48.1 H (20-40) % [place] % (Auto) 6.1 (2-11) % Eos % (Auto) 2.8 (0-4) % Baso % (Auto) 0.5 (0-2) % Lymph # (Auto) 4.1 (1.2-4.9) X10*3/uL [place] # (Auto) 0.5 (0.1-1.2) X10*3/uL Eos # (Auto) 0.2 (0.0-0.4) X10*3/uL Baso # (Auto) 0.0 (0.0-0.2) X10*3/uL Abs Immat Gran (auto) 0.04 H (0.00-0.03) X10*3/uL Absolute Neuts (auto) 3.6 (2.0-8.3) x10*3/uL Absolute Nucleated RBC 0.000 (0.0-0.012) X10*3/uL Nucleated RBC % (auto) 0.0 (0.0-0.2) /100WBC Sodium 141 (135-145) mmol/L Potassium 4.2 (3.3-5.1) mmol/L Chloride 105 (96-108) mmol/L Carbon Dioxide 27 (22-29) mmol/L Anion Gap 13 (12-20) BUN 28 H (9-16) mg/dL Creatinine 1.17 (0.5-1.4) mg/dL Estim Creat Clear Calc 92.0 Estimated GFR > 60 Random Glucose 98 (60-115) mg/dL Calcium 9.1 (8.4-10.2) mg/dL Total Bilirubin 0.6 (0.0-1.0) mg/dL AST 33 (5-37) U/L ALT 48 H (0-40) U/L Alkaline Phosphatase 65 (39-117) U/L Total Protein 7.3 (6.5-8.0) g/dL Albumin 4.3 (3.5-5.0) g/dL Urine Color Dark Yellow Urine Appearance Clear Urine pH 6.0 (5.0-9.0) Ur Specific [place] 1.025 (1.005-1.025) Urine Protein Negative (Neg-Trace) mg/dL Urine Glucose (UA) Negative (Negative) mg/dL Urine Ketones Negative (Negative) mg/dL Urine Blood Negative (Negative) Urine Nitrite Negative (Negative) Ur Leukocyte Esterase Negative (Negative) Urine Opiates Screen Not Detected (Not Detect) Ur Buprenorphine Scrn Not Detected (Not Detect) ng/mL Ur Oxycodone Screen Not Detected (Not Detect) ng/mL Urine Methadone Screen Not Detected (Not Detect) ng/mL Urine Fentanyl Screen Not Detected (Not Detect) Ur Barbiturates Screen Not Detected (Not Detect) Ur Phencyclidine Scrn Not Detected (Not Detect) Ur Amphetamines Screen Not Detected (Not Detect) U Benzodiazepines Scrn Not Detected (Not Detect) Urine Cocaine Screen Not Detected (Not Detect) U Marijuana (THC) Screen Not Detected (Not Detect) Ethyl Alcohol < 10 mg/dL External Record Review External record reviewed: Inpatient record, Office record and Outpatient record Discharge Plan Discharge Clinical Impression: Depression, Suicidal ideation Patient Disposition: Admitted As Inpatient Discharge Date/Time: 07/11/25 18:00
[2025-07-10 16:59] LABS: MANUAL DIFF FLAG NO
[2025-07-10 17:02] LABS: Hematocrit 42.9 % (42.0-52.0); Hemoglobin 14.9 g/dl (14.0-18.0); Imm Gran Abs Auto 0.04 X10*3/uL (0.00-0.03); Imm Gran Pct Auto 0.5 % (0.0-0.4); Lymphocytes Absolute Auto 4.1 X10*3/uL (1.2-4.9); Mean Corpuscular HGB Conc 34.7 g/dl (31.0-36.0); Mean Corpuscular Hemoglobin 30.3 pg (27.0-33.0); Mean Corpuscular Volume 87.4 fL (80.0-98.0); NRBC Abs Auto 0.000 X10*3/uL (0.0-0.012); NRBC Pct Auto 0.0 /100WBC (0.0-0.2); Platelet Count 242 X10*3/uL (160-400); Red Blood Count 4.91 X10*6/uL (4.60-5.80); White Blood Count 8.5 X10*3/uL (4.8-10.8)
[2025-07-10 17:11] LABS: Cannabinoid Screen Urine Not Detected (Not Detect)
[2025-07-10 17:19] LABS: Appearance Urine Clear; Glucose Urine UA Negative (Negative); PH 6.0 (5.0-9.0); Specific Gravity - Urine 1.025 (1.005-1.025)
[2025-07-10 17:20] LABS: Alanine Aminotransferase 48 U/L (0-40); Albumin Level 4.3 g/dL (3.5-5.0); Alkaline Phosphatase 65 U/L (39-117); Anion Gap 13 (12-20); Aspartate Amino Transferase 33 U/L (5-37); Blood Urea Nitrogen 28 mg/dL (9-16); Calcium 9.1 mg/dL (8.4-10.2); Carbon Dioxide 27 mmol/L (22-29); Chloride 105 mmol/L (96-108); Creatinine Clr Calc Pharmacy 92.0; Estimated Glomerular Filt Rate > 60; Potassium 4.2 mmol/L (3.3-5.1); Sodium 141 mmol/L (135-145); Total Protein 7.3 g/dL (6.5-8.0)
--- NOTE | 2025-07-10 18:20 | PC.NURSE ---
ASSUMED CARE OF PT AT APPROXIMATELY 1730. PT APPEARED TO BE RESTLESS. HE WAS SEEN BY MED PROVIDER FOR MEDICAL CLEARANCE. PT REQUESTED ATIVAN FOR ANXIETY. 1MG OF ATIVAN GIVEN BY RN. PT APPEARS CALM AND IS SPEAKING TO CARE TEAM AT THIS TIME. NO APPARENT DISTRESS.
--- NOTE | 2025-07-10 23:31 | PC.NURSE ---
Took over at 23:00 medicated per jan. pt given sandwich and pudding.
--- NOTE | 2025-07-11 02:46 | PC.NURSE ---
pt sleeping at this time.
--- NOTE | 2025-07-11 07:38 | ECG_ITS ---
Test Reason : r/o prolonged qt Blood Pressure : */* mmHG Vent. Rate : 59 BPM Atrial Rate : 59 BPM P-R Int : 164 ms QRS Dur : 94 ms QT Int : 424 ms P-R-T Axes : 42 44 42 degrees QTcB Int : 419 ms Sinus bradycardia Otherwise normal ECG When compared with ECG of 07-Jun-2025 11:50, No significant change was found Referred By: Aleena Weiss Electronically Signed By: CLOVIS MONCADA MD
[2025-07-11 08:57] VITALS: BP 110/62; PULSE 71; RESP 14; TEMP 36.8; O2SAT 99
--- NOTE | 2025-07-11 11:26 | PHA.MEDREC ---
Pharmacy Consult ? Medication Reconciliation Pharmacy has completed the medication reconciliation. Spoke to patient to confirm med list. Patient confirmed he is taking divalproex 1000 mg at bedtime and not taking valproic acid (depakene). His dose of latuda has increased to 100 mg daily and trazodone is 200 mg at bedtime. Per patient, he is NOT taking losartan, buspirone nor clonidine.
[2025-07-11 18:02] VITALS: BP 145/90; PULSE 98
--- NOTE | 2025-07-11 18:07 | PC.NURSE ---
07/11/25 pt had elevated bp of 145/90, propanolol given. Syeda Bueno NP aware
[2025-07-11 18:16] VITALS: BP 145/90; PULSE 80; RESP 16; TEMP 36.8; O2SAT 98
[2025-07-11 18:34] VITALS: BMI 32.3
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
[2025-07-11 19:30] VITALS: BP 150/109; PULSE 79; RESP 16; TEMP 36.8; O2SAT 96
[2025-07-11 20:47] VITALS: BP 139/85
--- NOTE | 2025-07-11 20:58 | HO.PSYADMNOT ---
HPI Date of Service: 07/11/25 Chief Complaint: PTSD; Bipolar disorder Sources of Information: patient interviewed, chart reviewed and crisis/core team assessment reviewed HPI Subjective Notes: Gonzalez Warning and Conditional Voluntary Healthcare Proxy: No Guardianship: No Medical Problems Affecting Mental Status: No Narrative: Per care team note: Patient is a 49 years old bilingual speaking male with history of unspecified bipolar d/o and PTSD who self presented reported SI with a plan to overdose. Increased anxiety and depression which has impacting his ability to function and attended to ADLs for the past week. It was here admitted to [facility] back in May 31 with the same presentation. On [facility]: Reported that he has been doing well the discharge from here for a couple weeks however he started feeling more depressed and anxiety which make him have suicidal thoughts with plan to take his pills. Reported that he gained too much weight, sleep a lot during the day not at night, having vivid dreams. Reported that his Depakote is not working he does not want to be on Latuda anymore due to food intake before taking medication, reports he has been taking medication, started working out, exercise to be healthy, but he has no known antigen no motivation to do it anymore. He was he can be manic instead of being depressed. He ambivalence regarding medication, however appeared to be calm, less irritable when we come up with a plan of medications. He agreed to continue with the Depakote but add lithium on. Reports history of taking lithium but is having decrease his sex drive. He agreed to taper down on Latuda instead of stopped abruptly. He wants to restart on Rexulti which he was taking in the past couple of years ago. He was not sure if it is not working or working as he was doing drugs at the same time. We also discussed ECT history, she had done in the past probably 15 years ago. Again he was not sure if it is not working or working due to the fact that he was using drugs at the same time back then. He feel disappointed that there is a lot of medication trials that not able to help him less depressed. Explained to him genetic component, and lots of other components contributed to his depression such as unemployed,, not having structure, sober house living environment, and other factors contribute to his presentation. He has good outpatient psychiatric services, therapist and PCP He would like to start the PHP this time after discharge and may think about ECT option. Denies SI/SIB/HI/AVHy, depressed, somewhat irritable, however calmer and cooperative at the end of the conversation, feeling released after we came up with the medication plan. Sleeping parents have been upside down. Mood is depressed, and irritable. No current drug use. Been seen off cocaine for the past 5 months. Past Psychiatric History: History of multiple inpatient psychiatric hospitalizations. treatment?trials: [facility];?cause?sexual?side?effects?so?switch?to?Depakote?which?he?says?works?well. Seroquel, Thorazine, Buspar, Abilify, Wellbutrin, Mirtazepine, Gabapentin, Zyprexa: have not been that helpful. Reports?ECT?in?the?past,?3?independent?times Prescriber: Ryne ([place]) Therapist: does not have one at this time. hx of SIB: denies Medical Evaluation Reviewed: Yes [facility] Medical History Suicidal ideation Post traumatic stress disorder Alcohol use disorder Cocaine use disorder Hypertension Anxiety Depression Family History: Brother: Depression Sister: Anxiety Social History: Lives in a sober home. single and . One adult daughter who he does not speak to. Disability. Highest level of education completed high school diploma. Substance History: Not current use. Past history of cocaine use with last use was 5 months ago. No alcohol intake. No marijuana. Smoke up to 3 cigarettes a day Trauma History: patient states he was traumatized by his divorce and inability to see his daughter. Diagnostics Vital Signs (24Hr): Vital Signs - 24 hr 07/11/25 08:57 07/11/25 18:02 07/11/25 18:16 Temperature 98.2 F 98.2 F Pulse Rate 71 98 80 Respiratory Rate 14 16 Blood Pressure 110/62 145/90 H 145/90 H Pulse Oximetry 99 98 Oxygen Delivery Method Room Air Room Air 07/11/25 19:30 07/11/25 20:47 Temperature 98.3 F Pulse Rate 79 Respiratory Rate 16 Blood Pressure 150/109 H 139/85 Pulse Oximetry 96 Oxygen Delivery Method Room Air BMI result Body Mass Index 32.3 Labs 07/10/25 16:53 07/10/25 16:53 Labs: Laboratory Results - last 48 hr 07/10/25 07/10/25 16:51 16:53 WBC 8.5 RBC 4.91 Hgb 14.9 Hct 42.9 MCV 87.4 MCH 30.3 MCHC 34.7 RDW 12.3 Plt Count 242 MPV 8.9 L Immature Gran % (Auto) 0.5 H Neut % (Auto) 42.0 L Lymph % (Auto) 48.1 H [place] % (Auto) 6.1 Eos % (Auto) 2.8 Baso % (Auto) 0.5 Lymph # (Auto) 4.1 [place] # (Auto) 0.5 Eos # (Auto) 0.2 Baso # (Auto) 0.0 Abs Immat Gran (auto) 0.04 H Absolute Neuts (auto) 3.6 Absolute Nucleated RBC 0.000 Nucleated RBC % (auto) 0.0 Sodium 141 Potassium 4.2 Chloride 105 Carbon Dioxide 27 Anion Gap 13 BUN 28 H Creatinine 1.17 Estim Creat Clear Calc 92.0 Estimated GFR > 60 Random Glucose 98 Calcium 9.1 Total Bilirubin 0.6 AST 33 ALT 48 H Alkaline Phosphatase 65 Total Protein 7.3 Albumin 4.3 Urine Color Dark Yellow Urine Appearance Clear Urine pH 6.0 Ur Specific [place] 1.025 Urine Protein Negative Urine Glucose (UA) Negative Urine Ketones Negative Urine Blood Negative Urine Nitrite Negative Ur Leukocyte Esterase Negative Urine Opiates Screen Not Detected Ur Buprenorphine Scrn Not Detected Ur Oxycodone Screen Not Detected Urine Methadone Screen Not Detected Urine Fentanyl Screen Not Detected Ur Barbiturates Screen Not Detected Ur Phencyclidine Scrn Not Detected Ur Amphetamines Screen Not Detected U Benzodiazepines Scrn Not Detected Urine Cocaine Screen Not Detected U Marijuana (THC) Screen Not Detected Ethyl Alcohol < 10 Meds/Allergies Meds Home Medications ?Medication ?Instructions ?Recorded ?Confirmed ?Type propranolol 20 mg tablet 20 mg PO BID PRN Anxiety 05/11/25 07/10/25 History lurasidone 20 mg tablet 100 mg PO DAILY@1700 07/11/25 07/11/25 History trazodone 100 mg tablet 200 mg PO BEDTIME PRN Sleep 07/11/25 07/11/25 History Allergies Allergies Allergy/AdvReac Type Severity Reaction Status Date / Time duloxetine (From CYMBALTA) Allergy Unknown RASH Verified 07/10/25 16:23 shrimp Allergy Anaphylaxis Verified 07/10/25 16:23 Mental Status Exam Mental Status Exam Narrative: Patient presents well-groomed, wearing hospital at time. Affect is constricted. Speech is clear and coherent. Thought process is linear and logical. Thought content is appropriate and relevant. Patient denies suicidal or homicidal ideation intent or plan. No overt psychotic symptoms elicited. Insight is fair. Judgment is poor. No delusional or paranoid statements made. Some what irritable, increased depression and anxiety. . Assessment & Plan Assessment & Plan (1) PTSD (post-traumatic stress disorder): Status: Acute Code(s): F43.10 - Post-traumatic stress disorder, unspecified (2) Bipolar disorder, now depressed: Status: Acute Qualifiers: Current episode severity: unspecified Qualified Code(s): F31.30 - Bipolar disorder, current episode depressed, mild or moderate severity, unspecified Code(s): F31.30 - Bipolar disorder, current episode depressed, mild or moderate severity, unspecified (3) Suicidal ideation: Status: Acute Code(s): R45.851 - Suicidal ideations Plan HPI: Patient is a 49 years old bilingual speaking male with history of unspecified bipolar d/o and PTSD who self presented reported SI with a plan to overdose. Increased anxiety and depression which has impacting his ability to function and attended to ADLs for the past weeks. He was here admitted to [address] in May 31 with the same presentation. Formulation/clinical reasoning: Increased depression, anxiety, and SI with plan overdose on medication the past couple weeks after discharge from the hospital. History of numerous inpatient level of care admission, history of wants suicide attempt when he was [age] years old via overdose on medications. History of bipolar, PTSD. Even the above information, patient will be benefit in restrictive environment for medication judgment, provide therapeutic environment to keep him safe and learn coping skills, and refer patient back to outpatient psychiatry services upon discharge. Hospital course: 07/11/25: He can be a good candidate for ECT treatment, history of ECT treatment about 15 years ago Taper down on Latuda per patient requests. He also agreed to take medication at bedtime instead 1700 to see if actually help with not sleeping during the day. Latuda from 100 mg down to 80 mg scheduled at bedtime, even with food. Add lithium on as a second mood stabilizer: [facility] 300 at bedtime. History of taking this lower sex drive as side effects, he is aware and wanted to back on. Continue with Depakote extended release a 1000 at bedtime. He used to take 1250 mg. We will confirm and increase if necessary. Level prior to discharge was sub therapeutic. Patient aware to inform his outpatient psychiatrist, but dose not increased. Rexulti 1 mg daily in the morning for mood. Continue with prazosin, Remeron and trazodone. Reports vivid dream from trazodone. Add melatonin 9 mg at bedtime as needed for insomnia. Plan Patient on 15 minute checks for safety. Admitted to [facility]. CV. Work with treatment team to do collateral. He good like to step-down to [facility] upon discharge for aftercare. He opens for ECT treatment. VPA level for 07/12 and labs works. BUN slightly elevated. Patient educated on: diagnosis, medication risk/benefits, substance abuse and therapeutic strategies Informed Consent: understands and further education needed Reason for continued inpatient stay Substantial Risk for: med/psych decompensation Statement Statement: I have reviewed the history and physical and performed a pertinent examination on my patient. No changes have occurred unless specified. If the History and Physical was not performed prior to admission, the Hospitalist's service will be consulted for completing the admission physical. Time Spent With Patient Time: Total time managing care of this patient today ____ minutes.
[2025-07-12 07:42] VITALS: BP 136/94; PULSE 77; RESP 18; TEMP 36.3; O2SAT 97
[2025-07-12 07:51] LABS: Hemoglobin A1C 127.6744 umol/L; Total Hemoglobin (HGBA1C) 3758.1972 umol/L
[2025-07-12 08:23] LABS: Cholesterol 169 mg/dL (<200); HDL Cholesterol 28 mg/dL (>40); Magnesium 1.9 mg/dL (1.6-2.6); Triglycerides 261 mg/dL (<150)
[2025-07-12 08:25] LABS: Free T4 (Free Thyroxine) 1.34 ng/dL (0.71-1.85); Thyroid Stimulating Hormone 0.97 uIU/mL (0.32-4.0)
[2025-07-12 08:41] LABS: Folate 10.5 ng/mL (> or = 4.0); Vitamin B12 682 pg/mL (200-900)
--- NOTE | 2025-07-12 09:25 | P.PNPSI_ITS ---
Subjective Subjective Date of Service: 07/12/25 Reason For Visit: PTSD; Bipolar disorder Subjective Notes: Conditional Voluntary Interim History: Keeping to self. laying in bed most of shift. Patient reports feeling depressed; pt stated, I don't think my medications are right. I want to think about maybe getting ECT again . denies SI/HI/VH/AH .Continue current tx plan. Medication Compliance: Yes Side effects from medications: No Attending Groups: No Mental Status Exam Mental Status Exam Patient Appearance: Disheveled Patient Orientation: Person, Place, Time and Situation Level of Consciousness: Awake Patient Behavior: Appropriate, Cooperative and Good Eye Contact Mood Description: Depressed and Anxious Affect Description: Depressed Ability to Follow Directions: Good Speech Pattern: Clear Memory Description: Intact Hallucinations: None Delusions: Not Present Thought Process: Intact and Goal Oriented Thought Content: positive for Intact Diagnostics Vital Signs (24Hr): Vital Signs - 24 hr 07/11/25 18:02 07/11/25 18:16 07/11/25 19:30 Temperature 98.2 F 98.3 F Pulse Rate 98 80 79 Respiratory Rate 16 16 Blood Pressure 145/90 H 145/90 H 150/109 H Pulse Oximetry 98 96 Oxygen Delivery Method Room Air Room Air 07/11/25 20:47 07/12/25 07:42 Temperature 97.4 F Pulse Rate 77 Respiratory Rate 18 Blood Pressure 139/85 136/94 H Pulse Oximetry 97 Oxygen Delivery Method Room Air BMI result Body Mass Index 32.3 Labs 07/10/25 16:53 07/10/25 16:53 Labs: Laboratory Results - last 48 hr 07/10/25 07/10/25 07/12/25 16:51 16:53 07:11 WBC 8.5 RBC 4.91 Hgb 14.9 Hct 42.9 MCV 87.4 MCH 30.3 MCHC 34.7 RDW 12.3 Plt Count 242 MPV 8.9 L Immature Gran % (Auto) 0.5 H Neut % (Auto) 42.0 L Lymph % (Auto) 48.1 H [place] % (Auto) 6.1 Eos % (Auto) 2.8 Baso % (Auto) 0.5 Lymph # (Auto) 4.1 [place] # (Auto) 0.5 Eos # (Auto) 0.2 Baso # (Auto) 0.0 Abs Immat Gran (auto) 0.04 H Absolute Neuts (auto) 3.6 Absolute Nucleated RBC 0.000 Nucleated RBC % (auto) 0.0 Sodium 141 Potassium 4.2 Chloride 105 Carbon Dioxide 27 Anion Gap 13 BUN 28 H Creatinine 1.17 Estim Creat Clear Calc 92.0 Estimated GFR > 60 Random Glucose 98 Estimat Average Glucose 105 Hemoglobin A1c % 5.3 Calcium 9.1 Magnesium 1.9 Total Bilirubin 0.6 AST 33 ALT 48 H Alkaline Phosphatase 65 Total Protein 7.3 Albumin 4.3 Triglycerides 261 H Cholesterol 169 LDL Cholesterol, Calc 89 HDL Cholesterol 28 L Vitamin B12 682 Folate 10.5 TSH 0.97 Free T4 1.34 Urine Color Dark Yellow Urine Appearance Clear Urine pH 6.0 Ur Specific [place] 1.025 Urine Protein Negative Urine Glucose (UA) Negative Urine Ketones Negative Urine Blood Negative Urine Nitrite Negative Ur Leukocyte Esterase Negative Urine Opiates Screen Not Detected Ur Buprenorphine Scrn Not Detected Ur Oxycodone Screen Not Detected Urine Methadone Screen Not Detected Urine Fentanyl Screen Not Detected Ur Barbiturates Screen Not Detected Valproic Acid 54.2 Ur Phencyclidine Scrn Not Detected Ur Amphetamines Screen Not Detected U Benzodiazepines Scrn Not Detected Urine Cocaine Screen Not Detected U Marijuana (THC) Screen Not Detected Ethyl Alcohol < 10 Medications Medications Current Medications Acetaminophen (Acetaminophen 325 Mg Tablet) 650 mg PO Q6H PRN PRN Reason: Headache/Pain, Scale 1-10 Al Hydroxide/Mg Hydroxide (Magnesium Hydrox/Alum Hydrox 30 Ml Oral.Susp) 30 ml PO Q6H PRN PRN Reason: Heartburn/Nausea Brexpiprazole (Brexpiprazole 1 Mg Tablet) 1 mg PO DAILY [facility] Last Admin: 07/12/25 08:28 Dose: 1 mg Divalproex Sodium (Divalproex Sodium 500 Mg Tablet.Dr) 1,000 mg PO BEDTIME YOBANI Last Admin: 07/11/25 20:48 Dose: 1,000 mg Hydroxyzine HCl (Hydroxyzine Hcl 50 Mg Tablet) 50 mg PO Q8H PRN PRN Reason: Anxiety Last Admin: 07/11/25 22:34 Dose: 50 mg [place] Carbonate ([place] Carbonate Er 300 Mg Tablet.Er) 300 mg PO BEDTIME YOBANI Last Admin: 07/11/25 20:47 Dose: 300 mg Lorazepam (Lorazepam 1 Mg Tablet) 1 mg PO DAILY PRN PRN Reason: Anxiety Last Admin: 07/11/25 08:57 Dose: 1 mg Lurasidone HCl (Lurasidone Hcl 80 Mg Tablet) 80 mg PO BEDTIME YOBANI Last Admin: 07/11/25 20:46 Dose: 80 mg Magnesium Hydroxide (Milk Of Magnesia 30 Ml Oral.Susp) 30 ml PO DAILY PRN PRN Reason: Constipation Melatonin (Melatonin 3 Mg Tablet) 9 mg PO BEDTIME PRN PRN Reason: Insomnia Last Admin: 07/11/25 22:34 Dose: 9 mg Mirtazapine (Mirtazapine 30 Mg Tablet) 30 mg PO BEDTIME YOBANI Last Admin: 07/11/25 20:48 Dose: 30 mg Naproxen (Naproxen 500 Mg Tablet) 500 mg PO Q12H PRN PRN Reason: Knee and shoulder pain Last Admin: 07/12/25 08:35 Dose: 500 mg Nicotine Polacrilex (Nicotine Polacrilex 2 Mg Gum) 4 mg BUCCAL Q2H PRN PRN Reason: Nicotine Cravings Prazosin HCl (Prazosin Hcl 1 Mg Capsule) 2 mg PO BEDTIME YOBANI; Protocol Last Admin: 07/11/25 20:47 Dose: 2 mg Propranolol HCl (Propranolol Hcl 20 Mg Tablet) 20 mg PO BID PRN; Protocol PRN Reason: Anxiety Last Admin: 07/11/25 18:02 Dose: 20 mg Trazodone HCl (Trazodone Hcl 100 Mg Tablet) 200 mg PO BEDTIME YOBANI Last Admin: 07/11/25 20:47 Dose: 200 mg Trazodone HCl (Trazodone Hcl 50 Mg Tablet) 50 mg PO BEDTIME MRX1 PRN PRN Reason: Insomnia Allergies Allergies Allergy/AdvReac Type Severity Reaction Status Date / Time duloxetine (From CYMBALTA) Allergy Unknown RASH Verified 07/10/25 16:23 shrimp Allergy Anaphylaxis Verified 07/10/25 16:23 Assessment & Plan Assessment & Plan (1) PTSD (post-traumatic stress disorder): Status: Acute Code(s): F43.10 - Post-traumatic stress disorder, unspecified (2) Bipolar disorder, now depressed: Qualifiers: Current episode severity: unspecified Qualified Code(s): F31.30 - Bipolar disorder, current episode depressed, mild or moderate severity, unspecified Status: Acute Code(s): F31.30 - Bipolar disorder, current episode depressed, mild or moderate severity, unspecified (3) Suicidal ideation: Status: Acute Code(s): R45.851 - Suicidal ideations Plan HPI: Patient is a 49 years old bilingual speaking male with history of unspecified bipolar d/o and PTSD who self presented reported SI with a plan to overdose. Increased anxiety and depression which has impacting his ability to function and attended to ADLs for the past weeks. He was here admitted to back in May 31 with the same presentation. Formulation/clinical reasoning: Increased depression, anxiety, and SI with plan overdose on medication the past couple weeks after discharge from the hospital. History of numerous inpatient level of care admission, history of wants suicide attempt when he was [age] years old via overdose on medications. History of bipolar, PTSD. Even the above information, patient will be benefit in restrictive environment for medication judgment, provide therapeutic environment to keep him safe and learn coping skills, and refer patient back to outpatient psychiatry services upon discharge. Hospital course: 07/11/25: He can be a good candidate for ECT treatment, history of ECT treatment about 15 years ago Taper down on Latuda per patient requests. He also agreed to take medication at bedtime instead 1700 to see if actually help with not sleeping during the day. Latuda from 100 mg down to 80 mg scheduled at bedtime, even with food. Add lithium on as a second mood stabilizer: [place] [facility] 300 at bedtime. History of taking this lower sex drive as side effects, he is aware and wanted to back on. Continue with Depakote extended release a 1000 at bedtime. He used to take 1250 mg. We will confirm and increase if necessary. Level prior to discharge was sub therapeutic. Patient aware to inform his outpatient psychiatrist, but dose not increased. Rexulti 1 mg daily in the morning for mood. Continue with prazosin, Remeron and trazodone. Reports vivid dream from trazodone. Add melatonin 9 mg at bedtime as needed for insomnia. Plan Patient on 15 minute checks for safety. Admitted to . CV. Work with treatment team to do collateral. He good like to step-down to [facility] upon discharge for aftercare. He opens for ECT treatment. VPA level for 07/12 and labs works. BUN slightly elevated. 07/12: Keeping to self. laying in bed most of shift. Patient reports feeling depressed; pt stated, I don't think my medications are right. I want to think about maybe getting ECT again . denies SI/HI/VH/AH .Continue current tx plan. Patient educated on: diagnosis, medication risk/benefits and therapeutic strategies Reason for continued inpatient stay Substantial Risk for: med/psych decompensation Time Spent With Patient Time: Total time managing care of this patient today _20___ minutes.
[2025-07-12 20:00] VITALS: BP 138/71; PULSE 79; RESP 16; TEMP 36.8; O2SAT 97
[2025-07-12 20:34] VITALS: BP 138/71
[2025-07-13 07:05] VITALS: BP 122/78; PULSE 75; RESP 18; TEMP 36.6; O2SAT 97
--- NOTE | 2025-07-13 07:50 | HO.PSYCHPN ---
Subjective Subjective Date of Service: 07/13/25 Reason For Visit: PTSD; Bipolar disorder Subjective Notes: Conditional Voluntary Interim History: patient reports feeling tired, depressed and anxious and unsure if ECT might be a good option for him. Still having nightmares. Isolative in bed. Intermittent hopelessness and thoughts of . No psychosis. Noted lithium just started and will order level for after the weekend. Will increase prazosin to 4 mg Medication Compliance: Yes Side effects from medications: No Attending Groups: No Review of Systems Review of Systems unremarkable Mental Status Exam Mental Status Exam Narrative: Patient presents well-groomed, wearing hospital at time. Affect is constricted. Speech is clear and coherent. Thought process is linear and logical. Thought content is appropriate and relevant. depressed and anxious. Patient denies suicidal or homicidal ideation intent or plan, but is hopeless at times. No overt psychotic symptoms elicited. Insight is fair. Judgment is poor. No delusional or paranoid statements made. Insight and judgment fair Diagnostics Vital Signs (24Hr): Vital Signs - 24 hr 07/12/25 20:00 07/12/25 20:34 07/13/25 07:05 Temperature 98.3 F 97.8 F Pulse Rate 79 75 Respiratory Rate 16 18 Blood Pressure 138/71 138/71 122/78 Pulse Oximetry 97 97 Oxygen Delivery Method Room Air Room Air BMI result Body Mass Index 32.3 Labs 07/10/25 16:53 07/10/25 16:53 Labs: Laboratory Results - last 48 hr 07/12/25 07:11 Estimat Average Glucose 105 Hemoglobin A1c % 5.3 Magnesium 1.9 Triglycerides 261 H Cholesterol 169 LDL Cholesterol, Calc 89 HDL Cholesterol 28 L Vitamin B12 682 Folate 10.5 TSH 0.97 Free T4 1.34 Valproic Acid 54.2 Medications Medications Current Medications Acetaminophen (Acetaminophen 325 Mg Tablet) 650 mg PO Q6H PRN PRN Reason: Headache/Pain, Scale 1-10 Al Hydroxide/Mg Hydroxide (Magnesium Hydrox/Alum Hydrox 30 Ml Oral.Susp) 30 ml PO Q6H PRN PRN Reason: Heartburn/Nausea Brexpiprazole (Brexpiprazole 1 Mg Tablet) 1 mg PO DAILY [facility] Last Admin: 07/12/25 08:28 Dose: 1 mg Divalproex Sodium (Divalproex Sodium 500 Mg Tablet.) 1,000 mg PO BEDTIME [facility] Last Admin: 07/12/25 20:33 Dose: 1,000 mg Hydroxyzine HCl (Hydroxyzine Hcl 50 Mg Tablet) 50 mg PO Q8H PRN PRN Reason: Anxiety Last Admin: 07/12/25 16:14 Dose: 50 mg [place] Carbonate ([place] Carbonate Er 300 Mg Tablet.Er) 300 mg PO BEDTIME [facility] Last Admin: 07/12/25 20:35 Dose: 300 mg Lorazepam (Lorazepam 1 Mg Tablet) 1 mg PO DAILY PRN PRN Reason: Anxiety Last Admin: 07/12/25 10:51 Dose: 1 mg Lurasidone HCl (Lurasidone Hcl 80 Mg Tablet) 80 mg PO BEDTIME [facility] Last Admin: 07/12/25 20:34 Dose: 80 mg Magnesium Hydroxide (Milk Of Magnesia 30 Ml Oral.Susp) 30 ml PO DAILY PRN PRN Reason: Constipation Melatonin (Melatonin 3 Mg Tablet) 9 mg PO BEDTIME PRN PRN Reason: Insomnia Last Admin: 07/11/25 22:34 Dose: 9 mg Mirtazapine (Mirtazapine 30 Mg Tablet) 30 mg PO BEDTIME [facility] Last Admin: 07/12/25 20:36 Dose: 30 mg Naproxen (Naproxen 500 Mg Tablet) 500 mg PO Q12H PRN PRN Reason: Knee and shoulder pain Last Admin: 07/12/25 08:35 Dose: 500 mg Nicotine Polacrilex (Nicotine Polacrilex 2 Mg Gum) 4 mg BUCCAL Q2H PRN PRN Reason: Nicotine Cravings Prazosin HCl (Prazosin Hcl 1 Mg Capsule) 2 mg PO BEDTIME [facility]; Protocol Last Admin: 07/12/25 20:34 Dose: 2 mg Propranolol HCl (Propranolol Hcl 20 Mg Tablet) 20 mg PO BID PRN; Protocol PRN Reason: Anxiety Last Admin: 07/11/25 18:02 Dose: 20 mg Pseudoephedrine HCl (Pseudoephedrine Hcl 30 Mg Tablet) 30 mg PO Q6H PRN PRN Reason: Congestion Last Admin: 07/12/25 21:19 Dose: 30 mg Trazodone HCl (Trazodone Hcl 100 Mg Tablet) 200 mg PO BEDTIME [facility] Last Admin: 07/12/25 20:34 Dose: 200 mg Trazodone HCl (Trazodone Hcl 50 Mg Tablet) 50 mg PO BEDTIME MRX1 PRN PRN Reason: Insomnia Last Admin: 07/12/25 23:20 Dose: 50 mg Allergies Allergies Allergy/AdvReac Type Severity Reaction Status Date / Time duloxetine (From [facility]) Allergy Unknown RASH Verified 07/10/25 16:23 shrimp Allergy Anaphylaxis Verified 07/10/25 16:23 Assessment & Plan Assessment & Plan (1) PTSD (post-traumatic stress disorder): Status: Acute Code(s): F43.10 - Post-traumatic stress disorder, unspecified (2) Bipolar disorder, now depressed: Qualifiers: Current episode severity: unspecified Qualified Code(s): F31.30 - Bipolar disorder, current episode depressed, mild or moderate severity, unspecified Status: Acute Code(s): F31.30 - Bipolar disorder, current episode depressed, mild or moderate severity, unspecified (3) Suicidal ideation: Status: Acute Code(s): R45.851 - Suicidal ideations Plan HPI: Patient is a 49 years old bilingual speaking male with history of unspecified bipolar d/o and PTSD who self presented reported SI with a plan to overdose. Increased anxiety and depression which has impacting his ability to function and attended to ADLs for the past weeks. He was here admitted to [address] in May 31 with the same presentation. Formulation/clinical reasoning: Increased depression, anxiety, and SI with plan overdose on medication the past couple weeks after discharge from the hospital. History of numerous inpatient level of care admission, history of wants suicide attempt when he was [age] years old via overdose on medications. History of bipolar, PTSD. Even the above information, patient will be benefit in restrictive environment for medication judgment, provide therapeutic environment to keep him safe and learn coping skills, and refer patient back to outpatient psychiatry services upon discharge. Hospital course: 07/11/25: He can be a good candidate for ECT treatment, history of ECT treatment about 15 years ago Taper down on Latuda per patient requests. He also agreed to take medication at bedtime instead 1700 to see if actually help with not sleeping during the day. Latuda from 100 mg down to 80 mg scheduled at bedtime, even with food. Add lithium on as a second mood stabilizer: [place] ER 300 at bedtime. History of taking this lower sex drive as side effects, he is aware and wanted to back on. Continue with Depakote extended release a 1000 at bedtime. He used to take 1250 mg. We will confirm and increase if necessary. Level prior to discharge was sub therapeutic. Patient aware to inform his outpatient psychiatrist, but dose not increased. Rexulti 1 mg daily in the morning for mood. Continue with prazosin, Remeron and trazodone. Reports vivid dream from trazodone. Add melatonin 9 mg at bedtime as needed for insomnia. Plan Patient on 15 minute checks for safety. Admitted to [facility]. CV. Work with treatment team to do collateral. He good like to step-down to [facility] upon discharge for aftercare. He opens for ECT treatment. VPA level for 07/12 and labs works. BUN slightly elevated. 07/12: Keeping to self. laying in bed most of shift. Patient reports feeling depressed; pt stated, I don't think my medications are right. I want to think about maybe getting ECT again . denies SI/HI/VH/AH .Continue current tx plan. 07/13/2025: Order lithium level after the weekend. Increase prazosin 4 mg Reason for continued inpatient stay Substantial Risk for: inability to function Time Spent With Patient Time: Total time managing care of this patient today ____ minutes.
[2025-07-13 20:40] VITALS: BP 141/65; PULSE 80; RESP 16; TEMP 36.8; O2SAT 97
[2025-07-14 07:05] VITALS: BP 93/51; PULSE 74; RESP 14; TEMP 36.9; O2SAT 93
[2025-07-14 08:17] VITALS: BP 133/83; PULSE 81
--- NOTE | 2025-07-14 10:25 | P.PNPSI_ITS ---
Subjective Subjective Date of Service: 07/14/25 Reason For Visit: PTSD; Bipolar disorder Interim History: Mood a little bit better but still tired and poor sleep. Intermittent hopelessness and thoughts of . No psychosis. Remains unsure if ECT might be a good option for him. Agreed to increase prazosin tonight Medication Compliance: Yes Side effects from medications: No Attending Groups: Intermittent Review of Systems Acute medical concerns: No Review of Systems Review of Systems unremarkable Mental Status Exam Mental Status Exam Narrative: Patient presents well-groomed. Affect is constricted. Speech is clear and coherent. Thought process is linear and logical. Thought content is appropriate and relevant. Slightly less depressed and anxious. Patient denies suicidal or homicidal ideation intent or plan, but is hopeless at times. No overt psychotic symptoms elicited. Insight is fair. Judgment is poor. No delusional or paranoid statements made. Insight and judgment fair Diagnostics Vital Signs (24Hr): Vital Signs - 24 hr 07/13/25 20:40 07/14/25 07:05 07/14/25 08:17 Temperature 98.2 F 98.4 F Pulse Rate 80 74 81 Respiratory Rate 16 14 Blood Pressure 141/65 H 93/51 L 133/83 Pulse Oximetry 97 93 Oxygen Delivery Method Room Air Room Air BMI result Body Mass Index 32.3 Labs 07/10/25 16:53 07/10/25 16:53 Medications Medications Current Medications Acetaminophen (Acetaminophen 325 Mg Tablet) 650 mg PO Q6H PRN PRN Reason: Headache/Pain, Scale 1-10 Al Hydroxide/Mg Hydroxide (Magnesium Hydrox/Alum Hydrox 30 Ml Oral.Susp) 30 ml PO Q6H PRN PRN Reason: Heartburn/Nausea Brexpiprazole (Brexpiprazole 1 Mg Tablet) 1 mg PO DAILY [facility] Last Admin: 07/14/25 08:43 Dose: 1 mg Divalproex Sodium (Divalproex Sodium 500 Mg Tablet.Dr) 1,000 mg PO BEDTIME [facility] Last Admin: 07/13/25 20:48 Dose: 1,000 mg Hydroxyzine HCl (Hydroxyzine Hcl 50 Mg Tablet) 50 mg PO Q8H PRN PRN Reason: Anxiety Last Admin: 07/13/25 14:54 Dose: 50 mg [place] Carbonate ([place] Carbonate Er 300 Mg Tablet.Er) 300 mg PO BEDTIME [facility] Last Admin: 07/13/25 20:49 Dose: 300 mg Lorazepam (Lorazepam 1 Mg Tablet) 1 mg PO DAILY PRN PRN Reason: Anxiety Last Admin: 07/14/25 08:43 Dose: 1 mg Lurasidone HCl (Lurasidone Hcl 80 Mg Tablet) 80 mg PO BEDTIME [facility] Last Admin: 07/13/25 20:49 Dose: 80 mg Magnesium Hydroxide (Milk Of Magnesia 30 Ml Oral.Susp) 30 ml PO DAILY PRN PRN Reason: Constipation Melatonin (Melatonin 3 Mg Tablet) 9 mg PO BEDTIME PRN PRN Reason: Insomnia Last Admin: 07/11/25 22:34 Dose: 9 mg Mirtazapine (Mirtazapine 30 Mg Tablet) 30 mg PO BEDTIME [facility] Last Admin: 07/13/25 20:49 Dose: 30 mg Naproxen (Naproxen 500 Mg Tablet) 500 mg PO Q12H PRN PRN Reason: Knee and shoulder pain Last Admin: 07/12/25 08:35 Dose: 500 mg Nicotine Polacrilex (Nicotine Polacrilex 2 Mg Gum) 4 mg BUCCAL Q2H PRN PRN Reason: Nicotine Cravings Nystatin (Nystatin Powder 15 Gm Bottle) 1 appl TOPICAL BID [facility]; Protocol Last Admin: 07/14/25 08:44 Dose: 1 appl Prazosin HCl (Prazosin Hcl 1 Mg Capsule) 4 mg PO BEDTIME [facility]; Protocol Last Admin: 07/13/25 20:47 Dose: 4 mg Propranolol HCl (Propranolol Hcl 20 Mg Tablet) 20 mg PO BID PRN; Protocol PRN Reason: Anxiety Last Admin: 07/11/25 18:02 Dose: 20 mg Pseudoephedrine HCl (Pseudoephedrine Hcl 30 Mg Tablet) 30 mg PO Q6H PRN PRN Reason: Congestion Last Admin: 07/12/25 21:19 Dose: 30 mg Trazodone HCl (Trazodone Hcl 100 Mg Tablet) 200 mg PO BEDTIME [facility] Last Admin: 07/13/25 20:48 Dose: 200 mg Trazodone HCl (Trazodone Hcl 50 Mg Tablet) 50 mg PO BEDTIME MRX1 PRN PRN Reason: Insomnia Last Admin: 07/13/25 22:23 Dose: 50 mg Allergies Allergies Allergy/AdvReac Type Severity Reaction Status Date / Time [facility] ([facility]) Allergy Unknown RASH Verified 07/10/25 16:23 shrimp Allergy Anaphylaxis Verified 07/10/25 16:23 Assessment & Plan Assessment & Plan (1) PTSD (post-traumatic stress disorder): Status: Acute Code(s): F43.10 - Post-traumatic stress disorder, unspecified (2) Bipolar disorder, now depressed: Qualifiers: Current episode severity: unspecified Qualified Code(s): F31.30 - Bipolar disorder, current episode depressed, mild or moderate severity, unspecified Status: Acute Code(s): F31.30 - Bipolar disorder, current episode depressed, mild or moderate severity, unspecified (3) Suicidal ideation: Status: Acute Code(s): R45.851 - Suicidal ideations Plan HPI: Patient is a 49 years old bilingual speaking male with history of unspecified bipolar d/o and PTSD who self presented reported SI with a plan to overdose. Increased anxiety and depression which has impacting his ability to function and attended to ADLs for the past weeks. He was here admitted to [address] in May 31 with the same presentation. Formulation/clinical reasoning: Increased depression, anxiety, and SI with plan overdose on medication the past couple weeks after discharge from the hospital. History of numerous inpatient level of care admission, history of wants suicide attempt when he was [age] years old via overdose on medications. History of bipolar, PTSD. Even the above information, patient will be benefit in restrictive environment for medication judgment, provide therapeutic environment to keep him safe and learn coping skills, and refer patient back to outpatient psychiatry services upon discharge. Hospital course: 07/11/25: He can be a good candidate for ECT treatment, history of ECT treatment about 15 years ago Taper down on Latuda per patient requests. He also agreed to take medication at bedtime instead 1700 to see if actually help with not sleeping during the day. Latuda from 100 mg down to 80 mg scheduled at bedtime, even with food. Add lithium on as a second mood stabilizer: [place] ER 300 at bedtime. History of taking this lower sex drive as side effects, he is aware and wanted to back on. Continue with Depakote extended release a 1000 at bedtime. He used to take 1250 mg. We will confirm and increase if necessary. Level prior to discharge was sub therapeutic. Patient aware to inform his outpatient psychiatrist, but dose not increased. Rexulti 1 mg daily in the morning for mood. Continue with prazosin, Remeron and trazodone. Reports vivid dream from trazodone. Add melatonin 9 mg at bedtime as needed for insomnia. Plan Patient on 15 minute checks for safety. Admitted to [facility]. CV. Work with treatment team to do collateral. He good like to step-down to [facility] upon discharge for aftercare. He opens for ECT treatment. VPA level for 07/12 and labs works. BUN slightly elevated. 07/12: Keeping to self. laying in bed most of shift. Patient reports feeling depressed; pt stated, I don't think my medications are right. I want to think about maybe getting ECT again . denies SI/HI/VH/AH .Continue current tx plan. 07/13/2025: Order lithium level after the weekend. Increase prazosin 4 mg 07/14: increase prazosin to 5mg Reason for continued inpatient stay Substantial Risk for: inability to function Time Spent With Patient Time: Total time managing care of this patient today ____ minutes.
[2025-07-14 15:24] VITALS: BP 139/96; PULSE 104
[2025-07-14 19:45] VITALS: BP 132/60; PULSE 70; RESP 16; TEMP 36.5
[2025-07-15 07:34] VITALS: BP 121/57; PULSE 70; RESP 16; TEMP 36.4; O2SAT 95
[2025-07-15 08:43] LABS: Lithium 0.22 mmol/L (0.60-1.20)
--- NOTE | 2025-07-15 09:57 | P.PNPSI_ITS ---
Subjective Subjective Date of Service: 07/15/25 Reason For Visit: PTSD; Bipolar disorder Subjective Notes: Conditional Voluntary Interim History: Patient continues to report feeling depressed; he reports not sleeping well at night, despite nursing reporting he slept 8 hours through the night with PRN medications. Pt declined Latuda yesterday; pt stated, I don't want to keep taking the Latuda ; dose decreased to 60mg PO bedtime. [place] level 0.22 today; [place] dose increased to 600mg PO bedtime. Patient reports he is still thinking about ECT ; awaiting consult from Dr. Ocampo. Patient denies SI/HI/VH/AH. Medication Compliance: Intermittent Side effects from medications: No Attending Groups: Intermittent Mental Status Exam Mental Status Exam Narrative: Pt is alert and oriented; behavior is cooperative and calm, irritable; dressed in casual attire; mood is described as depressed ; eye contact appropriate; Speech is normal rate, volume and not pressured; thought process is organized and goal directed; Thought content is on tx; denies SI/HI/AH/VH. Diagnostics Vital Signs (24Hr): Vital Signs - 24 hr 07/14/25 15:24 07/14/25 19:45 07/15/25 07:34 Temperature 97.7 F 97.5 F Pulse Rate 104 H 70 70 Respiratory Rate 16 16 Blood Pressure 139/96 H 132/60 121/57 L Pulse Oximetry 95 Oxygen Delivery Method Room Air BMI result Body Mass Index 32.3 Labs 07/10/25 16:53 07/10/25 16:53 Labs: Laboratory Results - last 48 hr 07/15/25 08:17 Hold Purple Top SEE NOTE [place] 0.22 L Medications Medications Current Medications Acetaminophen (Acetaminophen 325 Mg Tablet) 650 mg PO Q6H PRN PRN Reason: Headache/Pain, Scale 1-10 Al Hydroxide/Mg Hydroxide (Magnesium Hydrox/Alum Hydrox 30 Ml Oral.Susp) 30 ml PO Q6H PRN PRN Reason: Heartburn/Nausea Brexpiprazole (Brexpiprazole 1 Mg Tablet) 1 mg PO DAILY [facility] Last Admin: 07/15/25 08:27 Dose: 1 mg Divalproex Sodium (Divalproex Sodium 500 Mg Tablet.) 1,000 mg PO BEDTIME [facility] Last Admin: 07/14/25 20:32 Dose: 1,000 mg Hydroxyzine HCl (Hydroxyzine Hcl 50 Mg Tablet) 50 mg PO Q8H PRN PRN Reason: Anxiety Last Admin: 07/13/25 14:54 Dose: 50 mg [place] Carbonate ([place] Carbonate Er 300 Mg Tablet.Er) 300 mg PO BEDTIME [facility] Last Admin: 07/14/25 20:32 Dose: 300 mg Lorazepam (Lorazepam 1 Mg Tablet) 1 mg PO DAILY PRN PRN Reason: Anxiety Last Admin: 07/15/25 08:28 Dose: 1 mg Lurasidone HCl (Lurasidone Hcl 80 Mg Tablet) 80 mg PO BEDTIME [facility] Last Admin: 07/14/25 20:38 Dose: Not Given Magnesium Hydroxide (Milk Of Magnesia 30 Ml Oral.Susp) 30 ml PO DAILY PRN PRN Reason: Constipation Melatonin (Melatonin 3 Mg Tablet) 9 mg PO BEDTIME PRN PRN Reason: Insomnia Last Admin: 07/14/25 22:16 Dose: 9 mg Mirtazapine (Mirtazapine 30 Mg Tablet) 30 mg PO BEDTIME [facility] Last Admin: 07/14/25 20:32 Dose: 30 mg Naproxen (Naproxen 500 Mg Tablet) 500 mg PO Q12H PRN PRN Reason: Knee and shoulder pain Last Admin: 07/12/25 08:35 Dose: 500 mg Nicotine Polacrilex (Nicotine Polacrilex 2 Mg Gum) 4 mg BUCCAL Q2H PRN PRN Reason: Nicotine Cravings Nystatin (Nystatin Powder 15 Gm Bottle) 1 appl TOPICAL BID [facility]; Protocol Last Admin: 07/15/25 09:38 Dose: Not Given Prazosin HCl (Prazosin Hcl 5 Mg Capsule) 5 mg PO BEDTIME [facility]; Protocol Last Admin: 07/14/25 20:32 Dose: 5 mg Propranolol HCl (Propranolol Hcl 20 Mg Tablet) 20 mg PO BID PRN; Protocol PRN Reason: Anxiety Last Admin: 07/14/25 15:24 Dose: 20 mg Pseudoephedrine HCl (Pseudoephedrine Hcl 30 Mg Tablet) 30 mg PO Q6H PRN PRN Reason: Congestion Last Admin: 07/12/25 21:19 Dose: 30 mg Trazodone HCl (Trazodone Hcl 100 Mg Tablet) 200 mg PO BEDTIME [facility] Last Admin: 07/14/25 20:32 Dose: 200 mg Trazodone HCl (Trazodone Hcl 50 Mg Tablet) 50 mg PO BEDTIME MRX1 PRN PRN Reason: Insomnia Last Admin: 07/14/25 20:32 Dose: 50 mg Allergies Allergies Allergy/AdvReac Type Severity Reaction Status Date / Time duloxetine (From [facility]) Allergy Unknown RASH Verified 07/10/25 16:23 shrimp Allergy Anaphylaxis Verified 07/10/25 16:23 Assessment & Plan Assessment & Plan (1) PTSD (post-traumatic stress disorder): Status: Acute Code(s): F43.10 - Post-traumatic stress disorder, unspecified (2) Bipolar disorder, now depressed: Qualifiers: Current episode severity: unspecified Qualified Code(s): F31.30 - Bipolar disorder, current episode depressed, mild or moderate severity, unspecified Status: Acute Code(s): F31.30 - Bipolar disorder, current episode depressed, mild or moderate severity, unspecified (3) Suicidal ideation: Status: Acute Code(s): R45.851 - Suicidal ideations Plan Patient is a 49 years old bilingual speaking male with history of unspecified bipolar d/o and PTSD who self presented reported SI with a plan to overdose. Increased anxiety and depression which has impacting his ability to function and attended to ADLs for the past weeks. He was here admitted to [address] in May 31 with the same presentation. Formulation/clinical reasoning: Increased depression, anxiety, and SI with plan overdose on medication the past couple weeks after discharge from the hospital. History of numerous inpatient level of care admission, history of wants suicide attempt when he was [age] years old via overdose on medications. History of bipolar, PTSD. Even the above information, patient will be benefit in restrictive environment for medication judgment, provide therapeutic environment to keep him safe and learn coping skills, and refer patient back to outpatient psychiatry services upon discharge. Hospital course: 07/11/25: He can be a good candidate for ECT treatment, history of ECT treatment about 15 years ago Taper down on Latuda per patient requests. He also agreed to take medication at bedtime instead 1700 to see if actually help with not sleeping during the day. Latuda from 100 mg down to 80 mg scheduled at bedtime, even with food. Add lithium on as a second mood stabilizer: [place] ER 300 at bedtime. History of taking this lower sex drive as side effects, he is aware and wanted to back on. Continue with Depakote extended release a 1000 at bedtime. He used to take 1250 mg. We will confirm and increase if necessary. Level prior to discharge was sub therapeutic. Patient aware to inform his outpatient psychiatrist, but dose not increased. Rexulti 1 mg daily in the morning for mood. Continue with prazosin, Remeron and trazodone. Reports vivid dream from trazodone. Add melatonin 9 mg at bedtime as needed for insomnia. Plan: Patient on 15 minute checks for safety. Admitted to [facility]. CV. Work with treatment team to do collateral. He good like to step-down to [facility] upon discharge for aftercare. He opens for ECT treatment. VPA level for 07/12 and labs works. BUN slightly elevated. 07/12: Keeping to self. laying in bed most of shift. Patient reports feeling depressed; pt stated, I don't think my medications are right. I want to think about maybe getting ECT again . denies SI/HI/VH/AH .Continue current tx plan. 07/13/2025: Order lithium level after the weekend. Increase prazosin 4 mg 07/14: increase prazosin to 5mg 07/15: Patient continues to report feeling depressed; he reports not sleeping well at night, despite nursing reporting he slept 8 hours through the night with PRN medications. Pt declined Latuda yesterday; pt stated, I don't want to keep taking the Latuda ; dose decreased to 60mg PO bedtime. [place] level 0.22 today; [place] dose increased to 600mg PO bedtime. Patient reports he is still thinking about ECT ; awaiting consult from Dr. Ocampo. Patient denies SI/HI/VH/AH. Patient educated on: diagnosis and medication risk/benefits Reason for continued inpatient stay Substantial Risk for: med/psych decompensation Time Spent With Patient Time: Total time managing care of this patient today _20___ minutes.
[2025-07-15 14:59] VITALS: BP 144/99; PULSE 101
[2025-07-15 16:25] VITALS: BP 130/93; PULSE 77
[2025-07-15 21:00] VITALS: BP 144/80; PULSE 69; RESP 16; TEMP 36.4; O2SAT 97
[2025-07-15 21:01] VITALS: BP 144/80
[2025-07-16 07:26] VITALS: BP 126/69; PULSE 75; RESP 20; TEMP 37.2; O2SAT 97
--- NOTE | 2025-07-16 09:28 | P.PNPSI_ITS ---
Subjective Subjective Date of Service: 07/16/25 Reason For Visit: PTSD; Bipolar disorder Subjective Notes: Conditional Voluntary Interim History: Patient continues to report feeling depressed; continues to report not sleeping well d/t nightmares. Discussed increasing Prazosin, which pt is agreeable. He reports high levels of anxiety d/t ruminating on medications. per nursing, slept 8 hours last night. Prazosin increased to 6mg PO bedtime. Rexulti increased to 2mg PO daily. denies SI/HI/VH/AH. Medication Compliance: Yes Side effects from medications: No Attending Groups: Intermittent Mental Status Exam Mental Status Exam Narrative: Pt is alert and oriented; behavior is cooperative and calm; dressed in casual attire; mood is described as depressed ; eye contact appropriate; Speech is normal rate, volume and not pressured; thought process is organized and goal directed; Thought content is on tx; denies SI/HI/AH/VH. Diagnostics Vital Signs (24Hr): Vital Signs - 24 hr 07/15/25 14:59 07/15/25 16:25 07/15/25 21:00 Temperature 97.5 F Pulse Rate 101 H 77 69 Respiratory Rate 16 Blood Pressure 144/99 H 130/93 H 144/80 H Pulse Oximetry 97 Oxygen Delivery Method Room Air 07/15/25 21:01 07/16/25 07:26 Temperature 98.9 F Pulse Rate 75 Respiratory Rate 20 Blood Pressure 144/80 H 126/69 Pulse Oximetry 97 Oxygen Delivery Method Room Air BMI result Body Mass Index 32.3 Labs 07/10/25 16:53 07/10/25 16:53 Labs: Laboratory Results - last 48 hr 07/15/25 08:17 Hold Purple Top SEE NOTE [place] 0.22 L Medications Medications Current Medications Acetaminophen (Acetaminophen 325 Mg Tablet) 650 mg PO Q6H PRN PRN Reason: Headache/Pain, Scale 1-10 Al Hydroxide/Mg Hydroxide (Magnesium Hydrox/Alum Hydrox 30 Ml Oral.Susp) 30 ml PO Q6H PRN PRN Reason: Heartburn/Nausea Brexpiprazole (Brexpiprazole 1 Mg Tablet) 1 mg PO DAILY [facility] Last Admin: 07/16/25 08:32 Dose: 1 mg Divalproex Sodium (Divalproex Sodium 500 Mg Tablet.) 1,000 mg PO BEDTIME [facility] Last Admin: 07/15/25 21:00 Dose: 1,000 mg Hydroxyzine HCl (Hydroxyzine Hcl 50 Mg Tablet) 50 mg PO Q8H PRN PRN Reason: Anxiety Last Admin: 07/15/25 11:15 Dose: 50 mg [place] Carbonate ([place] Carbonate Er 300 Mg Tablet.Er) 600 mg PO BEDTIME [facility] Last Admin: 07/15/25 21:01 Dose: 600 mg Lorazepam (Lorazepam 1 Mg Tablet) 1 mg PO DAILY PRN PRN Reason: Anxiety Last Admin: 07/16/25 08:32 Dose: 1 mg Lurasidone HCl (Lurasidone Hcl 20 Mg Tablet) 60 mg PO BEDTIME [facility] Last Admin: 07/15/25 21:00 Dose: 60 mg Magnesium Hydroxide (Milk Of Magnesia 30 Ml Oral.Susp) 30 ml PO DAILY PRN PRN Reason: Constipation Melatonin (Melatonin 3 Mg Tablet) 9 mg PO BEDTIME PRN PRN Reason: Insomnia Last Admin: 07/14/25 22:16 Dose: 9 mg Mirtazapine (Mirtazapine 30 Mg Tablet) 30 mg PO BEDTIME [facility] Last Admin: 07/15/25 21:01 Dose: 30 mg Naproxen (Naproxen 500 Mg Tablet) 500 mg PO Q12H PRN PRN Reason: Knee and shoulder pain Last Admin: 07/15/25 17:54 Dose: 500 mg Nicotine Polacrilex (Nicotine Polacrilex 2 Mg Gum) 4 mg BUCCAL Q2H PRN PRN Reason: Nicotine Cravings Nystatin (Nystatin Powder 15 Gm Bottle) 1 appl TOPICAL BID [facility]; Protocol Last Admin: 07/16/25 08:32 Dose: Not Given Prazosin HCl (Prazosin Hcl 5 Mg Capsule) 5 mg PO BEDTIME [facility]; Protocol Last Admin: 07/15/25 21:01 Dose: 5 mg Propranolol HCl (Propranolol Hcl 20 Mg Tablet) 20 mg PO BID PRN; Protocol PRN Reason: Anxiety Last Admin: 07/15/25 14:59 Dose: 20 mg Pseudoephedrine HCl (Pseudoephedrine Hcl 30 Mg Tablet) 30 mg PO Q6H PRN PRN Reason: Congestion Last Admin: 07/12/25 21:19 Dose: 30 mg Trazodone HCl (Trazodone Hcl 100 Mg Tablet) 200 mg PO BEDTIME [facility] Last Admin: 07/15/25 21:01 Dose: 200 mg Trazodone HCl (Trazodone Hcl 50 Mg Tablet) 50 mg PO BEDTIME MRX1 PRN PRN Reason: Insomnia Last Admin: 07/15/25 23:00 Dose: 50 mg Allergies Allergies Allergy/AdvReac Type Severity Reaction Status Date / Time duloxetine (From CYMBALTA) Allergy Unknown RASH Verified 07/10/25 16:23 shrimp Allergy Anaphylaxis Verified 07/10/25 16:23 Assessment & Plan Assessment & Plan (1) PTSD (post-traumatic stress disorder): Status: Acute Code(s): F43.10 - Post-traumatic stress disorder, unspecified (2) Bipolar disorder, now depressed: Qualifiers: Current episode severity: unspecified Qualified Code(s): F31.30 - Bipolar disorder, current episode depressed, mild or moderate severity, unspecified Status: Acute Code(s): F31.30 - Bipolar disorder, current episode depressed, mild or moderate severity, unspecified (3) Suicidal ideation: Status: Acute Code(s): R45.851 - Suicidal ideations Plan Patient is a 49 years old bilingual speaking male with history of unspecified bipolar d/o and PTSD who self presented reported SI with a plan to overdose. Increased anxiety and depression which has impacting his ability to function and attended to ADLs for the past weeks. He was here admitted to [address] in May 31 with the same presentation. Formulation/clinical reasoning: Increased depression, anxiety, and SI with plan overdose on medication the past couple weeks after discharge from the hospital. History of numerous inpatient level of care admission, history of wants suicide attempt when he was [age] years old via overdose on medications. History of bipolar, PTSD. Even the above information, patient will be benefit in restrictive environment for medication judgment, provide therapeutic environment to keep him safe and learn coping skills, and refer patient back to outpatient psychiatry services upon discharge. Hospital course: 07/11/25: He can be a good candidate for ECT treatment, history of ECT treatment about 15 years ago Taper down on Latuda per patient requests. He also agreed to take medication at bedtime instead 1700 to see if actually help with not sleeping during the day. Latuda from 100 mg down to 80 mg scheduled at bedtime, even with food. Add lithium on as a second mood stabilizer: [place] ER 300 at bedtime. History of taking this lower sex drive as side effects, he is aware and wanted to back on. Continue with Depakote extended release a 1000 at bedtime. He used to take 1250 mg. We will confirm and increase if necessary. Level prior to discharge was sub therapeutic. Patient aware to inform his outpatient psychiatrist, but dose not increased. Rexulti 1 mg daily in the morning for mood. Continue with prazosin, Remeron and trazodone. Reports vivid dream from trazodone. Add melatonin 9 mg at bedtime as needed for insomnia. Plan: Patient on 15 minute checks for safety. Admitted to [facility]. CV. Work with treatment team to do collateral. He good like to step-down to [facility] upon discharge for aftercare. He opens for ECT treatment. VPA level for 07/12 and labs works. BUN slightly elevated. 07/12: Keeping to self. laying in bed most of shift. Patient reports feeling depressed; pt stated, I don't think my medications are right. I want to think about maybe getting ECT again . denies SI/HI/VH/AH .Continue current tx plan. 07/13/2025: Order lithium level after the weekend. Increase prazosin 4 mg 07/14: increase prazosin to 5mg 07/15: Patient continues to report feeling depressed; he reports not sleeping well at night, despite nursing reporting he slept 8 hours through the night with PRN medications. Pt declined Latuda yesterday; pt stated, I don't want to keep taking the Latuda ; dose decreased to 60mg PO bedtime. [place] level 0.22 today; [place] dose increased to 600mg PO bedtime. Patient reports he is still thinking about ECT ; awaiting consult from Dr. Ocampo. Patient denies SI/HI/VH/AH. 07/16: Patient continues to report feeling depressed; continues to report not sleeping well d/t nightmares. Discussed increasing Prazosin, which pt is agreeable. He reports high levels of anxiety d/t ruminating on medications. per nursing, slept 8 hours last night. Prazosin increased to 6mg PO bedtime. Rexulti increased to 2mg PO daily. denies SI/HI/VH/AH. Patient educated on: diagnosis, medication risk/benefits and therapeutic strategies Reason for continued inpatient stay Substantial Risk for: med/psych decompensation Time Spent With Patient Time: Total time managing care of this patient today _20___ minutes.
[2025-07-16 14:06] VITALS: BP 146/89; PULSE 81
[2025-07-16 20:44] VITALS: BP 147/66; PULSE 81; RESP 16; TEMP 36.8; O2SAT 98
[2025-07-16] MEDS: Prazosin HCL 5 MG, Prazosin HCL 1 MG 6 MG PO (20:49)
[2025-07-16 23:03] VITALS: BP 143/82; PULSE 77
[2025-07-17 07:47] VITALS: BP 123/73; PULSE 61; RESP 14; TEMP 36.3; O2SAT 95
--- NOTE | 2025-07-17 08:53 | HO.PSYCHPN ---
Subjective Subjective Date of Service: 07/17/25 Reason For Visit: PTSD; Bipolar disorder Subjective Notes: Conditional Voluntary Interim History: Laying in bed. Encouraged to attend groups. Patient continues to report feeling depressed; continues to report not sleeping well despite nursing reporting pt slept 7 hours last night. Continues ruminating on medications. denies SI/HI/VH/AH. Continue current tx plan. Medication Compliance: Yes Side effects from medications: No Attending Groups: No Mental Status Exam Mental Status Exam Narrative: Pt is alert and oriented; behavior is cooperative and calm; dressed in casual attire; mood is described as depressed ; eye contact appropriate; Speech is normal rate, volume and not pressured; thought process is organized; Thought content is on tx; denies SI/HI/AH/VH. Diagnostics Vital Signs (24Hr): Vital Signs - 24 hr 07/16/25 14:06 07/16/25 20:44 07/16/25 23:03 Temperature 98.3 F Pulse Rate 81 81 77 Respiratory Rate 16 Blood Pressure 146/89 H 147/66 H 143/82 H Pulse Oximetry 98 Oxygen Delivery Method Room Air 07/17/25 07:47 Temperature 97.4 F Pulse Rate 61 Respiratory Rate 14 Blood Pressure 123/73 Pulse Oximetry 95 Oxygen Delivery Method Room Air BMI result Body Mass Index 32.3 Labs 07/10/25 16:53 07/10/25 16:53 Medications Medications Current Medications Acetaminophen (Acetaminophen 325 Mg Tablet) 650 mg PO Q6H PRN PRN Reason: Headache/Pain, Scale 1-10 Al Hydroxide/Mg Hydroxide (Magnesium Hydrox/Alum Hydrox 30 Ml Oral.Susp) 30 ml PO Q6H PRN PRN Reason: Heartburn/Nausea Brexpiprazole (Brexpiprazole 2 Mg Tablet) 2 mg PO DAILY [facility] Last Admin: 07/17/25 08:44 Dose: 2 mg Divalproex Sodium (Divalproex Sodium 500 Mg Tablet.Dr) 1,000 mg PO BEDTIME [facility] Last Admin: 07/16/25 20:49 Dose: 1,000 mg Hydroxyzine HCl (Hydroxyzine Hcl 50 Mg Tablet) 50 mg PO Q8H PRN PRN Reason: Anxiety Last Admin: 07/16/25 14:06 Dose: 50 mg [place] Carbonate ([place] Carbonate Er 300 Mg Tablet.Er) 600 mg PO BEDTIME [facility] Last Admin: 08/26/25 20:50 Dose: 600 mg Lorazepam (Lorazepam 1 Mg Tablet) 1 mg PO DAILY PRN PRN Reason: Anxiety Last Admin: 07/16/25 08:32 Dose: 1 mg Lurasidone HCl (Lurasidone Hcl 20 Mg Tablet) 60 mg PO BEDTIME [facility] Last Admin: 07/16/25 20:49 Dose: 60 mg Magnesium Hydroxide (Milk Of Magnesia 30 Ml Oral.Susp) 30 ml PO DAILY PRN PRN Reason: Constipation Melatonin (Melatonin 3 Mg Tablet) 9 mg PO BEDTIME PRN PRN Reason: Insomnia Last Admin: 07/14/25 22:16 Dose: 9 mg Mirtazapine (Mirtazapine 30 Mg Tablet) 30 mg PO BEDTIME [facility] Last Admin: 07/16/25 20:49 Dose: 30 mg Naproxen (Naproxen 500 Mg Tablet) 500 mg PO Q12H PRN PRN Reason: Knee and shoulder pain Last Admin: 07/15/25 17:54 Dose: 500 mg Nicotine Polacrilex (Nicotine Polacrilex 2 Mg Gum) 4 mg BUCCAL Q2H PRN PRN Reason: Nicotine Cravings Nystatin (Nystatin Powder 15 Gm Bottle) 1 appl TOPICAL BID [facility]; Protocol Last Admin: 07/17/25 08:46 Dose: Not Given Prazosin HCl 5 mg/ Prazosin (HCl 1 mg) 6 mg PO BEDTIME [facility] Last Admin: 07/16/25 20:49 Dose: 6 mg Propranolol HCl (Propranolol Hcl 20 Mg Tablet) 20 mg PO BID PRN; Protocol PRN Reason: Anxiety Last Admin: 07/16/25 23:04 Dose: 20 mg Pseudoephedrine HCl (Pseudoephedrine Hcl 30 Mg Tablet) 30 mg PO Q6H PRN PRN Reason: Congestion Last Admin: 07/12/25 21:19 Dose: 30 mg Trazodone HCl (Trazodone Hcl 100 Mg Tablet) 200 mg PO BEDTIME [facility] Last Admin: 07/16/25 20:49 Dose: 200 mg Trazodone HCl (Trazodone Hcl 50 Mg Tablet) 50 mg PO BEDTIME MRX1 PRN PRN Reason: Insomnia Last Admin: 07/16/25 23:04 Dose: 50 mg Allergies Allergies Allergy/AdvReac Type Severity Reaction Status Date / Time duloxetine (From CYMBALTA) Allergy Unknown RASH Verified 07/10/25 16:23 shrimp Allergy Anaphylaxis Verified 07/10/25 16:23 Assessment & Plan Assessment & Plan (1) PTSD (post-traumatic stress disorder): Status: Acute Code(s): F43.10 - Post-traumatic stress disorder, unspecified (2) Bipolar disorder, now depressed: Qualifiers: Current episode severity: unspecified Qualified Code(s): F31.30 - Bipolar disorder, current episode depressed, mild or moderate severity, unspecified Status: Acute Code(s): F31.30 - Bipolar disorder, current episode depressed, mild or moderate severity, unspecified (3) Suicidal ideation: Status: Acute Code(s): R45.851 - Suicidal ideations Plan Patient is a 49 years old bilingual speaking male with history of unspecified bipolar d/o and PTSD who self presented reported SI with a plan to overdose. Increased anxiety and depression which has impacting his ability to function and attended to ADLs for the past weeks. He was here admitted to [address] in May 31 with the same presentation. Formulation/clinical reasoning: Increased depression, anxiety, and SI with plan overdose on medication the past couple weeks after discharge from the hospital. History of numerous inpatient level of care admission, history of wants suicide attempt when he was [age] years old via overdose on medications. History of bipolar, PTSD. Even the above information, patient will be benefit in restrictive environment for medication judgment, provide therapeutic environment to keep him safe and learn coping skills, and refer patient back to outpatient psychiatry services upon discharge. Hospital course: 07/11/25: He can be a good candidate for ECT treatment, history of ECT treatment about 15 years ago Taper down on Latuda per patient requests. He also agreed to take medication at bedtime instead 1700 to see if actually help with not sleeping during the day. Latuda from 100 mg down to 80 mg scheduled at bedtime, even with food. Add lithium on as a second mood stabilizer: [place] ER 300 at bedtime. History of taking this lower sex drive as side effects, he is aware and wanted to back on. Continue with Depakote extended release a 1000 at bedtime. He used to take 1250 mg. We will confirm and increase if necessary. Level prior to discharge was sub therapeutic. Patient aware to inform his outpatient psychiatrist, but dose not increased. Rexulti 1 mg daily in the morning for mood. Continue with prazosin, Remeron and trazodone. Reports vivid dream from trazodone. Add melatonin 9 mg at bedtime as needed for insomnia. Plan: Patient on 15 minute checks for safety. Admitted to [facility]. CV. Work with treatment team to do collateral. He good like to step-down to [facility] upon discharge for aftercare. He opens for ECT treatment. VPA level for 07/12 and labs works. BUN slightly elevated. 07/12: Keeping to self. laying in bed most of shift. Patient reports feeling depressed; pt stated, I don't think my medications are right. I want to think about maybe getting ECT again . denies SI/HI/VH/AH .Continue current tx plan. 07/13/2025: Order lithium level after the weekend. Increase prazosin 4 mg 07/14: increase prazosin to 5mg 07/15: Patient continues to report feeling depressed; he reports not sleeping well at night, despite nursing reporting he slept 8 hours through the night with PRN medications. Pt declined Latuda yesterday; pt stated, I don't want to keep taking the Latuda ; dose decreased to 60mg PO bedtime. [place] level 0.22 today; [place] dose increased to 600mg PO bedtime. Patient reports he is still thinking about ECT ; awaiting consult from Dr. Ocampo. Patient denies SI/HI/VH/AH. 07/16: Patient continues to report feeling depressed; continues to report not sleeping well d/t nightmares. Discussed increasing Prazosin, which pt is agreeable. He reports high levels of anxiety d/t ruminating on medications. per nursing, slept 8 hours last night. Prazosin increased to 6mg PO bedtime. Rexulti increased to 2mg PO daily. denies SI/HI/VH/AH. 07/17: Laying in bed. Encouraged to attend groups. Patient continues to report feeling depressed; continues to report not sleeping well despite nursing reporting pt slept 7 hours last night. Continues ruminating on medications. denies SI/HI/VH/AH. Continue current tx plan. Patient educated on: diagnosis, medication risk/benefits and therapeutic strategies Reason for continued inpatient stay Substantial Risk for: med/psych decompensation Time Spent With Patient Time: Total time managing care of this patient today _20___ minutes.
[2025-07-17 17:11] VITALS: BP 159/99; PULSE 91
[2025-07-17 18:29] VITALS: BP 135/74; PULSE 80
[2025-07-17 20:00] VITALS: BP 133/73; PULSE 79; RESP 16; TEMP 36.4; O2SAT 97
[2025-07-17] MEDS: Prazosin HCL 5 MG, Prazosin HCL 1 MG 6 MG PO (20:54)
[2025-07-18 07:38] VITALS: BP 113/72; PULSE 63; RESP 20; TEMP 36.9; O2SAT 99
--- NOTE | 2025-07-18 14:59 | HO.PSYCHPN ---
Subjective Subjective Date of Service: 07/18/25 Reason For Visit: PTSD; Bipolar disorder Subjective Notes: Conditional Voluntary Interim History: Isolating to room. Patient continues to report feeling depressed; pt stated, I still feel the same. I'm still depressed. I don't do well with being patient until the medications work . Slept 8 hours last night, pt reports he did not have nightmares. Continues ruminating on medications. denies SI/HI/VH/AH. Continue current tx plan. Medication Compliance: Yes Side effects from medications: No Attending Groups: No Mental Status Exam Mental Status Exam Narrative: Pt is alert and oriented; behavior is cooperative and calm; dressed in casual attire; mood is described as depressed ; eye contact appropriate; Speech is normal rate, volume and not pressured; thought process is organized; Thought content is on tx; denies SI/HI/AH/VH. Diagnostics Vital Signs (24Hr): Vital Signs - 24 hr 07/17/25 17:11 07/17/25 18:29 07/17/25 20:00 Temperature 97.5 F Pulse Rate 91 80 79 Respiratory Rate 16 Blood Pressure 159/99 H 135/74 133/73 Pulse Oximetry 97 Oxygen Delivery Method Room Air 07/18/25 07:38 Temperature 98.4 F Pulse Rate 63 Respiratory Rate 20 Blood Pressure 113/72 Pulse Oximetry 99 Oxygen Delivery Method Room Air BMI result Body Mass Index 32.3 Labs 07/10/25 16:53 07/10/25 16:53 Medications Medications Current Medications Acetaminophen (Acetaminophen 325 Mg Tablet) 650 mg PO Q6H PRN PRN Reason: Headache/Pain, Scale 1-10 Al Hydroxide/Mg Hydroxide (Magnesium Hydrox/Alum Hydrox 30 Ml Oral.Susp) 30 ml PO Q6H PRN PRN Reason: Heartburn/Nausea Brexpiprazole (Brexpiprazole 2 Mg Tablet) 2 mg PO DAILY YOBANI Last Admin: 07/18/25 08:12 Dose: 2 mg Divalproex Sodium (Divalproex Sodium 500 Mg Tablet.Dr) 1,000 mg PO BEDTIME YOBANI Last Admin: 07/17/25 20:54 Dose: 1,000 mg Hydroxyzine HCl (Hydroxyzine Hcl 50 Mg Tablet) 50 mg PO Q8H PRN PRN Reason: Anxiety Last Admin: 07/18/25 12:23 Dose: 50 mg [place] Carbonate ([place] Carbonate Er 300 Mg Tablet.Er) 600 mg PO BEDTIME YOBANI Last Admin: 07/17/25 20:55 Dose: 600 mg Lorazepam (Lorazepam 1 Mg Tablet) 1 mg PO DAILY PRN PRN Reason: Anxiety Last Admin: 07/18/25 08:38 Dose: 1 mg Lurasidone HCl (Lurasidone Hcl 20 Mg Tablet) 60 mg PO BEDTIME YOBANI Last Admin: 07/17/25 20:54 Dose: 60 mg Magnesium Hydroxide (Milk Of Magnesia 30 Ml Oral.Susp) 30 ml PO DAILY PRN PRN Reason: Constipation Melatonin (Melatonin 3 Mg Tablet) 9 mg PO BEDTIME PRN PRN Reason: Insomnia Last Admin: 07/17/25 20:59 Dose: 9 mg Mirtazapine (Mirtazapine 30 Mg Tablet) 30 mg PO BEDTIME YOBANI Last Admin: 07/17/25 21:06 Dose: 30 mg Naproxen (Naproxen 500 Mg Tablet) 500 mg PO Q12H PRN PRN Reason: Knee and shoulder pain Last Admin: 07/15/25 17:54 Dose: 500 mg Nicotine Polacrilex (Nicotine Polacrilex 2 Mg Gum) 4 mg BUCCAL Q2H PRN PRN Reason: Nicotine Cravings Nystatin (Nystatin Powder 15 Gm Bottle) 1 appl TOPICAL BID YOBANI; Protocol Last Admin: 07/18/25 08:12 Dose: Not Given Prazosin HCl 5 mg/ Prazosin (HCl 1 mg) 6 mg PO BEDTIME YOBANI Last Admin: 07/17/25 20:54 Dose: 6 mg Propranolol HCl (Propranolol Hcl 20 Mg Tablet) 20 mg PO BID PRN; Protocol PRN Reason: Anxiety Last Admin: 07/17/25 17:14 Dose: 20 mg Pseudoephedrine HCl (Pseudoephedrine Hcl 30 Mg Tablet) 30 mg PO Q6H PRN PRN Reason: Congestion Last Admin: 07/12/25 21:19 Dose: 30 mg Trazodone HCl (Trazodone Hcl 100 Mg Tablet) 200 mg PO BEDTIME YOBANI Last Admin: 07/17/25 20:54 Dose: 200 mg Trazodone HCl (Trazodone Hcl 50 Mg Tablet) 50 mg PO BEDTIME MRX1 PRN PRN Reason: Insomnia Last Admin: 07/17/25 21:56 Dose: 50 mg Allergies Allergies Allergy/AdvReac Type Severity Reaction Status Date / Time duloxetine (From CYALTA) Allergy Unknown RASH Verified 07/10/25 16:23 shrimp Allergy Anaphylaxis Verified 07/10/25 16:23 Assessment & Plan Assessment & Plan (1) Bipolar disorder, now depressed: Qualifiers: Current episode severity: unspecified Qualified Code(s): F31.30 - Bipolar disorder, current episode depressed, mild or moderate severity, unspecified Status: Acute Code(s): F31.30 - Bipolar disorder, current episode depressed, mild or moderate severity, unspecified (2) PTSD (post-traumatic stress disorder): Status: Acute Code(s): F43.10 - Post-traumatic stress disorder, unspecified Plan Patient is a 49 years old bilingual speaking male with history of unspecified bipolar d/o and PTSD who self presented reported SI with a plan to overdose. Increased anxiety and depression which has impacting his ability to function and attended to ADLs for the past weeks. He was here admitted to back in May 31 with the same presentation. Formulation/clinical reasoning: Increased depression, anxiety, and SI with plan overdose on medication the past couple weeks after discharge from the hospital. History of numerous inpatient level of care admission, history of wants suicide attempt when he was [age] years old via overdose on medications. History of bipolar, PTSD. Even the above information, patient will be benefit in restrictive environment for medication judgment, provide therapeutic environment to keep him safe and learn coping skills, and refer patient back to outpatient psychiatry services upon discharge. Plan: Patient on 15 minute checks for safety. Admitted to . CV. Work with treatment team to do collateral. He good like to step-down to [facility] upon discharge for aftercare. He opens for ECT treatment. VPA level for 07/12 and labs works. BUN slightly elevated. 07/11/25: He can be a good candidate for ECT treatment, history of ECT treatment about 15 years ago Taper down on Latuda per patient requests. He also agreed to take medication at bedtime instead 1700 to see if actually help with not sleeping during the day. Latuda from 100 mg down to 80 mg scheduled at bedtime, even with food. Add lithium on as a second mood stabilizer: [place] ER 300 at bedtime. History of taking this lower sex drive as side effects, he is aware and wanted to back on. Continue with Depakote extended release a 1000 at bedtime. He used to take 1250 mg. We will confirm and increase if necessary. Level prior to discharge was sub therapeutic. Patient aware to inform his outpatient psychiatrist, but dose not increased. Rexulti 1 mg daily in the morning for mood. Continue with prazosin, Remeron and trazodone. Reports vivid dream from trazodone. Add melatonin 9 mg at bedtime as needed for insomnia. 07/12: Keeping to self. laying in bed most of shift. Patient reports feeling depressed; pt stated, I don't think my medications are right. I want to think about maybe getting ECT again . denies SI/HI/VH/AH .Continue current tx plan. 07/13/2025: Order lithium level after the weekend. Increase prazosin 4 mg 07/14: increase prazosin to 5mg 07/15: Patient continues to report feeling depressed; he reports not sleeping well at night, despite nursing reporting he slept 8 hours through the night with PRN medications. Pt declined Latuda yesterday; pt stated, I don't want to keep taking the Latuda ; dose decreased to 60mg PO bedtime. [place] level 0.22 today; [place] dose increased to 600mg PO bedtime. Patient reports he is still thinking about ECT ; awaiting consult from Dr. Ocampo. Patient denies SI/HI/VH/AH. 07/16: Patient continues to report feeling depressed; continues to report not sleeping well d/t nightmares. Discussed increasing Prazosin, which pt is agreeable. He reports high levels of anxiety d/t ruminating on medications. per nursing, slept 8 hours last night. Prazosin increased to 6mg PO bedtime. Rexulti increased to 2mg PO daily. denies SI/HI/VH/AH. 07/17: Laying in bed. Encouraged to attend groups. Patient continues to report feeling depressed; continues to report not sleeping well despite nursing reporting pt slept 7 hours last night. Continues ruminating on medications. denies SI/HI/VH/AH. Continue current tx plan. 07/18: Isolating to room. Patient continues to report feeling depressed; pt stated, I still feel the same. I'm still depressed. I don't do well with being patient until the medications work . Slept 8 hours last night, pt reports he did not have nightmares. Continues ruminating on medications. denies SI/HI/VH/AH. Continue current tx plan. Patient educated on: diagnosis, medication risk/benefits and therapeutic strategies Reason for continued inpatient stay Substantial Risk for: med/psych decompensation Time Spent With Patient Time: Total time managing care of this patient today _20___ minutes.
[2025-07-18 15:01] VITALS: BP 140/90; PULSE 81
[2025-07-18 16:00] LABS: Lithium 0.28 mmol/L (0.60-1.20)
[2025-07-18 16:06] LABS: Alanine Aminotransferase 40 U/L (0-40); Albumin Level 4.2 g/dL (3.5-5.0); Alkaline Phosphatase 71 U/L (39-117); Anion Gap 11 (12-20); Aspartate Amino Transferase 30 U/L (5-37); Blood Urea Nitrogen 20 mg/dL (9-16); Carbon Dioxide 25 mmol/L (22-29); Chloride 104 mmol/L (96-108); Creatinine Clr Calc Pharmacy 98.8; Estimated Glomerular Filt Rate > 60; Potassium 4.3 mmol/L (3.3-5.1); Sodium 136 mmol/L (135-145); Total Protein 7.4 g/dL (6.5-8.0)
[2025-07-18 16:23] LABS: Ammonia 74 umol/L (13-55)
[2025-07-18 20:00] VITALS: BP 132/75; PULSE 64; RESP 16; TEMP 36.6; O2SAT 97
[2025-07-18] MEDS: Prazosin HCL 5 MG, Prazosin HCL 1 MG 6 MG PO (20:23)
[2025-07-19 07:15] VITALS: BP 123/69; PULSE 61; RESP 14; TEMP 36.6; O2SAT 94
--- NOTE | 2025-07-19 08:48 | P.PNPSI_ITS ---
Subjective Subjective Date of Service: 07/19/25 Reason For Visit: PTSD; Bipolar disorder Subjective Notes: Conditional Voluntary Interim History: Patient continues to report feeling depressed; pt stated, I'm still depressed. I'm depressed about my living situation, my daughter not talking to me for 2 years and my medications . Not attending groups. Continues ruminating on medications. denies SI/HI/VH/AH. Remeron increased to 45mg PO bedtime. [place] ER increased to 900mg PO bedtime. Ammonia level 74 on 07/18/25; ordered Lactulose 40gm PO daily. Patient aware of medication changes. Medication Compliance: Yes Side effects from medications: No Attending Groups: No Mental Status Exam Mental Status Exam Narrative: Pt is alert and oriented; behavior is cooperative and calm; dressed in casual attire; mood is described as depressed ; eye contact appropriate; Speech is normal rate, volume and not pressured; thought process is organized; Thought content is on tx; denies SI/HI/AH/VH. Diagnostics Vital Signs (24Hr): Vital Signs - 24 hr 07/18/25 15:01 07/18/25 20:00 07/19/25 07:15 Temperature 97.8 F 97.9 F Pulse Rate 81 64 61 Respiratory Rate 16 14 Blood Pressure 140/90 H 132/75 123/69 Pulse Oximetry 97 94 Oxygen Delivery Method Room Air Room Air BMI result Body Mass Index 32.3 Labs 07/10/25 16:53 07/18/25 15:45 Labs: Laboratory Results - last 48 hr 07/18/25 15:45 Sodium 136 Potassium 4.3 Chloride 104 Carbon Dioxide 25 Anion Gap 11 L BUN 20 H Creatinine 1.09 Estim Creat Clear Calc 98.8 Estimated GFR > 60 Total Bilirubin 0.3 Direct Bilirubin 0.1 AST 30 ALT 40 Alkaline Phosphatase 71 Ammonia 74 H Total Protein 7.4 Albumin 4.2 Valproic Acid 27.1 L [place] 0.28 L Medications Medications Current Medications Acetaminophen (Acetaminophen 325 Mg Tablet) 650 mg PO Q6H PRN PRN Reason: Headache/Pain, Scale 1-10 Al Hydroxide/Mg Hydroxide (Magnesium Hydrox/Alum Hydrox 30 Ml Oral.Susp) 30 ml PO Q6H PRN PRN Reason: Heartburn/Nausea Brexpiprazole (Brexpiprazole 2 Mg Tablet) 2 mg PO DAILY YOBANI Last Admin: 07/19/25 08:12 Dose: 2 mg Divalproex Sodium (Divalproex Sodium 500 Mg Tablet.Dr) 1,000 mg PO BEDTIME YOBANI Last Admin: 07/18/25 20:23 Dose: 1,000 mg Hydroxyzine HCl (Hydroxyzine Hcl 50 Mg Tablet) 50 mg PO Q8H PRN PRN Reason: Anxiety Last Admin: 07/18/25 20:25 Dose: 50 mg [place] Carbonate ([place] Carbonate Er 300 Mg Tablet.Er) 600 mg PO BEDTIME YOBANI Last Admin: 07/18/25 20:23 Dose: 600 mg Lorazepam (Lorazepam 1 Mg Tablet) 1 mg PO DAILY PRN PRN Reason: Anxiety Last Admin: 07/19/25 08:17 Dose: 1 mg Lurasidone HCl (Lurasidone Hcl 20 Mg Tablet) 60 mg PO BEDTIME YOBANI Last Admin: 07/18/25 20:23 Dose: 60 mg Magnesium Hydroxide (Milk Of Magnesia 30 Ml Oral.Susp) 30 ml PO DAILY PRN PRN Reason: Constipation Melatonin (Melatonin 3 Mg Tablet) 9 mg PO BEDTIME PRN PRN Reason: Insomnia Last Admin: 07/18/25 20:24 Dose: 9 mg Mirtazapine (Mirtazapine 30 Mg Tablet) 30 mg PO BEDTIME YOBANI Last Admin: 07/18/25 20:23 Dose: 30 mg Naproxen (Naproxen 500 Mg Tablet) 500 mg PO Q12H PRN PRN Reason: Knee and shoulder pain Last Admin: 07/18/25 15:02 Dose: 500 mg Nicotine Polacrilex (Nicotine Polacrilex 2 Mg Gum) 4 mg BUCCAL Q2H PRN PRN Reason: Nicotine Cravings Nystatin (Nystatin Powder 15 Gm Bottle) 1 appl TOPICAL BID YOBANI; Protocol Last Admin: 07/19/25 08:14 Dose: Not Given Prazosin HCl 5 mg/ Prazosin (HCl 1 mg) 6 mg PO BEDTIME YOBANI Last Admin: 07/18/25 20:23 Dose: 6 mg Propranolol HCl (Propranolol Hcl 20 Mg Tablet) 20 mg PO BID PRN; Protocol PRN Reason: Anxiety Last Admin: 07/18/25 15:01 Dose: 20 mg Pseudoephedrine HCl (Pseudoephedrine Hcl 30 Mg Tablet) 30 mg PO Q6H PRN PRN Reason: Congestion Last Admin: 07/12/25 21:19 Dose: 30 mg Trazodone HCl (Trazodone Hcl 100 Mg Tablet) 200 mg PO BEDTIME YOBANI Last Admin: 07/18/25 20:24 Dose: 200 mg Trazodone HCl (Trazodone Hcl 50 Mg Tablet) 50 mg PO BEDTIME MRX1 PRN PRN Reason: Insomnia Last Admin: 07/18/25 21:53 Dose: 50 mg Allergies Allergies Allergy/AdvReac Type Severity Reaction Status Date / Time duloxetine (From CYMBALTA) Allergy Unknown RASH Verified 07/10/25 16:23 shrimp Allergy Anaphylaxis Verified 07/10/25 16:23 Assessment & Plan Assessment & Plan (1) Bipolar disorder, now depressed: Qualifiers: Current episode severity: unspecified Qualified Code(s): F31.30 - Bipolar disorder, current episode depressed, mild or moderate severity, unspecified Status: Acute Code(s): F31.30 - Bipolar disorder, current episode depressed, mild or moderate severity, unspecified (2) PTSD (post-traumatic stress disorder): Status: Acute Code(s): F43.10 - Post-traumatic stress disorder, unspecified Plan Patient is a 49 years old bilingual speaking male with history of unspecified bipolar d/o and PTSD who self presented reported SI with a plan to overdose. Increased anxiety and depression which has impacting his ability to function and attended to ADLs for the past weeks. He was here admitted to back in May 31 with the same presentation. Formulation/clinical reasoning: Increased depression, anxiety, and SI with plan overdose on medication the past couple weeks after discharge from the hospital. History of numerous inpatient level of care admission, history of wants suicide attempt when he was [age] years old via overdose on medications. History of bipolar, PTSD. Even the above information, patient will be benefit in restrictive environment for medication judgment, provide therapeutic environment to keep him safe and learn coping skills, and refer patient back to outpatient psychiatry services upon discharge. Plan: Patient on 15 minute checks for safety. Admitted to . CV. Work with treatment team to do collateral. He good like to step-down to [facility] upon discharge for aftercare. He opens for ECT treatment. VPA level for 07/12 and labs works. BUN slightly elevated. 07/11/25: He can be a good candidate for ECT treatment, history of ECT treatment about 15 years ago Taper down on Latuda per patient requests. He also agreed to take medication at bedtime instead 1700 to see if actually help with not sleeping during the day. Latuda from 100 mg down to 80 mg scheduled at bedtime, even with food. Add lithium on as a second mood stabilizer: [place] ER 300 at bedtime. History of taking this lower sex drive as side effects, he is aware and wanted to back on. Continue with Depakote extended release a 1000 at bedtime. He used to take 1250 mg. We will confirm and increase if necessary. Level prior to discharge was sub therapeutic. Patient aware to inform his outpatient psychiatrist, but dose not increased. Rexulti 1 mg daily in the morning for mood. Continue with prazosin, Remeron and trazodone. Reports vivid dream from trazodone. Add melatonin 9 mg at bedtime as needed for insomnia. 07/12: Keeping to self. laying in bed most of shift. Patient reports feeling depressed; pt stated, I don't think my medications are right. I want to think about maybe getting ECT again . denies SI/HI/VH/AH .Continue current tx plan. 07/13/2025: Order lithium level after the weekend. Increase prazosin 4 mg 07/14: increase prazosin to 5mg 07/15: Patient continues to report feeling depressed; he reports not sleeping well at night, despite nursing reporting he slept 8 hours through the night with PRN medications. Pt declined Latuda yesterday; pt stated, I don't want to keep taking the Latuda ; dose decreased to 60mg PO bedtime. [place] level 0.22 today; [place] dose increased to 600mg PO bedtime. Patient reports he is still thinking about ECT ; awaiting consult from Dr. Ocampo. Patient denies SI/HI/VH/AH. 07/16: Patient continues to report feeling depressed; continues to report not sleeping well d/t nightmares. Discussed increasing Prazosin, which pt is agreeable. He reports high levels of anxiety d/t ruminating on medications. per nursing, slept 8 hours last night. Prazosin increased to 6mg PO bedtime. Rexulti increased to 2mg PO daily. denies SI/HI/VH/AH. 07/17: Laying in bed. Encouraged to attend groups. Patient continues to report feeling depressed; continues to report not sleeping well despite nursing reporting pt slept 7 hours last night. Continues ruminating on medications. denies SI/HI/VH/AH. Continue current tx plan. 07/18: Isolating to room. Patient continues to report feeling depressed; pt stated, I still feel the same. I'm still depressed. I don't do well with being patient until the medications work . Slept 8 hours last night, pt reports he did not have nightmares. Continues ruminating on medications. denies SI/HI/VH/AH. Continue current tx plan. 07/19: Patient continues to report feeling depressed; pt stated, I'm still depressed. I'm depressed about my living situation, my daughter not talking to me for 2 years and my medications . Not attending groups. Continues ruminating on medications. denies SI/HI/VH/AH. Remeron increased to 45mg PO bedtime. [place] ER increased to 900mg PO bedtime. Ammonia level 74 on 07/18/25; ordered Lactulose 40gm PO daily. Patient aware of medication changes. Patient educated on: diagnosis, medication risk/benefits and therapeutic strategies Reason for continued inpatient stay Substantial Risk for: med/psych decompensation Time Spent With Patient Time: Total time managing care of this patient today _20___ minutes.
[2025-07-19 16:08] VITALS: BP 146/91; PULSE 83
[2025-07-19 19:45] VITALS: BP 141/75; PULSE 73; TEMP 37.1; O2SAT 97
[2025-07-19] MEDS: Prazosin HCL 5 MG, Prazosin HCL 1 MG 6 MG PO (20:27)
[2025-07-20 07:44] VITALS: BP 123/65; PULSE 66; RESP 16; TEMP 36.8; O2SAT 95
[2025-07-20 13:00] VITALS: BP 166/96; PULSE 84
--- NOTE | 2025-07-20 14:24 | HO.PSYCHPN ---
Subjective Subjective Date of Service: 07/20/25 Reason For Visit: PTSD; Bipolar disorder Subjective Notes: Conditional Voluntary Interim History: Patient continues to report feeling depressed; Continues ruminating on medications. Pacing unit hallway at times. Showered. denies SI/HI/VH/AH. Continue current tx plan. Medication Compliance: Yes Side effects from medications: No Attending Groups: No Mental Status Exam Mental Status Exam Narrative: Pt is alert and oriented; behavior is cooperative and calm; dressed in casual attire; mood is described as depressed ; eye contact appropriate; Speech is normal rate, volume and not pressured; thought process is organized; Thought content is on tx; denies SI/HI/AH/VH. Diagnostics Vital Signs (24Hr): Vital Signs - 24 hr 07/19/25 16:08 07/19/25 19:45 07/20/25 07:44 Temperature 98.7 F 98.3 F Pulse Rate 83 73 66 Respiratory Rate 16 Blood Pressure 146/91 H 141/75 H 123/65 Pulse Oximetry 97 95 Oxygen Delivery Method Room Air Room Air 07/20/25 13:00 Temperature Pulse Rate 84 Respiratory Rate Blood Pressure 166/96 H Pulse Oximetry Oxygen Delivery Method BMI result Body Mass Index 32.3 Labs 07/10/25 16:53 07/18/25 15:45 Labs: Laboratory Results - last 48 hr 07/18/25 15:45 Sodium 136 Potassium 4.3 Chloride 104 Carbon Dioxide 25 Anion Gap 11 L BUN 20 H Creatinine 1.09 Estim Creat Clear Calc 98.8 Estimated GFR > 60 Total Bilirubin 0.3 Direct Bilirubin 0.1 AST 30 ALT 40 Alkaline Phosphatase 71 Ammonia 74 H Total Protein 7.4 Albumin 4.2 Valproic Acid 27.1 L [place] 0.28 L Medications Medications Current Medications Acetaminophen (Acetaminophen 325 Mg Tablet) 650 mg PO Q6H PRN PRN Reason: Headache/Pain, Scale 1-10 Al Hydroxide/Mg Hydroxide (Magnesium Hydrox/Alum Hydrox 30 Ml Oral.Susp) 30 ml PO Q6H PRN PRN Reason: Heartburn/Nausea Brexpiprazole (Brexpiprazole 2 Mg Tablet) 2 mg PO DAILY [facility] Last Admin: 07/20/25 08:49 Dose: 2 mg Divalproex Sodium (Divalproex Sodium 500 Mg Tablet.) 1,000 mg PO BEDTIME [facility] Last Admin: 07/19/25 20:28 Dose: 1,000 mg Hydroxyzine HCl (Hydroxyzine Hcl 50 Mg Tablet) 50 mg PO Q6H PRN PRN Reason: Anxiety Last Admin: 07/20/25 11:07 Dose: 50 mg Lactulose (Lactulose 20 Gm/30 Ml Solution) 40 gm PO DAILY [facility] Last Admin: 07/20/25 08:50 Dose: 40 gm [place] Carbonate ([place] Carbonate Er 450 Mg Tablet.Er) 900 mg PO BEDTIME [facility] Last Admin: 07/19/25 20:29 Dose: 900 mg Lurasidone HCl (Lurasidone Hcl 20 Mg Tablet) 60 mg PO BEDTIME [facility] Last Admin: 07/19/25 20:28 Dose: 60 mg Magnesium Hydroxide (Milk Of Magnesia 30 Ml Oral.Susp) 30 ml PO DAILY PRN PRN Reason: Constipation Melatonin (Melatonin 3 Mg Tablet) 9 mg PO BEDTIME PRN PRN Reason: Insomnia Last Admin: 07/19/25 20:29 Dose: 9 mg Mirtazapine (Mirtazapine 15 Mg Tablet) 45 mg PO BEDTIME [facility] Last Admin: 07/19/25 20:27 Dose: 45 mg Naproxen (Naproxen 500 Mg Tablet) 500 mg PO Q12H PRN PRN Reason: Knee and shoulder pain Last Admin: 07/19/25 16:09 Dose: 500 mg Prazosin HCl 5 mg/ Prazosin (HCl 1 mg) 6 mg PO BEDTIME [facility] Last Admin: 07/19/25 20:27 Dose: 6 mg Propranolol HCl (Propranolol Hcl 20 Mg Tablet) 20 mg PO BID PRN; Protocol PRN Reason: Anxiety Last Admin: 07/20/25 13:00 Dose: 20 mg Pseudoephedrine HCl (Pseudoephedrine Hcl 30 Mg Tablet) 30 mg PO Q6H PRN PRN Reason: Congestion Last Admin: 07/12/25 21:19 Dose: 30 mg Trazodone HCl (Trazodone Hcl 100 Mg Tablet) 200 mg PO BEDTIME [facility] Last Admin: 07/19/25 20:29 Dose: 200 mg Trazodone HCl (Trazodone Hcl 50 Mg Tablet) 50 mg PO BEDTIME MRX1 PRN PRN Reason: Insomnia Last Admin: 07/19/25 20:29 Dose: 50 mg Allergies Allergies Allergy/AdvReac Type Severity Reaction Status Date / Time duloxetine (From [facility]) Allergy Unknown RASH Verified 07/10/25 16:23 shrimp Allergy Anaphylaxis Verified 07/10/25 16:23 Assessment & Plan Assessment & Plan (1) Bipolar disorder, now depressed: Qualifiers: Current episode severity: unspecified Qualified Code(s): F31.30 - Bipolar disorder, current episode depressed, mild or moderate severity, unspecified Status: Acute Code(s): F31.30 - Bipolar disorder, current episode depressed, mild or moderate severity, unspecified (2) PTSD (post-traumatic stress disorder): Status: Acute Code(s): F43.10 - Post-traumatic stress disorder, unspecified Plan Patient is a 49 years old bilingual speaking male with history of unspecified bipolar d/o and PTSD who self presented reported SI with a plan to overdose. Increased anxiety and depression which has impacting his ability to function and attended to ADLs for the past weeks. He was here admitted to back in May 31 with the same presentation. Formulation/clinical reasoning: Increased depression, anxiety, and SI with plan overdose on medication the past couple weeks after discharge from the hospital. History of numerous inpatient level of care admission, history of wants suicide attempt when he was [age] years old via overdose on medications. History of bipolar, PTSD. Even the above information, patient will be benefit in restrictive environment for medication judgment, provide therapeutic environment to keep him safe and learn coping skills, and refer patient back to outpatient psychiatry services upon discharge. Plan: Patient on 15 minute checks for safety. Admitted to . CV. Work with treatment team to do collateral. He good like to step-down to [facility] upon discharge for aftercare. He opens for ECT treatment. VPA level for 07/12 and labs works. BUN slightly elevated. 07/11/25: He can be a good candidate for ECT treatment, history of ECT treatment about 15 years ago Taper down on Latuda per patient requests. He also agreed to take medication at bedtime instead 1700 to see if actually help with not sleeping during the day. Latuda from 100 mg down to 80 mg scheduled at bedtime, even with food. Add lithium on as a second mood stabilizer: [place] ER 300 at bedtime. History of taking this lower sex drive as side effects, he is aware and wanted to back on. Continue with Depakote extended release a 1000 at bedtime. He used to take 1250 mg. We will confirm and increase if necessary. Level prior to discharge was sub therapeutic. Patient aware to inform his outpatient psychiatrist, but dose not increased. Rexulti 1 mg daily in the morning for mood. Continue with prazosin, Remeron and trazodone. Reports vivid dream from trazodone. Add melatonin 9 mg at bedtime as needed for insomnia. 07/12: Keeping to self. laying in bed most of shift. Patient reports feeling depressed; pt stated, I don't think my medications are right. I want to think about maybe getting ECT again . denies SI/HI/VH/AH .Continue current tx plan. 07/13/2025: Order lithium level after the weekend. Increase prazosin 4 mg 07/14: increase prazosin to 5mg 07/15: Patient continues to report feeling depressed; he reports not sleeping well at night, despite nursing reporting he slept 8 hours through the night with PRN medications. Pt declined Latuda yesterday; pt stated, I don't want to keep taking the Latuda ; dose decreased to 60mg PO bedtime. [place] level 0.22 today; [place] dose increased to 600mg PO bedtime. Patient reports he is still thinking about ECT ; awaiting consult from Dr. Ocampo. Patient denies SI/HI/VH/AH. 07/16: Patient continues to report feeling depressed; continues to report not sleeping well d/t nightmares. Discussed increasing Prazosin, which pt is agreeable. He reports high levels of anxiety d/t ruminating on medications. per nursing, slept 8 hours last night. Prazosin increased to 6mg PO bedtime. Rexulti increased to 2mg PO daily. denies SI/HI/VH/AH. 07/17: Laying in bed. Encouraged to attend groups. Patient continues to report feeling depressed; continues to report not sleeping well despite nursing reporting pt slept 7 hours last night. Continues ruminating on medications. denies SI/HI/VH/AH. Continue current tx plan. 07/18: Isolating to room. Patient continues to report feeling depressed; pt stated, I still feel the same. I'm still depressed. I don't do well with being patient until the medications work . Slept 8 hours last night, pt reports he did not have nightmares. Continues ruminating on medications. denies SI/HI/VH/AH. Continue current tx plan. 07/19: Patient continues to report feeling depressed; pt stated, I'm still depressed. I'm depressed about my living situation, my daughter not talking to me for 2 years and my medications . Not attending groups. Continues ruminating on medications. denies SI/HI/VH/AH. Remeron increased to 45mg PO bedtime. [place] ER increased to 900mg PO bedtime. Ammonia level 74 on 07/18/25; ordered Lactulose 40gm PO daily. Patient aware of medication changes. 07/20: Patient continues to report feeling depressed; Continues ruminating on medications. Pacing unit hallway at times. Showered. denies SI/HI/VH/AH. Continue current tx plan. Patient educated on: diagnosis, medication risk/benefits and therapeutic strategies Reason for continued inpatient stay Substantial Risk for: med/psych decompensation Time Spent With Patient Time: Total time managing care of this patient today _20___ minutes.
[2025-07-20 19:10] VITALS: BP 155/82; PULSE 76; RESP 20; TEMP 37.1; O2SAT 98
[2025-07-21 07:42] VITALS: BP 146/67; PULSE 64; RESP 16; TEMP 36.4; O2SAT 99
--- NOTE | 2025-07-21 08:30 | P.PNPSI_ITS ---
Subjective Subjective Date of Service: 07/21/25 Reason For Visit: PTSD; Bipolar disorder Subjective Notes: Conditional Voluntary Interim History: Patient continues to report feeling depressed; perseveration on medications. Pt declined [place] and prazosin last night. Patient stated, I don't want to take prazosin because its not helping with my nightmares and [place] is causing my ammonia to go up ; pt was educated regarding medications. Nursing provided educational handout material regarding [place]. DC Prazosin. Decrease Latuda to 40mg PO bedtime. Valproic acid and ammonia level to be drawn tomorrow. denies SI/HI/VH/AH. Continue current tx plan. Medication Compliance: Yes Attending Groups: No Mental Status Exam Mental Status Exam Narrative: Pt is alert and oriented; behavior is cooperative and calm; dressed in casual attire; mood is described as depressed ; eye contact appropriate; Speech is normal rate, volume and not pressured; thought process is organized; Thought content is on tx; denies SI/HI/AH/VH. Diagnostics Vital Signs (24Hr): Vital Signs - 24 hr 07/20/25 13:00 07/20/25 19:10 07/21/25 07:42 Temperature 98.8 F 97.5 F Pulse Rate 84 76 64 Respiratory Rate 20 16 Blood Pressure 166/96 H 155/82 H 146/67 H Pulse Oximetry 98 99 Oxygen Delivery Method Room Air Room Air BMI result Body Mass Index 32.3 Labs 07/10/25 16:53 07/18/25 15:45 Medications Medications Current Medications Acetaminophen (Acetaminophen 325 Mg Tablet) 650 mg PO Q6H PRN PRN Reason: Headache/Pain, Scale 1-10 Al Hydroxide/Mg Hydroxide (Magnesium Hydrox/Alum Hydrox 30 Ml Oral.Susp) 30 ml PO Q6H PRN PRN Reason: Heartburn/Nausea Brexpiprazole (Brexpiprazole 2 Mg Tablet) 2 mg PO DAILY [facility] Last Admin: 07/20/25 08:49 Dose: 2 mg Divalproex Sodium (Divalproex Sodium 500 Mg Tablet.) 1,000 mg PO BEDTIME [facility] Last Admin: 07/20/25 20:23 Dose: 1,000 mg Hydroxyzine HCl (Hydroxyzine Hcl 50 Mg Tablet) 50 mg PO Q6H PRN PRN Reason: Anxiety Last Admin: 07/20/25 19:18 Dose: 50 mg Lactulose (Lactulose 20 Gm/30 Ml Solution) 40 gm PO DAILY [facility] Last Admin: 07/20/25 08:50 Dose: 40 gm [place] Carbonate ([place] Carbonate Er 450 Mg Tablet.Er) 900 mg PO BEDTIME [facility] Last Admin: 07/20/25 20:29 Dose: Not Given Lorazepam (Lorazepam 1 Mg Tablet) 1 mg PO DAILY PRN PRN Reason: severe anxiety Last Admin: 07/20/25 16:14 Dose: 1 mg Lurasidone HCl (Lurasidone Hcl 20 Mg Tablet) 60 mg PO BEDTIME [facility] Last Admin: 07/20/25 20:23 Dose: 60 mg Magnesium Hydroxide (Milk Of Magnesia 30 Ml Oral.Susp) 30 ml PO DAILY PRN PRN Reason: Constipation Melatonin (Melatonin 3 Mg Tablet) 9 mg PO BEDTIME PRN PRN Reason: Insomnia Last Admin: 07/20/25 20:23 Dose: 9 mg Mirtazapine (Mirtazapine 15 Mg Tablet) 45 mg PO BEDTIME [facility] Last Admin: 07/20/25 20:24 Dose: 45 mg Naproxen (Naproxen 500 Mg Tablet) 500 mg PO Q12H PRN PRN Reason: Knee and shoulder pain Last Admin: 07/19/25 16:09 Dose: 500 mg Prazosin HCl 5 mg/ Prazosin (HCl 1 mg) 6 mg PO BEDTIME [facility] Last Admin: 07/20/25 20:29 Dose: Not Given Propranolol HCl (Propranolol Hcl 20 Mg Tablet) 20 mg PO BID PRN; Protocol PRN Reason: Anxiety Last Admin: 07/20/25 13:00 Dose: 20 mg Pseudoephedrine HCl (Pseudoephedrine Hcl 30 Mg Tablet) 30 mg PO Q6H PRN PRN Reason: Congestion Last Admin: 07/12/25 21:19 Dose: 30 mg Trazodone HCl (Trazodone Hcl 100 Mg Tablet) 200 mg PO BEDTIME [facility] Last Admin: 07/20/25 20:22 Dose: 200 mg Trazodone HCl (Trazodone Hcl 50 Mg Tablet) 50 mg PO BEDTIME MRX1 PRN PRN Reason: Insomnia Last Admin: 07/20/25 20:23 Dose: 50 mg Allergies Allergies Allergy/AdvReac Type Severity Reaction Status Date / Time [facility] ([facility] Allergy Unknown RASH Verified 07/10/25 16:23 shrimp Allergy Anaphylaxis Verified 07/10/25 16:23 Assessment & Plan Assessment & Plan (1) Bipolar disorder, now depressed: Qualifiers: Current episode severity: unspecified Qualified Code(s): F31.30 - Bipolar disorder, current episode depressed, mild or moderate severity, unspecified Status: Acute Code(s): F31.30 - Bipolar disorder, current episode depressed, mild or moderate severity, unspecified (2) PTSD (post-traumatic stress disorder): Status: Acute Code(s): F43.10 - Post-traumatic stress disorder, unspecified Plan Patient is a 49 years old bilingual speaking male with history of unspecified bipolar d/o and PTSD who self presented reported SI with a plan to overdose. Increased anxiety and depression which has impacting his ability to function and attended to ADLs for the past weeks. He was here admitted to back in May 31 with the same presentation. Formulation/clinical reasoning: Increased depression, anxiety, and SI with plan overdose on medication the past couple weeks after discharge from the hospital. History of numerous inpatient level of care admission, history of wants suicide attempt when he was [age] years old via overdose on medications. History of bipolar, PTSD. Even the above information, patient will be benefit in restrictive environment for medication judgment, provide therapeutic environment to keep him safe and learn coping skills, and refer patient back to outpatient psychiatry services upon discharge. Plan: Patient on 15 minute checks for safety. Admitted to . CV. Work with treatment team to do collateral. He good like to step-down to [facility] upon discharge for aftercare. He opens for ECT treatment. VPA level for 07/12 and labs works. BUN slightly elevated. 07/11/25: He can be a good candidate for ECT treatment, history of ECT treatment about 15 years ago Taper down on Latuda per patient requests. He also agreed to take medication at bedtime instead 1700 to see if actually help with not sleeping during the day. Latuda from 100 mg down to 80 mg scheduled at bedtime, even with food. Add lithium on as a second mood stabilizer: [place] ER 300 at bedtime. History of taking this lower sex drive as side effects, he is aware and wanted to back on. Continue with Depakote extended release a 1000 at bedtime. He used to take 1250 mg. We will confirm and increase if necessary. Level prior to discharge was sub therapeutic. Patient aware to inform his outpatient psychiatrist, but dose not increased. Ruulti 1 mg daily in the morning for mood. Continue with prazosin, Remeron and trazodone. Reports vivid dream from trazodone. Add melatonin 9 mg at bedtime as needed for insomnia. 07/12: Keeping to self. laying in bed most of shift. Patient reports feeling depressed; pt stated, I don't think my medications are right. I want to think about maybe getting ECT again . denies SI/HI/VH/AH .Continue current tx plan. 07/13/2025: Order lithium level after the weekend. Increase prazosin 4 mg 07/14: increase prazosin to 5mg 07/15: Patient continues to report feeling depressed; he reports not sleeping well at night, despite nursing reporting he slept 8 hours through the night with PRN medications. Pt declined Latuda yesterday; pt stated, I don't want to keep taking the Latuda ; dose decreased to 60mg PO bedtime. [place] level 0.22 today; [place] dose increased to 600mg PO bedtime. Patient reports he is still thinking about ECT ; awaiting consult from Dr. Ocampo. Patient denies SI/HI/VH/AH. 07/16: Patient continues to report feeling depressed; continues to report not sleeping well d/t nightmares. Discussed increasing Prazosin, which pt is agreeable. He reports high levels of anxiety d/t ruminating on medications. per nursing, slept 8 hours last night. Prazosin increased to 6mg PO bedtime. Rexulti increased to 2mg PO daily. denies SI/HI/VH/AH. 07/17: Laying in bed. Encouraged to attend groups. Patient continues to report feeling depressed; continues to report not sleeping well despite nursing reporting pt slept 7 hours last night. Continues ruminating on medications. denies SI/HI/VH/AH. Continue current tx plan. 07/18: Isolating to room. Patient continues to report feeling depressed; pt stated, I still feel the same. I'm still depressed. I don't do well with being patient until the medications work . Slept 8 hours last night, pt reports he did not have nightmares. Continues ruminating on medications. denies SI/HI/VH/AH. Continue current tx plan. 07/19: Patient continues to report feeling depressed; pt stated, I'm still depressed. I'm depressed about my living situation, my daughter not talking to me for 2 years and my medications . Not attending groups. Continues ruminating on medications. denies SI/HI/VH/AH. Remeron increased to 45mg PO bedtime. [place] ER increased to 900mg PO bedtime. Ammonia level 74 on 07/18/25; ordered Lactulose 40gm PO daily. Patient aware of medication changes. 07/20: Patient continues to report feeling depressed; Continues ruminating on medications. Pacing unit hallway at times. Showered. denies SI/HI/VH/AH. Continue current tx plan. 07/21:Patient continues to report feeling depressed; perseveration on medications. Pt declined [place] and prazosin last night. Patient stated, I don't want to take prazosin because its not helping with my nightmares and [place] is causing my ammonia to go up ; pt was educated regarding medications. Nursing provided educational handout material regarding [place]. DC Prazosin. Decrease Latuda to 40mg PO bedtime. Valproic acid and ammonia level to be drawn tomorrow. denies SI/HI/VH/AH. Continue current tx plan. Patient educated on: diagnosis and medication risk/benefits Reason for continued inpatient stay Substantial Risk for: med/psych decompensation Time Spent With Patient Time: Total time managing care of this patient today _20___ minutes.
[2025-07-21 19:18] VITALS: BP 143/92; PULSE 82
[2025-07-21 20:50] VITALS: BP 143/92; PULSE 82; RESP 16; TEMP 36.8; O2SAT 98
[2025-07-22 07:15] VITALS: BP 135/62; PULSE 57; RESP 14; TEMP 36.4; O2SAT 96
[2025-07-22 08:29] LABS: Ammonia 41 umol/L (13-55)
[2025-07-22 08:46] LABS: Alanine Aminotransferase 35 U/L (0-40); Albumin Level 3.9 g/dL (3.5-5.0); Alkaline Phosphatase 59 U/L (39-117); Aspartate Amino Transferase 26 U/L (5-37); Total Protein 6.8 g/dL (6.5-8.0)
--- NOTE | 2025-07-22 13:22 | HO.PSYCHPN ---
Subjective Subjective Date of Service: 07/22/25 Reason For Visit: PTSD; Bipolar disorder Subjective Notes: Conditional Voluntary Interim History: Patient continues to report feeling depressed; perseveration on medications. Pt declined Depakote last night. Patient stated, I don't want to take Depakote because it's causing my ammonia to go up. I want a lesser dose or to come off of it; pt was reeducated regarding medications. Nursing also tried to reeducate. denies SI/HI/VH/AH. He reports not sleeping well despite nursing reporting pt slept for 8 hours. Decrease Depakote to 750mg PO bedtime. Valproic acid <12.5, ammonia level 41 on 07/22/25. DC Ruulti. Start: Anafranil 25mg PO bedtime for OCD treatment; risks/benefits reviewed. pt agreed to trial. Medication Compliance: Intermittent Side effects from medications: No Attending Groups: No Mental Status Exam Mental Status Exam Narrative: Pt is alert and oriented; behavior is cooperative and calm; dressed in casual attire; mood is described as depressed ; eye contact appropriate; Speech is normal rate, volume and not pressured; thought process is organized; Thought content is on tx; denies SI/HI/AH/VH. Diagnostics Vital Signs (24Hr): Vital Signs - 24 hr 07/21/25 19:18 07/21/25 20:50 07/22/25 07:15 Temperature 98.2 F 97.6 F Pulse Rate 82 82 57 Respiratory Rate 16 14 Blood Pressure 143/92 H 143/92 H 135/62 Pulse Oximetry 98 96 Oxygen Delivery Method Room Air Room Air BMI result Body Mass Index 32.3 Labs 07/10/25 16:53 07/18/25 15:45 Labs: Laboratory Results - last 48 hr 07/22/25 07:57 Total Bilirubin 0.5 Direct Bilirubin 0.2 AST 26 ALT 35 Alkaline Phosphatase 59 Ammonia 41 Total Protein 6.8 Albumin 3.9 Valproic Acid < 12.5 L Medications Medications Current Medications Acetaminophen (Acetaminophen 325 Mg Tablet) 650 mg PO Q6H PRN PRN Reason: Headache/Pain, Scale 1-10 Al Hydroxide/Mg Hydroxide (Magnesium Hydrox/Alum Hydrox 30 Ml Oral.Susp) 30 ml PO Q6H PRN PRN Reason: Heartburn/Nausea Brexpiprazole (Brexpiprazole 2 Mg Tablet) 2 mg PO DAILY YOBANI Last Admin: 07/22/25 09:05 Dose: 2 mg Divalproex Sodium (Divalproex Sodium 500 Mg Tablet.Dr) 1,000 mg PO BEDTIME YOBANI Last Admin: 07/21/25 21:59 Dose: Not Given Hydroxyzine HCl (Hydroxyzine Hcl 50 Mg Tablet) 50 mg PO Q6H PRN PRN Reason: Anxiety Last Admin: 07/21/25 16:19 Dose: 50 mg [place] Carbonate ([place] Carbonate Er 450 Mg Tablet.Er) 900 mg PO BEDTIME YOBANI Last Admin: 07/21/25 21:40 Dose: 900 mg Lorazepam (Lorazepam 1 Mg Tablet) 1 mg PO DAILY PRN PRN Reason: severe anxiety Last Admin: 07/22/25 11:33 Dose: 1 mg Lurasidone HCl (Lurasidone Hcl 40 Mg Tablet) 40 mg PO BEDTIME YOBANI Last Admin: 07/21/25 21:40 Dose: 40 mg Magnesium Hydroxide (Milk Of Magnesia 30 Ml Oral.Susp) 30 ml PO DAILY PRN PRN Reason: Constipation Melatonin (Melatonin 3 Mg Tablet) 9 mg PO BEDTIME PRN PRN Reason: Insomnia Last Admin: 07/21/25 21:39 Dose: 9 mg Mirtazapine (Mirtazapine 15 Mg Tablet) 45 mg PO BEDTIME YOBANI Last Admin: 07/21/25 21:40 Dose: 45 mg Naproxen (Naproxen 500 Mg Tablet) 500 mg PO Q12H PRN PRN Reason: Knee and shoulder pain Last Admin: 07/19/25 16:09 Dose: 500 mg Propranolol HCl (Propranolol Hcl 20 Mg Tablet) 20 mg PO BID PRN; Protocol PRN Reason: Anxiety Last Admin: 07/21/25 19:18 Dose: 20 mg Pseudoephedrine HCl (Pseudoephedrine Hcl 30 Mg Tablet) 30 mg PO Q6H PRN PRN Reason: Congestion Last Admin: 07/12/25 21:19 Dose: 30 mg Trazodone HCl (Trazodone Hcl 100 Mg Tablet) 200 mg PO BEDTIME YOBANI Last Admin: 07/21/25 21:40 Dose: 200 mg Trazodone HCl (Trazodone Hcl 50 Mg Tablet) 50 mg PO BEDTIME MRX1 PRN PRN Reason: Insomnia Last Admin: 07/21/25 21:40 Dose: 50 mg Allergies Allergies Allergy/AdvReac Type Severity Reaction Status Date / Time duloxetine (From CYMBALTA) Allergy Unknown RASH Verified 07/10/25 16:23 shrimp Allergy Anaphylaxis Verified 07/10/25 16:23 Assessment & Plan Assessment & Plan (1) Bipolar disorder, now depressed: Qualifiers: Current episode severity: unspecified Qualified Code(s): F31.30 - Bipolar disorder, current episode depressed, mild or moderate severity, unspecified Status: Acute Code(s): F31.30 - Bipolar disorder, current episode depressed, mild or moderate severity, unspecified (2) PTSD (post-traumatic stress disorder): Status: Acute Code(s): F43.10 - Post-traumatic stress disorder, unspecified Plan Patient is a 49 years old bilingual speaking male with history of unspecified bipolar d/o and PTSD who self presented reported SI with a plan to overdose. Increased anxiety and depression which has impacting his ability to function and attended to ADLs for the past weeks. He was here admitted to back in May 31 with the same presentation. Formulation/clinical reasoning: Increased depression, anxiety, and SI with plan overdose on medication the past couple weeks after discharge from the hospital. History of numerous inpatient level of care admission, history of wants suicide attempt when he was [age] years old via overdose on medications. History of bipolar, PTSD. Even the above information, patient will be benefit in restrictive environment for medication judgment, provide therapeutic environment to keep him safe and learn coping skills, and refer patient back to outpatient psychiatry services upon discharge. Plan: Patient on 15 minute checks for safety. Admitted to . CV. Work with treatment team to do collateral. He good like to step-down to [facility] upon discharge for aftercare. He opens for ECT treatment. VPA level for 07/12 and labs works. BUN slightly elevated. 07/11/25: He can be a good candidate for ECT treatment, history of ECT treatment about 15 years ago Taper down on Latuda per patient requests. He also agreed to take medication at bedtime instead 1700 to see if actually help with not sleeping during the day. Latuda from 100 mg down to 80 mg scheduled at bedtime, even with food. Add lithium on as a second mood stabilizer: [place] ER 300 at bedtime. History of taking this lower sex drive as side effects, he is aware and wanted to back on. Continue with Depakote extended release a 1000 at bedtime. He used to take 1250 mg. We will confirm and increase if necessary. Level prior to discharge was sub therapeutic. Patient aware to inform his outpatient psychiatrist, but dose not increased. Rexulti 1 mg daily in the morning for mood. Continue with prazosin, Remeron and trazodone. Reports vivid dream from trazodone. Add melatonin 9 mg at bedtime as needed for insomnia. 07/12: Keeping to self. laying in bed most of shift. Patient reports feeling depressed; pt stated, I don't think my medications are right. I want to think about maybe getting ECT again . denies SI/HI/VH/AH .Continue current tx plan. 07/13/2025: Order lithium level after the weekend. Increase prazosin 4 mg 07/14: increase prazosin to 5mg 07/15: Patient continues to report feeling depressed; he reports not sleeping well at night, despite nursing reporting he slept 8 hours through the night with PRN medications. Pt declined Latuda yesterday; pt stated, I don't want to keep taking the Latuda ; dose decreased to 60mg PO bedtime. [place] level 0.22 today; [place] dose increased to 600mg PO bedtime. Patient reports he is still thinking about ECT ; awaiting consult from Dr. Ocampo. Patient denies SI/HI/VH/AH. 07/16: Patient continues to report feeling depressed; continues to report not sleeping well d/t nightmares. Discussed increasing Prazosin, which pt is agreeable. He reports high levels of anxiety d/t ruminating on medications. per nursing, slept 8 hours last night. Prazosin increased to 6mg PO bedtime. Rexulti increased to 2mg PO daily. denies SI/HI/VH/AH. 07/17: Laying in bed. Encouraged to attend groups. Patient continues to report feeling depressed; continues to report not sleeping well despite nursing reporting pt slept 7 hours last night. Continues ruminating on medications. denies SI/HI/VH/AH. Continue current tx plan. 07/18: Isolating to room. Patient continues to report feeling depressed; pt stated, I still feel the same. I'm still depressed. I don't do well with being patient until the medications work . Slept 8 hours last night, pt reports he did not have nightmares. Continues ruminating on medications. denies SI/HI/VH/AH. Continue current tx plan. 07/19: Patient continues to report feeling depressed; pt stated, I'm still depressed. I'm depressed about my living situation, my daughter not talking to me for 2 years and my medications . Not attending groups. Continues ruminating on medications. denies SI/HI/VH/AH. Remeron increased to 45mg PO bedtime. [place] ER increased to 900mg PO bedtime. Ammonia level 74 on 07/18/25; ordered Lactulose 40gm PO daily. Patient aware of medication changes. 07/20: Patient continues to report feeling depressed; Continues ruminating on medications. Pacing unit hallway at times. Showered. denies SI/HI/VH/AH. Continue current tx plan. 07/21:Patient continues to report feeling depressed; perseveration on medications. Pt declined [place] and prazosin last night. Patient stated, I don't want to take prazosin because its not helping with my nightmares and [place] is causing my ammonia to go up ; pt was educated regarding medications. Nursing provided educational handout material regarding [place]. DC Prazosin. Decrease Latuda to 40mg PO bedtime. Valproic acid and ammonia level to be drawn tomorrow. denies SI/HI/VH/AH. Continue current tx plan. 07/22: Patient continues to report feeling depressed; perseveration on medications. Pt declined Depakote last night. Patient stated, I don't want to take Depakote because it's causing my ammonia to go up. I want a lesser dose or to come off of it; pt was reeducated regarding medications. Nursing also tried to reeducate. denies SI/HI/VH/AH. He reports not sleeping well despite nursing reporting pt slept for 8 hours. Decrease Depakote to 750mg PO bedtime. Valproic acid <12.5, ammonia level 41 on 07/22/25. LUIS MIGUEL Rexulti. Start: Anafranil 25mg PO bedtime for OCD treatment; risks/benefits reviewed. pt agreed to trial. Patient educated on: diagnosis, medication risk/benefits and therapeutic strategies Reason for continued inpatient stay Substantial Risk for: med/psych decompensation Time Spent With Patient Time: Total time managing care of this patient today _20___ minutes.
[2025-07-22 14:18] VITALS: BP 139/94; PULSE 90
[2025-07-22 20:00] VITALS: BP 165/97; PULSE 88; RESP 16; TEMP 37.1; O2SAT 97
[2025-07-22 21:13] VITALS: BP 148/91
[2025-07-23 07:35] VITALS: BP 152/73; PULSE 60; RESP 16; TEMP 36.9; O2SAT 98
--- NOTE | 2025-07-23 11:30 | P.PNPSI_ITS ---
Subjective Subjective Date of Service: 07/23/25 Reason For Visit: PTSD; Bipolar disorder Subjective Notes: Conditional Voluntary Interim History: Laying in bed most of morning. Patient continues to report feeling depressed; perseveration on medications, pt reports he is feeling hopeful about medication changes. medication compliant. denies any side effects from medication changes. denies SI/HI/VH/AH. He continues to report not sleeping well despite nursing reporting pt slept for 8 hours. Continue tx plan. Medication Compliance: Yes Side effects from medications: No Attending Groups: No Mental Status Exam Mental Status Exam Narrative: Pt is alert and oriented; behavior is cooperative and calm; dressed in casual attire; mood is described as depressed ; eye contact appropriate; Speech is normal rate, volume and not pressured; thought process is organized; Thought content is on tx; denies SI/HI/AH/VH. Diagnostics Vital Signs (24Hr): Vital Signs - 24 hr 07/22/25 14:18 07/22/25 20:00 07/22/25 21:13 Temperature 98.8 F Pulse Rate 90 88 Respiratory Rate 16 Blood Pressure 139/94 H 165/97 H 148/91 H Pulse Oximetry 97 Oxygen Delivery Method Room Air 07/23/25 07:35 Temperature 98.5 F Pulse Rate 60 Respiratory Rate 16 Blood Pressure 152/73 H Pulse Oximetry 98 Oxygen Delivery Method Room Air BMI result Body Mass Index 32.3 Labs 07/10/25 16:53 07/18/25 15:45 Labs: Laboratory Results - last 48 hr 07/22/25 07:57 Total Bilirubin 0.5 Direct Bilirubin 0.2 AST 26 ALT 35 Alkaline Phosphatase 59 Ammonia 41 Total Protein 6.8 Albumin 3.9 Valproic Acid < 12.5 L Medications Medications Current Medications Acetaminophen (Acetaminophen 325 Mg Tablet) 650 mg PO Q6H PRN PRN Reason: Headache/Pain, Scale 1-10 Al Hydroxide/Mg Hydroxide (Magnesium Hydrox/Alum Hydrox 30 Ml Oral.Susp) 30 ml PO Q6H PRN PRN Reason: Heartburn/Nausea Clomipramine HCl (Clomipramine Hcl 25 Mg Capsule) 25 mg PO BEDTIME YOBANI Last Admin: 07/22/25 20:22 Dose: 25 mg Divalproex Sodium (Divalproex Sodium 250 Mg Tablet.) 750 mg PO BEDTIME YOBANI Last Admin: 07/22/25 20:22 Dose: 750 mg Hydroxyzine HCl (Hydroxyzine Hcl 50 Mg Tablet) 50 mg PO Q6H PRN PRN Reason: Anxiety Last Admin: 07/22/25 17:42 Dose: 50 mg [place] Carbonate ([place] Carbonate Er 450 Mg Tablet.Er) 900 mg PO BEDTIME YOBANI Last Admin: 07/22/25 20:23 Dose: 900 mg Lorazepam (Lorazepam 1 Mg Tablet) 1 mg PO DAILY PRN PRN Reason: severe anxiety Last Admin: 07/22/25 11:33 Dose: 1 mg Lurasidone HCl (Lurasidone Hcl 40 Mg Tablet) 40 mg PO BEDTIME YOBANI Last Admin: 07/22/25 20:22 Dose: 40 mg Magnesium Hydroxide (Milk Of Magnesia 30 Ml Oral.Susp) 30 ml PO DAILY PRN PRN Reason: Constipation Melatonin (Melatonin 3 Mg Tablet) 9 mg PO BEDTIME PRN PRN Reason: Insomnia Last Admin: 07/22/25 20:21 Dose: 9 mg Mirtazapine (Mirtazapine 15 Mg Tablet) 45 mg PO BEDTIME YOBANI Last Admin: 07/22/25 20:22 Dose: 45 mg Naproxen (Naproxen 500 Mg Tablet) 500 mg PO Q12H PRN PRN Reason: Knee and shoulder pain Last Admin: 07/19/25 16:09 Dose: 500 mg Propranolol HCl (Propranolol Hcl 20 Mg Tablet) 20 mg PO BID YOBANI; Protocol Last Admin: 07/23/25 08:23 Dose: 20 mg Pseudoephedrine HCl (Pseudoephedrine Hcl 30 Mg Tablet) 30 mg PO Q6H PRN PRN Reason: Congestion Last Admin: 07/12/25 21:19 Dose: 30 mg Trazodone HCl (Trazodone Hcl 100 Mg Tablet) 200 mg PO BEDTIME YOBANI Last Admin: 07/22/25 20:22 Dose: 200 mg Trazodone HCl (Trazodone Hcl 50 Mg Tablet) 50 mg PO BEDTIME MRX1 PRN PRN Reason: Insomnia Last Admin: 07/22/25 20:22 Dose: 50 mg Allergies Allergies Allergy/AdvReac Type Severity Reaction Status Date / Time duloxetine (From CYMBALTA) Allergy Unknown RASH Verified 07/10/25 16:23 shrimp Allergy Anaphylaxis Verified 07/10/25 16:23 Assessment & Plan Assessment & Plan (1) Bipolar disorder, now depressed: Qualifiers: Current episode severity: unspecified Qualified Code(s): F31.30 - Bipolar disorder, current episode depressed, mild or moderate severity, unspecified Status: Acute Code(s): F31.30 - Bipolar disorder, current episode depressed, mild or moderate severity, unspecified (2) PTSD (post-traumatic stress disorder): Status: Acute Code(s): F43.10 - Post-traumatic stress disorder, unspecified Plan Patient is a 49 years old bilingual speaking male with history of unspecified bipolar d/o and PTSD who self presented reported SI with a plan to overdose. Increased anxiety and depression which has impacting his ability to function and attended to ADLs for the past weeks. He was here admitted to back in May 31 with the same presentation. Formulation/clinical reasoning: Increased depression, anxiety, and SI with plan overdose on medication the past couple weeks after discharge from the hospital. History of numerous inpatient level of care admission, history of wants suicide attempt when he was [age] years old via overdose on medications. History of bipolar, PTSD. Even the above information, patient will be benefit in restrictive environment for medication judgment, provide therapeutic environment to keep him safe and learn coping skills, and refer patient back to outpatient psychiatry services upon discharge. Plan: Patient on 15 minute checks for safety. Admitted to . CV. Work with treatment team to do collateral. He good like to step-down to [facility] upon discharge for aftercare. He opens for ECT treatment. VPA level for 07/12 and labs works. BUN slightly elevated. 07/11/25: He can be a good candidate for ECT treatment, history of ECT treatment about 15 years ago Taper down on Latuda per patient requests. He also agreed to take medication at bedtime instead 1700 to see if actually help with not sleeping during the day. Latuda from 100 mg down to 80 mg scheduled at bedtime, even with food. Add lithium on as a second mood stabilizer: [place] ER 300 at bedtime. History of taking this lower sex drive as side effects, he is aware and wanted to back on. Continue with Depakote extended release a 1000 at bedtime. He used to take 1250 mg. We will confirm and increase if necessary. Level prior to discharge was sub therapeutic. Patient aware to inform his outpatient psychiatrist, but dose not increased. Rexulti 1 mg daily in the morning for mood. Continue with prazosin, Remeron and trazodone. Reports vivid dream from trazodone. Add melatonin 9 mg at bedtime as needed for insomnia. 07/12: Keeping to self. laying in bed most of shift. Patient reports feeling depressed; pt stated, I don't think my medications are right. I want to think about maybe getting ECT again . denies SI/HI/VH/AH .Continue current tx plan. 07/13/2025: Order lithium level after the weekend. Increase prazosin 4 mg 07/14: increase prazosin to 5mg 07/15: Patient continues to report feeling depressed; he reports not sleeping well at night, despite nursing reporting he slept 8 hours through the night with PRN medications. Pt declined Latuda yesterday; pt stated, I don't want to keep taking the Latuda ; dose decreased to 60mg PO bedtime. [place] level 0.22 today; [place] dose increased to 600mg PO bedtime. Patient reports he is still thinking about ECT ; awaiting consult from Dr. Ocampo. Patient denies SI/HI/VH/AH. 07/16: Patient continues to report feeling depressed; continues to report not sleeping well d/t nightmares. Discussed increasing Prazosin, which pt is agreeable. He reports high levels of anxiety d/t ruminating on medications. per nursing, slept 8 hours last night. Prazosin increased to 6mg PO bedtime. Rexulti increased to 2mg PO daily. denies SI/HI/VH/AH. 07/17: Laying in bed. Encouraged to attend groups. Patient continues to report feeling depressed; continues to report not sleeping well despite nursing reporting pt slept 7 hours last night. Continues ruminating on medications. denies SI/HI/VH/AH. Continue current tx plan. 07/18: Isolating to room. Patient continues to report feeling depressed; pt stated, I still feel the same. I'm still depressed. I don't do well with being patient until the medications work . Slept 8 hours last night, pt reports he did not have nightmares. Continues ruminating on medications. denies SI/HI/VH/AH. Continue current tx plan. 07/19: Patient continues to report feeling depressed; pt stated, I'm still depressed. I'm depressed about my living situation, my daughter not talking to me for 2 years and my medications . Not attending groups. Continues ruminating on medications. denies SI/HI/VH/AH. Remeron increased to 45mg PO bedtime. [place] ER increased to 900mg PO bedtime. Ammonia level 74 on 07/18/25; ordered Lactulose 40gm PO daily. Patient aware of medication changes. 07/20: Patient continues to report feeling depressed; Continues ruminating on medications. Pacing unit hallway at times. Showered. denies SI/HI/VH/AH. Continue current tx plan. 07/21:Patient continues to report feeling depressed; perseveration on medications. Pt declined [place] and prazosin last night. Patient stated, I don't want to take prazosin because its not helping with my nightmares and [place] is causing my ammonia to go up ; pt was educated regarding medications. Nursing provided educational handout material regarding [place]. LUIS MIGUEL Prazosin. Decrease Latuda to 40mg PO bedtime. Valproic acid and ammonia level to be drawn tomorrow. denies SI/HI/VH/AH. Continue current tx plan. 07/22: Patient continues to report feeling depressed; perseveration on medications. Pt declined Depakote last night. Patient stated, I don't want to take Depakote because it's causing my ammonia to go up. I want a lesser dose or to come off of it; pt was reeducated regarding medications. Nursing also tried to reeducate. denies SI/HI/VH/AH. He reports not sleeping well despite nursing reporting pt slept for 8 hours. Decrease Depakote to 750mg PO bedtime. Valproic acid <12.5, ammonia level 41 on 07/22/25. LUIS MIGUEL Rexulti. Start: Anafranil 25mg PO bedtime for OCD treatment; risks/benefits reviewed. pt agreed to trial. 07/23: Laying in bed most of morning. Patient continues to report feeling depressed; perseveration on medications, pt reports he is feeling hopeful about medication changes. medication compliant. denies any side effects from medication changes. denies SI/HI/VH/AH. He continues to report not sleeping well despite nursing reporting pt slept for 8 hours. Continue tx plan. Patient educated on: diagnosis, medication risk/benefits and therapeutic strategies Reason for continued inpatient stay Substantial Risk for: med/psych decompensation Time Spent With Patient Time: Total time managing care of this patient today _20___ minutes.
[2025-07-23 18:33] VITALS: BP 171/95
[2025-07-23 18:51] VITALS: PULSE 76
[2025-07-23 19:30] VITALS: BP 150/84; PULSE 78; RESP 16; TEMP 36.9; O2SAT 99
[2025-07-23 20:30] VITALS: BP 152/89; PULSE 71; RESP 16
[2025-07-23 20:55] VITALS: BP 152/89; PULSE 71
[2025-07-24 07:25] VITALS: BP 144/86; PULSE 62; RESP 14; TEMP 37.1; O2SAT 97
[2025-07-24 14:31] VITALS: BP 156/90; PULSE 80
--- NOTE | 2025-07-24 14:45 | P.PNPSI_ITS ---
Subjective Subjective Date of Service: 07/24/25 Reason For Visit: PTSD; Bipolar disorder Subjective Notes: Conditional Voluntary Interim History: Patient reports feeling a little better today ; pt stated, I'm getting out of bed more and talking to people . Continues to report feeling depressed; perseveration on medications; Anafranil increased to 50mg PO bedtime. Medication Compliance: Yes Side effects from medications: No Attending Groups: Intermittent Mental Status Exam Mental Status Exam Narrative: Pt is alert and oriented; behavior is cooperative and calm; dressed in casual attire; mood is described as depressed ; eye contact appropriate; Speech is normal rate, volume and not pressured; thought process is organized; Thought content is on tx; denies SI/HI/AH/VH. Diagnostics Vital Signs (24Hr): Vital Signs - 24 hr 07/23/25 18:33 07/23/25 18:51 07/23/25 19:30 Temperature 98.5 F Pulse Rate 76 78 Respiratory Rate 16 Blood Pressure 171/95 H 150/84 H Pulse Oximetry 99 Oxygen Delivery Method Room Air 07/23/25 20:30 07/23/25 20:55 07/24/25 07:25 Temperature 98.7 F Pulse Rate 71 71 62 Respiratory Rate 16 14 Blood Pressure 152/89 H 152/89 H 144/86 H Pulse Oximetry 97 Oxygen Delivery Method Room Air 07/24/25 14:31 Temperature Pulse Rate 80 Respiratory Rate Blood Pressure 156/90 H Pulse Oximetry Oxygen Delivery Method BMI result Body Mass Index 32.3 Labs 07/10/25 16:53 07/18/25 15:45 Medications Medications Current Medications Acetaminophen (Acetaminophen 325 Mg Tablet) 650 mg PO Q6H PRN PRN Reason: Headache/Pain, Scale 1-10 Al Hydroxide/Mg Hydroxide (Magnesium Hydrox/Alum Hydrox 30 Ml Oral.Susp) 30 ml PO Q6H PRN PRN Reason: Heartburn/Nausea Clomipramine HCl (Clomipramine Hcl 25 Mg Capsule) 50 mg PO BEDTIME YOBANI Divalproex Sodium (Divalproex Sodium 250 Mg Tablet.Dr) 750 mg PO BEDTIME YOBANI Last Admin: 07/23/25 20:48 Dose: 750 mg Hydroxyzine HCl (Hydroxyzine Hcl 50 Mg Tablet) 50 mg PO Q6H PRN PRN Reason: Anxiety Last Admin: 07/23/25 13:03 Dose: 50 mg [place] Carbonate ([place] Carbonate Er 450 Mg Tablet.Er) 900 mg PO BEDTIME YOBANI Last Admin: 07/23/25 20:48 Dose: 900 mg Lorazepam (Lorazepam 1 Mg Tablet) 1 mg PO DAILY PRN PRN Reason: severe anxiety Last Admin: 07/24/25 13:11 Dose: 1 mg Lurasidone HCl (Lurasidone Hcl 40 Mg Tablet) 40 mg PO BEDTIME YOBANI Last Admin: 07/23/25 20:48 Dose: 40 mg Magnesium Hydroxide (Milk Of Magnesia 30 Ml Oral.Susp) 30 ml PO DAILY PRN PRN Reason: Constipation Melatonin (Melatonin 3 Mg Tablet) 9 mg PO BEDTIME PRN PRN Reason: Insomnia Last Admin: 07/23/25 20:53 Dose: 9 mg Mirtazapine (Mirtazapine 15 Mg Tablet) 45 mg PO BEDTIME YOBANI Last Admin: 07/23/25 20:48 Dose: 45 mg Naproxen (Naproxen 500 Mg Tablet) 500 mg PO Q12H PRN PRN Reason: Knee and shoulder pain Last Admin: 07/23/25 17:40 Dose: 500 mg Propranolol HCl (Propranolol Hcl 20 Mg Tablet) 20 mg PO BID YOBANI; Protocol Last Admin: 07/24/25 08:16 Dose: 20 mg Trazodone HCl (Trazodone Hcl 100 Mg Tablet) 200 mg PO BEDTIME YOBANI Last Admin: 07/23/25 20:48 Dose: 200 mg Trazodone HCl (Trazodone Hcl 50 Mg Tablet) 50 mg PO BEDTIME MRX1 PRN PRN Reason: Insomnia Last Admin: 07/23/25 20:53 Dose: 50 mg Allergies Allergies Allergy/AdvReac Type Severity Reaction Status Date / Time duloxetine (From CYMBALTA) Allergy Unknown RASH Verified 07/10/25 16:23 shrimp Allergy Anaphylaxis Verified 07/10/25 16:23 Assessment & Plan Assessment & Plan (1) Bipolar disorder, now depressed: Qualifiers: Current episode severity: unspecified Qualified Code(s): F31.30 - Bipolar disorder, current episode depressed, mild or moderate severity, unspecified Status: Acute Code(s): F31.30 - Bipolar disorder, current episode depressed, mild or moderate severity, unspecified (2) PTSD (post-traumatic stress disorder): Status: Acute Code(s): F43.10 - Post-traumatic stress disorder, unspecified Plan Patient is a 49 years old bilingual speaking male with history of unspecified bipolar d/o and PTSD who self presented reported SI with a plan to overdose. Increased anxiety and depression which has impacting his ability to function and attended to ADLs for the past weeks. He was here admitted to back in May 31 with the same presentation. Formulation/clinical reasoning: Increased depression, anxiety, and SI with plan overdose on medication the past couple weeks after discharge from the hospital. History of numerous inpatient level of care admission, history of wants suicide attempt when he was [age] years old via overdose on medications. History of bipolar, PTSD. Even the above information, patient will be benefit in restrictive environment for medication judgment, provide therapeutic environment to keep him safe and learn coping skills, and refer patient back to outpatient psychiatry services upon discharge. Plan: Patient on 15 minute checks for safety. Admitted to . CV. Work with treatment team to do collateral. He good like to step-down to [facility] upon discharge for aftercare. He opens for ECT treatment. VPA level for 07/12 and labs works. BUN slightly elevated. 07/11/25: He can be a good candidate for ECT treatment, history of ECT treatment about 15 years ago Taper down on Latuda per patient requests. He also agreed to take medication at bedtime instead 1700 to see if actually help with not sleeping during the day. Latuda from 100 mg down to 80 mg scheduled at bedtime, even with food. Add lithium on as a second mood stabilizer: [place] ER 300 at bedtime. History of taking this lower sex drive as side effects, he is aware and wanted to back on. Continue with Depakote extended release a 1000 at bedtime. He used to take 1250 mg. We will confirm and increase if necessary. Level prior to discharge was sub therapeutic. Patient aware to inform his outpatient psychiatrist, but dose not increased. Rexulti 1 mg daily in the morning for mood. Continue with prazosin, Remeron and trazodone. Reports vivid dream from trazodone. Add melatonin 9 mg at bedtime as needed for insomnia. 07/12: Keeping to self. laying in bed most of shift. Patient reports feeling depressed; pt stated, I don't think my medications are right. I want to think about maybe getting ECT again . denies SI/HI/VH/AH .Continue current tx plan. 07/13/2025: Order lithium level after the weekend. Increase prazosin 4 mg 07/14: increase prazosin to 5mg 07/15: Patient continues to report feeling depressed; he reports not sleeping well at night, despite nursing reporting he slept 8 hours through the night with PRN medications. Pt declined Latuda yesterday; pt stated, I don't want to keep taking the Latuda ; dose decreased to 60mg PO bedtime. [place] level 0.22 today; [place] dose increased to 600mg PO bedtime. Patient reports he is still thinking about ECT ; awaiting consult from Dr. Ocampo. Patient denies SI/HI/VH/AH. 07/16: Patient continues to report feeling depressed; continues to report not sleeping well d/t nightmares. Discussed increasing Prazosin, which pt is agreeable. He reports high levels of anxiety d/t ruminating on medications. per nursing, slept 8 hours last night. Prazosin increased to 6mg PO bedtime. Rexulti increased to 2mg PO daily. denies SI/HI/VH/AH. 07/17: Laying in bed. Encouraged to attend groups. Patient continues to report feeling depressed; continues to report not sleeping well despite nursing reporting pt slept 7 hours last night. Continues ruminating on medications. denies SI/HI/VH/AH. Continue current tx plan. 07/18: Isolating to room. Patient continues to report feeling depressed; pt stated, I still feel the same. I'm still depressed. I don't do well with being patient until the medications work . Slept 8 hours last night, pt reports he did not have nightmares. Continues ruminating on medications. denies SI/HI/VH/AH. Continue current tx plan. 07/19: Patient continues to report feeling depressed; pt stated, I'm still depressed. I'm depressed about my living situation, my daughter not talking to me for 2 years and my medications . Not attending groups. Continues ruminating on medications. denies SI/HI/VH/AH. Remeron increased to 45mg PO bedtime. [place] ER increased to 900mg PO bedtime. Ammonia level 74 on 07/18/25; ordered Lactulose 40gm PO daily. Patient aware of medication changes. 07/20: Patient continues to report feeling depressed; Continues ruminating on medications. Pacing unit hallway at times. Showered. denies SI/HI/VH/AH. Continue current tx plan. 07/21:Patient continues to report feeling depressed; perseveration on medications. Pt declined [place] and prazosin last night. Patient stated, I don't want to take prazosin because its not helping with my nightmares and [place] is causing my ammonia to go up ; pt was educated regarding medications. Nursing provided educational handout material regarding [place]. DC Prazosin. Decrease Latuda to 40mg PO bedtime. Valproic acid and ammonia level to be drawn tomorrow. denies SI/HI/VH/AH. Continue current tx plan. 07/22: Patient continues to report feeling depressed; perseveration on medications. Pt declined Depakote last night. Patient stated, I don't want to take Depakote because it's causing my ammonia to go up. I want a lesser dose or to come off of it; pt was reeducated regarding medications. Nursing also tried to reeducate. denies SI/HI/VH/AH. He reports not sleeping well despite nursing reporting pt slept for 8 hours. Decrease Depakote to 750mg PO bedtime. Valproic acid <12.5, ammonia level 41 on 07/22/25. DC Rexulti. Start: Anafranil 25mg PO bedtime for OCD treatment; risks/benefits reviewed. pt agreed to trial. 07/23: Laying in bed most of morning. Patient continues to report feeling depressed; perseveration on medications, pt reports he is feeling hopeful about medication changes. medication compliant. denies any side effects from medication changes. denies SI/HI/VH/AH. He continues to report not sleeping well despite nursing reporting pt slept for 8 hours. Continue tx plan. 07/24: Patient reports feeling a little better today ; pt stated, I'm getting out of bed more and talking to people . Continues to report feeling depressed; perseveration on medications; Anafranil increased to 50mg PO bedtime. Patient educated on: diagnosis, medication risk/benefits and therapeutic strategies Reason for continued inpatient stay Substantial Risk for: med/psych decompensation Time Spent With Patient Time: Total time managing care of this patient today _20___ minutes.
[2025-07-24 19:00] VITALS: BP 158/96; PULSE 84; RESP 16; O2SAT 96
--- NOTE | 2025-07-24 19:20 | PC.NURSE ---
Provider, Syeda Bueno, notified of repeat BP 158/96 P 80 after receiving Olanzapine 5mg po at 1528 per Sue Finch for bp 156/90 at 1431. Instructions received to give Propranolol 20 mg po as scheduled at hs and Propranolol increased to tid from bid.
[2025-07-24 20:52] VITALS: BP 136/78; PULSE 78; RESP 16
[2025-07-25 07:00] VITALS: BMI 60.0
[2025-07-25 08:00] VITALS: BP 128/76; PULSE 60; RESP 16; TEMP 36.3; O2SAT 95
[2025-07-25 08:35] VITALS: BP 128/76; PULSE 60
--- NOTE | 2025-07-25 09:44 | HO.PSYCHPN ---
Subjective Subjective Date of Service: 07/25/25 Reason For Visit: PTSD; Bipolar disorder Subjective Notes: Conditional Voluntary Interim History: More active during the morning. Patient continues to report feeling a little better ; pt stated, I feel okay today. I feel the medication is helping. My depression is a little less . denies SI/HI/VH/AH. Continue current tx plan. Medication Compliance: Yes Side effects from medications: No Attending Groups: Intermittent Mental Status Exam Mental Status Exam Narrative: Pt is alert and oriented; behavior is cooperative and calm; dressed in casual attire; mood is described as depressed ; eye contact appropriate; Speech is normal rate, volume and not pressured; thought process is organized; Thought content is on tx; denies SI/HI/AH/VH. Diagnostics Vital Signs (24Hr): Vital Signs - 24 hr 07/24/25 14:31 07/24/25 19:00 07/24/25 20:52 Temperature Pulse Rate 80 84 78 Respiratory Rate 16 16 Blood Pressure 156/90 H 158/96 H 136/78 Pulse Oximetry 96 Oxygen Delivery Method Room Air 07/25/25 08:00 07/25/25 08:35 Temperature 97.3 F Pulse Rate 60 60 Respiratory Rate 16 Blood Pressure 128/76 128/76 Pulse Oximetry 95 Oxygen Delivery Method Room Air BMI result Body Mass Index 32.3 Labs 07/10/25 16:53 07/18/25 15:45 Medications Medications Current Medications Acetaminophen (Acetaminophen 325 Mg Tablet) 650 mg PO Q6H PRN PRN Reason: Headache/Pain, Scale 1-10 Al Hydroxide/Mg Hydroxide (Magnesium Hydrox/Alum Hydrox 30 Ml Oral.Susp) 30 ml PO Q6H PRN PRN Reason: Heartburn/Nausea Clomipramine HCl (Clomipramine Hcl 25 Mg Capsule) 50 mg PO BEDTIME YOBANI Last Admin: 07/24/25 20:46 Dose: 50 mg Divalproex Sodium (Divalproex Sodium 250 Mg Tablet.Dr) 750 mg PO BEDTIME YOBANI Last Admin: 07/24/25 20:45 Dose: 750 mg [place] Carbonate ([place] Carbonate Er 450 Mg Tablet.Er) 900 mg PO BEDTIME YOBANI Last Admin: 07/24/25 20:48 Dose: 900 mg Lorazepam (Lorazepam 1 Mg Tablet) 1 mg PO DAILY PRN PRN Reason: severe anxiety Last Admin: 07/24/25 13:11 Dose: 1 mg Lurasidone HCl (Lurasidone Hcl 40 Mg Tablet) 40 mg PO BEDTIME YOBANI Last Admin: 07/24/25 20:45 Dose: 40 mg Magnesium Hydroxide (Milk Of Magnesia 30 Ml Oral.Susp) 30 ml PO DAILY PRN PRN Reason: Constipation Melatonin (Melatonin 3 Mg Tablet) 9 mg PO BEDTIME PRN PRN Reason: Insomnia Last Admin: 07/24/25 20:44 Dose: 9 mg Mirtazapine (Mirtazapine 15 Mg Tablet) 45 mg PO BEDTIME YOBANI Last Admin: 07/24/25 20:46 Dose: 45 mg Naproxen (Naproxen 500 Mg Tablet) 500 mg PO Q12H PRN PRN Reason: Knee and shoulder pain Last Admin: 07/23/25 17:40 Dose: 500 mg Olanzapine (Olanzapine 5 Mg Tablet) 5 mg PO Q4H PRN PRN Reason: anxiety/agitation Last Admin: 07/24/25 19:38 Dose: 5 mg Propranolol HCl (Propranolol Hcl 20 Mg Tablet) 20 mg PO TID YOBANI; Protocol Last Admin: 07/25/25 08:35 Dose: 20 mg Trazodone HCl (Trazodone Hcl 100 Mg Tablet) 200 mg PO BEDTIME YOBANI Last Admin: 07/24/25 20:43 Dose: 200 mg Trazodone HCl (Trazodone Hcl 50 Mg Tablet) 50 mg PO BEDTIME MRX1 PRN PRN Reason: Insomnia Last Admin: 07/24/25 20:43 Dose: 50 mg Allergies Allergies Allergy/AdvReac Type Severity Reaction Status Date / Time duloxetine (From CYMBALTA) Allergy Unknown RASH Verified 07/10/25 16:23 shrimp Allergy Anaphylaxis Verified 07/10/25 16:23 Assessment & Plan Assessment & Plan (1) Bipolar disorder, now depressed: Qualifiers: Current episode severity: unspecified Qualified Code(s): F31.30 - Bipolar disorder, current episode depressed, mild or moderate severity, unspecified Status: Acute Code(s): F31.30 - Bipolar disorder, current episode depressed, mild or moderate severity, unspecified (2) PTSD (post-traumatic stress disorder): Status: Acute Code(s): F43.10 - Post-traumatic stress disorder, unspecified Plan Patient is a 49 years old bilingual speaking male with history of unspecified bipolar d/o and PTSD who self presented reported SI with a plan to overdose. Increased anxiety and depression which has impacting his ability to function and attended to ADLs for the past weeks. He was here admitted to back in May 31 with the same presentation. Formulation/clinical reasoning: Increased depression, anxiety, and SI with plan overdose on medication the past couple weeks after discharge from the hospital. History of numerous inpatient level of care admission, history of wants suicide attempt when he was [age] years old via overdose on medications. History of bipolar, PTSD. Even the above information, patient will be benefit in restrictive environment for medication judgment, provide therapeutic environment to keep him safe and learn coping skills, and refer patient back to outpatient psychiatry services upon discharge. Plan: Patient on 15 minute checks for safety. Admitted to . CV. Work with treatment team to do collateral. He good like to step-down to [facility] upon discharge for aftercare. He opens for ECT treatment. VPA level for 07/12 and labs works. BUN slightly elevated. 07/11/25: He can be a good candidate for ECT treatment, history of ECT treatment about 15 years ago Taper down on Latuda per patient requests. He also agreed to take medication at bedtime instead 1700 to see if actually help with not sleeping during the day. Latuda from 100 mg down to 80 mg scheduled at bedtime, even with food. Add lithium on as a second mood stabilizer: [place] ER 300 at bedtime. History of taking this lower sex drive as side effects, he is aware and wanted to back on. Continue with Depakote extended release a 1000 at bedtime. He used to take 1250 mg. We will confirm and increase if necessary. Level prior to discharge was sub therapeutic. Patient aware to inform his outpatient psychiatrist, but dose not increased. Rexulti 1 mg daily in the morning for mood. Continue with prazosin, Remeron and trazodone. Reports vivid dream from trazodone. Add melatonin 9 mg at bedtime as needed for insomnia. 07/12: Keeping to self. laying in bed most of shift. Patient reports feeling depressed; pt stated, I don't think my medications are right. I want to think about maybe getting ECT again . denies SI/HI/VH/AH .Continue current tx plan. 07/13/2025: Order lithium level after the weekend. Increase prazosin 4 mg 07/14: increase prazosin to 5mg 07/15: Patient continues to report feeling depressed; he reports not sleeping well at night, despite nursing reporting he slept 8 hours through the night with PRN medications. Pt declined Latuda yesterday; pt stated, I don't want to keep taking the Latuda ; dose decreased to 60mg PO bedtime. [place] level 0.22 today; [place] dose increased to 600mg PO bedtime. Patient reports he is still thinking about ECT ; awaiting consult from Dr. Ocampo. Patient denies SI/HI/VH/AH. 07/16: Patient continues to report feeling depressed; continues to report not sleeping well d/t nightmares. Discussed increasing Prazosin, which pt is agreeable. He reports high levels of anxiety d/t ruminating on medications. per nursing, slept 8 hours last night. Prazosin increased to 6mg PO bedtime. Rexulti increased to 2mg PO daily. denies SI/HI/VH/AH. 07/17: Laying in bed. Encouraged to attend groups. Patient continues to report feeling depressed; continues to report not sleeping well despite nursing reporting pt slept 7 hours last night. Continues ruminating on medications. denies SI/HI/VH/AH. Continue current tx plan. 07/18: Isolating to room. Patient continues to report feeling depressed; pt stated, I still feel the same. I'm still depressed. I don't do well with being patient until the medications work . Slept 8 hours last night, pt reports he did not have nightmares. Continues ruminating on medications. denies SI/HI/VH/AH. Continue current tx plan. 07/19: Patient continues to report feeling depressed; pt stated, I'm still depressed. I'm depressed about my living situation, my daughter not talking to me for 2 years and my medications . Not attending groups. Continues ruminating on medications. denies SI/HI/VH/AH. Remeron increased to 45mg PO bedtime. [place] ER increased to 900mg PO bedtime. Ammonia level 74 on 07/18/25; ordered Lactulose 40gm PO daily. Patient aware of medication changes. 07/20: Patient continues to report feeling depressed; Continues ruminating on medications. Pacing unit hallway at times. Showered. denies SI/HI/VH/AH. Continue current tx plan. 07/21:Patient continues to report feeling depressed; perseveration on medications. Pt declined [place] and prazosin last night. Patient stated, I don't want to take prazosin because its not helping with my nightmares and [place] is causing my ammonia to go up ; pt was educated regarding medications. Nursing provided educational handout material regarding [place]. DC Prazosin. Decrease Latuda to 40mg PO bedtime. Valproic acid and ammonia level to be drawn tomorrow. denies SI/HI/VH/AH. Continue current tx plan. 07/22: Patient continues to report feeling depressed; perseveration on medications. Pt declined Depakote last night. Patient stated, I don't want to take Depakote because it's causing my ammonia to go up. I want a lesser dose or to come off of it; pt was reeducated regarding medications. Nursing also tried to reeducate. denies SI/HI/VH/AH. He reports not sleeping well despite nursing reporting pt slept for 8 hours. Decrease Depakote to 750mg PO bedtime. Valproic acid <12.5, ammonia level 41 on 07/22/25. DC Rexulti. Start: Anafranil 25mg PO bedtime for OCD treatment; risks/benefits reviewed. pt agreed to trial. 07/23: Laying in bed most of morning. Patient continues to report feeling depressed; perseveration on medications, pt reports he is feeling hopeful about medication changes. medication compliant. denies any side effects from medication changes. denies SI/HI/VH/AH. He continues to report not sleeping well despite nursing reporting pt slept for 8 hours. Continue tx plan. 07/24: Patient reports feeling a little better today ; pt stated, I'm getting out of bed more and talking to people . Continues to report feeling depressed; perseveration on medications; Anafranil increased to 50mg PO bedtime. 07/25: More active during the morning. Patient continues to report feeling a little better ; pt stated, I feel okay today. I feel the medication is helping. My depression is a little less . denies SI/HI/VH/AH. Continue current tx plan. Patient educated on: diagnosis, medication risk/benefits and therapeutic strategies Reason for continued inpatient stay Substantial Risk for: med/psych decompensation Time Spent With Patient Time: Total time managing care of this patient today _20___ minutes.
[2025-07-25 14:07] VITALS: BP 143/89; PULSE 78
[2025-07-25 14:51] VITALS: BMI 34.2
[2025-07-25 20:16] VITALS: BP 147/83; PULSE 76; RESP 16; TEMP 36.8; O2SAT 97
[2025-07-26 07:35] VITALS: BP 126/79; PULSE 60; RESP 16; TEMP 36.7; O2SAT 96
--- NOTE | 2025-07-26 08:55 | HO.PSYCHPN ---
Subjective Subjective Date of Service: 07/26/25 Reason For Visit: PTSD; Bipolar disorder Subjective Notes: Conditional Voluntary Interim History: Patient reports feeling not bad today; pt reports he will try to continue being more active . Continue to report feeling depressed but states he feels his mood is improving. Embarrass level 0.58 on 07/26/25. Embarrass ER increased to 1,200mg PO bedtime; pt aware. Per nursing, slept 8 hours last night. denies SI/HI/VH/AH. Medication Compliance: Yes Side effects from medications: No Attending Groups: Yes Mental Status Exam Mental Status Exam Narrative: Pt is alert and oriented; behavior is cooperative and calm; dressed in casual attire; mood is described as depressed ; eye contact appropriate; Speech is normal rate, volume and not pressured; thought process is organized; Thought content is on tx; denies SI/HI/AH/VH. Diagnostics Vital Signs (24Hr): Vital Signs - 24 hr 07/25/25 14:07 07/25/25 20:16 07/26/25 07:35 Temperature 98.3 F 98.1 F Pulse Rate 78 76 60 Respiratory Rate 16 16 Blood Pressure 143/89 H 147/83 H 126/79 Pulse Oximetry 97 96 Oxygen Delivery Method Room Air Room Air BMI result Body Mass Index 34.2 Labs 07/10/25 16:53 07/26/25 12:23 Medications Medications Current Medications Acetaminophen (Acetaminophen 325 Mg Tablet) 650 mg PO Q6H PRN PRN Reason: Headache/Pain, Scale 1-10 Al Hydroxide/Mg Hydroxide (Magnesium Hydrox/Alum Hydrox 30 Ml Oral.Susp) 30 ml PO Q6H PRN PRN Reason: Heartburn/Nausea Clomipramine HCl (Clomipramine Hcl 25 Mg Capsule) 50 mg PO BEDTIME YOBANI Last Admin: 07/25/25 20:35 Dose: 50 mg Divalproex Sodium (Divalproex Sodium 250 Mg Tablet.Dr) 750 mg PO BEDTIME YOBANI Last Admin: 07/25/25 20:35 Dose: 750 mg Embarrass Carbonate (Embarrass Carbonate Er 450 Mg Tablet.Er) 900 mg PO BEDTIME YOBANI Last Admin: 07/25/25 20:36 Dose: 900 mg Lorazepam (Lorazepam 1 Mg Tablet) 1 mg PO DAILY PRN PRN Reason: severe anxiety Last Admin: 07/25/25 11:37 Dose: 1 mg Lurasidone HCl (Lurasidone Hcl 40 Mg Tablet) 40 mg PO BEDTIME YOBANI Last Admin: 07/25/25 20:36 Dose: 40 mg Magnesium Hydroxide (Milk Of Magnesia 30 Ml Oral.Susp) 30 ml PO DAILY PRN PRN Reason: Constipation Melatonin (Melatonin 3 Mg Tablet) 9 mg PO BEDTIME PRN PRN Reason: Insomnia Last Admin: 07/25/25 20:35 Dose: 9 mg Mirtazapine (Mirtazapine 15 Mg Tablet) 45 mg PO BEDTIME YOBANI Last Admin: 07/25/25 20:36 Dose: 45 mg Naproxen (Naproxen 500 Mg Tablet) 500 mg PO Q12H PRN PRN Reason: Knee and shoulder pain Last Admin: 07/25/25 11:39 Dose: 500 mg Olanzapine (Olanzapine 5 Mg Tablet) 5 mg PO Q4H PRN PRN Reason: anxiety/agitation Last Admin: 07/25/25 17:50 Dose: 5 mg Propranolol HCl (Propranolol Hcl 20 Mg Tablet) 20 mg PO TID YOBANI; Protocol Last Admin: 07/26/25 08:11 Dose: 20 mg Trazodone HCl (Trazodone Hcl 100 Mg Tablet) 200 mg PO BEDTIME YOBANI Last Admin: 07/25/25 20:35 Dose: 200 mg Trazodone HCl (Trazodone Hcl 50 Mg Tablet) 50 mg PO BEDTIME MRX1 PRN PRN Reason: Insomnia Last Admin: 07/25/25 20:35 Dose: 50 mg Allergies Allergies Allergy/AdvReac Type Severity Reaction Status Date / Time duloxetine (From CYMBALTA) Allergy Unknown RASH Verified 07/10/25 16:23 shrimp Allergy Anaphylaxis Verified 07/10/25 16:23 Assessment & Plan Assessment & Plan (1) Bipolar disorder, now depressed: Qualifiers: Current episode severity: unspecified Qualified Code(s): F31.30 - Bipolar disorder, current episode depressed, mild or moderate severity, unspecified Status: Acute Code(s): F31.30 - Bipolar disorder, current episode depressed, mild or moderate severity, unspecified (2) PTSD (post-traumatic stress disorder): Status: Acute Code(s): F43.10 - Post-traumatic stress disorder, unspecified Plan Patient is a 49 years old bilingual speaking male with history of unspecified bipolar d/o and PTSD who self presented reported SI with a plan to overdose. Increased anxiety and depression which has impacting his ability to function and attended to ADLs for the past weeks. He was here admitted to back in May 31 with the same presentation. Formulation/clinical reasoning: Increased depression, anxiety, and SI with plan overdose on medication the past couple weeks after discharge from the hospital. History of numerous inpatient level of care admission, history of wants suicide attempt when he was [age] years old via overdose on medications. History of bipolar, PTSD. Even the above information, patient will be benefit in restrictive environment for medication judgment, provide therapeutic environment to keep him safe and learn coping skills, and refer patient back to outpatient psychiatry services upon discharge. Plan: Patient on 15 minute checks for safety. Admitted to . CV. Work with treatment team to do collateral. He good like to step-down to [facility] upon discharge for aftercare. He opens for ECT treatment. VPA level for 07/12 and labs works. BUN slightly elevated. 07/11/25: He can be a good candidate for ECT treatment, history of ECT treatment about 15 years ago Taper down on Latuda per patient requests. He also agreed to take medication at bedtime instead 1700 to see if actually help with not sleeping during the day. Latuda from 100 mg down to 80 mg scheduled at bedtime, even with food. Add lithium on as a second mood stabilizer: Embarrass ER 300 at bedtime. History of taking this lower sex drive as side effects, he is aware and wanted to back on. Continue with Depakote extended release a 1000 at bedtime. He used to take 1250 mg. We will confirm and increase if necessary. Level prior to discharge was sub therapeutic. Patient aware to inform his outpatient psychiatrist, but dose not increased. Rexulti 1 mg daily in the morning for mood. Continue with prazosin, Remeron and trazodone. Reports vivid dream from trazodone. Add melatonin 9 mg at bedtime as needed for insomnia. 07/12: Keeping to self. laying in bed most of shift. Patient reports feeling depressed; pt stated, I don't think my medications are right. I want to think about maybe getting ECT again . denies SI/HI/VH/AH .Continue current tx plan. 07/13/2025: Order lithium level after the weekend. Increase prazosin 4 mg 07/14: increase prazosin to 5mg 07/15: Patient continues to report feeling depressed; he reports not sleeping well at night, despite nursing reporting he slept 8 hours through the night with PRN medications. Pt declined Latuda yesterday; pt stated, I don't want to keep taking the Latuda ; dose decreased to 60mg PO bedtime. Embarrass level 0.22 today; Embarrass dose increased to 600mg PO bedtime. Patient reports he is still thinking about ECT ; awaiting consult from Dr. Ocampo. Patient denies SI/HI/VH/AH. 07/16: Patient continues to report feeling depressed; continues to report not sleeping well d/t nightmares. Discussed increasing Prazosin, which pt is agreeable. He reports high levels of anxiety d/t ruminating on medications. per nursing, slept 8 hours last night. Prazosin increased to 6mg PO bedtime. Rexulti increased to 2mg PO daily. denies SI/HI/VH/AH. 07/17: Laying in bed. Encouraged to attend groups. Patient continues to report feeling depressed; continues to report not sleeping well despite nursing reporting pt slept 7 hours last night. Continues ruminating on medications. denies SI/HI/VH/AH. Continue current tx plan. 07/18: Isolating to room. Patient continues to report feeling depressed; pt stated, I still feel the same. I'm still depressed. I don't do well with being patient until the medications work . Slept 8 hours last night, pt reports he did not have nightmares. Continues ruminating on medications. denies SI/HI/VH/AH. Continue current tx plan. 07/19: Patient continues to report feeling depressed; pt stated, I'm still depressed. I'm depressed about my living situation, my daughter not talking to me for 2 years and my medications . Not attending groups. Continues ruminating on medications. denies SI/HI/VH/AH. Remeron increased to 45mg PO bedtime. Embarrass ER increased to 900mg PO bedtime. Ammonia level 74 on 07/18/25; ordered Lactulose 40gm PO daily. Patient aware of medication changes. 07/20: Patient continues to report feeling depressed; Continues ruminating on medications. Pacing unit hallway at times. Showered. denies SI/HI/VH/AH. Continue current tx plan. 07/21:Patient continues to report feeling depressed; perseveration on medications. Pt declined Embarrass and prazosin last night. Patient stated, I don't want to take prazosin because its not helping with my nightmares and Embarrass is causing my ammonia to go up ; pt was educated regarding medications. Nursing provided educational handout material regarding Embarrass. DC Prazosin. Decrease Latuda to 40mg PO bedtime. Valproic acid and ammonia level to be drawn tomorrow. denies SI/HI/VH/AH. Continue current tx plan. 07/22: Patient continues to report feeling depressed; perseveration on medications. Pt declined Depakote last night. Patient stated, I don't want to take Depakote because it's causing my ammonia to go up. I want a lesser dose or to come off of it; pt was reeducated regarding medications. Nursing also tried to reeducate. denies SI/HI/VH/AH. He reports not sleeping well despite nursing reporting pt slept for 8 hours. Decrease Depakote to 750mg PO bedtime. Valproic acid <12.5, ammonia level 41 on 07/22/25. DC Rexulti. Start: Anafranil 25mg PO bedtime for OCD treatment; risks/benefits reviewed. pt agreed to trial. 07/23: Laying in bed most of morning. Patient continues to report feeling depressed; perseveration on medications, pt reports he is feeling hopeful about medication changes. medication compliant. denies any side effects from medication changes. denies SI/HI/VH/AH. He continues to report not sleeping well despite nursing reporting pt slept for 8 hours. Continue tx plan. 07/24: Patient reports feeling a little better today ; pt stated, I'm getting out of bed more and talking to people . Continues to report feeling depressed; perseveration on medications; Anafranil increased to 50mg PO bedtime. 07/25: More active during the morning. Patient continues to report feeling a little better ; pt stated, I feel okay today. I feel the medication is helping. My depression is a little less . denies SI/HI/VH/AH. Continue current tx plan. 07/26: Patient reports feeling not bad today; pt reports he will try to continue being more active . Continue to report feeling depressed but states he feels his mood is improving. Embarrass level 0.58 on 07/26/25. Embarrass ER increased to 1,200mg PO bedtime; pt aware. Per nursing, slept 8 hours last night. denies SI/HI/VH/AH. Patient educated on: diagnosis, medication risk/benefits and therapeutic strategies Reason for continued inpatient stay Substantial Risk for: med/psych decompensation Time Spent With Patient Time: Total time managing care of this patient today _20___ minutes.
[2025-07-26 12:47] LABS: Lithium 0.58 mmol/L (0.60-1.20)
[2025-07-26 12:53] LABS: Anion Gap 12 (12-20); Blood Urea Nitrogen 22 mg/dL (9-16); Carbon Dioxide 29 mmol/L (22-29); Chloride 103 mmol/L (96-108); Creatinine Clr Calc Pharmacy 96.4; Estimated Glomerular Filt Rate > 60; Potassium 4.8 mmol/L (3.3-5.1); Sodium 139 mmol/L (135-145)
[2025-07-26 15:23] VITALS: BP 148/87; PULSE 72
[2025-07-26 20:00] VITALS: BP 123/67; PULSE 89; RESP 18; TEMP 37.4; O2SAT 97
--- NOTE | 2025-07-27 07:46 | P.PNPSI_ITS ---
Subjective Subjective Date of Service: 07/27/25 Reason For Visit: PTSD; Bipolar disorder Subjective Notes: Conditional Voluntary Interim History: Patient reports feeling okay today; looking forward to discharge after the weekend. Feeling supported by friends. Reports sleep energy and appetite okay. Anxiety getting less. In the milieu later in the morning Medication Compliance: Yes Side effects from medications: No Attending Groups: Intermittent Review of Systems Acute medical concerns: No Review of Systems Review of Systems unremarkable Mental Status Exam Mental Status Exam Narrative: Pt is alert and oriented; behavior is cooperative and calm; dressed in casual attire; mood is described as getting better ; eye contact appropriate; Speech is normal rate, volume and not pressured; thought process is organized; Thought content is on tx; denies SI/HI/AH/VH. Diagnostics Vital Signs (24Hr): Vital Signs - 24 hr 07/26/25 15:23 07/26/25 20:00 Temperature 99.3 F Pulse Rate 72 89 Respiratory Rate 18 Blood Pressure 148/87 H 123/67 Pulse Oximetry 97 Oxygen Delivery Method Room Air BMI result Body Mass Index 34.2 Labs 07/10/25 16:53 07/26/25 12:23 Labs: Laboratory Results - last 48 hr 07/26/25 12:23 Sodium 139 Potassium 4.8 Chloride 103 Carbon Dioxide 29 Anion Gap 12 BUN 22 H Creatinine 1.15 Estim Creat Clear Calc 96.4 Estimated GFR > 60 Pablo Pena 0.58 L Medications Medications Current Medications Acetaminophen (Acetaminophen 325 Mg Tablet) 650 mg PO Q6H PRN PRN Reason: Headache/Pain, Scale 1-10 Al Hydroxide/Mg Hydroxide (Magnesium Hydrox/Alum Hydrox 30 Ml Oral.Susp) 30 ml PO Q6H PRN PRN Reason: Heartburn/Nausea Clomipramine HCl (Clomipramine Hcl 25 Mg Capsule) 50 mg PO BEDTIME YOBANI Last Admin: 07/26/25 20:14 Dose: 50 mg Divalproex Sodium (Divalproex Sodium 250 Mg Tablet.Dr) 750 mg PO BEDTIME YOBANI Last Admin: 07/26/25 20:12 Dose: 750 mg Pablo Pena Carbonate (Pablo Pena Carbonate Er 300 Mg Tablet.Er) 1,200 mg PO BEDTIME YOBANI Last Admin: 07/26/25 20:11 Dose: 1,200 mg Lorazepam (Lorazepam 1 Mg Tablet) 1 mg PO DAILY PRN PRN Reason: severe anxiety Last Admin: 07/26/25 11:50 Dose: 1 mg Lurasidone HCl (Lurasidone Hcl 40 Mg Tablet) 40 mg PO BEDTIME YOBANI Last Admin: 07/26/25 20:13 Dose: 40 mg Magnesium Hydroxide (Milk Of Magnesia 30 Ml Oral.Susp) 30 ml PO DAILY PRN PRN Reason: Constipation Melatonin (Melatonin 3 Mg Tablet) 9 mg PO BEDTIME PRN PRN Reason: Insomnia Last Admin: 07/26/25 20:10 Dose: 9 mg Mirtazapine (Mirtazapine 15 Mg Tablet) 45 mg PO BEDTIME YOBANI Last Admin: 07/26/25 20:09 Dose: 45 mg Naproxen (Naproxen 500 Mg Tablet) 500 mg PO Q12H PRN PRN Reason: Knee and shoulder pain Last Admin: 07/25/25 11:39 Dose: 500 mg Olanzapine (Olanzapine 5 Mg Tablet) 5 mg PO Q4H PRN PRN Reason: anxiety/agitation Last Admin: 07/26/25 19:24 Dose: 5 mg Propranolol HCl (Propranolol Hcl 20 Mg Tablet) 20 mg PO TID YOBANI; Protocol Last Admin: 07/26/25 20:13 Dose: 20 mg Trazodone HCl (Trazodone Hcl 100 Mg Tablet) 200 mg PO BEDTIME YOBANI Last Admin: 07/26/25 20:10 Dose: 200 mg Trazodone HCl (Trazodone Hcl 50 Mg Tablet) 50 mg PO BEDTIME MRX1 PRN PRN Reason: Insomnia Last Admin: 07/26/25 20:13 Dose: 50 mg Allergies Allergies Allergy/AdvReac Type Severity Reaction Status Date / Time duloxetine (From CYMBALTA) Allergy Unknown RASH Verified 07/10/25 16:23 shrimp Allergy Anaphylaxis Verified 07/10/25 16:23 Assessment & Plan Assessment & Plan (1) Bipolar disorder, now depressed: Qualifiers: Current episode severity: unspecified Qualified Code(s): F31.30 - Bipolar disorder, current episode depressed, mild or moderate severity, unspecified Status: Acute Code(s): F31.30 - Bipolar disorder, current episode depressed, mild or moderate severity, unspecified (2) PTSD (post-traumatic stress disorder): Status: Acute Code(s): F43.10 - Post-traumatic stress disorder, unspecified Plan Patient is a 49 years old bilingual speaking male with history of unspecified bipolar d/o and PTSD who self presented reported SI with a plan to overdose. Increased anxiety and depression which has impacting his ability to function and attended to ADLs for the past weeks. He was here admitted to back in May 31 with the same presentation. Formulation/clinical reasoning: Increased depression, anxiety, and SI with plan overdose on medication the past couple weeks after discharge from the hospital. History of numerous inpatient level of care admission, history of wants suicide attempt when he was [age] years old via overdose on medications. History of bipolar, PTSD. Even the above information, patient will be benefit in restrictive environment for medication judgment, provide therapeutic environment to keep him safe and learn coping skills, and refer patient back to outpatient psychiatry services upon discharge. Plan: Patient on 15 minute checks for safety. Admitted to . CV. Work with treatment team to do collateral. He good like to step-down to [facility] upon discharge for aftercare. He opens for ECT treatment. VPA level for 07/12 and labs works. BUN slightly elevated. 07/11/25: He can be a good candidate for ECT treatment, history of ECT treatment about 15 years ago Taper down on Latuda per patient requests. He also agreed to take medication at bedtime instead 1700 to see if actually help with not sleeping during the day. Latuda from 100 mg down to 80 mg scheduled at bedtime, even with food. Add lithium on as a second mood stabilizer: Pablo Pena ER 300 at bedtime. History of taking this lower sex drive as side effects, he is aware and wanted to back on. Continue with Depakote extended release a 1000 at bedtime. He used to take 1250 mg. We will confirm and increase if necessary. Level prior to discharge was sub therapeutic. Patient aware to inform his outpatient psychiatrist, but dose not increased. Rexulti 1 mg daily in the morning for mood. Continue with prazosin, Remeron and trazodone. Reports vivid dream from trazodone. Add melatonin 9 mg at bedtime as needed for insomnia. 07/12: Keeping to self. laying in bed most of shift. Patient reports feeling depressed; pt stated, I don't think my medications are right. I want to think about maybe getting ECT again . denies SI/HI/VH/AH .Continue current tx plan. 07/13/2025: Order lithium level after the weekend. Increase prazosin 4 mg 07/14: increase prazosin to 5mg 07/15: Patient continues to report feeling depressed; he reports not sleeping well at night, despite nursing reporting he slept 8 hours through the night with PRN medications. Pt declined Latuda yesterday; pt stated, I don't want to keep taking the Latuda ; dose decreased to 60mg PO bedtime. Pablo Pena level 0.22 today; Pablo Pena dose increased to 600mg PO bedtime. Patient reports he is still thinking about ECT ; awaiting consult from Dr. Ocampo. Patient denies SI/HI/VH/AH. 07/16: Patient continues to report feeling depressed; continues to report not sleeping well d/t nightmares. Discussed increasing Prazosin, which pt is agreeable. He reports high levels of anxiety d/t ruminating on medications. per nursing, slept 8 hours last night. Prazosin increased to 6mg PO bedtime. Rexulti increased to 2mg PO daily. denies SI/HI/VH/AH. 07/17: Laying in bed. Encouraged to attend groups. Patient continues to report feeling depressed; continues to report not sleeping well despite nursing reporting pt slept 7 hours last night. Continues ruminating on medications. denies SI/HI/VH/AH. Continue current tx plan. 07/18: Isolating to room. Patient continues to report feeling depressed; pt stated, I still feel the same. I'm still depressed. I don't do well with being patient until the medications work . Slept 8 hours last night, pt reports he did not have nightmares. Continues ruminating on medications. denies SI/HI/VH/AH. Continue current tx plan. 07/19: Patient continues to report feeling depressed; pt stated, I'm still depressed. I'm depressed about my living situation, my daughter not talking to me for 2 years and my medications . Not attending groups. Continues ruminating on medications. denies SI/HI/VH/AH. Remeron increased to 45mg PO bedtime. Pablo Pena ER increased to 900mg PO bedtime. Ammonia level 74 on 07/18/25; ordered Lactulose 40gm PO daily. Patient aware of medication changes. 07/20: Patient continues to report feeling depressed; Continues ruminating on medications. Pacing unit hallway at times. Showered. denies SI/HI/VH/AH. Continue current tx plan. 07/21:Patient continues to report feeling depressed; perseveration on medications. Pt declined Pablo Pena and prazosin last night. Patient stated, I don't want to take prazosin because its not helping with my nightmares and Pablo Pena is causing my ammonia to go up ; pt was educated regarding medications. Nursing provided educational handout material regarding Pablo Pena. DC Prazosin. Decrease Latuda to 40mg PO bedtime. Valproic acid and ammonia level to be drawn tomorrow. denies SI/HI/VH/AH. Continue current tx plan. 07/22: Patient continues to report feeling depressed; perseveration on medications. Pt declined Depakote last night. Patient stated, I don't want to take Depakote because it's causing my ammonia to go up. I want a lesser dose or to come off of it; pt was reeducated regarding medications. Nursing also tried to reeducate. denies SI/HI/VH/AH. He reports not sleeping well despite nursing reporting pt slept for 8 hours. Decrease Depakote to 750mg PO bedtime. Valproic acid <12.5, ammonia level 41 on 07/22/25. DC Rexulti. Start: Anafranil 25mg PO bedtime for OCD treatment; risks/benefits reviewed. pt agreed to trial. 07/23: Laying in bed most of morning. Patient continues to report feeling depressed; perseveration on medications, pt reports he is feeling hopeful about medication changes. medication compliant. denies any side effects from medication changes. denies SI/HI/VH/AH. He continues to report not sleeping well despite nursing reporting pt slept for 8 hours. Continue tx plan. 07/24: Patient reports feeling a little better today ; pt stated, I'm getting out of bed more and talking to people . Continues to report feeling depressed; perseveration on medications; Anafranil increased to 50mg PO bedtime. 07/25: More active during the morning. Patient continues to report feeling a little better ; pt stated, I feel okay today. I feel the medication is helping. My depression is a little less . denies SI/HI/VH/AH. Continue current tx plan. 07/26: Patient reports feeling not bad today; pt reports he will try to continue being more active . Continue to report feeling depressed but states he feels his mood is improving. Pablo Pena level 0.58 on 07/26/25. Pablo Pena ER increased to 1,200mg PO bedtime; pt aware. Per nursing, slept 8 hours last night. denies SI/HI/VH/AH. 07/27/2025: No changes to current regimen Reason for continued inpatient stay Substantial Risk for: rapid decompensation Time Spent With Patient Time: Total time managing care of this patient today ____ minutes.
[2025-07-27 08:00] VITALS: BP 147/66; PULSE 56; RESP 18; TEMP 36.8; O2SAT 99
[2025-07-27 08:58] VITALS: BP 147/66; PULSE 56
[2025-07-27 13:51] VITALS: BP 147/89
[2025-07-27 15:30] VITALS: BP 154/86; PULSE 77
[2025-07-27 20:00] VITALS: BP 107/66; PULSE 75; RESP 16; TEMP 37.1; O2SAT 99
[2025-07-27 20:30] VITALS: BP 156/89; PULSE 86
[2025-07-28 08:00] VITALS: BP 108/53; PULSE 54; RESP 14; TEMP 36.8; O2SAT 98
[2025-07-28 08:37] VITALS: BP 110/55
[2025-07-28 08:39] VITALS: BP 110/55; PULSE 95
--- NOTE | 2025-07-28 11:34 | HO.PSYCHPN ---
Subjective Subjective Date of Service: 07/28/25 Reason For Visit: PTSD; Bipolar disorder Interim History: Patient reports feeling okay and continues to look forward to discharge after the weekend. Reports sleep energy and appetite okay. Anxiety getting less. In the milieu later in the morning. discussed blood pressure management and will start amlodipine. Medication Compliance: Yes Side effects from medications: No Attending Groups: Intermittent Review of Systems Acute medical concerns: No Review of Systems Review of Systems unremarkable Mental Status Exam Mental Status Exam Narrative: Pt is alert and oriented; behavior is cooperative and calm; dressed in casual attire; mood is described as Good ; eye contact appropriate; Speech is normal rate, volume and not pressured; thought process is organized; Thought content is on tx; denies SI/HI/AH/VH. Diagnostics Vital Signs (24Hr): Vital Signs - 24 hr 07/27/25 13:51 07/27/25 15:30 07/27/25 20:00 Temperature 98.7 F Pulse Rate 77 75 Respiratory Rate 16 Blood Pressure 147/89 H 154/86 H 107/66 Pulse Oximetry 99 Oxygen Delivery Method Room Air 07/27/25 20:30 07/28/25 08:00 07/28/25 08:37 Temperature 98.2 F Pulse Rate 86 54 Respiratory Rate 14 Blood Pressure 156/89 H 108/53 L 110/55 L Pulse Oximetry 98 Oxygen Delivery Method Room Air 07/28/25 08:39 Temperature Pulse Rate 95 Respiratory Rate Blood Pressure 110/55 L Pulse Oximetry Oxygen Delivery Method BMI result Body Mass Index 34.2 Labs 07/10/25 16:53 07/26/25 12:23 Labs: Laboratory Results - last 48 hr 07/26/25 12:23 Sodium 139 Potassium 4.8 Chloride 103 Carbon Dioxide 29 Anion Gap 12 BUN 22 H Creatinine 1.15 Estim Creat Clear Calc 96.4 Estimated GFR > 60 [place] 0.58 L Medications Medications Current Medications Acetaminophen (Acetaminophen 325 Mg Tablet) 650 mg PO Q6H PRN PRN Reason: Headache/Pain, Scale 1-10 Al Hydroxide/Mg Hydroxide (Magnesium Hydrox/Alum Hydrox 30 Ml Oral.Susp) 30 ml PO Q6H PRN PRN Reason: Heartburn/Nausea Amlodipine Besylate (Amlodipine Besylate 5 Mg Tablet) 5 mg PO DAILY YOBANI; Protocol Last Admin: 07/28/25 08:37 Dose: 5 mg Clomipramine HCl (Clomipramine Hcl 25 Mg Capsule) 50 mg PO BEDTIME YOBANI Last Admin: 07/27/25 20:29 Dose: 50 mg Divalproex Sodium (Divalproex Sodium 250 Mg Tablet.Dr) 750 mg PO BEDTIME YOBANI Last Admin: 07/27/25 20:30 Dose: 750 mg [place] Carbonate ([place] Carbonate Er 300 Mg Tablet.Er) 1,200 mg PO BEDTIME YOBANI Last Admin: 07/27/25 20:29 Dose: 1,200 mg Lorazepam (Lorazepam 1 Mg Tablet) 1 mg PO DAILY PRN PRN Reason: severe anxiety Last Admin: 07/27/25 13:51 Dose: 1 mg Lurasidone HCl (Lurasidone Hcl 40 Mg Tablet) 40 mg PO BEDTIME YOBANI Last Admin: 07/27/25 20:30 Dose: 40 mg Magnesium Hydroxide (Milk Of Magnesia 30 Ml Oral.Susp) 30 ml PO DAILY PRN PRN Reason: Constipation Melatonin (Melatonin 3 Mg Tablet) 9 mg PO BEDTIME PRN PRN Reason: Insomnia Last Admin: 07/27/25 20:30 Dose: 9 mg Mirtazapine (Mirtazapine 15 Mg Tablet) 45 mg PO BEDTIME YOBANI Last Admin: 07/27/25 20:30 Dose: 45 mg Naproxen (Naproxen 500 Mg Tablet) 500 mg PO Q12H PRN PRN Reason: Knee and shoulder pain Last Admin: 07/25/25 11:39 Dose: 500 mg Olanzapine (Olanzapine 5 Mg Tablet) 5 mg PO Q4H PRN PRN Reason: anxiety/agitation Last Admin: 07/27/25 19:32 Dose: 5 mg Propranolol HCl (Propranolol Hcl 20 Mg Tablet) 20 mg PO TID YOBANI; Protocol Last Admin: 07/28/25 08:39 Dose: 20 mg Trazodone HCl (Trazodone Hcl 100 Mg Tablet) 200 mg PO BEDTIME YOBANI Last Admin: 07/27/25 20:29 Dose: 200 mg Trazodone HCl (Trazodone Hcl 50 Mg Tablet) 50 mg PO BEDTIME MRX1 PRN PRN Reason: Insomnia Last Admin: 07/27/25 20:29 Dose: 50 mg Allergies Allergies Allergy/AdvReac Type Severity Reaction Status Date / Time [facility] Allergy Unknown RASH Verified 07/10/25 16:23 shrimp Allergy Anaphylaxis Verified 07/10/25 16:23 Assessment & Plan Assessment & Plan (1) Bipolar disorder, now depressed: Qualifiers: Current episode severity: unspecified Qualified Code(s): F31.30 - Bipolar disorder, current episode depressed, mild or moderate severity, unspecified Status: Acute Code(s): F31.30 - Bipolar disorder, current episode depressed, mild or moderate severity, unspecified (2) PTSD (post-traumatic stress disorder): Status: Acute Code(s): F43.10 - Post-traumatic stress disorder, unspecified Plan Patient is a 49 years old bilingual speaking male with history of unspecified bipolar d/o and PTSD who self presented reported SI with a plan to overdose. Increased anxiety and depression which has impacting his ability to function and attended to ADLs for the past weeks. He was here admitted to back in May 31 with the same presentation. Formulation/clinical reasoning: Increased depression, anxiety, and SI with plan overdose on medication the past couple weeks after discharge from the hospital. History of numerous inpatient level of care admission, history of wants suicide attempt when he was [age] years old via overdose on medications. History of bipolar, PTSD. Even the above information, patient will be benefit in restrictive environment for medication judgment, provide therapeutic environment to keep him safe and learn coping skills, and refer patient back to outpatient psychiatry services upon discharge. Plan: Patient on 15 minute checks for safety. Admitted to . [facility]. Work with treatment team to do collateral. He good like to step-down to [facility] upon discharge for aftercare. He opens for ECT treatment. VPA level for 07/12 and labs works. BUN slightly elevated. 07/11/25: He can be a good candidate for ECT treatment, history of ECT treatment about 15 years ago Taper down on Latuda per patient requests. He also agreed to take medication at bedtime instead 1700 to see if actually help with not sleeping during the day. Latuda from 100 mg down to 80 mg scheduled at bedtime, even with food. Add lithium on as a second mood stabilizer: [place] ER 300 at bedtime. History of taking this lower sex drive as side effects, he is aware and wanted to back on. Continue with Depakote extended release a 1000 at bedtime. He used to take 1250 mg. We will confirm and increase if necessary. Level prior to discharge was sub therapeutic. Patient aware to inform his outpatient psychiatrist, but dose not increased. Rexulti 1 mg daily in the morning for mood. Continue with prazosin, Remeron and trazodone. Reports vivid dream from trazodone. Add melatonin 9 mg at bedtime as needed for insomnia. 07/12: Keeping to self. laying in bed most of shift. Patient reports feeling depressed; pt stated, I don't think my medications are right. I want to think about maybe getting ECT again . denies SI/HI/VH/AH .Continue current tx plan. 07/13/2025: Order lithium level after the weekend. Increase prazosin 4 mg 07/14: increase prazosin to 5mg 07/15: Patient continues to report feeling depressed; he reports not sleeping well at night, despite nursing reporting he slept 8 hours through the night with PRN medications. Pt declined Latuda yesterday; pt stated, I don't want to keep taking the Latuda ; dose decreased to 60mg PO bedtime. [place] level 0.22 today; [place] dose increased to 600mg PO bedtime. Patient reports he is still thinking about ECT ; awaiting consult from Dr. Ocampo. Patient denies SI/HI/VH/AH. 07/16: Patient continues to report feeling depressed; continues to report not sleeping well d/t nightmares. Discussed increasing Prazosin, which pt is agreeable. He reports high levels of anxiety d/t ruminating on medications. per nursing, slept 8 hours last night. Prazosin increased to 6mg PO bedtime. Rexulti increased to 2mg PO daily. denies SI/HI/VH/AH. 07/17: Laying in bed. Encouraged to attend groups. Patient continues to report feeling depressed; continues to report not sleeping well despite nursing reporting pt slept 7 hours last night. Continues ruminating on medications. denies SI/HI/VH/AH. Continue current tx plan. 07/18: Isolating to room. Patient continues to report feeling depressed; pt stated, I still feel the same. I'm still depressed. I don't do well with being patient until the medications work . Slept 8 hours last night, pt reports he did not have nightmares. Continues ruminating on medications. denies SI/HI/VH/AH. Continue current tx plan. 07/19: Patient continues to report feeling depressed; pt stated, I'm still depressed. I'm depressed about my living situation, my daughter not talking to me for 2 years and my medications . Not attending groups. Continues ruminating on medications. denies SI/HI/VH/AH. Remeron increased to 45mg PO bedtime. [place] ER increased to 900mg PO bedtime. Ammonia level 74 on 07/18/25; ordered Lactulose 40gm PO daily. Patient aware of medication changes. 07/20: Patient continues to report feeling depressed; Continues ruminating on medications. Pacing unit hallway at times. Showered. denies SI/HI/VH/AH. Continue current tx plan. 07/21:Patient continues to report feeling depressed; perseveration on medications. Pt declined [place] and prazosin last night. Patient stated, I don't want to take prazosin because its not helping with my nightmares and [place] is causing my ammonia to go up ; pt was educated regarding medications. Nursing provided educational handout material regarding [place]. DC Prazosin. Decrease Latuda to 40mg PO bedtime. Valproic acid and ammonia level to be drawn tomorrow. denies SI/HI/VH/AH. Continue current tx plan. 07/22: Patient continues to report feeling depressed; perseveration on medications. Pt declined Depakote last night. Patient stated, I don't want to take Depakote because it's causing my ammonia to go up. I want a lesser dose or to come off of it; pt was reeducated regarding medications. Nursing also tried to reeducate. denies SI/HI/VH/AH. He reports not sleeping well despite nursing reporting pt slept for 8 hours. Decrease Depakote to 750mg PO bedtime. Valproic acid <12.5, ammonia level 41 on 07/22/25. DC Rexulti. Start: Anafranil 25mg PO bedtime for OCD treatment; risks/benefits reviewed. pt agreed to trial. 07/23: Laying in bed most of morning. Patient continues to report feeling depressed; perseveration on medications, pt reports he is feeling hopeful about medication changes. medication compliant. denies any side effects from medication changes. denies SI/HI/VH/AH. He continues to report not sleeping well despite nursing reporting pt slept for 8 hours. Continue tx plan. 07/24: Patient reports feeling a little better today ; pt stated, I'm getting out of bed more and talking to people . Continues to report feeling depressed; perseveration on medications; Anafranil increased to 50mg PO bedtime. 07/25: More active during the morning. Patient continues to report feeling a little better ; pt stated, I feel okay today. I feel the medication is helping. My depression is a little less . denies SI/HI/VH/AH. Continue current tx plan. 07/26: Patient reports feeling not bad today; pt reports he will try to continue being more active . Continue to report feeling depressed but states he feels his mood is improving. [place] level 0.58 on 07/26/25. [place] ER increased to 1,200mg PO bedtime; pt aware. Per nursing, slept 8 hours last night. denies SI/HI/VH/AH. 07/27/2025: No changes to current regimen 07/28/2025: Start amlodipine, otherwise no changes Reason for continued inpatient stay Substantial Risk for: rapid decompensation Time Spent With Patient Time: Total time managing care of this patient today ____ minutes.
[2025-07-28 15:05] VITALS: BP 147/86; PULSE 85
[2025-07-28 20:00] VITALS: BP 115/60; PULSE 61; RESP 18; TEMP 36.4; O2SAT 96
[2025-07-28 20:20] VITALS: BP 115/60; PULSE 61
[2025-07-29 07:44] VITALS: BP 127/66; PULSE 60; RESP 16; TEMP 36.9; O2SAT 95
[2025-07-29 07:52] LABS: Lithium 0.97 mmol/L (0.60-1.20)
[2025-07-29 08:01] LABS: Alanine Aminotransferase 47 U/L (0-40); Albumin Level 3.9 g/dL (3.5-5.0); Alkaline Phosphatase 57 U/L (39-117); Anion Gap 10 (12-20); Aspartate Amino Transferase 36 U/L (5-37); Blood Urea Nitrogen 22 mg/dL (9-16); Calcium 9.3 mg/dL (8.4-10.2); Carbon Dioxide 31 mmol/L (22-29); Chloride 105 mmol/L (96-108); Creatinine Clr Calc Pharmacy 106.6; Estimated Glomerular Filt Rate > 60; Potassium 4.6 mmol/L (3.3-5.1); Sodium 141 mmol/L (135-145); Total Protein 6.8 g/dL (6.5-8.0)
[2025-07-29 08:31] VITALS: BP 127/66; PULSE 60
--- NOTE | 2025-07-29 14:45 | P.PNPSI_ITS ---
Subjective Subjective Date of Service: 07/29/25 Reason For Visit: PTSD; Bipolar disorder Subjective Notes: Conditional Voluntary Healthcare Proxy: No Guardianship: No Medical Problems Affecting Mental Status: No Interim History: Medical record and nursing notes reviewed; case discussed during rounds with team/nursing staff, and met with patient for supportive therapy/psychoeducation, as well as medication management. Slept well, ate well, visible, social appropriate, compliant with medications. Denies side effect. Do not reports nightmare. Discussed with patient regarding medication was sent home with. Patient requests to be sent home with a [facility] p.r[facility].. Reviewed lab results, lithium level with patient. Patient will move at the got home from the sober house, to stay with a friend as he thinks the current environment is not helpful. Reports mild depression anxiety was is much improving. Denies safety concerns. He feels safe leaving tomorrow. Medication Compliance: Yes Side effects from medications: No Attending Groups: Intermittent Review of Systems Acute medical concerns: No Medical Review of Systems: unchanged Review of Systems Review of Systems Constitutional: Denies fatigue and Denies fever(s) Cardiovascular: Denies chest pain and Denies dyspnea Respiratory: Denies dyspnea Gastrointestinal: Denies abdominal pain Psychiatric: denies suicidal ideation Endocrine: Denies fatigue Yes all other systems are reviewed and are negative Mental Status Exam Mental Status Exam Narrative: Pt is alert and oriented; behavior is cooperative and calm; dressed in casual attire; mood is described as Good ; eye contact appropriate; Speech is normal rate, volume and not pressured; thought process is organized; Thought content is on tx; denies SI/HI/AH/VH. Insight and judgment are good. Diagnostics Vital Signs (24Hr): Vital Signs - 24 hr 07/28/25 15:05 07/28/25 20:00 07/28/25 20:20 Temperature 97.6 F Pulse Rate 85 61 61 Respiratory Rate 18 Blood Pressure 147/86 H 115/60 115/60 Pulse Oximetry 96 Oxygen Delivery Method Room Air 07/29/25 07:44 07/29/25 08:31 07/29/25 08:31 Temperature 98.4 F Pulse Rate 60 60 Respiratory Rate 16 Blood Pressure 127/66 127/66 127/66 Pulse Oximetry 95 Oxygen Delivery Method Room Air BMI result Body Mass Index 34.2 Labs 07/10/25 16:53 07/29/25 07:35 Labs: Laboratory Results - last 48 hr 07/29/25 07:35 Sodium 141 Potassium 4.6 Chloride 105 Carbon Dioxide 31 H Anion Gap 10 L BUN 22 H Creatinine 1.04 Estim Creat Clear Calc 106.6 Estimated GFR > 60 Random Glucose 106 Calcium 9.3 Total Bilirubin 0.4 AST 36 ALT 47 H Alkaline Phosphatase 57 Total Protein 6.8 Albumin 3.9 Sundown 0.97 Medications Medications Current Medications Acetaminophen (Acetaminophen 325 Mg Tablet) 650 mg PO Q6H PRN PRN Reason: Headache/Pain, Scale 1-10 Al Hydroxide/Mg Hydroxide (Magnesium Hydrox/Alum Hydrox 30 Ml Oral.Susp) 30 ml PO Q6H PRN PRN Reason: Heartburn/Nausea Amlodipine Besylate (Amlodipine Besylate 5 Mg Tablet) 5 mg PO DAILY YOBANI; Protocol Last Admin: 07/29/25 08:31 Dose: 5 mg Clomipramine HCl (Clomipramine Hcl 25 Mg Capsule) 50 mg PO BEDTIME YOBANI Last Admin: 07/28/25 20:20 Dose: 50 mg Divalproex Sodium (Divalproex Sodium 250 Mg Tablet.Dr) 750 mg PO BEDTIME YOBANI Last Admin: 07/28/25 20:19 Dose: 750 mg Sundown Carbonate (Sundown Carbonate Er 300 Mg Tablet.Er) 1,200 mg PO BEDTIME YOBANI Last Admin: 07/28/25 20:19 Dose: 1,200 mg Lorazepam (Lorazepam 1 Mg Tablet) 1 mg PO DAILY PRN PRN Reason: severe anxiety Last Admin: 07/29/25 11:24 Dose: 1 mg Lurasidone HCl (Lurasidone Hcl 40 Mg Tablet) 40 mg PO BEDTIME YOBANI Last Admin: 07/28/25 20:25 Dose: 40 mg Magnesium Hydroxide (Milk Of Magnesia 30 Ml Oral.Susp) 30 ml PO DAILY PRN PRN Reason: Constipation Melatonin (Melatonin 3 Mg Tablet) 9 mg PO BEDTIME PRN PRN Reason: Insomnia Last Admin: 07/28/25 20:19 Dose: 9 mg Mirtazapine (Mirtazapine 15 Mg Tablet) 45 mg PO BEDTIME YOBANI Last Admin: 07/28/25 20:19 Dose: 45 mg Naproxen (Naproxen 500 Mg Tablet) 500 mg PO Q12H PRN PRN Reason: Knee and shoulder pain Last Admin: 07/28/25 15:04 Dose: 500 mg Olanzapine (Olanzapine 5 Mg Tablet) 5 mg PO Q4H PRN PRN Reason: anxiety/agitation Last Admin: 07/28/25 17:53 Dose: 5 mg Propranolol HCl (Propranolol Hcl 20 Mg Tablet) 20 mg PO TID YOBANI; Protocol Last Admin: 07/29/25 08:31 Dose: 20 mg Trazodone HCl (Trazodone Hcl 100 Mg Tablet) 200 mg PO BEDTIME YOBANI Last Admin: 07/28/25 20:19 Dose: 200 mg Trazodone HCl (Trazodone Hcl 50 Mg Tablet) 50 mg PO BEDTIME MRX1 PRN PRN Reason: Insomnia Last Admin: 07/28/25 20:19 Dose: 50 mg Allergies Allergies Allergy/AdvReac Type Severity Reaction Status Date / Time duloxetine (From CYMBALTA) Allergy Unknown RASH Verified 07/10/25 16:23 shrimp Allergy Anaphylaxis Verified 07/10/25 16:23 Assessment & Plan Assessment & Plan (1) Bipolar disorder, now depressed: Qualifiers: Current episode severity: unspecified Qualified Code(s): F31.30 - Bipolar disorder, current episode depressed, mild or moderate severity, unspecified Status: Acute Code(s): F31.30 - Bipolar disorder, current episode depressed, mild or moderate severity, unspecified (2) PTSD (post-traumatic stress disorder): Status: Acute Code(s): F43.10 - Post-traumatic stress disorder, unspecified Plan Patient is a 49 years old bilingual speaking male with history of unspecified bipolar d/o and PTSD who self presented reported SI with a plan to overdose. Increased anxiety and depression which has impacting his ability to function and attended to ADLs for the past weeks. He was here admitted to back in May 31 with the same presentation. Formulation/clinical reasoning: Increased depression, anxiety, and SI with plan overdose on medication the past couple weeks after discharge from the hospital. History of numerous inpatient level of care admission, history of wants suicide attempt when he was [age] years old via overdose on medications. History of bipolar, PTSD. Even the above information, patient will be benefit in restrictive environment for medication judgment, provide therapeutic environment to keep him safe and learn coping skills, and refer patient back to outpatient psychiatry services upon discharge. Plan: Patient on 15 minute checks for safety. Admitted to . [facility]. Work with treatment team to do collateral. He good like to step-down to [facility] upon discharge for aftercare. He opens for ECT treatment. VPA level for 07/12 and labs works. BUN slightly elevated. 07/11/25: He can be a good candidate for ECT treatment, history of ECT treatment about 15 years ago Taper down on Latuda per patient requests. He also agreed to take medication at bedtime instead 1700 to see if actually help with not sleeping during the day. Latuda from 100 mg down to 80 mg scheduled at bedtime, even with food. Add lithium on as a second mood stabilizer: Sundown ER 300 at bedtime. History of taking this lower sex drive as side effects, he is aware and wanted to back on. Continue with Depakote extended release a 1000 at bedtime. He used to take 1250 mg. We will confirm and increase if necessary. Level prior to discharge was sub therapeutic. Patient aware to inform his outpatient psychiatrist, but dose not increased. Rexulti 1 mg daily in the morning for mood. Continue with prazosin, Remeron and trazodone. Reports vivid dream from trazodone. Add melatonin 9 mg at bedtime as needed for insomnia. 07/12: Keeping to self. laying in bed most of shift. Patient reports feeling depressed; pt stated, I don't think my medications are right. I want to think about maybe getting ECT again . denies SI/HI/VH/AH .Continue current tx plan. 07/13/2025: Order lithium level after the weekend. Increase prazosin 4 mg 07/14: increase prazosin to 5mg 07/15: Patient continues to report feeling depressed; he reports not sleeping well at night, despite nursing reporting he slept 8 hours through the night with PRN medications. Pt declined Latuda yesterday; pt stated, I don't want to keep taking the Latuda ; dose decreased to 60mg PO bedtime. Sundown level 0.22 today; Sundown dose increased to 600mg PO bedtime. Patient reports he is still thinking about ECT ; awaiting consult from Dr. Ocampo. Patient denies SI/HI/VH/AH. 07/16: Patient continues to report feeling depressed; continues to report not sleeping well d/t nightmares. Discussed increasing Prazosin, which pt is agreeable. He reports high levels of anxiety d/t ruminating on medications. per nursing, slept 8 hours last night. Prazosin increased to 6mg PO bedtime. Rexulti increased to 2mg PO daily. denies SI/HI/VH/AH. 07/17: Laying in bed. Encouraged to attend groups. Patient continues to report feeling depressed; continues to report not sleeping well despite nursing reporting pt slept 7 hours last night. Continues ruminating on medications. denies SI/HI/VH/AH. Continue current tx plan. 07/18: Isolating to room. Patient continues to report feeling depressed; pt stated, I still feel the same. I'm still depressed. I don't do well with being patient until the medications work . Slept 8 hours last night, pt reports he did not have nightmares. Continues ruminating on medications. denies SI/HI/VH/AH. Continue current tx plan. 07/19: Patient continues to report feeling depressed; pt stated, I'm still depressed. I'm depressed about my living situation, my daughter not talking to me for 2 years and my medications . Not attending groups. Continues ruminating on medications. denies SI/HI/VH/AH. Remeron increased to 45mg PO bedtime. Sundown ER increased to 900mg PO bedtime. Ammonia level 74 on 07/18/25; ordered Lactulose 40gm PO daily. Patient aware of medication changes. 07/20: Patient continues to report feeling depressed; Continues ruminating on medications. Pacing unit hallway at times. Showered. denies SI/HI/VH/AH. Continue current tx plan. 07/21:Patient continues to report feeling depressed; perseveration on medications. Pt declined Sundown and prazosin last night. Patient stated, I don't want to take prazosin because its not helping with my nightmares and Sundown is causing my ammonia to go up ; pt was educated regarding medications. Nursing provided educational handout material regarding Sundown. DC Prazosin. Decrease Latuda to 40mg PO bedtime. Valproic acid and ammonia level to be drawn tomorrow. denies SI/HI/VH/AH. Continue current tx plan. 07/22: Patient continues to report feeling depressed; perseveration on medications. Pt declined Depakote last night. Patient stated, I don't want to take Depakote because it's causing my ammonia to go up. I want a lesser dose or to come off of it; pt was reeducated regarding medications. Nursing also tried to reeducate. denies SI/HI/VH/AH. He reports not sleeping well despite nursing reporting pt slept for 8 hours. Decrease Depakote to 750mg PO bedtime. Valproic acid <12.5, ammonia level 41 on 07/22/25. DC Rachellei. Start: Anafranil 25mg PO bedtime for OCD treatment; risks/benefits reviewed. pt agreed to trial. 07/23: Laying in bed most of morning. Patient continues to report feeling depressed; perseveration on medications, pt reports he is feeling hopeful about medication changes. medication compliant. denies any side effects from medication changes. denies SI/HI/VH/AH. He continues to report not sleeping well despite nursing reporting pt slept for 8 hours. Continue tx plan. 07/24: Patient reports feeling a little better today ; pt stated, I'm getting out of bed more and talking to people . Continues to report feeling depressed; perseveration on medications; Anafranil increased to 50mg PO bedtime. 07/25: More active during the morning. Patient continues to report feeling a little better ; pt stated, I feel okay today. I feel the medication is helping. My depression is a little less . denies SI/HI/VH/AH. Continue current tx plan. 07/26: Patient reports feeling not bad today; pt reports he will try to continue being more active . Continue to report feeling depressed but states he feels his mood is improving. Sundown level 0.58 on 07/26/25. Sundown ER increased to 1,200mg PO bedtime; pt aware. Per nursing, slept 8 hours last night. denies SI/HI/VH/AH. 07/27/2025: No changes to current regimen 07/28/2025: Start amlodipine, otherwise no changes 07/29/25: Slept well, ate well, visible, social appropriate, compliant with medications. Denies side effect. Do not reports nightmare. Discussed with patient regarding medication was sent home with. Patient requests to be sent home with a [facility] p.r.n.. Reviewed lab results, lithium level with patient. Patient will move at the got home from the sober house, to stay with a friend as he thinks the current environment is not helpful. Reports mild depression anxiety was is much improving. Denies safety concerns. He feels safe leaving tomorrow. Working on sending medication to prefer pharmacy. Patient educated on: diagnosis, medication risk/benefits and therapeutic strategies Informed Consent: understands Reason for continued inpatient stay Substantial Risk for: med/psych decompensation Time Spent With Patient Time: Total time managing care of this patient today ____ minutes.
[2025-07-29 15:34] VITALS: BP 146/92; PULSE 95
[2025-07-29 19:51] VITALS: BP 160/92; PULSE 77; RESP 16; TEMP 36.4; O2SAT 97
[2025-07-30 07:48] VITALS: BP 151/89; PULSE 69; RESP 20; TEMP 36.7; O2SAT 97
--- NOTE | 2025-07-30 09:19 | P.DS_ITS ---
DS: Providers Provider Date of Service: 07/30/25 Date of admission: 07/11/25 15:06 Date of discharge: 07/30/25 Primary care physician: Suleman Pritchard MD Attending physician on admission: Sue Finch Consults: 07/15/25 11:51 Consult to Psychiatry Routine Consulting Provider: [facility] [place] [facility] Reason for consultation: ECT- Dr. Ocampo Has provider been notified: Yes Discharging clinician: Syeda Bueno DS: Diagnosis Discharge Diagnosis (1) Bipolar disorder, now depressed: Status: Acute (2) PTSD (post-traumatic stress disorder): Status: Acute DS: Medications Discharge Medications Home Medications: Previous Rx's ?Medication ?Instructions ?Recorded amlodipine 5 mg tablet 5 mg PO DAILY HTN #30 tabs 0 07/29/25 clomipramine 25 mg capsule 50 mg (2 x 25 mg) PO BEDTIM E OCD 07/29/25 #60 caps divalproex 250 mg tablet,delayed 750 mg (3 x 250 mg) P O BEDTIME 07/29/25 release Mood #90 tabs hydroxyzine pamoate 50 mg capsule 50 mg PO Q8H PRN Anx iety #60 caps 07/29/25 lithium carbonate 300 mg 1,200 mg (4 x 300 mg) PO BED TIME 07/29/25 tablet,extended release Mood #120 tabs lorazepam 1 mg tablet 1 mg PO DAILY PRN Severe Anx iety 07/29/25 #14 tabs lurasidone 40 mg tablet (Latuda) 40 mg PO BEDTIME Mood /psychosis 07/29/25 #30 tabs melatonin 3 mg tablet 9 mg (3 x 3 mg) PO BEDTIME P RN 07/29/25 Insomnia if trazodone not effect #90 tabs mirtazapine 15 mg tablet 45 mg (3 x 15 mg) PO BEDTIME 07/29/25 Depression/insomnia 30 days #90 tabs naproxen 500 mg tablet 500 mg PO Q12H PRN Knee and 07/29/25 shoulder pain #45 tabs olanzapine 5 mg tablet 5 mg PO BID PRN severe 07/29 anxiety/agitation #30 tabs propranolol 20 mg tablet 20 mg PO TID Anxiety #90 tab s 07/29/25 trazodone 100 mg tablet 200 mg (2 x 100 mg) PO BEDTI ME PRN 07/29/25 Sleep #60 tabs trazodone 50 mg tablet 50 mg PO BEDTIME PRN Insomni a #30 07/29/25 tabs Mental Status Exam Mental Status Exam Narrative: Patient presents well-groomed, casually dressed. Affect is euthymic with constricted. Speech is clear and coherent. Thought process is linear and logical. Thought content is appropriate and relevant. Patient denies suicidal or homicidal ideation intent or plan. No overt psychotic symptoms elicited. Insight is good. Judgment is good. Data Data Completed and Pending Completed studies during hospitalization [Text1]: 07/26/25 07/29/25 12:23 07:35 Sodium 139 141 Potassium 4.8 4.6 Chloride 103 105 Carbon Dioxide 29 31 H Anion Gap 12 10 L BUN 22 H 22 H Creatinine 1.15 1.04 Estim Creat Clear Calc 96.4 106.6 Estimated GFR > 60 > 60 Random Glucose 106 Calcium 9.3 Total Bilirubin 0.4 AST 36 ALT 47 H Alkaline Phosphatase 57 Total Protein 6.8 Albumin 3.9 [place] 0.58 L 0.97 DS: Summary Hospital Course Hospital Course: Per admitting provider note: Patient is a 49 years old bilingual speaking male with history of unspecified bipolar d/o and PTSD who self presented reported SI with a plan to overdose. Increased anxiety and depression which has impacting his ability to function and attended to ADLs for the past weeks. He was here admitted to back in May 31 with the same presentation. Formulation/clinical reasoning: Increased depression, anxiety, and SI with plan overdose on medication the past couple weeks after discharge from the hospital. History of numerous inpatient level of care admission, history of wants suicide attempt when he was 13-14 years old via overdose on medications. History of bipolar, PTSD. Even the above information, patient will be benefit in restrictive environment for medication judgment, provide therapeutic environment to keep him safe and learn coping skills, and refer patient back to outpatient psychiatry services upon discharge. Hospital course: 07/11/25: He can be a good candidate for ECT treatment, history of ECT treatment about 15 years ago Taper down on Latuda per patient requests. He also agreed to take medication at bedtime instead 1700 to see if actually help with not sleeping during the day. Latuda from 100 mg down to 80 mg scheduled at bedtime, even with food. Add lithium on as a second mood stabilizer: [place] ER 300 at bedtime. History of taking this lower sex drive as side effects, he is aware and wanted to back on. Continue with Depakote extended release a 1000 at bedtime. He used to take 1250 mg. We will confirm and increase if necessary. Level prior to discharge was sub therapeutic. Patient aware to inform his outpatient psychiatrist, but dose not increased. Rexulti 1 mg daily in the morning for mood. Continue with prazosin, Remeron and trazodone. Reports vivid dream from trazodone. Add melatonin 9 mg at bedtime as needed for insomnia. 07/12: Keeping to self. laying in bed most of shift. Patient reports feeling depressed; pt stated, I don't think my medications are right. I want to think about maybe getting ECT again . denies SI/HI/VH/AH .Continue current tx plan. 07/13/2025: Order lithium level after the weekend. Increase prazosin 4 mg 07/14: increase prazosin to 5mg 07/15: Patient continues to report feeling depressed; he reports not sleeping well at night, despite nursing reporting he slept 8 hours through the night with PRN medications. Pt declined Latuda yesterday; pt stated, I don't want to keep taking the Latuda ; dose decreased to 60mg PO bedtime. Lock[place] level 0.22 today; [place] dose increased to 600mg PO bedtime. Patient reports he is still thinking about ECT ; awaiting consult from Dr. Ocampo. Patient denies SI/HI/VH/AH. 07/16: Patient continues to report feeling depressed; continues to report not sleeping well d/t nightmares. Discussed increasing Prazosin, which pt is agreeable. He reports high levels of anxiety d/t ruminating on medications. per nursing, slept 8 hours last night. Prazosin increased to 6mg PO bedtime. Rexulti increased to 2mg PO daily. denies SI/HI/VH/AH. 07/17: Laying in bed. Encouraged to attend groups. Patient continues to report feeling depressed; continues to report not sleeping well despite nursing reporting pt slept 7 hours last night. Continues ruminating on medications. denies SI/HI/VH/AH. Continue current tx plan. 07/18: Isolating to room. Patient continues to report feeling depressed; pt stated, I still feel the same. I'm still depressed. I don't do well with being patient until the medications work . Slept 8 hours last night, pt reports he did not have nightmares. Continues ruminating on medications. denies SI/HI/VH/AH. Continue current tx plan. 07/19: Patient continues to report feeling depressed; pt stated, I'm still depressed. I'm depressed about my living situation, my daughter not talking to me for 2 years and my medications . Not attending groups. Continues ruminating on medications. denies SI/HI/VH/AH. Remeron increased to 45mg PO bedtime. Lock[place] ER increased to 900mg PO bedtime. Ammonia level 74 on 07/18/25; ordered Lactulose 40gm PO daily. Patient aware of medication changes. 07/20: Patient continues to report feeling depressed; Continues ruminating on medications. Pacing unit hallway at times. Showered. denies SI/HI/VH/AH. Continue current tx plan. 07/21:Patient continues to report feeling depressed; perseveration on medications. Pt declined [place] and prazosin last night. Patient stated, I don't want to take prazosin because its not helping with my nightmares and Lock[place] is causing my ammonia to go up ; pt was educated regarding medications. Nursing provided educational handout material regarding [place]. DC Prazosin. Decrease Latuda to 40mg PO bedtime. Valproic acid and ammonia level to be drawn tomorrow. denies SI/HI/VH/AH. Continue current tx plan. 07/22: Patient continues to report feeling depressed; perseveration on medications. Pt declined Depakote last night. Patient stated, I don't want to take Depakote because it's causing my ammonia to go up. I want a lesser dose or to come off of it; pt was reeducated regarding medications. Nursing also tried to reeducate. denies SI/HI/VH/AH. He reports not sleeping well despite nursing reporting pt slept for 8 hours. Decrease Depakote to 750mg PO bedtime. Valproic acid <12.5, ammonia level 41 on 07/22/25. DC Rexulti. Start: Anafranil 25mg PO bedtime for OCD treatment; risks/benefits reviewed. pt agreed to trial. 07/23: Laying in bed most of morning. Patient continues to report feeling depressed; perseveration on medications, pt reports he is feeling hopeful about medication changes. medication compliant. denies any side effects from medication changes. denies SI/HI/VH/AH. He continues to report not sleeping well despite nursing reporting pt slept for 8 hours. Continue tx plan. 07/24: Patient reports feeling a little better today ; pt stated, I'm getting out of bed more and talking to people . Continues to report feeling depressed; perseveration on medications; Anafranil increased to 50mg PO bedtime. 07/25: More active during the morning. Patient continues to report feeling a little better ; pt stated, I feel okay today. I feel the medication is helping. My depression is a little less . denies SI/HI/VH/AH. Continue current tx plan. 07/26: Patient reports feeling not bad today; pt reports he will try to continue being more active . Continue to report feeling depressed but states he feels his mood is improving. Lockport level 0.58 on 07/26/25. Lock[place] ER increased to 1,200mg PO bedtime; pt aware. Per nursing, slept 8 hours last night. denies SI/HI/VH/AH. 07/27/2025: No changes to current regimen 07/28/2025: Start amlodipine, otherwise no changes 07/29/25: Slept well, ate well, visible, social appropriate, compliant with medications. Denies side effect. Do not reports nightmare. Discussed with patient regarding medication was sent home with. Patient requests to be sent home with a [employer] p.r.n.. Reviewed lab results, lithium level with patient. Patient will move at the [facility] home from the sober house, to stay with a friend as he thinks the current environment is not helpful. Reports mild depression anxiety was is much improving. Denies safety concerns. He feels safe leaving tomorrow. Working on sending medication to prefer pharmacy. 07/30/25: Patient denies any safety concerns prior to discharge, he will get to his mom home, and then take the bus to get to his place. Reported that the friend he supposed to stay with we will not picking him up as he was kicked out by his /girlfriend. Therefore patient will not stay with him. Time spent discussing smoking cessation with patient: 3 to 10 minutes Status at Discharge Cognitive/behavioral status at discharge: CONDITION ON DISCHARGE: CURRENT STATUS IT RELATES TO ADMISSION CRITERIA: Stable, improved. Improvements in depression, anxiety, and suicidal ideation. Improvements in sleep, energy, and appetite. and no hallucination or paranoia/delusional thought. Functional status at discharge: independent ambulation Overall status at discharge: patient is back to baseline Time Spent with Patient Time attestation: Total time managing care of this patient today ____ minutes. Time spent: Greater than 30 minutes Discharge Plan Discharge Anticipated Discharge Date/Time: 07/30/25 09:17 Patient Disposition: Home, Self-Care Discharge Diagnosis: PTSD, Bipolar with depressive mood, HTN Referrals: Therapy & Psychiatry [Other] - 1 Week Referral Note: *Please reach out to [facility] in order to obtain the follow up appointment information with your therapist and your psychiatric prescriber. Anya Keith ([employer] Mechanic) [Other] - 1 Week Referral Note: *Anya Keith is the assigned healthcare financial analyst for your insurance company. She will reach out to you upon discharge. Suleman Pritchard MD [Primary Care Provider, Internal Medicine] - 1 Week Referral Note: 07-19-25 Please contact your primary care provider within 7-10 days of discharge to schedule a follow up appt. No release on file. Discharge Medications: New amlodipine 5 mg Tablet 5 mg PO DAILY Qty: 30 0RF Protocol: Hold for SBP< HOLD for SBP < : 90 clomipramine 25 mg Capsule 50 mg PO BEDTIME Qty: 60 0RF divalproex 250 mg Tablet,Delayed Release (Dr/Ec) 750 mg PO BEDTIME Qty: 90 0RF lithium carbonate 300 mg Tablet Extended Release 1,200 mg PO BEDTIME Qty: 120 0RF lurasidone [Latuda] 40 mg Tablet 40 mg PO BEDTIME Qty: 30 0RF olanzapine 5 mg Tablet 5 mg PO BID PRN (Reason: severe anxiety/agitation) Qty: 30 0RF trazodone 50 mg Tablet 50 mg PO BEDTIME PRN (Reason: Insomnia) Qty: 30 0RF melatonin 3 mg Tablet 9 mg PO BEDTIME PRN (Reason: Insomnia if trazodone not effect) Qty: 90 0RF Continued hydroxyzine pamoate 50 mg Capsule 50 mg PO Q8H PRN (Reason: Anxiety) Qty: 60 0RF trazodone 100 mg tablet 200 mg PO BEDTIME PRN (Reason: Sleep) Qty: 60 0RF lorazepam 1 mg Tablet 1 mg PO DAILY PRN (Reason: Severe Anxiety) Qty: 14 0RF naproxen 500 mg Tablet 500 mg PO Q12H PRN (Reason: Knee and shoulder pain) Qty: 45 0RF Changed mirtazapine 15 mg Tablet 45 mg PO BEDTIME 30 Days Qty: 90 0RF propranolol 20 mg Tablet 20 mg PO TID Qty: 90 0RF Discontinued prazosin 1 mg Capsule 2 mg PO BEDTIME Qty: 60 0RF Protocol: Hold for SBP< HOLD for SBP < : 90 divalproex 500 mg tablet,delayed release (DR/EC) 1,000 mg PO BEDTIME 30 Days Qty: 60 0RF lurasidone 20 mg tablet 100 mg PO DAILY@1700 Discharge Orders: Discharge Order (Routine); Ordered 07/30/25 Ordered By: Syeda Bueno Diet: Regular diet Activity on Discharge: As tolerated Stand Alone Forms: Patient Portal Discharge page, Community Support Print Language: Honduran Care Plan Goals: Maintain mood and safe behaviors Take medications as prescribed Continue to pursue sobriety Practice coping skills Continue with outpatient providers and reach out to them as needed Health Concerns: Mood stability and behaviors Sobriety Plan of Treatment: Follow up with your PCP, psychiatric provider and other outpatient providers regarding above concerns Take medications as prescribed Assessment: Assessment: Risk assessment at time of discharge: Patient was interviewed prior to discharge and found to be fully oriented and without any SI or HI. Patient has improved insight and judgment and wants to continue treatment. Patient is not in imminent risk of harm to self or others and has a safety plan that includes presenting to the closest ER or calling 911 if feeling unsafe. Patient has been observed closely by nursing and unit staff throughout admission; patient has not engaged in any behaviors that suggest dangerousness to self or others and has demonstrated appropriate behaviors and impulse control Discharge Date/Time: 07/30/25 10:10
== END 2025-07-30 10:10 | disposition home or self-care (01) | DRG 885 ==
LOC: HO.ED 16:57 → HO.PADLT16 07-11 18:22
PROVIDERS: Nurse Practitioner Psychiatric/Mental Health; Psychiatry & Neurology Psychiatry; Registered Nurse; Admitting Provider Clinical Nurse Specialist Psychiatric/Mental Health, Adult; Emergency Provider Emergency Medicine Emergency Medical Services; PCP Internal Medicine; Visit Provider Psychiatry & Neurology Psychiatry
DX: F31.30 Bipolar disorder, current episode depressed, mild or moderate severity, unspecified (principal); R45.851 Suicidal ideations; F43.10 Post-traumatic stress disorder, unspecified; Z62.820 Parent-biological child conflict; Z79.899 Other long term (current) drug therapy
CPT/HCPCS: 36415; 80051; 80053; 80061; 80076; 80164; 80178; 80307; 81003; 82140; 82565; 82607; 82746; 83036; 83735; 84439; 84443; 84520; 85025; 93005; 99285; S9485

== ENCOUNTER → 2025-07-11 07:38 | Outpatient (BNV) | payer OTHER, SELFPAY | PROVIDERS: Emergency Provider Emergency Medicine Emergency Medical Services; PCP Internal Medicine; Visit Provider Internal Medicine Cardiovascular Disease | DX: R00.1 Bradycardia, unspecified (principal) | CPT/HCPCS: 93010 ==

== ENCOUNTER → 2025-07-11 15:06 | Outpatient (BNV) | payer OTHER, SELFPAY | PROVIDERS: Admitting Provider Clinical Nurse Specialist Psychiatric/Mental Health, Adult; Emergency Provider Emergency Medicine Emergency Medical Services; PCP Internal Medicine; Visit Provider Nurse Practitioner Psychiatric/Mental Health | DX: F43.10 Post-traumatic stress disorder, unspecified (principal); F31.30 Bipolar disorder, current episode depressed, mild or moderate severity, unspecified; R45.851 Suicidal ideations | CPT/HCPCS: 90792 ==

== ENCOUNTER 2025-09-26 18:36 | Inpatient (IN) | payer OTHER, SELFPAY ==
--- NOTE | ~2025-09-26 | XR_ITS ---
EXAMINATION: XR ABDOMEN KUB CLINICAL INDICATION: constipation COMPARISON: Magazine Writer from CT performed 10/01/2025 TECHNIQUE: AP view of the abdomen. FINDINGS: There is mild superior lateral joint space narrowing in the hips. There are marginal osteophytes involving femoral heads and acetabulum. There is mild/moderate degenerative changes in the SI joints. There is moderate gaseous distention of the large bowel through the junction with descending and sigmoid colon. CT demonstrated a similar pattern of bowel dilation, however the current study shows increased distention. XR/XR KUB IMPRESSION: Gas and stool distends the colon. There may be small bowel distention as well. This is probably related to paralytic ileus or constipation, distal colonic obstruction is less likely. Electronically signed by: Emre Garcia MD 10/07/2025 11:46 AM SKIP
--- NOTE | ~2025-09-26 | CT_ITS ---
CLINICAL HISTORY: abd pain CT abdomen and pelvis without contrast Comparison: None provided Findings: The lung bases are clear. No ureteral stones. No hydronephrosis. Tiny nonobstructing left renal stones. Spleen, adrenal glands, pancreas, liver and gallbladder are unremarkable. No bowel obstruction, pneumoperitoneum, or pneumatosis. Fat containing umbilical hernia. Pelvic contents unremarkable. Normal appendix. No ascites. Multilevel degenerative change of the lumbar spine. Anterior spurring and fusion of the SI joints. IMPRESSION: No acute findings. This document has been electronically signed by: Anthony Trevino MD on 10/01/2025 01:23:11
--- NOTE | ~2025-09-26 | CT_ITS ---
EXAMINATION: CT HEAD WITHOUT CONTRAST CLINICAL INFORMATION: memory impairment COMPARISON: None available. TECHNIQUE: Contiguous axial imaging was performed from the skull base to vertex without intravenous administration of contrast. This CT examination was performed using dose optimization techniques as appropriate, variously including the following: *Automated exposure control *Adjustment of mA and/or kV according to patient size (this includes techniques or standardized protocols for targeted exams where dose is matched to indication/reason for exam; i.e. extremities or head) *Use of iterative reconstruction technique FINDINGS: Brain parenchyma: No shift of midline structures. No evidence of acute territorial infarct, parenchymal hemorrhage or mass effect. Ventricles/extra-axial spaces: Mild generalized prominence of the brain sulci and ventricles, mildly progressed from 2019; this is minimally more prominent than expected for patient's age. No hydrocephalus. No extra-axial fluid collection. Extracranial structures: Paranasal sinuses and mastoid air cells are clear. Right-sided mastoidectomy changes. CT/CT head/brain wo IV con IMPRESSION: 1. No acute intracranial pathology. 2. Mild brain volume loss, mildly progressed from 2019 and minimally more prominent than expected for patient's age. Electronically signed by: Shelia Barnes MD 10/03/2025 05:40 PM [facility]
[2025-09-26 18:42] VITALS: BP 117/62; PULSE 83; RESP 18; TEMP 36.6; O2SAT 100; BMI 32.5
--- NOTE | 2025-09-26 18:45 | ED_ITS ---
HPI - General Adult General Chief complaint: Psychiatric Symptoms Stated complaint: depression, anxiety, no sleep (1 1/2 wk w/o meds) Time Seen by Provider: 09/26/25 19:50 History of Present Illness ED Provider: madina HPI narrative: 50 M reports SI. Without his meds for 2 weeks which include but not limited to lithium Depakote. Says his psychiatrist ?dropped him ?. Vague HI. Patient does not report any acute medical complaints including no headache fever abdominal pain chest pain difficulty breathing Related Data Home Medications ?Medication ?Instructions ?Recorded ?Confirmed clomipramine 50 mg capsule 50 mg PO BEDTIME 09/27/25 1 11/27/24 lurasidone 40 mg tablet 40 mg PO BEDTIME depressive 09/27/25 09/27/25 disorder trazodone 50 mg tablet 50 mg PO BEDTIME PRN insomni a 09/27/25 09/27/25 Previous Rx's ?Medication ?Instructions ?Recorded amlodipine 5 mg tablet 5 mg PO DAILY HTN #30 tabs 0 07/29/25 divalproex 250 mg tablet,delayed 750 mg (3 x 250 mg) P O BEDTIME 07/29/25 release Mood #90 tabs hydroxyzine pamoate 50 mg capsule 50 mg PO Q8H PRN Anx iety #60 caps 07/29/25 lithium carbonate 300 mg 1,200 mg (4 x 300 mg) PO BED TIME 07/29/25 tablet,extended release Mood #120 tabs melatonin 3 mg tablet 9 mg (3 x 3 mg) PO BEDTIME P RN 07/29/25 Insomnia if trazodone not effect #90 tabs mirtazapine 15 mg tablet 45 mg (3 x 15 mg) PO BEDTIME 07/29/25 Depression/insomnia 30 days #90 tabs naproxen 500 mg tablet 500 mg PO Q12H PRN Knee and 07/29/25 shoulder pain #45 tabs propranolol 20 mg tablet 20 mg PO TID Anxiety #90 tab s 07/29/25 trazodone 100 mg tablet 200 mg (2 x 100 mg) PO BEDTI ME PRN 07/29/25 Sleep #60 tabs Allergies Allergy/AdvReac Type Severity Reaction Status Date / Time duloxetine (From CYMBALTA) Allergy Unknown RASH Verified 09/26/25 19:59 shrimp Allergy Anaphylaxis Verified 09/26/25 19:59 [facility] Past Medical History Medical History Suicidal ideation Post traumatic stress disorder Alcohol use disorder Cocaine use disorder Hypertension Anxiety Depression Social History Social History Household Members: None Household Members Other:: sober living Housing: Other Housing Other:: Sober House, [facility] Do you presently have visiting nurse or other home services: No Alcohol intake: never Comment: not a high fall risk patient Patient Tobacco Use Status: Current everyday Tobacco user Tobacco use type: Cigarette Cigarettes Per Day: 12 Years Smoked: 18 Smoked in Last 30 Days: Yes e-Cigarette/Vaping Use: Former Use Patient Interested in Nicotine Replacement: Yes (patch) Patient Given Instructions on How to Stop Smoking: No (declined) Second Hand Smoke Exposure: Yes (people smoking around him) Use of substances other than those prescribed or required for medical reasons: Yes Substance Use Type: Marijuana Currently Displaying Signs/Symptoms of Drug Intoxication Withdrawal: No Have you been hit, kicked, punched, or otherwise hurt by someone within the past year? If so, by whom?: No Do you feel safe in your current relationship?: No Current Relationship Is there a partner from a previous relationship who is making you feel unsafe now?: No Are you made to feel afraid or neglected: No Advance Directives: Yes Advance Directives Information Provided: No Advance Directives on File: Yes Advance Directives Date on File: 01/13/21 Do you have thoughts of harming others: None Do you have a plan to hurt others: No Plan Recently lost weight without trying: No Eating poorly because of decreased appetite: No Nutrition Risks: No Nutritional Risk Poor oral hygiene: No service: No Sexual orientation: Straight/Heterosexual Physical Exam ED Exam Exam: EXAM: Gen: Alert, awake, well appearing, well hydrated. Head: Atraumatic Eyes: Anicteric, Normal conjunctiva. ENT: Moist mucosa, no pallor. ? Neck: Supple. Skin: ?No observable rash or bruising on exposed or examined skin Respiratory: Breathing comfortably, No distress.Clear to auscultation bilaterally, symmetric chest expansion, No wheeze, rales, ronchi. Cardiovascular: Regular rate and rhythm. No murmurs or rub. Well perfused periphery, warm extremities. No edema. ? Abdominal: No focal tenderness. Soft, no objective distension. No palpable masses or obvious organomegaly. ?No guarding, no rebound tenderness or other peritoneal findings. : No flank tenderness. Neuro: Alert. Gross movement of all extremities intact. ?Cranial nerve testing not relevant to current presentation Psych: Calm. Cooperative. MSK: No grossly visible deformity. Vital signs: See flowsheet Vital Signs: Vital Signs - 24 hr 09/26/25 18:42 09/26/25 23:33 09/27/25 06:53 Temperature 97.8 F 98.4 F Pulse Rate 83 47 L 54 Respiratory Rate 18 17 Blood Pressure 117/62 129/61 143/67 H Pulse Oximetry 100 98 Oxygen Delivery Method Room Air Room Air 09/27/25 08:34 09/27/25 08:35 Temperature Pulse Rate Respiratory Rate Blood Pressure 146/79 H 146/79 H Pulse Oximetry Oxygen Delivery Method BMI result Body Mass Index 32.5 Course Course Course Narrative: Rapid medical examination performed in triage by Kayla Jennings PA-C: Patient is a 50 year old assigned male at presenting to the emergency department with depression and SI. Detailed physical exam and review of systems are deferred to the outreach clinician. machine plate stacker aware. Reevaluation(s) Reevaluation #1: 9:49 PM 09/26/2025 (Dr. Luis Fernando NowakAman): Physician observation for disposition Reevaluation #2: Time: 05:39 Date: 09/27/25 Provider: Carlos Acosta MD Patient in physician observation for psychiatric evaluation.? No acute events reported overnight. No current complaints. VS stable.? Evaluted by CARE team and meets [facility]PL[facility], bedsearch. Will continue to monitor. Time: 18:10 Date: 09/27/25 Provider: Carlos Acosta MD Physician observation ended at 14:42 hours. Patient to be admitted as inpatient to psychiatry. Medications Administered Generic Name Dose Route Start Last Admin Trade Name Freq PRN Reason Stop Dose Admin Amlodipine Besylate 5 mg 09/27/25 09:00 09/28/25 08:45 Amlodipine Besylate 5 Mg Tablet PO 5 mg DAILY YOBANI Administration Protocol Clomipramine HCl 50 mg 09/26/25 22:30 09/27/25 21:36 Clomipramine Hcl 25 Mg Capsule PO 50 mg BEDTIME YOBANI Administration Divalproex Sodium 750 mg 09/26/25 22:30 09/27/25 21:36 Divalproex Sodium 250 Mg Tablet.Dr PO 750 mg BEDTIME YOBANI Administration Hydroxyzine HCl 25 mg 09/27/25 14:22 09/28/25 12:03 Hydroxyzine Hcl 25 Mg Tablet PO 25 mg Q6H PRN Administration mild anxiety Thermal Carbonate 600 mg 09/27/25 21:00 09/27/25 21:39 Thermal Carbonate Er 300 Mg Tablet.Er PO 600 mg BEDTIME YOBANI Administration Melatonin 9 mg 09/27/25 21:00 09/27/25 21:37 Melatonin 3 Mg Tablet PO 9 mg BEDTIME YOBANI Administration Mirtazapine 15 mg 09/27/25 21:00 09/27/25 21:36 Mirtazapine 15 Mg Tablet PO 15 mg BEDTIME YOBANI Administration Propranolol HCl 20 mg 09/26/25 22:30 09/28/25 14:05 Propranolol Hcl 20 Mg Tablet PO 20 mg TID YOBANI Administration Protocol Discontinued Medications Generic Name Dose Route Start Last Admin Trade Name [facility] PR[facility] Reason Stop Dose Admin Hydroxyzine HCl 50 mg 09/26/25 22:21 09/27/25 11:33 Hydroxyzine Hcl 50 Mg Tablet PO 50 mg Q8H PRN Administration Anxiety Thermal Carbonate 1,200 mg 09/26/25 22:30 09/26/25 23:26 Thermal Carbonate Er 300 Mg Tablet.Er PO 1,200 mg BEDTIME YOBANI Administration Melatonin 9 mg 09/26/25 22:21 09/27/25 01:07 Melatonin 3 Mg Tablet PO 9 mg BEDTIME PRN Administration Insomnia if trazodone not effect Mirtazapine 45 mg 09/26/25 22:30 09/26/25 23:26 Mirtazapine 15 Mg Tablet PO 45 mg BEDTIME YOBANI Administration Olanzapine 5 mg 09/27/25 14:22 09/27/25 21:35 Olanzapine 5 Mg Tablet PO 5 mg TID PRN Administration agitation Trazodone HCl 200 mg 09/26/25 22:21 09/27/25 21:35 Trazodone Hcl 100 Mg Tablet PO 200 mg BEDTIME PRN Administration Sleep Medical Decision Making Medical Decision Making MDM Narrative: Medical Decision Makin-year-old male off meds several weeks. SI. Decompensated. No acute medical emergency identified. Diabetic no diabetic emergency active. Bed search Preliminary Favored Differential Diagnosis: Medication nonadherence, depression anxiety suicide out among additional considered etiologies Testing Interpreted Independently: ?See below for details Radiology or Lab testing Results Reviewed: ?See below for details Consults: ?See below for details Independent Historians/External Chart Reviews: ?See below for details Social Determinants of Health Impacting MDM/Planning: ?See below for details Lab Data MDM Lab Attestation statement: I reviewed the patient's lab results. 09/26/25 20:04 09/26/25 20:04 Labs: Lab Results 09/26/25 09/26/25 Range/Units 19:16 20:04 WBC 10.8 (4.8-10.8) X10*3/uL RBC 4.95 (4.60-5.80) X10*6/uL Hgb 14.9 (14.0-18.0) g/dl Hct 44.8 (42.0-52.0) % MCV 90.5 (80.0-98.0) fL MCH 30.1 (27.0-33.0) pg MCHC 33.3 (31.0-36.0) g/dl RDW 13.0 (11.0-16.0) % Plt Count 329 D (160-400) X10*3/uL MPV 9.3 L (9.4-12.4) fL Immature Gran % (Auto) 0.2 (0.0-0.4) % Neut % (Auto) 40.7 L (45-73) % Lymph % (Auto) 53.1 H (20-40) % Parke % (Auto) 3.6 (2-11) % Eos % (Auto) 1.9 (0-4) % Baso % (Auto) 0.5 (0-2) % Lymph # (Auto) 5.7 H (1.2-4.9) X10*3/uL Parke # (Auto) 0.4 (0.1-1.2) X10*3/uL Eos # (Auto) 0.2 (0.0-0.4) X10*3/uL Baso # (Auto) 0.1 (0.0-0.2) X10*3/uL Abs Immat Gran (auto) 0.02 (0.00-0.03) X10*3/uL Absolute Neuts (auto) 4.4 (2.0-8.3) x10*3/uL Absolute Nucleated RBC 0.000 (0.0-0.012) X10*3/uL Nucleated RBC % (auto) 0.0 (0.0-0.2) /100WBC Smear Tech's Comments VERIFIED Sodium 141 (135-145) mmol/L Potassium 4.5 (3.3-5.1) mmol/L Chloride 109 H (96-108) mmol/L Carbon Dioxide 21 L (22-29) mmol/L Anion Gap 16 (12-20) BUN 12 (9-16) mg/dL Creatinine 0.86 (0.5-1.4) mg/dL Estim Creat Clear Calc 127.1 Estimated GFR > 60 Random Glucose 99 (60-115) mg/dL Calcium 9.4 (8.4-10.2) mg/dL Total Bilirubin 0.4 (0.0-1.0) mg/dL AST 25 (5-37) U/L ALT 19 (0-40) U/L Alkaline Phosphatase 80 (39-117) U/L Total Protein 7.5 (6.5-8.0) g/dL Albumin 4.1 (3.5-5.0) g/dL Urine Color Yellow Urine Appearance Clear Urine pH 6.5 (5.0-9.0) Ur Specific [place] 1.010 (1.005-1.025) Urine Protein Negative (Neg-Trace) mg/dL Urine Glucose (UA) Negative (Negative) mg/dL Urine Ketones Negative (Negative) mg/dL Urine Blood Negative (Negative) Urine Nitrite Negative (Negative) Ur Leukocyte Esterase Negative (Negative) Salicylates < 5.0 L (15-30) mg/dL Urine Opiates Screen Not Detected (Not Detect) Ur Buprenorphine Scrn Not Detected (Not Detect) ng/mL Ur Oxycodone Screen Not Detected (Not Detect) ng/mL Urine Methadone Screen Not Detected (Not Detect) ng/mL Urine Fentanyl Screen Not Detected (Not Detect) Acetaminophen < 3 (<30) mcg/mL Ur Barbiturates Screen Not Detected (Not Detect) Ur Phencyclidine Scrn Not Detected (Not Detect) Ur Amphetamines Screen Not Detected (Not Detect) U Benzodiazepines Scrn Not Detected (Not Detect) Urine Cocaine Screen Not Detected (Not Detect) U Marijuana (THC) Screen POSITIVE H (Not Detect) Ethyl Alcohol < 10 mg/dL COVID-19 (RAF) Negative (Negative) COVID-19 Clin Com See Note Discharge Plan Discharge Clinical Impression: Suicidal ideation Patient Disposition: Admitted As Inpatient Interventions: Admission Worksheet (ED) Last Done: 09/27/25 15:12 Discharge Date/Time: 09/27/25 15:15
--- OUTSIDE RECORDS SUMMARY | 2025-09-26 18:56 | XMS_ITS | Encounter Summary ---
Author Organization [facility] Address [address] [place] [address] Care Team Providers Care Ply Bander Name Role Phone Anjali Uribe CLINICAL EDUCATOR Primary Care Provider [phone] Encounter Details Date Type Department Care Team (Late st Contact Info) Description 03/22/2025 Lab Requisition [facility] - Main Lab [address] [place] [phone] Sania Wing V, [employer]SI[employer] STUDIES PROGRAM CHAIR [address] [place] [address] Other senior living (current) drug therapy Social History Tobacco Use [...] TOTAL Routine 03/22/2025 7:00 AM EDT Other senior living (current) drug therapy documented in this encounter Results * Valproic acid level, total (03/22/2025 7:00 AM EDT) Valproic Acid, Total 78 50 - 100 mcg/mL LAB CHEMISTRY METHOD 03/22/2025 10:[address] [facility] Comment:Results verified by repeat testing Blood Venous blood specimen / Unknown Venipuncture / Unknown 03/22/2025 7:00 AM EDT 03/22/2025 8:48 AM EDT us Sania Wing V, ASIAN STUDIES PROGRAM CHAIR LAB BLOOD ORDERABLES Final Re sult [facility] [address] [place] [address], documented in this encounter Visit Diagnoses Diagnosis Other senior living (current) drug therapy documented in this encounter Care Teams Ply Bander Relationship Specialty Start Date End Date Anjali Uribe FNP [address] [place] [phone] PCP - General Family Medicine 03/23/25 documented as of this encounter
--- OUTSIDE RECORDS SUMMARY | 2025-09-26 18:56 | XMS_ITS | Clinical Summary ---
Author Organization [facility] Address [address] [place] [address] Phone Care Team Providers Care Hand Ornament Maker Name Role Phone Anjali Uribe [facility] Primary Care Provider [phone] Allergies Active Allergy Reactions Criticality Noted Date Comments Duloxetine Rash Medium 09/13/2019 Shellfish Derived Swelling High 08/15/2024 Reaction to shrimp Medications divalproex (DEPAKOTE) [address] tablet Take 3 tablets (750 mg total) by mouth at bedtime. Do not crush, chew, or split. Active propranoloL (INDERAL) 10 mg tablet Take 1 tablet (10 mg total) by mouth 2 (two) times a day. Active losartan (COZAAR) 25 mg tablet Take 1 tablet (25 mg total) by mouth 1 (one) time each day. Active melatonin 5 mg tablet Take 1 tablet (5 mg total) by mouth at bedtime as needed for sleep. 02/15/2025 Active venlafaxine XR (EFFEXOR-XR) 37.5 mg 24 hr capsule Take 1 capsule (37.5 mg total) by mouth 1 (one) time each day. 02/26/2025 Active traZODone (DESYREL) 100 mg tablet Take 2 tablets (200 mg total) by mouth at bedtime. 04/02/2021 Active LORazepam (ATIVAN) 2 mg tablet Take 1 tablet (2 mg total) by mouth every 8 (eight) hours if needed for anxiety. 02/15/2025 Active ibuprofen (ADVIL,MOTRIN) 600 mg tablet Take 1 tablet (600 mg total) by mouth every 8 (eight) hours if needed for mild pain. 02/14/2025 Active hydrOXYzine pamoate (VISTARIL) 25 mg capsule Take 1 capsule (25 mg total) by mouth 3 (three) times a day if needed. 03/13/2025 Active doxazosin (CARDURA) 4 mg tablet Take 1 tablet (4 mg total) by mouth at bedtime. 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, without mention of thyrotoxic crisis or storm 02/10/2006 DX:Thyrotoxicosis without m ention of goiter or other cause, without mention of thyrotoxic crisis or storm Depressive disorder, not els ewhere classified 02/10/2006 DX:Depressive disorder, not elsewhere classified Substance abuse ([facility] V24 , [facility] V28) Bipolar 1 disorder ([facility] V24, [facility] V28) Anxiety PTSD (post-traumatic stress disorder) Family History Medical History Relation Name Comments Hypertension Mother Thyroid disease Sister 1 Relation Name Status Comments Mother Sister 1 Sister 2 Social History Tobacco Use Types Packs/Day Years Used Date Smoking Tobacco: Every Day Cigarettes Smokeless Tobacco: Former Tobacco Cessation:Ready to Q uit: Not Asked; Counseling Given: Not Answered Alcohol Use Standard Drinks/Week Comments Not Currently 0 (1 standard drink = 0.6 oz pur e alcohol) Sex and Gender Information Value Date Recorded Sex Assigned at Not on file Legal Sex Male 5:44 AM EST Gender Identity Not on file Sexual Orientation Not on file Obstetrics History Last Filed Vital Signs Vital Sign Reading Time Taken Comments Blood Pressure 133/78 03/18/2025 9:19 AM EDT Pulse 56 03/18/2025 9:19 AM EDT Temperature 36.7 C (98.1 F) 03/18/2025 6:46 AM EDT Respiratory Rate 16 03/18/2025 6:46 AM EDT Oxygen Saturation 98% 03/18/2025 6:46 AM EDT Inhaled Oxygen Concentration - - Weight 96.7 kg (213 lb 1.6 oz) 03/15/2025 3:21 P M EDT Height 177.8 cm (5' 10 ) 03/15/2025 3:21 PM EDT Body Mass Index 30.58 03/15/2025 3:21 PM EDT Plan of Treatment Health Maintenance Due Date Last Done Comments Colorectal Cancer Screening: Colonoscopy 1975 Hepatitis A Vaccines (1 of 2 - Risk 2-dose series) 1994 Hepatitis B Vaccines (1 of 3 - 19+ 3-dose series) 1994 Pneumococcal Vaccine: 50+ Years (1 of 2 - PCV) 1994 Cholesterol Screening (Lipid Panel) 10/24/2022 Hepatitis C Screening 10/24/2022 Medicare Annual Wellness Visit 10/24/2022 Social Influencers of Health Screening 10/24/2022 Depression Screening 11/21/2024 COVID-19 Vaccine (2 - 2024-2 6 season) 2025 07/03/2021 Influenza Vaccine (#1) 2025 RSV Immunization Adult Patients (1 - Risk 50-74 years 1-dose series) 2025 Zoster Vaccines (1 of 2) 2025 Hypertension/CHF/CAD Annual BMP Blood Test 03/15/2026 03/15/2025, 12/28/2024 DTaP,Tdap,and Td Vaccines (2 - Td or Tdap) 11/14/2028 11/14/2018 HIV Screening Completed 08/12/2020 HIB Vaccines Aged Out No longer eligi ble based on patient's age to complete this topic HPV Vaccines Aged Out No longer eligi ble based on patient's age to complete this topic IPV Vaccines Aged Out No longer eligi ble based on patient's age to complete this topic MMR Vaccines Aged Out No longer eligi ble based on patient's age to complete this topic Meningococcal ACWY Vaccine Aged Out N o longer eligible based on patient's age to complete this topic Meningococcal B Vaccine Aged Out No l onger eligible based on patient's age to complete this topic RSV Immunization Patients Under 20 months Aged Out No longer eligible b ased on patient's age to complete this topic Varicella Vaccines Aged Out No longer eligible based on patient's age to complete this topic Procedures Procedure Name Priority Date/Time Associated Diagnosis Comments COMPREHENSIVE METABOLIC PANEL STAT 03/15/2025 3:44 PM EDT from Last 3 Months or Most Recently Relevant to Health Maintenance Results * Comprehensive metabolic panel (03/15/2025 3:44 PM EDT) Sodium 137 133 - 145 mmol/L LAB CHEMISTRY METHOD 03/15/2025 4:32 PM [facility] Potassium 4.3 3.5 - 5.5 mmol/L LAB CHEMISTRY METHOD 03/15/2025 4:32 PM [facility] Chloride 103 96 - 110 mmol/L LAB CHEMISTRY METHOD 03/15/2025 4:32 PM [facility] CO2 28 21 - 32 mmol/L LAB CHEMISTRY METHOD 03/15/2025 4:32 PM [facility] Anion Gap 6 3 - 11 LAB CHEMISTRY METHOD 03/15/2025 4:32 PM [facility] Glucose 79 70 - 100 mg/dL LAB CHEMISTRY METHOD 03/15/2025 4:32 PM [facility] BUN 10 5 - 25 mg/dL LAB CHEMISTRY METHOD 03/15/2025 4:32 PM [facility] Creatinine 0.80 0.70 - 1.30 mg/dL LAB CHEMISTRY METHOD 03/15/2025 4:32 PM [facility] eGFR 108 >=60 mL/min/1. 73m2 LAB CHEMISTRY METHOD 03/15/2025 4:32 PM [facility] Comment:Calculation based on the Chronic Kidney Disease Epidemiology Collaboration (CKD-EPI) equation refit without adjustment for race. BUN/Creatinine Ratio 12.5 LAB CHEMISTRY METHOD 03/15/2025 4:32 PM [facility] Calcium 10.0 8.5 - 10.5 mg/dL LAB CHEMISTRY METHOD 03/15/2025 4:32 PM [facility] AST (SGOT) 16 10 - 42 unit/L LAB CHEMISTRY METHOD 03/15/2025 4:32 PM [facility] ALT (SGPT) 23 10 - 60 unit/L LAB CHEMISTRY METHOD 03/15/2025 4:32 PM [facility] Alkaline Phosphatase 88 42 - 121 unit/L LAB CHEMISTRY METHOD 03/15/2025 4:32 PM EDT [facility] Total Protein 7.6 6.0 - 8.0 g/dL LAB CHEMISTRY METHOD 03/15/2025 4:32 PM EDT [facility] Albumin 3.6 3.2 - 5.0 g/dL LAB CHEMISTRY METHOD 03/15/2025 4:32 PM EDT [facility] Total Bilirubin 0.6 0.0 - 1.4 mg/dL LAB CHEMISTRY METHOD 03/15/2025 4:32 PM EDT [facility] Blood Venous blood specimen / Unknown Venipuncture / Unknown 03/15/2025 3:44 PM EDT 03/15/2025 3:50 PM EDT us [facility] Edgardo Panchal DO LAB BLOOD ORDERABLES Love l Result [facility] [address] [place] [address], [place] [phone] from Last 3 Months or Most Recently Relevant to Health Maintenance Insurance [employer] Member Subscriber Plan / Payer (Ef fective 2024-Present) Name:ANDRÉS LEONG Relation to Subscriber:Self Name:Andrés Leong Payer ID:[id number] Group ID:[id number] Type:Not on file Address: [address] [facility] [place] [address] Care Teams Hand Ornament Maker Relationship Specialty Start Date End Date Anjali Uribe FNP [address] [place] [phone] PCP - General Family Medicine 03/23/25
--- OUTSIDE RECORDS SUMMARY | 2025-09-26 18:56 | XMS_ITS | Encounter Summary ---
Author Organization [employer] Address [address] [place] [address] Care Team Providers Care Orthopaedic Nurse Name Role Phone Anjali Uribe HOME INSPECTOR Primary Care Provider [phone]- [phone] Encounter Details Date Type Department Care Team (Late st Contact Info) Description 03/22/2025 Lab Requisition [facility] - Main Lab [address] [place] [phone] Sania Wing V, CAP AND HAT PRODUCTION SUPERVISOR [address] [place] [address] Social History Tobacco Use Types Packs/Day Years [...] 11:40 PM EDT Andres Waldron RN * Do you have [...] Diagnoses Not on filedocumented in this encounter Care Teams Orthopaedic Nurse Relationship Specialty Start Date End Date Anjali Uribe FNP [address] [place] [phone] PCP - General Family Medicine 03/23/25 documented as of this encounter
--- OUTSIDE RECORDS SUMMARY | 2025-09-26 18:56 | XMS_ITS | Data Portability ---
Author Organization [facility], [address] Address [address] [place] [address] Assessment No assessment recorded. Plan of Treatment Reminders Order Date Submit Date Provider Last Modified By Organization Details Last Modified Time Details Appointments None record ed. Lab None record ed. Referral None record ed. Procedures None record ed. Surgeries None record ed. Imaging None record ed. Medication Orders None record ed. Patient TargetsNo targets recorded. Patient InstructionsNo instructions recorded. Reason for Referral None Reported. Procedures Surgical History Date Name Laterality Status Provider Name and Address Organization Details Recorded Time OC-UDS Send Out Template NON DOT completed Nancy [facility] 06/20/2024 16:15:15 Imaging Results None recorded. Procedure Notes None recorded. Medical Equipment None Reported. Medications Name Sig Start Date Stop Date Status Note LastModified by Organization Details LastModified Time quetiapine 25 mg tablet TAKE 1 TO 3 TABLETS BY MOUTH AT BEDTIME active Not Available Not Available No t Available ibuprofen 800 mg tablet TAKE 1 TABLET BY MOUTH EVERY 12 HOURS active Not Available Not Available No t Available amlodipine 5 mg tablet TAKE 1 TABLET BY MOUTH 1 TIME EACH DAY. active Not Available Not Available No t Available lorazepam 2 mg tablet TAKE 1 TABLET BY MOUTH 3 TIMES PER DAY NEEDED FOR ANXIETY active Not Available Not Available No t Available ibuprofen 600 mg tablet TAKE 1 TABLET BY MOUTH EVERY 6 HOURS NEEDED FOR PAIN FOR UP TO 30 DAYS. active Not Available Not Available No t Available cholecalciferol (vitamin D3) 50 mcg (2,000 unit) capsule TAKE 1 CAPSULE BY MOUTH EVERY DAY active Not Available Not Available No t Available Vitamin D3 50 mcg (2,000 unit) tablet TAKE 1 TABLET BY MOUTH EVERY DAY active Not Available Not Available No t Available Vitals None Recorded Social History None recorded. Functional Status None recorded. Mental Status None recorded. Family History Nothing Reported. Medical History No medical history recorded. Past Encounters Encounter ID Performer Location Encounter Start Date Encounter Closed Date Diagnosis/Indication Diagnosis SNOMED-CT Code Diagnosis ICD10 Code Diagnosis IMO Codes Diagnosis Note [id number] [facility] [id number] [facility] [address] [facility] [place] [address] 06/20/2024 16:00:27 06/20/2024 16:30:43 History and physical examination, occupation 246943603 Z02.1 Health Concerns Section Related Observation LastModified by Organization Detai ls LastModified Time None Recorded Concern Status LastModified by Organization Details LastModified Time None Recorded Advance Directives Directive None Recorded Payers Insurance Date Sequence Insurance Name Policy Number Policy Rod Covered Member ID Rod Member ID Guarantor Name 06/20/2024 OC-ESCREEN [employer] OTHER OTHER An jen Leong
--- OUTSIDE RECORDS SUMMARY | 2025-09-26 18:56 | XMS_ITS ---
Author Name [facility] Organization Unknown Encounters Encounter Type Encounter Reason Primary Diagnosis Location Date Ambulatory [facility] Care Team Organization Name Specialty Phone Email Start Date End Da te [facility] 5
--- OUTSIDE RECORDS SUMMARY | 2025-09-26 18:56 | XMS_ITS | Encounter Summary ---
Author Organization [employer] Address [address] [facility] [address]t [place] [address] Care Team Providers Care Outgoing Inspector Name Role Phone Russel Weinstein MD Primary Care Prov ider Encounter Details Date Type Department Care Team (Late st Contact Info) Description 04/09/2025 Orders Only [facility] [address] [place] [address] Hansa Martinez MA Social History Tobacco Use Types Packs/Day Years Used Date Smoking Tobacco: Every Day Cigarettes 0.5 30.8 Started: 1994 Smokeless Tobacco: Never Alcohol Use [...] with others, in a hotel, in a halfway, living outside on the street, on a [...] RENEE-7 Total Score 17 04/09/2025 3:40 PM JUAN PABLOT Hansa Martinez MA documented as of this encounter Plan of Treatment Upcoming Encounters Date Type Department Care Team (Late st Contact Info) Description 10/08/2025 3:30 PM EST Office Visit [facility] [address] [place] [address] Russel Weinstein MD [address] [place] [address] documented as of this encounter Visit Diagnoses Not on filedocumented in this encounter Additional Health Concerns Assessment Noted Time PHQ-9 Depression Total Score: 17 08/15/ 024 11:52 AM EDT documented as of this encounter Care Teams Outgoing Inspector Relationship Specialty Start Date End Date Russel Weinstein MD [address] [place] [address] PCP - General Internal Medicine 02/15/25 documented as of this encounter
--- OUTSIDE RECORDS SUMMARY | 2025-09-26 18:56 | XMS_ITS | Encounter Summary ---
Author Organization [employer] Address [address] [facility] 7[address] [place] [address] Care Team Providers Care Fur Grader Name Role Phone Russel Weinstein MD Primary Care Prov ider Reason for Visit * Reason Comments Med Refill Encounter Details Date Type Department Care Team ([facility] st Contact Info) Description 04/25/2025 Refill [facility] [address] [place], [place] [id number] Anton Clifton MD [address] [place] [address] Social History Tobacco Use Types Packs/Day Years [...] with others, in a hotel, in a chcf, living outside on the street, on a [...] AM EDT documented as of this encounter Plan of Treatment Upcoming Encounters Date Type Department Care Team (Late st Contact Info) Description 10/08/2025 3:30 PM EST Office Visit [facility] [address] [place] [address] Russel Weinstein MD [address] [place] [address] documented as of this encounter Visit Diagnoses Not on filedocumented in this encounter Additional Health Concerns Assessment Noted Time PHQ-9 Depression Total Score: 17 024 11:52 AM EDT documented as of this encounter Care Teams Fur Grader Relationship Specialty Start Date End Date Russel Weinstein MD [address] [place] [address] PCP - General Internal Medicine 02/15/25 documented as of this encounter
--- OUTSIDE RECORDS SUMMARY | 2025-09-26 18:56 | XMS_ITS | Encounter Summary ---
Author Organization [employer] Address [address] [place] [address] [place] [address] Care Team Providers Care Sales Floor Manager Name Role Phone Emilie Muse MD Primary Care Provider [phone] Russel Weinstein MD Primary Care Prov ider Encounter Details Date Type Department Care Team (Late st Contact Info) Description 06/25/2024 [facility] Only [facility] [address] [place] [address] Provider, MD Hola Social History Tobacco Use Types Packs/Day Years Used Date Smoking Tobacco: Never Assessed Sex and Gender Information Value Date Recorded Sex Assigned at Male 09/20/2022 10:14 AM EDT Legal Sex Male 10:14 AM EDT Gender Identity Male 09/20/2022 10:14 AM EDT Sexual Orientation Straight 09/20/2022 10 :14 AM EDT documented as of this encounter Plan of Treatment Upcoming Encounters Date Type Department Care Team (Late Contact Info) Description 10/08/2025 3:30 PM EST Office Visit [facility] [address] [place] [address] Russel Weinstein MD [address] [place] [address] documented as of this encounter Procedures Procedure Name Priority Date/Time Associated Diagnosis Comments CT HEAD/BRAIN VENOGRAM Routine 06/23/2024 4:[address] HEAD/BRAIN VENOGRAM Routine 06/23/2024 4:21 PM EDT documented in this encounter Results * CT HEAD/BRAIN VENOGRAM (06/23/2024 4:21 PM EDT) Anatomical Region Laterality Modality Computed Tomogra phy us Historical Provider MD JAMES CT PROCEDURES Final R esult * CT HEAD/BRAIN VENOGRAM (06/23/2024 4:21 PM EDT) Anatomical Region Laterality Modality Computed Tomogra phy us Historical Provider MD JAMES CT PROCEDURES Final R esult documented in this encounter Visit Diagnoses Not on filedocumented in this encounter Care Teams Sales Floor Manager Relationship Specialty Start Date End Date Emilie Muse MD [address] [place] [address] PCP - General Family Medicine 08/21/24 02/14/25 Russel Weinstein MD [address] [place] [address] PCP - General Internal Medicine 02/15/25 documented as of this encounter
--- OUTSIDE RECORDS SUMMARY | 2025-09-26 18:56 | XMS_ITS | Encounter Summary ---
Author Organization [employer] Address [address] [place] [address] Care Team Providers Care Night Shift Supervisor Name Role Phone Anjali Uribe [facility] Primary Care Provider [phone] Encounter Details Date Type Department Care Team (Late st Contact Info) Description 03/23/2025 Lab Requisition [facility] Lab [address] [place] [address] Anjali Uribe [address] [address] Other long term care administrator (current) drug therapy Social History Tobacco Use [...] Procedure Name Priority Date/Time Associated Diagnosis Comments VITAMIN D 25 HYDROXY Routine 03/23/2025 7:00 AM EDT Other alf (current) drug therapy HEMOGLOBIN A1C Routine 03/23/2025 7:00 AM EDT Other alf (current) drug therapy documented in this encounter Results * Hemoglobin A1c (03/23/2025 7:00 AM EDT) Hemoglobin A1C 5.4 <6.5 % LAB CHEMISTRY METHOD 03/24/2025 2:21 PM EDT [facility] Mean Bld Glu Estim. 108 mg/dL LAB CHEMISTRY METHOD 03/24/2025 2:21 PM EDT [facility] Blood Venous blood specimen / Unknown Venipuncture / Unknown 03/23/2025 7:00 AM EDT 03/23/2025 10:33 AM EDT us Anjali Uribe [facility] LAB BLOOD ORDERABLES Final Result [facility] [address] [place] [address], * Vitamin D 25 hydroxy (03/23/2025 7:00 AM EDT) Vit D, 25-Hydroxy 32.9 30.0 - 80.0 ng/mL LAB CHEMISTRY METHOD 03/23/2025 12:45 PM EDT [facility] Blood Venous blood specimen / Unknown Venipuncture / Unknown 03/23/2025 7:00 AM EDT 03/23/2025 10:33 AM EDT us Anjali FUNES LAB BLOOD ORDERABLES Final Result [facility] [address] [place] [address], documented in this encounter Visit Diagnoses Diagnosis Other alf (current) drug therapy documented in this encounter Care Teams Night Shift Supervisor Relationship Specialty Start Date End Date Anjali Uribe FNP [address] [place] [phone] PCP - General Family Medicine 03/23/25 documented as of this encounter
--- OUTSIDE RECORDS SUMMARY | 2025-09-26 18:56 | XMS_ITS | Clinical Summary ---
Author Organization [employer] Address [address] [place] [address] [address] [place] [address] Care Team Providers Care Director Of Labor And Delivery Name Role Phone Russel Weinstein MD Primary Care Prov ider Allergies Active Allergy Reactions Criticality Noted Date Comments Duloxetine Hcl 08/15/2024 Duloxetine 09/13/2019 Shellfish Allergy 08/15/2024 Medications * This document contains information received from the source organization and may not represent a complete record from that organization. methocarbamol (Robaxin) 750 MG tablet Take 1 tablet (750 mg) by mouth if needed in the morning, at noon, and at bedtime (pain). 30 tablet 1 08/15/2024 Active senna (Senokot) 8.6 MG tablet Take 2 tablets (17.2 mg) by mouth at bedtime. 60 tablet 1 08/15/2024 Active ibuprofen 400 MG tablet Take 1 tablet (400 mg) by mouth every 6 (six) hours if needed for moderate pain or fever for up to 30 doses. 30 tablet 08/15/2024 Active Misc. Devices (Pulse Oximeter For Finger) misc 1 each 2 times daily. 1 each 08/15/2024 Active busPIRone (Buspar) 30 MG tablet Take 30 mg by mouth 2 times daily. 04/26/2024 Active docusate calcium (Surfak) 240 MG capsule Take 240 mg by mouth Once per day. 05/16/2024 Active naproxen (Naprosyn) 500 MG tablet TAKE 1 TABLET ORALLY 2 TIMES A DAY NEEDED FOR PAIN 06/12/2024 Active polyethylene glycol, PEG, 3350 (Glycolax) 17 GM/SCOOP powder MIX 17 GRAMS IN LIQUID AND DRINK DAILY 05/16/2024 Active melatonin 5 MG tablet Take 1 tablet (5 mg) by mouth Once per day. 30 tablet 1 02/15/2025 Active doxazosin (Cardura) 4 MG tablet Take 1 tablet (4 mg) by mouth at bedtime. 30 tablet 1 02/15/2025 Active propranolol (Inderal) 10 MG tablet TAKE 1 TABLET BY MOUTH TWICE A DAY 180 tablet 3 02/15/2025 Active venlafaxine XR (Effexor XR) 75 MG 24 hr capsule Take 3 capsules (225 mg) by mouth Once per day. Do not crush or chew. 90 capsule 02/15/2025 02/16/20 26 Active Blood Pressure kit 1 kit Once per day. 1 kit 02/15/2025 Active divalproex (Depakote) 500 MG EC tabletIndicatio ns:Mixed anxiety and depressive disorder TAKE 2 TABLETS BY MOUTH AT BEDTIME. TAKE 3 TABLETS BY MOUTH AT BEDTIME. DO NOT CRUSH, CHEW OR SPLIT. 60 tablet 02/18/2025 Active divalproex (Depakote) 500 MG EC tabletIndicatio ns:Mixed anxiety and depressive disorder Take 2 tablets (1,000 mg) by mouth at bedtime. TAKE 2 TABLETS BY MOUTH AT BEDTIME. DO NOT CRUSH, CHEW OR SPLIT. 60 tablet 02/18/2025 Active traZODone (Desyrel) 100 MG tabletIndicatio ns:Mixed anxiety and depressive disorder Take 2 tablets (200 mg) by mouth at bedtime. 60 tablet 03/18/2025 Active losartan (Cozaar) 25 MG tablet Take 1 tablet (25 mg) by mouth Once per day. 30 tablet 5 04/09/2025 04/09/20 26 Active Blood Pressure kit 1 kit Once per day. 1 kit 04/09/2025 Active LORazepam (Ativan) 1 MG tablet Take 1 tablet (1 mg) by mouth if needed each day for anxiety for up to 20 days. 20 tablet 04/09/2025 Active Active Problems Problem Noted Date Diagnosed Date Encounter for medical examination to establish c are 02/15/2025 Assessment & Plan (02/15/2025 10:01 AM EDT): Last pcp visit over 1 year Hospitalization:- PMHx: HTN Pshx: - All: cymbalta/seafood Meds: as above Hepatitis C antibody test positive 08/24/2024 Substance induced mood disorder (CMS/HCC) 2023 Cannabis dependence 08/21/2024 Alcohol use disorder, moderate, dependence (CMS/ HCC) 08/15/2024 Bipolar disorder current episode depressed ([facility]/ HCC) 08/15/2024 Mixed anxiety and depressive disorder 08/15/2024 Assessment & Plan (04/09/2025 4:25 PM EDT): Patient refers recently was discharged from psych facility, has appointment next week with psych, will provide lorazepam 1mg #20, told from now on he has to follow up with psych for this medication. No suicidal/homicidal ideas Chronic hepatitis C (CMS/HCC) 08/15/2024 Cocaine abuse 08/15/2024 H/O: attempted suicide 08/15/2024 Major depressive disorder, r ecurrent episode, severe (CMS/HCC) 08/15/2024 Nicotine dependence 08/15/2024 Polyarthralgia 08/15/2024 Heroin use 08/15/2024 HTN (hypertension) 08/15/2024 Assessment & Plan (04/09/2025 4:26 PM EDT): Uncontrolled, he refers not taking losartan, will send rx and bp monitor and follow up in 1 month Assessment & Plan (02/15/2025 10:15 AM EDT): Will renew medication, he is on losartan, does not have a blood pressure monitor which will be sent to [facility] pharmacy, told to keep a bp log, target <140/90, follow up in 4 months Other constipation 08/15/2024 Resolved Problems Problem Noted Date Diagnosed Date Resolved Date Intravenous drug user 08/15/20242023 Encounters Date Type Department Care Team Description 08/06/2025 Telephone [facility] [address] [place] [address] Russel Weinstein MD Nurse Triage 08/01/2025 Telephone [facility] [address] [place], [place] [phone] Russel Weinstein MD Nurse Triage from Last 3 Months Immunizations Immunization Administration Dates Next Due Tdap 11/14/2018 Family History Medical History Relation Name Comments No Known Problems Father Anxiety disorder Mother Hypertension Mother Breast cancer Sister Relation Name Status Comments Father Mother Sister Social History Tobacco Use Types Packs/Day Years [...] with others, in a hotel, in a jail, living outside on the street, on a [...] Orientation Straight 09/20/2022 10 :14 AM EDT Last Filed Vital Signs Vital Sign Reading Time Taken Comments Blood Pressure 144/102 04/09/2025 3:19 PM EDT Pulse 76 04/09/2025 3:19 PM EDT Temperature 35.9 C (96.7 F) 04/09/2025 3:19 PM EDT Respiratory Rate 20 04/09/2025 3:19 PM EDT Oxygen Saturation 100% 08/15/2024 10:32 AM EDT Inhaled Oxygen Concentration - - Weight 98.4 kg (217 lb) 04/09/2025 3:19 PM EDT Height 180.3 cm (5' 11 ) 04/09/2025 3:19 PM EDT Body Mass Index 30.27 04/09/2025 3:19 PM EDT Plan of Treatment Upcoming Encounters Date Type Department Care Team ([facility] st Contact Info) Description 10/08/2025 3:30 PM EST Office Visit [facility] [address] [place] [address] CamposRussel Mae MD [address] [place] [address] Health Maintenance Due Date Last Done Comments CT Colonography 1975 Colonoscopy 1975 Colorectal Cancer Screening 1975 FIT DNA/Cologuard 1975 FIT 1975 FOBT 1975 Lipid Panel 1975 Sigmoidoscopy 1975 Alcohol/Substance Use Screening 1987 Family Planning (PISQ) 1990 Hepatitis A Vaccines (1 of 2 - Risk 2-dose series) 1994 Hepatitis B Vaccines (1 of 3 - 19+ 3-dose series) 1994 Pneumococcal Vaccine: 50+ Years (1 of 2 - PCV) 1994 COVID-19 Vaccine (2 - 2024-2 6 season) 2025 07/03/2021 Influenza Vaccine (#1) 2025 SDOH Screening 08/15/2025 08/15/2024 Depression Monitoring 08/18/2025 02/15/2025 , 08/15/2024 Zoster Vaccines (1 of 2) 2025 Disability Screening 02/15/2026 02/15/2025 Tobacco Screening 02/15/2026 02/15/2025 DTaP/Tdap/Td Vaccines (2 - T d or Tdap) 11/14/2028 11/14/2018 RSV Patients and Patients Aged 60 years or older (1 - 1-dose 75+ series) 2050 HIV Screening Completed 08/12/2020 HIB Vaccines Aged [...] patient's age to complete this topic Meningococcal Vaccine Aged Out No bridgett tigist eligible based on patient's age to complete this topic RSV under 20 months Aged Out No longe r eligible based on patient's age to complete this topic Rotavirus Vaccines Aged Out No longer eligible based on patient's age to complete this topic Procedures Procedure Name Priority Date/Time Associated Diagnosis Comments HIV 1/2 ANTIGEN/ANTIBODY, FOURTH GENERATION W/RFL Routine 08/12/2020 10:53 AM EDT from Last 3 Months or Most Recently Relevant to Health Maintenance Results * HIV 1/2 ANTIGEN/ANTIBODY,FOURTH GENERATION W/RFL (08/12/2020 10:53 AM EDT) HIV-1/2 ANTIGEN AND ANTIBODIES, 4TH GENERATION W/ REFLEX NON-REACT MISA NON-REACT MISA [facility] Comment: HIV-1 antigen and HIV-1/HIV-2 antibodies were not detected. There is no laboratory evidence of HIV infection. PLEASE NOTE: This information has been disclosed to you from records whose confidentiality may be protected by state law. If your state requires such protection, then the state law prohibits you from making any further disclosure of the information without the specific written consent of the person to whom it pertains, or as otherwise permitted by law. A general authorization for the release of medical or other information is NOT sufficient for this purpose. For additional information please refer to http://education.OneMorePallet/faq/FCX871 (This link is being provided for informational/ educational purposes only.) The performance of this assay has not been clinically validated in patients less than 2 years old. HIV-1/2 ANTIGEN AND ANTIBODIES, 4TH GENERATION W/ REFLEX NON-REACT MISA NON-REACT MISA [facility] Comment: HIV-1 antigen and HIV-1/HIV-2 antibodies were not detected. There is no laboratory evidence of HIV infection. PLEASE NOTE: This information has been disclosed to you from records whose confidentiality may be protected by state law. If your state requires such protection, then the state law prohibits you from making any further disclosure of the information without the specific written consent of the person to whom it pertains, or as otherwise permitted by law. A general authorization for the release of medical or other information is NOT sufficient for this purpose. For additional information please refer to http://ShipBob.OneMorePallet/faq/MVU775 (This link is being provided for informational/ educational purposes only.) The performance of this assay has not been clinically validated in patients less than 2 years old. HIV-1/2 ANTIGEN AND ANTIBODIES, 4TH GENERATION W/ REFLEX NON-REACT MISA NON-REACT M[facility] Comment: HIV-1 antigen and HIV-1/HIV-2 antibodies were not detected. There is no laboratory evidence of HIV infection. PLEASE NOTE: This information has been disclosed to you from records whose confidentiality may be protected by state law. If your state requires such protection, then the state law prohibits you from making any further disclosure of the information without the specific written consent of the person to whom it pertains, or as otherwise permitted by law. A general authorization for the release of medical or other information is NOT sufficient for this purpose. For additional information please refer to http://ShipBob.OneMorePallet/faq/TLY225 (This link is being provided for informational/ educational purposes only.) The performance of this assay has not been clinically validated in patients less than 2 years old. HIV-1/2 ANTIGEN AND ANTIBODIES, 4TH GENERATION W/ REFLEX NON-REACT MISA NON-REACT MISA [facility] Comment: HIV-1 antigen and HIV-1/HIV-2 antibodies were not detected. There is no laboratory evidence of HIV infection. PLEASE NOTE: This information has been disclosed to you from records whose confidentiality may be protected by state law. If your state requires such protection, then the state law prohibits you from making any further disclosure of the information without the specific written consent of the person to whom it pertains, or as otherwise permitted by law. A general authorization for the release of medical or other information is NOT sufficient for this purpose. For additional information please refer to http://ShipBob.OneMorePallet/faq/MPK942 (This link is being provided for informational/ educational purposes only.) The performance of this assay has not been clinically validated in patients less than 2 years old. HIV-1/2 ANTIGEN AND ANTIBODIES, 4TH GENERATION W/ REFLEX NON-REACT MISA NON-REACT MISA [facility] Comment: HIV-1 antigen and HIV-1/HIV-2 antibodies were not detected. There is no laboratory evidence of HIV infection. PLEASE NOTE: This information has been disclosed to you from records whose confidentiality may be protected by state law. If your state requires such protection, then the state law prohibits you from making any further disclosure of the information without the specific written consent of the person to whom it pertains, or as otherwise permitted by law. A general authorization for the release of medical or other information is NOT sufficient for this purpose. For additional information please refer to http://ShipBob.GeriJoy.We Cut The Glass/faq/QEG830 (This link is being provided for informational/ educational purposes only.) The performance of this assay has not been clinically validated in patients less than 2 years old. 08/12/2020 10:5 3 AM EDT us Historical Provider LAB BLOOD ORDERABLES Love [facility] Result [facility] [address] from Last 3 Months or Most Recently Relevant to Health Maintenance Insurance [facility] STANDARD CCA ONE CARE < 65 Care Teams Director Of Labor And Delivery Relationship Specialty Start Date End Date Russel Weinstein MD [address] [place] [address] PCP - General Internal Medicine 02/15/25
--- OUTSIDE RECORDS SUMMARY | 2025-09-26 18:56 | XMS_ITS | Encounter Summary ---
Author Organization [employer] Address [address] [facility] 7 [place] [address] Care Team Providers Care Grades 1 Thru 6 Visiting Teacher Name Role Phone Russel Weinstein MD Primary Care Prov ider Reason for Visit * Reason Onset Date Comments Nurse Triage 04/05/2025 Encounter Details Date Type Department Care Team ([facility] st Contact Info) Description 04/05/2025 Telephone [facility] [address] [place] [address] Russel Weinstein MD [address] [place] [id number] Nurse Triage Social History Tobacco Use Types Packs/Day Years [...] with others, in a hotel, in a intermediate, living outside on the street, on a [...] AM EDT documented as of this encounter Miscellaneous Notes * Telephone Encounter - Sushila Andersen RN - 04/05/2025 12:58 PM EDT Called pt. He states that he was at the [facility] for 3 weeks for Mood swings. Pt lives in the sober house. Pt was prescribed Ativan 1mg and Depakote 500mg 2 pills twice dailythat he picked up last night after being discharged from [facility] facility. Pt states it helps hisanxiety and panic attacks right now but, pt. Is concerned that he is going to run out of ativan andis looking for an appt. With PCP. Pt. States I do not want to stay on Ativan forever but, it's going to take a while for my other medications to kick in and he does not want to struggle with having a panick attack and not having Ativan. Pt. Advised me that he has 8 Ativan for the weekend and it will get him by until appt. On Tuesday04/09/25 when he see's PCP. Pt. Denies panic attack at present a nd denies any thoughts of suicide or self harm. Will send this note to clinical care coordinators so that they can get notes from [facility] in [place], [place] and discharge instructions and medications. Protocol Used: Anxiety and Panic Attack (Adult) Protocol-Based Disposition: See in Office or Video Visit within 2 Weeks Video visit offer not recorded Positive Triage Question: * Symptoms of anxiety or panic attack and is a chronic symptom (recurrent or ongoing AND present > 4 weeks) * All higher-acuity triage questions were negative Care Advice Discussed: * Note to Triager - Anxiety Symptoms * Reassurance and Education - Anxiety * Anxiety - Healthy Lifestyle Tips * Note to Triager - How to Help a Patient During a Panic Attack * Anxiety - Healthy Lifestyle Tips * Avoid Caffeine * Avoid Triggers of Anxiety * Telephone Encounter - Chaparrita Leong - 04/05/2025 12:45 PM EDT Symptom: Anxiety or Panic Attack Outcome: Schedule an urgent appointment (within 4 hours) or talk to a nurse or provider soon Reason: Anxiety keeps from normal daily activities (such as school or work) The caller accepted this outcome. [phone] Fyi *pt states experiencing panic attack and requesting lorazepam, not prescribed before by pcp. documented in this encounter Plan of Treatment Upcoming Encounters Date Type Department Care Team (Late st Contact Info) Description 10/08/2025 3:30 PM EST Office Visit [facility] [address] [place] [address] Russel Weinstein MD [address] [place] [address] documented as of this encounter Visit Diagnoses Not on filedocumented in this encounter Additional Health Concerns Assessment Noted Time PHQ-9 Depression Total Score: 17 024 11:52 AM EDT documented as of this encounter Care Teams Grades 1 Thru 6 Visiting Teacher Relationship Specialty Start Date End Date CamposRussel Mae MD [address] [place] [phone] PCP - General Internal Medicine 02/15/25 documented as of this encounter
--- OUTSIDE RECORDS SUMMARY | 2025-09-26 18:56 | XMS_ITS | Encounter Summary ---
Author Organization [employer] Address [address] [place] [address] 7 [place] [address] Care Team Providers Care Extrusion Manager Name Role Phone Russel Weinstein MD Primary Care Prov ider Reason for Visit * Reason Comments Med Change Request Encounter Details Date Type Department Care Team ([facility] Contact Info) Description 03/09/2025 Refill [facility] [address] [place], [place] [phone] Russel Weinstein MD [address] [place] [address] Social History Tobacco Use Types Packs/Day Years [...] with others, in a hotel, in a prison, living outside on the street, on a [...] Description 10/08/2025 3:30 PM EST Office Visit [facility] [address] [place] [address] Russel Weinstein MD [address] [place] [address] documented as of this encounter Visit Diagnoses Not on filedocumented in this encounter Additional Health Concerns Assessment Noted Time PHQ-9 Depression Total Score: 17 024 11:52 AM EDT documented as of this encounter Care Teams Extrusion Manager Relationship Specialty Start Date End Date Russel Weinstein MD [address] [place] [address] PCP - General Internal Medicine 02/15/25 documented as of this encounter
--- OUTSIDE RECORDS SUMMARY | 2025-09-26 18:56 | XMS_ITS | Encounter Summary ---
Author Organization [employer] Address [address] [facility] 7t [place] [address] Care Team Providers Care Hospital Director Name Role Phone Emilie Muse MD Primary Care Provider [phone] Russel Weinstein MD Primary Care Prov ider Reason for Visit * Reason Comments Med Change Request Encounter Details Date Type Department Care Team ([facility] st Contact Info) Description 08/21/2024 Refill [facility] [address] [place], [place] [phone] Anton Clifton MD [address] [place] [address] Social History Tobacco Use Types Packs/Day Years Used Date Smoking Tobacco: Every Day Cigarettes Smokeless Tobacco: Never Depression Answer Date Recorded Patient Health Questionnaire-9 Score 17 08/15/2024 Patient Health Questionnaire-9 Score 17 08/15/2024 Last PHQ-9: Questionnaire Data Not on file 0 08/15/2024 Housing Stability Answer Date Recorded What is your housing situation today? I do not have housing (Staying with others, in a hotel, in a fdc, living outside on the street, on a [...] Answer Date Recorded Patient Health Questionnaire-2 Score 5 08/15/2024 Internet Access Answer Date Recorded Internet Access [...] Description 10/08/2025 3:30 PM EST Office Visit [facility] [address] [place] [address] Russel Weinstein MD [address] [place] [address] documented as of this encounter Visit Diagnoses Not on filedocumented in this encounter Additional Health Concerns Assessment Noted Time PHQ-9 Depression Total Score: 17 024 11:52 AM EDT documented as of this encounter Care Teams Hospital Director Relationship Specialty Start Date End Date Emilie Muse MD [address] [place] [address] PCP - General Family Medicine 08/21/24 02/14/25 Russel Weinstein MD [address] [place] [address] PCP - General Internal Medicine 02/15/25 documented as of this encounter
[2025-09-26 19:27] LABS: Appearance Urine Clear; Glucose Urine UA Negative (Negative); PH 6.5 (5.0-9.0); Specific Gravity - Urine 1.010 (1.005-1.025)
[2025-09-26 19:33] LABS: Cannabinoid Screen Urine POSITIVE (Not Detect)
[2025-09-26 19:38] LABS: COVID-19 Test Negative (Negative); IDNOW Serial# 55D5AD1C
[2025-09-26 20:19] LABS: Hematocrit 44.8 % (42.0-52.0); Hemoglobin 14.9 g/dl (14.0-18.0); Imm Gran Abs Auto 0.02 X10*3/uL (0.00-0.03); Imm Gran Pct Auto 0.2 % (0.0-0.4); Lymphocytes Absolute Auto 5.7 X10*3/uL (1.2-4.9); MANUAL DIFF FLAG SCAN; Mean Corpuscular HGB Conc 33.3 g/dl (31.0-36.0); Mean Corpuscular Hemoglobin 30.1 pg (27.0-33.0); Mean Corpuscular Volume 90.5 fL (80.0-98.0); NRBC Abs Auto 0.000 X10*3/uL (0.0-0.012); NRBC Pct Auto 0.0 /100WBC (0.0-0.2); Platelet Count 329 X10*3/uL (160-400); Red Blood Count 4.95 X10*6/uL (4.60-5.80); SCAN SMEAR FLAG 1; White Blood Count 10.8 X10*3/uL (4.8-10.8)
--- NOTE | 2025-09-26 20:27 | PC.NURSE ---
Patient arrived to POD. groover and striper operator completed with Security present. Belongings secured. Patient presents as calm and cooperative with care. Endorses +SI no plan/intent and +HI towards anyone I confront. Denies AVH. Contracts for safety. Med Req completed/confirmed per patient information. Reports he's been noncompliant with medication x2 weeks d/t connectivity issues with his cellphone/missing provider appointments. During these 2 weeks, patient reports an increase of depression, mood swings, and irritability. Endorses chronic bilateral knee pain. Endorses daily marijuana use. Denies ETOH/other substance use. Denies current therapist/psychiatrist and states I missed 2-3 appointments and now I can't go back. Endorses poor sleep and states I haven't slept for 3-4 days. 15 minute safety checks in place. Will continue to monitor for safety.
[2025-09-26 20:34] LABS: Acetaminophen LAB < 3 mcg/mL (<30); Salicylate < 5.0 mg/dL (15-30)
[2025-09-26 20:38] LABS: Alanine Aminotransferase 19 U/L (0-40); Albumin Level 4.1 g/dL (3.5-5.0); Alkaline Phosphatase 80 U/L (39-117); Anion Gap 16 (12-20); Aspartate Amino Transferase 25 U/L (5-37); Blood Urea Nitrogen 12 mg/dL (9-16); Calcium 9.4 mg/dL (8.4-10.2); Carbon Dioxide 21 mmol/L (22-29); Chloride 109 mmol/L (96-108); Creatinine Clr Calc Pharmacy 127.1; Estimated Glomerular Filt Rate > 60; Potassium 4.5 mmol/L (3.3-5.1); Sodium 141 mmol/L (135-145); Total Protein 7.5 g/dL (6.5-8.0)
[2025-09-26 23:33] VITALS: BP 129/61; PULSE 47
--- NOTE | 2025-09-27 | ECG_ITS ---
Test Reason : r/o prolonged QT Blood Pressure : */* mmHG Vent. Rate : 49 BPM Atrial Rate : 49 BPM P-R Int : 148 ms QRS Dur : 90 ms QT Int : 450 ms P-R-T Axes : 29 26 33 degrees QTcB Int : [address] elevation, consider early repolarization Borderline ECG When compared with ECG of 11-Jul-2025 07:49, No significant change was found Referred By: Luis Fernando Booker Electronically Signed By: Cricket Zarco
[2025-09-27 06:53] VITALS: BP 143/67; PULSE 54; RESP 17; TEMP 36.9; O2SAT 98
--- NOTE | 2025-09-27 07:44 | PC.NURSE ---
Assumed care of patient at 0645, patient appears to be in no apparent distress this am, resting on couch in BH 8, respirations even and unlabored. Continue plan of care for IPLOC
[2025-09-27 08:34] VITALS: BP 146/79
[2025-09-27 08:35] VITALS: BP 146/79
--- NOTE | 2025-09-27 14:00 | PHA.MEDREC ---
Addendum entered by Isabel Hobbs [facility] 09/27/25 15:23: Reviewed by [facility] Addendum entered by Hadley Foster 09/27/25 15:21: Spoke with pt nurse on M5 to ask pt about Luasidone 40mg once at bedtime; pt confirmed he takes 1 at bedtime. Original Note: Pharmacy Consult ? Medication Reconciliation Pharmacy reviewed med rec done by nursing. Spoke with pt and he verified med list. Pt confirmed he takes 1 50mg tab of Clompiramine at bedtime now; nurse had confirmed 25mg x2 at bedtime and he takes Trazodone 100mg x2 at bedtime as needed and Trazodone 50mg as needed at bedtime for a total nightly dose of 250mg; nurse confirmed 100mg x2 as needed sleep and no 50mg, updated per pt confirmation. Pt states he ran out of his medications in the last month and have been having a hard time getting them refilled by a
[2025-09-27 15:49] VITALS: BP 140/76; PULSE 68; RESP 16; TEMP 36.9; O2SAT 98
[2025-09-27 16:35] VITALS: BMI 31.6
--- NOTE | 2025-09-27 17:59 | PC.ADMIT ---
This is one of multiple admissions for this 50 y.o male to this [facility] at [facility]. Arrived on unit at 1510 on a Section 12A and placed on 15 min safety checks. Referred by [facility] Care Team with Dx: Unspecified Bipolar Disorder. Nurse to nurse done prior to admission to unit with [facility] ED Pod. Skin integrity check/change management director done upon admission with 2 staff present. Signed CV after meeting with Ruth Nicholas, provider. Medical issues: HTN. Substance issue: Reports daily use of marijuana x 1 1/2 months, tox screen positive for THC. States he lives in a sober house and had been free from etoh, marijuana x7 months. Precipitating events to admission: self presented to [facility] ED reporting medication non-compliance x2 weeks due to missing his outpt appointments. Reports being dropped by his providers and not being able to refill prescriptions. Reports increase in depression and anxiety due to not having meds. Reports only taking Propranolol and Hydroxyzine recently. Cooperative with admission process. Presents with depressed mood and affect. Denies SI/HI, AH/VH. Alert and oriented x4. Requested and received Hydroxyzine 25mg po at 1637 for anxiety with some effect.
[2025-09-27 20:00] VITALS: BP 127/71; PULSE 96; TEMP 36.4; O2SAT 96
--- NOTE | 2025-09-27 21:05 | HO.PSYADMNOT ---
HPI Date of Service: 09/27/25 Chief Complaint: decompensation Sources of Information: patient interviewed, chart reviewed and crisis/core team assessment reviewed HPI Subjective Notes: Gonzalez Warning and Conditional Voluntary Healthcare Proxy: No Guardianship: No Medical Problems Affecting Mental Status: No Narrative: Per Care team note: Pt is a 50 year oldHispanic, Bilingual speaking male with hx of HTN, bipolar, PTSD who is assessed by the CARE Team at [facility] ED after he self presents reporting medication noncompliance x2 weeks due to missing his outpatient appointments. He reports being dropped by his providers, thus being unable to refill his prescriptions. Patient is very familiar with [facility], psych as patient has been admitted here numerous times. He was discharged nn M3 on 07/30 ( from 07/11/25-07/30/25). On M5: patient reports reason for this admission is because he ran out of medications for almost two weeks. He reports that he missed three appointments and when he called the office, left VM but did not get a call back. Report that he needs new OP psychiatrist. Currently has no PCP or therapist neither. Not having meds for 2 weeks affects his mental health, sleep and appetite. Denies SI/SIB/HI/AVH at this current time. Report moderate to severe anxiety/depression. Mood is really bad . Discuss with patient regarding medication plan, he is receptive. Restart all meds but lower dose of [place] 600mg at HS. Will titrate up to 1,200mg in next couple of days as home dose. He does not want to continue with Latuda as it is complicated with food intake which bothers him. In the past, he already had thoughts of stop taking it back and forth. He is aware that we will not continue with Ativan. Patient is A+Ox4. Wearing hospital attire, anxious, depressed but pleasant and cooperative, no ADL's issues but unkempt hair. Good eye contact. Speech is WNL, no manic behavior. Thought process is organized, linear. Thought content is with treatment and future focus, goal directed. No SI/SIB/HI/AVH but Passive with SI prior to coming to the ED. No delusional or paranoid statement made. Do not appear to be psychotic. Poor judgment and insight. Past Psychiatric History: History of multiple inpatient psychiatric hospitalizations. treatment?trials: [place];?cause?sexual?side?effects?so?switch?to?Depakote?which?he?says?works?well. Seroquel, Thorazine, Buspar, Abilify, Wellbutrin, Mirtazepine, Gabapentin, Zyprexa: have not been that helpful. however, last admission reports Zyprexa was helpful and was discharged with 5mg PRN daily. Reports?ECT?in?the?past,?3?independent?times. Not a good candidate for ECT. Prescriber: Ryne ([facility]) but report no current provider. Therapist: does not have one at this time. hx of SIB: denies Medical Evaluation Reviewed: Yes Unremarkable COUNTS INCLUDE 234 BEDS AT THE [facility] Medical History Suicidal ideation Post traumatic stress disorder Alcohol use disorder Cocaine use disorder Hypertension Anxiety Depression Family History: Brother: Depression Sister: Anxiety Social History: Lives in a sober home. single and . One adult daughter who he does not speak to. Disability. Highest level of education completed high school diploma. Substance History: Denies. Trauma History: patient states he was traumatized by his divorce and inability to see his daughter. Diagnostics Vital Signs (24Hr): Vital Signs - 24 hr 09/26/25 23:33 09/27/25 06:53 09/27/25 08:34 Temperature 98.4 F Pulse Rate 47 L 54 Respiratory Rate 17 Blood Pressure 129/61 143/67 H 146/79 H Pulse Oximetry 98 Oxygen Delivery Method Room Air 09/27/25 08:35 09/27/25 15:49 Temperature 98.5 F Pulse Rate 68 Respiratory Rate 16 Blood Pressure 146/79 H 140/76 H Pulse Oximetry 98 Oxygen Delivery Method Room Air BMI result Body Mass Index 31.6 Labs 09/26/25 20:04 09/26/25 20:04 Labs: Laboratory Results - last 48 hr 09/26/25 09/26/25 19:16 20:04 WBC 10.8 RBC 4.95 Hgb 14.9 Hct 44.8 MCV 90.5 MCH 30.1 MCHC 33.3 RDW 13.0 Plt Count 329 D MPV 9.3 L Immature Gran % (Auto) 0.2 Neut % (Auto) 40.7 L Lymph % (Auto) 53.1 H [place] % (Auto) 3.6 Eos % (Auto) 1.9 Baso % (Auto) 0.5 Lymph # (Auto) 5.7 H [place] # (Auto) 0.4 Eos # (Auto) 0.2 Baso # (Auto) 0.1 Abs Immat Gran (auto) 0.02 Absolute Neuts (auto) 4.4 Absolute Nucleated RBC 0.000 Nucleated RBC % (auto) 0.0 Smear Tech's Comments VERIFIED Sodium 141 Potassium 4.5 Chloride 109 H Carbon Dioxide 21 L Anion Gap 16 BUN 12 Creatinine 0.86 Estim Creat Clear Calc 127.1 Estimated GFR > 60 Random Glucose 99 Calcium 9.4 Total Bilirubin 0.4 AST 25 ALT 19 Alkaline Phosphatase 80 Total Protein 7.5 Albumin 4.1 Urine Color Yellow Urine Appearance Clear Urine pH 6.5 Ur Specific [place] 1.010 Urine Protein Negative Urine Glucose (UA) Negative Urine Ketones Negative Urine Blood Negative Urine Nitrite Negative Ur Leukocyte Esterase Negative Salicylates < 5.0 L Urine Opiates Screen Not Detected Ur Buprenorphine Scrn Not Detected Ur Oxycodone Screen Not Detected Urine Methadone Screen Not Detected Urine Fentanyl Screen Not Detected Acetaminophen < 3 Ur Barbiturates Screen Not Detected Ur Phencyclidine Scrn Not Detected Ur Amphetamines Screen Not Detected U Benzodiazepines Scrn Not Detected Urine Cocaine Screen Not Detected U Marijuana (THC) Screen POSITIVE H Ethyl Alcohol < 10 COVID-19 (RAF) Negative COVID-19 Clin Com See Note Meds/Allergies Meds Home Medications ?Medication ?Instructions ?Recorded ?Confirmed ?Type clomipramine 50 mg capsule 50 mg PO BEDTIME 09/27/25 09/27/25 History lurasidone 40 mg tablet 40 mg PO BEDTIME depressive 09/27/25 09/27/25 History disorder trazodone 50 mg tablet 50 mg PO BEDTIME PRN insomnia 09/27/25 09/27/25 History Allergies Allergies Allergy/AdvReac Type Severity Reaction Status Date / Time duloxetine (From CYMBALTA) Allergy Unknown RASH Verified 09/26/25 19:59 shrimp Allergy Anaphylaxis Verified 09/26/25 19:59 Mental Status Exam Mental Status Exam Narrative: Patient is A+Ox4. Wearing hospital attire, anxious, depressed but pleasant and cooperative, no ADL's issues but unkempt hair. Good eye contact. Speech is WNL, no manic behavior. Thought process is organized, linear. Thought content is with treatment and future focus, goal directed. No SI/SIB/HI/AVH but Passive with SI prior to coming to the ED. No delusional or paranoid statement made. Do not appear to be psychotic. Poor judgment and insight. Assessment & Plan Assessment & Plan (1) Bipolar disorder, now depressed: Status: Acute Qualifiers: Current episode severity: unspecified Qualified Code(s): F31.30 - Bipolar disorder, current episode depressed, mild or moderate severity, unspecified Code(s): F31.30 - Bipolar disorder, current episode depressed, mild or moderate severity, unspecified (2) PTSD (post-traumatic stress disorder): Status: Acute Code(s): F43.10 - Post-traumatic stress disorder, unspecified (3) Suicidal ideation: Status: Acute Code(s): R45.851 - Suicidal ideations (4) Hypertension: Status: Acute Code(s): I10 - Essential (primary) hypertension Plan HPI: Pt is a 50 year old , Bilingual speaking male with hx of HTN, bipolar, PTSD who is assessed by the CARE Team at [facility] ED after he self presents reporting medication noncompliance x2 weeks due to missing his outpatient appointments. He reports being dropped by his providers, thus being unable to refill his prescriptions. Formulation/clinical reasoning: No assess to meds. Off meds x2 weeks. Not FLU with appoitnemnt. Decompensation, increased in depression, anxiety and SI. Given Bipolar hx and PTSD, HTN, patient would benefit to be in restrictive environment for his own safety, medication restart, learning coping skills, and refer patient back to outpatient psychiatric services aftercare Hospital course: 09/27/25: Restart all meds but lower dose of [place] 600mg at HS. Will titrate up to 1,200mg in next couple of days as home dose. He does not want to continue with Latuda as it is complicated with food intake which bothers him. In the past, he already had thoughts of stop taking it back and forth. He is aware that we will not continue with Ativan. Propranonol 20mg BID for anxiety Norvasc 5mg daily for HTN Depakote 750mg at HS for mood Zyprexa 5mg TID PRN for severe anxiety/agitation. Clomipranine 50mg at HS for OCD- Question if he actually needs it. Plan Patient on 15 minute checks for safety. Admitted to M5. CV. Work with treatment team to do collateral. Patient has no OP psychiatrist. Re-start all home meds with lower dose and titrate to therapeutic level. Will order VPA and [place] levels in next couple of days. Patient educated on: diagnosis, medication risk/benefits and therapeutic strategies Informed Consent: understands and further education needed Reason for continued inpatient stay Substantial Risk for: med/psych decompensation Statement Statement: I have reviewed the history and physical and performed a pertinent examination on my patient. No changes have occurred unless specified. If the History and Physical was not performed prior to admission, the Hospitalist's service will be consulted for completing the admission physical. Time Spent With Patient Time: Total time managing care of this patient today ____ minutes.
--- NOTE | 2025-09-28 07:01 | HO.PSYCHPN ---
Subjective Subjective Date of Service: 09/28/25 Reason For Visit: decompensation Subjective Notes: Conditional Voluntary Medical Problems Affecting Mental Status: No Interim History: Met with patient. Discussed with Nursing. Overall reports anxiety has been very high, poor sleep and hopeful admission will be short rather than extended admission he last experienced. Reports after discharge ran out of medications because he did not follow up with providers. Denies current SI. No psychosis. Thankful for support. Attending groups. We did discuss increasing olanzapine and trazodone p.r.n. dosing for anxiety and sleep while he reestablishes on medications Medication Compliance: Yes Side effects from medications: No Attending Groups: Intermittent Review of Systems Acute medical concerns: No Review of Systems Review of Systems nothing acute Mental Status Exam Mental Status Exam Narrative: pleasant. Engaged. Hospital clothing. Fair self-care. Anxious. Endorses depression. No SI. No HI. No agitation or psychosis. Insight and judgment good Diagnostics Vital Signs (24Hr): Vital Signs - 24 hr 09/27/25 08:34 09/27/25 08:35 09/27/25 15:49 Temperature 98.5 F Pulse Rate 68 Respiratory Rate 16 Blood Pressure 146/79 H 146/79 H 140/76 H Pulse Oximetry 98 Oxygen Delivery Method Room Air 09/27/25 20:00 Temperature 97.6 F Pulse Rate 96 Respiratory Rate Blood Pressure 127/71 Pulse Oximetry 96 Oxygen Delivery Method Room Air BMI result Body Mass Index 31.6 Labs 09/26/25 20:04 09/26/25 20:04 Labs: Laboratory Results - last 48 hr 09/26/25 09/26/25 19:16 20:04 WBC 10.8 RBC 4.95 Hgb 14.9 Hct 44.8 MCV 90.5 MCH 30.1 MCHC 33.3 RDW 13.0 Plt Count 329 D MPV 9.3 L Immature Gran % (Auto) 0.2 Neut % (Auto) 40.7 L Lymph % (Auto) 53.1 H Haines % (Auto) 3.6 Eos % (Auto) 1.9 Baso % (Auto) 0.5 Lymph # (Auto) 5.7 H Haines # (Auto) 0.4 Eos # (Auto) 0.2 Baso # (Auto) 0.1 Abs Immat Gran (auto) 0.02 Absolute Neuts (auto) 4.4 Absolute Nucleated RBC 0.000 Nucleated RBC % (auto) 0.0 Smear Tech's Comments VERIFIED Sodium 141 Potassium 4.5 Chloride 109 H Carbon Dioxide 21 L Anion Gap 16 BUN 12 Creatinine 0.86 Estim Creat Clear Calc 127.1 Estimated GFR > 60 Random Glucose 99 Calcium 9.4 Total Bilirubin 0.4 AST 25 ALT 19 Alkaline Phosphatase 80 Total Protein 7.5 Albumin 4.1 Urine Color Yellow Urine Appearance Clear Urine pH 6.5 Ur Specific [place] 1.010 Urine Protein Negative Urine Glucose (UA) Negative Urine Ketones Negative Urine Blood Negative Urine Nitrite Negative Ur Leukocyte Esterase Negative Salicylates < 5.0 L Urine Opiates Screen Not Detected Ur Buprenorphine Scrn Not Detected Ur Oxycodone Screen Not Detected Urine Methadone Screen Not Detected Urine Fentanyl Screen Not Detected Acetaminophen < 3 Ur Barbiturates Screen Not Detected Ur Phencyclidine Scrn Not Detected Ur Amphetamines Screen Not Detected U Benzodiazepines Scrn Not Detected Urine Cocaine Screen Not Detected U Marijuana (THC) Screen POSITIVE H Ethyl Alcohol < 10 COVID-19 (RAF) Negative COVID-19 Clin Com See Note Medications Medications Current Medications Acetaminophen (Acetaminophen 325 Mg Tablet) 650 mg PO Q6H PRN PRN Reason: Headache/Pain, Scale 1-10 Al Hydroxide/Mg Hydroxide (Magnesium Hydrox/Alum Hydrox 30 Ml Oral.Susp) 30 ml PO Q6H PRN PRN Reason: Heartburn/Nausea Amlodipine Besylate (Amlodipine Besylate 5 Mg Tablet) 5 mg PO DAILY YOBANI; Protocol Last Admin: 09/27/25 08:34 Dose: 5 mg Clomipramine HCl (Clomipramine Hcl 25 Mg Capsule) 50 mg PO BEDTIME YOBANI Last Admin: 09/27/25 21:36 Dose: 50 mg Divalproex Sodium (Divalproex Sodium 250 Mg Tablet.Dr) 750 mg PO BEDTIME YOBANI Last Admin: 09/27/25 21:36 Dose: 750 mg Hydroxyzine HCl (Hydroxyzine Hcl 25 Mg Tablet) 25 mg PO Q6H PRN PRN Reason: mild anxiety Last Admin: 09/27/25 16:37 Dose: 25 mg [place] Carbonate ([place] Carbonate Er 300 Mg Tablet.Er) 600 mg PO BEDTIME YOBANI Last Admin: 09/27/25 21:39 Dose: 600 mg Magnesium Hydroxide (Milk Of Magnesia 30 Ml Oral.Susp) 30 ml PO DAILY PRN PRN Reason: Constipation Melatonin (Melatonin 3 Mg Tablet) 9 mg PO BEDTIME YOBANI Last Admin: 09/27/25 21:37 Dose: 9 mg Mirtazapine (Mirtazapine 15 Mg Tablet) 15 mg PO BEDTIME YOBANI Last Admin: 09/27/25 21:36 Dose: 15 mg Naproxen (Naproxen 500 Mg Tablet) 500 mg PO Q12H PRN On Hold: 09/27/25 15:47 Comment: Order held by Process Transfer PRN Reason: Knee and shoulder pain Nicotine (Nicotine 21 Mg Patch.Td24) 21 mg TRANSDERMA DAILY PRN PRN Reason: smoking cessation Nicotine Polacrilex (Nicotine Polacrilex 2 Mg Gum) 4 mg BUCCAL Q2H PRN PRN Reason: Nicotine Cravings Olanzapine (Olanzapine 5 Mg Tablet) 5 mg PO TID PRN PRN Reason: agitation Last Admin: 09/27/25 21:35 Dose: 5 mg Propranolol HCl (Propranolol Hcl 20 Mg Tablet) 20 mg PO TID YOBANI; Protocol Last Admin: 09/27/25 21:38 Dose: 20 mg Trazodone HCl (Trazodone Hcl 100 Mg Tablet) 200 mg PO BEDTIME PRN PRN Reason: Sleep Last Admin: 09/27/25 21:35 Dose: 200 mg Allergies Allergies Allergy/AdvReac Type Severity Reaction Status Date / Time duloxetine (From CYMBALTA) Allergy Unknown RASH Verified 09/26/25 19:59 shrimp Allergy Anaphylaxis Verified 09/26/25 19:59 Assessment & Plan Assessment & Plan (1) Bipolar disorder, now depressed: Qualifiers: Current episode severity: unspecified Qualified Code(s): F31.30 - Bipolar disorder, current episode depressed, mild or moderate severity, unspecified Status: Acute Code(s): F31.30 - Bipolar disorder, current episode depressed, mild or moderate severity, unspecified (2) PTSD (post-traumatic stress disorder): Status: Acute Code(s): F43.10 - Post-traumatic stress disorder, unspecified (3) Suicidal ideation: Status: Acute Code(s): R45.851 - Suicidal ideations (4) Hypertension: Status: Acute Code(s): I10 - Essential (primary) hypertension Plan HPI: Pt is a 50 year old , Bilingual speaking male with hx of HTN, bipolar, PTSD who is assessed by the CARE Team at [facility] after he self presents reporting medication noncompliance x2 weeks due to missing his outpatient appointments. He reports being dropped by his providers, thus being unable to refill his prescriptions. Formulation/clinical reasoning: No assess to meds. Off meds x2 weeks. Not FLU with appoitnemnt. Decompensation, increased in depression, anxiety and SI. Given Bipolar hx and PTSD, HTN, patient would benefit to be in restrictive environment for his own safety, medication restart, learning coping skills, and refer patient back to outpatient psychiatric services aftercare Hospital course: 09/27/25: Restart all meds but lower dose of [place] 600mg at HS. Will titrate up to 1,200mg in next couple of days as home dose. He does not want to continue with Latuda as it is complicated with food intake which bothers him. In the past, he already had thoughts of stop taking it back and forth. He is aware that we will not continue with Ativan. Propranonol 20mg BID for anxiety Norvasc 5mg daily for HTN Depakote 750mg at HS for mood Zyprexa 5mg TID PRN for severe anxiety/agitation. Clomipranine 50mg at HS for OCD- Question if he actually needs it. Plan Patient on 15 minute checks for safety. Admitted to [facility]. CV. Work with treatment team to do collateral. Patient has no OP psychiatrist. Re-start all home meds with lower dose and titrate to therapeutic level. Will order VPA and [place] levels in next couple of days. 09/28: increasing olanzapine and trazodone p.r.n. dosing for anxiety and sleep while he reestablishes on medications Reason for continued inpatient stay Substantial Risk for: rapid decompensation Time Spent With Patient Time: Total time managing care of this patient today ____ minutes.
[2025-09-28 08:30] VITALS: BP 147/73; PULSE 73; RESP 18; TEMP 36.4; O2SAT 98
[2025-09-28 14:05] VITALS: BP 125/68; PULSE 76
[2025-09-28 20:00] VITALS: BP 116/68; PULSE 67; TEMP 36.7; O2SAT 98
[2025-09-28 21:48] VITALS: BP 116/68; PULSE 67
--- NOTE | 2025-09-29 07:58 | HO.PSYCHPN ---
Subjective Subjective Date of Service: 09/29/25 Reason For Visit: decompensation Interim History: Met with patient. Discussed with Nursing. reports anxiety and depression remain problematic. Reports he has been having visual hallucinations today and reports that has happened in the past if his ammonia levels have been high. Will place order for comprehensive metabolic panel and ammonia level. Is pleasant with staff. Not in distress. Sleep okay. Medication Compliance: Yes Side effects from medications: No Attending Groups: Intermittent Review of Systems Acute medical concerns: No Review of Systems Review of Systems nothing acute Mental Status Exam Mental Status Exam Narrative: pleasant. Engaged. Hospital clothing. Fair self-care . Less Anxious. Endorses depression. No SI. No HI. No agitation. No delusions. Reports visual hallucinations. Insight and judgment good Diagnostics Vital Signs (24Hr): Vital Signs - 24 hr 09/28/25 08:30 09/28/25 14:05 09/28/25 20:00 Temperature 97.5 F 98.1 F Pulse Rate 73 76 67 Respiratory Rate 18 Blood Pressure 147/73 H 125/68 116/68 Pulse Oximetry 98 98 Oxygen Delivery Method Room Air Room Air 09/28/25 21:48 Temperature Pulse Rate 67 Respiratory Rate Blood Pressure 116/68 Pulse Oximetry Oxygen Delivery Method BMI result Body Mass Index 31.6 Labs 09/26/25 20:04 09/29/25 08:49 Medications Medications Current Medications Acetaminophen (Acetaminophen 325 Mg Tablet) 650 mg PO Q6H PRN PRN Reason: Headache/Pain, Scale 1-10 Al Hydroxide/Mg Hydroxide (Magnesium Hydrox/Alum Hydrox 30 Ml Oral.Susp) 30 ml PO Q6H PRN PRN Reason: Heartburn/Nausea Amlodipine Besylate (Amlodipine Besylate 5 Mg Tablet) 5 mg PO DAILY YOBANI; Protocol Last Admin: 09/28/25 08:45 Dose: 5 mg Clomipramine HCl (Clomipramine Hcl 25 Mg Capsule) 50 mg PO BEDTIME YOBANI Last Admin: 09/28/25 21:47 Dose: 50 mg Divalproex Sodium (Divalproex Sodium 250 Mg Tablet.) 750 mg PO BEDTIME YOBANI Last Admin: 09/28/25 21:51 Dose: 750 mg Hydroxyzine HCl (Hydroxyzine Hcl 25 Mg Tablet) 25 mg PO Q6H PRN PRN Reason: mild anxiety Last Admin: 09/28/25 12:03 Dose: 25 mg [place] Carbonate ([place] Carbonate Er 300 Mg Tablet.Er) 600 mg PO BEDTIME YOBANI Last Admin: 09/28/25 21:50 Dose: 600 mg Magnesium Hydroxide (Milk Of Magnesia 30 Ml Oral.Susp) 30 ml PO DAILY PRN PRN Reason: Constipation Melatonin (Melatonin 3 Mg Tablet) 9 mg PO BEDTIME YOBANI Last Admin: 09/28/25 21:49 Dose: 9 mg Mirtazapine (Mirtazapine 15 Mg Tablet) 15 mg PO BEDTIME YOBANI Last Admin: 09/28/25 21:50 Dose: 15 mg Naproxen (Naproxen 500 Mg Tablet) 500 mg PO Q12H PRN On Hold: 09/27/25 15:47 Comment: Order held by Process Transfer PRN Reason: Knee and shoulder pain Nicotine (Nicotine 21 Mg Patch.Td24) 21 mg TRANSDERMA DAILY PRN PRN Reason: smoking cessation Nicotine Polacrilex (Nicotine Polacrilex 2 Mg Gum) 4 mg BUCCAL Q2H PRN PRN Reason: Nicotine Cravings Olanzapine (Olanzapine 10 Mg Tablet) 10 mg PO TID PRN PRN Reason: agitation Last Admin: 09/28/25 17:18 Dose: 10 mg Propranolol HCl (Propranolol Hcl 20 Mg Tablet) 20 mg PO TID YOBANI; Protocol Last Admin: 09/28/25 21:48 Dose: 20 mg Trazodone HCl (Trazodone Hcl 100 Mg Tablet) 200 mg PO BEDTIME YOBANI Last Admin: 09/28/25 21:50 Dose: 200 mg Trazodone HCl (Trazodone Hcl 50 Mg Tablet) 50 mg PO BEDTIME PRN PRN Reason: Insomnia Last Admin: 09/28/25 23:48 Dose: 50 mg Allergies Allergies Allergy/AdvReac Type Severity Reaction Status Date / Time duloxetine (From CYMBALTA) Allergy Unknown RASH Verified 09/26/25 19:59 shrimp Allergy Anaphylaxis Verified 09/26/25 19:59 Assessment & Plan Assessment & Plan (1) Bipolar disorder, now depressed: Qualifiers: Current episode severity: unspecified Qualified Code(s): F31.30 - Bipolar disorder, current episode depressed, mild or moderate severity, unspecified Status: Acute Code(s): F31.30 - Bipolar disorder, current episode depressed, mild or moderate severity, unspecified (2) PTSD (post-traumatic stress disorder): Status: Acute Code(s): F43.10 - Post-traumatic stress disorder, unspecified (3) Suicidal ideation: Status: Acute Code(s): R45.851 - Suicidal ideations (4) Hypertension: Status: Acute Code(s): I10 - Essential (primary) hypertension Plan HPI: Pt is a 50 year old , Bilingual speaking male with hx of HTN, bipolar, PTSD who is assessed by the CARE Team at [facility] after he self presents reporting medication noncompliance x2 weeks due to missing his outpatient appointments. He reports being dropped by his providers, thus being unable to refill his prescriptions. Formulation/clinical reasoning: No assess to meds. Off meds x2 weeks. Not FLU with appoitnemnt. Decompensation, increased in depression, anxiety and SI. Given Bipolar hx and PTSD, HTN, patient would benefit to be in restrictive environment for his own safety, medication restart, learning coping skills, and refer patient back to outpatient psychiatric services aftercare Hospital course: 09/27/25: Restart all meds but lower dose of [place] 600mg at HS. Will titrate up to 1,200mg in next couple of days as home dose. He does not want to continue with Latuda as it is complicated with food intake which bothers him. In the past, he already had thoughts of stop taking it back and forth. He is aware that we will not continue with Ativan. Propranonol 20mg BID for anxiety Norvasc 5mg daily for HTN Depakote 750mg at HS for mood Zyprexa 5mg TID PRN for severe anxiety/agitation. Clomipranine 50mg at HS for OCD- Question if he actually needs it. Plan Patient on 15 minute checks for safety. Admitted to . CV. Work with treatment team to do collateral. Patient has no OP psychiatrist. Re-start all home meds with lower dose and titrate to therapeutic level. Will order VPA and [place] levels in next couple of days. 09/28: increasing olanzapine and trazodone p.r.n. dosing for anxiety and sleep while he reestablishes on medications 09/29/2025: No changes to current regimen. Will order CMP and ammonia level as patient reports he can sometimes get visual hallucinations when ammonia level has been elevated in the past Reason for continued inpatient stay Substantial Risk for: inability to function Time Spent With Patient Time: Total time managing care of this patient today ____ minutes.
[2025-09-29 08:57] VITALS: BP 131/77; PULSE 61; RESP 18; TEMP 36.4; O2SAT 96
[2025-09-29 09:14] LABS: Alanine Aminotransferase 21 U/L (0-40); Albumin Level 4.5 g/dL (3.5-5.0); Alkaline Phosphatase 80 U/L (39-117); Anion Gap 15 (12-20); Aspartate Amino Transferase 20 U/L (5-37); Blood Urea Nitrogen 13 mg/dL (9-16); Calcium 9.4 mg/dL (8.4-10.2); Carbon Dioxide 26 mmol/L (22-29); Chloride 104 mmol/L (96-108); Cholesterol 150 mg/dL (<200); Creatinine Clr Calc Pharmacy 114.8; Estimated Glomerular Filt Rate > 60; HDL Cholesterol 25 mg/dL (>40); Potassium 4.8 mmol/L (3.3-5.1); Sodium 140 mmol/L (135-145); Total Protein 7.7 g/dL (6.5-8.0); Triglycerides 120 mg/dL (<150)
[2025-09-29 14:58] VITALS: BP 121/89; PULSE 69
[2025-09-29 20:35] VITALS: BP 126/80; PULSE 62; RESP 18; TEMP 36.2; O2SAT 98
[2025-09-29 20:46] VITALS: BP 126/80; PULSE 62
[2025-09-30 08:00] VITALS: BP 131/76; PULSE 66; RESP 18; TEMP 36; O2SAT 98
--- NOTE | 2025-09-30 08:38 | P.CONHOSP_ITS ---
History of Present Illness Data of Consult Service Date: 09/30/25 Primary Care Provider: Unknown Physician HPI Reason for consult: Medical H&P 50-year-old male with a past medical history of bipolar disorder, PTSD, hypertension, anxiety, presented to the emergency room for suicidal ideation. Patient has not been taking meds for 2 weeks. Initial workup revealed no leukocytosis, no anemia. No electrolyte imbalances, no evidence of kidney or renal dysfunction. Urine without evidence of infection. U tox positive for marijuana. On exam he denies any medical concerns. He is apologetic that he has not been taking his medications. Review of Systems 2 Review of Systems: Denies any shortness of breath, chest pain, headaches, dysuria, abdominal pain or discomfort, nausea, vomiting or diarrhea. Denies fever or chills. [facility] Medical History Suicidal ideation Post traumatic stress disorder Alcohol use disorder Cocaine use disorder Hypertension Anxiety Depression Social History Household Members: None Household Members Other:: sober living Housing: Other Housing Other:: Sob House, [facility] Do you presently have visiting nurse or other home services: No Alcohol intake: never Comment: not a high fall risk patient Patient Tobacco Use Status: Current everyday Tobacco user Tobacco use type: Cigarette Cigarettes Per Day: 12 Years Smoked: 18 Smoked in Last 30 Days: Yes e-Cigarette/Vaping Use: Former Use Patient Interested in Nicotine Replacement: Yes (patch) Patient Given Instructions on How to Stop Smoking: No (declined) Second Hand Smoke Exposure: Yes (people smoking around him) Use of substances other than those prescribed or required for medical reasons: Yes Substance Use Type: Marijuana Currently Displaying Signs/Symptoms of Drug Intoxication Withdrawal: No Have you been hit, kicked, punched, or otherwise hurt by someone within the past year? If so, by whom?: No Do you feel safe in your current relationship?: No Current Relationship Is there a partner from a previous relationship who is making you feel unsafe now?: No Are you made to feel afraid or neglected: No Advance Directives: Yes Advance Directives Information Provided: No Advance Directives on File: Yes Advance Directives Date on File: 01/13/21 Do you have thoughts of harming others: None Do you have a plan to hurt others: No Plan Recently lost weight without trying: No Eating poorly because of decreased appetite: No Nutrition Risks: No Nutritional Risk Poor oral hygiene: No service: No Sexual orientation: Straight/Heterosexual Meds Allergies Allergy/AdvReac Type Severity Reaction Status Date / Time duloxetine (From CYMBALTA) Allergy Unknown RASH Verified 09/26/25 19:59 shrimp Allergy Anaphylaxis Verified 09/26/25 19:59 Active Medications: Current Medications Acetaminophen (Acetaminophen 325 Mg Tablet) 650 mg PO Q6H PRN PRN Reason: Headache/Pain, Scale 1-10 Al Hydroxide/Mg Hydroxide (Magnesium Hydrox/Alum Hydrox 30 Ml Oral.Susp) 30 ml PO Q6H PRN PRN Reason: Heartburn/Nausea Amlodipine Besylate (Amlodipine Besylate 5 Mg Tablet) 5 mg PO DAILY [facility]; Protocol Last Admin: 09/30/25 08:34 Dose: 5 mg Clomipramine HCl (Clomipramine Hcl 25 Mg Capsule) 50 mg PO BEDTIME YOBANI Last Admin: 09/29/25 20:43 Dose: 50 mg Divalproex Sodium (Divalproex Sodium 250 Mg Tablet.Dr) 750 mg PO BEDTIME YOBANI Last Admin: 09/29/25 20:45 Dose: 750 mg Hydroxyzine HCl (Hydroxyzine Hcl 25 Mg Tablet) 25 mg PO Q6H PRN PRN Reason: mild anxiety Last Admin: 09/30/25 01:04 Dose: 25 mg [place] Carbonate ([place] Carbonate Er 300 Mg Tablet.Er) 600 mg PO BEDTIME YOBANI Last Admin: 09/29/25 20:45 Dose: 600 mg Magnesium Hydroxide (Milk Of Magnesia 30 Ml Oral.Susp) 30 ml PO DAILY PRN PRN Reason: Constipation Melatonin (Melatonin 3 Mg Tablet) 9 mg PO BEDTIME YOBANI Last Admin: 09/29/25 20:44 Dose: 9 mg Mirtazapine (Mirtazapine 15 Mg Tablet) 15 mg PO BEDTIME YOBANI Last Admin: 09/29/25 20:44 Dose: 15 mg Naproxen (Naproxen 500 Mg Tablet) 500 mg PO Q12H PRN On Hold: 09/27/25 15:47 Comment: Order held by Process Transfer PRN Reason: Knee and shoulder pain Nicotine (Nicotine 21 Mg Patch.Td24) 21 mg TRANSDERMA DAILY PRN PRN Reason: smoking cessation Nicotine Polacrilex (Nicotine Polacrilex 2 Mg Gum) 4 mg BUCCAL Q2H PRN PRN Reason: Nicotine Cravings Olanzapine (Olanzapine 10 Mg Tablet) 10 mg PO TID PRN PRN Reason: agitation Last Admin: 09/30/25 01:06 Dose: 10 mg Propranolol HCl (Propranolol Hcl 20 Mg Tablet) 20 mg PO TID YOBANI; Protocol Last Admin: 09/30/25 08:35 Dose: 20 mg Trazodone HCl (Trazodone Hcl 100 Mg Tablet) 200 mg PO BEDTIME YOBANI Last Admin: 09/29/25 20:42 Dose: 200 mg Trazodone HCl (Trazodone Hcl 50 Mg Tablet) 50 mg PO BEDTIME PRN PRN Reason: Insomnia Last Admin: 09/29/25 23:18 Dose: 50 mg Home Medications ?Medication ?Instructions ?Recorded ?Confirmed ?Last Taken ?Type clomipramine 50 mg capsule 50 mg PO BEDTIME 09/27/25 1 11/27/24 Unknown History lurasidone 40 mg tablet 40 mg PO BEDTIME depressive 09/27/25 09/27/25 Unknown History disorder trazodone 50 mg tablet 50 mg PO BEDTIME PRN insomni a 09/27/25 09/27/25 Unknown History Physical Exam 2 Vital Signs and Narrative: Vital Signs: Last Vital Signs Temp 97.2 F 09/29/25 20:35 Pulse 62 09/29/25 20:46 Resp 18 09/29/25 20:35 BP 126/80 09/29/25 20:46 Pulse Ox 98 09/29/25 20:35 O2 Del Method Room Air 09/29/25 20:35 BMI result Body Mass Index 31.6 Alert and oriented X3, calm and cooperative. Answers questions. Neuro: CN II-X11 intact, no deficits, visual acuity intact EYES: PERRLA, EOM intact ENT: Hearing intact, MMM Cardiac: S1 S2 RRR, No ectopy Pulmonary: lungs clear to auscultation, No increased WOB. Abdominal: BS active in all 4 quadrants, no guarding or tenderness MSK: Strength 5/5 upper and lower extremities : Deferred Extremities: No edema in lower extremities Psych: Mood stable, Quiet and cooperative. Skin: Warm and dry, Intact Results Labs 09/26/25 20:04 09/30/25 08:24 Labs: Laboratory Results - last 24 hr 09/29/25 08:49 Anion Gap 15 Estim Creat Clear Calc 114.8 Estimated GFR > 60 Random Glucose 107 Estimat Average Glucose 105 Hemoglobin A1c % 5.3 Calcium 9.4 Total Bilirubin 0.8 AST 20 ALT 21 Alkaline Phosphatase 80 Total Protein 7.7 Albumin 4.5 Triglycerides 120 Cholesterol 150 LDL Cholesterol, Calc 101 H HDL Cholesterol 25 L TSH 0.91 Assessment and Plan (1) Hypertension: Status: Acute Plan 50-year-old male with past medical history as listed below presented to emergency room with vague suicidal ideation. He is admitted to inpatient psych for further stabilization. Bipolar disorder/PTSD/suicide ideations/anxiety Treatment per psychiatric team Hypertension Continue amlodipine Blood pressure stable on review Thank you for allowing me to participate in the care of this patient. Will follow with you, please notify medical provider with any changes in condition or concerns.
[2025-09-30 08:46] LABS: Ammonia 48 umol/L (13-55)
[2025-09-30 08:51] LABS: Alanine Aminotransferase 23 U/L (0-40); Albumin Level 4.8 g/dL (3.5-5.0); Alkaline Phosphatase 87 U/L (39-117); Anion Gap 13 (12-20); Aspartate Amino Transferase 22 U/L (5-37); Blood Urea Nitrogen 13 mg/dL (9-16); Calcium 10.1 mg/dL (8.4-10.2); Carbon Dioxide 30 mmol/L (22-29); Chloride 102 mmol/L (96-108); Creatinine Clr Calc Pharmacy 122.6; Estimated Glomerular Filt Rate > 60; Potassium 4.9 mmol/L (3.3-5.1); Sodium 140 mmol/L (135-145); Total Protein 8.1 g/dL (6.5-8.0)
--- NOTE | 2025-09-30 09:50 | P.PNPSI_ITS ---
Subjective Subjective Date of Service: 09/30/25 Reason For Visit: decompensation Subjective Notes: Conditional Voluntary Healthcare Proxy: No Guardianship: No Medical Problems Affecting Mental Status: No Interim History: Pt reports several sx of anxiety. He requests benzodiazepines. Reports AH,VH- sees children, regan, increase in dreaming. Reports cannabis helps anxiety. Worries Depakote will cause SE, by hx ammonia was increased he reports-ammonia level today WNL. Reviewed regime for changes. Medication Compliance: Yes Side effects from medications: No Attending Groups: Intermittent Review of Systems Acute medical concerns: No Medical Review of Systems: unchanged Review of Systems Review of Systems denied today Mental Status Exam Mental Status Exam Patient Appearance: Appropriate Patient Orientation: Person, Place, Time and Situation Level of Consciousness: Alert Patient Behavior: Talkative Mood Description: Depressed and Anxious Affect Description: Flat Patient Cognition Impaired: No Ability to Follow Directions: Good Speech Pattern: Spontaneous Speech Memory Description: Intact Hallucinations: Auditory and Visual Delusions: Paranoid Ideation Perceptual Disturbances: Derealization Thought Process: Rumination Thought Content: positive for Circumstantial, positive for Perseveration and positive for Suicidal Ideation Depressive Symptoms: Thoughts of /Suicide Judgement: Fair Diagnostics Vital Signs (24Hr): Vital Signs - 24 hr 09/29/25 14:58 09/29/25 20:35 09/29/25 20:46 Temperature 97.2 F Pulse Rate 69 62 62 Respiratory Rate 18 Blood Pressure 121/89 126/80 126/80 Pulse Oximetry 98 Oxygen Delivery Method Room Air 09/30/25 08:00 Temperature 96.8 F Pulse Rate 66 Respiratory Rate 18 Blood Pressure 131/76 Pulse Oximetry 98 Oxygen Delivery Method Room Air BMI result Body Mass Index 31.6 Labs 10/01/25 00:21 10/01/25 00:21 Labs: Laboratory Results - last 48 hr 09/29/25 09/30/25 08:49 08:24 Sodium 140 140 Potassium 4.8 4.9 Chloride 104 102 Carbon Dioxide 26 30 H Anion Gap 15 13 BUN 13 13 Creatinine 0.94 0.88 Estim Creat Clear Calc 114.8 122.6 Estimated GFR > 60 > 60 Random Glucose 107 101 Estimat Average Glucose 105 Hemoglobin A1c % 5.3 Calcium 9.4 10.1 D Total Bilirubin 0.8 0.8 AST 20 22 ALT 21 23 Alkaline Phosphatase 80 87 Ammonia 48 Total Protein 7.7 8.1 H Albumin 4.5 4.8 Triglycerides 120 Cholesterol 150 LDL Cholesterol, Calc 101 H HDL Cholesterol 25 L TSH 0.91 Medications Medications Current Medications Acetaminophen (Acetaminophen 325 Mg Tablet) 650 mg PO Q6H PRN PRN Reason: Headache/Pain, Scale 1-10 Al Hydroxide/Mg Hydroxide (Magnesium Hydrox/Alum Hydrox 30 Ml Oral.Susp) 30 ml PO Q6H PRN PRN Reason: Heartburn/Nausea Amlodipine Besylate (Amlodipine Besylate 5 Mg Tablet) 5 mg PO DAILY YOBANI; Protocol Last Admin: 09/30/25 08:34 Dose: 5 mg Clomipramine HCl (Clomipramine Hcl 25 Mg Capsule) 50 mg PO BEDTIME [facility] Last Admin: 09/29/25 20:43 Dose: 50 mg Divalproex Sodium (Divalproex Sodium 250 Mg Tablet.Dr) 750 mg PO BEDTIME [facility]OB[facility] Last Admin: 09/29/25 20:45 Dose: 750 mg Hydroxyzine HCl (Hydroxyzine Hcl 25 Mg Tablet) 25 mg PO Q6H PRN PRN Reason: mild anxiety Last Admin: 09/30/25 01:04 Dose: 25 mg [place] Carbonate ([place] Carbonate Er 300 Mg Tablet.Er) 600 mg PO BEDTIME [facility]OB[facility] Last Admin: 09/29/25 20:45 Dose: 600 mg Magnesium Hydroxide (Milk Of Magnesia 30 Ml Oral.Susp) 30 ml PO DAILY PRN PRN Reason: Constipation Melatonin (Melatonin 3 Mg Tablet) 9 mg PO BEDTIME [facility] Last Admin: 09/29/25 20:44 Dose: 9 mg Mirtazapine (Mirtazapine 15 Mg Tablet) 15 mg PO BEDTIME [facility] Last Admin: 09/29/25 20:44 Dose: 15 mg Naproxen (Naproxen 500 Mg Tablet) 500 mg PO Q12H PRN On Hold: 09/27/25 15:47 Comment: Order held by Process Transfer PRN Reason: Knee and shoulder pain Nicotine (Nicotine 21 Mg Patch.Td24) 21 mg TRANSDERMA DAILY PRN PRN Reason: smoking cessation Nicotine Polacrilex (Nicotine Polacrilex 2 Mg Gum) 4 mg BUCCAL Q2H PRN PRN Reason: Nicotine Cravings Olanzapine (Olanzapine 10 Mg Tablet) 10 mg PO TID PRN PRN Reason: agitation Last Admin: 09/30/25 01:06 Dose: 10 mg Propranolol HCl (Propranolol Hcl 20 Mg Tablet) 20 mg PO TID YOBANI; Protocol Last Admin: 09/30/25 08:35 Dose: 20 mg Trazodone HCl (Trazodone Hcl 100 Mg Tablet) 200 mg PO BEDTIME [facility] Last Admin: 09/29/25 20:42 Dose: 200 mg Trazodone HCl (Trazodone Hcl 50 Mg Tablet) 50 mg PO BEDTIME PRN PRN Reason: Insomnia Last Admin: 09/29/25 23:18 Dose: 50 mg Allergies Allergies Allergy/AdvReac Type Severity Reaction Status Date / Time duloxetine (From CYMBALTA) Allergy Unknown RASH Verified 09/26/25 19:59 shrimp Allergy Anaphylaxis Verified 09/26/25 19:59 Assessment & Plan Assessment & Plan (1) Bipolar disorder, now depressed: Qualifiers: Current episode severity: unspecified Qualified Code(s): F31.30 - Bipolar disorder, current episode depressed, mild or moderate severity, unspecified Status: Acute Code(s): F31.30 - Bipolar disorder, current episode depressed, mild or moderate severity, unspecified (2) PTSD (post-traumatic stress disorder): Status: Acute Code(s): F43.10 - Post-traumatic stress disorder, unspecified (3) Suicidal ideation: Status: Acute Code(s): R45.851 - Suicidal ideations (4) Hypertension: Status: Acute Code(s): I10 - Essential (primary) hypertension Plan HPI: Pt is a 50 year old , Bilingual speaking male with hx of HTN, bipolar, PTSD who is assessed by the CARE Team at [facility] after he self presents reporting medication noncompliance x2 weeks due to missing his outpatient appointments. He reports being dropped by his providers, thus being unable to refill his prescriptions. Formulation/clinical reasoning: No assess to meds. Off meds x2 weeks. Not FLU with appoitnemnt. Decompensation, increased in depression, anxiety and SI. Given Bipolar hx and PTSD, HTN, patient would benefit to be in restrictive environment for his own safety, medication restart, learning coping skills, and refer patient back to outpatient psychiatric services aftercare Hospital course: 09/27/25: Restart all meds but lower dose of [place] 600mg at HS. Will titrate up to 1,200mg in next couple of days as home dose. He does not want to continue with Latuda as it is complicated with food intake which bothers him. In the past, he already had thoughts of stop taking it back and forth. He is aware that we will not continue with Ativan. Propranonol 20mg BID for anxiety Norvasc 5mg daily for HTN Depakote 750mg at HS for mood Zyprexa 5mg TID PRN for severe anxiety/agitation. Clomipranine 50mg at HS for OCD- Question if he actually needs it. Plan Patient on 15 minute checks for safety. Admitted to . CV. Work with treatment team to do collateral. Patient has no OP psychiatrist. Re-start all home meds with lower dose and titrate to therapeutic level. Will order VPA and [place] levels in next couple of days. 09/28: increasing olanzapine and trazodone p.r.n. dosing for anxiety and sleep while he reestablishes on medications 09/29/2025: No changes to current regimen. Will order CMP and ammonia level as patient reports he can sometimes get visual hallucinations when ammonia level has been elevated in the past 09/30/25: Reviewed diagnostics with pt and med regime. Increase [place] to 900 mg HS Olanzapine 10 mg bid Increase Trazodone to 250 mg HS Informed Consent: understands Reason for continued inpatient stay Substantial Risk for: rapid decompensation Time Spent With Patient Time: Total time managing care of this patient today ____ minutes.
[2025-09-30 15:57] VITALS: BP 143/93; PULSE 73
[2025-09-30 20:00] VITALS: BP 137/81; PULSE 60; RESP 18; TEMP 36.9; O2SAT 96
[2025-09-30 20:02] VITALS: BP 153/86; PULSE 56
[2025-09-30] MEDS: Milk of Magnesia 30 ML ORAL.SUSP PO (20:04)
--- NOTE | 2025-10-01 00:10 | PM.EVENT ---
Event Note Date of Service: 10/01/25 Event Note: Alerted the patient was complaining of 10/10 generalized abdominal pain. Vital signs stable. Patient is seen bedside still complaining of 10/10 abdominal pain however appears comfortable. He reports constipation however last bowel movement was small yesterday. No rectal bleeding, hematochezia or vomiting. He does report nausea. Reports he has had chronic abdominal pain for the past month but this is worse. No history of pancreatitis. On exam he is tender throughout, worse in the epigastric/left upper quadrant. Bowel sounds are hypoactive. Abdomen is soft, no guarding. Stat abdominopelvic CT, CBC, CMP and lipase ordered. Plan to follow pending results. Time Spent With Patient Time: Total time managing care of this patient today ____ minutes.
[2025-10-01 00:25] LABS: MANUAL DIFF FLAG NO
[2025-10-01 00:34] LABS: Hematocrit 49.6 % (42.0-52.0); Hemoglobin 16.5 g/dl (14.0-18.0); Imm Gran Abs Auto 0.06 X10*3/uL (0.00-0.03); Imm Gran Pct Auto 0.4 % (0.0-0.4); Lymphocytes Absolute Auto 4.6 X10*3/uL (1.2-4.9); Mean Corpuscular HGB Conc 33.3 g/dl (31.0-36.0); Mean Corpuscular Hemoglobin 30.2 pg (27.0-33.0); Mean Corpuscular Volume 90.7 fL (80.0-98.0); NRBC Abs Auto 0.000 X10*3/uL (0.0-0.012); NRBC Pct Auto 0.0 /100WBC (0.0-0.2); Platelet Count 297 X10*3/uL (160-400); Red Blood Count 5.47 X10*6/uL (4.60-5.80); White Blood Count 15.8 X10*3/uL (4.8-10.8)
[2025-10-01 00:52] LABS: Alanine Aminotransferase 26 U/L (0-40); Albumin Level 4.8 g/dL (3.5-5.0); Alkaline Phosphatase 86 U/L (39-117); Anion Gap 13 (12-20); Aspartate Amino Transferase 23 U/L (5-37); Blood Urea Nitrogen 21 mg/dL (9-16); Calcium 10.7 mg/dL (8.4-10.2); Carbon Dioxide 30 mmol/L (22-29); Chloride 99 mmol/L (96-108); Creatinine Clr Calc Pharmacy 109.0; Estimated Glomerular Filt Rate > 60; Lipase 28 U/L (8-78); Potassium 4.9 mmol/L (3.3-5.1); Sodium 137 mmol/L (135-145); Total Protein 8.0 g/dL (6.5-8.0)
[2025-10-01 05:28] LABS: Ammonia 56 umol/L (13-55)
[2025-10-01 06:03] LABS: Appearance Urine Clear; Glucose Urine UA Negative (Negative); PH 7.5 (5.0-9.0); Specific Gravity - Urine <= 1.005 (1.005-1.025)
--- NOTE | 2025-10-01 06:34 | PC.NURSE ---
Shift Review, Patient started shift Alert and Orientated x2, Confused and forget full at time. As shift progressed s/p evening medications pt became more and more confused, almost going into other pts room, thinking that his relatives are still here. * Notified provider of pt's increasing confusion. Pt trying to go into wrong rooms, pt saying odd things ( asking for rice, wants his phone and EBT card), Pt states water on the floor and upon approach no water was found. -Provider ordered an ammonia level for am, UA and bladder scan (64ml) (as pt stated he was not urinating enough and felt like he was not putting it all out.-? could be causing confusion.) -PRN Atarax, Milk of Mag, and Zyprexa. *Pt also c/o abdominal pain during shift. RN assessed pt and bowel sounds found to be hypoactive, and tenderness upon palpation.Pt states he had a sm BM 09/30/25. Patient denies blood or diarrhea. Pt c/o nausea. Pt abdomen round and firm. -Provider ordered a CT of abdomen and labs.
--- NOTE | 2025-10-01 08:24 | P.PNIM_ITS ---
Subjective Subjective Date of Service: 10/01/25 Interval History: Patient seen for follow up abdominal pain. Patient is out of bed ambulating in the hallway. Reports that he has occasional dyspepsia and abdominal pain, reports that this is better. No abdominal pain at this time. Nursing reports increased confusion and delusional behavior last night. This morning he is more clear. Patient started on new psychotropic medications. Patient's blood pressure noted to be elevated, no fever noted. Review of Systems Denies any shortness of breath, chest pain, headaches, dysuria, abdominal pain or discomfort, nausea, vomiting or diarrhea. Denies fever or chills. Physical Exam 2 Exam: Exam: Alert and oriented X3, calm and cooperative. Answers questions. Neuro: CN II-X11 intact, no deficits, visual acuity intact EYES: PERRLA, EOM intact ENT: Hearing intact, MMM Cardiac: S1 S2 RRR, No ectopy Pulmonary: lungs clear to auscultation, No increased WOB. Abdominal: BS active in all 4 quadrants, no guarding or tenderness. Obese abdomen MSK: Strength 5/5 upper and lower extremities. Ambulating with steady gait : Deferred Extremities: No edema in lower extremities Psych: Mood stable, Quiet and cooperative. Skin: Warm and dry, Intact. Color within normal limits Vital Signs: Vital Signs: Last Vital Signs Temp 98.4 F 09/30/25 20:00 Pulse 56 09/30/25 20:02 Resp 18 09/30/25 20:00 BP 153/86 H 09/30/25 20:02 Pulse Ox 96 09/30/25 20:00 O2 Del Method Room Air 09/30/25 20:00 BMI result Body Mass Index 31.6 Objective Data Active Medications Acetaminophen (Acetaminophen 325 Mg Tablet) 650 mg PO Q6H PRN PRN Reason: Headache/Pain, Scale 1-10 Al Hydroxide/Mg Hydroxide (Magnesium Hydrox/Alum Hydrox 30 Ml Oral.Susp) 30 ml PO Q6H PRN PRN Reason: Heartburn/Nausea Amlodipine Besylate (Amlodipine Besylate 5 Mg Tablet) 5 mg PO DAILY YOBANI; Protocol Last Admin: 09/30/25 08:34 Dose: 5 mg Documented By: MAHESH Clomipramine HCl (Clomipramine Hcl 25 Mg Capsule) 50 mg PO BEDTIME YOBANI Last Admin: 09/30/25 20:00 Dose: 50 mg Documented By: JENNIFER Divalproex Sodium (Divalproex Sodium 250 Mg Tablet.Dr) 750 mg PO BEDTIME [facility] Last Admin: 09/30/25 19:57 Dose: 750 mg Documented By: JENNIFER Hydroxyzine HCl (Hydroxyzine Hcl 25 Mg Tablet) 25 mg PO Q6H PRN PRN Reason: mild anxiety Last Admin: 09/30/25 21:40 Dose: 25 mg Documented By: JENNIFER [place] Carbonate ([place] Carbonate Er 450 Mg Tablet.Er) 900 mg PO BEDTIME [facility] Last Admin: 09/30/25 19:59 Dose: 900 mg Documented By: JENNIFER Magnesium Hydroxide (Milk Of Magnesia 30 Ml Oral.Susp) 30 ml PO DAILY PRN PRN Reason: Constipation Last Admin: 09/30/25 20:04 Dose: 30 ml Documented By: JENNIFER Melatonin (Melatonin 3 Mg Tablet) 9 mg PO BEDTIME [facility] Last Admin: 09/30/25 19:58 Dose: 9 mg Documented By: JENNIFER Mirtazapine (Mirtazapine 15 Mg Tablet) 15 mg PO BEDTIME [facility] Last Admin: 09/30/25 19:59 Dose: 15 mg Documented By: JENNIFER Naproxen (Naproxen 500 Mg Tablet) 500 mg PO Q12H PRN On Hold: 09/27/25 15:47 Comment: Order held by Process Transfer PRN Reason: Knee and shoulder pain Nicotine (Nicotine 21 Mg Patch.Td24) 21 mg TRANSDERMA DAILY PRN PRN Reason: smoking cessation Nicotine Polacrilex (Nicotine Polacrilex 2 Mg Gum) 4 mg BUCCAL Q2H PRN PRN Reason: Nicotine Cravings Olanzapine (Olanzapine 10 Mg Tablet) 10 mg PO TID PRN PRN Reason: agitation Last Admin: 09/30/25 21:40 Dose: 10 mg Documented By: JENNIFER Olanzapine (Olanzapine 10 Mg Tablet) 10 mg PO BID [facility] Last Admin: 09/30/25 19:59 Dose: 10 mg Documented By: JENNIFER Polyethylene Glycol (Polyethylene Glycol 3350 17 Gm Powd.Pack) 17 gm PO DAILY PRN PRN Reason: Constipation Propranolol HCl (Propranolol Hcl 20 Mg Tablet) 20 mg PO TID [facility]; Protocol Last Admin: 09/30/25 20:02 Dose: 20 mg Documented By: JENNIFER Trazodone HCl (Trazodone Hcl 50 Mg Tablet) 250 mg PO BEDTIME YOBANI Last Admin: 09/30/25 20:01 Dose: 250 mg Documented By: JENNIFER Labs 10/01/25 00:21 10/01/25 00:21 Labs: Laboratory Results - last 24 hr 09/30/25 10/01/25 10/01/25 08:24 00:21 04:41 MCV 90.7 MCH 30.2 MCHC 33.3 RDW 12.2 Plt Count 297 MPV 9.2 L Immature Gran % (Auto) 0.4 Neut % (Auto) 62.5 Lymph % (Auto) 28.8 [place] % (Auto) 6.3 Eos % (Auto) 1.6 Baso % (Auto) 0.4 Lymph # (Auto) 4.6 [place] # (Auto) 1.0 Eos # (Auto) 0.3 Baso # (Auto) 0.1 Abs Immat Gran (auto) 0.06 H Absolute Neuts (auto) 9.9 H Absolute Nucleated RBC 0.000 Nucleated RBC % (auto) 0.0 Anion Gap 13 13 Estim Creat Clear Calc 122.6 109.0 Estimated GFR > 60 > 60 Random Glucose 101 112 Calcium 10.1 D 10.7 H Total Bilirubin 0.8 0.6 AST 22 23 ALT 23 26 Alkaline Phosphatase 87 86 Ammonia 48 56 H Total Protein 8.1 H 8.0 Albumin 4.8 4.8 Lipase 28 Urine Color Urine Appearance Urine pH Ur Specific [place] Urine Protein Urine Glucose (UA) Urine Ketones Urine Blood Urine Nitrite Ur Leukocyte Esterase 10/01/25 05:45 MCV MCH MCHC RDW Plt Count MPV Immature Gran % (Auto) Neut % (Auto) Lymph % (Auto) [place] % (Auto) Eos % (Auto) Baso % (Auto) Lymph # (Auto) [place] # (Auto) Eos # (Auto) Baso # (Auto) Abs Immat Gran (auto) Absolute Neuts (auto) Absolute Nucleated RBC Nucleated RBC % (auto) Anion Gap Estim Creat Clear Calc Estimated GFR Random Glucose Calcium Total Bilirubin AST ALT Alkaline Phosphatase Ammonia Total Protein Albumin Lipase Urine Color Yellow Urine Appearance Clear Urine pH 7.5 Ur Specific [place] <= 1.005 Urine Protein Negative Urine Glucose (UA) Negative Urine Ketones Negative Urine Blood Negative Urine Nitrite Negative Ur Leukocyte Esterase Negative Imaging CT scan - abdomen: Radiologist's impression: The lung bases are clear. No ureteral stones. No hydronephrosis. Tiny nonobstructing left renal stones. Spleen, adrenal glands, pancreas, liver and gallbladder are unremarkable. No bowel obstruction, pneumoperitoneum, or pneumatosis. Fat containing umbilical hernia. Pelvic contents unremarkable. Normal appendix. No ascites. Multilevel degenerative change of the lumbar spine. Anterior spurring and fusion of the SI joints. No acute findings. Assessment and Plan (1) Generalized abdominal pain: Status: Acute Plan 50-year-old male with past medical history as listed below presented to emergency room with vague suicidal ideation. He is admitted to inpatient psych for further stabilization. Bipolar disorder/PTSD/suicide ideations/anxiety Treatment per psychiatric team Generalized abdominal pain On exam he reports his abdominal pain has resolved. CT negative, lipase negative, no anemia, slight leukocytosis. No fever or tachycardia. Will repeat CBC in the morning Liver enzymes within normal limits. Urine with no evidence of infection Pepcid 20 mg b.i.d. for 1 week Avoid constipation-bowel meds ordered Mental status changes Possibly due to increases in olanzapine, trazodone and lithium yesterday Ammonia level 56- 1 time dose of lactulose Hypertension Increase amlodipine to 10 mg Blood pressures elevated on review Thank you for allowing me to participate in the care of this patient. Will follow with you, please notify medical provider with any changes in condition or concerns. Quality Stroke Does the patient have a stroke diagnosis?: No VTE Prior VTE?: No VTE Risk Level:: Medical - low VTE Device Contraindication: Treatment Not Indicated VTE Drug Contraindication: Treatment Not Indicated
[2025-10-01 09:06] VITALS: BP 170/98; PULSE 99; RESP 16; TEMP 36.1; O2SAT 99
[2025-10-01 10:00] VITALS: BP 150/96; PULSE 96
--- NOTE | 2025-10-01 10:06 | P.PNPSI_ITS ---
Subjective Subjective Date of Service: 10/01/25 Reason For Visit: decompensation Subjective Notes: Conditional Voluntary Healthcare Proxy: No Guardianship: No Medical Problems Affecting Mental Status: No Interim History: Ammonia level 56 today. Received Lactulose from hospitalist team. Pt correlates this to Depakote-will decrease dosing to 500 mg HS beginning this evening. Continued to report anxiety. Trial dose of Chlorpromazine 50 mg. Pt sleeping this afternoon when tw went to meet with him. Will hold on other changes as Trazodone, [place] and Olanzapine were adjusted on 08/30. Team report episode of ?delusional sx, abdominal pain last evening- UA WNL-given Oxycodone x 1 Medication Compliance: Yes Side effects from medications: Yes (??) Attending Groups: No Review of Systems as noted Medical Review of Systems: unchanged Review of Systems Review of Systems Yes Unobtainable due to mental status Mental Status Exam Mental Status Exam Patient Behavior: Asleep Diagnostics Vital Signs (24Hr): Vital Signs - 24 hr 09/30/25 15:57 09/30/25 20:00 09/30/25 20:02 Temperature 98.4 F Pulse Rate 73 60 56 Respiratory Rate 18 Blood Pressure 143/93 H 137/81 153/86 H Pulse Oximetry 96 Oxygen Delivery Method Room Air 10/01/25 09:06 Temperature 97 F Pulse Rate 99 Respiratory Rate 16 Blood Pressure 170/98 H Pulse Oximetry 99 Oxygen Delivery Method Room Air BMI result Body Mass Index 31.6 Labs 10/01/25 00:21 10/01/25 00:21 Labs: Laboratory Results - last 48 hr 09/29/25 09/30/25 10/01/25 08:49 08:24 00:21 WBC 15.8 H RBC 5.47 Hgb 16.5 Hct 49.6 MCV 90.7 MCH 30.2 MCHC 33.3 RDW 12.2 Plt Count 297 MPV 9.2 L Immature Gran % (Auto) 0.4 Neut % (Auto) 62.5 Lymph % (Auto) 28.8 [place] % (Auto) 6.3 Eos % (Auto) 1.6 Baso % (Auto) 0.4 Lymph # (Auto) 4.6 [place] # (Auto) 1.0 Eos # (Auto) 0.3 Baso # (Auto) 0.1 Abs Immat Gran (auto) 0.06 H Absolute Neuts (auto) 9.9 H Absolute Nucleated RBC 0.000 Nucleated RBC % (auto) 0.0 Sodium 140 137 Potassium 4.9 4.9 Chloride 102 99 Carbon Dioxide 30 H 30 H Anion Gap 13 13 BUN 13 21 H Creatinine 0.88 0.99 Estim Creat Clear Calc 122.6 109.0 Estimated GFR > 60 > 60 Random Glucose 101 112 Estimat Average Glucose 105 Hemoglobin A1c % 5.3 Calcium 10.1 D 10.7 H Total Bilirubin 0.8 0.6 AST 22 23 ALT 23 26 Alkaline Phosphatase 87 86 Ammonia 48 Total Protein 8.1 H 8.0 Albumin 4.8 4.8 Lipase 28 Urine Color Urine Appearance Urine pH Ur Specific [place] Urine Protein Urine Glucose (UA) Urine Ketones Urine Blood Urine Nitrite Ur Leukocyte Esterase 10/01/25 10/01/25 04:41 05:45 WBC RBC Hgb Hct MCV MCH MCHC RDW Plt Count MPV Immature Gran % (Auto) Neut % (Auto) Lymph % (Auto) [place] % (Auto) Eos % (Auto) Baso % (Auto) Lymph # (Auto) [place] # (Auto) Eos # (Auto) Baso # (Auto) Abs Immat Gran (auto) Absolute Neuts (auto) Absolute Nucleated RBC Nucleated RBC % (auto) Sodium Potassium Chloride Carbon Dioxide Anion Gap BUN Creatinine Estim Creat Clear Calc Estimated GFR Random Glucose Estimat Average Glucose Hemoglobin A1c % Calcium Total Bilirubin AST ALT Alkaline Phosphatase Ammonia 56 H Total Protein Albumin Lipase Urine Color Yellow Urine Appearance Clear Urine pH 7.5 Ur Specific [place] <= 1.005 Urine Protein Negative Urine Glucose (UA) Negative Urine Ketones Negative Urine Blood Negative Urine Nitrite Negative Ur Leukocyte Esterase Negative Medications Medications Current Medications Acetaminophen (Acetaminophen 325 Mg Tablet) 650 mg PO Q6H PRN PRN Reason: Headache/Pain, Scale 1-10 Last Admin: 10/01/25 09:12 Dose: 650 mg Al Hydroxide/Mg Hydroxide (Magnesium Hydrox/Alum Hydrox 30 Ml Oral.Susp) 30 ml PO Q6H PRN PRN Reason: Heartburn/Nausea Amlodipine Besylate (Amlodipine Besylate 5 Mg Tablet) 5 mg PO DAILY YOBANI; Protocol Last Admin: 10/01/25 09:06 Dose: 5 mg Clomipramine HCl (Clomipramine Hcl 25 Mg Capsule) 50 mg PO BEDTIME [facility] Last Admin: 09/30/25 20:00 Dose: 50 mg Divalproex Sodium (Divalproex Sodium 250 Mg Tablet.Dr) 750 mg PO BEDTIME [facility] Last Admin: 09/30/25 19:57 Dose: 750 mg Hydroxyzine HCl (Hydroxyzine Hcl 25 Mg Tablet) 25 mg PO Q6H PRN PRN Reason: mild anxiety Last Admin: 10/01/25 09:12 Dose: 25 mg [place] Carbonate ([place] Carbonate Er 450 Mg Tablet.Er) 900 mg PO BEDTIME [facility] Last Admin: 09/30/25 19:59 Dose: 900 mg Magnesium Hydroxide (Milk Of Magnesia 30 Ml Oral.Susp) 30 ml PO DAILY PRN PRN Reason: Constipation Last Admin: 09/30/25 20:04 Dose: 30 ml Melatonin (Melatonin 3 Mg Tablet) 9 mg PO BEDTIME [facility] Last Admin: 09/30/25 19:58 Dose: 9 mg Mirtazapine (Mirtazapine 15 Mg Tablet) 15 mg PO BEDTIME [facility] Last Admin: 09/30/25 19:59 Dose: 15 mg Naproxen (Naproxen 500 Mg Tablet) 500 mg PO Q12H PRN On Hold: 09/27/25 15:47 Comment: Order held by Process Transfer PRN Reason: Knee and shoulder pain Nicotine (Nicotine 21 Mg Patch.Td24) 21 mg TRANSDERMA DAILY PRN PRN Reason: smoking cessation Nicotine Polacrilex (Nicotine Polacrilex 2 Mg Gum) 4 mg BUCCAL Q2H PRN PRN Reason: Nicotine Cravings Olanzapine (Olanzapine 10 Mg Tablet) 10 mg PO TID PRN PRN Reason: agitation Last Admin: 09/30/25 21:40 Dose: 10 mg Olanzapine (Olanzapine 10 Mg Tablet) 10 mg PO BID [facility] Last Admin: 10/01/25 09:06 Dose: 10 mg Polyethylene Glycol (Polyethylene Glycol 3350 17 Gm Powd.Pack) 17 gm PO DAILY PRN PRN Reason: Constipation Propranolol HCl (Propranolol Hcl 20 Mg Tablet) 20 mg PO TID [facility]; Protocol Last Admin: 10/01/25 09:06 Dose: 20 mg Trazodone HCl (Trazodone Hcl 50 Mg Tablet) 250 mg PO BEDTIME [facility] Last Admin: 09/30/25 20:01 Dose: 250 mg Allergies Allergies Allergy/AdvReac Type Severity Reaction Status Date / Time duloxetine (From CYMBALTA) Allergy Unknown RASH Verified 09/26/25 19:59 shrimp Allergy Anaphylaxis Verified 09/26/25 19:59 Assessment & Plan Assessment & Plan (1) Bipolar disorder: Status: Acute Code(s): F31.9 - Bipolar disorder, unspecified (2) PTSD (post-traumatic stress disorder): Status: Acute Code(s): F43.10 - Post-traumatic stress disorder, unspecified Plan 50-year-old male with past medical history as listed below presented to emergency room with vague suicidal ideation. He is admitted to inpatient psych for further stabilization. Bipolar disorder/PTSD/suicide ideations/anxiety Treatment per psychiatric team Hypertension Continue amlodipine Blood pressure stable on review Thank you for allowing me to participate in the care of this patient. Will follow with you, please notify medical provider with any changes in condition or concerns. 10/01/25:Pt reporting anxiety, asking for a prn-given chlorpromazine 50 mg x 1 dose in trial. No further changes today. Reason for continued inpatient stay Substantial Risk for: rapid decompensation and med/psych decompensation Time Spent With Patient Time: Total time managing care of this patient today ____ minutes.
[2025-10-01 12:30] VITALS: BP 155/94
[2025-10-01 15:04] VITALS: BP 124/70; PULSE 94
[2025-10-01] MEDS: Milk of Magnesia 30 ML ORAL.SUSP PO (15:30)
[2025-10-01 20:00] VITALS: BP 145/95; PULSE 63; RESP 16; TEMP 36.3; O2SAT 99
[2025-10-01 20:58] VITALS: BP 145/95; PULSE 63
[2025-10-02 08:00] VITALS: BP 121/67; PULSE 56; RESP 16; TEMP 36.6; O2SAT 98
[2025-10-02 08:23] LABS: MANUAL DIFF FLAG NO
[2025-10-02 08:31] LABS: Hematocrit 51.0 % (42.0-52.0); Hemoglobin 16.6 g/dl (14.0-18.0); Imm Gran Abs Auto 0.02 X10*3/uL (0.00-0.03); Imm Gran Pct Auto 0.2 % (0.0-0.4); Lymphocytes Absolute Auto 4.7 X10*3/uL (1.2-4.9); Mean Corpuscular HGB Conc 32.5 g/dl (31.0-36.0); Mean Corpuscular Hemoglobin 29.7 pg (27.0-33.0); Mean Corpuscular Volume 91.2 fL (80.0-98.0); NRBC Abs Auto 0.000 X10*3/uL (0.0-0.012); NRBC Pct Auto 0.0 /100WBC (0.0-0.2); Platelet Count 282 X10*3/uL (160-400); Red Blood Count 5.59 X10*6/uL (4.60-5.80); White Blood Count 10.0 X10*3/uL (4.8-10.8)
[2025-10-02] MEDS: Nicotine 21 MG PATCH.TD24 TRANSDERMA (11:30)
[2025-10-02 15:33] VITALS: BP 137/91; PULSE 99
--- NOTE | 2025-10-02 16:24 | HO.PSYCHPN ---
Subjective Subjective Date of Service: 10/02/25 Reason For Visit: decompensation Subjective Notes: Conditional Voluntary Healthcare Proxy: No Guardianship: No Medical Problems Affecting Mental Status: No Interim History: Reports one time dose of chlorpromazine was helpful for anxiety. Denies SI,HI,AH,VH. Slept 10 hours. Review of medications-asks to increase hydroxyzine to 50 mg q6 prn as he takes this in the community. 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 Discussed his perception of being forgetful and having poor short term memory. This along with depression and anxiety he reports makes it impossible to move ahead consistently. Medication Compliance: Yes Side effects from medications: No (memory issues?) Attending Groups: Intermittent Review of Systems Acute medical concerns: No Review of Systems Review of Systems reports being forgetful and having memory symptoms Mental Status Exam Mental Status Exam Patient Appearance: Appropriate Patient Orientation: Person, Place, Time and Situation Level of Consciousness: Alert Patient Behavior: Talkative and Good Eye Contact Mood Description: Depressed and Anxious Affect Description: Flat Patient Cognition Impaired: No Ability to Follow Directions: Good Speech Pattern: Spontaneous Speech Memory Description: Remote Impaired Hallucinations: None Delusions: Not Present Perceptual Disturbances: Derealization Thought Process: Distracted and Rumination Thought Content: positive for Perseveration and positive for Suicidal Ideation (denies) Depressive Symptoms: Thoughts of /Suicide (denies) Judgement: Fair Diagnostics Vital Signs (24Hr): Vital Signs - 24 hr 10/01/25 20:00 10/01/25 20:58 10/02/25 08:00 Temperature 97.3 F 97.9 F Pulse Rate 63 63 56 Respiratory Rate 16 16 Blood Pressure 145/95 H 145/95 H 121/67 Pulse Oximetry 99 98 Oxygen Delivery Method Room Air Room Air 10/02/25 15:33 Temperature Pulse Rate 99 Respiratory Rate Blood Pressure 137/91 H Pulse Oximetry Oxygen Delivery Method BMI result Body Mass Index 31.6 Labs 10/02/25 07:58 10/01/25 00:21 Labs: Laboratory Results - last 48 hr 10/01/25 10/01/25 10/01/25 00:21 04:41 05:45 WBC 15.8 H RBC 5.47 Hgb 16.5 Hct 49.6 MCV 90.7 MCH 30.2 MCHC 33.3 RDW 12.2 Plt Count 297 MPV 9.2 L Immature Gran % (Auto) 0.4 Neut % (Auto) 62.5 Lymph % (Auto) 28.8 [place] % (Auto) 6.3 Eos % (Auto) 1.6 Baso % (Auto) 0.4 Lymph # (Auto) 4.6 [place] # (Auto) 1.0 Eos # (Auto) 0.3 Baso # (Auto) 0.1 Abs Immat Gran (auto) 0.06 H Absolute Neuts (auto) 9.9 H Absolute Nucleated RBC 0.000 Nucleated RBC % (auto) 0.0 Sodium 137 Potassium 4.9 Chloride 99 Carbon Dioxide 30 H Anion Gap 13 BUN 21 H Creatinine 0.99 Estim Creat Clear Calc 109.0 Estimated GFR > 60 Random Glucose 112 Calcium 10.7 H Total Bilirubin 0.6 AST 23 ALT 26 Alkaline Phosphatase 86 Ammonia 56 H Total Protein 8.0 Albumin 4.8 Lipase 28 Urine Color Yellow Urine Appearance Clear Urine pH 7.5 Ur Specific [place] <= 1.005 Urine Protein Negative Urine Glucose (UA) Negative Urine Ketones Negative Urine Blood Negative Urine Nitrite Negative Ur Leukocyte Esterase Negative 10/02/25 07:58 WBC 10.0 RBC 5.59 Hgb 16.6 Hct 51.0 MCV 91.2 MCH 29.7 MCHC 32.5 RDW 12.1 Plt Count 282 MPV 9.6 Immature Gran % (Auto) 0.2 Neut % (Auto) 41.9 L Lymph % (Auto) 46.9 H [place] % (Auto) 7.6 Eos % (Auto) 2.7 Baso % (Auto) 0.7 Lymph # (Auto) 4.7 [place] # (Auto) 0.8 Eos # (Auto) 0.3 Baso # (Auto) 0.1 Abs Immat Gran (auto) 0.02 Absolute Neuts (auto) 4.2 Absolute Nucleated RBC 0.000 Nucleated RBC % (auto) 0.0 Sodium Potassium Chloride Carbon Dioxide Anion Gap BUN Creatinine Estim Creat Clear Calc Estimated GFR Random Glucose Calcium Total Bilirubin AST ALT Alkaline Phosphatase Ammonia Total Protein Albumin Lipase Urine Color Urine Appearance Urine pH Ur Specific [place] Urine Protein Urine Glucose (UA) Urine Ketones Urine Blood Urine Nitrite Ur Leukocyte Esterase Medications Medications Current Medications Acetaminophen (Acetaminophen 325 Mg Tablet) 650 mg PO Q6H PRN PRN Reason: Headache/Pain, Scale 1-10 Last Admin: 10/01/25 09:12 Dose: 650 mg Al Hydroxide/Mg Hydroxide (Magnesium Hydrox/Alum Hydrox 30 Ml Oral.Susp) 30 ml PO Q6H PRN PRN Reason: Heartburn/Nausea Amlodipine Besylate (Amlodipine Besylate 10 Mg Tablet) 10 mg PO DAILY [facility]; Protocol Last Admin: 10/02/25 08:35 Dose: 10 mg Clomipramine HCl (Clomipramine Hcl 25 Mg Capsule) 50 mg PO BEDTIME [facility] Last Admin: 10/01/25 21:02 Dose: 50 mg Divalproex Sodium (Divalproex Sodium 500 Mg Tablet.Dr) 500 mg PO BEDTIME [facility] Last Admin: 10/01/25 21:01 Dose: 500 mg Docusate Sodium (Docusate Sodium 100 Mg Capsule) 100 mg PO BID [facility] Last Admin: 10/02/25 08:36 Dose: 100 mg Famotidine (Famotidine 20 Mg Tablet) 20 mg PO BID [facility] Stop: 10/08/25 11:44 Last Admin: 10/02/25 08:35 Dose: 20 mg Hydroxyzine HCl (Hydroxyzine Hcl 25 Mg Tablet) 25 mg PO Q6H PRN PRN Reason: mild anxiety Last Admin: 10/02/25 11:30 Dose: 25 mg [place] Carbonate ([place] Carbonate Er 450 Mg Tablet.Er) 900 mg PO BEDTIME [facility] Last Admin: 10/01/25 20:57 Dose: 900 mg Magnesium Hydroxide (Milk Of Magnesia 30 Ml Oral.Susp) 30 ml PO DAILY PRN PRN Reason: Constipation Last Admin: 10/01/25 15:30 Dose: 30 ml Melatonin (Melatonin 3 Mg Tablet) 9 mg PO BEDTIME [facility] Last Admin: 10/01/25 20:58 Dose: 9 mg Mirtazapine (Mirtazapine 15 Mg Tablet) 15 mg PO BEDTIME [facility] Last Admin: 10/01/25 21:01 Dose: 15 mg Naproxen (Naproxen 500 Mg Tablet) 500 mg PO Q12H PRN On Hold: 09/27/25 15:47 Comment: Order held by Process Transfer PRN Reason: Knee and shoulder pain Nicotine (Nicotine 21 Mg Patch.Td24) 21 mg TRANSDERMA DAILY PRN PRN Reason: smoking cessation Last Admin: 10/02/25 11:30 Dose: 21 mg Nicotine Polacrilex (Nicotine Polacrilex 2 Mg Gum) 4 mg BUCCAL Q2H PRN PRN Reason: Nicotine Cravings Olanzapine (Olanzapine 10 Mg Tablet) 10 mg PO TID PRN PRN Reason: agitation Last Admin: 10/02/25 11:31 Dose: 10 mg Olanzapine (Olanzapine 10 Mg Tablet) 10 mg PO BID [facility] Last Admin: 10/02/25 08:36 Dose: 10 mg Polyethylene Glycol (Polyethylene Glycol 3350 17 Gm Powd.Pack) 17 gm PO DAILY PRN PRN Reason: Constipation Propranolol HCl (Propranolol Hcl 20 Mg Tablet) 20 mg PO TID [facility]; Protocol Last Admin: 10/02/25 15:33 Dose: 20 mg Trazodone HCl (Trazodone Hcl 50 Mg Tablet) 250 mg PO BEDTIME [facility] Last Admin: 10/01/25 20:59 Dose: 250 mg Allergies Allergies Allergy/AdvReac Type Severity Reaction Status Date / Time duloxetine (From CYMBALTA) Allergy Unknown RASH Verified 09/26/25 19:59 shrimp Allergy Anaphylaxis Verified 09/26/25 19:59 Assessment & Plan Assessment & Plan (1) Bipolar disorder: Status: Acute Code(s): F31.9 - Bipolar disorder, unspecified (2) PTSD (post-traumatic stress disorder): Status: Acute Code(s): F43.10 - Post-traumatic stress disorder, unspecified Plan 50-year-old male with past medical history as listed below presented to emergency room with vague suicidal ideation. He is admitted to inpatient psych for further stabilization. Bipolar disorder/PTSD/suicide ideations/anxiety Treatment per psychiatric team Hypertension Continue amlodipine Blood pressure stable on review Thank you for allowing me to participate in the care of this patient. Will follow with you, please notify medical provider with any changes in condition or concerns. 10/01/25:Pt reporting anxiety, asking for a prn-given chlorpromazine 50 mg x 1 dose in trial. No further changes today. 10/02/25: chlorpromazine 25 mg tid prn anxiety-continued trial Reason for continued inpatient stay Substantial Risk for: rapid decompensation Time Spent With Patient Time: Total time managing care of this patient today ____ minutes.
[2025-10-02 20:00] VITALS: BP 123/82; PULSE 88; RESP 18; TEMP 36.8; O2SAT 96
[2025-10-03 08:00] VITALS: BP 171/104; PULSE 82; RESP 17; TEMP 36.6; O2SAT 98
[2025-10-03 08:41] VITALS: BP 171/104; PULSE 82
[2025-10-03 08:42] VITALS: BP 171/104
[2025-10-03 09:36] LABS: Folate 7.3 ng/mL (> or = 4.0); Vitamin B12 463 pg/mL (200-900)
--- NOTE | 2025-10-03 09:48 | HO.PSYCHPN ---
Subjective Subjective Date of Service: 10/03/25 Reason For Visit: decompensation Subjective Notes: Conditional Voluntary Healthcare Proxy: No Guardianship: No Medical Problems Affecting Mental Status: No Interim History: Pt denies SI,HI,AH, VH. Discussed continuing memory eval-pt agrees Continues to report forgetfulness-offers examples of telling tw that he wanted to meet when we had met ~2.5 hours before-when prompted, pt reports he does recall this. Also, when going into the kitchen for juice, forgot what he was going in the kitchen for until prompted then recalls. Anxious-review of meds, tests and results thus far. MOCA completed today- indicating cognitive impairment. Medication Compliance: Yes Side effects from medications: No Attending Groups: Intermittent Review of Systems memory loss- eval ongoing Medical Review of Systems: unchanged Review of Systems Review of Systems anxiety, forgetfulness Mental Status Exam Mental Status Exam Patient Appearance: Appropriate Patient Orientation: Person, Place, Time and Situation Level of Consciousness: Alert Patient Behavior: Talkative and Good Eye Contact Mood Description: Depressed and Anxious Affect Description: Flat Patient Cognition Impaired: No Ability to Follow Directions: Good Speech Pattern: Spontaneous Speech Memory Description: Remote Impaired Hallucinations: None Delusions: Not Present Perceptual Disturbances: Derealization Thought Process: Distracted and Rumination Thought Content: positive for Perseveration and positive for Suicidal Ideation (denies) Depressive Symptoms: Thoughts of /Suicide (denies) Judgement: Fair Diagnostics Vital Signs (24Hr): Vital Signs - 24 hr 10/02/25 15:33 10/02/25 20:00 10/03/25 08:00 Temperature 98.3 F 97.9 F Pulse Rate 99 88 82 Respiratory Rate 18 17 Blood Pressure 137/91 H 123/82 171/104 H Pulse Oximetry 96 98 Oxygen Delivery Method Room Air Room Air 10/03/25 08:41 10/03/25 08:42 Temperature Pulse Rate 82 Respiratory Rate Blood Pressure 171/104 H 171/104 H Pulse Oximetry Oxygen Delivery Method BMI result Body Mass Index 31.6 Labs 10/02/25 07:58 10/01/25 00:21 Labs: Laboratory Results - last 48 hr 10/02/25 10/03/25 07:58 08:32 WBC 10.0 RBC 5.59 Hgb 16.6 Hct 51.0 MCV 91.2 MCH 29.7 MCHC 32.5 RDW 12.1 Plt Count 282 MPV 9.6 Immature Gran % (Auto) 0.2 Neut % (Auto) 41.9 L Lymph % (Auto) 46.9 H [place] % (Auto) 7.6 Eos % (Auto) 2.7 Baso % (Auto) 0.7 Lymph # (Auto) 4.7 [place] # (Auto) 0.8 Eos # (Auto) 0.3 Baso # (Auto) 0.1 Abs Immat Gran (auto) 0.02 Absolute Neuts (auto) 4.2 Absolute Nucleated RBC 0.000 Nucleated RBC % (auto) 0.0 Vitamin B12 463 Folate 7.3 Medications Medications Current Medications Acetaminophen (Acetaminophen 325 Mg Tablet) 650 mg PO Q6H PRN PRN Reason: Headache/Pain, Scale 1-10 Last Admin: 10/03/25 00:34 Dose: 650 mg Al Hydroxide/Mg Hydroxide (Magnesium Hydrox/Alum Hydrox 30 Ml Oral.Susp) 30 ml PO Q6H PRN PRN Reason: Heartburn/Nausea Amlodipine Besylate (Amlodipine Besylate 10 Mg Tablet) 10 mg PO DAILY [facility]; Protocol Last Admin: 10/03/25 08:42 Dose: 10 mg Chlorpromazine HCl (Chlorpromazine Hcl 25 Mg Tablet) 25 mg PO Q6H PRN PRN Reason: anxiety, agitation Last Admin: 10/02/25 21:28 Dose: 25 mg Clomipramine HCl (Clomipramine Hcl 25 Mg Capsule) 50 mg PO BEDTIME [facility] Last Admin: 10/02/25 21:25 Dose: 50 mg Divalproex Sodium (Divalproex Sodium 500 Mg Tablet.Dr) 500 mg PO BEDTIME [facility] Last Admin: 10/02/25 21:26 Dose: 500 mg Docusate Sodium (Docusate Sodium 100 Mg Capsule) 100 mg PO BID [facility] Last Admin: 10/03/25 08:41 Dose: 100 mg Famotidine (Famotidine 20 Mg Tablet) 20 mg PO BID [facility] Stop: 10/08/25 11:44 Last Admin: 10/03/25 08:42 Dose: 20 mg Hydroxyzine HCl (Hydroxyzine Hcl 50 Mg Tablet) 50 mg PO Q6H PRN PRN Reason: mild anxiety Last Admin: 10/02/25 21:27 Dose: 50 mg [place] Carbonate ([place] Carbonate Er 450 Mg Tablet.Er) 900 mg PO BEDTIME [facility] Last Admin: 10/02/25 21:26 Dose: 900 mg Magnesium Hydroxide (Milk Of Magnesia 30 Ml Oral.Susp) 30 ml PO DAILY PRN PRN Reason: Constipation Last Admin: 10/01/25 15:30 Dose: 30 ml Melatonin (Melatonin 3 Mg Tablet) 9 mg PO BEDTIME [facility] Last Admin: 10/02/25 21:26 Dose: 9 mg Mirtazapine (Mirtazapine 15 Mg Tablet) 15 mg PO BEDTIME [facility] Last Admin: 10/02/25 21:27 Dose: 15 mg Naproxen (Naproxen 500 Mg Tablet) 500 mg PO Q12H PRN On Hold: 09/27/25 15:47 Comment: Order held by Process Transfer PRN Reason: Knee and shoulder pain Nicotine (Nicotine 21 Mg Patch.Td24) 21 mg TRANSDERMA DAILY PRN PRN Reason: smoking cessation Last Admin: 10/02/25 11:30 Dose: 21 mg Nicotine Polacrilex (Nicotine Polacrilex 2 Mg Gum) 4 mg BUCCAL Q2H PRN PRN Reason: Nicotine Cravings Olanzapine (Olanzapine 10 Mg Tablet) 10 mg PO TID PRN PRN Reason: agitation Last Admin: 10/03/25 00:34 Dose: 10 mg Olanzapine (Olanzapine 10 Mg Tablet) 10 mg PO BID [facility] Last Admin: 10/03/25 08:42 Dose: 10 mg Polyethylene Glycol (Polyethylene Glycol 3350 17 Gm Powd.Pack) 17 gm PO DAILY PRN PRN Reason: Constipation Propranolol HCl (Propranolol Hcl 20 Mg Tablet) 20 mg PO TID [facility]; Protocol Last Admin: 10/03/25 08:41 Dose: 20 mg Trazodone HCl (Trazodone Hcl 50 Mg Tablet) 250 mg PO BEDTIME [facility] Last Admin: 10/02/25 21:25 Dose: 250 mg Allergies Allergies Allergy/AdvReac Type Severity Reaction Status Date / Time duloxetine (From CYMBALTA) Allergy Unknown RASH Verified 09/26/25 19:59 shrimp Allergy Anaphylaxis Verified 09/26/25 19:59 Assessment & Plan Assessment & Plan (1) Bipolar disorder: Status: Acute Code(s): F31.9 - Bipolar disorder, unspecified (2) PTSD (post-traumatic stress disorder): Status: Acute Code(s): F43.10 - Post-traumatic stress disorder, unspecified Plan 50-year-old male with past medical history as listed below presented to emergency room with vague suicidal ideation. He is admitted to inpatient psych for further stabilization. Bipolar disorder/PTSD/suicide ideations/anxiety Treatment per psychiatric team Hypertension Continue amlodipine Blood pressure stable on review Thank you for allowing me to participate in the care of this patient. Will follow with you, please notify medical provider with any changes in condition or concerns. 10/01/25:Pt reporting anxiety, asking for a prn-given chlorpromazine 50 mg x 1 dose in trial. No further changes today. 10/03/25: Continue memory eval- iron profile, MOCA=, B12, HIV, CAT, ESR,CRP- pt agrees with eval. Reason for continued inpatient stay Substantial Risk for: rapid decompensation and med/psych decompensation Time Spent With Patient Time: Total time managing care of this patient today ____ minutes.
[2025-10-03] MEDS: Nicotine 21 MG PATCH.TD24 TRANSDERMA (09:56)
[2025-10-03 10:01] VITALS: BP 161/96; PULSE 80
[2025-10-03 14:07] VITALS: BP 145/92; PULSE 91
[2025-10-03 15:34] LABS: Iron 198 mcg/dL (45-160); Percent Iron Saturation 64 % (15-50); Total Iron Binding Capacity 311 mcg/dL (228-428); Unsaturated Iron Binding 113 ug/dL
[2025-10-03 15:58] LABS: Erythrocyte Sedimentation Rate 2 MM/HR (0-15)
[2025-10-03 20:00] VITALS: BP 143/81; PULSE 110; RESP 17; TEMP 36.8; O2SAT 100
--- NOTE | 2025-10-04 | ECG_ITS ---
Test Reason : CHEST PAIN Blood Pressure : */* mmHG Vent. Rate : 86 BPM Atrial Rate : 86 BPM P-R Int : 148 ms QRS Dur : 88 ms QT Int : 376 ms P-R-T Axes : 46 41 39 degrees QTcB Int : 449 ms Normal sinus rhythm Nonspecific T wave abnormality Abnormal ECG When compared with ECG of 27-Sep-2025 11:28, Vent. rate has increased by [address] no longer elevated in Lateral leads Nonspecific T wave abnormality now evident in Lateral leads Referred By: Natalie Nicholas Electronically Signed By: CLOVIS MONCADA MD
[2025-10-04 04:14] LABS: HIV Num 1 0.06 S/CO (0.00-0.99)
[2025-10-04 08:00] VITALS: BP 154/86; PULSE 83; TEMP 37.1; O2SAT 99
[2025-10-04] MEDS: Milk of Magnesia 30 ML ORAL.SUSP PO (08:50)
--- NOTE | 2025-10-04 09:49 | P.PNPSI_ITS ---
Subjective Subjective Date of Service: 10/04/25 Reason For Visit: decompensation Subjective Notes: Conditional Voluntary Healthcare Proxy: No Guardianship: No Medical Problems Affecting Mental Status: No Interim History: Review of diagnostic results with pt. Depakote returned to 750 mg HS (ammonia level slightly high earlier this week-pt requested to bring dose back to 750 mg) Denies SI,HI,AH,VH Continues with anxiety, racing of thought. 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 Discussed substance use. 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 Medication Compliance: Yes Side effects from medications: No Attending Groups: Intermittent Review of Systems Acute medical concerns: No Medical Review of Systems: unchanged Review of Systems Review of Systems Denies Mental Status Exam Mental Status Exam Patient Appearance: Appropriate Patient Orientation: Person, Place, Time and Situation Level of Consciousness: Alert Patient Behavior: Talkative and Good Eye Contact Mood Description: Depressed and Anxious Affect Description: Flat Patient Cognition Impaired: No Ability to Follow Directions: Good Speech Pattern: Spontaneous Speech Memory Description: Remote Impaired Hallucinations: None Delusions: Not Present Perceptual Disturbances: Derealization Thought Process: Distracted and Rumination Thought Content: positive for Perseveration and positive for Suicidal Ideation (denies) Depressive Symptoms: Thoughts of /Suicide (denies) Judgement: Fair Diagnostics Vital Signs (24Hr): Vital Signs - 24 hr 10/03/25 10:01 10/03/25 14:07 10/03/25 20:00 Temperature 98.2 F Pulse Rate 80 91 110 H Respiratory Rate 17 Blood Pressure 161/96 H 145/92 H 143/81 H Pulse Oximetry 100 Oxygen Delivery Method Room Air Room Air 10/04/25 08:00 Temperature 98.8 F Pulse Rate 83 Respiratory Rate Blood Pressure 154/86 H Pulse Oximetry 99 Oxygen Delivery Method Room Air BMI result Body Mass Index 31.6 Labs 10/02/25 07:58 10/01/25 00:21 Labs: Laboratory Results - last 48 hr 10/03/25 10/03/25 08:32 15:11 ESR 2 Iron 198 H TIBC 311 % Saturation 64 H Unsat Iron Binding 113 C-Reactive Protein < 0.04 Vitamin B12 463 Folate 7.3 HIV 1&2 Ab/P24 Ag 4thGn Nonreactive Imaging Radiology Impressions: ITS Impressions Head CT 10/03/25 16:22 IMPRESSION: 1. No acute intracranial pathology. 2. Mild brain volume loss, mildly progressed from 2019 and minimally more prominent than expected for patient's age. Electronically signed by: Shelia Barnes MD 10/03/2025 05:40 PM [facility] Medications Medications Current Medications Acetaminophen (Acetaminophen 325 Mg Tablet) 650 mg PO Q6H PRN PRN Reason: Headache/Pain, Scale 1-10 Last Admin: 10/03/25 20:50 Dose: 650 mg Al Hydroxide/Mg Hydroxide (Magnesium Hydrox/Alum Hydrox 30 Ml Oral.Susp) 30 ml PO Q6H PRN PRN Reason: Heartburn/Nausea Amlodipine Besylate (Amlodipine Besylate 10 Mg Tablet) 10 mg PO DAILY [facility]; Protocol Last Admin: 10/04/25 08:26 Dose: 10 mg Chlorpromazine HCl (Chlorpromazine Hcl 25 Mg Tablet) 25 mg PO Q6H PRN PRN Reason: anxiety, agitation Last Admin: 10/04/25 00:44 Dose: 25 mg Clomipramine HCl (Clomipramine Hcl 25 Mg Capsule) 50 mg PO BEDTIME [facility] Last Admin: 10/03/25 20:44 Dose: 50 mg Divalproex Sodium (Divalproex Sodium 500 Mg Tablet.Dr) 500 mg PO BEDTIME [facility] Last Admin: 10/03/25 20:45 Dose: 500 mg Docusate Sodium (Docusate Sodium 100 Mg Capsule) 100 mg PO BID [facility] Last Admin: 10/04/25 08:26 Dose: 100 mg Famotidine (Famotidine 20 Mg Tablet) 20 mg PO BID [facility] Stop: 10/08/25 11:44 Last Admin: 10/04/25 08:26 Dose: 20 mg Hydroxyzine HCl (Hydroxyzine Hcl 50 Mg Tablet) 50 mg PO Q6H PRN PRN Reason: mild anxiety Last Admin: 10/04/25 00:44 Dose: 50 mg [place] Carbonate ([place] Carbonate Er 450 Mg Tablet.Er) 900 mg PO BEDTIME [facility] Last Admin: 10/03/25 20:45 Dose: 900 mg Magnesium Hydroxide (Milk Of Magnesia 30 Ml Oral.Susp) 30 ml PO DAILY PRN PRN Reason: Constipation Last Admin: 10/04/25 08:50 Dose: 30 ml Melatonin (Melatonin 3 Mg Tablet) 9 mg PO BEDTIME [facility] Last Admin: 10/03/25 20:46 Dose: 9 mg Mirtazapine (Mirtazapine 15 Mg Tablet) 15 mg PO BEDTIME [facility] Last Admin: 10/03/25 20:46 Dose: 15 mg Naproxen (Naproxen 500 Mg Tablet) 500 mg PO Q12H PRN On Hold: 09/27/25 15:47 Comment: Order held by Process Transfer PRN Reason: Knee and shoulder pain Nicotine (Nicotine 21 Mg Patch.Td24) 21 mg TRANSDERMA DAILY PRN PRN Reason: smoking cessation Last Admin: 10/03/25 09:56 Dose: 21 mg Nicotine Polacrilex (Nicotine Polacrilex 2 Mg Gum) 4 mg BUCCAL Q2H PRN PRN Reason: Nicotine Cravings Olanzapine (Olanzapine 10 Mg Tablet) 10 mg PO TID PRN PRN Reason: agitation Last Admin: 10/03/25 22:49 Dose: 10 mg Olanzapine (Olanzapine 10 Mg Tablet) 10 mg PO BID [facility] Last Admin: 10/04/25 08:26 Dose: 10 mg Polyethylene Glycol (Polyethylene Glycol 3350 17 Gm Powd.Pack) 17 gm PO DAILY PRN PRN Reason: Constipation Propranolol HCl (Propranolol Hcl 20 Mg Tablet) 20 mg PO TID [facility]; Protocol Last Admin: 10/04/25 08:26 Dose: 20 mg Trazodone HCl (Trazodone Hcl 50 Mg Tablet) 250 mg PO BEDTIME [facility] Last Admin: 10/03/25 20:44 Dose: 250 mg Allergies Allergies Allergy/AdvReac Type Severity Reaction Status Date / Time duloxetine (From CYMBALTA) Allergy Unknown RASH Verified 09/26/25 19:59 shrimp Allergy Anaphylaxis Verified 09/26/25 19:59 Assessment & Plan Assessment & Plan (1) Bipolar disorder: Status: Acute Code(s): F31.9 - Bipolar disorder, unspecified (2) PTSD (post-traumatic stress disorder): Status: Acute Code(s): F43.10 - Post-traumatic stress disorder, unspecified Plan 50-year-old male with past medical history as listed below presented to emergency room with vague suicidal ideation. He is admitted to inpatient psych for further stabilization. Bipolar disorder/PTSD/suicide ideations/anxiety Treatment per psychiatric team Hypertension Continue amlodipine Blood pressure stable on review Thank you for allowing me to participate in the care of this patient. Will follow with you, please notify medical provider with any changes in condition or concerns. 10/01/25:Pt reporting anxiety, asking for a prn-given chlorpromazine 50 mg x 1 dose in trial. No further changes today. 10/02/25: chlorpromazine 25 mg tid prn anxiety-continued trial 10/04/25: Continue tx. Reason for continued inpatient stay Substantial Risk for: rapid decompensation and med/psych decompensation Time Spent With Patient Time: Total time managing care of this patient today ____ minutes.
[2025-10-04] MEDS: Nicotine 21 MG PATCH.TD24 TRANSDERMA (12:31)
[2025-10-04 14:23] VITALS: BP 149/82; PULSE 102
[2025-10-04 19:52] VITALS: BP 150/93; PULSE 104; RESP 18; TEMP 36.2; O2SAT 94
[2025-10-05 07:51] VITALS: BP 166/95; PULSE 80; TEMP 35.6; O2SAT 98
[2025-10-05] MEDS: Nicotine 21 MG PATCH.TD24 TRANSDERMA (08:01)
[2025-10-05] MEDS: Milk of Magnesia 30 ML ORAL.SUSP PO (09:31)
--- NOTE | 2025-10-05 13:43 | P.PNPSI_ITS ---
Subjective Subjective Date of Service: 10/05/25 Reason For Visit: decompensation Subjective Notes: Conditional Voluntary Healthcare Proxy: No Guardianship: No Medical Problems Affecting Mental Status: No Interim History: Patient seen in the OT office.? They were calm, cooperative, communicative. Recognized from multiple prior hospitalizations. Reports feeling better thought concerned about cognitive side effects of medications. Mood improved. Reports no SI since admission. Otherwise they denied concerns about their care at this time. Patient denies SI, HI, AH, VH. Medication Compliance: Yes Side effects from medications: Yes (subjective confusion) Attending Groups: Yes Review of Systems Acute medical concerns: No Medical Review of Systems: unchanged Review of Systems Review of Systems Yes all other systems are reviewed and are negative Mental Status Exam Mental Status Exam Narrative: Patient Appearance: Well Groomed, adequate hygiene Patient Behavior: Appropriate Level of Consciousness: Awake, alert Patient Orientation: Person, Place and Time, situational context Memory: grossly intact to recent events Psychomotor: no agitation or slowing Speech: normal rate, tone, volume Mood: ?okay? Affect: appropriate range Thought Process: Goal Oriented Thought Content: denies SI/HI; focused on side effect concerns Hallucinations: Denies; does not appear preoccupied Delusions: None evinced Insight: mild impairment Judgment: mild impairment Impulsivity: low Diagnostics Vital Signs (24Hr): Vital Signs - 24 hr 10/04/25 14:23 10/04/25 19:52 10/05/25 07:51 Temperature 97.2 F 96.1 F L Pulse Rate 102 H 104 H 80 Respiratory Rate 18 Blood Pressure 149/82 H 150/93 H 166/95 H Pulse Oximetry 94 98 Oxygen Delivery Method Room Air Room Air BMI result Body Mass Index 31.6 Labs 10/02/25 07:58 10/01/25 00:21 Labs: Laboratory Results - last 48 hr 10/03/25 15:11 ESR 2 Iron 198 H TIBC 311 % Saturation 64 H Unsat Iron Binding 113 C-Reactive Protein < 0.04 HIV 1&2 Ab/P24 Ag 4thGn Nonreactive Imaging Radiology Impressions: ITS Impressions Head CT 10/03/25 16:22 IMPRESSION: 1. No acute intracranial pathology. 2. Mild brain volume loss, mildly progressed from 2019 and minimally more prominent than expected for patient's age. Electronically signed by: Shelia Barnes MD 10/03/2025 05:40 PM EST Medications Medications Current Medications Acetaminophen (Acetaminophen 325 Mg Tablet) 650 mg PO Q6H PRN PRN Reason: Headache/Pain, Scale 1-10 Last Admin: 10/05/25 13:07 Dose: 650 mg Al Hydroxide/Mg Hydroxide (Magnesium Hydrox/Alum Hydrox 30 Ml Oral.Susp) 30 ml PO Q6H PRN PRN Reason: Heartburn/Nausea Amlodipine Besylate (Amlodipine Besylate 10 Mg Tablet) 10 mg PO DAILY [facility]; Protocol Last Admin: 10/05/25 08:00 Dose: 10 mg Chlorpromazine HCl (Chlorpromazine Hcl 25 Mg Tablet) 25 mg PO Q6H PRN PRN Reason: anxiety, agitation Last Admin: 10/04/25 15:07 Dose: 25 mg Clomipramine HCl (Clomipramine Hcl 25 Mg Capsule) 50 mg PO BEDTIME YOBANI Last Admin: 10/04/25 21:02 Dose: 50 mg Divalproex Sodium (Divalproex Sodium 250 Mg Tablet.Dr) 750 mg PO BEDTIME YOBANI Last Admin: 10/04/25 21:01 Dose: 750 mg Docusate Sodium (Docusate Sodium 100 Mg Capsule) 100 mg PO BID YOBANI Last Admin: 10/05/25 08:00 Dose: 100 mg Famotidine (Famotidine 20 Mg Tablet) 20 mg PO BID [facility] Stop: 10/08/25 11:44 Last Admin: 10/05/25 08:00 Dose: 20 mg Hydroxyzine HCl (Hydroxyzine Hcl 50 Mg Tablet) 50 mg PO Q6H PRN PRN Reason: mild anxiety Last Admin: 10/05/25 11:08 Dose: 50 mg [place] Carbonate ([place] Carbonate Er 450 Mg Tablet.Er) 900 mg PO BEDTIME YOBANI Last Admin: 10/04/25 21:02 Dose: 900 mg Magnesium Hydroxide (Milk Of Magnesia 30 Ml Oral.Susp) 30 ml PO DAILY PRN PRN Reason: Constipation Last Admin: 10/05/25 09:31 Dose: 30 ml Melatonin (Melatonin 3 Mg Tablet) 9 mg PO BEDTIME YOBANI Last Admin: 10/04/25 21:34 Dose: 9 mg Mirtazapine (Mirtazapine 15 Mg Tablet) 15 mg PO BEDTIME YOBANI Last Admin: 10/04/25 21:02 Dose: 15 mg Naproxen (Naproxen 500 Mg Tablet) 500 mg PO Q12H PRN On Hold: 09/27/25 15:47 Comment: Order held by Process Transfer PRN Reason: Knee and shoulder pain Nicotine (Nicotine 21 Mg Patch.Td24) 21 mg TRANSDERMA DAILY PRN PRN Reason: smoking cessation Last Admin: 10/05/25 08:01 Dose: 21 mg Nicotine Polacrilex (Nicotine Polacrilex 2 Mg Gum) 4 mg BUCCAL Q2H PRN PRN Reason: Nicotine Cravings Last Admin: 10/05/25 09:32 Dose: 4 mg Olanzapine (Olanzapine 10 Mg Tablet) 10 mg PO TID PRN PRN Reason: agitation Last Admin: 10/05/25 12:45 Dose: 10 mg Olanzapine (Olanzapine 10 Mg Tablet) 10 mg PO BID YOBANI Last Admin: 10/05/25 08:00 Dose: 10 mg Polyethylene Glycol (Polyethylene Glycol 3350 17 Gm Powd.Pack) 17 gm PO DAILY PRN PRN Reason: Constipation Last Admin: 10/04/25 19:07 Dose: 17 gm Propranolol HCl (Propranolol Hcl 20 Mg Tablet) 20 mg PO TID [facility]OB[facility]; Protocol Last Admin: 10/05/25 07:59 Dose: 20 mg Trazodone HCl (Trazodone Hcl 50 Mg Tablet) 250 mg PO BEDTIME YOBANI Last Admin: 10/04/25 21:34 Dose: 250 mg Allergies Allergies Allergy/AdvReac Type Severity Reaction Status Date / Time duloxetine (From CYMBALTA) Allergy Unknown RASH Verified 09/26/25 19:59 shrimp Allergy Anaphylaxis Verified 09/26/25 19:59 Assessment & Plan Assessment & Plan (1) Bipolar disorder: Status: Acute Code(s): F31.9 - Bipolar disorder, unspecified (2) PTSD (post-traumatic stress disorder): Status: Acute Code(s): F43.10 - Post-traumatic stress disorder, unspecified Plan 50-year-old male with past medical history as listed below presented to emergency room with vague suicidal ideation. He is admitted to inpatient psych for further stabilization. Bipolar disorder/PTSD/suicide ideations/anxiety Treatment per psychiatric team Hypertension Continue amlodipine Blood pressure stable on review Thank you for allowing me to participate in the care of this patient. Will follow with you, please notify medical provider with any changes in condition or concerns. 10/01/25:Pt reporting anxiety, asking for a prn-given chlorpromazine 50 mg x 1 dose in trial. No further changes today. 10/02/25: chlorpromazine 25 mg tid prn anxiety-continued trial 10/04/25: Continue tx. * 10/05: no change - pt would like to discuss increasing Remeron dosage with weekday team on Tuesday Patient educated on: diagnosis, medication risk/benefits and substance abuse Informed Consent: understands Reason for continued inpatient stay Substantial Risk for: inability to function and rapid decompensation Time Spent With Patient Time: Total time managing care of this patient today _15___ minutes.
[2025-10-05 14:34] VITALS: BP 146/88
[2025-10-05 19:44] VITALS: BP 158/93; PULSE 103; RESP 16; TEMP 36.4; O2SAT 97
[2025-10-06] MEDS: Magnesium Hydrox/Alum Hydrox 30 ML ORAL.SUSP PO (05:32)
[2025-10-06 07:54] VITALS: BP 152/87; PULSE 99; RESP 18; TEMP 36.9; O2SAT 97
[2025-10-06] MEDS: Nicotine 21 MG PATCH.TD24 TRANSDERMA (08:00)
--- NOTE | 2025-10-06 11:02 | P.PNPSI_ITS ---
Subjective Subjective Date of Service: 10/06/25 Reason For Visit: decompensation Subjective Notes: Conditional Voluntary Healthcare Proxy: No Guardianship: No Medical Problems Affecting Mental Status: No Interim History: Patient seen in the OT office.? They were calm, cooperative, communicative. Reports feeling better thought concerned about cognitive side effects of medications. Mood improved overall, even though described as depressed. Today he states it's hard to stay happy. Reports no SI since admission. Otherwise they denied concerns about their care at this time. Patient denies SI, HI, AH, VH. Medication Compliance: Yes Side effects from medications: No Attending Groups: Yes Review of Systems Acute medical concerns: No Medical Review of Systems: unchanged Review of Systems Review of Systems Yes all other systems are reviewed and are negative Mental Status Exam Mental Status Exam Narrative: Patient Appearance: Well Groomed, adequate hygiene Patient Behavior: Appropriate Level of Consciousness: Awake, alert Patient Orientation: Person, Place and Time, situational context Memory: grossly intact to recent events Psychomotor: no agitation or slowing Speech: normal rate, tone, volume Mood: ?depressed? Affect: appropriate range Thought Process: Goal Oriented Thought Content: denies SI/HI; focused on increasing dosages of medications Hallucinations: Denies; does not appear preoccupied Delusions: None evinced Insight: mild impairment Judgment: mild impairment Impulsivity: low Diagnostics Vital Signs (24Hr): Vital Signs - 24 hr 10/05/25 14:34 10/05/25 19:44 10/06/25 07:54 Temperature 97.5 F 98.4 F Pulse Rate 103 H 99 Respiratory Rate 16 18 Blood Pressure 146/88 H 158/93 H 152/87 H Pulse Oximetry 97 97 Oxygen Delivery Method Room Air Room Air BMI result Body Mass Index 31.6 Labs 10/02/25 07:58 10/01/25 00:21 Imaging Radiology Impressions: ITS Impressions Head CT 10/03/25 16:22 IMPRESSION: 1. No acute intracranial pathology. 2. Mild brain volume loss, mildly progressed from 2019 and minimally more prominent than expected for patient's age. Electronically signed by: Shelia Barnes MD 10/03/2025 05:40 PM [facility] Medications Medications Current Medications Acetaminophen (Acetaminophen 325 Mg Tablet) 650 mg PO Q6H PRN PRN Reason: Headache/Pain, Scale 1-10 Last Admin: 10/06/25 05:32 Dose: 650 mg Al Hydroxide/Mg Hydroxide (Magnesium Hydrox/Alum Hydrox 30 Ml Oral.Susp) 30 ml PO Q6H PRN PRN Reason: Heartburn/Nausea Last Admin: 10/06/25 05:32 Dose: 30 ml Amlodipine Besylate (Amlodipine Besylate 10 Mg Tablet) 10 mg PO DAILY [facility]; Protocol Last Admin: 10/06/25 07:59 Dose: 10 mg Chlorpromazine HCl (Chlorpromazine Hcl 25 Mg Tablet) 25 mg PO Q6H PRN PRN Reason: anxiety, agitation Last Admin: 10/05/25 17:01 Dose: 25 mg Clomipramine HCl (Clomipramine Hcl 25 Mg Capsule) 50 mg PO BEDTIME YOBANI Last Admin: 10/05/25 21:16 Dose: 50 mg Divalproex Sodium (Divalproex Sodium 250 Mg Tablet.Dr) 750 mg PO BEDTIME YOBANI Last Admin: 10/05/25 21:16 Dose: 750 mg Docusate Sodium (Docusate Sodium 100 Mg Capsule) 100 mg PO BID YOBANI Last Admin: 10/06/25 07:59 Dose: 100 mg Famotidine (Famotidine 20 Mg Tablet) 20 mg PO BID [facility]OB[facility] Stop: 10/08/25 11:44 Last Admin: 10/06/25 08:00 Dose: 20 mg Hydroxyzine HCl (Hydroxyzine Hcl 50 Mg Tablet) 50 mg PO Q6H PRN PRN Reason: mild anxiety Last Admin: 10/05/25 11:08 Dose: 50 mg [place] Carbonate ([place] Carbonate Er 450 Mg Tablet.Er) 900 mg PO BEDTIME YOBANI Last Admin: 10/05/25 21:16 Dose: 900 mg Magnesium Hydroxide (Milk Of Magnesia 30 Ml Oral.Susp) 30 ml PO DAILY PRN PRN Reason: Constipation Last Admin: 10/05/25 09:31 Dose: 30 ml Melatonin (Melatonin 3 Mg Tablet) 9 mg PO BEDTIME YOBANI Last Admin: 10/05/25 22:26 Dose: 9 mg Mirtazapine (Mirtazapine 15 Mg Tablet) 15 mg PO BEDTIME YOBANI Last Admin: 10/05/25 21:16 Dose: 15 mg Naproxen (Naproxen 500 Mg Tablet) 500 mg PO Q12H PRN On Hold: 09/27/25 15:47 Comment: Order held by Process Transfer PRN Reason: Knee and shoulder pain Nicotine (Nicotine 21 Mg Patch.Td24) 21 mg TRANSDERMA DAILY PRN PRN Reason: smoking cessation Last Admin: 10/06/25 08:00 Dose: 21 mg Nicotine Polacrilex (Nicotine Polacrilex 2 Mg Gum) 4 mg BUCCAL Q2H PRN PRN Reason: Nicotine Cravings Last Admin: 10/05/25 09:32 Dose: 4 mg Olanzapine (Olanzapine 10 Mg Tablet) 10 mg PO TID PRN PRN Reason: agitation Last Admin: 10/06/25 02:11 Dose: 10 mg Olanzapine (Olanzapine 10 Mg Tablet) 10 mg PO BID YOBANI Last Admin: 10/06/25 07:59 Dose: 10 mg Polyethylene Glycol (Polyethylene Glycol 3350 17 Gm Powd.Pack) 17 gm PO DAILY PRN PRN Reason: Constipation Last Admin: 10/06/25 08:00 Dose: 17 gm Propranolol HCl (Propranolol Hcl 20 Mg Tablet) 20 mg PO TID [facility]OBANI; Protocol Last Admin: 10/06/25 07:59 Dose: 20 mg Trazodone HCl (Trazodone Hcl 50 Mg Tablet) 250 mg PO BEDTIME YOBANI Last Admin: 10/05/25 22:26 Dose: 250 mg Allergies Allergies Allergy/AdvReac Type Severity Reaction Status Date / Time duloxetine (From CYMBALTA) Allergy Unknown RASH Verified 09/26/25 19:59 shrimp Allergy Anaphylaxis Verified 09/26/25 19:59 Assessment & Plan Assessment & Plan (1) Bipolar disorder: Status: Acute Code(s): F31.9 - Bipolar disorder, unspecified (2) PTSD (post-traumatic stress disorder): Status: Acute Code(s): F43.10 - Post-traumatic stress disorder, unspecified Plan 50-year-old male with past medical history as listed below presented to emergency room with vague suicidal ideation. He is admitted to inpatient psych for further stabilization. Bipolar disorder/PTSD/suicide ideations/anxiety Treatment per psychiatric team Hypertension Continue amlodipine Blood pressure stable on review Thank you for allowing me to participate in the care of this patient. Will follow with you, please notify medical provider with any changes in condition or concerns. 10/01/25:Pt reporting anxiety, asking for a prn-given chlorpromazine 50 mg x 1 dose in trial. No further changes today. 10/02/25: chlorpromazine 25 mg tid prn anxiety-continued trial 10/04/25: Continue tx. * 10/05: no change - pt would like to discuss increasing Remeron dosage with weekday team on Tuesday * 10/06: no change - patient now talking about Klonopin Patient educated on: diagnosis and medication risk/benefits Informed Consent: understands Reason for continued inpatient stay Substantial Risk for: inability to function and rapid decompensation Time Spent With Patient Time: Total time managing care of this patient today _15___ minutes.
[2025-10-06 13:23] LABS: Vitamin D 25-OH, D2 <4 ng/mL; Vitamin D 25-OH, D3 23 ng/mL; Vitamin D 25-OH, Total 23 ng/mL (30-100)
[2025-10-06 14:15] VITALS: BP 161/91
[2025-10-06] MEDS: Milk of Magnesia 30 ML ORAL.SUSP PO (14:15)
[2025-10-06 20:00] VITALS: BP 172/103; PULSE 93; RESP 16; TEMP 36.7
[2025-10-06 20:24] VITALS: BP 182/110
[2025-10-06 21:50] VITALS: BP 137/82; PULSE 101; RESP 18; O2SAT 97
--- NOTE | 2025-10-07 04:52 | PC.NURSE ---
Constipation, Patient alert and orientated X3. Pt continues to not have bowel movement since 10/02/2025. Patient c/o abdominal pain, nausea, and bloating. Abdomen firm and distended with minimal bowel sounds. Pt has been receiving medications that pt reports has not helped. paged tonight regarding the need for further medications. Mag Citrate was ordered. Patient given at 2256 at this time of note pt has not had a BM. Pt up and down throughout night attempting to use bathroom. Patient is drinking fluids as suggested and is compliant. MD updated on status. Pt continues to be nauseas and uncomfortable.
[2025-10-07 08:00] VITALS: BP 152/92; PULSE 103; RESP 16; TEMP 36.8; O2SAT 97
[2025-10-07 08:22] VITALS: BP 152/92; PULSE 97
[2025-10-07] MEDS: Nicotine 21 MG PATCH.TD24 TRANSDERMA (08:38)
--- NOTE | 2025-10-07 09:47 | HO.PSYCHPN ---
Subjective Subjective Date of Service: 10/07/25 Reason For Visit: decompensation Subjective Notes: Conditional Voluntary Healthcare Proxy: No Guardianship: No Medical Problems Affecting Mental Status: No Interim History: Pt reports feeling physically unwell today with constipation, HTN. Several interventions attempted with relief of constipation by the end of the day. Pt resting in bed, anxious, asks about discharge for 10/08-told him we will hold on this and discussed having a family meeting before he leaves which he agrees with. Medication Compliance: Yes Side effects from medications: Yes (?constipation) Attending Groups: Intermittent Review of Systems Acute medical concerns: Yes HTN Constipation Medical Review of Systems: unchanged Review of Systems Review of Systems HTN, Constipation relieved Mental Status Exam Mental Status Exam Patient Appearance: Fatigued Patient Orientation: Person, Place, Time and Situation Level of Consciousness: Alert Patient Behavior: Talkative and Good Eye Contact Mood Description: Depressed Affect Description: Flat Patient Cognition Impaired: No Ability to Follow Directions: Good Speech Pattern: Spontaneous Speech Memory Description: Intact Hallucinations: None Delusions: Not Present Thought Process: Rumination Thought Content: positive for Circumstantial, positive for Perseveration and positive for Suicidal Ideation (denies) Depressive Symptoms: Increased Fatigue, Thoughts of /Suicide (denies) and Loss of Energy Judgement: Fair Diagnostics Vital Signs (24Hr): Vital Signs - 24 hr 10/06/25 14:15 10/06/25 20:00 10/06/25 20:24 Temperature 98.1 F Pulse Rate 93 Respiratory Rate 16 Blood Pressure 161/91 H 172/103 H 182/110 H Pulse Oximetry Oxygen Delivery Method 10/06/25 21:50 10/07/25 08:00 10/07/25 08:22 Temperature 98.3 F Pulse Rate 101 H 103 H 97 Respiratory Rate 18 16 Blood Pressure 137/82 152/92 H 152/92 H Pulse Oximetry 97 97 Oxygen Delivery Method Room Air Room Air 10/07/25 08:22 Temperature Pulse Rate Respiratory Rate Blood Pressure 152/92 H Pulse Oximetry Oxygen Delivery Method BMI result Body Mass Index 31.6 Labs 10/02/25 07:58 10/01/25 00:21 Labs: Laboratory Results - last 48 hr 09/30/25 14:55 25-OH Vitamin D Total 23 L 25-Hydroxy Vitamin D2 <4 25-Hydroxy Vitamin D3 23 Imaging Radiology Impressions: ITS Impressions Head CT 10/03/25 16:22 IMPRESSION: 1. No acute intracranial pathology. 2. Mild brain volume loss, mildly progressed from 2019 and minimally more prominent than expected for patient's age. Electronically signed by: Shelia Barnes MD 10/03/2025 05:40 PM [facility] Medications Medications Current Medications Acetaminophen (Acetaminophen 325 Mg Tablet) 650 mg PO Q6H PRN PRN Reason: Headache/Pain, Scale 1-10 Last Admin: 10/06/25 19:00 Dose: 650 mg Al Hydroxide/Mg Hydroxide (Magnesium Hydrox/Alum Hydrox 30 Ml Oral.Susp) 30 ml PO Q6H PRN PRN Reason: Heartburn/Nausea Last Admin: 10/06/25 05:32 Dose: 30 ml Amlodipine Besylate (Amlodipine Besylate 10 Mg Tablet) 10 mg PO DAILY [facility]; Protocol Last Admin: 10/07/25 08:22 Dose: 10 mg Chlorpromazine HCl (Chlorpromazine Hcl 25 Mg Tablet) 25 mg PO Q6H PRN PRN Reason: anxiety, agitation Last Admin: 10/06/25 14:08 Dose: 25 mg Clomipramine HCl (Clomipramine Hcl 25 Mg Capsule) 50 mg PO BEDTIME YOBANI Last Admin: 10/06/25 20:45 Dose: 50 mg Divalproex Sodium (Divalproex Sodium 250 Mg Tablet.Dr) 750 mg PO BEDTIME YOBANI Last Admin: 10/06/25 20:45 Dose: 750 mg Docusate Sodium (Docusate Sodium 100 Mg Capsule) 100 mg PO BID YOBANI Last Admin: 10/07/25 08:23 Dose: 100 mg Famotidine (Famotidine 20 Mg Tablet) 20 mg PO BID YOBANI Stop: 10/08/25 11:44 Last Admin: 10/07/25 08:23 Dose: 20 mg Hydroxyzine HCl (Hydroxyzine Hcl 50 Mg Tablet) 50 mg PO Q6H PRN PRN Reason: mild anxiety Last Admin: 10/07/25 08:37 Dose: 50 mg [place] Carbonate ([place] Carbonate Er 450 Mg Tablet.Er) 900 mg PO BEDTIME YOBANI Last Admin: 10/06/25 20:45 Dose: 900 mg Magnesium Hydroxide (Milk Of Magnesia 30 Ml Oral.Susp) 30 ml PO DAILY PRN PRN Reason: Constipation Last Admin: 10/06/25 14:15 Dose: 30 ml Melatonin (Melatonin 3 Mg Tablet) 9 mg PO BEDTIME YOBANI Last Admin: 10/06/25 21:27 Dose: 9 mg Mirtazapine (Mirtazapine 15 Mg Tablet) 15 mg PO BEDTIME YOBANI Last Admin: 10/06/25 20:45 Dose: 15 mg Naproxen (Naproxen 500 Mg Tablet) 500 mg PO Q12H PRN On Hold: 09/27/25 15:47 Comment: Order held by Process Transfer PRN Reason: Knee and shoulder pain Nicotine (Nicotine 21 Mg Patch.Td24) 21 mg TRANSDERMA DAILY PRN PRN Reason: smoking cessation Last Admin: 10/07/25 08:38 Dose: 21 mg Nicotine Polacrilex (Nicotine Polacrilex 2 Mg Gum) 4 mg BUCCAL Q2H PRN PRN Reason: Nicotine Cravings Last Admin: 10/05/25 09:32 Dose: 4 mg Olanzapine (Olanzapine 10 Mg Tablet) 10 mg PO TID PRN PRN Reason: agitation Last Admin: 10/06/25 20:46 Dose: 10 mg Olanzapine (Olanzapine 10 Mg Tablet) 10 mg PO BID YOBANI Last Admin: 10/07/25 08:23 Dose: 10 mg Polyethylene Glycol (Polyethylene Glycol 3350 17 Gm Powd.Pack) 17 gm PO DAILY PRN PRN Reason: Constipation Last Admin: 10/06/25 08:00 Dose: 17 gm Propranolol HCl (Propranolol Hcl 20 Mg Tablet) 20 mg PO TID YOBANI; Protocol Last Admin: 10/07/25 08:22 Dose: 20 mg Trazodone HCl (Trazodone Hcl 50 Mg Tablet) 250 mg PO BEDTIME YOBANI Last Admin: 10/06/25 21:27 Dose: 250 mg Allergies Allergies Allergy/AdvReac Type Severity Reaction Status Date / Time duloxetine (From CYMBALTA) Allergy Unknown RASH Verified 09/26/25 19:59 shrimp Allergy Anaphylaxis Verified 09/26/25 19:59 Assessment & Plan Assessment & Plan (1) Bipolar disorder: Status: Acute Code(s): F31.9 - Bipolar disorder, unspecified (2) PTSD (post-traumatic stress disorder): Status: Acute Code(s): F43.10 - Post-traumatic stress disorder, unspecified Plan 50-year-old male with past medical history as listed below presented to emergency room with vague suicidal ideation. He is admitted to inpatient psych for further stabilization. Bipolar disorder/PTSD/suicide ideations/anxiety Treatment per psychiatric team Hypertension Continue amlodipine Blood pressure stable on review Thank you for allowing me to participate in the care of this patient. Will follow with you, please notify medical provider with any changes in condition or concerns. 10/01/25:Pt reporting anxiety, asking for a prn-given chlorpromazine 50 mg x 1 dose in trial. No further changes today. 10/02/25: chlorpromazine 25 mg tid prn anxiety-continued trial 10/04/25: Continue tx. 10/05: no change - pt would like to discuss increasing Remeron dosage with weekday team on Saturday 10/06: no change - patient now talking about Klonopin 10/07: continue tx Reason for continued inpatient stay Substantial Risk for: med/psych decompensation Time Spent With Patient Time: Total time managing care of this patient today ____ minutes.
[2025-10-07 14:54] VITALS: BP 169/98; PULSE 110
--- NOTE | 2025-10-07 14:56 | PC.NURSE ---
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 L 174/112, R 169/98, pulse 110. C/o headache. Reported to provider.
--- NOTE | 2025-10-07 16:16 | PC.NURSE ---
Pt reports BMx3, moderate/large. Soft and hard.
[2025-10-07 19:55] VITALS: BP 141/84; PULSE 98; RESP 18; TEMP 36.8; O2SAT 94
[2025-10-07] MEDS: Milk of Magnesia 30 ML ORAL.SUSP PO (20:19)
[2025-10-08 08:00] VITALS: BP 166/101; PULSE 97; RESP 16; TEMP 36.4; O2SAT 99
[2025-10-08] MEDS: Nicotine 21 MG PATCH.TD24 TRANSDERMA (08:36)
--- NOTE | 2025-10-08 09:37 | HO.PSYCHPN ---
Subjective Subjective Date of Service: 10/08/25 Reason For Visit: decompensation Subjective Notes: Conditional Voluntary Healthcare Proxy: No Guardianship: No Medical Problems Affecting Mental Status: No Interim History: Reports feeling improved. Discussed wanting to have a room or studio apt of his own, I think I can work toward this goal. Discussed having a family meeting which he identifies sisterChayo [phone] as being the one to call as mother and brother will not be able to attend. Reports feeling much improved as constipation is resolving. Hydralazine added for improved BP control by hospitalist team Discussed Mirtazapine increase Discussed Chlorpromazine prn increase Discussed daily Miralax dosage. Medication Compliance: Yes Side effects from medications: No Attending Groups: Intermittent Review of Systems Acute medical concerns: No Medical Review of Systems: unchanged Review of Systems Review of Systems Feeling improved today Mental Status Exam Mental Status Exam Patient Appearance: Appropriate Patient Orientation: Person, Place, Time and Situation Level of Consciousness: Alert Patient Behavior: Talkative and Good Eye Contact Mood Description: Anxious Affect Description: Flat Patient Cognition Impaired: No Ability to Follow Directions: Good Speech Pattern: Spontaneous Speech Memory Description: Intact Hallucinations: None Delusions: Not Present Thought Process: Goal Oriented Thought Content: positive for Circumstantial, positive for Goal Oriented, positive for Perseveration and positive for Suicidal Ideation (denies) Depressive Symptoms: Increased Anxiety and Thoughts of /Suicide (denies) Judgement: Fair Diagnostics Vital Signs (24Hr): Vital Signs - 24 hr 10/07/25 14:54 10/07/25 19:55 10/08/25 08:00 Temperature 98.2 F 97.5 F Pulse Rate 110 H 98 97 Respiratory Rate 18 16 Blood Pressure 169/98 H 141/84 H 166/101 H Pulse Oximetry 94 99 Oxygen Delivery Method Room Air Room Air BMI result Body Mass Index 31.6 Labs 10/02/25 07:58 10/01/25 00:21 Labs: Laboratory Results - last 48 hr 09/30/25 14:55 25-OH Vitamin D Total 23 L 25-Hydroxy Vitamin D2 <4 25-Hydroxy Vitamin D3 23 Imaging Radiology Impressions: ITS Impressions Head CT 10/03/25 16:22 IMPRESSION: 1. No acute intracranial pathology. 2. Mild brain volume loss, mildly progressed from 2019 and minimally more prominent than expected for patient's age. Electronically signed by: Shelia Barnes MD 10/03/2025 05:40 PM EST RP [facility] X-Ray 10/07/25 09:48 IMPRESSION: Gas and stool distends the colon. There may be small bowel distention as well. This is probably related to paralytic ileus or constipation, distal colonic obstruction is less likely. Electronically signed by: Emre Garcia MD 10/07/2025 11:46 AM EST RP Medications Medications Current Medications Acetaminophen (Acetaminophen 325 Mg Tablet) 650 mg PO Q6H PRN PRN Reason: Headache/Pain, Scale 1-10 Last Admin: 10/07/25 19:47 Dose: 650 mg Al Hydroxide/Mg Hydroxide (Magnesium Hydrox/Alum Hydrox 30 Ml Oral.Susp) 30 ml PO Q6H PRN PRN Reason: Heartburn/Nausea Last Admin: 10/06/25 05:32 Dose: 30 ml Amlodipine Besylate (Amlodipine Besylate 10 Mg Tablet) 10 mg PO DAILY [facility]; Protocol Last Admin: 10/08/25 08:36 Dose: 10 mg Chlorpromazine HCl (Chlorpromazine Hcl 25 Mg Tablet) 25 mg PO Q6H PRN PRN Reason: anxiety, agitation Last Admin: 10/06/25 14:08 Dose: 25 mg Clomipramine HCl (Clomipramine Hcl 25 Mg Capsule) 50 mg PO BEDTIME [facility] Last Admin: 10/07/25 20:20 Dose: 50 mg Divalproex Sodium (Divalproex Sodium 250 Mg Tablet.Dr) 750 mg PO BEDTIME [facility] Last Admin: 10/07/25 20:20 Dose: 750 mg Docusate Sodium (Docusate Sodium 100 Mg Capsule) 100 mg PO BID [facility] Last Admin: 10/08/25 08:36 Dose: 100 mg Famotidine (Famotidine 20 Mg Tablet) 20 mg PO BID [facility] Stop: 10/08/25 11:44 Last Admin: 10/08/25 08:36 Dose: 20 mg Hydroxyzine HCl (Hydroxyzine Hcl 50 Mg Tablet) 50 mg PO Q6H PRN PRN Reason: mild anxiety Last Admin: 10/07/25 08:37 Dose: 50 mg [place] Carbonate ([place] Carbonate Er 450 Mg Tablet.Er) 900 mg PO BEDTIME [facility] Last Admin: 10/07/25 20:20 Dose: 900 mg Magnesium Hydroxide (Milk Of Magnesia 30 Ml Oral.Susp) 30 ml PO DAILY PRN PRN Reason: Constipation Last Admin: 10/07/25 20:19 Dose: 30 ml Melatonin (Melatonin 3 Mg Tablet) 9 mg PO BEDTIME [facility] Last Admin: 10/07/25 20:20 Dose: 9 mg Mirtazapine (Mirtazapine 15 Mg Tablet) 15 mg PO BEDTIME [facility] Last Admin: 10/07/25 20:20 Dose: 15 mg Naproxen (Naproxen 500 Mg Tablet) 500 mg PO Q12H PRN On Hold: 09/27/25 15:47 Comment: Order held by Process Transfer PRN Reason: Knee and shoulder pain Nicotine (Nicotine 21 Mg Patch.Td24) 21 mg TRANSDERMA DAILY PRN PRN Reason: smoking cessation Last Admin: 10/08/25 08:36 Dose: 21 mg Nicotine Polacrilex (Nicotine Polacrilex 2 Mg Gum) 4 mg BUCCAL Q2H PRN PRN Reason: Nicotine Cravings Last Admin: 10/05/25 09:32 Dose: 4 mg Olanzapine (Olanzapine 10 Mg Tablet) 10 mg PO TID PRN PRN Reason: agitation Last Admin: 10/07/25 17:50 Dose: 10 mg Olanzapine (Olanzapine 10 Mg Tablet) 10 mg PO BID [facility] Last Admin: 10/08/25 08:36 Dose: 10 mg Polyethylene Glycol (Polyethylene Glycol 3350 17 Gm Powd.Pack) 17 gm PO DAILY PRN PRN Reason: Constipation Last Admin: 10/06/25 08:00 Dose: 17 gm Propranolol HCl (Propranolol Hcl 20 Mg Tablet) 20 mg PO TID [facility]; Protocol Last Admin: 10/08/25 08:35 Dose: 20 mg Trazodone HCl (Trazodone Hcl 50 Mg Tablet) 250 mg PO BEDTIME [facility] Last Admin: 10/07/25 20:20 Dose: 250 mg Allergies Allergies Allergy/AdvReac Type Severity Reaction Status Date / Time duloxetine (From CYMBALTA) Allergy Unknown RASH Verified 09/26/25 19:59 shrimp Allergy Anaphylaxis Verified 09/26/25 19:59 Assessment & Plan Assessment & Plan (1) Bipolar disorder: Status: Acute Code(s): F31.9 - Bipolar disorder, unspecified (2) PTSD (post-traumatic stress disorder): Status: Acute Code(s): F43.10 - Post-traumatic stress disorder, unspecified Plan 50-year-old male with past medical history as listed below presented to emergency room with vague suicidal ideation. He is admitted to inpatient psych for further stabilization. Bipolar disorder/PTSD/suicide ideations/anxiety Treatment per psychiatric team Hypertension Continue amlodipine Blood pressure stable on review Thank you for allowing me to participate in the care of this patient. Will follow with you, please notify medical provider with any changes in condition or concerns. 10/01/25:Pt reporting anxiety, asking for a prn-given chlorpromazine 50 mg x 1 dose in trial. No further changes today. 10/02/25: chlorpromazine 25 mg tid prn anxiety-continued trial 10/04/25: Continue tx. 10/05: no change - pt would like to discuss increasing Remeron dosage with weekday team on Saturday 10/06: no change - patient now talking about Klonopin 10/08: Hydralazine initiated for HTN by hospitalist team Increase Mirtazapine to 30 mg HS Chlorpromazine increase to 50 mg tid prn Miralax scheduled daily Reason for continued inpatient stay Substantial Risk for: rapid decompensation and med/psych decompensation Time Spent With Patient Time: Total time managing care of this patient today ____ minutes.
[2025-10-08 14:28] VITALS: BP 136/89; PULSE 100
[2025-10-08 16:14] VITALS: BP 136/89
[2025-10-08 20:00] VITALS: BP 138/86; PULSE 100; RESP 16; TEMP 36.1; O2SAT 97
[2025-10-09 08:00] VITALS: PULSE 99; O2SAT 99
[2025-10-09 08:08] LABS: Lithium 0.42 mmol/L (0.60-1.20)
--- NOTE | 2025-10-09 09:48 | P.PNPSI_ITS ---
Subjective Subjective Date of Service: 10/09/25 Reason For Visit: decompensation Subjective Notes: Conditional Voluntary Healthcare Proxy: No Guardianship: No Medical Problems Affecting Mental Status: Yes (constipation resolving, knee arthritis pain.) Interim History: [place] 0.42; Valproate 45.8. Pt reports feeling improved. BP continues to run high-discussed attempting to replace chlorpromazine with clonidine-pt is willing. Also discussed pain mgt strategies for knee pain. Pt reports headache, will try Tylenol prn and assess. Full review of meds. Will attempt to contact sister Chayo to discuss discharge planning with pt and team. Medication Compliance: Yes Side effects from medications: No Attending Groups: Intermittent Review of Systems HTN Headache Knee pain-reports hx arthritis Medical Review of Systems: unchanged Review of Systems Review of Systems knee pain headache Mental Status Exam Mental Status Exam Patient Appearance: Appropriate Patient Orientation: Person, Place, Time and Situation Level of Consciousness: Alert Patient Behavior: Talkative and Good Eye Contact Mood Description: Appropriate Affect Description: Appropriate Patient Cognition Impaired: No Ability to Follow Directions: Good Speech Pattern: Spontaneous Speech Memory Description: Intact Hallucinations: None Delusions: Not Present Thought Process: Goal Oriented Thought Content: positive for Circumstantial, positive for Goal Oriented and positive for Suicidal Ideation (denies) Depressive Symptoms: Thoughts of /Suicide (denies) Judgement: Good Diagnostics Vital Signs (24Hr): Vital Signs - 24 hr 10/08/25 14:28 10/08/25 16:14 10/08/25 20:00 Temperature 97 F Pulse Rate 100 100 Respiratory Rate 16 Blood Pressure 136/89 136/89 138/86 Pulse Oximetry 97 Oxygen Delivery Method Room Air BMI result Body Mass Index 31.6 Labs 10/02/25 07:58 10/01/25 00:21 Labs: Laboratory Results - last 48 hr 10/09/25 07:51 Valproic Acid 45.8 L [place] 0.42 L Imaging Radiology Impressions: ITS Impressions Head CT 10/03/25 16:22 IMPRESSION: 1. No acute intracranial pathology. 2. Mild brain volume loss, mildly progressed from 2019 and minimally more prominent than expected for patient's age. Electronically signed by: Shelia Barnes MD 10/03/2025 05:40 PM [facility] [place] [facility] [place] 10/07/25 09:48 IMPRESSION: Gas and stool distends the colon. There may be small bowel distention as well. This is probably related to paralytic ileus or constipation, distal colonic obstruction is less likely. Electronically signed by: Emre Garcia MD 10/07/2025 11:46 AM [facility] [place] Medications Medications Current Medications Acetaminophen (Acetaminophen 325 Mg Tablet) 650 mg PO Q6H PRN PRN Reason: Headache/Pain, Scale 1-10 Last Admin: 10/08/25 13:33 Dose: 650 mg Al Hydroxide/Mg Hydroxide (Magnesium Hydrox/Alum Hydrox 30 Ml Oral.Susp) 30 ml PO Q6H PRN PRN Reason: Heartburn/Nausea Last Admin: 10/06/25 05:32 Dose: 30 ml Amlodipine Besylate (Amlodipine Besylate 10 Mg Tablet) 10 mg PO DAILY [facility]; Protocol Last Admin: 10/09/25 08:15 Dose: 10 mg Chlorpromazine HCl (Chlorpromazine Hcl 25 Mg Tablet) 50 mg PO Q6H PRN PRN Reason: anxiety, agitation Clomipramine HCl (Clomipramine Hcl 25 Mg Capsule) 50 mg PO BEDTIME [facility] Last Admin: 10/08/25 20:29 Dose: 50 mg Divalproex Sodium (Divalproex Sodium 250 Mg Tablet.Dr) 750 mg PO BEDTIME [facility] Last Admin: 10/08/25 20:28 Dose: 750 mg Docusate Sodium (Docusate Sodium 100 Mg Capsule) 100 mg PO BID [facility] Last Admin: 10/09/25 08:15 Dose: 100 mg Hydralazine HCl (Hydralazine Hcl 10 Mg Tablet) 10 mg PO TID [facility]; Protocol Last Admin: 10/09/25 08:15 Dose: 10 mg Hydroxyzine HCl (Hydroxyzine Hcl 50 Mg Tablet) 50 mg PO Q6H PRN PRN Reason: mild anxiety Last Admin: 10/08/25 18:09 Dose: 50 mg [place] Carbonate ([place] Carbonate Er 450 Mg Tablet.Er) 900 mg PO BEDTIME [facility] Last Admin: 10/08/25 20:31 Dose: 900 mg Magnesium Hydroxide (Milk Of Magnesia 30 Ml Oral.Susp) 30 ml PO DAILY PRN PRN Reason: Constipation Last Admin: 10/07/25 20:19 Dose: 30 ml Melatonin (Melatonin 3 Mg Tablet) 9 mg PO BEDTIME [facility] Last Admin: 11/18/25 20:27 Dose: 9 mg Mirtazapine (Mirtazapine 30 Mg Tablet) 30 mg PO BEDTIME [facility] Last Admin: 10/08/25 20:29 Dose: 30 mg Naproxen (Naproxen 500 Mg Tablet) 500 mg PO Q12H PRN On Hold: 09/27/25 15:47 Comment: Order held by Process Transfer PRN Reason: Knee and shoulder pain Nicotine (Nicotine 21 Mg Patch.Td24) 21 mg TRANSDERMA DAILY PRN PRN Reason: smoking cessation Last Admin: 10/08/25 08:36 Dose: 21 mg Nicotine Polacrilex (Nicotine Polacrilex 2 Mg Gum) 4 mg BUCCAL Q2H PRN PRN Reason: Nicotine Cravings Last Admin: 10/05/25 09:32 Dose: 4 mg Olanzapine (Olanzapine 10 Mg Tablet) 10 mg PO TID PRN PRN Reason: agitation Last Admin: 10/07/25 17:50 Dose: 10 mg Olanzapine (Olanzapine 10 Mg Tablet) 10 mg PO BID [facility] Last Admin: 10/09/25 08:15 Dose: 10 mg Polyethylene Glycol (Polyethylene Glycol 3350 17 Gm Powd.Pack) 17 gm PO DAILY [facility] Propranolol HCl (Propranolol Hcl 20 Mg Tablet) 20 mg PO TID [facility]; Protocol Last Admin: 10/09/25 08:15 Dose: 20 mg Trazodone HCl (Trazodone Hcl 50 Mg Tablet) 250 mg PO BEDTIME [facility] Last Admin: 10/08/25 21:20 Dose: 250 mg Vitamin D (Cholecalciferol (Vitamin D3) 25 Mcg Tablet) 25 mcg PO DAILY [facility] Last Admin: 10/09/25 08:15 Dose: 25 mcg Allergies Allergies Allergy/AdvReac Type Severity Reaction Status Date / Time duloxetine (From CYMBALTA) Allergy Unknown RASH Verified 09/26/25 19:59 shrimp Allergy Anaphylaxis Verified 09/26/25 19:59 Assessment & Plan Assessment & Plan (1) Bipolar disorder: Status: Acute Code(s): F31.9 - Bipolar disorder, unspecified (2) PTSD (post-traumatic stress disorder): Status: Acute Code(s): F43.10 - Post-traumatic stress disorder, unspecified Plan 50-year-old male with past medical history as listed below presented to emergency room with vague suicidal ideation. He is admitted to inpatient psych for further stabilization. Bipolar disorder/PTSD/suicide ideations/anxiety Treatment per psychiatric team Hypertension Continue amlodipine Blood pressure stable on review Thank you for allowing me to participate in the care of this patient. Will follow with you, please notify medical provider with any changes in condition or concerns. 10/01/25:Pt reporting anxiety, asking for a prn-given chlorpromazine 50 mg x 1 dose in trial. No further changes today. 10/02/25: chlorpromazine 25 mg tid prn anxiety-continued trial 10/04/25: Continue tx. * 10/05: no change - pt would like to discuss increasing Remeron dosage with weekday team on Tuesday * 10/06: no change - patient now talking about Klonopin * 10/08: Hydralazine initiated for HTN by hospitalist team Increase Mirtazapine to 30 mg HS Chlorpromazine increase to 50 mg tid prn Miralax scheduled daily 10/09: Capsaicin cream for knee pain Vit D3 daily DC Chlorpromazine Clonidine 0.1 mg tid prn anxiety Increase [place] to 1200 mg HS Schedule Miralax Reason for continued inpatient stay Substantial Risk for: rapid decompensation and med/psych decompensation Time Spent With Patient Time: Total time managing care of this patient today ____ minutes.
[2025-10-09] MEDS: Nicotine 21 MG PATCH.TD24 TRANSDERMA (09:53)
[2025-10-09 19:37] VITALS: BP 152/98; PULSE 97; RESP 16; TEMP 37; O2SAT 99
[2025-10-09 19:54] VITALS: BP 152/98
[2025-10-09 20:41] VITALS: BP 152/98; PULSE 97
[2025-10-09 21:52] VITALS: BP 170/84
--- NOTE | 2025-10-09 22:44 | PC.NURSE ---
Jeff c/o a headache 8/10 pain rating, prn Tylenol was not helpful. His BP was 152/98 with a pulse of 97 at 1955. He also complained of bilateral swelling to both lower legs, this sql report writer checked his legs and not non pitting swelling was noted. Patient said he has a history of gout. BP was rechecked later and was noted to be 170/84 with a pulse of 90. call person provider, Ruth Nicholas notified via [facility] text. She ordered a hospitalist consult and a Lactic acid level.
[2025-10-10 08:00] VITALS: BP 140/87; PULSE 94; RESP 18; TEMP 36.7; O2SAT 95
[2025-10-10 08:30] VITALS: BP 140/87
[2025-10-10 08:47] LABS: Uric Acid 4.4 mg/dL (3.4-7.0)
--- NOTE | 2025-10-10 10:15 | P.PNPSI_ITS ---
Subjective Subjective Date of Service: 10/10/25 Reason For Visit: decompensation Subjective Notes: Conditional Voluntary Healthcare Proxy: No Guardianship: No Medical Problems Affecting Mental Status: No Interim History: Team report bilateral leg swelling, pain in toes last p.m., hx gout. Headache last p.m. 8/10. Uric acid wnl Today, positive results with compression stockings. Call to pt's sister who was not available. Will call again. Planning discharge for early next week. Medication Compliance: Yes Side effects from medications: No Attending Groups: Yes Review of Systems as noted Medical Review of Systems: unchanged Review of Systems Review of Systems Denies when we met today Has been having headaches, bilateral leg edema, arthritis pain in knees Mental Status Exam Mental Status Exam Patient Appearance: Appropriate Patient Orientation: Person, Place, Time and Situation Level of Consciousness: Alert Patient Behavior: Talkative and Good Eye Contact Mood Description: Appropriate Affect Description: Appropriate Patient Cognition Impaired: No Ability to Follow Directions: Good Speech Pattern: Spontaneous Speech Memory Description: Intact Hallucinations: None Delusions: Not Present Thought Process: Goal Oriented Thought Content: positive for Circumstantial, positive for Goal Oriented and positive for Suicidal Ideation (denies) Depressive Symptoms: Thoughts of /Suicide (denies) Judgement: Good Diagnostics Vital Signs (24Hr): Vital Signs - 24 hr 10/09/25 19:37 10/09/25 19:54 10/09/25 20:41 Temperature 98.6 F Pulse Rate 97 97 Respiratory Rate 16 Blood Pressure 152/98 H 152/98 H 152/98 H Pulse Oximetry 99 Oxygen Delivery Method Room Air 10/09/25 21:52 10/10/25 08:30 Temperature Pulse Rate Respiratory Rate Blood Pressure 170/84 H 140/87 H Pulse Oximetry Oxygen Delivery Method BMI result Body Mass Index 31.6 Labs 10/02/25 07:58 10/01/25 00:21 Labs: Laboratory Results - last 48 hr 10/09/25 10/10/25 07:51 07:49 Uric Acid 4.4 Valproic Acid 45.8 L [place] 0.42 L Imaging Radiology Impressions: ITS Impressions Head CT 10/03/25 16:22 IMPRESSION: 1. No acute intracranial pathology. 2. Mild brain volume loss, mildly progressed from 2019 and minimally more prominent than expected for patient's age. Electronically signed by: Shelia Barnes MD 10/03/2025 05:40 PM EST RP [facility] X-Ray 10/07/25 09:48 IMPRESSION: Gas and stool distends the colon. There may be small bowel distention as well. This is probably related to paralytic ileus or constipation, distal colonic obstruction is less likely. Electronically signed by: Emre Garcia MD 10/07/2025 11:46 AM EST RP Medications Medications Current Medications Acetaminophen (Acetaminophen 325 Mg Tablet) 650 mg PO Q6H PRN PRN Reason: Headache/Pain, Scale 1-10 Last Admin: 10/09/25 19:55 Dose: 650 mg Al Hydroxide/Mg Hydroxide (Magnesium Hydrox/Alum Hydrox 30 Ml Oral.Susp) 30 ml PO Q6H PRN PRN Reason: Heartburn/Nausea Last Admin: 10/06/25 05:32 Dose: 30 ml Amlodipine Besylate (Amlodipine Besylate 10 Mg Tablet) 10 mg PO DAILY [facility]; Protocol Last Admin: 10/10/25 08:30 Dose: 10 mg Capsaicin (Capsaicin 0.025% Cream 60 Gm Tube) 1 appl TOPICAL QID PRN; Protocol PRN Reason: knee pain Last Admin: 10/09/25 13:34 Dose: 1 appl Clomipramine HCl (Clomipramine Hcl 25 Mg Capsule) 50 mg PO BEDTIME [facility] Last Admin: 10/09/25 20:42 Dose: 50 mg Clonidine HCl (Clonidine Hcl 0.1 Mg Tablet) 0.1 mg PO TID PRN; Protocol PRN Reason: anxiety Last Admin: 10/09/25 21:52 Dose: 0.1 mg Divalproex Sodium (Divalproex Sodium 250 Mg Tablet.Dr) 750 mg PO BEDTIME [facility] Last Admin: 10/09/25 20:42 Dose: 750 mg Docusate Sodium (Docusate Sodium 100 Mg Capsule) 100 mg PO BID [facility] Last Admin: 10/10/25 08:31 Dose: 100 mg Hydralazine HCl (Hydralazine Hcl 10 Mg Tablet) 10 mg PO TID [facility]; Protocol Last Admin: 10/10/25 08:31 Dose: 10 mg Hydroxyzine HCl (Hydroxyzine Hcl 50 Mg Tablet) 50 mg PO Q6H PRN PRN Reason: mild anxiety Last Admin: 10/09/25 21:55 Dose: 50 mg [place] Carbonate ([place] Carbonate Er 300 Mg Tablet.Er) 1,200 mg PO BEDTIME [facility] Last Admin: 10/09/25 20:41 Dose: 1,200 mg Magnesium Hydroxide (Milk Of Magnesia 30 Ml Oral.Susp) 30 ml PO DAILY PRN PRN Reason: Constipation Last Admin: 10/07/25 20:19 Dose: 30 ml Melatonin (Melatonin 3 Mg Tablet) 9 mg PO BEDTIME [facility] Last Admin: 10/09/25 20:42 Dose: 9 mg Mirtazapine (Mirtazapine 30 Mg Tablet) 30 mg PO BEDTIME [facility] Last Admin: 10/09/25 20:41 Dose: 30 mg Nicotine (Nicotine 21 Mg Patch.Td24) 21 mg TRANSDERMA DAILY PRN PRN Reason: smoking cessation Last Admin: 10/09/25 09:53 Dose: 21 mg Nicotine Polacrilex (Nicotine Polacrilex 2 Mg Gum) 4 mg BUCCAL Q2H PRN PRN Reason: Nicotine Cravings Last Admin: 10/05/25 09:32 Dose: 4 mg Olanzapine (Olanzapine 10 Mg Tablet) 10 mg PO TID PRN PRN Reason: agitation Last Admin: 10/09/25 21:55 Dose: 10 mg Olanzapine (Olanzapine 10 Mg Tablet) 10 mg PO BID [facility] Last Admin: 10/10/25 08:30 Dose: 10 mg Polyethylene Glycol (Polyethylene Glycol 3350 17 Gm Powd.Pack) 17 gm PO DAILY [facility] Last Admin: 10/10/25 08:31 Dose: 17 gm Propranolol HCl (Propranolol Hcl 20 Mg Tablet) 20 mg PO TID [facility]; Protocol Last Admin: 10/10/25 08:31 Dose: 20 mg Trazodone HCl (Trazodone Hcl 50 Mg Tablet) 250 mg PO BEDTIME [facility] Last Admin: 10/09/25 21:25 Dose: 250 mg Vitamin D (Cholecalciferol (Vitamin D3) 25 Mcg Tablet) 25 mcg PO DAILY [facility] Last Admin: 10/10/25 08:31 Dose: 25 mcg Allergies Allergies Allergy/AdvReac Type Severity Reaction Status Date / Time duloxetine (From CYMBALTA) Allergy Unknown RASH Verified 09/26/25 19:59 shrimp Allergy Anaphylaxis Verified 09/26/25 19:59 Assessment & Plan Assessment & Plan (1) Bipolar disorder: Status: Acute Code(s): F31.9 - Bipolar disorder, unspecified (2) PTSD (post-traumatic stress disorder): Status: Acute Code(s): F43.10 - Post-traumatic stress disorder, unspecified Plan 50-year-old male with past medical history as listed below presented to emergency room with vague suicidal ideation. He is admitted to inpatient psych for further stabilization. Bipolar disorder/PTSD/suicide ideations/anxiety Treatment per psychiatric team Hypertension Continue amlodipine Blood pressure stable on review Thank you for allowing me to participate in the care of this patient. Will follow with you, please notify medical provider with any changes in condition or concerns. 10/01/25:Pt reporting anxiety, asking for a prn-given chlorpromazine 50 mg x 1 dose in trial. No further changes today. 10/02/25: chlorpromazine 25 mg tid prn anxiety-continued trial 10/04/25: Continue tx. * 10/05: no change - pt would like to discuss increasing Remeron dosage with weekday team on Tuesday * 10/06: no change - patient now talking about Klonopin * 10/08: Hydralazine initiated for HTN by hospitalist team Increase Mirtazapine to 30 mg HS Chlorpromazine increase to 50 mg tid prn Miralax scheduled daily 10/10: Continue tx Reason for continued inpatient stay Substantial Risk for: rapid decompensation and med/psych decompensation Time Spent With Patient Time: Total time managing care of this patient today ____ minutes.
[2025-10-10 15:04] VITALS: BP 161/95
[2025-10-10 20:00] VITALS: BP 168/108; PULSE 84; RESP 16; TEMP 36.3; O2SAT 98
[2025-10-10 20:46] VITALS: BP 138/77; PULSE 80
[2025-10-10 20:47] VITALS: BP 139/87
[2025-10-11 08:00] VITALS: BP 171/102; PULSE 85; TEMP 36.6; O2SAT 97
[2025-10-11] MEDS: Nicotine 21 MG PATCH.TD24 TRANSDERMA (08:56)
--- NOTE | 2025-10-11 10:26 | P.PNPSI_ITS ---
Subjective Subjective Date of Service: 10/11/25 Reason For Visit: decompensation Subjective Notes: Conditional Voluntary Healthcare Proxy: No Guardianship: No Medical Problems Affecting Mental Status: No Interim History: Blood pressure remains elevated after hospitalist has adjusted regime. Team reports pt had reported constipation however pt denies. Compression Stockings are effective per pt report. Denies headache when seen. Attending groups. Call to Chayo salazar [phone]- no answer. Pt reports he is feeling improved. He is visable, social, attending groups. Plan is tentative for DC on 10/14. Labs for 10/14 as well. Medication Compliance: Yes Side effects from medications: No Attending Groups: Yes Review of Systems as noted Medical Review of Systems: unchanged Review of Systems Review of Systems HTN Mental Status Exam Mental Status Exam Patient Appearance: Appropriate Patient Orientation: Person, Place, Time and Situation Level of Consciousness: Alert Patient Behavior: Talkative and Good Eye Contact Mood Description: Appropriate Affect Description: Appropriate Patient Cognition Impaired: No Ability to Follow Directions: Good Speech Pattern: Spontaneous Speech Memory Description: Intact Hallucinations: None Delusions: Not Present Thought Process: Goal Oriented Thought Content: positive for Circumstantial, positive for Goal Oriented and positive for Suicidal Ideation (denies) Depressive Symptoms: Thoughts of /Suicide (denies) Judgement: Good Diagnostics Vital Signs (24Hr): Vital Signs - 24 hr 10/10/25 15:04 10/10/25 20:00 10/10/25 20:46 Temperature 97.4 F Pulse Rate 84 80 Respiratory Rate 16 Blood Pressure 161/95 H 168/108 H 138/77 Pulse Oximetry 98 Oxygen Delivery Method Room Air 10/10/25 20:47 10/11/25 08:00 Temperature 98 F Pulse Rate 85 Respiratory Rate Blood Pressure 139/87 171/102 H Pulse Oximetry 97 Oxygen Delivery Method Room Air BMI result Body Mass Index 31.6 Labs 10/02/25 07:58 10/01/25 00:21 Labs: Laboratory Results - last 48 hr 10/10/25 07:49 Uric Acid 4.4 Imaging Radiology Impressions: ITS Impressions Head CT 10/03/25 16:22 IMPRESSION: 1. No acute intracranial pathology. 2. Mild brain volume loss, mildly progressed from 2019 and minimally more prominent than expected for patient's age. Electronically signed by: Shelia Barnes MD 10/03/2025 05:40 PM EST RP [facility] X-Ray 10/07/25 09:48 IMPRESSION: Gas and stool distends the colon. There may be small bowel distention as well. This is probably related to paralytic ileus or constipation, distal colonic obstruction is less likely. Electronically signed by: Emre Garcia MD 10/07/2025 11:46 AM EST RP Medications Medications Current Medications Acetaminophen (Acetaminophen 325 Mg Tablet) 650 mg PO Q6H PRN PRN Reason: Headache/Pain, Scale 1-10 Last Admin: 10/11/25 05:10 Dose: 650 mg Al Hydroxide/Mg Hydroxide (Magnesium Hydrox/Alum Hydrox 30 Ml Oral.Susp) 30 ml PO Q6H PRN PRN Reason: Heartburn/Nausea Last Admin: 10/06/25 05:32 Dose: 30 ml Amlodipine Besylate (Amlodipine Besylate 10 Mg Tablet) 10 mg PO DAILY YOBANI; Protocol Last Admin: 10/11/25 08:32 Dose: 10 mg Capsaicin (Capsaicin 0.025% Cream 60 Gm Tube) 1 appl TOPICAL QID PRN; Protocol PRN Reason: knee pain Last Admin: 10/11/25 08:55 Dose: 1 appl Clomipramine HCl (Clomipramine Hcl 25 Mg Capsule) 50 mg PO BEDTIME YOBANI Last Admin: 10/10/25 20:45 Dose: 50 mg Clonidine HCl (Clonidine Hcl 0.1 Mg Tablet) 0.1 mg PO TID PRN; Protocol PRN Reason: anxiety Last Admin: 10/09/25 21:52 Dose: 0.1 mg Divalproex Sodium (Divalproex Sodium 250 Mg Tablet.Dr) 750 mg PO BEDTIME YOBANI Last Admin: 10/10/25 20:45 Dose: 750 mg Docusate Sodium (Docusate Sodium 100 Mg Capsule) 100 mg PO BID YOBANI Last Admin: 10/11/25 08:32 Dose: 100 mg Hydralazine HCl (Hydralazine Hcl 10 Mg Tablet) 10 mg PO TID YOBANI; Protocol Last Admin: 10/11/25 08:32 Dose: 10 mg Hydroxyzine HCl (Hydroxyzine Hcl 50 Mg Tablet) 50 mg PO Q6H PRN PRN Reason: mild anxiety Last Admin: 10/11/25 05:11 Dose: 50 mg [place] Carbonate ([place] Carbonate Er 300 Mg Tablet.Er) 1,200 mg PO BEDTIME YOBANI Last Admin: 10/10/25 20:45 Dose: 1,200 mg Magnesium Hydroxide (Milk Of Magnesia 30 Ml Oral.Susp) 30 ml PO DAILY PRN PRN Reason: Constipation Last Admin: 10/07/25 20:19 Dose: 30 ml Melatonin (Melatonin 3 Mg Tablet) 9 mg PO BEDTIME YOBANI Last Admin: 10/10/25 20:45 Dose: 9 mg Mirtazapine (Mirtazapine 30 Mg Tablet) 30 mg PO BEDTIME YOBANI Last Admin: 10/10/25 20:47 Dose: 30 mg Nicotine (Nicotine 21 Mg Patch.Td24) 21 mg TRANSDERMA DAILY PRN PRN Reason: smoking cessation Last Admin: 10/11/25 08:56 Dose: 21 mg Nicotine Polacrilex (Nicotine Polacrilex 2 Mg Gum) 4 mg BUCCAL Q2H PRN PRN Reason: Nicotine Cravings Last Admin: 10/05/25 09:32 Dose: 4 mg Olanzapine (Olanzapine 10 Mg Tablet) 10 mg PO TID PRN PRN Reason: agitation Last Admin: 10/09/25 21:55 Dose: 10 mg Olanzapine (Olanzapine 10 Mg Tablet) 10 mg PO BID YOBANI Last Admin: 10/11/25 08:33 Dose: 10 mg Polyethylene Glycol (Polyethylene Glycol 3350 17 Gm Powd.Pack) 17 gm PO DAILY YOBANI Last Admin: 10/11/25 08:32 Dose: 17 gm Propranolol HCl (Propranolol Hcl 20 Mg Tablet) 20 mg PO TID YOBANI; Protocol Last Admin: 10/11/25 08:33 Dose: 20 mg Trazodone HCl (Trazodone Hcl 50 Mg Tablet) 250 mg PO BEDTIME YOBANI Last Admin: 10/10/25 21:55 Dose: 250 mg Vitamin D (Cholecalciferol (Vitamin D3) 25 Mcg Tablet) 25 mcg PO DAILY YOBANI Last Admin: 10/11/25 08:32 Dose: 25 mcg Allergies Allergies Allergy/AdvReac Type Severity Reaction Status Date / Time duloxetine (From CYMBALTA) Allergy Unknown RASH Verified 09/26/25 19:59 shrimp Allergy Anaphylaxis Verified 09/26/25 19:59 Assessment & Plan Assessment & Plan (1) Bipolar disorder: Status: Acute Code(s): F31.9 - Bipolar disorder, unspecified (2) PTSD (post-traumatic stress disorder): Status: Acute Code(s): F43.10 - Post-traumatic stress disorder, unspecified Plan 50-year-old male with past medical history as listed below presented to emergency room with vague suicidal ideation. He is admitted to inpatient psych for further stabilization. Bipolar disorder/PTSD/suicide ideations/anxiety Treatment per psychiatric team Hypertension Continue amlodipine Blood pressure stable on review Thank you for allowing me to participate in the care of this patient. Will follow with you, please notify medical provider with any changes in condition or concerns. 10/01/25:Pt reporting anxiety, asking for a prn-given chlorpromazine 50 mg x 1 dose in trial. No further changes today. 10/02/25: chlorpromazine 25 mg tid prn anxiety-continued trial 10/04/25: Continue tx. * 10/05: no change - pt would like to discuss increasing Remeron dosage with weekday team on Tuesday * 10/06: no change - patient now talking about Klonopin * 10/08: Hydralazine initiated for HTN by hospitalist team Increase Mirtazapine to 30 mg HS Chlorpromazine increase to 50 mg tid prn Miralax scheduled daily 10/10: Continue tx 10/11: Continue tx Labs for 10/14-[place], Valproate, CBCD, CMP Tentative DC for 10/14 Patient educated on: therapeutic strategies and medical condition Informed Consent: understands Reason for continued inpatient stay Substantial Risk for: rapid decompensation and med/psych decompensation Time Spent With Patient Time: Total time managing care of this patient today ____ minutes.
[2025-10-11 12:39] VITALS: BP 144/89; PULSE 88
[2025-10-11 14:07] VITALS: BP 151/97; PULSE 104
[2025-10-11 20:00] VITALS: BP 139/88; PULSE 87; RESP 20; TEMP 37.1; O2SAT 97
[2025-10-11 20:01] VITALS: BP 139/88
[2025-10-11 20:02] VITALS: BP 139/88; PULSE 87
[2025-10-12 07:26] VITALS: BP 167/95
[2025-10-12 08:35] VITALS: BP 159/96; PULSE 96; RESP 20; TEMP 36.6; O2SAT 97
[2025-10-12] MEDS: Nicotine 21 MG PATCH.TD24 TRANSDERMA (08:39)
[2025-10-12] MEDS: Milk of Magnesia 30 ML ORAL.SUSP PO (12:27)
--- NOTE | 2025-10-12 12:31 | HO.PSYCHPN ---
Subjective Subjective Date of Service: 10/12/25 Reason For Visit: decompensation Interim History: Met with patient; discussed with team; reviewed chart still anxious, asked if mirtzapine could be increased; looked at lithium lab and that lithium recently increased However overall patient feels he is doing well, feeling good about dc next week Mental Status Exam Mental Status Exam Patient Appearance: Appropriate Patient Orientation: Person, Place, Time and Situation Level of Consciousness: Awake, Appropriate and Alert Patient Behavior: Appropriate, Talkative, Cooperative and Good Eye Contact Mood Description: Calm (A little anxious) and Appropriate Affect Description: Appropriate Patient Cognition Impaired: No Ability to Follow Directions: Good Speech Pattern: Spontaneous Speech Memory Description: Intact Hallucinations: None Delusions: Not Present Thought Process: Goal Oriented Thought Content: positive for Circumstantial, positive for Goal Oriented and positive for Suicidal Ideation (denies) Depressive Symptoms: Thoughts of /Suicide (denies) Judgement: Good Diagnostics Vital Signs (24Hr): Vital Signs - 24 hr 10/11/25 12:39 10/11/25 14:07 10/11/25 14:07 Temperature Pulse Rate 88 104 H Respiratory Rate Blood Pressure 144/89 H 151/97 H 151/97 H Pulse Oximetry Oxygen Delivery Method 10/11/25 20:00 10/11/25 20:01 10/11/25 20:02 Temperature 98.7 F Pulse Rate 87 87 Respiratory Rate 20 Blood Pressure 139/88 139/88 139/88 Pulse Oximetry 97 Oxygen Delivery Method Room Air 10/12/25 07:26 10/12/25 08:35 Temperature 97.8 F Pulse Rate 96 Respiratory Rate 20 Blood Pressure 167/95 H 159/96 H Pulse Oximetry 97 Oxygen Delivery Method Room Air BMI result Body Mass Index 31.6 Labs 10/02/25 07:58 10/01/25 00:21 Imaging Radiology Impressions: ITS Impressions Head CT 10/03/25 16:22 IMPRESSION: 1. No acute intracranial pathology. 2. Mild brain volume loss, mildly progressed from 2019 and minimally more prominent than expected for patient's age. Electronically signed by: Shelia Barnes MD 10/03/2025 05:40 PM [facility] X-Ray 10/07/25 09:48 IMPRESSION: Gas and stool distends the colon. There may be small bowel distention as well. This is probably related to paralytic ileus or constipation, distal colonic obstruction is less likely. Electronically signed by: Emre Garcia MD 10/07/2025 11:46 AM [facility] Medications Medications Current Medications Acetaminophen (Acetaminophen 325 Mg Tablet) 650 mg PO Q6H PRN PRN Reason: Headache/Pain, Scale 1-10 Last Admin: 10/12/25 09:32 Dose: 650 mg Al Hydroxide/Mg Hydroxide (Magnesium Hydrox/Alum Hydrox 30 Ml Oral.Susp) 30 ml PO Q6H PRN PRN Reason: Heartburn/Nausea Last Admin: 10/06/25 05:32 Dose: 30 ml Amlodipine Besylate (Amlodipine Besylate 10 Mg Tablet) 10 mg PO DAILY YOBANI; Protocol Last Admin: 10/12/25 08:37 Dose: 10 mg Capsaicin (Capsaicin 0.025% Cream 60 Gm Tube) 1 appl TOPICAL QID PRN; Protocol PRN Reason: knee pain Last Admin: 10/11/25 08:55 Dose: 1 appl Clomipramine HCl (Clomipramine Hcl 25 Mg Capsule) 50 mg PO BEDTIME YOBANI Last Admin: 10/11/25 20:02 Dose: 50 mg Clonidine HCl (Clonidine Hcl 0.1 Mg Tablet) 0.1 mg PO TID PRN; Protocol PRN Reason: anxiety Last Admin: 10/12/25 07:26 Dose: 0.1 mg Divalproex Sodium (Divalproex Sodium 250 Mg Tablet.Dr) 750 mg PO BEDTIME YOBANI Last Admin: 10/11/25 20:01 Dose: 750 mg Docusate Sodium (Docusate Sodium 100 Mg Capsule) 100 mg PO BID YOBANI Last Admin: 10/12/25 08:38 Dose: 100 mg Hydralazine HCl (Hydralazine Hcl 10 Mg Tablet) 10 mg PO TID YOBANI; Protocol Last Admin: 10/12/25 08:36 Dose: 10 mg Hydroxyzine HCl (Hydroxyzine Hcl 50 Mg Tablet) 50 mg PO Q6H PRN PRN Reason: mild anxiety Last Admin: 10/11/25 18:12 Dose: 50 mg [place] Carbonate ([place] Carbonate Er 300 Mg Tablet.Er) 1,200 mg PO BEDTIME YOBANI Last Admin: 10/11/25 20:00 Dose: 1,200 mg Magnesium Hydroxide (Milk Of Magnesia 30 Ml Oral.Susp) 30 ml PO DAILY PRN PRN Reason: Constipation Last Admin: 10/12/25 12:27 Dose: 30 ml Melatonin (Melatonin 3 Mg Tablet) 9 mg PO BEDTIME YOBANI Last Admin: 10/11/25 20:01 Dose: 9 mg Mirtazapine (Mirtazapine 30 Mg Tablet) 30 mg PO BEDTIME YOBANI Last Admin: 10/11/25 20:01 Dose: 30 mg Nicotine (Nicotine 21 Mg Patch.Td24) 21 mg TRANSDERMA DAILY PRN PRN Reason: smoking cessation Last Admin: 10/12/25 08:39 Dose: 21 mg Nicotine Polacrilex (Nicotine Polacrilex 2 Mg Gum) 4 mg BUCCAL Q2H PRN PRN Reason: Nicotine Cravings Last Admin: 10/05/25 09:32 Dose: 4 mg Olanzapine (Olanzapine 10 Mg Tablet) 10 mg PO TID PRN PRN Reason: agitation Last Admin: 10/12/25 10:57 Dose: 10 mg Olanzapine (Olanzapine 10 Mg Tablet) 10 mg PO BID YOBANI Last Admin: 10/12/25 08:37 Dose: 10 mg Polyethylene Glycol (Polyethylene Glycol 3350 17 Gm Powd.Pack) 17 gm PO DAILY YOBANI Last Admin: 10/12/25 08:38 Dose: 17 gm Propranolol HCl (Propranolol Hcl 20 Mg Tablet) 20 mg PO TID YOBANI; Protocol Last Admin: 10/12/25 08:37 Dose: 20 mg Trazodone HCl (Trazodone Hcl 50 Mg Tablet) 250 mg PO BEDTIME YOBANI Last Admin: 10/11/25 20:35 Dose: 250 mg Vitamin D (Cholecalciferol (Vitamin D3) 25 Mcg Tablet) 25 mcg PO DAILY YOBANI Last Admin: 10/12/25 08:37 Dose: 25 mcg Allergies Allergies Allergy/AdvReac Type Severity Reaction Status Date / Time duloxetine (From CYMBALTA) Allergy Unknown RASH Verified 09/26/25 19:59 shrimp Allergy Anaphylaxis Verified 09/26/25 19:59 Assessment & Plan Assessment & Plan (1) Bipolar disorder: Status: Acute Code(s): F31.9 - Bipolar disorder, unspecified (2) PTSD (post-traumatic stress disorder): Status: Acute Code(s): F43.10 - Post-traumatic stress disorder, unspecified Plan 50-year-old male with past medical history as listed below presented to emergency room with vague suicidal ideation. He is admitted to inpatient psych for further stabilization. Bipolar disorder/PTSD/suicide ideations/anxiety Treatment per psychiatric team Hypertension Continue amlodipine Blood pressure stable on review Thank you for allowing me to participate in the care of this patient. Will follow with you, please notify medical provider with any changes in condition or concerns. 10/01/25:Pt reporting anxiety, asking for a prn-given chlorpromazine 50 mg x 1 dose in trial. No further changes today. 10/02/25: chlorpromazine 25 mg tid prn anxiety-continued trial 10/04/25: Continue tx. 10/05: no change - pt would like to discuss increasing Remeron dosage with weekday team on Saturday 10/06: no change - patient now talking about Klonopin 10/08: Hydralazine initiated for HTN by hospitalist team Increase Mirtazapine to 30 mg HS Chlorpromazine increase to 50 mg tid prn Miralax scheduled daily 10/10: Continue tx 10/11: Continue tx Labs for 10/14-[place], Valproate, CBCD, CMP Tentative DC for 10/14 10/12 still anxious, asked if mirtzapine could be increased; looked at lithium lab and that lithium recently increased However overall patient feels he is doing well, feeling good about dc next week -increase mirtazapine to 45 mg Patient educated on: diagnosis, medication risk/benefits and therapeutic strategies Informed Consent: understands Reason for continued inpatient stay Substantial Risk for: stable for discharge Time Spent With Patient Time: Total time managing care of this patient today ____ minutes.
[2025-10-12 15:26] VITALS: BP 132/82; PULSE 98
[2025-10-12 20:00] VITALS: BP 132/85; PULSE 92; RESP 18; TEMP 36.6; O2SAT 97
[2025-10-13] VITALS (9 sets, daily range): BP systolic 139–156; BP diastolic 83–100; PULSE 90–107; RESP 16–18; TEMP 36.3–36.6; O2SAT 96–98
--- NOTE | 2025-10-13 09:21 | P.PNPSI_ITS ---
Subjective Subjective Date of Service: 10/13/25 Reason For Visit: decompensation Interim History: Met with patient; discussed with team Patient reports he is doing well, good mood. No requests, no complaints. [employer] discussed hypertension Hypertensive patient is on hydralazine, amlodipine and propranolol; pt said will f/u with outpt provider Mental Status Exam Mental Status Exam Patient Appearance: Appropriate Patient Orientation: Person, Place, Time and Situation Level of Consciousness: Awake, Appropriate and Alert Patient Behavior: Appropriate, Talkative, Cooperative and Good Eye Contact Mood Description: Calm (A little anxious) and Appropriate Affect Description: Appropriate Patient Cognition Impaired: No Ability to Follow Directions: Good Speech Pattern: Spontaneous Speech Memory Description: Intact Hallucinations: None Delusions: Not Present Thought Process: Goal Oriented Thought Content: positive for Circumstantial, positive for Goal Oriented and positive for Suicidal Ideation (denies) Depressive Symptoms: Thoughts of /Suicide (denies) Judgement: Good Diagnostics Vital Signs (24Hr): Vital Signs - 24 hr 10/12/25 15:26 10/12/25 20:00 10/13/25 08:00 Temperature 97.8 F 97.8 F Pulse Rate 98 92 107 H Respiratory Rate 18 16 Blood Pressure 132/82 132/85 156/100 H Pulse Oximetry 97 96 Oxygen Delivery Method Room Air Room Air BMI result Body Mass Index 31.6 Labs 10/02/25 07:58 10/01/25 00:21 Imaging Radiology Impressions: ITS Impressions Head CT 10/03/25 16:22 IMPRESSION: 1. No acute intracranial pathology. 2. Mild brain volume loss, mildly progressed from 2019 and minimally more prominent than expected for patient's age. Electronically signed by: Shelia Barnes MD 10/03/2025 05:40 PM EST RP [facility] X-Ray 10/07/25 09:48 IMPRESSION: Gas and stool distends the colon. There may be small bowel distention as well. This is probably related to paralytic ileus or constipation, distal colonic obstruction is less likely. Electronically signed by: Emre Garcia MD 10/07/2025 11:46 AM EST RP Medications Medications Current Medications Acetaminophen (Acetaminophen 325 Mg Tablet) 650 mg PO Q6H PRN PRN Reason: Headache/Pain, Scale 1-10 Last Admin: 10/13/25 09:03 Dose: 650 mg Al Hydroxide/Mg Hydroxide (Magnesium Hydrox/Alum Hydrox 30 Ml Oral.Susp) 30 ml PO Q6H PRN PRN Reason: Heartburn/Nausea Last Admin: 10/06/25 05:32 Dose: 30 ml Amlodipine Besylate (Amlodipine Besylate 10 Mg Tablet) 10 mg PO DAILY YOBANI; Protocol Last Admin: 10/13/25 08:21 Dose: 10 mg Capsaicin (Capsaicin 0.025% Cream 60 Gm Tube) 1 appl TOPICAL QID PRN; Protocol PRN Reason: knee pain Last Admin: 10/11/25 08:55 Dose: 1 appl Clomipramine HCl (Clomipramine Hcl 25 Mg Capsule) 50 mg PO BEDTIME YOBANI Last Admin: 10/12/25 21:12 Dose: 50 mg Clonidine HCl (Clonidine Hcl 0.1 Mg Tablet) 0.1 mg PO TID PRN; Protocol PRN Reason: anxiety Last Admin: 10/12/25 07:26 Dose: 0.1 mg Divalproex Sodium (Divalproex Sodium 250 Mg Tablet.Dr) 750 mg PO BEDTIME YOBANI Last Admin: 10/12/25 21:10 Dose: 750 mg Docusate Sodium (Docusate Sodium 100 Mg Capsule) 100 mg PO BID YOBANI Last Admin: 10/13/25 08:21 Dose: 100 mg Hydralazine HCl (Hydralazine Hcl 10 Mg Tablet) 10 mg PO TID YOBANI; Protocol Last Admin: 10/13/25 08:21 Dose: 10 mg Hydroxyzine HCl (Hydroxyzine Hcl 50 Mg Tablet) 50 mg PO Q6H PRN PRN Reason: mild anxiety Last Admin: 10/12/25 14:58 Dose: 50 mg [place] Carbonate ([place] Carbonate Er 300 Mg Tablet.Er) 1,200 mg PO BEDTIME YOBANI Last Admin: 10/12/25 21:12 Dose: 1,200 mg Magnesium Hydroxide (Milk Of Magnesia 30 Ml Oral.Susp) 30 ml PO DAILY PRN PRN Reason: Constipation Last Admin: 10/12/25 12:27 Dose: 30 ml Melatonin (Melatonin 3 Mg Tablet) 9 mg PO BEDTIME YOBANI Last Admin: 10/12/25 21:10 Dose: 9 mg Mirtazapine (Mirtazapine 15 Mg Tablet) 45 mg PO BEDTIME YOBANI Last Admin: 10/12/25 21:13 Dose: 45 mg Nicotine (Nicotine 21 Mg Patch.Td24) 21 mg TRANSDERMA DAILY PRN PRN Reason: smoking cessation Last Admin: 10/12/25 08:39 Dose: 21 mg Nicotine Polacrilex (Nicotine Polacrilex 2 Mg Gum) 4 mg BUCCAL Q2H PRN PRN Reason: Nicotine Cravings Last Admin: 10/05/25 09:32 Dose: 4 mg Olanzapine (Olanzapine 10 Mg Tablet) 10 mg PO TID PRN PRN Reason: agitation Last Admin: 10/12/25 17:43 Dose: 10 mg Olanzapine (Olanzapine 10 Mg Tablet) 10 mg PO BID YOBANI Last Admin: 10/13/25 08:21 Dose: 10 mg Polyethylene Glycol (Polyethylene Glycol 3350 17 Gm Powd.Pack) 17 gm PO DAILY YOBANI Last Admin: 10/13/25 09:03 Dose: 17 gm Propranolol HCl (Propranolol Hcl 20 Mg Tablet) 20 mg PO TID YOBANI; Protocol Last Admin: 10/13/25 08:21 Dose: 20 mg Trazodone HCl (Trazodone Hcl 50 Mg Tablet) 250 mg PO BEDTIME YOBANI Last Admin: 10/12/25 21:11 Dose: 250 mg Vitamin D (Cholecalciferol (Vitamin D3) 25 Mcg Tablet) 25 mcg PO DAILY YOBANI Last Admin: 10/13/25 08:21 Dose: 25 mcg Allergies Allergies Allergy/AdvReac Type Severity Reaction Status Date / Time duloxetine (From CYMBALTA) Allergy Unknown RASH Verified 09/26/25 19:59 shrimp Allergy Anaphylaxis Verified 09/26/25 19:59 Assessment & Plan Assessment & Plan (1) Bipolar disorder: Status: Acute Code(s): F31.9 - Bipolar disorder, unspecified (2) PTSD (post-traumatic stress disorder): Status: Acute Code(s): F43.10 - Post-traumatic stress disorder, unspecified Plan 50-year-old male with past medical history as listed below presented to emergency room with vague suicidal ideation. He is admitted to inpatient psych for further stabilization. Bipolar disorder/PTSD/suicide ideations/anxiety Treatment per psychiatric team Hypertension Continue amlodipine Blood pressure stable on review Thank you for allowing me to participate in the care of this patient. Will follow with you, please notify medical provider with any changes in condition or concerns. 10/01/25:Pt reporting anxiety, asking for a prn-given chlorpromazine 50 mg x 1 dose in trial. No further changes today. 10/02/25: chlorpromazine 25 mg tid prn anxiety-continued trial 10/04/25: Continue tx. * 10/05: no change - pt would like to discuss increasing Remeron dosage with weekday team on Tuesday * 10/06: no change - patient now talking about Klonopin * 10/08: Hydralazine initiated for HTN by hospitalist team Increase Mirtazapine to 30 mg HS Chlorpromazine increase to 50 mg tid prn Miralax scheduled daily 10/10: Continue tx 10/11: Continue tx Labs for 10/14-[place], Valproate, CBCD, CMP Tentative DC for 10/14 10/12 still anxious, asked if mirtzapine could be increased; looked at lithium lab and that lithium recently increased However overall patient feels he is doing well, feeling good about dc next week 10/13 remains doing well; good mood; feels ready for discharge. discussed HTN and pt will discuss with PCP Patient educated on: diagnosis and medication risk/benefits Informed Consent: understands Reason for continued inpatient stay Substantial Risk for: stable for discharge Time Spent With Patient Time: Total time managing care of this patient today ____ minutes.
[2025-10-13] MEDS: Nicotine 21 MG PATCH.TD24 TRANSDERMA (11:16)
[2025-10-14 08:00] VITALS: BP 137/81; PULSE 94; RESP 19; TEMP 37.1; O2SAT 98
[2025-10-14 08:35] VITALS: BP 137/81
[2025-10-14 08:36] VITALS: BP 137/81; PULSE 94
[2025-10-14] MEDS: Nicotine 21 MG PATCH.TD24 TRANSDERMA (08:38)
--- NOTE | 2025-10-14 10:01 | PM.PSYDC ---
DS: Providers Provider Date of Service: 10/14/25 Date of admission: 09/27/25 14:41 Date of discharge: 10/14/25 Primary care physician: Unknown Physician Admitting clinician: Syeda Bueno Attending physician on admission: Theodore Ocampo Consults: 10/07/25 12:57 Consult to Hospitalist Routine Comment: Consulting Provider: [facility] Reason For Exam: severe constipation without response to agents 10/09/25 22:17 Consult to Hospitalist Routine Comment: Consulting Provider: [facility] Reason For Exam: severe headache, bilateral leg edema, 170/84pernsg Attending physician on discharge: Theodore Ocampo Discharging clinician: Natalie Nicholas DS: Diagnosis Discharge Diagnosis (1) Bipolar disorder: Status: Acute (2) PTSD (post-traumatic stress disorder): Status: Acute DS: Medications Discharge Medications Home Medications: Previous Rx's ?Medication ?Instructions ?Recorded acetaminophen 325 mg tablet 650 mg (2 x 325 mg) PO Q6H PRN 10/14/25 Headache/Pain, Scale 1-10 #0 tabs amlodipine 10 mg tablet 10 mg PO DAILY #30 tabs 10/14/25 capsaicin 0.025 % topical cream 1 appl topical QID PRN knee pain 10/14/25 #42.5 grams cholecalciferol (vitamin D3) 25 25 mcg PO DAILY #30 tabs 10/14/25 mcg (1,000 unit) tablet clomipramine 50 mg capsule 50 mg PO BEDTIME #30 caps 10/14/25 clonidine HCl 0.1 mg tablet 0.1 mg PO TID PRN anxiety #15 tabs 10/14/25 divalproex 250 mg tablet,delayed 750 mg (3 x 250 mg) PO BEDTIME 10/14/25 release Mood #90 tabs docusate sodium 100 mg capsule 100 mg PO BID #60 caps 10/14/25 hydralazine 10 mg tablet 10 mg PO TID #90 tabs 10/14/25 hydroxyzine HCl 50 mg tablet 50 mg PO Q6H PRN mild anxiety #15 10/14/25 tabs lithium carbonate 300 mg 1,200 mg (4 x 300 mg) PO BEDTIME 10/14/25 tablet,extended release Mood #120 tabs lurasidone 40 mg tablet 40 mg PO BEDTIME depressive 10/14/25 disorder #30 tabs melatonin 3 mg tablet 9 mg (3 x 3 mg) PO BEDTIME PRN 10/14/25 Insomnia if trazodone not effect #90 tabs mirtazapine 45 mg tablet 45 mg PO BEDTIME #30 tabs 10/14/25 nicotine 21 mg/24 hr daily 21 mg transdermal DAILY PRN 10/14/25 transdermal patch smoking cessation #30 ea olanzapine 10 mg tablet 10 mg PO BID #60 tabs 10/14/25 polyethylene glycol 3350 17 gram 17 g PO DAILY #30 ea 10/14/25 oral powder packet propranolol 20 mg tablet 20 mg PO TID Anxiety #90 tabs 10/14/25 trazodone 100 mg tablet 250 mg (2.5 x 100 mg) PO BEDTIME 10/14/25 #75 tabs Mental Status Exam Mental Status Exam Patient Appearance: Appropriate Patient Orientation: Person, Place, Time and Situation Level of Consciousness: Awake, Appropriate and Alert Patient Behavior: Appropriate, Talkative, Cooperative and Good Eye Contact Mood Description: Calm (A little anxious) and Appropriate Affect Description: Appropriate Patient Cognition Impaired: No Ability to Follow Directions: Good Speech Pattern: Spontaneous Speech Memory Description: Intact Hallucinations: None Delusions: Not Present Thought Process: Goal Oriented Thought Content: positive for Circumstantial, positive for Goal Oriented and positive for Suicidal Ideation (denies) Depressive Symptoms: Thoughts of /Suicide (denies) Judgement: Good Data Data Completed and Pending Completed studies during hospitalization [Text1]: 10/09/25 10/10/25 07:51 07:49 Uric Acid 4.4 Valproic Acid 45.8 L Seis [place] 0.42 L Imaging Diagnostic Imaging Impressions Head CT 10/03/25 16:22 IMPRESSION: 1. No acute intracranial pathology. 2. Mild brain volume loss, mildly progressed from 2018 and minimally more prominent than expected for patient's age. Electronically signed by: Shelia Barnes MD 10/03/2025 05:40 PM EST RP KUB X-Ray 10/07/25 09:48 IMPRESSION: Gas and stool distends the colon. There may be small bowel distention as well. This is probably related to paralytic ileus or constipation, distal colonic obstruction is less likely. Electronically signed by: Emre Garcia MD 10/07/2025 11:46 AM EST RP DS: Summary Hospital Course Hospital Course: Per Care team note: Pt is a 50 year oldHispanic, Bilingual speaking male with hx of HTN, bipolar, PTSD who is assessed by the CARE Team at [facility] after he self presents reporting medication noncompliance x2 weeks due to missing his outpatient appointments. He reports being dropped by his providers, thus being unable to refill his prescriptions. Patient is very familiar with [facility], psych as patient has been admitted here numerous times. He was discharged nn M3 on 07/30 ( from 07/11/25-07/30/25). On M5: patient reports reason for this admission is because he ran out of medications for almost two weeks. He reports that he missed three appointments and when he called the office, left VM but did not get a call back. Report that he needs new OP psychiatrist. Currently has no PCP or therapist neither. Not having meds for 2 weeks affects his mental health, sleep and appetite. Denies SI/SIB/HI/AVH at this current time. Report moderate to severe anxiety/depression. Mood is really bad . Discuss with patient regarding medication plan, he is receptive. Restart all meds but lower dose of [place] 600mg at HS. Will titrate up to 1,200mg in next couple of days as home dose. He does not want to continue with Latuda as it is complicated with food intake which bothers him. In the past, he already had thoughts of stop taking it back and forth. He is aware that we will not continue with Ativan. Hospital Course: Medications were evaluated and adjusted. Medical concerns were addressed by hospitalist team and pt was followed regularly throughout his admission. Pt was able to utilize the milieu to assist in strengthening coping skills. He made sincere, diligent efforts to address symptoms of depression, mood dysregulation and had success which he was able to recognize and experience. Pt will return to his apartment and will continue to work with [facility] in out patient therapy and medication management. Status at Discharge Functional status at discharge: independent ambulation Overall status at discharge: patient is progressing back to baseline Time Spent with Patient Time attestation: Total time managing care of this patient today ____ minutes. Time spent: Less than 30 minutes Discharge Plan Discharge Anticipated Discharge Date/Time: 10/14/25 11:00 Patient Disposition: Home, Self-Care Discharge Diagnosis: PTSD Bipolar Disorder HTN Referrals: [facility] [Other] - 10/15/25 8:30 am Referral Note: Transportation to scheduled hospital discharge appointment [facility] will transport you to and from your appointment. They have a 15 minute madeleine period they will wait for you. Should you need to cancel appointment please call the [facility] transportation phone number. Pick-up will be 8:30 am Return time will be 11:00am [facility] [Other] - 10/24/25 7:30 am Referral Note: Transportation to scheduled hospital discharge appointment [facility] will transport you to and from your appointment. They have a 15 minute madeleine period they will wait for you. Should you need to cancel appointment please call the [facility] transportation phone number. Pick-up will be 7:30 am Return time will be 10:00am [facility]: Sarah Romero (case management) [Other] - 10/15/25 9:00 am Referral Note: Hospital discharge case management appointment Appointment in person at [facility] Isabell Doss (therapy): [facility] [Other] - 10/15/25 9:30 am Referral Note: Hospital discharge appointment Appointment in person at [facility] Coleen Culver (psychiatry): [facility] [Other] - 10/24/25 8:20 am Referral Note: Hospital discharge appointment Appointment in person at [facility] in [facility] Fawn Maki MD [Physician, Medical] - 10/28/25 10:15 am Referral Note: In office appointment . fax number was provided [phone] Discharge Medications: New hydralazine 10 mg Tablet 10 mg PO TID Qty: 90 0RF Protocol: Hold for SBP< HOLD for SBP < : 90 clonidine HCl 0.1 mg Tablet 0.1 mg PO TID PRN (Reason: anxiety) Qty: 15 0RF Protocol: Hold for SBP< HOLD for SBP < : 90 acetaminophen 325 mg Tablet 650 mg PO Q6H PRN (Reason: Headache/Pain, Scale 1-10) Qty: 0 0RF olanzapine 10 mg Tablet 10 mg PO BID Qty: 60 0RF hydroxyzine HCl 50 mg Tablet 50 mg PO Q6H PRN (Reason: mild anxiety) Qty: 15 0RF amlodipine 10 mg Tablet 10 mg PO DAILY Qty: 30 0RF Protocol: Hold for SBP< HOLD for SBP < : 90 nicotine 21 mg/24 hr Patch 24 Hour 21 mg transdermal DAILY PRN (Reason: smoking cessation) Qty: 30 0RF docusate sodium 100 mg Capsule 100 mg PO BID Qty: 60 0RF polyethylene glycol 3350 17 gram Powder In Packet 17 g PO DAILY Qty: 30 0RF capsaicin 0.025 % Cream 1 appl topical QID PRN (Reason: knee pain) Qty: 42.5 0RF Protocol: Apply to: Apply to: knees cholecalciferol (vitamin D3) 25 mcg (1,000 unit) Tablet 25 mcg PO DAILY Qty: 30 0RF mirtazapine 45 mg tablet 45 mg PO BEDTIME Qty: 30 0RF trazodone 100 mg tablet 250 mg PO BEDTIME Qty: 75 0RF Continued divalproex 250 mg Tablet,Delayed Release (Dr/Ec) 750 mg PO BEDTIME Qty: 90 0RF lithium carbonate 300 mg Tablet Extended Release 1,200 mg PO BEDTIME Qty: 120 0RF melatonin 3 mg Tablet 9 mg PO BEDTIME PRN (Reason: Insomnia if trazodone not effect) Qty: 90 0RF clomipramine 50 mg capsule 50 mg PO BEDTIME Qty: 30 0RF propranolol 20 mg Tablet 20 mg PO TID Qty: 90 0RF lurasidone 40 mg tablet 40 mg PO BEDTIME Qty: 30 0RF Discontinued amlodipine 5 mg Tablet 5 mg PO DAILY Qty: 30 0RF Protocol: Hold for SBP< HOLD for SBP < : 90 hydroxyzine pamoate 50 mg Capsule 50 mg PO Q8H PRN (Reason: Anxiety) Qty: 60 0RF trazodone 100 mg tablet 200 mg PO BEDTIME PRN (Reason: Sleep) Qty: 60 0RF mirtazapine 15 mg Tablet 45 mg PO BEDTIME 30 Days Qty: 90 0RF naproxen 500 mg Tablet 500 mg PO Q12H PRN (Reason: Knee and shoulder pain) Qty: 45 0RF trazodone 50 mg tablet 50 mg PO BEDTIME PRN (Reason: insomnia) Discharge Orders: Discharge Order (Routine); Ordered 10/14/25 Ordered By: Natalie Nicholas Diet: Advance to usual diet Activity on Discharge: As tolerated Stand Alone Forms: Patient Portal Discharge page, Community Support Print Language: Angolan Care Plan Goals: Mood and Behavioral Stabilization Health Concerns: Mood and Behavioral Stabilization Plan of Treatment: Attend scheduled appointments Take medications as directed Assessment: Pt agrees with plan of care No SI,HI,AH,VH Discharge Date/Time: 10/14/25 11:59
== END 2025-10-14 11:59 | disposition home or self-care (01) | DRG 885 ==
LOC: HO.ED 20:37 → HO.PM5 09-27 14:41
PROVIDERS: Nurse Practitioner Family; Physician Assistant; Physician Assistant Medical; Psychiatry & Neurology Psychiatry; Admitting Provider Psychiatry & Neurology Psychiatry; Emergency Provider Emergency Medicine; Visit Provider Clinical Nurse Specialist Psychiatric/Mental Health, Adult
DX: F31.30 Bipolar disorder, current episode depressed, mild or moderate severity, unspecified (principal); R45.851 Suicidal ideations; F43.10 Post-traumatic stress disorder, unspecified; I10 Essential (primary) hypertension; Z20.822 Contact with and (suspected) exposure to COVID-19; F17.210 Nicotine dependence, cigarettes, uncomplicated; Z71.6 Tobacco abuse counseling; Z79.899 Other long term (current) drug therapy
CPT/HCPCS: 36415; 70450; 74018; 74176; 80053; 80061; 80143; 80164; 80178; 80179; 80307; 81003; 82140; 82306; 82607; 82746; 83036; 83540; 83690; 84443; 84550; 85025; 85652; 86140; 87389; 87635; 93005; 99285; S9485

== ENCOUNTER → 2025-09-27 11:28 | Outpatient (BNV) | payer OTHER, SELFPAY | PROVIDERS: Admitting Provider Psychiatry & Neurology Psychiatry; Emergency Provider Emergency Medicine; Visit Provider Internal Medicine Cardiovascular Disease | DX: R00.1 Bradycardia, unspecified (principal); I21.29 ST elevation (STEMI) myocardial infarction involving other sites | CPT/HCPCS: 93010 ==

== ENCOUNTER 2025-09-27 14:41 | Outpatient (BNV) | payer OTHER, SELFPAY | END 2025-10-07 09:48 | PROVIDERS: Admitting Provider Psychiatry & Neurology Psychiatry; Emergency Provider Emergency Medicine; Visit Provider Radiology Diagnostic Radiology | DX: R14.0 Abdominal distension (gaseous) (principal) | CPT/HCPCS: 74018 ==

== ENCOUNTER 2025-09-27 14:41 | Outpatient (BNV) | payer OTHER, SELFPAY | END 2025-10-04 15:00 | PROVIDERS: Admitting Provider Psychiatry & Neurology Psychiatry; Emergency Provider Emergency Medicine; Visit Provider Internal Medicine Cardiovascular Disease | DX: R94.31 Abnormal electrocardiogram [ECG] [EKG] (principal); R07.9 Chest pain, unspecified | CPT/HCPCS: 93010 ==

== ENCOUNTER 2025-09-27 14:41 | Outpatient (BNV) | payer OTHER, SELFPAY | END 2025-10-01 | PROVIDERS: Admitting Provider Psychiatry & Neurology Psychiatry; Emergency Provider Emergency Medicine; Visit Provider Radiology Diagnostic Radiology | DX: R10.9 Unspecified abdominal pain (principal) | CPT/HCPCS: 74176 ==

== ENCOUNTER 2025-09-27 14:41 | Outpatient (BNV) | payer OTHER, SELFPAY | END 2025-10-03 16:22 | PROVIDERS: Admitting Provider Psychiatry & Neurology Psychiatry; Emergency Provider Emergency Medicine; Visit Provider Radiology Body Imaging | DX: R41.3 Other amnesia (principal) | CPT/HCPCS: 70450 ==

== ENCOUNTER → 2025-09-27 14:41 | Outpatient (BNV) | payer OTHER, SELFPAY | PROVIDERS: Admitting Provider Psychiatry & Neurology Psychiatry; Emergency Provider Emergency Medicine; Visit Provider Nurse Practitioner Family | DX: I10 Essential (primary) hypertension (principal) | CPT/HCPCS: 99221; 99231; 99499 ==

== ENCOUNTER → 2025-09-27 14:41 | Outpatient (BNV) | payer OTHER, SELFPAY | PROVIDERS: Admitting Provider Psychiatry & Neurology Psychiatry; Emergency Provider Emergency Medicine; Visit Provider Psychiatry & Neurology Psychiatry | DX: F31.30 Bipolar disorder, current episode depressed, mild or moderate severity, unspecified (principal); F43.10 Post-traumatic stress disorder, unspecified; R45.851 Suicidal ideations; I10 Essential (primary) hypertension | CPT/HCPCS: 90792; 99232 ==

== ENCOUNTER → 2025-11-11 07:49 | Outpatient (BNV) | payer OTHER, SELFPAY | PROVIDERS: Emergency Provider Emergency Medicine; Visit Provider Internal Medicine Cardiovascular Disease | DX: R94.31 Abnormal electrocardiogram [ECG] [EKG] (principal); Z13.6 Encounter for screening for cardiovascular disorders | CPT/HCPCS: 93010 ==

== ENCOUNTER → 2025-11-11 12:12 | Outpatient (BNV) | payer OTHER, SELFPAY | PROVIDERS: Admitting Provider Nurse Practitioner Psychiatric/Mental Health; Emergency Provider Emergency Medicine; Visit Provider Nurse Practitioner Family | DX: I10 Essential (primary) hypertension (principal) | CPT/HCPCS: 99221; 99231; 99499 ==

== ENCOUNTER → 2025-11-11 12:12 | Outpatient (BNV) | payer OTHER, SELFPAY | PROVIDERS: Admitting Provider Nurse Practitioner Psychiatric/Mental Health; Emergency Provider Emergency Medicine; Visit Provider Clinical Nurse Specialist Psychiatric/Mental Health, Adult | DX: F31.9 Bipolar disorder, unspecified (principal); F43.10 Post-traumatic stress disorder, unspecified; F12.90 Cannabis use, unspecified, uncomplicated | CPT/HCPCS: 90792 ==